=== PATIENT | female | born 1955 | race Caucasian/White ===

== ENCOUNTER → 2017-01-17 | Outpatient (CLI) | payer OTHER ==
--- NOTE | 2017-01-19 08:00 | MM ---
Reason for exam: screening (asymptomatic). Last mammogram was performed 3 years ago. History: Patient is postmenopausal. Physical Findings: A clinical breast exam by your physician is recommended on an annual basis and results should be correlated with mammographic findings. MG Screening Mammo w CAD Bilateral CC and MLO view(s) were taken. Prior study comparison: January 30, 2014, bilateral MG screening mammo w CAD. September 23, 1998, bilateral screening mammogram. The breast tissue is heterogeneously dense. This may lower the sensitivity of mammography. New oil cyst anterior right breast. No significant changes when compared with prior studies. ASSESSMENT: Negative, BI-RAD 1 RECOMMENDATION: Routine screening mammogram of both breasts in 1 year.
== END | disposition home or self-care (01) ==
LOC: RADMAMWWP 13:44
PROVIDERS: ATTEND Internal Medicine
DX: Z12.31 Encounter for screening mammogram for malignant neoplasm of breast (principal)

== ENCOUNTER 2017-01-22 03:56 | Inpatient (IN) | payer OTHER ==
[2017-01-22] MEDS ORDERED: SODIUM CHLORIDE 0.9% 500 ML IV STA (04:09)
[2017-01-22] MEDS ORDERED: ACETYLCYSTEINE IV 10,000 MG in DEXTROSE 5% IN WATER 200 ML IV ONE ×2 (04:09)
[2017-01-22] MEDS ORDERED: ONDANSETRON 4 MG/2 ML VIAL IVP PRN (04:09)
[2017-01-22] MEDS ORDERED: SODIUM CHLORIDE 0.9% 1,000 ML IV STA (04:09)
--- NOTE | 2017-01-22 04:17 | ED ---
General Adult HPI - General Chief complaint: Overdose Stated complaint: Suicidal Time Seen by Provider: 01/22/17 04:08 Source: EMS, RN notes reviewed, old records reviewed Mode of arrival: EMS Limitations: no limitations - History of Present Illness Initial comments: This is a 7-year-old female to the ER for evaluation for overdose. Patient took unknown quantity of Tylenol, patient states she took anywhere from 20-48 pills of Tylenol PM which contained 500 mg of Tylenol. Patient took overdose and suicide attempt - Related Data Home Medications Medication Instructions Recorded Confirmed Albuterol Inhaler [Ventolin 1 - 2 puff INHALATION Q6HR PRN 03/12/14 07/11/15 Inhaler] Fluticasone/Salmeterol [Advair 1 puff INHALATION BID PRN 03/12/14 07/11/15 500-50 Diskus] Acetaminophen/Diphenhydramine 1 tab PO HS PRN 07/11/15 07/11/15 [Tylenol PM 500-25mg] Albuterol Updraft (Unknown Dose) 1 dose INHALATION DIRECTED PRN 07/11/1508/20 Cholecalciferol (Vitamin D3) 50,000 unit PO QMONTH 07/11/15 07/11/15 [Vitamin D] Folic Acid 1 mg PO DAILY 07/11/15 07/11/15 HYDROcodone/APAP 5-325MG [Sodus 1 tab PO Q6HR PRN 07/11/15 07/11/15 5-325] LORazepam [Ativan] 1 mg PO DAILY 07/11/15 07/11/15 Methylphenidate HCl [Ritalin] 20 mg PO TID 07/11/15 07/11/15 Pantoprazole Sodium [Protonix] 40 mg PO DAILY 07/11/15 07/11/15 Potassium Chloride [K-Tab ER] 10 meq PO DAILY 07/11/15 07/11/15 Thiamine [Vitamin B-1] 100 mg PO DAILY 07/11/15 07/11/15 Previous Rx's Medication Instructions Recorded HYDROcodone/APAP 7.5-325MG [Sodus 1 each PO Q4H PRN #60 tab 07/16/15 7.5] Allergies Allergy/AdvReac Type Severity Reaction Status Date / Time No Known Allergies Allergy Verified 07/11/15 09:20 Review of Systems ROS Statement: Those systems with pertinent positive or pertinent negative responses have been documented in the HPI. ROS Other: All systems not noted in ROS Statement are negative. Past Medical History Past Medical History: Asthma, GERD/Reflux, Osteoarthritis (OA) Additional Past Medical History / Comment(s): ARTHRITIS IN NECK, SEE'S DR TORIBIO FOR ELEVATED LIVER ENZYMES., HX OF PERFORATED STOMACH ULCER., INCISIONAL HERNIA., PT STATES LASER SURGERY SCHEDULED FOR VARICOSE VEINS 07/25/15. History of Any Multi-Drug Resistant Organisms: None Reported Past Surgical History: Tubal Ligation Additional Past Surgical History / Comment(s): PLASTIC SURGERY TO FOREHEAD, PERFORATED STOMACH ULCER. Past Anesthesia/Blood Transfusion Reactions: No Reported Reaction Past Psychological History: ADD/ADHD, Anxiety Smoking Status: Current every day smoker Past Alcohol Use History: None Reported Past Drug Use History: None Reported - Past Family History Mother Family Medical History: Cancer Additional Family Medical History / Comment(s): OVARIAN CA General Exam Limitations: no limitations General appearance: alert, in no apparent distress Head exam: Present: atraumatic, normocephalic, normal inspection Eye exam: Present: normal appearance, PERRL, EOMI. Absent: scleral icterus, conjunctival injection, periorbital swelling ENT exam: Present: normal exam, mucous membranes moist Neck exam: Present: normal inspection. Absent: tenderness, meningismus, lymphadenopathy Respiratory exam: Present: normal lung sounds bilaterally. Absent: respiratory distress, wheezes, rales, rhonchi, stridor Cardiovascular Exam: Present: regular rate, normal rhythm, normal heart sounds. Absent: systolic murmur, diastolic murmur, rubs, gallop, clicks GI/Abdominal exam: Present: soft, normal bowel sounds. Absent: distended, tenderness, guarding, rebound, rigid Extremities exam: Present: normal inspection, full ROM, normal capillary refill. Absent: tenderness, pedal edema, joint swelling, calf tenderness Back exam: Present: normal inspection Neurological exam: Present: alert, oriented X3, CN II-XII intact Psychiatric exam: Present: normal affect, normal mood Skin exam: Present: warm, dry, intact, normal color. Absent: rash Course Vital Signs 01/22/17 04:01 Temperature 97.1 F L Pulse Rate 98 Respiratory 18 Rate Blood Pressure 151/74 O2 Sat by Pulse 98 Oximetry - Reevaluation(s) Reevaluation #1: 01/22/17 04:16 Time of overdose 0310 Patient is started on Mucomyst due to severity and of overdose Medical Decision Making - Medical Decision Making 61 female to ER for evaluation of overdose, overdose with Tylenol PM. Patient is awake and alert able to be aroused, mildly drowsy but breathing appropriately. Patient is severely elevated Tylenol level, patient will be admitted for Tylenol overdose - Lab Data Result diagrams: 01/22/17 04:10 01/22/17 04:10 Lab Results 01/22/17 01/22/17 01/22/17 Range/Units 04:10 04:10 04:10 WBC 6.4 (3.8-10.6) k/uL RBC 4.49 (3.80-5.40) m/uL Hgb 13.3 (11.4-16.0) gm/dL Hct 40.9 (34.0-46.0) % MCV 91.1 (80.0-100.0) fL MCH 29.6 (25.0-35.0) pg MCHC 32.5 (31.0-37.0) g/dL RDW 13.8 (11.5-15.5) % Plt Count 132 L (150-450) k/uL Neutrophils % (Manual) 35 % Lymphocytes % (Manual) 61 % Monocytes % (Manual) 4 % Neutrophils # (Manual) 2.24 (1.3-7.7) k/uL Lymphocytes # (Manual) 3.90 (1.0-4.8) k/uL Monocytes # (Manual) 0.26 (0-1.0) k/uL Nucleated RBCs 0 (0-0) /100 WBC Manual Slide Review Performed PT 11.3 (9.0-12.0) sec INR 1.1 (<1.2) Sodium 134 L (137-145) mmol/L Potassium 3.8 (3.5-5.1) mmol/L Chloride 103 (98-107) mmol/L Carbon Dioxide 17 L (22-30) mmol/L Anion Gap 14 mmol/L BUN 4 L (7-17) mg/dL Creatinine 0.50 L (0.52-1.04) mg/dL Est GFR (MDRD) Af Amer >60 (>60 ml/min/1.73 sqM) Est GFR (MDRD) Non-Af >60 (>60 ml/min/1.73 sqM) Glucose 73 L (74-99) mg/dL Calcium 9.1 (8.4-10.2) mg/dL Total Bilirubin 0.5 (0.2-1.3) mg/dL AST 152 H (14-36) U/L ALT 95 H (9-52) U/L Alkaline Phosphatase 79 (38-126) U/L Total Protein 8.3 H (6.3-8.2) g/dL Albumin 4.1 (3.5-5.0) g/dL Lipase 127 (23-300) U/L Salicylates 1.1 mg/dL Acetaminophen 143.0 H* ug/mL Serum Alcohol 209 mg/dL Disposition Clinical Impression: Acetaminophen overdose, Suicide attempt Disposition: ADMITTED IP TO THIS HOSP Condition: Critical Referrals: Car Beltran MD [Primary Care Provider] - 1-2 days
[2017-01-22 04:29] LABS: CH 30.1; CHCM 33.2; HCT 40.9 % (34.0-46.0); HGB 13.3 gm/dL (11.4-16.0); MCH 29.6 pg (25.0-35.0); MCHC 32.5 g/dL (31.0-37.0); MCV 91.1 fL (80.0-100.0); Mean Platelet Volume 6.8; RBC 4.49 m/uL (3.80-5.40); RDW 13.8 % (11.5-15.5); WBC 6.4 k/uL (3.8-10.6); WBC (Perox) 6.25
[2017-01-22 04:38] LABS: INR 1.1 (<1.2); Prothrombin Time 11.3 sec (9.0-12.0)
[2017-01-22 04:39] LABS: ALT 95 U/L (9-52); AST 152 U/L (14-36); Alkaline Phosphatase 79 U/L (38-126); Anion Gap 14 mmol/L; Blood Urea Nitrogen 4 mg/dL (7-17); Calcium 9.1 mg/dL (8.4-10.2); Carbon Dioxide 17 mmol/L (22-30); Chloride 103 mmol/L (98-107); Glucose 73 mg/dL (74-99); Non-African American GFR(MDRD) >60 (>60 ml/min/1.73 sqM); Potassium 3.8 mmol/L (3.5-5.1); Salicylate 1.1 mg/dL; Sodium 134 mmol/L (137-145); Total Bilirubin 0.5 mg/dL (0.2-1.3); Total Protein 8.3 g/dL (6.3-8.2)
[2017-01-22 04:56] LABS: Add Differential Manual Differential
[2017-01-22 04:58] LABS: Alcohol 209 mg/dL; Manual Review Performed; Nucleated Red Blood Cells 0 /100 WBC (0-0); Total Cells Counted 100
[2017-01-22] MEDS ORDERED: SODIUM CHLORIDE 0.9% 1,000 ML IV ONE (05:02)
[2017-01-22 05:30] LABS: Creatine Kinase MB 1.4 ng/mL (0.0-2.4)
[2017-01-22 05:37] LABS: Appearance,Urine Clear (Clear); Bilirubin,Urine Negative (Negative); Glucose,Urine (UA) Negative (Negative); Ketones,Urine Negative (Negative); Leukocyte Esterase,Urine Negative (Negative); Nitrite,Urine Negative (Negative); Protein,Urine Negative (Negative); Specific Gravity,Urine 1.003 (1.001-1.035); UA Billing (MACRO vs. MICRO) CHEM; Urobilinogen,Urine <2.0 mg/dL (<2.0)
[2017-01-22] MEDS ORDERED: DEXTROSE 5% IV ONE ×4 (05:40→10:15)
[2017-01-22] MEDS ORDERED: ACETYLCYSTEINE IV ONE ×4 (05:40→10:15)
[2017-01-22] MEDS ORDERED: WATER IV ONE ×4 (05:40→10:15)
[2017-01-22 08:45] VITALS: RESP 18
[2017-01-22] MEDS ORDERED: LORazepam 2 MG/ML INJ IV PRN ×2 (11:59)
[2017-01-22 12:01] LABS: Basophils % (A) 1 %; CHCM 31.9; Eosinophils # (A) 0.1 k/uL (0-0.7); Eosinophils % (A) 1 %; HCT 40.7 % (34.0-46.0); HDW 2.34; Luc # (Auto) 0.06; Luc % (Auto) 2; Lymphocytes % (A) 54 %; MCH 30.1 pg (25.0-35.0); MCHC 31.9 g/dL (31.0-37.0); MCV 94.5 fL (80.0-100.0); Mean Platelet Volume 7.7; Monocytes # (A) 0.3 k/uL (0-1.0); Monocytes % (A) 8 %; Neutrophils # (A) 1.3 k/uL (1.3-7.7); Neutrophils % (A) 34 %; RBC 4.31 m/uL (3.80-5.40); RDW 14.8 % (11.5-15.5); WBC 3.7 k/uL (3.8-10.6); WBC (Perox) 3.47
[2017-01-22] MEDS ORDERED: THIAMINE 100 MG/ML 2 ML VIAL IM STA (12:01)
--- NOTE | 2017-01-22 12:03 | P.HPIM ---
History of Present Illness H&P Date: 01/22/17 Chief Complaint: Tylenol overdose/suicidal attempt Clara Marshall is a 61-year-old female patient of Dr. Morales who presented to the [facility] emergency room after taking about 30-50 pills of Tylenol PM in an apparent suicidal attempt, patient was evaluated in the emergency room she had elevated acetaminophen level at 143, she was started on Acetylcysteine IV and was admitted to telemetry floor for further evaluation. Liver enzymes were elevated on presentation at 152 and 95, patient also admits to drinking alcohol, family at bedside also states that she has used drugs in the past, urine toxicology testing was positive only for acetaminophen. Patient was also started on the CIWA protocol she is being monitored on telemetry. Psychiatry consultation has been requested, patient is threatening to leave the hospital, family are requesting that she would be petitioned so she wouldn't have to stay and finished treatment. Patient has a known history of hepatitis C also history of peptic ulcer disease requiring surgery 2 years ago also there is a history of laser treatment to the right lower extremity for varicose vein patient states that she has chronic pain in her right lower extremity. Patient also has known history of asthma, GERD, and osteoarthritis. Past Medical History Past Medical History: Asthma, GERD/Reflux, Osteoarthritis (OA) Additional Past Medical History / Comment(s): ARTHRITIS IN NECK, SEE'S DR TORIBIO FOR ELEVATED LIVER ENZYMES., HX OF PERFORATED STOMACH ULCER., INCISIONAL HERNIA., LASER SURGERY FOR VARICOSE VEINS 07/25/15. Maggi states patient has HEPATITIS C History of Any Multi-Drug Resistant Organisms: None Reported Past Surgical History: Tubal Ligation Additional Past Surgical History / Comment(s): PLASTIC SURGERY TO FOREHEAD, PERFORATED STOMACH ULCER. laser surgery to right leg for varicose veins Past Anesthesia/Blood Transfusion Reactions: No Reported Reaction Past Psychological History: ADD/ADHD, Anxiety, Depression Additional Psychological History / Comment(s): Patient has not been taking ritalin per sister and has been very depressed for years, but has never taken medication for depression. Smoking Status: Current every day smoker Past Alcohol Use History: None Reported Additional Past Alcohol Use History / Comment(s): STARTED SMOKING AT AGE 13 per sister, SMOKING NOW 1/2 PPD at least, is a heavy smoker and chain smokes when able. SMOKING FOR 48 YEARS. 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 Also known to smoke crack in October/November 2016. Sister believes that she is not using anything at this time. - Past Family History Mother Family Medical History: Cancer Additional Family Medical History / Comment(s): OVARIAN CA Father History Unknown: Yes Additional Family Medical History / Comment(s): father when patient was very young (2 year old), he of a gunshot wound outside of a bar at the age of 23 Medications and Allergies Home Medications Medication Instructions Recorded Confirmed Type Albuterol Inhaler [Ventolin 1 - 2 puff INHALATION RT-Q6H PRN 03/12/14 01/22/17 History Inhaler] Fluticasone/Salmeterol [Advair 1 puff INHALATION RT-BID PRN 03/12/14 01/22/17 History 500-50 Diskus] Acetaminophen/Diphenhydramine 1 tab PO HS PRN 07/11/15 01/22/17 History [Tylenol PM 500-25mg] Cholecalciferol (Vitamin D3) 50,000 unit PO FR 07/11/15 01/22/17 History [Vitamin D] Pantoprazole Sodium [Protonix] 40 mg PO DAILY 07/11/15 01/22/17 History Potassium Chloride [K-Tab ER] 10 meq PO DAILY 07/11/15 01/22/17 History Allergies Allergy/AdvReac Type Severity Reaction Status Date / Time methylphenidate Allergy Anaphylaxis Verified 01/22/17 11:36 [From Ritalin] Physical Exam Vitals: Vital Signs Temp Pulse Pulse Resp BP BP Pulse Ox 01/22/17 11:16 96.8 F L 85 18 145/97 98 01/22/17 08:00 96.8 F L 85 18 145/97 98 01/22/17 06:30 97.2 F L 88 19 152/100 100 01/22/17 05:55 80 20 116/74 98 01/22/17 04:50 90 20 119/71 99 01/22/17 04:01 97.1 F L 98 18 151/74 98 Intake and Output 01/21/17 01/22/17 01/22/17 22:59 06:59 14:59 Intake Total 360 Balance 360 Intake: Oral 360 Other: Weight 66.678 kg 63 kg Patient Weight 01/23/17 06:59 Weight 63 kg In general patient is alert and oriented 3 in no apparent distress with easy irritability HEENT head normocephalic and atraumatic Neck is supple no JVD no goiter no lymphadenopathy no carotid bruit Cardiac exam reveals regular heart sounds S1 and S2 no gallops no murmurs Abdomen is soft nontender no organomegaly with normal bowel sounds Extremity exam reveals no edema no cyanosis or clubbing Neurological examination reveals no gross focal deficit Results CBC & Chem 7: 01/22/17 04:10 01/22/17 04:10 Labs: Abnormal Lab Results - Last 24 Hours (Table) 01/22/17 01/22/17 01/22/17 Range/Units 04:10 04:10 06:50 Plt Count 132 L (150-450) k/uL Sodium 134 L (137-145) mmol/L Carbon Dioxide 17 L (22-30) mmol/L BUN 4 L (7-17) mg/dL Creatinine 0.50 L (0.52-1.04) mg/dL Glucose 73 L (74-99) mg/dL AST 152 H (14-36) U/L ALT 95 H (9-52) U/L Total Protein 8.3 H (6.3-8.2) g/dL Acetaminophen 143.0 H* 148.0 H* ug/mL Thrombosis Risk Factor Assmnt - Choose All That Apply Each Factor Represents 1 point: Obesity (BMI >25) Other Risk Factors: Yes Each Risk Factor Represents 2 Points: Age 61-74 years Thrombosis Risk Factor Assessment Total Risk Factor Score: 3 Thrombosis Risk Factor Assessment Level: Moderate Risk Assessment and Plan Plan: #1 suicidal attempt by ingesting 30-50 Tylenol PM tablets #2 elevated liver enzymes #3 history of alcohol abuse #4 history of tobacco abuse #5 underlying history of hepatitis C #6 underlying history of peptic ulcer disease At this time continue with Acetylcystein infusion, recheck Tylenol level at 4 PM Start with CIWA protocol in anticipation of any alcohol withdrawal Start with nicotine patches Prognosis is very guarded critical care consultation was requested
[2017-01-22 12:26] LABS: Manual Review Performed
[2017-01-22 12:45] LABS: ALT 86 U/L (9-52); AST 113 U/L (14-36); Alkaline Phosphatase 60 U/L (38-126); Amylase 53 U/L (30-110); Anion Gap 14 mmol/L; Blood Urea Nitrogen 3 mg/dL (7-17); Calcium 9.1 mg/dL (8.4-10.2); Carbon Dioxide 16 mmol/L (22-30); Chloride 110 mmol/L (98-107); Glucose 86 mg/dL (74-99); Non-African American GFR(MDRD) >60 (>60 ml/min/1.73 sqM); Potassium 4.1 mmol/L (3.5-5.1); Sodium 140 mmol/L (137-145); Total Bilirubin 0.4 mg/dL (0.2-1.3); Total Protein 8.4 g/dL (6.3-8.2)
[2017-01-22 12:50] LABS: Acetaminophen 74.9 ug/mL
--- NOTE | 2017-01-22 13:00 | P.CNPUL ---
History of Present Illness Consult date: 01/22/17 Reason for consult: other Chief complaint: Tylenol overdose History of present illness: Consult dated 01/22/2017 61-year-old female with a history of ingesting somewhere between 20-48 pills of Tylenol PM. The Tylenol containing 500 mg of acetaminophen. This would clearly be a toxic relief of dose of Tylenol if in fact she took this much. Her top her Tylenol levels are very high. Currently she is doing reasonably well on the floor in room 680. She was started on IV N-acetylcysteine. I did ask for a repeat of her labs including a CBC compress a metabolic profile amylase lipase and also a ammonia level. The patient does have a history of COPD. She is a smoker. Does drink quite a bit of a day. May be 2 or 3 large beers a day she tells us. She states this was not a suicide attempt but some of her family members believe that it was because her and her boyfriend/ argue all the time. In addition, she takes some vitamin D and Protonix for her stomach. She does have a history of acid reflux disease and COPD/asthma. She has a history of arthritis and apparently sees Dr. Zaldivar for elevated liver enzymes. I suspect it might relate to nonalcoholic steatohepatitis or alcoholic liver disease. I was asked to see her by Dr. Ordonez. Review of Systems Other than being a bit restless, the patient really has no major complaints at this time. No pain. No shortness of breath or difficulty breathing. The rest of the 12 point review of system is unremarkable. Past Medical History Past Medical History: Asthma, GERD/Reflux, Osteoarthritis (OA) Additional Past Medical History / Comment(s): ARTHRITIS IN NECK, SEE'S DR TORIBIO FOR ELEVATED LIVER ENZYMES., HX OF PERFORATED STOMACH ULCER., INCISIONAL HERNIA., LASER SURGERY FOR VARICOSE VEINS 07/25/15. Maggi states patient has HEPATITIS C History of Any Multi-Drug Resistant Organisms: None Reported Past Surgical History: Tubal Ligation Additional Past Surgical History / Comment(s): PLASTIC SURGERY TO FOREHEAD, PERFORATED STOMACH ULCER. laser surgery to right leg for varicose veins Past Anesthesia/Blood Transfusion Reactions: No Reported Reaction Past Psychological History: ADD/ADHD, Anxiety, Depression Additional Psychological History / Comment(s): Patient has not been taking ritalin per sister and has been very depressed for years, but has never taken medication for depression. Smoking Status: Current every day smoker Past Alcohol Use History: None Reported Additional Past Alcohol Use History / Comment(s): STARTED SMOKING AT AGE 13 per sister, SMOKING NOW 1/2 PPD at least, is a heavy smoker and chain smokes when able. SMOKING FOR 48 YEARS. 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 Also known to smoke crack in October/November 2016. Sister believes that she is not using anything at this time. - Past Family History Mother Family Medical History: Cancer Additional Family Medical History / Comment(s): OVARIAN CA Father History Unknown: Yes Additional Family Medical History / Comment(s): father when patient was very young (2 year old), he of a gunshot wound outside of a bar at the age of 23 Medications and Allergies Home Medications Medication Instructions Recorded Confirmed Type Albuterol Inhaler [Ventolin 1 - 2 puff INHALATION RT-Q6H PRN 03/12/14 01/22/17 History Inhaler] Fluticasone/Salmeterol [Advair 1 puff INHALATION RT-BID PRN 03/12/14 01/22/17 History 500-50 Diskus] Acetaminophen/Diphenhydramine 1 tab PO HS PRN 07/11/15 01/22/17 History [Tylenol PM 500-25mg] Cholecalciferol (Vitamin D3) 50,000 unit PO FR 07/11/15 01/22/17 History [Vitamin D] Pantoprazole Sodium [Protonix] 40 mg PO DAILY 07/11/15 01/22/17 History Potassium Chloride [K-Tab ER] 10 meq PO DAILY 07/11/15 01/22/17 History Allergies Allergy/AdvReac Type Severity Reaction Status Date / Time methylphenidate Allergy Anaphylaxis Verified 01/22/17 11:36 [From Ritalin] Physical Exam Osteopathic Statement: *. No significant issues noted on an osteopathic structural exam other than those noted in the History and Physical/Consult. Vitals: Vital Signs Temp Pulse Pulse Resp BP BP Pulse Ox 01/22/17 12:00 97.9 F 91 18 162/94 98 01/22/17 11:16 96.8 F L 85 18 145/97 98 11/18/17 08:00 96.8 F L 85 18 145/97 98 01/22/17 06:30 97.2 F L 88 19 152/100 100 01/22/17 05:55 80 20 116/74 98 01/22/17 04:50 90 20 119/71 99 01/22/17 04:01 97.1 F L 98 18 151/74 98 Intake and Output 01/21/17 01/22/17 01/22/17 22:59 06:59 14:59 Intake Total 360 Balance 360 Intake: Oral 360 Other: Weight 66.678 kg 63 kg Patient Weight 01/23/17 06:59 Weight 63 kg No acute distress, oriented 3. HEENT examination is grossly unremarkable. Mucous membranes are moist. No oral lesions. Neck supple. Full range of motion. No adenopathy thyromegaly or neck vein distention. Cardiovascular examination reveals regular rhythm rate. S1-S2 normal. No S3 or S4. No discernible murmur noted. Lungs reveal a few scattered rhonchi. No wheezes or crackles. Rest sounds are equal. Abdomen soft bowel sounds are heard. No masses or tenderness. Extremities are intact. No cyanosis clubbing or edema. Skin is without rash or lesion. Neurologic examination is brief but nonfocal. Results - Laboratory Findings CBC and BMP: 01/22/17 11:50 01/22/17 12:15 PT/INR, D-dimer PT 11.3 sec (9.0-12.0) 01/22/17 04:10 INR 1.1 (<1.2) 01/22/17 04:10 Abnormal lab findings: Abnormal Labs 01/22/17 01/22/17 01/22/17 04:10 04:10 06:50 WBC Plt Count 132 L Sodium 134 L Chloride Carbon Dioxide 17 L BUN 4 L Creatinine 0.50 L Glucose 73 L AST 152 H ALT 95 H Total Protein 8.3 H Acetaminophen 143.0 H* 148.0 H* 01/22/17 01/22/17 11:50 12:15 WBC 3.7 L Plt Count 126 L Sodium Chloride 110 H Carbon Dioxide 16 L BUN 3 L Creatinine 0.48 L Glucose AST 113 H ALT 86 H Total Protein 8.4 H Acetaminophen 74.9 H* - Diagnostic Findings Chest x-ray: image reviewed (Labs x-rays a medications are all reviewed.) Assessment and Plan (1) COPD (chronic obstructive pulmonary disease) Current Visit: Yes Status: Acute Code(s): J44.9 - CHRONIC OBSTRUCTIVE PULMONARY DISEASE, UNSPECIFIED SNOMED Code(s): 81128640 (2) Nicotine abuse Current Visit: Yes Status: Acute Code(s): Z72.0 - TOBACCO USE SNOMED Code( s): 45342074 (3) Chronic alcohol abuse Current Visit: Yes Status: Acute Code(s): F10.10 - ALCOHOL ABUSE, UNCOMPLICATED SNOMED Code(s): 417146041 (4) GERD (gastroesophageal reflux disease) Current Visit: Yes Status: Acute Code(s): K21.9 - GASTRO-ESOPHAGEAL REFLUX DISEASE WITHOUT ESOPHAGITIS SNOMED Code(s): 746880081 (5) Arthritis Current Visit: Yes Status: Acute Code(s): M19.90 - UNSPECIFIED OSTEOARTHRITIS, UNSPECIFIED SITE SNOMED Code(s): 1416387 (6) Steatohepatitis Current Visit: Yes Status: Acute Code(s): K75.81 - NONALCOHOLIC STEATOHEPATITIS (ALVARADO) SNOMED Code(s): 463787323 (7) Steatohepatitis, alcoholic Current Visit: Yes Status: Acute Code(s): K70.10 - ALCOHOLIC HEPATITIS WITHOUT ASCITES SNOMED Code(s): 038711369 (8) Acetaminophen overdose Current Visit: Yes Status: Acute Code(s): T39.1X1A - POISONING BY 4- AMINOPHENOL DERIVATIVES, ACCIDENTAL, INIT SNOMED Code(s): 189958297 (9) Suicide attempt Current Visit: Yes Status: Acute Code(s): T14.91XA - SUICIDE ATTEMPT, INITIAL ENCOUNTER SNOMED Code(s): 25614944 Plan: Plan dated 01/22/2017 The patient is on IV N-acetylcysteine. The Tylenol levels apparently are coming down. The patient had a repeat set of enzymes and liver tests drawn. I also asked for an amylase level of lipase level and an ammonia level. Pending those results and clinical status of the patient, we'll make a decision about whether or not the patient should stay here will be transferred. For now the patient seemed relatively stable. We'll review the medications. We'll review the labs and x-rays. Additional recommendations and suggestions are forthcoming. Prognosis is guarded as she took a very high dose Tylenol if in fact she took as many as was stated. Time with Patient: Greater than 30
[2017-01-22] MEDS: NICOTINE 14MG/24HR PATCH TRANSDERM SCH (14:41)
[2017-01-22] MEDS: MULTIVITAMINS, THERA 1 EACH TAB PO SCH (14:42)
[2017-01-22] MEDS: SODIUM CHLORIDE 0.9% 1,000 ML IV SCH (14:43)
[2017-01-22] MEDS: LORazepam 2 MG/ML INJ IV PRN (14:51)
[2017-01-22 16:13] LABS: ALT 85 U/L (9-52); AST 104 U/L (14-36); Acetaminophen 20.9 ug/mL; Alkaline Phosphatase 64 U/L (38-126); Anion Gap 11 mmol/L; Blood Urea Nitrogen 5 mg/dL (7-17); Calcium 9.3 mg/dL (8.4-10.2); Carbon Dioxide 19 mmol/L (22-30); Chloride 110 mmol/L (98-107); Glucose 102 mg/dL (74-99); Non-African American GFR(MDRD) >60 (>60 ml/min/1.73 sqM); Potassium 3.7 mmol/L (3.5-5.1); Sodium 140 mmol/L (137-145); Total Bilirubin 0.4 mg/dL (0.2-1.3); Total Protein 7.9 g/dL (6.3-8.2)
[2017-01-22] MEDS: THIAMINE 100 MG TAB PO SCH (16:53)
[2017-01-23] MEDS: SODIUM CHLORIDE 0.9% 1,000 ML IV SCH ×2 (05:54→15:26)
[2017-01-23 06:23] LABS: Basophils % (A) 1 %; CH 29.9; Eosinophils # (A) 0.1 k/uL (0-0.7); Eosinophils % (A) 1 %; HDW 2.49; HGB 12.1 gm/dL (11.4-16.0); Luc # (Auto) 0.07; Luc % (Auto) 2; Lymphocytes # (A) 1.7 k/uL (1.0-4.8); Lymphocytes % (A) 41 %; MCH 29.7 pg (25.0-35.0); MCHC 31.7 g/dL (31.0-37.0); MCV 93.8 fL (80.0-100.0); Mean Platelet Volume 7.5; Monocytes # (A) 0.5 k/uL (0-1.0); Monocytes % (A) 11 %; Neutrophils # (A) 1.9 k/uL (1.3-7.7); Neutrophils % (A) 45 %; RBC 4.06 m/uL (3.80-5.40); RDW 13.7 % (11.5-15.5); WBC 4.1 k/uL (3.8-10.6); WBC (Perox) 4.14
[2017-01-23 06:28] LABS: ALT 79 U/L (9-52); AST 105 U/L (14-36); Acetaminophen <10.0 ug/mL; Alkaline Phosphatase 95 U/L (38-126); Anion Gap 8 mmol/L; Blood Urea Nitrogen 9 mg/dL (7-17); Calcium 9.3 mg/dL (8.4-10.2); Carbon Dioxide 21 mmol/L (22-30); Chloride 112 mmol/L (98-107); Glucose 105 mg/dL (74-99); Non-African American GFR(MDRD) >60 (>60 ml/min/1.73 sqM); Potassium 3.8 mmol/L (3.5-5.1); Sodium 141 mmol/L (137-145); Total Bilirubin 0.4 mg/dL (0.2-1.3); Total Protein 7.1 g/dL (6.3-8.2)
[2017-01-23] MEDS ORDERED: NITROGLYCERIN SL TABS 0.4 MG TAB SUBLINGUAL ONE (07:56)
[2017-01-23] MEDS: LORazepam 2 MG/ML INJ IV PRN (08:06)
[2017-01-23] MEDS: NICOTINE 14MG/24HR PATCH TRANSDERM SCH (08:06)
[2017-01-23] MEDS ORDERED: ALBUTEROL NEBULIZED 2.5 MG/3 ML INHALATION PRN (08:15)
[2017-01-23] MEDS ORDERED: SYMBICORT 160-4.5 MCG INHALER INHALATION PRN (08:16)
--- NOTE | 2017-01-23 08:25 | P.PN ---
Subjective Progress Note Date: 01/23/17 Principal diagnosis: Clara Marshall is a 61-year-old female patient of Dr. Morales who presented to the [facility] emergency room after taking about 30-50 pills of Tylenol PM in an apparent suicidal attempt, patient was evaluated in the emergency room she had elevated acetaminophen level at 143, she was started on Acetylcysteine IV and was admitted to telemetry floor for further evaluation. Liver enzymes were elevated on presentation at 152 and 95, patient also admits to drinking alcohol, family at bedside also states that she has used drugs in the past, urine toxicology testing was positive only for acetaminophen. Patient was also started on the CIWA protocol she is being monitored on telemetry. Psychiatry consultation has been requested, patient is threatening to leave the hospital, family are requesting that she would be petitioned so she wouldn't have to stay and finished treatment. Patient has a known history of hepatitis C also history of peptic ulcer disease requiring surgery 2 years ago also there is a history of laser treatment to the right lower extremity for varicose vein patient states that she has chronic pain in her right lower extremity. Patient also has known history of asthma, GERD, and osteoarthritis. on 01/23/2017 patient is feeling better she is alert and oriented in no apparent distress, she had an episode of sharp pain in the left side of her chest earlier that lasted for a few seconds EKG was done and was within normal limits pain resolved spontaneously before patient could get any sublingual nitro , she is also complaining of headache otherwise she denies any complaints there is no nausea or vomiting no abdominal pain and no urinary symptoms. Acetaminophen level is less than 10, liver enzymes slightly elevated. Objective - Vital Signs Vital signs: Vital Signs Temp 98.2 F 01/23/17 04:00 Pulse 89 01/23/17 04:00 Resp 18 01/23/17 04:00 BP 153/87 01/23/17 04:00 Pulse Ox 99 01/23/17 04:00 Intake & Output 01/22/17 01/23/17 01/23/17 18:59 06:59 18:59 Intake Total 1640 1600 Output Total 1500 900 Balance 140 700 Weight 63 kg 69.7 kg Intake: Intake, IV Titration 1160 1600 Amount Acetylcysteine IV 3,625 741 3183 mg In Dextrose 5% in Water 500 ml @ 125 mls/hr IV ONCE ONE Rx#: [id number] Sodium Chloride 0.9% 1, 300 000 ml @ 100 mls/hr IV . Q10H ONE Rx#:[id number] Sodium Chloride 0.9% 1, 375 600 000 ml @ 75 mls/hr IV . [id number] [facility] Rx#:[id number] Oral 480 Output: Urine 1500 900 Other: Voiding Method Bedside Commode Bedside Commode # Voids 3 - Exam In general patient is alert and oriented 3 in no apparent distress HEENT head normocephalic and atraumatic Neck is supple no JVD no goiter no lymphadenopathy Chest exam reveals a few scattered crackles no wheezing Cardiac exam reveals regular heart sounds no gallops no murmurs Abdomen is soft nontender no organomegaly with normal bowel sounds Extremity exam reveals no edema no cyanosis or clubbing - Labs CBC & Chem 7: 01/23/17 05:15 01/23/17 05:15 Labs: Abnormal Lab Results - Last 24 Hours (Table) 01/22/17 01/22/17 01/22/17 Range/Units 06:50 11:50 12:15 WBC 3.7 L (3.8-10.6) k/uL Plt Count 126 L (150-450) k/uL Chloride 110 H (98-107) mmol/L Carbon Dioxide 16 L (22-30) mmol/L BUN 3 L (7-17) mg/dL Creatinine 0.48 L (0.52-1.04) mg/dL Glucose (74-99) mg/dL AST 113 H (14-36) U/L ALT 86 H (9-52) U/L Total Protein 8.4 H (6.3-8.2) g/dL Albumin (3.5-5.0) g/dL Acetaminophen 148.0 H* 74.9 H* ug/mL 01/22/17 01/23/17 01/23/17 Range/Units 15:42 05:15 05:15 WBC (3.8-10.6) k/uL Plt Count 124 L (150-450) k/uL Chloride 110 H 112 H (98-107) mmol/L Carbon Dioxide 19 L 21 L (22-30) mmol/L BUN 5 L (7-17) mg/dL Creatinine (0.52-1.04) mg/dL Glucose 102 H 105 H (74-99) mg/dL AST 104 H 105 H (14-36) U/L ALT 85 H 79 H (9-52) U/L Total Protein (6.3-8.2) g/dL Albumin 3.4 L (3.5-5.0) g/dL Acetaminophen ug/mL Assessment and Plan Plan: #1 suicidal attempt by ingesting 30-50 Tylenol PM tablets 500 mg each, Acetaminophen level less than 10 this morning #2 elevated liver enzymes, stable since yesterday #3 history of alcohol abuse #4 history of tobacco abuse #5 underlying history of hepatitis C #6 underlying history of peptic ulcer disease At this time continue with Acetylcystein infusion, recheck Tylenol level at 4 PM Start with CIWA protocol in anticipation of any alcohol withdrawal Start with nicotine patches Patient stable, will continue to monitor labs for 1 more day psychiatry consult was requested if stable patient can be discharged home tomorrow or transfer to the psych unit if psychiatrist advice that.
[2017-01-23] MEDS: THIAMINE 100 MG TAB PO SCH ×2 (08:55→17:24)
[2017-01-23] MEDS: PANTOPRAZOLE 40 MG TABLET PO SCH (08:55)
[2017-01-23] MEDS: MULTIVITAMINS, THERA 1 EACH TAB PO SCH (08:55)
[2017-01-23] MEDS: POTASSIUM CHLORIDE ER 10 MEQ TAB.ER.PRT PO SCH (08:55)
--- NOTE | 2017-01-23 11:11 | P.PN ---
Subjective Progress Note Date: 01/23/17 Principal diagnosis: Tylenol overdose Progress note dated 01/23/2017 61-year-old female that we saw yesterday in consultation for a Tylenol overdose. She also was drinking heavily. The patient had very elevated Tylenol levels. On subsequent draws so, her Tylenol level was becoming down. In addition, we did not see a rise in her liver enzymes as of yesterday. Currently doing okay today. The patient had IV N-acetylcysteine. She continue that to its normal completion. She does have a history of underlying COPD and gastroesophageal reflux disease. Heavy smoker and drinker. Has seen Dr. Ramey the [employer] superintendent in the past for elevated liver enzymes. Objective - Vital Signs Vital signs: Vital Signs Temp 98.1 F 01/23/17 08:06 Pulse 88 01/23/17 08:06 Resp 18 01/23/17 08:06 BP 149/89 01/23/17 08:06 Pulse Ox 98 01/23/17 08:06 Intake & Output 01/22/17 01/23/17 01/23/17 18:59 06:59 18:59 Intake Total 1640 1600 400 Output Total 1500 900 Balance 140 700 400 Weight 63 kg 69.7 kg Intake: Intake, IV Titration 1160 1600 400 Amount Acetylcysteine IV 3,687 926 2749 mg In Dextrose 5% in Water 500 ml @ 125 mls/hr IV ONCE ONE Rx#: [id number] Sodium Chloride 0.9% 1, 300 000 ml @ 100 mls/hr IV . Q10H ONE Rx#:[id number] Sodium Chloride 0.9% 1, 375 600 400 000 ml @ 75 mls/hr IV . [id number] [facility] Rx#:[id number] Oral 480 Output: Urine 1500 900 Other: Voiding Method Bedside Commode Bedside Commode Bedside Commode # Voids 3 - Exam No acute distress, oriented 3. HEENT examination is grossly unremarkable. Mucous membranes are moist. No oral lesions. Neck supple. Full range of motion. No adenopathy thyromegaly or neck vein distention. Cardiovascular examination reveals regular rhythm rate. S1-S2 normal. No S3 or S4. No discernible murmur noted. Lungs reveal mild bilateral rhonchi. No wheezes or crackles. Breath sounds are equal. Abdomen soft bowel sounds are heard. No masses or tenderness. Extremities are intact. No cyanosis clubbing or edema. Skin is without rash or lesion. Neurologic examination is brief but nonfocal. - Labs CBC & Chem 7: 01/23/17 05:15 01/23/17 05:15 Labs: Abnormal Lab Results - Last 24 Hours (Table) 01/22/17 01/22/17 01/22/17 Range/Units 11:50 12:15 15:42 WBC 3.7 L (3.8-10.6) k/uL Plt Count 126 L (150-450) k/uL Chloride 110 H 110 H (98-107) mmol/L Carbon Dioxide 16 L 19 L (22-30) mmol/L BUN 3 L 5 L (7-17) mg/dL Creatinine 0.48 L (0.52-1.04) mg/dL Glucose 102 H (74-99) mg/dL AST 113 H 104 H (14-36) U/L ALT 86 H 85 H (9-52) U/L Total Protein 8.4 H (6.3-8.2) g/dL Albumin (3.5-5.0) g/dL Acetaminophen 74.9 H* ug/mL 01/23/17 01/23/17 Range/Units 05:15 05:15 WBC (3.8-10.6) k/uL Plt Count 124 L (150-450) k/uL Chloride 112 H (98-107) mmol/L Carbon Dioxide 21 L (22-30) mmol/L BUN (7-17) mg/dL Creatinine (0.52-1.04) mg/dL Glucose 105 H (74-99) mg/dL AST 105 H (14-36) U/L ALT 79 H (9-52) U/L Total Protein (6.3-8.2) g/dL Albumin 3.4 L (3.5-5.0) g/dL Acetaminophen ug/mL Assessment and Plan (1) COPD (chronic obstructive pulmonary disease) Current Visit: Yes Status: Acute Code(s): J44.9 - CHRONIC OBSTRUCTIVE PULMONARY DISEASE, UNSPECIFIED SNOMED Code(s): 91668664 (2) Nicotine abuse Current Visit: Yes Status: Acute Code(s): Z72.0 - TOBACCO USE SNOMED Code( s): 75658724 (3) Chronic alcohol abuse Current Visit: Yes Status: Acute Code(s): F10.10 - ALCOHOL ABUSE, UNCOMPLICATED SNOMED Code(s): 456998539 (4) GERD (gastroesophageal reflux disease) Current Visit: Yes Status: Acute Code(s): K21.9 - GASTRO-ESOPHAGEAL REFLUX DISEASE WITHOUT ESOPHAGITIS SNOMED Code(s): 286897474 (5) Arthritis Current Visit: Yes Status: Acute Code(s): M19.90 - UNSPECIFIED OSTEOARTHRITIS, UNSPECIFIED SITE SNOMED Code(s): 9209068 (6) Steatohepatitis Current Visit: Yes Status: Acute Code(s): K75.81 - NONALCOHOLIC STEATOHEPATITIS (ALVARADO) SNOMED Code(s): 484914821 (7) Steatohepatitis, alcoholic Current Visit: Yes Status: Acute Code(s): K70.10 - ALCOHOLIC HEPATITIS WITHOUT ASCITES SNOMED Code(s): 653201335 (8) Acetaminophen overdose Current Visit: Yes Status: Acute Code(s): T39.1X1A - POISONING BY 4- AMINOPHENOL DERIVATIVES, ACCIDENTAL, INIT SNOMED Code(s): 268971339 (9) Suicide attempt Current Visit: Yes Status: Acute Code(s): T14.91XA - SUICIDE ATTEMPT, INITIAL ENCOUNTER SNOMED Code(s): 76820145 Plan: Plan dated 01/22/2017 The patient is on IV N-acetylcysteine. The Tylenol levels apparently are coming down. The patient had a repeat set of enzymes and liver tests drawn. I also asked for an amylase level of lipase level and an ammonia level. Pending those results and clinical status of the patient, we'll make a decision about whether or not the patient should stay here will be transferred. For now the patient seemed relatively stable. We'll review the medications. We'll review the labs and x-rays. Additional recommendations and suggestions are forthcoming. Prognosis is guarded as she took a very high dose Tylenol if in fact she took as many as was stated. Plan dated 01/23/2017 The patient did complete her IV N-acetylcysteine. Tylenol levels are coming down and actually this morning were less than 10. We did not see a significant rise in her liver enzymes. Hydrate this patient certainly out of the bower although will still need to continue to monitor her. She also was placed on the scene with scale for possible alcohol withdrawal. Prognosis is guarded. Psychiatry should see this patient. Additional recommendations and suggestions are forthcoming. Time with Patient: Less than 30
--- NOTE | 2017-01-23 11:50 | P.CN ---
Psychiatric Consult - . Consult date: 01/23/17 Consult:: 01/23/17 11:43 IDENTIFYING DATA: 61-year-old female patient HPI: patient admitted to the medical floor after Tylenol PM overdose. Per chart history patient took between 30 and 50 pills of Tylenol PM. Patient states she was in an argument with her boyfriend and took 30-40 Tylenol PMs because she wanted to go to sleep. She denies any significant depression recently. She feels like she is glad to be alive. Her boyfriend called the ambulance. She does not take any medications for psychiatry. She admits to worrying a lot, denies any panic attacks. She does state she had a difficult time with sleep lately. Per chart history and initial Tylenol level was 143 and now down to less than 10. Liver enzymes currently are 105/79. PAST PSYCHIATRIC HISTORY: sees a therapist at [facility] once a week. She denies any history of suicide attempts. She denies any history of inpatient psychiatric admissions. PMH:asthma, gastric esophageal reflux disease, osteoarthritis, elevated liver enzymes, stomach ulcer, hepatitis C ALLERGIES: methylphenidate MEDICATIONS: Ventolin when necessary, Symbicort, Motrin when necessary, Ativan when necessary, Theragran, Habitrol patch, Protonix, K-Dur, vitamin B1 CHEMICAL DEPENDENCY HISTORY: drinks alcohol a couple times per week, says years ago was a problem for her. FAMILY PSYCHIATRIC HISTORY: denies FAMILY CHEMICAL DEPENDENCY HISTORY: none known at this time SOCIAL HISTORY: lives with her boyfriend. She is on SSI disability. She has 3 daughters. She has been once and . MENTAL STATUS EXAM: she is alert, cooperative with the interview. Her speech is fluent, not rapid or pressured. Her thought processes are organized. Her mood is described as "I want to go home." She denies any recent or current thoughts of suicide, she denies any thoughts of harm to others.is no active evidence of psychosis. IMPRESSIONS: unspecified depressive disorder; generalized anxiety disorder; history of alcohol use disorder PLAN: I recommend inpatient psychiatric hospitalization after medical clearance. If the patient is not agreeable to sign in with a voluntary form, petition will need to be done for involuntary hospitalization. Patient requires inpatient psychiatric stabilization after overdose of Tylenol PM.she is not at this time committing to sign in as a voluntary patient. Maintain one- to-one sitter at this time for patient safety.
[2017-01-23] MEDS: IBUPROFEN 400 MG TAB PO PRN (13:28)
[2017-01-24] MEDS: IBUPROFEN 400 MG TAB PO PRN ×2 (01:36→06:27)
[2017-01-24] MEDS: SODIUM CHLORIDE 0.9% 1,000 ML IV SCH (05:26)
[2017-01-24] MEDS: PANTOPRAZOLE 40 MG TABLET PO SCH (06:23)
[2017-01-24 06:25] LABS: Basophils % (A) 1 %; CH 29.3; CHCM 31.2; Eosinophils # (A) 0.1 k/uL (0-0.7); Eosinophils % (A) 1 %; HCT 35.6 % (34.0-46.0); HDW 2.34; HGB 11.4 gm/dL (11.4-16.0); Luc # (Auto) 0.05; Luc % (Auto) 1; Lymphocytes # (A) 1.7 k/uL (1.0-4.8); Lymphocytes % (A) 48 %; MCH 30.2 pg (25.0-35.0); MCHC 32.1 g/dL (31.0-37.0); MCV 94.2 fL (80.0-100.0); Mean Platelet Volume 8.6; Monocytes # (A) 0.4 k/uL (0-1.0); Monocytes % (A) 11 %; Neutrophils # (A) 1.3 k/uL (1.3-7.7); Neutrophils % (A) 38 %; RBC 3.78 m/uL (3.80-5.40); RDW 14.6 % (11.5-15.5); WBC 3.4 k/uL (3.8-10.6); WBC (Perox) 3.42
[2017-01-24 06:41] LABS: ALT 68 U/L (9-52); AST 93 U/L (14-36); Alkaline Phosphatase 75 U/L (38-126); Anion Gap 8 mmol/L; Blood Urea Nitrogen 8 mg/dL (7-17); Calcium 9.4 mg/dL (8.4-10.2); Carbon Dioxide 21 mmol/L (22-30); Chloride 112 mmol/L (98-107); Glucose 104 mg/dL (74-99); Non-African American GFR(MDRD) >60 (>60 ml/min/1.73 sqM); Potassium 3.7 mmol/L (3.5-5.1); Sodium 141 mmol/L (137-145); Total Bilirubin 0.5 mg/dL (0.2-1.3)
[2017-01-24] MEDS: NICOTINE 14MG/24HR PATCH TRANSDERM SCH (08:21)
[2017-01-24] MEDS: POTASSIUM CHLORIDE ER 10 MEQ TAB.ER.PRT PO SCH (08:21)
[2017-01-24 11:31] VITALS: BMI 28.8
[2017-01-24] MEDS: MULTIVITAMINS, THERA 1 EACH TAB PO SCH (11:58)
[2017-01-24] MEDS: THIAMINE 100 MG TAB PO SCH (11:58)
[2017-01-24 13:04] VITALS: TEMP 97
--- NOTE | 2017-01-24 14:20 | P.DS ---
Providers Date of admission: 01/22/17 04:09 Expected date of discharge: 01/24/17 Attending physician: Car Morales Consults: 01/22/17 05:02 Consult Physician Routine Consulting Provider: Erin Hagen Consult Reason/Comments: OD Do you want consulting provider notified?: Yes 01/22/17 11:38 Consult Physician Routine Consulting Provider: Jamal Michele Consult Reason/Comments: critical care management Do you want consulting provider notified?: Yes Primary care physician: Car Morales Hospital Course: Discharge diagnosis #1 suicidal attempt by ingesting 30-50 Tylenol PM tablets 500 mg each, Acetaminophen level less than 10 this morning #2 elevated liver enzymes, stable since yesterday. Secondary to the Tylenol overdose as well as history of hepatitis C and alcohol abuse #3 history of alcohol abuse #4 history of tobacco abuse #5 underlying history of hepatitis C #6 underlying history of peptic ulcer disease Hospital course Clara Marshall is a 61-year-old female patient of Dr. Morales who presented to the [facility] emergency room after taking about 30-50 pills of Tylenol PM in an apparent suicidal attempt, patient was evaluated in the emergency room she had elevated acetaminophen level at 143, she was started on Acetylcysteine IV and was admitted to telemetry floor for further evaluation. Liver enzymes were elevated on presentation at 152 and 95, patient also admits to drinking alcohol, family at bedside also states that she has used drugs in the past, urine toxicology testing was positive only for acetaminophen. Patient was also started on the CIWA protocol she is being monitored on telemetry. Psychiatry consultation has been requested, patient is threatening to leave the hospital, family are requesting that she would be petitioned so she wouldn't have to stay and finished treatment. Patient has a known history of hepatitis C also history of peptic ulcer disease requiring surgery 2 years ago also there is a history of laser treatment to the right lower extremity for varicose vein patient states that she has chronic pain in her right lower extremity. Patient also has known history of asthma, GERD, and osteoarthritis. Patient was given Acetylcysteine IV her Tylenol level has come down to 10. She was seen by Dr. Michele for critical care. She is also seen by psychiatry. Patient is a candidate for inpatient psychiatric care. Patient is cleared medically for discharge. Her LFTs are trending downwards. Please refer to chart for any further details. I performed an examination of the patient and discussed their management with the physician Electric Accounting Machine Operator. I have reviewed the Physician Electric Accounting Machine Operator's notes and agree with the documented findings and plan of care Patient Condition at Discharge: Stable Plan - Discharge Summary Discharge Rx Participant: No New Discharge Prescriptions: New Multivitamins, Thera [Multivitamin (formulary)] 1 each PO DAILY@1200 tab Nicotine 14Mg/24Hr Patch [Habitrol] 1 patch TRANSDERM DAILY patch Thiamine [Vitamin B-1] 100 mg PO DAILY tab Continue Albuterol Inhaler [Ventolin Hfa Inhaler] 1 - 2 puff INHALATION RT-Q6H PRN PRN Reason: sob Potassium Chloride [K-Tab ER] 10 meq PO DAILY Pantoprazole Sodium [Protonix] 40 mg PO DAILY Cholecalciferol (Vitamin D3) [Vitamin D3] 50,000 unit PO FR Ibuprofen [Motrin] 800 mg PO QID PRN PRN Reason: Pain Folic Acid 1 mg PO DAILY Fluticasone/Salmeterol [Advair 250-50 Diskus] 1 puff INHALATION RT-BID Discontinued Acetaminophen/Diphenhydramine [Tylenol PM 500-25mg] 1 tab PO HS PRN PRN Reason: Insomnia Hydrocodone/Acetaminophen [Greer 7.5-325] 1 tab PO DAILY PRN PRN Reason: Pain Discharge Medication List Albuterol Inhaler [Ventolin Hfa Inhaler] 1 - 2 puff INHALATION RT-Q6H PRN [History] Cholecalciferol (Vitamin D3) [Vitamin D3] 50,000 unit PO FR 07/11/15 [History] Pantoprazole Sodium [Protonix] 40 mg PO DAILY 07/11/15 [History] Potassium Chloride [K-Tab ER] 10 meq PO DAILY 07/11/15 [History] Fluticasone/Salmeterol [Advair 250-50 Diskus] 1 puff INHALATION RT-BID 01/24/17 [History] Folic Acid 1 mg PO DAILY 01/24/17 [History] Ibuprofen [Motrin] 800 mg PO QID PRN 01/24/17 [History] Multivitamins, Thera [Multivitamin (formulary)] 1 each PO DAILY@1200 tab [Rx] Nicotine 14Mg/24Hr Patch [Habitrol] 1 patch TRANSDERM DAILY patch 01/24/17 [Rx] Thiamine [Vitamin B-1] 100 mg PO DAILY tab 01/24/17 [Rx] Follow up Appointment(s)/Referral(s): Car Morales MD [Primary Care Provider] - 1 Week Activity/Diet/Wound Care/Special Instructions: patient is medically stable to discharge to inpatient psych unit Discharge Disposition: TRANSFER TO PSYCH HOSP/UNIT
[2017-01-24] MEDS: LORazepam 2 MG/ML INJ IV PRN (14:56)
[2017-01-24 16:09] VITALS: BP 159/87; PULSE 88
--- NOTE | 2017-01-24 16:54 | P.PN ---
Subjective Progress Note Date: 01/24/17 Principal diagnosis: Tylenol overdose 61-year-old female with a history of ingesting somewhere between 20-48 pills of Tylenol PM. The Tylenol containing 500 mg of acetaminophen. This would clearly be a toxic relief of dose of Tylenol if in fact she took this much. Her top her Tylenol levels are very high. Currently she is doing reasonably well on the floor in room 680. She was started on IV N-acetylcysteine. I did ask for a repeat of her labs including a CBC compress a metabolic profile amylase lipase and also a ammonia level. The patient does have a history of COPD. She is a smoker. Does drink quite a bit of a day. May be 2 or 3 large beers a day she tells us. She states this was not a suicide attempt but some of her family members believe that it was because her and her boyfriend/ argue all the time. In addition, she takes some vitamin D and Protonix for her stomach. She does have a history of acid reflux disease and COPD/asthma. She has a history of arthritis and apparently sees Dr. Zaldivar for elevated liver enzymes. I suspect it might relate to nonalcoholic steatohepatitis or alcoholic liver disease. I was asked to see her by Dr. Ordonez. On 01/24/2017 patient seen in follow-up on selective care for her. She is awake , alert, oriented 3. In no acute distress. She is sitting up in bed, with her boyfriend, watching TV. She does admit that she took the Tylenol intentionally, appears to be in a good mood, cooperative, in no acute distress, no neurologic deficits. Lung sounds are clear to auscultation, no rhonchi, no wheezes noted. Her Tylenol level on 01/23/2017 was less than 10, days labwork shows creatinine of 0.51, B1 of 8, sodium of 141, potassium 3.7, chloride is 112 , carbon dioxide is 21. AST is 93 down from 105 on 01/23/2017, alkaline phosphatase is down to 68 from yesterday. From pulmonary standpoint patient is clear for discharge to the psychiatric unit for further treatment. Objective - Vital Signs Vital signs: Vital Signs Temp 97 F L 01/24/17 12:00 Pulse 88 01/24/17 16:00 Resp 18 01/24/17 16:00 BP 159/87 01/24/17 16:00 Pulse Ox 98 01/24/17 16:00 Intake & Output 01/23/17 01/24/17 01/24/17 18:59 06:59 18:59 Intake Total 850 600 780 Balance 850 600 780 Weight 69.2 kg 69.2 kg Intake: Intake, IV Titration 850 600 600 Amount Sodium Chloride 0.9% 1, 850 600 600 000 ml @ 75 mls/hr IV . [id number] [facility] Rx#:[id number] Oral 180 Other: Voiding Method Bedside Commode Bedside Commode - Exam No acute distress, oriented 3. HEENT examination is grossly unremarkable. Mucous membranes are moist. No oral lesions. Neck supple. Full range of motion. No adenopathy thyromegaly or neck vein distention. Cardiovascular examination reveals regular rhythm rate. S1-S2 normal. No S3 or S4. No discernible murmur noted. Lungs reveal a few scattered rhonchi. No wheezes or crackles. Abdomen soft bowel sounds are heard. No masses or tenderness. Extremities are intact. No cyanosis clubbing or edema. Skin is without rash or lesion. Neurologic examination is brief but nonfocal. - Labs CBC & Chem 7: 01/24/17 05:19 01/24/17 05:19 Labs: Abnormal Lab Results - Last 24 Hours (Table) 01/24/17 01/24/17 Range/Units 05:19 05:19 WBC 3.4 L (3.8-10.6) k/uL RBC 3.78 L (3.80-5.40) m/uL Plt Count 101 L (150-450) k/uL Chloride 112 H (98-107) mmol/L Carbon Dioxide 21 L (22-30) mmol/L Creatinine 0.51 L (0.52-1.04) mg/dL Glucose 104 H (74-99) mg/dL AST 93 H (14-36) U/L ALT 68 H (9-52) U/L Albumin 3.1 L (3.5-5.0) g/dL Assessment and Plan Plan: Assessment: #1. Suicide attempt with acetaminophen overdose #2. Steatohepatitis, alcoholic #3. Chronic alcohol abuse #4. Chronic nicotine abuse #5. Chronic COPD, without evidence of acute exacerbation #6. Arthritis Plan: The Tylenol levels are down to normal on 01/23/2017 less than 10. Liver enzymes are trending down. AST is at 93, with ALT at 68, ammonia is at 75, total bilirubin is at 0.5. Patient is awake, alert, with no neurological deficits. Hemodynamically stable. Patient is cleared from pulmonary standpoint for discharge to psychiatric [facility] for further treatment. I performed a history & physical examination of the patient and discussed their management with my nurse practitioner, Georgette Gaming. I reviewed the nurse practitioner's note and agree with the documented findings and plan of care. Lung sounds are clear. Findings and the impression was discussed with the patient. I attest to the documentation by the nurse practitioner. Time with Patient: Less than 30
[2017-01-24] MEDS ORDERED: SYMBICORT 160-4.5 MCG INHALER INHALATION SCH (20:00)
== END 2017-01-24 16:53 | disposition still patient (30) | DRG 812 ==
LOC: EC 03:56 → 6SEL 04:09
PROVIDERS: ADMIT Internal Medicine; ATTEND Internal Medicine
DX: T39.1X2A Poisoning by 4-Aminophenol derivatives, intentional self-harm, initial encounter (principal); K70.10 Alcoholic hepatitis without ascites; F32.9 Major depressive disorder, single episode, unspecified; F41.9 Anxiety disorder, unspecified; F17.200 Nicotine dependence, unspecified, uncomplicated; K21.9 Gastro-esophageal reflux disease without esophagitis; M19.90 Unspecified osteoarthritis, unspecified site; F90.9 Attention-deficit hyperactivity disorder, unspecified type; J44.9 Chronic obstructive pulmonary disease, unspecified; G89.29 Other chronic pain; F10.10 Alcohol abuse, uncomplicated; Z88.8 Allergy status to other drugs, medicaments and biological substances; Z80.41 Family history of malignant neoplasm of ovary; Z86.19 Personal history of other infectious and parasitic diseases; Z79.899 Other long term (current) drug therapy; Z87.11 Personal history of peptic ulcer disease; Z79.891 Long term (current) use of opiate analgesic; Z98.51 Tubal ligation status
CPT/HCPCS: 36415; 80053; 80306; 80320; 81003; 81025; 82075; 82140; 82150; 82550; 82553; 83520; 83690; 85025; 85610; 96365; 96366; 99285

== ENCOUNTER → 2017-03-11 | Day surgery (SDC) | payer OTHER ==
[2017-03-09 23:23] VITALS: BMI 25.8
[~2017-03-11] MED LIST: GLYCOPYRROLATE 0.2 MG/ML 2 ML VIAL ONE; LACTATED RINGERS 1,000 ML IV SCH; LIDOCAINE 1% 20 ML VIAL (10MG/ML) FOR IV START INTRADERMA PRN; LIDOCAINE 1% INJ 10MG/ML (20 ML MDV) ONE; PROPOFOL 10 MG/ML 20 ML VIAL IV ONE; fentaNYL (PF) 50 MCG/ML 2 ML AMP ONE
[2017-03-11 10:53] VITALS: TEMP 98.9
--- NOTE | 2017-03-11 12:47 | P.GSHP ---
History of Present Illness H&P Date: 03/11/17 Chief Complaint: Gastritis, peptic ulcer disease Is a 61-year-old female with history of gastritis and peptic ulcer disease with perforated gastric ulcer. Patient's had complaints of epigastric pain. She presents today for EGD. Past Medical History Past Medical History: Asthma, GERD/Reflux, Liver Disease, Osteoarthritis (OA) Additional Past Medical History / Comment(s): ELEVATED LIVER ENZYMES., HX OF PERFORATED STOMACH ULCER., sister states patient has HEPATITIS C, epigastric pain, recent admission for taking too much tylenol pm per pt. History of Any Multi-Drug Resistant Organisms: None Reported Past Surgical History: Hernia Repair, Tubal Ligation Additional Past Surgical History / Comment(s): PLASTIC SURGERY TO FOREHEAD, PERFORATED STOMACH ULCER. laser surgery to right leg for varicose veins Past Anesthesia/Blood Transfusion Reactions: No Reported Reaction Past Psychological History: ADD/ADHD, Anxiety, Depression Additional Psychological History / Comment(s): per sister has been very depressed for years, but has never taken medication for depression. Smoking Status: Current every day smoker Past Alcohol Use History: Rare Additional Past Alcohol Use History / Comment(s): STARTED SMOKING AT AGE 13 per sister, SMOKING NOW 1/2 PPD at least, is a heavy smoker and chain smokes when able. SMOKING FOR 48 YEARS. 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 Also known to smoke crack in October/November 2016. Sister believes that she is not using anything at this time. - Past Family History Mother Family Medical History: Cancer Additional Family Medical History / Comment(s): OVARIAN CA Father History Unknown: Yes Additional Family Medical History / Comment(s): father when patient was very young (2 year old), he of a gunshot wound outside of a bar at the age of 23 Medications and Allergies Home Medications Medication Instructions Recorded Confirmed Type Albuterol Inhaler [Ventolin Hfa 1 - 2 puff INHALATION RT-Q6H PRN 03/12/14 History Inhaler] Cholecalciferol (Vitamin D3) 50,000 unit PO FR 07/11/15 03/09/17 History [Vitamin D3] Pantoprazole Sodium [Protonix] 40 mg PO DAILY 07/11/15 03/09/17 History Potassium Chloride [K-Tab ER] 10 meq PO DAILY 07/11/15 03/09/17 History Fluticasone/Salmeterol [Advair 1 puff INHALATION RT-BID 01/24/17 03/09/17 History 250-50 Diskus] Folic Acid 1 mg PO DAILY 01/24/17 03/09/17 History Ibuprofen [Motrin] 800 mg PO QID PRN 01/24/17 03/09/17 History traZODone HCL [Desyrel] 50 mg PO HS #30 tab 01/27/17 03/09/17 Rx Nicotine 14Mg/24Hr Patch [Habitrol] 1 patch TRANSDERM DAILY PRN 02/17/17 History traMADol HCL [Ultram] 50 mg PO Q6HR PRN 02/17/17 03/09/17 History Escitalopram [Lexapro] 5 mg PO QAM 03/09/17 03/09/17 History Allergies Allergy/AdvReac Type Severity Reaction Status Date / Time methylphenidate Allergy Anaphylaxis-see Verified 03/09/17 09:55 [From Ritalin] comment Surgical - Exam Vital Signs Temp Pulse Resp BP Pulse Ox 98.9 F 70 18 110/77 97 03/11/17 10:50 03/11/17 10:50 03/11/17 10:50 03/11/17 10:50 03/11/17 10:50 - General well developed, no distress - Eyes PERRL - ENT normal pinna - Neck no masses - Respiratory normal expansion - Cardiovascular Rhythm: regular - Abdomen Abdomen: soft, non tender Assessment and Plan Assessment: Epigastric pain with history of peptic ulcer disease. We'll perform EGD.
--- NOTE | 2017-03-11 12:56 | P.OP ---
Date of Procedure: 03/11/17 Preoperative Diagnosis: Gastritis History of peptic ulcer disease Postoperative Diagnosis: Antral gastritis Procedure(s) Performed: EGD Anesthesia: MAC Surgeon: Renato Bhatt Pathology: other (Antrum, esophagus) Condition: stable Disposition: PACU Description of Procedure: Patient's placed on the endoscopy table in the lateral position. She received IV sedation. The gastroscope placed oropharynx passed in the esophagus and into the stomach. Scope was then placed through the pylorus. The first and second portion of the duodenum appeared normal. Scope was then brought back and the antrum and this was mildly inflamed. There is no significant gastric ulceration seen. A biopsies was performed. The scope was unretroflexed and remainder stomach appeared normal. The GE junction was at 40 cm. There is no significant hiatal hernia. The distal esophagusAppeared Normal the proximal esophagus. Normal. Scope was withdrawn for patient.
[2017-03-11 13:08] VITALS: RESP 16
[2017-03-11 13:22] VITALS: BP 121/72; PULSE 94
== END | disposition home or self-care (01) ==
LOC: ORWHC2ENDO 09:51
PROVIDERS: ATTEND Surgery
DX: K29.50 Unspecified chronic gastritis without bleeding (principal); K21.9 Gastro-esophageal reflux disease without esophagitis; J45.909 Unspecified asthma, uncomplicated; M19.90 Unspecified osteoarthritis, unspecified site; F90.9 Attention-deficit hyperactivity disorder, unspecified type; F41.9 Anxiety disorder, unspecified; F32.9 Major depressive disorder, single episode, unspecified; F17.200 Nicotine dependence, unspecified, uncomplicated; Z88.8 Allergy status to other drugs, medicaments and biological substances; Z79.51 Long term (current) use of inhaled steroids; Z79.899 Other long term (current) drug therapy; Z87.11 Personal history of peptic ulcer disease; Z87.19 Personal history of other diseases of the digestive system; Z80.41 Family history of malignant neoplasm of ovary
CPT/HCPCS: 43239; 88305; 88342; J2001; J3010; J2704

== ENCOUNTER → 2017-06-13 | Outpatient (CLI) | payer OTHER ==
[2017-06-13 11:48] LABS: Basophils % (A) 1 %; Eosinophils # (A) 0.1 k/uL (0-0.7); Eosinophils % (A) 2 %; HCT 41.1 % (34.0-46.0); HGB 13.3 gm/dL (11.4-16.0); Lymphocytes # (A) 2.8 k/uL (1.0-4.8); Lymphocytes % (A) 47 %; MCH 29.1 pg (25.0-35.0); MCHC 32.3 g/dL (31.0-37.0); Mean Platelet Volume 7.8; Monocytes # (A) 0.3 k/uL (0-1.0); Monocytes % (A) 4 %; Neutrophils # (A) 2.7 k/uL (1.3-7.7); Neutrophils % (A) 45 %; Platelet Count 129 k/uL (150-450); RBC 4.56 m/uL (3.80-5.40); RDW 13.5 % (11.5-15.5)
[2017-06-13 11:58] LABS: ALT 68 U/L (9-52); AST 89 U/L (14-36); Albumin 4.1 g/dL (3.5-5.0); Alkaline Phosphatase 80 U/L (38-126); Anion Gap 10 mmol/L; Bilirubin, Delta 0.4 mg/dL (0.0-0.2); Bilirubin,Unconjugated 0.2 mg/dL (0.0-1.1); Blood Urea Nitrogen 12 mg/dL (7-17); Calcium 9.3 mg/dL (8.4-10.2); Carbon Dioxide 27 mmol/L (22-30); Chloride 103 mmol/L (98-107); Glucose 85 mg/dL (74-99); Potassium 4.4 mmol/L (3.5-5.1); Sodium 140 mmol/L (137-145); Total Bilirubin 0.6 mg/dL (0.2-1.3); Total Protein 7.9 g/dL (6.3-8.2)
[2017-06-13 12:16] LABS: T4, Free (Free Thyroxine) 0.85 ng/dL (0.78-2.19)
== END | disposition home or self-care (01) ==
LOC: LABWHC1 11:23
DX: Z51.81 Encounter for therapeutic drug level monitoring (principal)
CPT/HCPCS: 36415; 80053; 82248; 82306; 84439; 84443; 85025

== ENCOUNTER 2017-12-04 12:50 | Emergency (ER) | payer OTHER ==
[2017-12-04 12:59] VITALS: BP 143/86; PULSE 105; RESP 16; TEMP 98.5
--- NOTE | 2017-12-04 13:29 | ED ---
General Adult HPI - General Chief complaint: ENT Stated complaint: Throat pain Time Seen by Provider: 12/04/17 13:15 Source: patient, RN notes reviewed, old records reviewed Mode of arrival: ambulatory Limitations: no limitations - History of Present Illness Initial comments: 62-year-old female presents for evaluation of nasal congestion, sore throat, and left ear pain. Patient's symptoms 7 present for the past 3 days. Initially began as a sore throat, she develop a mild cough which is nonproductive. No chest pain or dyspnea. No nausea vomiting or diarrhea. No fever or chills. Patient has past medical history of asthma currently on Advair and albuterol. Patient states she has had injury to her left ear in the past and has had a ruptured left uterine trauma. She reports a fullness in the severe which is new with her symptoms of sore throat and nasal congestion. - Related Data Home Medications Medication Instructions Recorded Confirmed Albuterol Inhaler [Ventolin Hfa 1 - 2 puff INHALATION RT-Q6H PRN 03/12/14 Inhaler] Cholecalciferol (Vitamin D3) 50,000 unit PO FR 07/11/15 03/09/17 [Vitamin D3] Pantoprazole Sodium [Protonix] 40 mg PO DAILY 07/11/15 03/09/17 Potassium Chloride [K-Tab ER] 10 meq PO DAILY 07/11/15 03/09/17 Fluticasone/Salmeterol [Advair 1 puff INHALATION RT-BID 01/24/17 03/09/17 250-50 Diskus] Folic Acid 1 mg PO DAILY 01/24/17 03/09/17 Ibuprofen [Motrin] 800 mg PO QID PRN 01/24/17 03/09/17 Nicotine 14Mg/24Hr Patch [Habitrol] 1 patch TRANSDERM DAILY PRN 02/17/17 traMADol HCL [Ultram] 50 mg PO Q6HR PRN 02/17/17 03/09/17 Escitalopram [Lexapro] 5 mg PO QAM 03/09/17 03/09/17 Previous Rx's Medication Instructions Recorded traZODone HCL [Desyrel] 50 mg PO HS #30 tab 01/27/17 Amoxicillin/Potassium Clav 1 tab PO Q12HR #20 tab 12/04/17 [Augmentin 875-125 Tablet] Loratadine [Claritin] 10 mg PO DAILY #30 tab 12/04/17 Review of Systems ROS Statement: Those systems with pertinent positive or pertinent negative responses have been documented in the HPI. ROS Other: All systems not noted in ROS Statement are negative. Past Medical History Past Medical History: Asthma, GERD/Reflux, Liver Disease, Osteoarthritis (OA) Additional Past Medical History / Comment(s): ELEVATED LIVER ENZYMES., HX OF PERFORATED STOMACH ULCER., sister states patient has HEPATITIS C, epigastric pain, recent admission for taking too much tylenol pm per pt. History of Any Multi-Drug Resistant Organisms: None Reported Past Surgical History: Hernia Repair, Tubal Ligation Additional Past Surgical History / Comment(s): PLASTIC SURGERY TO FOREHEAD, PERFORATED STOMACH ULCER. laser surgery to right leg for varicose veins Past Anesthesia/Blood Transfusion Reactions: No Reported Reaction Past Psychological History: ADD/ADHD, Anxiety, Depression Smoking Status: Current every day smoker Past Alcohol Use History: Rare Past Drug Use History: Unable to Obtain - Past Family History Mother Family Medical History: Cancer Additional Family Medical History / Comment(s): OVARIAN CA Father History Unknown: Yes Additional Family Medical History / Comment(s): father when patient was very young (2 year old), he of a gunshot wound outside of a bar at the age of 23 General Exam Limitations: no limitations General appearance: alert, in no apparent distress Head exam: Present: atraumatic, normocephalic Eye exam: Present: normal appearance. Absent: conjunctival injection, periorbital swelling, periorbital tenderness ENT exam: Present: normal external ear exam, other (There is pharyngeal erythema , no exudate. Left TM is bulging, there is scar tissue on the superior aspect of the tympanic membrane.) Neck exam: Present: normal inspection, full ROM. Absent: tenderness, meningismus Respiratory exam: Present: normal lung sounds bilaterally. Absent: respiratory distress, wheezes Cardiovascular Exam: Present: regular rate, normal rhythm GI/Abdominal exam: Present: soft. Absent: distended, tenderness, guarding Extremities exam: Present: normal inspection, normal capillary refill Neurological exam: Present: alert, oriented X3 Psychiatric exam: Present: normal affect, normal mood Course Vital Signs 12/04/17 12:56 Temperature 98.5 F Pulse Rate 105 H Respiratory 16 Rate Blood Pressure 143/86 O2 Sat by Pulse 98 Oximetry Medical Decision Making - Medical Decision Making 62-year-old female with signs and symptoms consistent with URI. On exam she does have a bulging and erythematous left tympanic membrane. There appears to be some scar tissue on this tympanic membrane as well. She has some pharyngeal erythema and nasal congestion. She will be started on Augmentin, Claritin, she will follow-up with her primary care physician for reevaluation. She may require ENT follow-up given the abnormal tympanic membrane. She will return with worsening or changing symptoms. She will return with development of fever. Disposition Clinical Impression: Otitis media Disposition: HOME SELF-CARE Condition: Good Instructions: Earache (ED), Ear Infection (ED) Prescriptions: Amoxicillin/Potassium Clav [Augmentin 875-125 Tablet] 1 tab PO Q12HR #20 tab Loratadine [Claritin] 10 mg PO DAILY #30 tab Is patient prescribed a controlled substance at d/c from ED?: No Referrals: Azul Ordonez MD [Primary Care Provider] - 1-2 days Time of Disposition: 13:29
== END 2017-12-04 13:36 | disposition home or self-care (01) ==
LOC: EC 12:50
DX: H66.92 Otitis media, unspecified, left ear (principal); R05 Cough; R09.81 Nasal congestion; J45.909 Unspecified asthma, uncomplicated; K21.9 Gastro-esophageal reflux disease without esophagitis; F32.9 Major depressive disorder, single episode, unspecified; F41.9 Anxiety disorder, unspecified; F90.9 Attention-deficit hyperactivity disorder, unspecified type; F17.200 Nicotine dependence, unspecified, uncomplicated; Z86.19 Personal history of other infectious and parasitic diseases; Z79.51 Long term (current) use of inhaled steroids; Z79.899 Other long term (current) drug therapy; Z88.0 Allergy status to penicillin; Z88.5 Allergy status to narcotic agent
CPT/HCPCS: 99283

== ENCOUNTER 2018-07-20 19:05 | Emergency (ER) | payer OTHER ==
--- NOTE | 2018-07-20 20:38 | ED ---
General Adult HPI - General Chief complaint: Fever Stated complaint: fever, chills, cough Time Seen by Provider: 07/20/18 20:01 Source: patient Mode of arrival: ambulatory Limitations: no limitations - History of Present Illness Initial comments: Dictation was produced using [employer] dictation software. please excuse any grammatical, word or spelling errors. Chief Complaint: 62-year-old female past medical history of asthma, GERD, liver disease presents with fever and constitutional symptoms. History of Present Illness: 62-year-old female with multiple comorbidities presents with constitutional symptoms 2 days. Patient states her symptoms started yesterday. She reports that she has a mild cough with some slight pl euritic chest discomfort. No nausea vomiting diarrhea. No neck pain. No headache. Patient also reports body aches. The ROS documented in this emergency department record has been reviewed and co nfirmed by me. Those systems with pertinent positive or negative responses have been documented in the HPI. All other systems are other negative and/or noncontributory. PHYSICAL EXAM: General Impression: Alert and oriented x3, not in acute distress HEENT: Normocephalic atraumatic, extra-ocular movements intact, pupils equal and reactive to light bilaterally, mucous membranes moist. Cardiovascular: Heart regular rate and rhythm, S1&S2 audible, no murmurs, rubs or gallops Chest: Lungs clear to auscultation bilaterally, no rhonchi, no wheeze, no rales Abdomen: Bowel sounds present, abdomen soft, non-tender, non-distended, no organomegaly Musculoskeletal: Pulses present and equal in all extremities, no peripheral edema Motor: no focal deficits noted Neurological: CN II-XII grossly intact, no focal motor or sensory deficits noted Skin: Intact with no visualized rashes Psych: Normal affect and mood ED course: 62-year-old female presents chief complaint constitutional symptoms. Vital signs upon arrival are within acceptable limits. She has mild tachycardia over 107.Laboratory evaluation obtained. Leukocytosis of 19.1, platelets 113, sodium 132, urinalysis negative for UTI. Influenza and rapid strep test negative. Chest x-ray is positive for bilateral pneumonia. patient is a current smoker she is told to quit smoking. Discussed with patient that recommend that she be admitted due to multilobar pneumonia however she is adamant about outpatient management. Patient given prescription for azithromycin and 1 dose prior to discharge. Return parameters discussed. Patient lives at home with a roommate. She does have good transportation to the emergency department if need be. She does have a trustworthy primary care physician. Splint believe this is reasonable disposition given that patient is well-appearing and stable vital signs. She is understandable agreeable to plan. She understands the risk of being discharged that she could possibly get more sick and will return if she gets worse. EKG interpretation: Ventricular rate 93, normal sinus rhythm,. Interval 150, QS 90, QTC 452. No NC prolongation, no QTC prolongation, no ST or T-wave changes noted. Overall, this EKG is unremarkable - Related Data Home Medications Medication Instructions Recorded Confirmed Albuterol Inhaler [Ventolin Hfa 1 - 2 puff INHALATION RT-Q6H PRN 03/12/14 07/20/18 Inhaler] Cholecalciferol (Vitamin D3) 50,000 unit PO FR 07/11/15 07/20/18 [Vitamin D3] Fluticasone/Salmeterol [Advair 1 puff INHALATION RT-BID 01/24/17 07/20/18 250-50 Diskus] Escitalopram [Lexapro] 10 mg PO DAILY 07/20/18 07/20/18 Naproxen Sodium [Aleve] 220 mg PO Q8H 07/20/18 07/20/18 buPROPion HCL [Wellbutrin XL] 300 mg PO DAILY 07/20/18 07/20/18 Previous Rx's Medication Instructions Recorded Azithromycin [Zithromax Z-pack] 0 mg PO DIRECTED #6 tab 07/20/18 Allergies Allergy/AdvReac Type Severity Reaction Status Date / Time No Known Allergies Allergy Verified 07/20/18 20:02 Review of Systems ROS Statement: Those systems with pertinent positive or pertinent negative responses have been documented in the HPI. ROS Other: All systems not noted in ROS Statement are negative. Past Medical History Past Medical History: Asthma, GERD/Reflux, Liver Disease, Osteoarthritis (OA) Additional Past Medical History / Comment(s): ELEVATED LIVER ENZYMES., HX OF PERFORATED STOMACH ULCER., sister states patient has HEPATITIS C, epigastric pain, recent admission for taking too much tylenol pm per pt. History of Any Multi-Drug Resistant Organisms: None Reported Past Surgical History: Hernia Repair, Tubal Ligation Additional Past Surgical History / Comment(s): PLASTIC SURGERY TO FOREHEAD, PERFORATED STOMACH ULCER. laser surgery to right leg for varicose veins Past Anesthesia/Blood Transfusion Reactions: No Reported Reaction Past Psychological History: ADD/ADHD, Anxiety, Depression Smoking Status: Current every day smoker Past Alcohol Use History: Daily Past Drug Use History: None Reported - Past Family History Mother Family Medical History: Cancer Additional Family Medical History / Comment(s): OVARIAN CA Father History Unknown: Yes Additional Family Medical History / Comment(s): father when patient was very young (2 year old), he of a gunshot wound outside of a bar at the age of 23 General Exam Limitations: no limitations Course Vital Signs 07/20/18 19:07 Temperature 99.6 F Pulse Rate 107 H Respiratory 18 Rate Blood Pressure 112/58 O2 Sat by Pulse 97 Oximetry Medical Decision Making - Lab Data Result diagrams: 07/20/18 20:42 07/20/18 20:42 Lab Results 07/20/18 07/20/18 07/20/18 Range/Units 20:42 20:42 20:42 WBC 19.1 H (3.8-10.6) k/uL RBC 4.20 (3.80-5.40) m/uL Hgb 13.0 (11.4-16.0) gm/dL Hct 39.0 (34.0-46.0) % MCV 92.8 (80.0-100.0) fL MCH 31.1 (25.0-35.0) pg MCHC 33.4 (31.0-37.0) g/dL RDW 13.5 (11.5-15.5) % Plt Count 113 L (150-450) k/uL Neutrophils % 82 % Lymphocytes % 9 % Monocytes % 6 % Eosinophils % 1 % Basophils % 0 % Neutrophils # 15.6 H (1.3-7.7) k/uL Lymphocytes # 1.8 (1.0-4.8) k/uL Monocytes # 1.2 H (0-1.0) k/uL Eosinophils # 0.1 (0-0.7) k/uL Basophils # 0.0 (0-0.2) k/uL Sodium 132 L (137-145) mmol/L Potassium 3.7 (3.5-5.1) mmol/L Chloride 101 (98-107) mmol/L Carbon Dioxide 22 (22-30) mmol/L Anion Gap 9 mmol/L BUN 14 (7-17) mg/dL Creatinine 0.55 (0.52-1.04) mg/dL Est GFR (CKD-EPI)AfAm >90 (>60 ml/min/1.73 sqM) Est GFR (CKD-EPI)NonAf >90 (>60 ml/min/1.73 sqM) Glucose 119 H (74-99) mg/dL Calcium 9.4 (8.4-10.2) mg/dL Urine Color Yellow Urine Appearance Cloudy H (Clear) Urine pH 5.5 (5.0-8.0) Ur Specific [place] 1.027 (1.001-1.035) Urine Protein 1+ H (Negative) Urine Glucose (UA) Negative (Negative) Urine Ketones Trace H (Negative) Urine Blood Small H (Negative) Urine Nitrite Negative (Negative) Urine Bilirubin 1+ H (Negative) Urine Urobilinogen 3.0 (<2.0) mg/dL Ur Leukocyte Esterase Negative (Negative) Urine RBC 1 (0-5) /hpf Urine WBC 2 (0-5) /hpf Ur Squamous Epith Cells 2 (0-4) /hpf Hyaline Casts 9 H (0-2) /lpf Urine Mucus Rare H (None) /hpf Influenza Type A RNA (Not Detectd) Influenza Type B (PCR) (Not Detectd) Group A Strep Rapid (Negative) 07/20/18 07/20/18 Range/Units 20:42 20:42 WBC (3.8-10.6) k/uL RBC (3.80-5.40) m/uL Hgb (11.4-16.0) gm/dL Hct (34.0-46.0) % MCV (80.0-100.0) fL MCH (25.0-35.0) pg MCHC (31.0-37.0) g/dL RDW (11.5-15.5) % Plt Count (150-450) k/uL Neutrophils % % Lymphocytes % % Monocytes % % Eosinophils % % Basophils % % Neutrophils # (1.3-7.7) k/uL Lymphocytes # (1.0-4.8) k/uL Monocytes # (0-1.0) k/uL Eosinophils # (0-0.7) k/uL Basophils # (0-0.2) k/uL Sodium (137-145) mmol/L Potassium (3.5-5.1) mmol/L Chloride (98-107) mmol/L Carbon Dioxide (22-30) mmol/L Anion Gap mmol/L BUN (7-17) mg/dL Creatinine (0.52-1.04) mg/dL Est GFR (CKD-EPI)AfAm (>60 ml/min/1.73 sqM) Est GFR (CKD-EPI)NonAf (>60 ml/min/1.73 sqM) Glucose (74-99) mg/dL Calcium (8.4-10.2) mg/dL Urine Color Urine Appearance (Clear) Urine pH (5.0-8.0) Ur Specific [place] (1.001-1.035) Urine Protein (Negative) Urine Glucose (UA) (Negative) Urine Ketones (Negative) Urine Blood (Negative) Urine Nitrite (Negative) Urine Bilirubin (Negative) Urine Urobilinogen (<2.0) mg/dL Ur Leukocyte Esterase (Negative) Urine RBC (0-5) /hpf Urine WBC (0-5) /hpf Ur Squamous Epith Cells (0-4) /hpf Hyaline Casts (0-2) /lpf Urine Mucus (None) /hpf Influenza Type A RNA Not Detected (Not Detectd) Influenza Type B (PCR) Not Detected (Not Detectd) Group A Strep Rapid Negative (Negative) Disposition Clinical Impression: Pneumonia Disposition: HOME SELF-CARE Condition: Good Instructions (If sedation given, give patient instructions): Fever in Adults (ED), Bacterial Pneumonia (ED) Prescriptions: Azithromycin [Zithromax Z-pack] 0 mg PO DIRECTED #6 tab Is patient prescribed a controlled substance at d/c from ED?: No Referrals: Azul Ordonez MD [Primary Care Provider] - 1-2 days Time of Disposition: 21:59
[2018-07-20 20:56] LABS: Basophils % (A) 0 %; Eosinophils # (A) 0.1 k/uL (0-0.7); Eosinophils % (A) 1 %; Lymphocytes # (A) 1.8 k/uL (1.0-4.8); Lymphocytes % (A) 9 %; MCH 31.1 pg (25.0-35.0); MCHC 33.4 g/dL (31.0-37.0); MCV 92.8 fL (80.0-100.0); Mean Platelet Volume 7.6; Monocytes # (A) 1.2 k/uL (0-1.0); Monocytes % (A) 6 %; Neutrophils # (A) 15.6 k/uL (1.3-7.7); Neutrophils % (A) 82 %; Platelet Count 113 k/uL (150-450); RDW 13.5 % (11.5-15.5); WBC 19.1 k/uL (3.8-10.6)
[2018-07-20 21:02] LABS: Appearance,Urine Cloudy (Clear); Bilirubin,Urine 1+ (Negative); Blood,Urine Small (Negative); Color,Urine Yellow; Glucose,Urine (UA) Negative (Negative); Hyaline Casts,Urine 9 /lpf (0-2); Ketones,Urine Trace (Negative); Leukocyte Esterase,Urine Negative (Negative); Mucus,Urine Rare /hpf; Nitrite,Urine Negative (Negative); PH, Urine 5.5 (5.0-8.0); Protein,Urine 1+ (Negative); RBC,Urine 1 /hpf (0-5); Specific Gravity,Urine 1.027 (1.001-1.035); Squamous Epithelial Cell,Urine 2 /hpf (0-4); WBC,Urine 2 /hpf (0-5)
[2018-07-20 21:11] LABS: Anion Gap 9 mmol/L; Blood Urea Nitrogen 14 mg/dL (7-17); Calcium 9.4 mg/dL (8.4-10.2); Carbon Dioxide 22 mmol/L (22-30); Chloride 101 mmol/L (98-107); Glucose 119 mg/dL (74-99); Potassium 3.7 mmol/L (3.5-5.1); Sodium 132 mmol/L (137-145)
--- NOTE | 2018-07-20 21:23 | XR ---
EXAMINATION TYPE: XR chest 2V DATE OF EXAM: 07/20/2018 COMPARISON: July 01, 2014 HISTORY: Fever and cough TECHNIQUE: Frontal and lateral views of the chest are obtained. FINDINGS: Heart and mediastinum are normal. There is some infiltrate left lower lobe and also in the lateral aspect right upper lobe adjacent to the major fissure. There is pleural thickening on the ri ght lateral chest wall. There is no pleural effusion. Bony thorax is intact. IMPRESSION: There is bilateral pneumonia that is new compared to old exam. Follow-up recommended to show clearing. Normal heart.
[2018-07-20] MEDS ORDERED: AZITHROMYCIN 500 MG TAB PO STA (21:56)
[2018-07-20 22:41] VITALS: BP 96/71; PULSE 90; RESP 20; TEMP 98.8
== END 2018-07-20 22:40 | disposition home or self-care (01) ==
LOC: EC 19:05
DX: J18.9 Pneumonia, unspecified organism (principal); R00.0 Tachycardia, unspecified; J45.909 Unspecified asthma, uncomplicated; F41.9 Anxiety disorder, unspecified; F32.9 Major depressive disorder, single episode, unspecified; F17.200 Nicotine dependence, unspecified, uncomplicated; Z79.51 Long term (current) use of inhaled steroids; Z79.1 Long term (current) use of non-steroidal anti-inflammatories (NSAID); Z79.899 Other long term (current) drug therapy
CPT/HCPCS: 36415; 71046; 80048; 81001; 85025; 87081; 87086; 87430; 87502; 99283

== ENCOUNTER 2019-04-02 20:10 | Emergency (ER) | payer OTHER ==
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
== END 2019-04-02 22:35 | disposition home or self-care (01) ==
LOC: EC 20:10
DX: S60.562A Insect bite (nonvenomous) of left hand, initial encounter (principal); S60.561A Insect bite (nonvenomous) of right hand, initial encounter; S50.862A Insect bite (nonvenomous) of left forearm, initial encounter; S50.861A Insect bite (nonvenomous) of right forearm, initial encounter; S10.96XA Insect bite of unspecified part of neck, initial encounter; S90.561A Insect bite (nonvenomous), right ankle, initial encounter; J45.909 Unspecified asthma, uncomplicated; M19.90 Unspecified osteoarthritis, unspecified site; F41.9 Anxiety disorder, unspecified; F32.9 Major depressive disorder, single episode, unspecified; F17.200 Nicotine dependence, unspecified, uncomplicated; Z79.51 Long term (current) use of inhaled steroids; Z79.1 Long term (current) use of non-steroidal anti-inflammatories (NSAID); Z79.899 Other long term (current) drug therapy; W57.XXXA Bitten or stung by nonvenomous insect and other nonvenomous arthropods, initial encounter
CPT/HCPCS: 99282

== ENCOUNTER 2021-08-23 21:34 | Inpatient (IN) | payer OTHER ==
[2021-08-23] MEDS ORDERED: SODIUM CHLORIDE 0.9% 1,000 ML IV STA (22:17)
[2021-08-23] MEDS ORDERED: VANCOMYCIN 1,000 MG in SODIUM CHLORIDE 0.9% 250 ML IVPB STA (22:19)
[2021-08-23] MEDS ORDERED: MORPHINE SULFATE 4 MG/ML SYRINGE IVP STA (22:30)
--- NOTE | 2021-08-23 23:12 | ED ---
Extremity Problem HPI - General Chief complaint: Extremity Problem,Nontraumatic Stated complaint: Right Hand Infection Time Seen by Provider: 08/23/21 21:59 Source: patient Mode of arrival: ambulatory Limitations: no limitations - History of Present Illness Initial comments: She is a 65-year-old female who presents to the emergency department for evaluat ion of right hand swelling and pain. Patient states symptoms started 4 days ago which she thought was due to banging her hand on a dresser however the swelling and pain continued to get worse. Patient states most of the pain is in her palm. States her fingers are stuck in a flexed position since yesterday with development of tingling today. Denies fever and chills. Denies history of MRSA. States she went to urgent care who sent her here. - Related Data Home Medications Medication Instructions Recorded Confirmed Albuterol Inhaler [Ventolin Hfa 1 - 2 puff INHALATION RT-Q6H PRN 03/12/14 07/20/18 Inhaler] Cholecalciferol (Vitamin D3) 50,000 unit PO FR 07/11/15 07/20/18 [Vitamin D3] Fluticasone Propion/Salmeterol 1 puff INHALATION RT-BID 01/24/17 07/20/18 [Advair 250-50 Diskus] Escitalopram [Lexapro] 10 mg PO DAILY 07/20/18 07/20/18 Naproxen Sodium [Aleve] 220 mg PO Q8H 07/20/18 07/20/18 buPROPion HCL [Wellbutrin XL] 300 mg PO DAILY 07/20/18 07/20/18 Previous Rx's Medication Instructions Recorded Azithromycin [Zithromax Z-pack] 0 mg PO DIRECTED #6 tab 07/20/18 Allergies Allergy/AdvReac Type Severity Reaction Status Date / Time No Known Allergies Allergy Verified 08/23/21 21:45 Review of Systems ROS Statement: Those systems with pertinent positive or pertinent negative responses have been documented in the HPI. ROS Other: All systems not noted in ROS Statement are negative. Past Medical History Past Medical History: Asthma, GERD/Reflux, Liver Disease, Osteoarthritis (OA) Additional Past Medical History / Comment(s): ELEVATED LIVER ENZYMES., HX OF PERFORATED STOMACH ULCER., sister states patient has HEPATITIS C, epigastric pain, recent admission for taking too much tylenol pm per pt. History of Any Multi-Drug Resistant Organisms: None Reported Past Surgical History: Hernia Repair, Tubal Ligation Additional Past Surgical History / Comment(s): PLASTIC SURGERY TO FOREHEAD, PERFORATED STOMACH ULCER. laser surgery to right leg for varicose veins Past Anesthesia/Blood Transfusion Reactions: No Reported Reaction Past Psychological History: ADD/ADHD, Anxiety, Depression Smoking Status: Current every day smoker Past Alcohol Use History: Daily Past Drug Use History: Marijuana - Past Family History Mother Family Medical History: Cancer Additional Family Medical History / Comment(s): OVARIAN CA Father History Unknown: Yes Additional Family Medical History / Comment(s): father when patient was very young (2 year old), he of a gunshot wound outside of a bar at the age of 23 General Exam Limitations: no limitations General appearance: alert Head exam: Present: atraumatic, normocephalic, normal inspection ENT exam: Present: normal exam, mucous membranes moist Respiratory exam: Present: normal lung sounds bilaterally. Absent: respiratory distress, wheezes, rales, rhonchi, stridor Cardiovascular Exam: Present: regular rate, normal rhythm, normal heart sounds. Absent: systolic murmur, diastolic murmur, rubs, gallop, clicks Extremities exam: Present: other (significant edema and erythema of right hand. edema most signifiant in dorsal hand. all digits resting in flexion. several abrasions over wrist/arm and 1 on dorsal hand. severe pain with passive extens ion of digits 2-4) Neurological exam: Present: alert, oriented X3, CN II-XII intact Psychiatric exam: Present: normal affect, normal mood Skin exam: Present: warm, dry, intact Course Vital Signs 08/23/21 21:43 Temperature 98 F Pulse Rate 90 Respiratory 18 Rate Blood Pressure 98/62 O2 Sat by Pulse 98 Oximetry Medical Decision Making - Medical Decision Making This is a 65-year-old female presenting for evaluation of right hand swelling and pain. Thorough history and examination were performed. Patient is afebrile. There is significant edema and erythema of the right hand. Edema most significant in dorsal hand. Erythema does travel into the wrist. Several abrasions over wrist/arm as well 1 on the dorsal hand that patient states is due to picking. All digits rest in flexion. There is notable pain with passive extension of digits 2-4. These digits do have tenderness along the course of the flexor tendons. Patient also has paresthesia of the right hand. Neurovascularly intact. Patient's symptoms raise some suspicion for flexor tenosynovitis. Blood cultures pending. Vancomycin initiated. I did speak with NORMAN Engel over the phone personally. At the very least patient will stay in the hospital for IV antibiotics. He recommended orthopedic and ID consult. Laboratory studies are relatively unremarkable. White blood cell count is normal at 5.9. Right hand xray is negative for fracture. Case discussed with Aria Ndiaye NP. Patient will be admitted to her service with ortho and ID consult. Results discussed with patient who verbalizes understand and is agreeable to this plan. Dr. Griffiths is my attending. - Lab Data Result diagrams: 08/23/21 22:38 08/23/21 22:38 Lab Results 08/23/21 08/23/21 08/23/21 Range/Units 22:38 22:38 22:38 WBC 5.9 (3.8-10.6) k/uL RBC 3.55 L (3.80-5.40) m/uL Hgb 11.3 L (11.4-16.0) gm/dL Hct 34.0 (34.0-46.0) % MCV 95.6 (80.0-100.0) fL MCH 31.7 (25.0-35.0) pg MCHC 33.2 (31.0-37.0) g/dL RDW 13.6 (11.5-15.5) % Plt Count 143 L (150-450) k/uL MPV 8.0 Neutrophils % 55 % Lymphocytes % 33 % Monocytes % 6 % Eosinophils % 1 % Basophils % 1 % Neutrophils # 3.3 (1.3-7.7) k/uL Lymphocytes # 1.9 (1.0-4.8) k/uL Monocytes # 0.4 (0-1.0) k/uL Eosinophils # 0.1 (0-0.7) k/uL Basophils # 0.1 (0-0.2) k/uL Sodium 142 (137-145) mmol/L Potassium 3.8 (3.5-5.1) mmol/L Chloride 109 H (98-107) mmol/L Carbon Dioxide 25 (22-30) mmol/L Anion Gap 8 mmol/L BUN 8 (7-17) mg/dL Creatinine 0.53 (0.52-1.04) mg/dL Est GFR (CKD-EPI)AfAm >90 (>60 ml/min/1.73 sqM) Est GFR (CKD-EPI)NonAf >90 (>60 ml/min/1.73 sqM) Glucose 95 (74-99) mg/dL Plasma Lactic Acid Al 1.2 (0.7-2.0) mmol/L Calcium 8.9 (8.4-10.2) mg/dL Total Bilirubin 0.3 (0.2-1.3) mg/dL AST 74 H (14-36) U/L ALT 41 H (4-34) U/L Alkaline Phosphatase 91 (38-126) U/L C-Reactive Protein 0.8 (<1.0) mg/dL Total Protein 7.6 (6.3-8.2) g/dL Albumin 4.0 (3.5-5.0) g/dL Disposition Clinical Impression: Cellulitis of hand, right, Injury of right hand Disposition: ADMITTED IP TO THIS [facility] Condition: Good Referrals: Danny Pedersen MD [Primary Care Provider] - 1-2 days Decision Time: 23:44
[2021-08-23 23:16] LABS: Basophils # (A) 0.1 k/uL (0-0.2); Basophils % (A) 1 %; Eosinophils # (A) 0.1 k/uL (0-0.7); Eosinophils % (A) 1 %; HGB 11.3 gm/dL (11.4-16.0); Lymphocytes # (A) 1.9 k/uL (1.0-4.8); Lymphocytes % (A) 33 %; MCH 31.7 pg (25.0-35.0); MCHC 33.2 g/dL (31.0-37.0); MCV 95.6 fL (80.0-100.0); Monocytes # (A) 0.4 k/uL (0-1.0); Monocytes % (A) 6 %; Neutrophils # (A) 3.3 k/uL (1.3-7.7); Neutrophils % (A) 55 %; Platelet Count 143 k/uL (150-450); RBC 3.55 m/uL (3.80-5.40); RDW 13.6 % (11.5-15.5); WBC 5.9 k/uL (3.8-10.6)
[2021-08-23] MEDS ORDERED: cefTRIAXone IN SWFI 1,000 MG/10 ML SYRINGE IVP STA (23:20)
[2021-08-23 23:25] LABS: ALT 41 U/L (4-34); AST 74 U/L (14-36); African American GFR (CKD) >90 (>60 ml/min/1.73 sqM); Alkaline Phosphatase 91 U/L (38-126); Anion Gap 8 mmol/L; Blood Urea Nitrogen 8 mg/dL (7-17); C Reactive Protein 0.8 mg/dL (<1.0); Calcium 8.9 mg/dL (8.4-10.2); Carbon Dioxide 25 mmol/L (22-30); Chloride 109 mmol/L (98-107); Glucose 95 mg/dL (74-99); Non-African American GFR(CKD) >90 (>60 ml/min/1.73 sqM); Potassium 3.8 mmol/L (3.5-5.1); Sodium 142 mmol/L (137-145); Total Bilirubin 0.3 mg/dL (0.2-1.3); Total Protein 7.6 g/dL (6.3-8.2)
--- NOTE | 2021-08-23 23:26 | XR ---
EXAMINATION TYPE: XR hand complete RT DATE OF EXAM: 08/23/2021 COMPARISON: NONE HISTORY: Pain TECHNIQUE: 3 views FINDINGS: There is soft tissue swelling on the dorsum of the hand. Metacarpals are intact. I see no f racture nor dislocation. Joint spaces are fairly normal. Carpal bones are intact. IMPRESSION: Soft tissue swelling. No fracture seen.
[2021-08-23] MEDS ORDERED: NALOXONE 0.4 MG/ML 1 ML VIAL IV PRN (23:44)
[2021-08-24 00:34] LABS: Erythrocyte Sedimentation Rate 42 mm/hr (0-20)
[2021-08-24] MEDS: MORPHINE SULFATE 4 MG/ML SYRINGE IV PRN ×5 (01:13→15:59)
[2021-08-24] MEDS: SODIUM CHLORIDE 0.9% 1,000 ML IV SCH ×4 (01:14→22:02)
[2021-08-24] MEDS ORDERED: VANCOMYCIN IV PER PHARMACY 1 EACH MISC MISCELLANE PRN (02:28)
[2021-08-24] MEDS ORDERED: QUEtiapine 25 MG TAB PO PRN (10:50)
[2021-08-24] MEDS: VANCOMYCIN 1,000 MG in SODIUM CHLORIDE 0.9% 250 ML IVPB SCH ×2 (11:37→22:01)
[2021-08-24] MEDS: PANTOPRAZOLE 40 MG/10 ML VIAL IVP SCH (11:37)
[2021-08-24] MEDS: ESCITALOPRAM 20 MG TAB PO SCH (11:46)
[2021-08-24 11:59] LABS: Amphetamine Screen,Urine Detected (NotDetected); Barbiturate Screen,Urine Not Detected (NotDetected); Benzodiazepines Screen,Urine Not Detected (NotDetected); Cocaine Screen,Urine Not Detected (NotDetected); Methadone Screen, Urine Not Detected (NotDetected); Opiate Screen,Urine Detected (NotDetected); Oxycodone Screen, Urine Not Detected (NotDetected); Phencyclidine Screen,Urine Not Detected (NotDetected); Tricyclic Antidepressant,Urine Not Detected (NotDetected); Urn Cannabinoid Scrn Detected (NotDetected)
--- NOTE | 2021-08-24 12:10 | P.HPIM ---
History of Present Illness H&P Date: 08/24/21 Chief Complaint: Right hand swelling and redness This is a pleasant 65-year-old female with past medical history of COPD, ongoing nicotine dependence alcohol abuse,gastroesophageal reflux disease, liver disease, hepatitis C, polysubstance abuse- methamphetamines,crack, cocaine osteoarthritis, generalized anxiety disorder, depression and multiple other medical issues presented to the ER with right hand swelling, redness and pain 4 days. Reports she hit her hand on her dresser, and proceeded to the urgent care who referred her to the emergency room. Blood cultures obtained, IV fluids and IV antibiotics of vancomycin, Rocephin initiated. Vancomycin has since been di scontinued . CT of the right hand ordered, pending. Afebrile, normal WBC, hemoglobin 11.3, platelets 143, renal function stable, electrolyte within normal limits, AST 74, ALT 41, CRP 0.8. Review of Systems ROS Statement: Those systems with pertinent positive or pertinent negative responses have been documented in the HPI. ROS Other: All systems not noted in ROS Statement are negative. Past Medical History Past Medical History: Asthma, GERD/Reflux, Liver Disease, Osteoarthritis (OA) Additional Past Medical History / Comment(s): ELEVATED LIVER ENZYMES., HX OF PERFORATED STOMACH ULCER., sister states patient has HEPATITIS C, epigastric pain, recent admission for taking too much tylenol pm per pt. History of Any Multi-Drug Resistant Organisms: None Reported Past Surgical History: Hernia Repair, Tubal Ligation Additional Past Surgical History / Comment(s): PLASTIC SURGERY TO FOREHEAD, PERFORATED STOMACH ULCER. laser surgery to right leg for varicose veins Past Anesthesia/Blood Transfusion Reactions: No Reported Reaction Past Psychological History: ADD/ADHD, Anxiety, Depression Additional Psychological History / Comment(s): per sister has been very depressed for years, but has never taken medication for depression. Smoking Status: Current every day smoker Past Alcohol Use History: Daily Additional Past Alcohol Use History / Comment(s): STARTED SMOKING AT AGE 13 per sister, SMOKING NOW 1/2 PPD at least, is a heavy smoker and chain smokes when able. SMOKING FOR 48 YEARS. Past Drug Use History: Marijuana Additional Drug Use History / Comment(s): patient used to use cocaine and meth in her 20's. Also known to smoke crack in October/November 2016. Sister believes that she is not using anything at this time. - Past Family History Mother Family Medical History: Cancer Additional Family Medical History / Comment(s): OVARIAN CA Father History Unknown: Yes Additional Family Medical History / Comment(s): father when patient was very young (2 year old), he of a gunshot wound outside of a bar at the age of 23 Medications and Allergies Home Medications Medication Instructions Recorded Confirmed Type Atorvastatin [Lipitor] 40 mg PO HS 08/24/21 08/24/21 History Clopidogrel [Plavix] 75 mg PO DAILY 08/24/21 08/24/21 History Cyanocobalamin (Vitamin B-12) 1,000 mcg PO DAILY 08/24/21 08/24/21 History [Vitamin B-12] Ergocalciferol [Vitamin D2 (1250 1,250 mcg PO TH 08/24/21 08/24/21 History Mcg = 97006 Iu)] Escitalopram [Lexapro] 20 mg PO DAILY 08/24/21 08/24/21 History QUEtiapine [SEROquel] 25 mg PO HS PRN 08/24/21 08/24/21 History rOPINIRole HCL [Requip] 1 mg PO HS 08/24/21 08/24/21 History Allergies Allergy/AdvReac Type Severity Reaction Status Date / Time No Known Allergies Allergy Verified 08/24/21 06:17 Physical Exam Vitals: Vital Signs Temp Pulse Pulse Resp BP BP Pulse Ox 08/24/21 07:42 97.9 F 76 18 140/79 98 08/24/21 05:09 86 16 123/78 98 08/24/21 00:02 82 16 127/79 98 08/23/21 21:43 98 F 90 18 98/62 98 Intake and Output 08/23/21 08/24/21 08/24/21 22:59 06:59 14:59 Other: Weight 58.967 kg 58.967 kg PHYSICAL EXAM: VITAL SIGNS: [As above] GENERAL: Sitting up in bed, no acute distress HEENT: Conjunctivae normal. eyes normal. MMM. NECK: Supple, No JVD. No LNs CARDIOVASCULAR: S1, S2 regular. No murmur RESPIRATION: Breath sounds diminished in the bases. No rhonchi or crackles. No bronchial breathing. ABDOMEN: Soft, nontender . No guarding. no masses palpable. No ascites, No hepatosplenomegaly.Bowel sounds heard. EXTREMITIES: Right hand redness, edema not extending beyond outlined area above the wrist, with an extremely tiny possible micro-puncture near knuckle between pinkie and 4th digit, able to flex and bend digits, positive radial pulse. Legs: No edema. no swelling PSYCHIATRY: Alert and oriented X3, mood and affect normal. NERVOUS SYSTEM: Cranial N 2-12 grossly normal. No focal deficits. Strength and sensation grossly intact. Skin: Warm and dry, no rash Results CBC & Chem 7: 08/23/21 22:38 08/23/21 22:38 Labs: Abnormal Lab Results - Last 24 Hours (Table) 08/23/21 08/23/21 Range/Units 22:38 22:38 RBC 3.55 L (3.80-5.40) m/uL Hgb 11.3 L (11.4-16.0) gm/dL Plt Count 143 L (150-450) k/uL ESR 42 H (0-20) mm/hr Chloride 109 H (98-107) mmol/L AST 74 H (14-36) U/L ALT 41 H (4-34) U/L Thrombosis Risk Factor Assmnt - Choose All That Apply Any of the Below Risk Factors Present?: No Other Risk Factors: Yes Each Risk Factor Represents 2 Points: Age 61-74 years Other congenital or acquired thrombophilia - If yes, enter type in comment: No Thrombosis Risk Factor Assessment Total Risk Factor Score: 2 Thrombosis Risk Factor Assessment Level: Low Risk Assessment and Plan Assessment: Right hand infection with cellulitis, possible spider bite, possible puncture wound Chronic COPD without acute exacerbation Chronic nicotine dependence Chronic alcohol abuse Chronic thrombocytopenia Steatosis, alcoholic Hepatitis C, history of Gastroesophageal reflux disease Marijuana use History of polysubstance abuse, cocaine, meth., crack Arthritis Generalized anxiety disorder Unspecified Depressive disorder, history of suicide attempt Plan: Continue on current medication regime ,monitoring and symptomatic treatment. CT of right hand pending. Drug screen pending. Maintain IV antibiotics, IV fluids. Blood cultures collected, pending. infectious disease consult in place. PPI added for GI prophylaxis. The impression and plan of care has been dictated as directed. : I performed a history and examination of this patient, discussed the same with the dictator. I agree with the dictator's note ,documented as a scribe. Any additional findings or plans will be noted.
--- NOTE | 2021-08-24 13:39 | CT ---
EXAMINATION TYPE: CT hand RT wo con DATE OF EXAM: 08/24/2021 COMPARISON: X-ray dated 08/23/2021 HISTORY: right hand pain, redness, swelling CT DLP: 178.1 mGycm Automated exposure control for dose reduction was used. TECHNIQUE: Multiplanar CT scan of the right hand and wrist without IV contrast administration. 3-D re construction images were generated on an independent workstation and reviewed. FINDINGS: Osteoarthritic changes of the fifth distal interphalangeal joint. No definite acute fracture line precious ntified. No other significant bony or articular abnormality is seen. Significant soft tissue swelling, fat stranding and reactive fluid seen along the dorsal aspect of th e hand and wrist. No definite soft tissue gas or abscess formation by this nonenhanced CT scan. IMPRESSION: Nonspecific soft tissue thickening along the dorsal aspect of the hand and wrist as detailed above. N o definite abscess formation or soft tissue gas by this nonenhanced CT scan. Underlying soft tissue i nfection cannot be excluded. No definite fracture line identified. Other findings as described above.
--- NOTE | 2021-08-24 16:12 | P.PN ---
Progress Note - Text Progress Note Date: 08/24/21 [facility] History and Physical Patient seen and examined, I reviewed the note, discussed the case with the NORMAN first hand and agree with the assessment and plan of NORMAN Engel. Please see my notes below for any additional recommendations. CC: Right hand swelling HPI: 65-year-old female with complaints of right hand swelling and redness over the past 3-4 days beginning worse so much so the emergency department with increased pain and swelling. States no numbness or tingling but that the pain shoots into her fingertips she has pain in her palm as well as the dorsum of her hand. She denies any numbness or tingling she denies any fevers chills shortness breath or chest pain she denies any injury she denies any open wounds at this time. The patient's past medical history; past surgical history; family history; medicines; allergies and social history have been reviewed and are as stated elsewhere in the chart. 14 points review of systems completed and as stated in HPI, all other systems reviewed are negative. PHYSICAL EXAM: Alert and oriented 3 appears well-nourished well-hydrated and is in no acute distress. She does not appear septic. Right upper extremity exam: On exam the patient has swelling about the right hand on the dorsum with erythema of the dorsum of the hand past the wrist. She also swelling of the palm of the hand. She is pain with passive motion of the fingers in extension however she has no tenderness to palpation of the flexor sheath in the fingers she has no fusiform swelling in the fingers however she does have tenderness of the palm of the hand as well as over the dorsum of the hand which are very swollen as well. Sensation is intact to pinprick and light touch in the C5 to T1 nerve distribution. She has palpable radial as well as ulnar pulses. Cap refill is brisk less than 2 seconds. There is no erythema in the palm of hand she has minor skin nicks of the forearm. No open wounds of the hand. Difficulty with motion of the PIP and DIP joints secondary to sweling but no pain in these joints. RADIOGRAPHS: CT and Xray reviewed. No fractures. Swelling in the ST about the dorsum of the hand as well as volar surface. No fluid collections seen in these films to suggest abscess. MRI would be better to visualize. ASSESSMENT: 1. Right hand cellulitis with possible developing horseshoe abscess 2. Complex medical history PLAN: - Stat MRI Right hand w/w/o contrast - Cont abx, recommend ID consult -Pain control as needed -NWB rue -NPO at [place] possible surgical intervention if not better tomorrow pending MRI findings. In our visit today * Clara and I have had a chance to go over my understanding of the patient's current condition, the natural course history without intervention and various interventional options. Questions were invited and answered, and the patient wishes to proceed as outlined above. Thank you again for your referral. Please do not hesitate to contact me if you have any further questions. Signed and authenticated by: Chriss [facility] [address] [place] [id number] This message is confidential, intended only for the named recipient(s) and may contain information that is privileged or exempt from disclosure under applicable law. If you are not the intended recipient(s), you are notified that the dissemination, distribution or copying of this information is strictly prohibited. If you received this message in error, please notify the sender then delete this message.
--- NOTE | 2021-08-24 16:18 | P.CNOR ---
History of Present Illness - [facility] Consult date: 08/24/21 Requesting physician: Keya Miranda Consult reason: other (severe right hand cellulitis with concern for flexor te nsoynovitis) History of present illness: patient is a 65-year-old female with a past medical history of COPD, alcohol abuse, GERD, liver disease, depression, polysubstance abuse, who presented to the emergency department yesterday and [facility] chief complaint of right hand swelling/pain. patient was seen at bedside this morning resting comfortably lying in semirecumbent position with her digits in her right hand in a flexed position. patient says about 4 days ago at home she hit her hand on the corner of a dresser. Patient denies having any open wounds/abrasions/brusing. Patient noticed increased redness on the dorsum of her hand and right wrist. She said over the past couple days she noticed increased swelling and warmth/redness extending into her palmar area and digits. Patient mentions she is not able to extend her digits in right hand without being in a lot of pain. Patient says she had carpal tunnel surgery on her right hand/wrist over 20 years ago. Patient denies any other previous orthopedic surgical history. Patient is currently on Vanco and received Rocephin in ER. ESR elevated at 42 and CRP WNL. Patient does not have fever. Patient also mentions that she picks at her skin a lot. There are multiple excoriations present on her upper extremities. patient denies chest pain, fever, shortness breath, nausea, vomiting, change in vision, loss of bowel/bladder control. Past Medical History Past Medical History: Asthma, GERD/Reflux, Liver Disease, Osteoarthritis (OA) Additional Past Medical History / Comment(s): ELEVATED LIVER ENZYMES., HX OF PERFORATED STOMACH ULCER., sister states patient has HEPATITIS C, epigastric pain, recent admission for taking too much tylenol pm per pt. History of Any Multi-Drug Resistant Organisms: None Reported Past Surgical History: Hernia Repair, Tubal Ligation Additional Past Surgical History / Comment(s): PLASTIC SURGERY TO FOREHEAD, PERFORATED STOMACH ULCER. laser surgery to right leg for varicose veins Past Anesthesia/Blood Transfusion Reactions: No Reported Reaction Past Psychological History: ADD/ADHD, Anxiety, Depression Additional Psychological History / Comment(s): per sister has been very depressed for years, but has never taken medication for depression. Smoking Status: Current every day smoker Past Alcohol Use History: Daily Additional Past Alcohol Use History / Comment(s): STARTED SMOKING AT AGE 13 per sister, SMOKING NOW 1/2 PPD at least, is a heavy smoker and chain smokes when able. SMOKING FOR 48 YEARS. Past Drug Use History: Marijuana Additional Drug Use History / Comment(s): patient used to use cocaine and meth in her 20's. Also known to smoke crack in October/November 2016. Sister believes that she is not using anything at this time. - Past Family History Mother Family Medical History: Cancer Additional Family Medical History / Comment(s): OVARIAN CA Father History Unknown: Yes Additional Family Medical History / Comment(s): father when patient was very young (2 year old), he of a gunshot wound outside of a bar at the age of 23 Medications and Allergies Home Medications Medication Instructions Recorded Confirmed Type Atorvastatin [Lipitor] 40 mg PO HS 08/24/21 08/24/21 History Clopidogrel [Plavix] 75 mg PO DAILY 08/24/21 08/24/21 History Cyanocobalamin (Vitamin B-12) 1,000 mcg PO DAILY 08/24/21 08/24/21 History [Vitamin B-12] Ergocalciferol [Vitamin D2 (1250 1,250 mcg PO TH 08/24/21 08/24/21 History Mcg = 65561 Iu)] Escitalopram [Lexapro] 20 mg PO DAILY 08/24/21 08/24/21 History QUEtiapine [SEROquel] 25 mg PO HS PRN 08/24/21 08/24/21 History rOPINIRole HCL [Requip] 1 mg PO HS 08/24/21 08/24/21 History Allergies Allergy/AdvReac Type Severity Reaction Status Date / Time No Known Allergies Allergy Verified 08/24/21 06:17 Physical Examination inspection: negative for any open fractures, ecchymosis, significant nodules. Positive for moderate swelling in the dorsum and palmar aspects of the right hand as well as digits in the right hand. positive for erythema along the dorsal right wrist and dorsum of the hand. Sensation: Is equal, symmetric, bilaterally intact throughout the upper and lower extremities Palpation: significant TTP along dorsum of right hand and palmar aspect near digits 2,3 4. NTTP throughout rest of exam ROM: Significantly limited/decreased ROM in right wrist and digits 2, 3, 4 in right hand due to pain and swelling. Patient holds all digits in rihgt hand in flexed position. FROM in bilateral LE and rest of RUE and all of LUE. 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 flexion/extension of right wrist 3/5 due to pain. 4+/5 in all other major motor groups Neurovascular: intact bilaterally. radial pulses 2+ bilaterally. cap refill <3 seconds in digits of upper extremities special tests: negative Homans bilaterally Results - Labs Labs: Abnormal Lab Results - Last 24 Hours (Table) 08/23/21 08/23/21 Range/Units 22:38 22:38 RBC 3.55 L (3.80-5.40) m/uL Hgb 11.3 L (11.4-16.0) gm/dL Plt Count 143 L (150-450) k/uL ESR 42 H (0-20) mm/hr Chloride 109 H (98-107) mmol/L AST 74 H (14-36) U/L ALT 41 H (4-34) U/L H & H 08/23/21 Range/Units 22:38 Hgb 11.3 L (11.4-16.0) gm/dL Hct 34.0 (34.0-46.0) % Result Diagrams: 08/23/21 22:38 08/23/21 22:38 Assessment and Plan Assessment: 1. right hand cellulitis 2. Multiple medical comorbidities Plan: 1. Right hand cellulitis - Patient stable at bedside this morning. XR right hand negative for any fractures/dislocations. CT right hand ordered for further evaluation. Patient to continue on antibiotics at this time. Pain meds as needed. NPO after midnight tonight. We will continue to follow while patient is in hospital 2. Appreciate medical and ID management 3. Pain management - [place]; Tylenol 4. DVT ppx - mechanical 5. GI ppx - Protonix 6. PT/OT recs Time with Patient: Less than 30
[2021-08-24] MEDS: ATORVASTATIN 40 MG TAB PO SCH (19:23)
[2021-08-24] MEDS: HYDROmorphone 0.5 MG/0.5 ML SYRINGE IVP PRN ×2 (19:29→23:29)
--- NOTE | 2021-08-24 23:07 | P.CONS ---
History of Present Illness - Reason for Consult Consult date: 08/24/21 Right hand cellulitis Requesting physician: Keya Miranda - Chief Complaint Right hand swelling and redness x 4 days - History of Present Illness Patient is a 65-year-old female with a past medical history difficult for COPD conservative leg disease depression who presented to the ER for evaluation of right hand swelling and pain patient apparently mention she did hit her head on the corner of her dresser about 4 days ago and since then the patient noticed to having increasing swelling and redness to the right hand area mostly at the wrist patient be complaining of pain which is sharp almost 10 out of 10 in severity with no radiation with associated swelling or redness currently do not have any open wound or any drainage patient on presentation to the hospital was afebrile and no fever have been recorded subsequently did have normal white count kidney function has been normal urine toxin was positive for opiates amphetamines methamphetamines and marijuana patient did have an x-ray of the hand soft tissue swelling no fracture seen patient was started on vancomycin and received a dose of Rocephin infectious disease was consulted for further management of antibiotic therapy Review of Systems Positive point has been mentioned in the HPI rest of the systems are negative Past Medical History Past Medical History: Asthma, GERD/Reflux, Liver Disease, Osteoarthritis (OA) Additional Past Medical History / Comment(s): ELEVATED LIVER ENZYMES., HX OF PERFORATED STOMACH ULCER., sister states patient has HEPATITIS C, epigastric pain, recent admission for taking too much tylenol pm per pt. History of Any Multi-Drug Resistant Organisms: None Reported Past Surgical History: Hernia Repair, Tubal Ligation Additional Past Surgical History / Comment(s): PLASTIC SURGERY TO FOREHEAD, P ERFORATED STOMACH ULCER. laser surgery to right leg for varicose veins Past Anesthesia/Blood Transfusion Reactions: No Reported Reaction Past Psychological History: ADD/ADHD, Anxiety, Depression Additional Psychological History / Comment(s): per sister has been very depressed for years, but has never taken medication for depression. Smoking Status: Current every day smoker Past Alcohol Use History: Daily Additional Past Alcohol Use History / Comment(s): STARTED SMOKING AT AGE 13 per sister, SMOKING NOW 1/2 PPD at least, is a heavy smoker and chain smokes when able. SMOKING FOR 48 YEARS. Past Drug Use History: Marijuana Additional Drug Use History / Comment(s): patient used to use cocaine and meth in her 20's. Also known to smoke crack in November 2016. Sister believes that she is not using anything at this time. - Past Family History Mother Family Medical History: Cancer Additional Family Medical History / Comment(s): OVARIAN CA Father History Unknown: Yes Additional Family Medical History / Comment(s): father when patient was very young (2 year old), he of a gunshot wound outside of a bar at the age of 23 Medications and Allergies Home Medications Medication Instructions Recorded Confirmed Type Atorvastatin [Lipitor] 40 mg PO HS 08/24/21 08/24/21 History Clopidogrel [Plavix] 75 mg PO DAILY 08/24/21 08/24/21 History Cyanocobalamin (Vitamin B-12) 1,000 mcg PO DAILY 08/24/21 08/24/21 History [Vitamin B-12] Ergocalciferol [Vitamin D2 (1250 1,250 mcg PO TH 08/24/21 08/24/21 History Mcg = 92831 Iu)] Escitalopram [Lexapro] 20 mg PO DAILY 08/24/21 08/24/21 History QUEtiapine [SEROquel] 25 mg PO HS PRN 08/24/21 08/24/21 History rOPINIRole HCL [Requip] 1 mg PO HS 08/24/21 08/24/21 History Allergies Allergy/AdvReac Type Severity Reaction Status Date / Time No Known Allergies Allergy Verified 08/24/21 06:17 Physical Exam Vitals: Vital Signs Temp Pulse Pulse Resp BP BP Pulse Ox 08/24/21 07:42 97.9 F 76 18 140/79 98 08/24/21 05:09 86 16 123/78 98 08/24/21 00:02 82 16 127/79 98 08/23/21 21:43 98 F 90 18 98/62 98 Intake and Output 08/23/21 08/24/21 08/24/21 22:59 06:59 14:59 Other: Weight 58.967 kg 58.967 kg GENERAL DESCRIPTION: Middle-aged female lying in bed, no distress. No tachypnea or accessory muscle of respiration use. HEENT: Shows Pallor , no scleral icterus. Oral mucous membrane is dry. No pharyngeal erythema or thrush NECK: Trachea central, no thyromegaly. LUNGS: Unlabored breathing. Clear to auscultation anteriorly. No wheeze or crackle. HEART: S1, S2, regular rate and rhythm. No loud murmur ABDOMEN: Soft, no tenderness , guarding or rigidity, no organomegaly EXTREMITIES: Right hand and wrist area with swelling and redness. And tender to touch no blister no open wound or any drainage SKIN: No rash, no masses palpable. NEUROLOGICAL: The patient is awake, alert, oriented x3, mood and affect normal. Results CBC & Chem 7: 08/23/21 22:38 08/23/21 22:38 Labs: Abnormal Lab Results - Last 24 Hours (Table) 08/23/21 08/23/21 Range/Units 22:38 22:38 RBC 3.55 L (3.80-5.40) m/uL Hgb 11.3 L (11.4-16.0) gm/dL Plt Count 143 L (150-450) k/uL ESR 42 H (0-20) mm/hr Chloride 109 H (98-107) mmol/L AST 74 H (14-36) U/L ALT 41 H (4-34) U/L Assessment and Plan (1) Cellulitis of hand, right Current Visit: Yes Status: Acute Code(s): L03.113 - CELLULITIS OF RIGHT UPPER LIMB SNOMED Code(s): 24158573 Plan: 1patient presented hospital with right hand swelling did have redness started with a trauma about 4 days ago and now concerning for possible underlying hematoma versus cellulitis/abscess in this patient currently with no fever or elevated white count will be more concern of traumatic injury rather than infection such as an abscess but not entirely excluded. 2we will wait for the CT of the wrist which has been ordered by orthopedics. 3vancomycin pharmacy to dose target trough of 15 while watching kidney function and vancomycin trough closely. We will follow on clinical condition and cultures to further adjust medication if needed Thank you for this consultation will follow this patient along with you. Time with Patient: Greater than 30
[2021-08-25] MEDS: HYDROmorphone 0.5 MG/0.5 ML SYRINGE IVP PRN ×3 (04:59→20:07)
[2021-08-25] MEDS: SODIUM CHLORIDE 0.9% 1,000 ML IV SCH ×3 (05:06→23:59)
[2021-08-25] MEDS ORDERED: LORazepam 2 MG/ML INJ IV STA (08:01)
[2021-08-25] MEDS: CYANOCOBALAMIN 500 MCG TAB PO SCH (09:43)
[2021-08-25] MEDS: ESCITALOPRAM 20 MG TAB PO SCH (09:43)
[2021-08-25] MEDS: PANTOPRAZOLE 40 MG/10 ML VIAL IVP SCH (09:44)
--- NOTE | 2021-08-25 09:47 | P.PN ---
Subjective Progress Note Date: 08/25/21 Principal diagnosis: Right hand cellulitis Patient was seen at bedside this morning resting comfortably lying in semirecumbent position. Patient says she is still having pain in the right upper extremity more specifically in the right hand and wrist both on the dorsum and palmar aspects. Patient says she is still unable to extend her digits in the right hand without having increased pain. Patient also mentions she feels there is some increased swelling extending proximally toward the right elbow. Patient also mentions she thinks there is some increased redness over the dorsum of the hand. Patient denies chest pain, fever, shortness of breath, nausea, vomiting, change in vision, loss/bladder control. Objective - Vital Signs Vital signs: Vital Signs Temp 97.9 F 08/25/21 07:23 Pulse 80 08/25/21 07:23 Resp 17 08/25/21 07:23 BP 138/78 08/25/21 07:23 Pulse Ox 98 08/25/21 07:23 FiO2 Intake & Output 08/24/21 08/25/21 08/25/21 18:59 06:59 18:59 Intake Total 118 Balance 118 Weight 58.967 kg Intake: Oral 118 Other: Voiding Method Toilet # Voids 1 1 - Exam inspection: negative for any open fractures, ecchymosis, significant nodules. Positive for moderate swelling in the dorsum and palmar aspects of the right hand as well as digits in the right hand. positive for erythema along the dorsal right wrist and dorsum of the hand and palm of right hand. excoriations present over right forearm. Sensation: Is equal, symmetric, bilaterally intact throughout the upper and lower extremities Palpation: significant TTP along dorsum of right hand and palmar aspecs at MCPJ near digits 2,3 4. NTTP throughout rest of exam ROM: Significantly limited/decreased ROM in right wrist and digits 2, 3, 4 in right hand due to pain and swelling. Patient holds all digits in rihgt hand in flexed position. FROM in BLE and rest of RUE and all of LUE. 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 flexion/extension of right wrist 3/5 due to pain. 4+/5 in all other major motor groups Neurovascular: intact bilaterally. radial pulses 2+ bilaterally. cap refill <3 seconds in digits of upper extremities special tests: negative Homans bilaterally - Labs CBC & Chem 7: 08/23/21 22:38 08/23/21 22:38 Labs: Abnormal Lab Results - Last 24 Hours (Table) 08/24/21 Range/Units 11:38 Urine Opiates Screen Detected H (NotDetected) Ur Amphetamines Screen Detected H (NotDetected) U Methamphetamines Scrn Detected H (NotDetected) U Marijuana (THC) Screen Detected H (NotDetected) Microbiology - Last 24 Hours (Table) 08/23/21 22:55 Blood Culture - Preliminary Blood No Growth after 24 hours 08/23/21 22:40 Blood Culture - Preliminary Blood No Growth after 24 hours Assessment and Plan Assessment: 1. right hand cellulitis possible horseshoe abscess 2. Multiple medical comorbidities Plan: 1. Right hand cellulitis; possible horseshoe abscess - Patient stable at bedside this morning. XR right hand negative for any fractures/dislocations. MRI w/wo contrast of right hand ordered for further evaluation. Patient to continue on antibiotics at this time. Pain meds as needed. Patient to remain NPO for now. Potential surgical intervention pending MRI findings. We will continue to follow while patient is in hospital 2. Appreciate medical and ID management 3. Pain management - [place]; Tylenol; dilaudid only if necessary 4. DVT ppx - mechanical 5. GI ppx - Protonix 6. PT/OT - NWB RUE Time with Patient: Less than 30
[2021-08-25] MEDS ORDERED: VANCOMYCIN TROUGH DUE 1 EACH MISC MISCELLANE ONE (10:00)
[2021-08-25 10:17] LABS: Basophils # (A) 0.1 k/uL (0-0.2); Basophils % (A) 1 %; Eosinophils # (A) 0.1 k/uL (0-0.7); Eosinophils % (A) 3 %; HCT 32.4 % (34.0-46.0); HGB 10.9 gm/dL (11.4-16.0); Lymphocytes # (A) 1.2 k/uL (1.0-4.8); Lymphocytes % (A) 28 %; MCH 32.8 pg (25.0-35.0); MCHC 33.7 g/dL (31.0-37.0); MCV 97.4 fL (80.0-100.0); Mean Platelet Volume 7.7; Monocytes # (A) 0.3 k/uL (0-1.0); Monocytes % (A) 7 %; Neutrophils # (A) 2.6 k/uL (1.3-7.7); Neutrophils % (A) 59 %; Platelet Count 126 k/uL (150-450); RBC 3.32 m/uL (3.80-5.40); RDW 13.5 % (11.5-15.5); WBC 4.4 k/uL (3.8-10.6)
[2021-08-25 10:51] LABS: African American GFR (CKD) >90 (>60 ml/min/1.73 sqM); Anion Gap 3 mmol/L; Blood Urea Nitrogen 8 mg/dL (7-17); C Reactive Protein 1.6 mg/dL (<1.0); Calcium 8.2 mg/dL (8.4-10.2); Carbon Dioxide 26 mmol/L (22-30); Chloride 103 mmol/L (98-107); Glucose 100 mg/dL (74-99); Non-African American GFR(CKD) >90 (>60 ml/min/1.73 sqM); Potassium 3.7 mmol/L (3.5-5.1); Sodium 132 mmol/L (137-145)
[2021-08-25] MEDS: VANCOMYCIN 1,000 MG in SODIUM CHLORIDE 0.9% 250 ML IVPB SCH ×2 (11:11→19:00)
[2021-08-25 12:01] LABS: Erythrocyte Sedimentation Rate 40 mm/hr (0-20)
--- NOTE | 2021-08-25 12:17 | P.PN ---
Subjective Progress Note Date: 08/25/21 H&P Date: 08/24/21 Chief Complaint: Right hand swelling and redness This is a pleasant 65-year-old female with past medical history of COPD, ongoing nicotine dependence alcohol abuse,gastroesophageal reflux disease, liver disease, hepatitis C, polysubstance abuse- methamphetamines,crack, cocaine osteoarthritis, generalized anxiety disorder, depression and multiple other medical issues presented to the ER with right hand swelling, redness and pain 4 days. Reports she hit her hand on her dresser, and proceeded to the urgent care who referred her to the emergency room. Blood cultures obtained, IV fluids and IV antibiotics of vancomycin, Rocephin initiated. Vancomycin has since been discontinued . CT of the right hand ordered, pending. Afebrile, normal WBC, hemoglobin 11.3, platelets 143, renal function stable, electrolyte within normal limits, AST 74, ALT 41, CRP 0.8. Head CT reported nonspecific soft tissue thickening over the dorsal aspect of the hand and wrist with no definite abscess formation or soft tissue gas, underlying soft tissue infection cannot be excluded, no definite fracture identified .Evaluated by infectious disease and orthopedic surgery with recommendations noted. Maintained on vancomycin as per pharmacy dosing. Renal function stable. Continues on IV fluids, sodium 132. Complains of pain, right upper extremity, greatest on the dorsum aspect , proximal to middle finger. MRI of affected extremity pending.Toxicology screen positive for opiates, amphetamines ,methamphetamines and marijuana. Afebrile, normal WBC. CRP initially normal, increased to 1.6 today. Denies chest pain, palpitations or shortness of breath. Objective - Vital Signs Vital signs: Vital Signs Temp 97.9 F 08/25/21 07:23 Pulse 80 08/25/21 07:23 Resp 17 08/25/21 07:23 BP 138/78 08/25/21 07:23 Pulse Ox 98 08/25/21 07:23 FiO2 Intake & Output 08/24/21 08/25/21 08/25/21 18:59 06:59 18:59 Intake Total 118 Balance 118 Weight 58.967 kg Intake: Oral 118 Other: Voiding Method Toilet Toilet # Voids 1 1 - Exam PHYSICAL EXAM: VITAL SIGNS: [As above] GENERAL: Alert and oriented 3, Sitting up in bed, no acute distress HEENT: Conjunctivae normal. eyes normal. MMM. NECK: Supple, No JVD. No LNs CARDIOVASCULAR: S1, S2 regular. No murmur RESPIRATION: Breath sounds diminished in the bases. No rhonchi or crackles. No bronchial breathing. ABDOMEN: Soft, nontender . No guarding. no masses palpable. No ascites, No hepatosplenomegaly.Bowel sounds heard. EXTREMITIES: Right hand tender, decreased redness. Edema extending above the wrist, up to the elbow, able to slowly flex and bend swollen digits, positive radial pulse. Legs: No edema. no swelling NERVOUS SYSTEM: Cranial N 2-12 grossly normal. No focal deficits. Strength and sensation grossly intact. Skin: Warm and dry, no rash - Labs CBC & Chem 7: 08/25/21 10:01 08/25/21 10:01 Labs: Abnormal Lab Results - Last 24 Hours (Table) 08/24/21 08/25/21 Range/Units 11:38 10:01 RBC 3.32 L (3.80-5.40) m/uL Hgb 10.9 L (11.4-16.0) gm/dL Hct 32.4 L (34.0-46.0) % Plt Count 126 L (150-450) k/uL Urine Opiates Screen Detected H (NotDetected) Ur Amphetamines Screen Detected H (NotDetected) U Methamphetamines Scrn Detected H (NotDetected) U Marijuana (THC) Screen Detected H (NotDetected) Microbiology - Last 24 Hours (Table) 08/23/21 22:55 Blood Culture - Preliminary Blood No Growth after 24 hours 08/23/21 22:40 Blood Culture - Preliminary Blood No Growth after 24 hours Assessment and Plan Assessment: Right hand infection with cellulitis, possible spider bite, possible puncture wound, status post trauma, possible abscess Chronic COPD without acute exacerbation Chronic nicotine dependence Chronic alcohol abuse Chronic thrombocytopenia Steatosis, alcoholic Hepatitis C, history of Gastroesophageal reflux disease Marijuana use History of polysubstance abuse, cocaine, meth., crack Toxicology screen reporting opiates ,amphetamines, methamphetamines and THC. Arthritis Generalized anxiety disorder Unspecified Depressive disorder, history of suicide attempt Plan: Continue on current medication regime ,monitoring and symptomatic treatment. Maintain IV antibiotics, IV fluids. Preliminary Blood cultures reporting no growth after 24 hours, continue following closely. Nothing by mouth, pending MRI results for potential surgical intervention. The impression and plan of care has been dictated as directed. : I performed a history and examination of this patient, discussed the same with the dictator. I agree with the dictator's note ,documented as a scribe. Any additional findings or plans will be noted.
--- NOTE | 2021-08-25 16:57 | MR ---
MR right hand without and with contrast HISTORY: Abscess, tenosynovitis, pain and swelling Multiplanar multisequence imaging obtained through the head and pre and post administration of 60 cc Gadavist IV. Correlation to CT 08/24/2021 There is motion, artifact on the exam. Extensive subcutaneous edema is present. Along the extensor tendon sheath there is abnormal intermedi ate T1 signal and increased T2 signal over the dorsum of the wrist area, the area measures 4 cm x 3.3 cm x 12 mm but extends more centrally beyond the edge of the exam, especially she abnormal fluid als o extends posterior to the second digit the level of the distal metacarpal. Some heterogeneous signal within the tendon sheath may reflect some early or a considerable vein. There is enhancement along the dorsum of the hand along the tendon sheath level again not completely included on the exam and likely extending over the dorsum of the forearm but not included on the imag es. Flexor and extensor tendons are intact. Some arthropathy changes are noted especially at the first di git. IMPRESSION: Findings consistent with tenosynovitis, correlate to exclude cellulitis, infection
[2021-08-25] MEDS: HYDROcodone/APAP 5-325MG 1 EACH TAB PO PRN ×2 (18:58→23:58)
[2021-08-25] MEDS: ATORVASTATIN 40 MG TAB PO SCH (20:43)
[2021-08-26] MEDS: VANCOMYCIN 1,000 MG in SODIUM CHLORIDE 0.9% 250 ML IVPB SCH ×3 (03:53→21:16)
[2021-08-26] MEDS: HYDROmorphone 0.5 MG/0.5 ML SYRINGE IVP PRN ×4 (04:01→22:50)
--- NOTE | 2021-08-26 07:02 | P.PN ---
Subjective Progress Note Date: 08/25/21 Principal diagnosis: Right hand cellulitis Patient is a 65-year-old female presenting to the hospital for right hand swelling and pain apparently started after the patient hit her hand on the corner of the [place], CT did show cellulitis but no drainable abscess MRI is pending on today's evaluation that is 08/25/2021, the patient denies having any fever or any chills pain and swelling to the area right hand is slightly decreased in intensity, denies any chest pain or shortness of breath or cough no abdominal pain no diarrhea Objective - Vital Signs Vital signs: Vital Signs Temp 97.9 F 08/25/21 07:23 Pulse 80 08/25/21 07:23 Resp 17 08/25/21 07:23 BP 138/78 08/25/21 07:23 Pulse Ox 98 08/25/21 07:23 FiO2 Intake & Output 08/24/21 08/25/21 08/25/21 18:59 06:59 18:59 Intake Total 118 Balance 118 Weight 58.967 kg Intake: Oral 118 Other: Voiding Method Toilet Toilet # Voids 1 1 - Exam GENERAL DESCRIPTION: An elderly male lying in bed in no distress RESPIRATORY SYSTEM: Unlabored breathing , decreased breath sounds at bases HEART: S1 S2 regular rate and rhythm , ABDOMEN: Soft , no tenderness EXTREMITIES: Right hand swelling and redness has slightly decreased - Labs CBC & Chem 7: 08/25/21 10:01 08/25/21 10:01 Labs: Abnormal Lab Results - Last 24 Hours (Table) 08/24/21 08/25/21 Range/Units 11:38 10:01 RBC 3.32 L (3.80-5.40) m/uL Hgb 10.9 L (11.4-16.0) gm/dL Hct 32.4 L (34.0-46.0) % Plt Count 126 L (150-450) k/uL Urine Opiates Screen Detected H (NotDetected) Ur Amphetamines Screen Detected H (NotDetected) U Methamphetamines Scrn Detected H (NotDetected) U Marijuana (THC) Screen Detected H (NotDetected) Microbiology - Last 24 Hours (Table) 08/23/21 22:55 Blood Culture - Preliminary Blood No Growth after 24 hours 08/23/21 22:40 Blood Culture - Preliminary Blood No Growth after 24 hours Assessment and Plan (1) Cellulitis of hand, right Current Visit: Yes Status: Acute Code(s): L03.113 - CELLULITIS OF RIGHT UPPER LIMB SNOMED Code(s): 65006949 Plan: 1patient presented hospital with right hand swelling did have redness started with a trauma about 4 days ago and now concerning for possible underlying hematoma versus cellulitis/abscess in this patient currently with no fever or elevated white count will be more concern of traumatic injury rather than infection such as an abscess but not entirely excluded. 2we will wait for the MRI of the wrist which has been ordered by orthopedics. 3patient will continue vancomycin pharmacy to dose target trough of 15 while watching kidney function and vancomycin trough closely. Time with Patient: Less than 30
[2021-08-26] MEDS: ESCITALOPRAM 20 MG TAB PO SCH (07:09)
[2021-08-26] MEDS: CYANOCOBALAMIN 500 MCG TAB PO SCH (07:09)
[2021-08-26] MEDS: PANTOPRAZOLE 40 MG/10 ML VIAL IVP SCH (08:01)
--- NOTE | 2021-08-26 08:09 | P.PN ---
Subjective Progress Note Date: 08/26/21 Principal diagnosis: Dorsal right hand abscess Patient evaluated this morning she continues to have swelling over the dorsum of her right hand and erythema and it is not getting better MRIs reviewed there is or appears to be likely pyogenic extensor tenosynovitis of the fourth c ompartment. I discussed with her different options surgical and nonsurgical at this point is not getting better so I would recommend incision and drainage of her dorsal compartments with irrigation and debridement and tenolysis for evacuation of any infective material. She really has no pain on the volar surface of her hand or over the flexor she has her palm is painful but it is likely due to swelling there is no visible abscess on the palmar side or the carpal tunnel Objective - Vital Signs Vital signs: Vital Signs Temp 98.6 F 08/26/21 07:57 Pulse 75 08/26/21 07:57 Resp 20 08/26/21 07:57 BP 148/89 08/26/21 07:57 Pulse Ox 96 08/26/21 07:57 FiO2 Intake & Output 08/25/21 08/26/21 08/26/21 18:59 06:59 18:59 Other: Voiding Method Toilet Toilet # Voids 1 - Exam Alert and oriented 3 appears well-nourished well-hydrated is in no acute distress does not appear septic Vital signs stable Right upper extremity Right hand is evaluated there continues to be erythema and swelling about the dorsum of the right hand which is somewhat consolidated over the fourth dorsal compartment of the hand and wrist there is fluctuance in this area. There is no open wounds at this time. There is tenderness to palpation in this area as well. There is no tenderness along the flexor sheaths of any fingers there is mild tenderness over the palmar surface with swelling Sensation intact to median radial ulnar nerve Motor intact to median radial ulnar nerve Palpable radial and ulnar pulses Brisk capillary reflex all fingers less than 2 seconds - Labs CBC & Chem 7: 08/25/21 10:01 08/25/21 10:01 Labs: Abnormal Lab Results - Last 24 Hours (Table) 08/25/21 08/25/21 Range/Units 10:01 10:01 RBC 3.32 L (3.80-5.40) m/uL Hgb 10.9 L (11.4-16.0) gm/dL Hct 32.4 L (34.0-46.0) % Plt Count 126 L (150-450) k/uL ESR 40 H (0-20) mm/hr Sodium 132 L (137-145) mmol/L Creatinine 0.36 L (0.52-1.04) mg/dL Glucose 100 H (74-99) mg/dL Calcium 8.2 L (8.4-10.2) mg/dL C-Reactive Protein 1.6 H (<1.0) mg/dL Microbiology - Last 24 Hours (Table) 08/23/21 22:55 Blood Culture - Preliminary Blood No Growth after 48 hours 08/23/21 22:40 Blood Culture - Preliminary Blood No Growth after 48 hours Assessment and Plan Assessment: 65-year-old female right hand dorsal abscess with potential pyogenic extensor tenosynovitis Plan: -Nothing by mouth -Plan for OR today for incision and drainage right hand dorsum with extensor tenolysis Orthopedic Surgery Risk Review Clara Marshall is a 65-year-old female presenting for evaluation of sudden onset right-hand pain, inability to use hand due to swelling and erythema. It was my pleasure to have seen and examined Clara Marshall. In our visit today we have had a chance to go over subjective complaints, physical examination findings and treatments including the natural course history without intervention and various interventional options. Her imaging demonstrates possible fluid collection of the fourth dorsal compartment of the wrist the right hand potential abscess or pyogenic extensor tenosynovitis. On physical exam, Rolando Elizabeth demonstrates pain with motion of right wrist and fingers with no flexor sheath pain or fusiform swelling in the fingers and no palmar surface pain at this time, which is NV intact at this time. I have explained to the patient that this fracture needs stabilization. Based on the patients imaging, physical exam, and the rapid progression and disabling nature of her symptoms, at this time I recommend surgery in the form or a: Incision and drainage with irrigation and debridement right dorsal hand and extensor tendons I discussed the risk and benefits of this procedure at length with Clara Marshall. Questions were invited and answered, and the patient wishes to proceed as outlined below. Currently, I am recommendin. Incision and drainage with irrigation and debridement right dorsal hand extensor tendons and abscess 2. Review of surgical risks and benefits as well as an educational packet on the proposed surgical procedure. Risks: All surgical procedures come with inherent risks, including those related to positioning, anesthesia, intraoperative findings, and postoperative complications. It is important to understand that surgery does not come with any guarantee of a successful outcome as complications and adverse events are always possible. The patient was given a handout discussing the surgical procedure and risks associated with the intervention, both of which were discussed with the patient. These risks include but are not limited to the following: - Experiencing same, different or even worse symptoms compared to before surgery. - Requiring further surgery or other forms of treatment presently or at some time in the future . - On an extreme but fortunately relatively rare basis severe complication such as blindness, stroke, heart attack, temporary and/or permanent nerve injury, paralysis, coma, or may occur, sometimes without known explanation. - Surgical complications may include but are not limited to risk of infection, fluid accumulation in the surgical dissection site, including a seroma or hematoma, that requires additional surgery, wound drainage, bleeding, new numbness or weakness, vision changes/loss, spinal fluid leakage, non-healing and/or infected incision, headaches, difficulty or inability to swallow, hoarseness, hemopneumothorax, pneumothorax, injury to nerves, spinal cord, blood vessels, lymphatics or other vital organs (i.e., bowel injury, injury to the great vessels); heterotopic bone formation; complications related to the hardware such as screws, rods, including misplaced hardware, device failure, hardware fracture/breakage, or hardware loosening; retained surgical instrumentations or devices and the need for further surgery. - Medical risks of the planned surgery include but are not limited to generalized Infections to the whole body or local areas outside of the surgical site (sepsis), heart attack, bleeding, anaphylaxis, meningitis, seizure, epilepsy, hearing loss, burn caceres, laceration of the head or other areas of the body, bruising, hypersensitivity of the skin, bladder over distension; allergic reaction; shoulder injury related to positioning; fat, blood and air clots to other areas of the body like heart, lungs, brain; failure of internal organs such as lungs, kidneys, liver and excessive bleeding. If blood transfusions are necessary, note that transfusions may cause intolerance reactions such as anaphylaxis or other complex reactions. Despite best efforts, the results of surgery might not heal in terms of bone, soft tissues such as skin, fascia, ligaments, and joints. [facility] has multiple operating rooms with single and overlapping rooms running daily. They currently function under the required guidelines as produced by the Senate Finance Committee with regards to the overlapping rooms and will continue to comply with changes to this policy as they occur. The requirements include and are complied with as follows: (1) the critical portions of the overlapping rooms will not occur at the same time, (2) the attending physician will be physically present during the critical portions of the procedure and immediately available during the entire case, and (3) a back-up attending is designated should the primary attending not be immediately available. The patient has had a chance to review all the listed information, has been given print outs detailing this information, and has had all his/her questions answered to their satisfaction. It was my pleasure to have seen and examined Clara Marshall. In our visit today we have had a chance to go over my understanding of our patient's current condition, the natural course history without intervention and various interventional options. Questions were invited and answered, and the patient wishes to proceed as outlined above. I have seen and examined the patient for 25 minutes and we have spent more than 50% of the time in repeat and detailed counseling about the patient's condition, its natural course history with out and as much as can be predicted with surgery and re-review of various surgical treatment options. In conclusion, Clara Marshall requested we proceed with the above suggested surgery and are willing to accept risks and limitations of the suggested surgery as nature of the disease process and our best attempts at treatment for the condition. Thank you again for allowing us to be part of your patient's care. Please don't hesitate to contact me if you have any further questions. Signed and authenticated by: Chriss Fuentes [facility] [address] [place] [address] [address]
[2021-08-26 09:55] LABS: African American GFR (CKD) 127.6 (60.0-200.0); Non-African American GFR(CKD) 110.1 (60.0-200.0)
--- NOTE | 2021-08-26 13:14 | P.PN ---
Subjective Progress Note Date: 08/26/21 H&P Date: 08/24/21 Chief Complaint: Right hand swelling and redness This is a pleasant 65-year-old female with past medical history of COPD, ongoing nicotine dependence alcohol abuse,gastroesophageal reflux disease, liver disease, hepatitis C, polysubstance abuse- methamphetamines,crack, cocaine osteoarthritis, generalized anxiety disorder, depression and multiple other medical issues presented to the ER with right hand swelling, redness and pain 4 days. Reports she hit her hand on her dresser, and proceeded to the urgent care who referred her to the emergency room. Blood cultures obtained, IV fluids and IV antibiotics of vancomycin, Rocephin initiated. Vancomycin has since been discontinued . CT of the right hand ordered, pending. Afebrile, normal WBC, hemoglobin 11.3, platelets 143, renal function stable, electrolyte within normal limits, AST 74, ALT 41, CRP 0.8. 08/25/[address] reported nonspecific soft tissue thickening over the dorsal aspect of the hand and wrist with no definite abscess formation or soft tissue gas, underlying soft tissue infection cannot be excluded, no definite fracture identified .Evaluated by infectious disease and orthopedic surgery with recommendations noted. Maintained on vancomycin as per pharmacy dosing. Renal function stable. Continues on IV fluids, sodium 132. Complains of pain, right upper extremity, greatest on the dorsum aspect , proximal to middle finger. MRI of affected extremity pending.Toxicology screen positive for opiates, amphetamines ,methamphetamines and marijuana. Afebrile, normal WBC. CRP initially normal, increased to 1.6 today. Denies chest pain, palpitations or otto rtness of breath. 08/26/21 continues to have significant pain of the right hand, in addition to ext ensive swelling of right upper extremity .Hand MRI reported findings consistent with tenosynovitis. Evaluated by orthopedic surgery and patient is scheduled for I&D with extensor tenolysis today. Denies chest pain, palpitations or shortness of breath. Maintained on vancomycin, renal function stable. T-max 99.1, normal WBC. Preliminary blood cultures apart no growth after 48 hours. Objective - Vital Signs Vital signs: Vital Signs Temp 98.6 F 08/26/21 07:57 Pulse 75 08/26/21 07:57 Resp 20 08/26/21 07:57 BP 148/89 08/26/21 07:57 Pulse Ox 96 08/26/21 07:57 FiO2 Intake & Output 08/25/21 08/26/21 08/26/21 18:59 06:59 18:59 Other: Voiding Method Toilet Toilet # Voids 1 - Exam PHYSICAL EXAM: VITAL SIGNS: [As above] GENERAL: Alert and oriented 3, Sitting up in bed, no acute distress HEENT: Conjunctivae normal. eyes normal. MMM. NECK: Supple, No JVD. No LNs CARDIOVASCULAR: S1, S2 regular. No murmur RESPIRATION: Bilateral air entry with diminished bases. ABDOMEN: Soft, nontender . No guarding. no masses palpable. No ascites, No hepatosplenomegaly.Bowel sounds heard. EXTREMITIES: Right hand tender, decreased redness,edema extending up to the elbow, positive radial pulse, elevated on pillow. Legs: No edema. no swelling NERVOUS SYSTEM: Cranial N 2-12 grossly normal. No focal deficits. Strength and sensation grossly intact. Skin: Warm and dry, no rash - Labs CBC & Chem 7: 08/25/21 10:01 08/26/21 04:19 Labs: Abnormal Lab Results - Last 24 Hours (Table) 08/26/21 Range/Units 04:19 Creatinine 0.4 L (0.6-1.5) mg/dL Microbiology - Last 24 Hours (Table) 08/23/21 22:55 Blood Culture - Preliminary Blood No Growth after 48 hours 08/23/21 22:40 Blood Culture - Preliminary Blood No Growth after 48 hours Assessment and Plan Assessment: Right hand infection with cellulitis, possible spider bite, possible puncture wound, status post trauma, possible abscess. Hand MRI reporting tenosynovitis. Chronic COPD without acute exacerbation Chronic nicotine dependence Chronic alcohol abuse Chronic thrombocytopenia Steatosis, alcoholic Hepatitis C, history of Gastroesophageal reflux disease Marijuana use History of polysubstance abuse, cocaine, meth., crack Toxicology screen reporting opiates ,amphetamines, methamphetamines and THC. Arthritis Generalized anxiety disorder Unspecified Depressive disorder, history of suicide attempt Plan: Continue on current medication regime ,monitoring and symptomatic treatment. NPO, OR pending. Continue IV antibiotics, IV fluids. Pain management The impression and plan of care has been dictated as directed. : I performed a history and examination of this patient, discussed the same with the dictator. I agree with the dictator's note ,documented as a scribe. Any additional findings or plans will be noted.
[2021-08-26] MEDS ORDERED: IV FLUID CONTINUATION 700 ML IV ONE (14:18)
[2021-08-26] MEDS ORDERED: fentaNYL (PF) 50 MCG/ML 2 ML AMP ONE (15:28)
[2021-08-26] MEDS ORDERED: MIDAZOLAM 2 MG/2 ML VIAL ONE (15:28)
[2021-08-26] MEDS ORDERED: PROPOFOL 10 MG/ML 20 ML VIAL IV ONE (15:28)
[2021-08-26] MEDS ORDERED: LIDOCAINE 2% INJ 20 MG/ML (2 ML VIAL) ONE (15:28)
[2021-08-26] MEDS ORDERED: ceFAZolin 1,000 MG in SODIUM CHLORIDE 0.9% 1,000 ML IRRIGATION ONE (15:55)
[2021-08-26] MEDS ORDERED: HYDROmorphone 0.5 MG/0.5 ML SYRINGE IVP ONE (16:36)
--- NOTE | 2021-08-26 17:01 | P.OP ---
Date of Procedure: 08/26/21 Preoperative Diagnosis: 1. Pyogenic extensor tenosynovitis right hand/wrist 2. Cellulitis Right hand secondary to #1 3. Failed IVABX treatment Postoperative Diagnosis: 1. Pyogenic extensor tenosynovitis right hand/wrist 2. Right radiocarpal joint septic arthritis 3. Cellulitis Right hand secondary to #1 4. Failed IVABX treatment Procedure(s) Performed: 1. Incision and drainage dorsal abscess wrist with excisional debridment right dorsal hand skin, soft tissue tendon and bone using the following: (57136) -Skin knife used to incise skin and remove necrotic subq tissue -Iris scissors used for removal of pyogenic synovitis/lesion extensor tendons 4th dorsal compartment -1 L abx saline irrigation, 2 L NSS irrigation 2. Right wrist 4th dorsal compartment release with tenolysis extensor tendons (06886) 3. Arthrotomy radiocarpal joint with exploration irrigation and drainage (32560) 4. Radical Excision of lesion, tynosynovitis of extensor tendon sheath 4th dorsal compartment tendons right wrist (56522, 36482) 5. Biopsy of deep tissue wrist (78746) Implants: NOne Anesthesia: MAC Surgeon: Chriss Sandra Estimated Blood Loss (ml): 35 IV fluids (ml): 300 Urine output (ml): 0 Pathology: other (x2 cultures dorsal wrist, x2 biopsies 4th dorsal compartment lesions) Condition: stable Disposition: PACU Indications for Procedure: 65 yo female presented with 5 days of increasing right dorsal wrist cellulitis, pain, redness, swelling and difficulty with motion. She was treated outpt originally with oral abx which failed and she presented to the ED with increasing pain and redness. She was admitted to the hospital started on IVABX and ID was consulted along with orthopedics. We evaluated the patient. She was found to have fairly severe dorsal swelling as well as erythema and some fluctuence but also had palmar pain and swelling. No flexor sheath swelling or pain however. MRI of the hand w/wo contrast revealed flucctuent intense fluid in the dorsal compartments of the wrsit especially the 4th dorsal compartment. This was suspicious for abscess or infective process. She was maintained on abx for a day and she did not get any better so we discussed with the patient dif ferent options including surgical debridment. She agreed and since she was no better this morning she was taken to the OR for I&D with exploration, abscess drainage and debridement of her dorsal hand. Description of Procedure: The patient was seen and examined in the preoperative area. All preoperative protocols were followed. Informed consent was obtained risks and benefits of the procedure were discussed at length. Risks including bleeding infection damage to the surrounding tissue and risk of reoperation were discussed with the patient. Risk of anesthesia up to and including was a discussed with the patient. These are outlined in the risk reviewed. They were willing to accept these risks and all of the risks of surgery. The patient was given a weight- based dose of antibiotics in the form of she has been on vancomycin from the floor. The patient was seen and evaluated by the anesthesia team who deemed them fit for surgery. The site was marked, the patient was willing to proceed with the procedure. The patient was transferred to the operative suite by the Department of anesthesia. There were then drifted off to sleep by the department of anesthesia and LMA anesthesia was used. Once adequate anesthesia had been obtained the patient was carefully transferred to the operative bed. All bony prominences were padded accordingly. SCDs were placed on the nonoperative lower extremities. Arms were well padded. Right arm was exposed placed on a arm board tourniquet was placed on the patient's right upper arm 10:15 placed her on this and well-padded. Preoperative briefing was done with the operative team and everyone was ready for the procedure to start. The patients right arm and hand was then prepped and draped in the normal sterile fashion. Timeout was then performed and all parties in agreement with the procedure to be performed. Skin marker was used to singh out the wrist joint as well as the dorsal compartments. Tourniquet was inflated to 250 mmHg. Skin incision was made over the fourth dorsal compartment over the wrist tenotomies used for blunt dissection down to the extensor sheath and extensor retinaculum which were identified and cleaned. Electrocautery used for hemostasis. Once the dorsal part was identified inside skin knife was used to incise this in line with the tendons. Once the fourth compartment was incised and the retinaculum was released a large amount of purulence as well as phlegmon was removed from the dorsal compartment. This was cultured 2 along with tissue sent to the lab and to pathology. Upon further investigation there was extensive tenosynovium right wrist throughout the dorsal compartment of the extensor tendons and this was radically released from the tendons using iris scissors pharmacy picking technician and inside knife. We removed as much of the tenosynovitis as we could perform into the lysis of these tendons and the dorsal compartment. There is no damage to these tendons however they are extremely inflamed due to the infection presumed in this area. Once the tendons were mobilized we did identify the floor of the fourth compartment and this was the dorsal capsule to the radial carpal joint there was erosion through this into the joint and so this was released revealing small amount of purulence within the radiocarpal joint. We released this further allowing access to the radiocarpal joint performing arthrotomy here so that we could irrigate and debride the joint. Once this was performed a liter of antibiotic saline solution was irrigated through the wound and through the joint followed by 2 L of normal sterile saline through the wound to the joint we again removed any debris and sent pathologic specimens and biopsy to the lab of the tenosynovium as well as the lesions in this area as they were a mix between pyogenic and tenosynovitis. Once this was accomplished and we had debrided the subcutaneous tissue using a knife and iris scissors. The capsule was closed with 3-0 Vicryl in a simple fashion the extensor retinaculum was loosely closed with 3-0 Vicryl in a [id number] fashion. The extensor compartment was left mostly open for drainage purposes and due to the fact that it was essentially eroded away from the infective process. We then dropped the tourniquet and performed meticulous hemostasis was once again irrigated the area with normal sterile saline we then closed the skin loosely with 2-0 nylon in a horizontal mattress fashion. The wound edges approximated very well. The wound was then cleaned and dressed sterilely with Adaptic 4 x 4 ABDs Kerlix and an Cayetano wrap. The patient was then transferred back to their hospital bed. There were awakened by department of anesthesia having tolerated the procedure very well with no complications. The patient was then transported to the postoperative care unit in stable condition.
[2021-08-26] MEDS: HYDROcodone/APAP 5-325MG 1 EACH TAB PO SCH ×2 (17:15→17:34)
[2021-08-26] MEDS ORDERED: ONDANSETRON 4 MG/2 ML VIAL IVP ONE (17:29)
[2021-08-26] MEDS: LACTATED RINGERS 1,000 ML IV SCH (17:35)
[2021-08-26] MEDS: ATORVASTATIN 40 MG TAB PO SCH (21:14)
[2021-08-27] MEDS: HYDROcodone/APAP 5-325MG 1 EACH TAB PO SCH ×5 (00:22→23:54)
[2021-08-27] MEDS: SODIUM CHLORIDE 0.9% 1,000 ML IV SCH ×6 (00:24→23:29)
[2021-08-27] MEDS: VANCOMYCIN 1,000 MG in SODIUM CHLORIDE 0.9% 250 ML IVPB SCH ×3 (03:52→19:53)
[2021-08-27] MEDS: HYDROmorphone 0.5 MG/0.5 ML SYRINGE IVP PRN ×4 (04:38→20:13)
[2021-08-27] MEDS: PANTOPRAZOLE 40 MG/10 ML VIAL IVP SCH (08:52)
[2021-08-27] MEDS ORDERED: ERGOCALCIFEROL 1,250 MCG (50,000 IU) CAPSULE PO SCH (09:00)
[2021-08-27] MEDS: CYANOCOBALAMIN 500 MCG TAB PO SCH (09:48)
[2021-08-27] MEDS: ESCITALOPRAM 20 MG TAB PO SCH (09:48)
[2021-08-27] MEDS ORDERED: VANCOMYCIN TROUGH DUE 1 EACH MISC MISCELLANE ONE (10:00)
[2021-08-27] MEDS: LACTATED RINGERS 1,000 ML IV SCH (12:49)
[2021-08-27 13:14] LABS: Basophils # (A) 0.1 k/uL (0-0.2); Basophils % (A) 1 %; Eosinophils # (A) 0.1 k/uL (0-0.7); Eosinophils % (A) 2 %; HGB 10.6 gm/dL (11.4-16.0); Lymphocytes # (A) 1.4 k/uL (1.0-4.8); Lymphocytes % (A) 23 %; MCH 32.2 pg (25.0-35.0); MCHC 33.2 g/dL (31.0-37.0); MCV 97.1 fL (80.0-100.0); Mean Platelet Volume 7.9; Monocytes # (A) 0.7 k/uL (0-1.0); Monocytes % (A) 11 %; Neutrophils # (A) 3.7 k/uL (1.3-7.7); Neutrophils % (A) 61 %; Platelet Count 202 k/uL (150-450); RBC 3.29 m/uL (3.80-5.40); RDW 13.4 % (11.5-15.5)
[2021-08-27 13:28] LABS: African American GFR (CKD) >90 (>60 ml/min/1.73 sqM); Anion Gap 8 mmol/L; Blood Urea Nitrogen 10 mg/dL (7-17); Calcium 8.3 mg/dL (8.4-10.2); Carbon Dioxide 21 mmol/L (22-30); Chloride 106 mmol/L (98-107); Glucose 105 mg/dL (74-99); Non-African American GFR(CKD) >90 (>60 ml/min/1.73 sqM); Potassium 3.6 mmol/L (3.5-5.1); Sodium 135 mmol/L (137-145)
--- NOTE | 2021-08-27 13:49 | P.PN ---
Subjective Progress Note Date: 08/27/21 Principal diagnosis: 1. Pyogenic extensor tenosynovitis right hand/wrist 2. Cellulitis Right hand Patient was seen at bedside this afternoon resting comfortably with cayetano bandage/dressing on RUE lying in semirecumbent position. Patient says she is still having pain in the right upper extremity. Patient says she is still unable to move the digits in her right hand and notes there is some swelling up to her elbow. Patient denies chest pain, fever, shortness of breath, nausea, vomiting, change in vision, loss/bladder control. Objective - Vital Signs Vital signs: Vital Signs Temp 98 F 08/27/21 07:20 Pulse 76 08/27/21 07:20 Resp 16 08/27/21 07:20 BP 100/64 08/27/21 07:20 Pulse Ox 94 L 08/27/21 07:20 FiO2 Intake & Output 08/26/21 08/27/21 08/27/21 18:59 06:59 18:59 Intake Total 1051 Output Total 20 Balance 1031 Intake: IV 1051 Output: Estimated Blood Loss 20 Other: Voiding Method Toilet # Voids 4 2 - Exam inspection: Moderate swelling in the digits of RUE. Cayetano bandage/dressing present on RUE from surgery. Dressing to remain on for rest of today. Dressing will be changed tmrw Sensation: equal, symmetric, bilaterally intact throughout the upper and lower extremities Palpation: moderate TTP along digits of RUE Rest of exam on RUE limited due to dressing. NTTP throughout rest of exam. ROM: Significantly limited/decreased ROM in right wrist and digits 2, 3, 4 in right hand due to pain and swelling. FROM in BLE and rest of RUE and all of LUE. Motor: [place] Line Attendant strength 2+/5 in right hand. flexion/extension of right wrist 3/5 due to pain. 4+/5 in all other major motor groups Neurovascular: intact bilaterally. radial pulses 2+ bilaterally. cap refill <3 seconds in digits of upper extremities special tests: negative Homans bilaterally - Labs CBC & Chem 7: 08/27/21 12:32 08/27/21 12:32 Labs: Abnormal Lab Results - Last 24 Hours (Table) 08/27/21 08/27/21 Range/Units 12:32 12:32 RBC 3.29 L (3.80-5.40) m/uL Hgb 10.6 L (11.4-16.0) gm/dL Hct 32.0 L (34.0-46.0) % Sodium 135 L (137-145) mmol/L Carbon Dioxide 21 L (22-30) mmol/L Creatinine 0.49 L (0.52-1.04) mg/dL Glucose 105 H (74-99) mg/dL Calcium 8.3 L (8.4-10.2) mg/dL Microbiology - Last 24 Hours (Table) 08/26/21 14:25 Gram Stain - Preliminary Hand - Right Wound Culture - Preliminary 08/26/21 14:24 Gram Stain - Preliminary Hand - Right Wound Culture - Preliminary 08/26/21 14:24 Anaerobic Culture - Preliminary Hand - Right 08/26/21 14:24 Fungal Culture - Preliminary Hand - Right 08/26/21 14:25 Anaerobic Culture - Preliminary Hand - Right 08/26/21 14:25 Fungal Culture - Preliminary Hand - Right 08/23/21 22:55 Blood Culture - Preliminary Blood No Growth after 72 hours 08/23/21 22:40 Blood Culture - Preliminary Blood No Growth after 72 hours Assessment and Plan Assessment: 1. Pyogenic extensor tenosynovitis right hand/wrist 2. Cellulitis Right hand Postoperative day 1 status post I&D dorsal abscess wrist with excisional debridement right hand skin, soft tissue tendon bone; right wrist fourth dorsal compartment release with tenolysis extensor tendons; arthrotomy radiocarpal joint with exploration irrigation and drainage Plan: 1. 1. Pyogenic extensor tenosynovitis right hand/wrist; Cellulitis Right hand - 08/26/2021 - I&D dorsal abscess wrist with excisional debridement right hand skin, soft tissue tendon bone; right wrist fourth dorsal compartment release with tenolysis extensor tendons; arthrotomy radiocarpal joint with exploration irrigation and drainage. Patient does have Cayetano bandage and dressing present in right upper extremity distal to elbow. To keep Cayetano bandage/dressing on for the rest of today. Plan to take down dressing tomorrow morning and change dressing. Begin Hibiclens soaks tmrw, 3x/day for 15 mins at a time. Cultures pending. Continue Vanco for now. NWB RUE. We will continue to follow patient while in hospital. 2. Appreciate medical and ID management 3. Pain management - Bruno; Tylenol; dilaudid only if necessary 4. DVT ppx - mechanical 5. GI ppx - Protonix 6. PT/OT - NWB RUE Time with Patient: Less than 30
--- NOTE | 2021-08-27 14:32 | P.PN ---
Subjective Progress Note Date: 08/27/21 H&P Date: 08/24/21 Chief Complaint: Right hand swelling and redness This is a pleasant 65-year-old female with past medical history of COPD, ongoing nicotine dependence alcohol abuse,gastroesophageal reflux disease, liver disease, hepatitis C, polysubstance abuse- methamphetamines,crack, cocaine osteoarthritis, generalized anxiety disorder, depression and multiple other medical issues presented to the ER with right hand swelling, redness and pain 4 days. Reports she hit her hand on her dresser, and proceeded to the urgent care who referred her to the emergency room. Blood cultures obtained, IV fluids and IV antibiotics of vancomycin, Rocephin initiated. Vancomycin has since been discontinued . CT of the right hand ordered, pending. Afebrile, normal WBC, hemoglobin 11.3, platelets 143, renal function stable, electrolyte within normal limits, AST 74, ALT 41, CRP 0.8. 08/25/[address] reported nonspecific soft tissue thickening over the dorsal aspect of the hand and wrist with no definite abscess formation or soft tissue gas, underlying soft tissue infection cannot be excluded, no definite fracture identified .Evaluated by infectious disease and orthopedic surgery with recommendations noted. Maintained on vancomycin as per pharmacy dosing. Renal function stable. Continues on IV fluids, sodium 132. Complains of pain, right upper extremity, greatest on the dorsum aspect , proximal to middle finger. MRI of affected extremity pending.Toxicology screen positive for opiates, amphetamines ,methamphetamines and marijuana. Afebrile, normal WBC. CRP initially normal, increased to 1.6 today. Denies chest pain, palpitations or otto rtness of breath. 08/26/21 continues to have significant pain of the right hand, in addition to ext ensive swelling of right upper extremity .Hand MRI reported findings consistent with tenosynovitis. Evaluated by orthopedic surgery and patient is scheduled for I&D with extensor tenolysis today. Denies chest pain, palpitations or shortness of breath. Maintained on vancomycin, renal function stable. T-max 99.1, normal WBC. Preliminary blood cultures apart no growth after 48 hours. 08/27/21 yesterday underwent I&D of dorsal abscess and wrist with excisional debridement of right dorsal hand skin, soft tissue tendon and bone, right wrist fourth dorsal compartment release with tenolysis extensor tendons, arthrotomy radiocarpal joint with exploration and irrigation and drainage, radical excision of lesion, tynosynovitis of intense or tendon sheath fourth dorsal compartment tendons right wrist and biopsy of deep tissue wrist, tolerated procedure well. Positive pain, proximal edema improving. Maintained on vancomycin, IV fluids. Renal function stable. T-max 99.5, WBC within normal limits. Denies chest pain, palpitations or shortness of breath. Maintaining O2 sats in the 90s on room air. Objective - Vital Signs Vital signs: Vital Signs Temp 98 F 08/27/21 07:20 Pulse 76 08/27/21 07:20 Resp 16 08/27/21 07:20 BP 100/64 08/27/21 07:20 Pulse Ox 94 L 08/27/21 07:20 FiO2 Intake & Output 08/26/21 08/27/21 08/27/21 18:59 06:59 18:59 Intake Total 1051 Output Total 20 Balance 1031 Intake: IV 1051 Output: Estimated Blood Loss 20 Other: Voiding Method Toilet # Voids 4 2 1 - Exam PHYSICAL EXAM: VITAL SIGNS: [As above] GENERAL: Alert and oriented 3, Sitting up in bed, no acute distress HEENT: Conjunctivae normal. eyes normal. MMM. NECK: Supple, No JVD. No LNs CARDIOVASCULAR: S1, S2 regular. No murmur RESPIRATION: Bilateral air entry with diminished bases. ABDOMEN: Soft, nontender . No guarding. no masses palpable. No ascites, No hepatosplenomegaly.Bowel sounds heard. EXTREMITIES: Status post surgery, Cayetano wrapped, fingers swollen, warm, able to wiggle each digit, proximal edema decreased NERVOUS SYSTEM: Cranial N 2-12 grossly normal. No focal deficits. Strength and sensation grossly intact. Skin: Warm and dry, no rash - Labs CBC & Chem 7: 08/27/21 12:32 08/27/21 12:32 Labs: Abnormal Lab Results - Last 24 Hours (Table) 08/27/21 08/27/21 Range/Units 12:32 12:32 RBC 3.29 L (3.80-5.40) m/uL Hgb 10.6 L (11.4-16.0) gm/dL Hct 32.0 L (34.0-46.0) % Sodium 135 L (137-145) mmol/L Carbon Dioxide 21 L (22-30) mmol/L Creatinine 0.49 L (0.52-1.04) mg/dL Glucose 105 H (74-99) mg/dL Calcium 8.3 L (8.4-10.2) mg/dL Microbiology - Last 24 Hours (Table) 08/26/21 14:25 Gram Stain - Preliminary Hand - Right Wound Culture - Preliminary 08/26/21 14:24 Gram Stain - Preliminary Hand - Right Wound Culture - Preliminary 08/26/21 14:24 Anaerobic Culture - Preliminary Hand - Right 08/26/21 14:24 Fungal Culture - Preliminary Hand - Right 08/26/21 14:25 Anaerobic Culture - Preliminary Hand - Right 08/26/21 14:25 Fungal Culture - Preliminary Hand - Right 08/23/21 22:55 Blood Culture - Preliminary Blood No Growth after 72 hours 08/23/21 22:40 Blood Culture - Preliminary Blood No Growth after 72 hours Assessment and Plan Assessment: Right hand infection with cellulitis, possible spider bite, possible puncture wound, status post trauma, possible abscess. Hand MRI reporting tenosynovitis. Pyogenic extensor tendon cellulitis right hand, wrist status post I&D dorsal abscess wrist with excisional debridement right hand skin, soft tiss ue tendon bone; right wrist fourth dorsal compartment release with tenolysis extensor tendons; arthrotomy radiocarpal joint with exploration irrigation and drainage. Chronic COPD without acute exacerbation Chronic nicotine dependence Chronic alcohol abuse Chronic thrombocytopenia Steatosis, alcoholic Hepatitis C, history of Gastroesophageal reflux disease Marijuana use History of polysubstance abuse, cocaine, meth., crack Toxicology screen reporting opiates ,amphetamines, methamphetamines and THC. Arthritis Generalized anxiety disorder Unspecified Depressive disorder, history of suicide attempt Plan: Continue on current medication regime ,monitoring and symptomatic treatment. Maintain IV antibiotics, IV fluids. Pain management as per orthopedic surgery. The impression and plan of care has been dictated as directed. : I performed a history and examination of this patient, discussed the same with the dictator. I agree with the dictator's note ,documented as a scribe. Any additional findings or plans will be noted.
--- NOTE | 2021-08-27 19:31 | P.PN ---
Progress Note - Text Progress Note Date: 08/27/21 Pt s/e. Pacing room. C/o some pain. Denies any f/c/sob/cp. States no issues overnight otherwise. Dressing CDI. VSS, afeb AOX3 NAD RUE: Right hand dressing CDI <2 sec cap refill all fingers swelling decreased No flexor ttp, some palmar ttp, dorsal ttp still SILT M/R/U nerves +motor M/R/U nerves 65 yo female POD1 Right dorsal wirst I&D for pyogenic extensor tenosynovitis 4th compartment -NWB RUE -ROM OK right hand -Maintain dressing today, start hibiclens soaks tomorrow TID -Pain control PRN -Gi/DVT ppx -Medical managment, ID recs appreciated -Await cultures and path -Will follow
[2021-08-27] MEDS: ATORVASTATIN 40 MG TAB PO SCH (20:13)
[2021-08-28] MEDS: QUEtiapine 50 MG TAB PO PRN ×2 (00:31→22:30)
[2021-08-28] MEDS: VANCOMYCIN 1,000 MG in SODIUM CHLORIDE 0.9% 250 ML IVPB SCH ×2 (03:20→12:56)
[2021-08-28] MEDS: SODIUM CHLORIDE 0.9% 1,000 ML IV SCH ×3 (06:14→19:26)
[2021-08-28] MEDS: HYDROcodone/APAP 5-325MG 1 EACH TAB PO SCH ×4 (06:16→23:18)
[2021-08-28 07:18] LABS: Glucose,Whole Blood 107 mg/dL (70-110)
[2021-08-28 08:07] LABS: African American GFR (CKD) >90 (>60 ml/min/1.73 sqM); Non-African American GFR(CKD) >90 (>60 ml/min/1.73 sqM)
[2021-08-28] MEDS: HYDROmorphone 0.5 MG/0.5 ML SYRINGE IVP PRN ×3 (08:52→20:24)
[2021-08-28] MEDS: PANTOPRAZOLE 40 MG/10 ML VIAL IVP SCH (08:54)
[2021-08-28] MEDS: CYANOCOBALAMIN 500 MCG TAB PO SCH (08:54)
[2021-08-28] MEDS: ESCITALOPRAM 20 MG TAB PO SCH (08:54)
--- NOTE | 2021-08-28 09:01 | P.PN ---
Subjective Progress Note Date: 08/28/21 Principal diagnosis: 1. Pyogenic extensor tenosynovitis right hand/wrist 2. Cellulitis Right hand Patient was seen at bedside this morning resting comfortably with yamilet bandage/dressing on RUE lying in semirecumbent position. Patient says she is still having pain in the right upper extremity. Patient says she is still unable to move the digits in her right hand. Patient says she does notice some decreased swelling in her digits. Patient denies chest pain, fever, shortness of breath, nausea, vomiting, change in vision, loss/bladder control. Objective - Vital Signs Vital signs: Vital Signs Temp 98.3 F 08/28/21 08:00 Pulse 71 08/28/21 08:00 Resp 16 08/28/21 08:00 BP 134/78 08/28/21 08:00 Pulse Ox 96 08/28/21 08:00 FiO2 Intake & Output 08/27/21 08/28/21 08/28/21 18:59 06:59 18:59 Other: Voiding Method Toilet Toilet # Voids 1 2 - Exam inspection: Moderate swelling in the digits of RUE. yamilet bandage/surgical dressin g removed. Incision has some minimal serous drainage. Moderate swelling to dorsum of right hand/wrist. positive for erythema to dorsum of right hand. sutures well aligned and intact. Patient to begin hibiclens soaks TID for 15 mins at a time. Incision to be covered with adaptic, 4x4', ABD and kerlix. Sensation: equal, symmetric, bilaterally intact throughout the upper and lower extremities Palpation: moderate TTP along dorsum of right hand. Minimal TTP along palmar surface and digits in right hand. NTTP throughout rest of exam. ROM: Significantly limited/decreased ROM in right wrist and digits 2, 3, 4 in right hand due to pain and swelling. FROM in BLE and rest of RUE and all of LUE. Motor: Cannoneer strength 2+/5 in right hand. flexion/extension of right wrist 3/5 due to pain. 4+/5 in all other major motor groups Neurovascular: intact bilaterally. radial pulses 2+ bilaterally. cap refill <3 seconds in digits of upper extremities special tests: negative Homans bilaterally - Labs CBC & Chem 7: 08/27/21 12:32 08/28/21 07:37 Labs: Abnormal Lab Results - Last 24 Hours (Table) 08/27/21 08/27/21 Range/Units 12:32 12:32 RBC 3.29 L (3.80-5.40) m/uL Hgb 10.6 L (11.4-16.0) gm/dL Hct 32.0 L (34.0-46.0) % Sodium 135 L (137-145) mmol/L Carbon Dioxide 21 L (22-30) mmol/L Creatinine 0.49 L (0.52-1.04) mg/dL Glucose 105 H (74-99) mg/dL Calcium 8.3 L (8.4-10.2) mg/dL Microbiology - Last 24 Hours (Table) 08/23/21 22:40 Blood Culture - Preliminary Blood No Growth after 96 hours 08/23/21 22:55 Blood Culture - Preliminary Blood No Growth after 96 hours 08/26/21 14:24 Gram Stain - Preliminary Hand - Right Wound Culture - Preliminary 08/26/21 14:25 Gram Stain - Preliminary Hand - Right Wound Culture - Preliminary Assessment and Plan Assessment: 1. Pyogenic extensor tenosynovitis right hand/wrist 2. Cellulitis Right hand Postoperative day 2 status post I&D dorsal abscess wrist with excisional debridement right hand skin, soft tissue tendon bone; right wrist fourth dorsal compartment release with tenolysis extensor tendons; arthrotomy radiocarpal joint with exploration irrigation and drainage Plan: 1. Pyogenic extensor tenosynovitis right hand/wrist; Cellulitis Right hand - surgery performed 08/26/2021 - I&D dorsal abscess wrist with excisional debridement right hand skin, soft tissue tendon bone; right wrist fourth dorsal compartment release with tenolysis extensor tendons; arthrotomy radiocarpal joint with exploration irrigation and drainage. Moderate swelling in the digits of RUE. yamilet bandage/surgical dressing removed. Incision has some minimal serous drainage. Moderate swelling to dorsum of right hand/wrist. positive for erythema to dorsum of right hand. sutures well aligned and intact. Patient to begin hibiclens soaks TID for 15 mins at a time. Incision to be covered with adaptic, 4x4', ABD and kerlix. Cultures pending. Continue Vanco for now. NWB RUE. We will continue to follow patient while in hospital. 2. Appreciate medical and ID management 3. Pain management - Raymond; Tylenol; dilaudid only if necessary 4. DVT ppx - mechanical 5. GI ppx - Protonix 6. PT/OT - NWB RUE Time with Patient: Less than 30
[2021-08-28 11:35] LABS: Glucose,Whole Blood 97 mg/dL (70-110)
--- NOTE | 2021-08-28 11:40 | P.PN ---
Subjective Progress Note Date: 08/28/21 Principal diagnosis: Dorsal right hand abscess Pt s/e. She is agitated this AM getting her labs drawn. Still with swelling about the right hand but getting better. She states pain in the right hand as well but also getting better. She moves her fingers fairly well and has no pain in her flexor tendon region. denies any f/c/sob/cp overnight. Objective - Vital Signs Vital signs: Vital Signs Temp 99.0 F 08/28/21 00:23 Pulse 85 08/28/21 00:23 Resp 24 08/28/21 00:23 BP 147/78 08/28/21 00:23 Pulse Ox 94 L 08/28/21 00:23 FiO2 Intake & Output 08/27/21 08/28/21 08/28/21 18:59 06:59 18:59 Other: Voiding Method Toilet Toilet # Voids 1 2 - Exam Exam repeated, changes noted below. We will start hibiclens soaks today. Inc ision is CDI, mild drianage serous. + edema and swelling. Erythema slightly better. Alert and oriented 3 appears well-nourished well-hydrated is in no acute distress does not appear septic Vital signs stable Right upper extremity Right hand is evaluated there continues to be erythema and swelling about the dorsum of the right hand which is somewhat consolidated over the fourth dorsal compartment of the hand and wrist there is fluctuance in this area. There is no open wounds at this time. There is tenderness to palpation in this area as well. There is no tenderness along the flexor sheaths of any fingers there is mild tenderness over the palmar surface with swelling Sensation intact to median radial ulnar nerve Motor intact to median radial ulnar nerve Palpable radial and ulnar pulses Brisk capillary reflex all fingers less than 2 seconds - Labs CBC & Chem 7: 08/27/21 12:32 08/28/21 07:37 Labs: Abnormal Lab Results - Last 24 Hours (Table) 08/27/21 08/27/21 Range/Units 12:32 12:32 RBC 3.29 L (3.80-5.40) m/uL Hgb 10.6 L (11.4-16.0) gm/dL Hct 32.0 L (34.0-46.0) % Sodium 135 L (137-145) mmol/L Carbon Dioxide 21 L (22-30) mmol/L Creatinine 0.49 L (0.52-1.04) mg/dL Glucose 105 H (74-99) mg/dL Calcium 8.3 L (8.4-10.2) mg/dL Microbiology - Last 24 Hours (Table) 08/23/21 22:40 Blood Culture - Preliminary Blood No Growth after 96 hours 08/23/21 22:55 Blood Culture - Preliminary Blood No Growth after 96 hours 08/26/21 14:24 Gram Stain - Preliminary Hand - Right Wound Culture - Preliminary 08/26/21 14:25 Gram Stain - Preliminary Hand - Right Wound Culture - Preliminary Assessment and Plan Assessment: 65-year-old female right hand dorsal abscess with potential pyogenic extensor tenosynovitis POD2 I&D Plan: -NWB RUE -Maintain dressing CDI -Hibiclens soaks TID to start today -Cont IVABX, ID recs await cultures and path -GI/DVT ppx -Pain control as needed -Will follow
--- NOTE | 2021-08-28 14:42 | P.PN ---
Subjective Progress Note Date: 08/28/21 H&P Date: 08/24/21 Chief Complaint: Right hand swelling and redness This is a pleasant 65-year-old female with past medical history of COPD, ongoing nicotine dependence alcohol abuse,gastroesophageal reflux disease, liver disease, hepatitis C, polysubstance abuse- methamphetamines,crack, cocaine osteoarthritis, generalized anxiety disorder, depression and multiple other medical issues presented to the ER with right hand swelling, redness and pain 4 days. Reports she hit her hand on her dresser, and proceeded to the urgent care who referred her to the emergency room. Blood cultures obtained, IV fluids and IV antibiotics of vancomycin, Rocephin initiated. Vancomycin has since been discontinued . CT of the right hand ordered, pending. Afebrile, normal WBC, hemoglobin 11.3, platelets 143, renal function stable, electrolyte within normal limits, AST 74, ALT 41, CRP 0.8. 08/25/[address] reported nonspecific soft tissue thickening over the dorsal aspect of the hand and wrist with no definite abscess formation or soft tissue gas, underlying soft tissue infection cannot be excluded, no definite fracture identified .Evaluated by infectious disease and orthopedic surgery with recommendations noted. Maintained on vancomycin as per pharmacy dosing. Renal function stable. Continues on IV fluids, sodium 132. Complains of pain, right upper extremity, greatest on the dorsum aspect , proximal to middle finger. MRI of affected extremity pending.Toxicology screen positive for opiates, amphetamines ,methamphetamines and marijuana. Afebrile, normal WBC. CRP initially normal, increased to 1.6 today. Denies chest pain, palpitations or otto rtness of breath. 08/26/21 continues to have significant pain of the right hand, in addition to ext ensive swelling of right upper extremity .Hand MRI reported findings consistent with tenosynovitis. Evaluated by orthopedic surgery and patient is scheduled for I&D with extensor tenolysis today. Denies chest pain, palpitations or shortness of breath. Maintained on vancomycin, renal function stable. T-max 99.1, normal WBC. Preliminary blood cultures apart no growth after 48 hours. 08/27/21 yesterday underwent I&D of dorsal abscess and wrist with excisional debridement of right dorsal hand skin, soft tissue tendon and bone, right wrist fourth dorsal compartment release with tenolysis extensor tendons, arthrotomy radiocarpal joint with exploration and irrigation and drainage, radical excision of lesion, tynosynovitis of intense or tendon sheath fourth dorsal compartment tendons right wrist and biopsy of deep tissue wrist, tolerated procedure well. Positive pain, proximal edema improving. Maintained on vancomycin, IV fluids. Renal function stable. T-max 99.5, WBC within normal limits. Denies chest pain, palpitations or shortness of breath. Maintaining O2 sats in the 90s on room air. 08/28/2021 POD #2,dressing currently off, significant improvement in right hand redness and edema, able to wiggle her fingers easier today. Pain present but improved. T-max 99.3. Maintained on IV antibiotics of cefazolin. Denies chest pain, palpitations or shortness of breath. Objective - Vital Signs Vital signs: Vital Signs Temp 98.3 F 08/28/21 08:00 Pulse 71 08/28/21 08:00 Resp 16 08/28/21 08:00 BP 134/78 08/28/21 08:00 Pulse Ox 96 08/28/21 08:00 FiO2 Intake & Output 08/27/21 08/28/21 08/28/21 18:59 06:59 18:59 Other: Voiding Method Toilet Toilet Toilet # Voids 1 2 - Exam PHYSICAL EXAM: VITAL SIGNS: [As above] GENERAL: Alert and oriented 3, Sitting up in bed, no acute distress HEENT: Conjunctivae normal. eyes normal. MMM. NECK: Supple, No JVD. No LNs CARDIOVASCULAR: S1, S2 regular. No murmur RESPIRATION: Bilateral air entry with diminished bases. ABDOMEN: Soft, nontender . No guarding. no masses palpable. No ascites, No hepatosplenomegaly.Bowel sounds heard. EXTREMITIES: Status post surgery, decreased edema and erythema, fingers swollen, warm, able to wiggle each digit, sutures intact, well approximated, minimal serosanguineous drainage ,positive radial pulse. NERVOUS SYSTEM: Cranial N 2-12 grossly normal. No focal deficits. Strength and sensation grossly intact. Skin: Warm and dry, no rash Microbiology 08/23/21 22:40 Blood Blood Culture - Preliminary No Growth after 96 hours 08/23/21 22:55 Blood Blood Culture - Preliminary No Growth after 96 hours 08/26/21 14:24 Hand - Right Gram Stain - Preliminary 08/26/21 14:24 Hand - Right Wound Culture - Preliminary 08/26/21 14:25 Hand - Right Gram Stain - Preliminary 08/26/21 14:25 Hand - Right Wound Culture - Preliminary 08/26/21 14:24 Hand - Right Anaerobic Culture - Preliminary 08/26/21 14:24 Hand - Right Fungal Culture - Preliminary 08/26/21 14:25 Hand - Right Anaerobic Culture - Preliminary 08/26/21 14:25 Hand - Right Fungal Culture - Preliminary - Labs CBC & Chem 7: 08/27/21 12:32 08/28/21 07:37 Labs: Microbiology - Last 24 Hours (Table) 08/23/21 22:40 Blood Culture - Preliminary Blood No Growth after 96 hours 08/23/21 22:55 Blood Culture - Preliminary Blood No Growth after 96 hours 08/26/21 14:24 Gram Stain - Preliminary Hand - Right Wound Culture - Preliminary 08/26/21 14:25 Gram Stain - Preliminary Hand - Right Wound Culture - Preliminary Assessment and Plan Assessment: Right hand infection with cellulitis, possible spider bite, possible puncture wound, status post trauma, possible abscess. Hand MRI reporting tenosynovitis. Pyogenic extensor tendon cellulitis right hand, wrist status post I&D dorsal abscess wrist with excisional debridement right hand skin, soft tissue tendon bone; right wrist fourth dorsal compartment release with tenolysis extensor tendons; arthrotomy radiocarpal joint with exploration irrigation and drainage. Chronic COPD without acute exacerbation Chronic nicotine dependence Chronic alcohol abuse Chronic thrombocytopenia Steatosis, alcoholic Hepatitis C, history of Gastroesophageal reflux disease Marijuana use History of polysubstance abuse, cocaine, meth., crack Toxicology screen reporting opiates ,amphetamines, methamphetamines and THC. Arthritis Generalized anxiety disorder Unspecified Depressive disorder, history of suicide attempt Plan: Continue on current medication regime ,monitoring and symptomatic treatment. Maintain IV antibiotics, IV fluids. Cultures/pathology pending. Wound care/Pain management as per orthopedic surgery. The impression and plan of care has been dictated as directed. : I performed a history and examination of this patient, discussed the same with the dictator. I agree with the dictator's note ,documented as a scribe. Any additional findings or plans will be noted.
[2021-08-28 16:32] LABS: Glucose,Whole Blood 172 mg/dL (70-110)
[2021-08-28] MEDS: LACTATED RINGERS 1,000 ML IV SCH (18:48)
[2021-08-28] MEDS: ATORVASTATIN 40 MG TAB PO SCH (20:24)
[2021-08-29] MEDS: SODIUM CHLORIDE 0.9% 1,000 ML IV SCH ×3 (04:37→17:28)
[2021-08-29] MEDS: HYDROcodone/APAP 5-325MG 1 EACH TAB PO SCH ×4 (06:00→23:27)
[2021-08-29 07:06] LABS: Glucose,Whole Blood 113 mg/dL (70-110)
[2021-08-29] MEDS: PANTOPRAZOLE 40 MG/10 ML VIAL IVP SCH (07:57)
[2021-08-29] MEDS: CYANOCOBALAMIN 500 MCG TAB PO SCH (07:58)
[2021-08-29] MEDS: HYDROmorphone 0.5 MG/0.5 ML SYRINGE IVP PRN ×3 (08:02→20:34)
[2021-08-29] MEDS: ESCITALOPRAM 20 MG TAB PO SCH (08:02)
[2021-08-29 08:27] LABS: Basophils % (A) 1 %; Eosinophils # (A) 0.2 k/uL (0-0.7); Eosinophils % (A) 5 %; HCT 29.7 % (34.0-46.0); HGB 9.8 gm/dL (11.4-16.0); Lymphocytes % (A) 30 %; MCH 31.8 pg (25.0-35.0); MCHC 33.1 g/dL (31.0-37.0); MCV 96.1 fL (80.0-100.0); Mean Platelet Volume 7.9; Monocytes # (A) 0.3 k/uL (0-1.0); Monocytes % (A) 9 %; Neutrophils # (A) 1.9 k/uL (1.3-7.7); Neutrophils % (A) 54 %; Platelet Count 169 k/uL (150-450); RBC 3.09 m/uL (3.80-5.40); RDW 13.3 % (11.5-15.5); WBC 3.5 k/uL (3.8-10.6)
[2021-08-29 08:38] LABS: African American GFR (CKD) >90 (>60 ml/min/1.73 sqM); Non-African American GFR(CKD) >90 (>60 ml/min/1.73 sqM)
--- NOTE | 2021-08-29 09:22 | P.PN ---
Subjective Progress Note Date: 08/29/21 Principal diagnosis: 1. Pyogenic extensor tenosynovitis right hand/wrist 2. Cellulitis Right hand Patient was seen at bedside this morning resting comfortably with dressing on RUE lying in semirecumbent position. Patient says she is still having pain in the right upper extremity. Patient says she is able to move her fingers a little bit better, but she says she is not able to extend them fully. Patient says she does notice some decreased swelling in her digits. Patient denies chest pain, fever, shortness of breath, nausea, vomiting, change in vision, loss/bladder control. Objective - Vital Signs Vital signs: Vital Signs Temp 97.8 F 08/29/21 07:36 Pulse 69 08/29/21 07:36 Resp 16 08/29/21 07:36 BP 132/79 08/29/21 07:36 Pulse Ox 96 08/29/21 07:36 FiO2 Intake & Output 08/28/21 08/29/21 08/29/21 18:59 06:59 18:59 Other: Voiding Method Toilet Toilet # Voids 3 - Exam inspection: Moderate swelling in the digits of RUE. kerlix and dressing removed. Incision has some minimal serous drainage with an area distally with some scant purulent drainage. Moderate swelling to dorsum of right hand/wrist. positive for erythema to dorsum of right hand. sutures well aligned and intact. Patient to continue hibiclens soaks TID for 15 mins at a time. Incision to be covered with adaptic, 4x4', ABD and kerlix. Sensation: equal, symmetric, bilaterally intact throughout the upper and lower extremities Palpation: moderate TTP along dorsum of right hand. Minimal TTP along palmar surface and digits in right hand. NTTP throughout rest of exam. ROM: Significantly limited/decreased ROM in right wrist and digits 2, 3, 4 in right hand due to pain and swelling. FROM in BLE and rest of RUE and all of LUE. Motor: [employer] strength 2+/5 in right hand. flexion/extension of right wrist 3/5 due to pain. 4+/5 in all other major motor groups Neurovascular: intact bilaterally. radial pulses 2+ bilaterally. cap refill <3 seconds in digits of upper extremities special tests: negative Homans bilaterally - Labs CBC & Chem 7: 08/29/21 08:11 08/29/21 08:11 Labs: Abnormal Lab Results - Last 24 Hours (Table) 08/28/21 08/29/21 08/29/21 Range/Units 16:30 07:03 08:11 WBC 3.5 L (3.8-10.6) k/uL RBC 3.09 L (3.80-5.40) m/uL Hgb 9.8 L (11.4-16.0) gm/dL Hct 29.7 L (34.0-46.0) % Creatinine (0.52-1.04) mg/dL POC Glucose (mg/dL) 172 H 113 H (70-110) mg/dL 08/29/21 Range/Units 08:11 WBC (3.8-10.6) k/uL RBC (3.80-5.40) m/uL Hgb (11.4-16.0) gm/dL Hct (34.0-46.0) % Creatinine 0.38 L (0.52-1.04) mg/dL POC Glucose (mg/dL) (70-110) mg/dL Microbiology - Last 24 Hours (Table) 08/26/21 14:24 Anaerobic Culture - Preliminary Hand - Right 08/26/21 14:25 Anaerobic Culture - Preliminary Hand - Right 08/23/21 22:40 Blood Culture - Preliminary Blood No Growth after 120 hours 08/23/21 22:55 Blood Culture - Preliminary Blood No Growth after 120 hours 08/26/21 14:24 Gram Stain - Final Hand - Right Wound Culture - Final 08/26/21 14:25 Gram Stain - Final Hand - Right Wound Culture - Final Assessment and Plan Assessment: 1. Pyogenic extensor tenosynovitis right hand/wrist 2. Cellulitis Right hand Postoperative day 3 status post I&D dorsal abscess wrist with excisional debri henry right hand skin, soft tissue tendon bone; right wrist fourth dorsal compartment release with tenolysis extensor tendons; arthrotomy radiocarpal joint with exploration irrigation and drainage Plan: 1. Pyogenic extensor tenosynovitis right hand/wrist; Cellulitis Right hand - surgery performed 08/26/2021 - I&D dorsal abscess wrist with excisional debridement right hand skin, soft tissue tendon bone; right wrist fourth dorsal compartment release with tenolysis extensor tendons; arthrotomy radiocarpal joint with exploration irrigation and drainage. Moderate swelling in the digits of RUE. kerlix bandge and dressing removed. Incision has some minimal serous drainage and scant purluent drainage at distal end of incision. Moderate swelling to dorsum of right hand/wrist. positive for erythema to dorsum of right hand. sutures well aligned and intact. Patient to continue hibiclens soaks TID for 15 mins at a time. Incision to be covered with adaptic, 4x4', ABD and kerlix. Cultures pending. Continue Vanco for now. NWB RUE. We will continue to follow patient while in hospital. 2. Appreciate medical and ID management - awaiting finalized cultures and abx recs upon discharge 3. Pain management - [place]; Tylenol; dilaudid only if necessary 4. DVT ppx - mechanical 5. GI ppx - Protonix 6. PT/OT - NWB RUE Time with Patient: Less than 30
--- NOTE | 2021-08-29 09:45 | P.PN ---
Progress Note - Text Progress Note Date: 08/29/21 Patient seen and examined, I reviewed the note, discussed the case with the PA first hand and agree with the assessment and plan of NORMAN Engel. Please see my notes below for any additional recommendations. Hand is still painful but getting better for pt. She states she is trying to move fingers and wrist at this time. Denies any other sx. No f/c/sob/cp at this time. AOX3 NAD VSS RUE: Hand is still erythematous and swollen but palmar swelling much better. Still with dorsal swelling and erythema but not traveling up arm any longer Can passively and actively range PIP, DIP and MCP joints with pain and limited due to swelling 2/4 R/U pulses +motor M/R/U compartments soft and compressive SILT M/R/U nerves 65 yo female POD 3 I&D right dorsal hand -Cont with abx per ID, awiat cultures and path -Cont with hibiclens soaks TID -Cont with PT/OT ROM fingers and wrist -Wraps for swelling -Ice elevation for swelling -pain control as needed -GI/DVT ppx -will follow
[2021-08-29] MEDS ORDERED: VANCOMYCIN TROUGH DUE 1 EACH MISC MISCELLANE ONE (11:00)
[2021-08-29 11:24] LABS: Glucose,Whole Blood 73 mg/dL (70-110)
[2021-08-29] MEDS: LACTATED RINGERS 1,000 ML IV SCH (16:04)
[2021-08-29 16:40] LABS: Glucose,Whole Blood 97 mg/dL (70-110)
[2021-08-29] MEDS: ATORVASTATIN 40 MG TAB PO SCH (20:34)
[2021-08-29 20:36] LABS: Glucose,Whole Blood 118 mg/dL (70-110)
--- NOTE | 2021-08-29 20:52 | P.PN ---
Subjective From the records This is a pleasant 65-year-old female with past medical history of COPD, ongoing nicotine dependence alcohol abuse,gastroesophageal reflux disease, liver disease, hepatitis C, polysubstance abuse- methamphetamines,crack, cocaine ost eoarthritis, generalized anxiety disorder, depression and multiple other medical issues presented to the ER with right hand swelling, redness and pain 4 days. Reports she hit her hand on her dresser, and proceeded to the urgent care who referred her to the emergency room. Blood cultures obtained, IV fluids and IV antibiotics of vancomycin, Rocephin initiated. Vancomycin has since been discontinued . CT of the right hand ordered, pending. Afebrile, normal WBC, hemoglobin 11.3, platelets 143, renal function stable, electrolyte within normal limits, AST 74, ALT 41, CRP 0.8. 08/25/[address] reported nonspecific soft tissue thickening over the dorsal aspect of the hand and wrist with no definite abscess formation or soft tissue gas, underlying soft tissue infection cannot be excluded, no definite fracture identified .Evaluated by infectious disease and orthopedic surgery with recomme ndations noted. Maintained on vancomycin as per pharmacy dosing. Renal function stable. Continues on IV fluids, sodium 132. Complains of pain, right upper extremity, greatest on the dorsum aspect , proximal to middle finger. MRI of affected extremity pending.Toxicology screen positive for opiates, amphetamines ,methamphetamines and marijuana. Afebrile, normal WBC. CRP initially normal, increased to 1.6 today. Denies chest pain, palpitations or shortness of breath. 08/26/21 continues to have significant pain of the right hand, in addition to extensive swelling of right upper extremity .Hand MRI reported findings consistent with tenosynovitis. Evaluated by orthopedic surgery and patient is scheduled for I&D with extensor tenolysis today. Denies chest pain, palpitations or shortness of breath. Maintained on vancomycin, renal function stable. T-max 99.1, normal WBC. Preliminary blood cultures apart no growth after 48 hours. 08/27/21 yesterday underwent I&D of dorsal abscess and wrist with excisional debridement of right dorsal hand skin, soft tissue tendon and bone, right wrist fourth dorsal compartment release with tenolysis extensor tendons, arthrotomy radiocarpal joint with exploration and irrigation and drainage, radical excision of lesion, tynosynovitis of intense or tendon sheath fourth dorsal compartment tendons right wrist and biopsy of deep tissue wrist, tolerated procedure well. Positive pain, proximal edema improving. Maintained on vancomycin, IV fluids. Renal function stable. T-max 99.5, WBC within normal limits. Denies chest pain, palpitations or shortness of breath. Maintaining O2 sats in the 90s on room air. 08/28/2021 POD #2,dressing currently off, significant improvement in right hand redness and edema, able to wiggle her fingers easier today. Pain present but improved. T-max 99.3. Maintained on IV antibiotics of cefazolin. Denies chest pain, palpitations or shortness of breath. Subjective: Doing the care of the patient today 08/29/2021 this is a pleasant 65 years old female with multiple medical problems as above, presents because of right hand infection with severe swelling and erythema secondary to right hand cellulitis status post I and D on by orthopedic team. MRI also showing pyogenic extensor tenosynovitis per or 13 diagnoses. Also patient with evidence of polysubstance abuse. Being monitored and followed closely by orthopedic and infectious disease team. Patient currently on cefazolin per infectious disease team. Patient also on normal saline at 75 mL/h although she does not look she's getting it. 4custodian 0.03. Patient this morning was sleepy but readily arousable and answers questions roselia ropriately. Right hand still significantly swollen Dodie erythematous and tender with vertical wound about 5 inches in length. She has some limited movement and antegrade because of her infection and swollen which looks weaker than the other normal site. Patient also was getting Climax for pain management. Also she is on Seroquel 50 mg at bedtime which she got those last night. Actually at home she was on 25 mg so lower the dose to her home level of 25 mg from [facility]. Wound culture is still pending Objective - Vital Signs Vital signs: Vital Signs Temp 97.8 F 08/29/21 07:36 Pulse 69 08/29/21 07:36 Resp 16 08/29/21 07:36 BP 132/79 08/29/21 07:36 Pulse Ox 96 08/29/21 07:36 FiO2 Intake & Output 08/28/21 08/29/21 08/29/21 18:59 06:59 18:59 Other: Voiding Method Toilet Toilet Toilet # Voids 3 - Exam -GENERAL: The patient is alert and oriented x3, not in any acute distress. Well developed, well nourished. HEENT: Pupils are round and equally reacting to light. EOMI. No scleral icterus. No conjunctival pallor. Normocephalic, atraumatic. No pharyngeal erythema. No thyromegaly. CARDIOVASCULAR: S1 and S2 present. No murmurs, rubs, or gallops. PULMONARY: Chest is clear to auscultation, no wheezing or crackles. ABDOMEN: Soft, nontender, nondistended, normoactive bowel sounds. No palpable organomegaly. MUSCULOSKELETAL: No joint swelling or deformity. -EXTREMITIES: No cyanosis, clubbing, or pedal edema. Right hand is swollen, tender and erythematous with limitation of movement of the hand and fingers because of infection. Vertical surgical wound closed with sutures in place NEUROLOGICAL: Gross neurological examination did not reveal any focal deficits. SKIN: No rashes. no petechiae. - Labs CBC & Chem 7: 08/29/21 08:11 08/29/21 08:11 Labs: Abnormal Lab Results - Last 24 Hours (Table) 08/28/21 08/29/21 08/29/21 Range/Units 16:30 07:03 08:11 WBC 3.5 L (3.8-10.6) k/uL RBC 3.09 L (3.80-5.40) m/uL Hgb 9.8 L (11.4-16.0) gm/dL Hct 29.7 L (34.0-46.0) % Creatinine (0.52-1.04) mg/dL POC Glucose (mg/dL) 172 H 113 H (70-110) mg/dL 08/29/21 Range/Units 08:11 WBC (3.8-10.6) k/uL RBC (3.80-5.40) m/uL Hgb (11.4-16.0) gm/dL Hct (34.0-46.0) % Creatinine 0.38 L (0.52-1.04) mg/dL POC Glucose (mg/dL) (70-110) mg/dL Microbiology - Last 24 Hours (Table) 08/26/21 14:24 Anaerobic Culture - Preliminary Hand - Right 08/26/21 14:25 Anaerobic Culture - Preliminary Hand - Right 08/23/21 22:40 Blood Culture - Preliminary Blood No Growth after 120 hours 08/23/21 22:55 Blood Culture - Preliminary Blood No Growth after 120 hours 08/26/21 14:24 Gram Stain - Final Hand - Right Wound Culture - Final 08/26/21 14:25 Gram Stain - Final Hand - Right Wound Culture - Final Assessment and Plan Assessment: Right hand infection with cellulitis. Hand MRI reporting tenosynovitis. Pyogenic extensor tendon cellulitis right hand, wrist status post I&D dorsal abscess wrist with excisional debridement right hand skin, soft tissue tendon bone; right wrist fourth dorsal compartment release with tenolysis extensor tendons; arthrotomy radiocarpal joint with exploration irrigation and drainage. Mild metabolic and toxic encephalopathy secondary to infection and medication Chronic COPD without acute exacerbation Chronic nicotine dependence Chronic alcohol abuse Chronic thrombocytopenia Steatosis, alcoholic Hepatitis C, history of Gastroesophageal reflux disease Marijuana use History of polysubstance abuse, cocaine, meth., crack Toxicology screen reporting opiates ,amphetamines, methamphetamines and THC. Arthritis Generalized anxiety disorder Unspecified Depressive disorder, history of suicide attempt Plan: This is a pleasant 65 years old female who presents with right hand cellulitis Continue with antibiotic per ID team or following the case, currently she is on cefazolin Orthopedic team were following the case as well. Continue with gentle hydration Lower Seroquel to 25 mg at bedtime when necessary Continue with pain management Labs and medication were reviewed.. Continue same treatment. Continue with symptomatic treatment. Resume home medication. Monitor lytes and vitals. DVT and GI prophylaxis. Further recommendations as per clinical course of the patient DVT prophylaxis: Subcutaneous heparin GI Prophylaxis: Ppi PT/OT: Pending Prognosis is guarded Dr. Pedersen will resume the care of the patient on Tuesday
[2021-08-29] MEDS: HEPARIN SODIUM,PORCINE/PF 5,000 UNIT/0.5 ML SYRINGE SQ SCH (21:42)
[2021-08-29] MEDS: QUEtiapine 25 MG TAB PO PRN (21:43)
--- NOTE | 2021-08-29 23:00 | P.PN ---
Subjective Progress Note Date: 08/26/21 Principal diagnosis: Right hand cellulitis Patient is a 65-year-old female presenting to the hospital for right hand swelling and pain apparently started after the patient hit her hand on the corner of the [place], CT did show cellulitis but no drainable abscess MRI sug gestive of tenosynovitis, patient scheduled for surgery this afternoon on today's evaluation that is 08/26/2021, the patient remains to be afebrile, pain and swelling to the area right hand is slightly decreased in intensity, the patient denies any chest pain or shortness of breath or cough no abdominal pain no diarrhea Objective - Vital Signs Vital signs: Vital Signs Temp 98.6 F 08/26/21 07:57 Pulse 75 08/26/21 07:57 Resp 20 08/26/21 07:57 BP 148/89 08/26/21 07:57 Pulse Ox 96 08/26/21 07:57 FiO2 Intake & Output 08/25/21 08/26/21 08/26/21 18:59 06:59 18:59 Other: Voiding Method Toilet Toilet # Voids 1 - Exam GENERAL DESCRIPTION: An elderly male lying in bed in no distress RESPIRATORY SYSTEM: Unlabored breathing , decreased breath sounds at bases HEART: S1 S2 regular rate and rhythm , ABDOMEN: Soft , no tenderness EXTREMITIES: Right hand swelling and redness has slightly decreased - Labs CBC & Chem 7: 08/29/21 08:11 08/29/21 08:11 Labs: Abnormal Lab Results - Last 24 Hours (Table) 08/26/21 Range/Units 04:19 Creatinine 0.4 L (0.6-1.5) mg/dL Microbiology - Last 24 Hours (Table) 08/23/21 22:55 Blood Culture - Preliminary Blood No Growth after 48 hours 08/23/21 22:40 Blood Culture - Preliminary Blood No Growth after 48 hours Assessment and Plan (1) Cellulitis of hand, right Current Visit: Yes Status: Acute Code(s): L03.113 - CELLULITIS OF RIGHT UPPER LIMB SNOMED Code(s): 20138733 Plan: 1patient presented hospital with right hand swelling did have redness started with a trauma about 4 days ago and now concerning for possible underlying hematoma versus cellulitis/abscess in this patient currently with no fever or elevated white count will be more concern of traumatic injury rather than infection such as an abscess but not entirely excluded. 2 the MRI of the wrist did show tenosynovitis and patient scheduled for chaney rgery this afternoon 3patient will continue vancomycin pharmacy to dose target trough of 15 and jennifer iting surgical drainage and deep culture Time with Patient: Less than 30
--- NOTE | 2021-08-29 23:02 | P.PN ---
Subjective Progress Note Date: 08/27/21 Principal diagnosis: Right hand cellulitis Patient is a 65-year-old female presenting to the hospital for right hand swelling and pain apparently started after the patient hit her hand on the corner of the [place], CT did show cellulitis but no drainable abscess MRI sug gestive of tenosynovitis, patient is status post surgical I&D of the right wrist with the diagnoses of purulent Tenosynovitis on today's evaluation that is 08/27/2021, the patient continues to be afebrile, the patient is still complaining of pain and swelling, the patient denies any chest pain or shortness of breath or cough no abdominal pain no diarrhea Objective - Vital Signs Vital signs: Vital Signs Temp 98 F 08/27/21 07:20 Pulse 76 08/27/21 07:20 Resp 16 08/27/21 07:20 BP 100/64 08/27/21 07:20 Pulse Ox 94 L 08/27/21 07:20 FiO2 Intake & Output 08/26/21 08/27/21 08/27/21 18:59 06:59 18:59 Intake Total 1051 Output Total 20 Balance 1031 Intake: IV 1051 Output: Estimated Blood Loss 20 Other: Voiding Method Toilet # Voids 4 2 1 - Exam GENERAL DESCRIPTION: An elderly male lying in bed in no distress RESPIRATORY SYSTEM: Unlabored breathing , decreased breath sounds at bases HEART: S1 S2 regular rate and rhythm , ABDOMEN: Soft , no tenderness EXTREMITIES: Right hand and wrist is currently dressed in OR dressing - Labs CBC & Chem 7: 08/29/21 08:11 08/29/21 08:11 Labs: Abnormal Lab Results - Last 24 Hours (Table) 08/27/21 08/27/21 Range/Units 12:32 12:32 RBC 3.29 L (3.80-5.40) m/uL Hgb 10.6 L (11.4-16.0) gm/dL Hct 32.0 L (34.0-46.0) % Sodium 135 L (137-145) mmol/L Carbon Dioxide 21 L (22-30) mmol/L Creatinine 0.49 L (0.52-1.04) mg/dL Glucose 105 H (74-99) mg/dL Calcium 8.3 L (8.4-10.2) mg/dL Microbiology - Last 24 Hours (Table) 08/26/21 14:25 Gram Stain - Preliminary Hand - Right Wound Culture - Preliminary 08/26/21 14:24 Gram Stain - Preliminary Hand - Right Wound Culture - Preliminary 08/26/21 14:24 Anaerobic Culture - Preliminary Hand - Right 08/26/21 14:24 Fungal Culture - Preliminary Hand - Right 08/26/21 14:25 Anaerobic Culture - Preliminary Hand - Right 08/26/21 14:25 Fungal Culture - Preliminary Hand - Right 08/23/21 22:55 Blood Culture - Preliminary Blood No Growth after 72 hours 08/23/21 22:40 Blood Culture - Preliminary Blood No Growth after 72 hours Assessment and Plan (1) Cellulitis of hand, right Current Visit: Yes Status: Acute Code(s): L03.113 - CELLULITIS OF RIGHT UPPER LIMB SNOMED Code(s): 17085931 Plan: 1patient presented hospital with right hand swelling did have redness started w ith a trauma about 4 days ago and now concerning for possible underlying hematoma versus cellulitis/abscess in this patient currently with no fever or elevated white count will be more concern of traumatic injury rather than infection such as an abscess but not entirely excluded. 2 the MRI of the wrist did show tenosynovitis and patient is status post surgical I&D on 08/26/2021 with a culture is currently pending 3patient will continue vancomycin pharmacy to dose target trough of 15 while waiting for the cultures to finalize Time with Patient: Less than 30
--- NOTE | 2021-08-29 23:04 | P.PN ---
Subjective Progress Note Date: 08/28/21 Principal diagnosis: Right hand cellulitis Patient is a 65-year-old female presenting to the hospital for right hand swelling and pain apparently started after the patient hit her hand on the corner of the [place], CT did show cellulitis but no drainable abscess MRI sug gestive of tenosynovitis, patient is status post surgical I&D of the right wrist with the diagnoses of purulent Tenosynovitis on today's evaluation that is 08/28/2021, the patient remains to be afebrile, the patient pain to the right wrist and hand has slightly decreased in intensity, the patient denies any chest pain or shortness of breath or cough no abdominal pain no diarrhea Objective - Vital Signs Vital signs: Vital Signs Temp 98.3 F 08/28/21 08:00 Pulse 71 08/28/21 08:00 Resp 16 08/28/21 08:00 BP 134/78 08/28/21 08:00 Pulse Ox 96 08/28/21 08:00 FiO2 Intake & Output 08/27/21 08/28/21 08/28/21 18:59 06:59 18:59 Other: Voiding Method Toilet Toilet Toilet # Voids 1 2 - Exam GENERAL DESCRIPTION: An elderly male lying in bed in no distress RESPIRATORY SYSTEM: Unlabored breathing , decreased breath sounds at bases HEART: S1 S2 regular rate and rhythm , ABDOMEN: Soft , no tenderness EXTREMITIES: Right hand and wrist still has significant swelling and redness no drainage - Labs CBC & Chem 7: 08/29/21 08:11 08/29/21 08:11 Labs: Abnormal Lab Results - Last 24 Hours (Table) 08/27/21 08/27/21 Range/Units 12:32 12:32 RBC 3.29 L (3.80-5.40) m/uL Hgb 10.6 L (11.4-16.0) gm/dL Hct 32.0 L (34.0-46.0) % Sodium 135 L (137-145) mmol/L Carbon Dioxide 21 L (22-30) mmol/L Creatinine 0.49 L (0.52-1.04) mg/dL Glucose 105 H (74-99) mg/dL Calcium 8.3 L (8.4-10.2) mg/dL Microbiology - Last 24 Hours (Table) 08/23/21 22:40 Blood Culture - Preliminary Blood No Growth after 96 hours 08/23/21 22:55 Blood Culture - Preliminary Blood No Growth after 96 hours 08/26/21 14:24 Gram Stain - Preliminary Hand - Right Wound Culture - Preliminary 08/26/21 14:25 Gram Stain - Preliminary Hand - Right Wound Culture - Preliminary Assessment and Plan (1) Cellulitis of hand, right Current Visit: Yes Status: Acute Code(s): L03.113 - CELLULITIS OF RIGHT UPPER LIMB SNOMED Code(s): 10411216 Plan: 1patient presented hospital with right hand swelling did have redness started with a trauma about 4 days ago and now concerning for possible underlying hematoma versus cellulitis/abscess in this patient currently with no fever or elevated white count will be more concern of traumatic injury rather than infect ion such as an abscess but not entirely excluded. 2 the MRI of the wrist did show tenosynovitis and patient is status post surgical I&D on 08/26/2021 with a culture so far negative for resistant pathogen 3we will discontinue vancomycin and start the patient on cefazolin 2 g every 8 hours Time with Patient: Less than 30
--- NOTE | 2021-08-29 23:05 | P.PN ---
Subjective Progress Note Date: 08/29/21 Principal diagnosis: Right hand cellulitis Patient is a 65-year-old female presenting to the hospital for right hand swelling and pain apparently started after the patient hit her hand on the corner of the [place], CT did show cellulitis but no drainable abscess MRI sug gestive of tenosynovitis, patient is status post surgical I&D of the right wrist with the diagnoses of purulent Tenosynovitis on today's evaluation that is 08/29/2021, the patient denies any fever or chills, the patient denies any worsening pain to the right wrist and hand, the patient denies any chest pain , shortness of breath or cough no abdominal pain no diarrhea Objective - Vital Signs Vital signs: Vital Signs Temp 97.8 F 08/29/21 07:36 Pulse 69 08/29/21 07:36 Resp 16 08/29/21 07:36 BP 132/79 08/29/21 07:36 Pulse Ox 96 08/29/21 07:36 FiO2 Intake & Output 08/28/21 08/29/21 08/29/21 18:59 06:59 18:59 Other: Voiding Method Toilet Toilet Toilet # Voids 3 - Exam GENERAL DESCRIPTION: An elderly male lying in bed in no distress RESPIRATORY SYSTEM: Unlabored breathing , decreased breath sounds at bases HEART: S1 S2 regular rate and rhythm , ABDOMEN: Soft , no tenderness EXTREMITIES: Right hand and wrist is currently dressed no drainage on the dressing - Labs CBC & Chem 7: 08/29/21 08:11 08/29/21 08:11 Labs: Abnormal Lab Results - Last 24 Hours (Table) 08/28/21 08/29/21 08/29/21 Range/Units 16:30 07:03 08:11 WBC 3.5 L (3.8-10.6) k/uL RBC 3.09 L (3.80-5.40) m/uL Hgb 9.8 L (11.4-16.0) gm/dL Hct 29.7 L (34.0-46.0) % Creatinine (0.52-1.04) mg/dL POC Glucose (mg/dL) 172 H 113 H (70-110) mg/dL 08/29/21 Range/Units 08:11 WBC (3.8-10.6) k/uL RBC (3.80-5.40) m/uL Hgb (11.4-16.0) gm/dL Hct (34.0-46.0) % Creatinine 0.38 L (0.52-1.04) mg/dL POC Glucose (mg/dL) (70-110) mg/dL Microbiology - Last 24 Hours (Table) 08/26/21 14:24 Anaerobic Culture - Preliminary Hand - Right 08/26/21 14:25 Anaerobic Culture - Preliminary Hand - Right 08/23/21 22:40 Blood Culture - Preliminary Blood No Growth after 120 hours 08/23/21 22:55 Blood Culture - Preliminary Blood No Growth after 120 hours 08/26/21 14:24 Gram Stain - Final Hand - Right Wound Culture - Final 08/26/21 14:25 Gram Stain - Final Hand - Right Wound Culture - Final Assessment and Plan (1) Cellulitis of hand, right Current Visit: Yes Status: Acute Code(s): L03.113 - CELLULITIS OF RIGHT UPPER LIMB SNOMED Code(s): 78211598 Plan: 1patient presented hospital with right hand swelling did have redness started with a trauma about 4 days ago and now concerning for possible underlying hematoma versus cellulitis/abscess in this patient currently with no fever or elevated white count will be more concern of traumatic injury rather than infection such as an abscess but not entirely excluded. 2 the MRI of the wrist did show tenosynovitis and patient is status post surgical I&D on 08/26/2021 with a culture so far negative for resistant pathogen 3patient to continue cefazolin 2 g every 8 hours and monitor clinical course closely Time with Patient: Less than 30
[2021-08-30] MEDS: HYDROmorphone 0.5 MG/0.5 ML SYRINGE IVP PRN ×4 (04:05→19:58)
[2021-08-30] MEDS: HYDROcodone/APAP 5-325MG 1 EACH TAB PO SCH ×4 (05:51→23:40)
[2021-08-30 07:14] LABS: Glucose,Whole Blood 97 mg/dL (70-110)
[2021-08-30] MEDS: SODIUM CHLORIDE 0.9% 1,000 ML IV SCH ×2 (08:00→20:03)
[2021-08-30] MEDS: HEPARIN SODIUM,PORCINE/PF 5,000 UNIT/0.5 ML SYRINGE SQ SCH ×2 (08:00→20:02)
[2021-08-30] MEDS: CYANOCOBALAMIN 500 MCG TAB PO SCH (08:01)
[2021-08-30] MEDS: PANTOPRAZOLE 40 MG/10 ML VIAL IVP SCH (08:01)
[2021-08-30] MEDS: ESCITALOPRAM 20 MG TAB PO SCH (08:02)
[2021-08-30 09:27] LABS: Basophils # (A) 0.02 X 10*3/uL (0.00-0.10); Basophils % (A) 0.6 %; Eosinophils % (A) 5.6 %; HCT 28.4 % (37.2-46.3); HGB 9.1 g/dL (12.0-15.0); Immature Grans, Automated 0 %; Lymphocytes # (A) 1.22 X 10*3/uL (0.90-5.00); Lymphocytes % (A) 33.9 %; MCV 93.7 fL (80.0-97.0); Mean Platelet Volume 10.1 fL (9.5-12.2); Monocytes # (A) 0.38 X 10*3/uL (0.20-1.00); Monocytes % (A) 10.6 %; NRBC Per 100 WBC 0 /100 WBCS (0.0-0.0); Neutrophils # (A) 1.78 X 10*3/uL (1.80-7.70); Neutrophils % (A) 49.3 %; Platelet Count 167 X 10*3/uL (140-440); RBC 3.03 X 10*6/uL (4.10-5.20); RDW 13.3 % (11.5-14.5)
[2021-08-30 09:36] LABS: African American GFR (CKD) 127.6 (60.0-200.0); Anion Gap 10.4 mmol/L (10.00-18.00); BUN/Creat Ratio 17.5 Ratio (12.00-20.00); Calcium 8.3 mg/dL (8.7-10.3); Carbon Dioxide 24.6 mmol/L (20.0-27.5); Magnesium 1.4 mg/dL (1.5-2.4); Non-African American GFR(CKD) 110.1 (60.0-200.0); Potassium 3.1 mmol/L (3.5-5.5)
[2021-08-30] MEDS ORDERED: Potassium Replacement Protocol 1 EACH MISC MISCELLANE PRN (09:39)
--- NOTE | 2021-08-30 09:51 | P.PN ---
Subjective Progress Note Date: 08/30/21 Principal diagnosis: 1. Pyogenic extensor tenosynovitis right hand/wrist 2. Cellulitis Right hand Patient was seen at bedside this morning resting comfortably with dressing on RUE lying in semirecumbent position. Patient says she is still having pain in the right upper extremity. Patient says she is able to move her fingers a little bit better, but she says she is not able to extend them fully. Patient says she does notice some decreased swelling in her digits. Patient says she has been doing Hibiclens soaks 3 times a day. Patient denies chest pain, fever, shortness of breath, nausea, vomiting, change in vision, loss/bladder control. Objective - Vital Signs Vital signs: Vital Signs Temp 98.0 F 08/30/21 08:00 Pulse 73 08/30/21 08:00 Resp 16 08/30/21 08:00 BP 109/72 08/30/21 08:00 Pulse Ox 98 08/30/21 08:00 FiO2 Intake & Output 08/29/21 08/30/21 08/30/21 18:59 06:59 18:59 Intake Total 1080 Balance 1080 Intake: Oral 1080 Other: Voiding Method Toilet Toilet Toilet # Voids 3 4 - Exam inspection: Moderate swelling in the digits of RUE. kerlix and dressing removed. Incision appears to be healing well with some scab formation. Negative for any drainage/purulence. Moderate swelling to dorsum of right hand/wrist. area of erythema over dorsum of right hand appears to decreasing. sutures well aligned and intact. Patient to continue hibiclens soaks TID for 15 mins at a time. Incision to be covered with adaptic, 4x4', ABD and kerlix. Sensation: equal, symmetric, bilaterally intact throughout the upper and lower extremities Palpation: moderate TTP along dorsum of right hand. Minimal TTP along palmar surface and digits in right hand. NTTP throughout rest of exam. ROM: Significantly limited/decreased ROM in right wrist due to pain and swelling. Patient does note and sees improvement in extension in digits 2-4 in RUE, but still lacking full extension. FROM in BLE and rest of RUE and all of LUE. Motor: Child Care Nurse strength 2+/5 in right hand. flexion/extension of right wrist 3/5 due to pain. 4+/5 in all other major motor groups Neurovascular: intact bilaterally. radial pulses 2+ bilaterally. cap refill <3 seconds in digits of upper extremities special tests: negative Homans bilaterally - Labs CBC & Chem 7: 08/30/21 05:25 08/30/21 05:25 Labs: Abnormal Lab Results - Last 24 Hours (Table) 08/29/21 08/30/21 08/30/21 Range/Units 20:35 05:25 05:25 WBC 3.60 L (4.50-10.00) X 10*3/uL RBC 3.03 L (4.10-5.20) X 10*6/uL Hgb 9.1 L (12.0-15.0) g/dL Hct 28.4 L (37.2-46.3) % Neutrophils # 1.78 L (1.80-7.70) X 10*3/uL Potassium 3.1 L (3.5-5.5) mmol/L BUN 7.0 L (9.0-27.0) mg/dL Creatinine 0.4 L (0.6-1.5) mg/dL POC Glucose (mg/dL) 118 H (70-110) mg/dL Calcium 8.3 L (8.7-10.3) mg/dL Magnesium 1.4 L (1.5-2.4) mg/dL Microbiology - Last 24 Hours (Table) 08/23/21 22:55 Blood Culture - Final Blood No Growth after 144 hours 08/23/21 22:40 Blood Culture - Final Blood No Growth after 144 hours Assessment and Plan Assessment: 1. Pyogenic extensor tenosynovitis right hand/wrist 2. Cellulitis Right hand Postoperative day 4 status post I&D dorsal abscess wrist with excisional debridement right hand skin, soft tissue tendon bone; right wrist fourth dorsal compartment release with tenolysis extensor tendons; arthrotomy radiocarpal joint with exploration irrigation and drainage Plan: 1. Pyogenic extensor tenosynovitis right hand/wrist; Cellulitis Right hand - surgery performed 08/26/2021 - I&D dorsal abscess wrist with excisional debridement right hand skin, soft tissue tendon bone; right wrist fourth dorsal compartment release with tenolysis extensor tendons; arthrotomy radiocarpal joint with exploration irrigation and drainage. Moderate swelling in the digits of RUE. kerlix bandge and dressing removed. Incision appears to be healing well at this time. Negative for any drainage. Moderate swelling to dorsum of right hand/wrist. positive for erythema to dorsum of right hand. sutures well aligned and intact. Patient to continue hibiclens soaks TID for 15 mins at a time. Incision to be covered with adaptic, 4x4', ABD and kerlix. Cultures pending. Continue Cefazolin for now. NWB RUE. We'll continue to follow patient while in hospital 2. Appreciate medical and ID management - awaiting finalized cultures and abx recs upon discharge 3. Pain management - [place]; Tylenol; dilaudid only if necessary 4. DVT ppx - mechanical 5. GI ppx - Protonix 6. PT/OT - NWB RUE Time with Patient: Less than 30
[2021-08-30] MEDS: POTASSIUM CHLORIDE ER 20 MEQ TAB.ER PO SCH ×2 (10:16→11:12)
[2021-08-30 11:19] LABS: Glucose,Whole Blood 103 mg/dL (70-110)
[2021-08-30] MEDS: LACTATED RINGERS 1,000 ML IV SCH (15:54)
[2021-08-30 16:25] LABS: Glucose,Whole Blood 96 mg/dL (70-110)
[2021-08-30 20:00] LABS: Glucose,Whole Blood 108 mg/dL (70-110)
[2021-08-30] MEDS: ATORVASTATIN 40 MG TAB PO SCH (20:02)
[2021-08-30] MEDS ORDERED: POTASSIUM CHLORIDE ER 20 MEQ TAB.ER PO STA (21:01)
[2021-08-30] MEDS ORDERED: MAGNESIUM SULFATE-D5W PMX 1 GM in DEXTROSE/WATER 1 100ML.BAG IVPB ONE (21:01)
--- NOTE | 2021-08-30 21:04 | P.PN ---
Subjective From the records This is a pleasant 65-year-old female with past medical history of COPD, ongoing nicotine dependence alcohol abuse,gastroesophageal reflux disease, liver disease, hepatitis C, polysubstance abuse- methamphetamines,crack, cocaine ost eoarthritis, generalized anxiety disorder, depression and multiple other medical issues presented to the ER with right hand swelling, redness and pain 4 days. Reports she hit her hand on her dresser, and proceeded to the urgent care who referred her to the emergency room. Blood cultures obtained, IV fluids and IV antibiotics of vancomycin, Rocephin initiated. Vancomycin has since been discontinued . CT of the right hand ordered, pending. Afebrile, normal WBC, hemoglobin 11.3, platelets 143, renal function stable, electrolyte within normal limits, AST 74, ALT 41, CRP 0.8. 08/25/[address] reported nonspecific soft tissue thickening over the dorsal aspect of the hand and wrist with no definite abscess formation or soft tissue gas, underlying soft tissue infection cannot be excluded, no definite fracture identified .Evaluated by infectious disease and orthopedic surgery with recomme ndations noted. Maintained on vancomycin as per pharmacy dosing. Renal function stable. Continues on IV fluids, sodium 132. Complains of pain, right upper extremity, greatest on the dorsum aspect , proximal to middle finger. MRI of affected extremity pending.Toxicology screen positive for opiates, amphetamines ,methamphetamines and marijuana. Afebrile, normal WBC. CRP initially normal, increased to 1.6 today. Denies chest pain, palpitations or shortness of breath. 08/26/21 continues to have significant pain of the right hand, in addition to extensive swelling of right upper extremity .Hand MRI reported findings consistent with tenosynovitis. Evaluated by orthopedic surgery and patient is scheduled for I&D with extensor tenolysis today. Denies chest pain, palpitations or shortness of breath. Maintained on vancomycin, renal function stable. T-max 99.1, normal WBC. Preliminary blood cultures apart no growth after 48 hours. 08/27/21 yesterday underwent I&D of dorsal abscess and wrist with excisional debridement of right dorsal hand skin, soft tissue tendon and bone, right wrist fourth dorsal compartment release with tenolysis extensor tendons, arthrotomy radiocarpal joint with exploration and irrigation and drainage, radical excision of lesion, tynosynovitis of intense or tendon sheath fourth dorsal compartment tendons right wrist and biopsy of deep tissue wrist, tolerated procedure well. Positive pain, proximal edema improving. Maintained on vancomycin, IV fluids. Renal function stable. T-max 99.5, WBC within normal limits. Denies chest pain, palpitations or shortness of breath. Maintaining O2 sats in the 90s on room air. 08/28/2021 POD #2,dressing currently off, significant improvement in right hand redness and edema, able to wiggle her fingers easier today. Pain present but improved. T-max 99.3. Maintained on IV antibiotics of cefazolin. Denies chest pain, palpitations or shortness of breath. Subjective: Doing the care of the patient today 08/29/2021 this is a pleasant 65 years old female with multiple medical problems as above, presents because of right hand infection with severe swelling and erythema secondary to right hand cellulitis status post I and D on by orthopedic team. MRI also showing pyogenic extensor tenosynovitis per or 13 diagnoses. Also patient with evidence of polysubstance abuse. Being monitored and followed closely by orthopedic and infectious disease team. Patient currently on cefazolin per infectious disease team. Patient also on normal saline at 75 mL/h although she does not look she's getting it. 4custodian 0.03. Patient this morning was sleepy but readily arousable and answers questions roselia ropriately. Right hand still significantly swollen Dodie erythematous and tender with vertical wound about 5 inches in length. She has some limited movement and antegrade because of her infection and swollen which looks weaker than the other normal site. Patient also was getting [place] for pain management. Also she is on Seroquel 50 mg at bedtime which she got those last night. Actually at home she was on 25 mg so lower the dose to her home level of [address] [facility]. Wound culture is still pending 08/30/2021 patient right hand swelling and erythema persistent and surgical wound closed with sutures are in place. Dressing is in place as well. Orthopedic team following the patient closely Infectious edema also following the patient and help with antibiotic management Patient today is more awake after lowering her dose of Seroquel down to 25 mg edges, she is at her mental baseline today. Objective - Vital Signs Vital signs: Vital Signs Temp 98.7 F 08/30/21 14:00 Pulse 74 08/30/21 14:00 Resp 16 08/30/21 14:00 BP 128/62 08/30/21 14:00 Pulse Ox 97 08/30/21 14:00 FiO2 Intake & Output 08/30/21 08/30/21 08/31/21 06:59 18:59 06:59 Intake Total 1080 Balance 1080 Intake: Oral 1080 Other: Voiding Method Toilet Toilet # Voids 4 - Exam -GENERAL: The patient is alert and oriented x3, not in any acute distress. Well developed, well nourished. HEENT: Pupils are round and equally reacting to light. EOMI. No scleral icterus. No conjunctival pallor. Normocephalic, atraumatic. No pharyngeal erythema. No thyromegaly. CARDIOVASCULAR: S1 and S2 present. No murmurs, rubs, or gallops. PULMONARY: Chest is clear to auscultation, no wheezing or crackles. ABDOMEN: Soft, nontender, nondistended, normoactive bowel sounds. No palpable organomegaly. MUSCULOSKELETAL: No joint swelling or deformity. -EXTREMITIES: No cyanosis, clubbing, or pedal edema. Right hand is swollen, tender and erythematous with limitation of movement of the hand and fingers because of infection. Vertical surgical wound closed with sutures in place NEUROLOGICAL: Gross neurological examination did not reveal any focal deficits. SKIN: No rashes. no petechiae. - Labs CBC & Chem 7: 08/30/21 05:25 08/30/21 05:25 Labs: Abnormal Lab Results - Last 24 Hours (Table) 08/29/21 08/30/21 08/30/21 Range/Units 20:35 05:25 05:25 WBC 3.60 L (4.50-10.00) X 10*3/uL RBC 3.03 L (4.10-5.20) X 10*6/uL Hgb 9.1 L (12.0-15.0) g/dL Hct 28.4 L (37.2-46.3) % Neutrophils # 1.78 L (1.80-7.70) X 10*3/uL Potassium 3.1 L (3.5-5.5) mmol/L BUN 7.0 L (9.0-27.0) mg/dL Creatinine 0.4 L (0.6-1.5) mg/dL POC Glucose (mg/dL) 118 H (70-110) mg/dL Calcium 8.3 L (8.7-10.3) mg/dL Magnesium 1.4 L (1.5-2.4) mg/dL Microbiology - Last 24 Hours (Table) 08/26/21 14:25 Anaerobic Culture - Preliminary Hand - Right Presumptive Staph aureus 08/26/21 14:24 Anaerobic Culture - Preliminary Hand - Right Presumptive Staph aureus 08/23/21 22:55 Blood Culture - Final Blood No Growth after 144 hours 08/23/21 22:40 Blood Culture - Final Blood No Growth after 144 hours Assessment and Plan Assessment: Right hand infection with cellulitis. Hand MRI reporting tenosynovitis. Pyogenic extensor tendon cellulitis right hand, wrist status post I&D dorsal abscess wrist with excisional debridement right hand skin, soft tissue tendon bone; right wrist fourth dorsal compartment release with tenolysis extensor tendons; arthrotomy radiocarpal joint with exploration irrigation and drainage. Mild metabolic and toxic encephalopathy secondary to infection and medication Chronic COPD without acute exacerbation Chronic nicotine dependence Chronic alcohol abuse Chronic thrombocytopenia Steatosis, alcoholic Hepatitis C, history of Gastroesophageal reflux disease Marijuana use History of polysubstance abuse, cocaine, meth., crack Toxicology screen reporting opiates ,amphetamines, methamphetamines and THC. Arthritis Generalized anxiety disorder Unspecified Depressive disorder, history of suicide attempt Plan: This is a pleasant 65 years old female who presents with right hand cellulitis Continue with antibiotic per ID team or following the case, currently she is on cefazolin Orthopedic team were following the case as well. Continue with gentle hydration Continue with pain management Labs and medication were reviewed.. Continue same treatment. Continue with symptomatic treatment. Resume home medication. Monitor lytes and vitals. DVT and GI prophylaxis. Further recommendations as per clinical course of the patient DVT prophylaxis: Subcutaneous heparin GI Prophylaxis: Ppi PT/OT: Pending Prognosis is guarded Dr. Pedersen will resume the care of the patient on Tuesday
[2021-08-30] MEDS: QUEtiapine 25 MG TAB PO PRN (21:30)
[2021-08-31] MEDS: HYDROmorphone 0.5 MG/0.5 ML SYRINGE IVP PRN ×4 (04:31→20:20)
[2021-08-31] MEDS: HYDROcodone/APAP 5-325MG 1 EACH TAB PO SCH ×4 (05:17→23:52)
[2021-08-31 06:17] LABS: African American GFR (CKD) >90 (>60 ml/min/1.73 sqM); Magnesium 1.3 mg/dL (1.6-2.3); Non-African American GFR(CKD) >90 (>60 ml/min/1.73 sqM); Potassium 3.5 mmol/L (3.5-5.1)
[2021-08-31 07:26] LABS: Glucose,Whole Blood 108 mg/dL (70-110)
--- NOTE | 2021-08-31 07:59 | P.PN ---
Subjective Progress Note Date: 08/31/21 Principal diagnosis: Dorsal right hand abscess Pt s/e this AM. She is doing OK this AM. Still with pain and swelling about the right hand and wrist but it is feeling somewhat better and she states she can move her fingers better today. Still with pain in the wrist however. She denies any f/c/sob/cp overnight. Still on ABX. Still with hibiclens soaks TID. Objective - Vital Signs Vital signs: Vital Signs Temp 98.3 F 08/31/21 01:03 Pulse 64 08/31/21 01:03 Resp 18 08/31/21 01:03 BP 159/76 08/31/21 01:03 Pulse Ox 96 08/31/21 01:03 FiO2 Intake & Output 08/30/21 08/31/21 08/31/21 18:59 06:59 18:59 Intake Total 1080 1150 Balance 1080 1150 Intake: Intake, IV Titration 1000 Amount Magnesium Sulfate-D5w Pmx 100 1 gm In Dextrose/Water 1 100ml.bag @ 100 mls/hr IVPB ONCE ONE Rx#: [id number] Sodium Chloride 0.9% 1, 900 000 ml @ 75 mls/hr IV . [id number] [facility] Rx#:[id number] Oral 1080 150 Other: Voiding Method Toilet Toilet # Voids 4 - Exam Exam today shows erythema somewhat better today than it has been but swelling still present as well as stiffness in wrist and hand. Incision is CDI w/o purulence at this time or drainage. There is limited motion at the wrist due to pain and swelling. NO pain in flexor sheaths. Pain in palm is better and palmar surface is softer and less swollen although still shows swelling. Cap refill is brisk and less than 2 sec all finger tips. +motor M/R/U nerves + LT M/r/u/N. Remainder of exam stable as below. Alert and oriented 3 appears well-nourished well-hydrated is in no acute distress does not appear septic Vital signs stable Right upper extremity this time. There is tenderness to palpation in this area as well. There is no tenderness along the flexor sheaths of any fingers there is mild tenderness over the palmar surface with swelling Sensation intact to median radial ulnar nerve Motor intact to median radial ulnar nerve Palpable radial and ulnar pulses Brisk capillary reflex all fingers less than 2 seconds - Labs CBC & Chem 7: 08/30/21 05:25 08/31/21 05:33 Labs: Abnormal Lab Results - Last 24 Hours (Table) 08/30/21 08/30/21 08/31/21 Range/Units 05:25 05:25 05:33 WBC 3.60 L (4.50-10.00) X 10*3/uL RBC 3.03 L (4.10-5.20) X 10*6/uL Hgb 9.1 L (12.0-15.0) g/dL Hct 28.4 L (37.2-46.3) % Neutrophils # 1.78 L (1.80-7.70) X 10*3/uL Potassium 3.1 L (3.5-5.5) mmol/L BUN 7.0 L (9.0-27.0) mg/dL Creatinine 0.4 L 0.42 L (0.6-1.5) mg/dL Calcium 8.3 L (8.7-10.3) mg/dL Magnesium 1.4 L 1.3 L (1.5-2.4) mg/dL Microbiology - Last 24 Hours (Table) 08/26/21 14:25 Anaerobic Culture - Preliminary Hand - Right Presumptive Staph aureus 08/26/21 14:24 Anaerobic Culture - Preliminary Hand - Right Presumptive Staph aureus Assessment and Plan Assessment: 65-year-old female right hand dorsal abscess with potential pyogenic extensor t enosynovitis POD5 I&D Plan: -NWB RUE -OT with ROM of right wrist and fingers -Dress as needed, OK to be open to air. -Hibiclens soaks TID to start today -Await final cx. Presumtive Staff Aureus phlegmon. -GI/DVT ppx -Pain control as needed -Will follow, we will continue to evaluate with serial exams. She may need second debridment and washout depending on how this continues to consolidate.
[2021-08-31] MEDS: CYANOCOBALAMIN 500 MCG TAB PO SCH (08:38)
[2021-08-31] MEDS: ESCITALOPRAM 20 MG TAB PO SCH (08:38)
[2021-08-31] MEDS: HEPARIN SODIUM,PORCINE/PF 5,000 UNIT/0.5 ML SYRINGE SQ SCH ×2 (08:38→20:34)
[2021-08-31 08:40] VITALS: BMI 22.3
[2021-08-31] MEDS: SODIUM CHLORIDE 0.9% 1,000 ML IV SCH ×2 (08:42→23:33)
[2021-08-31] MEDS: PANTOPRAZOLE 40 MG/10 ML VIAL IVP SCH (08:44)
[2021-08-31 09:11] LABS: Basophils # (A) 0.02 X 10*3/uL (0.00-0.10); Basophils % (A) 0.6 %; Eosinophils # (A) 0.15 X 10*3/uL (0.04-0.35); Eosinophils % (A) 4.6 %; HCT 29.1 % (37.2-46.3); HGB 9.3 g/dL (12.0-15.0); Immature Grans, Automated 0.3 %; Lymphocytes # (A) 1.24 X 10*3/uL (0.90-5.00); MCH 30.2 pg (27.0-32.0); MCV 94.5 fL (80.0-97.0); Mean Platelet Volume 9.9 fL (9.5-12.2); Monocytes # (A) 0.37 X 10*3/uL (0.20-1.00); Monocytes % (A) 11.3 %; NRBC Per 100 WBC 0 /100 WBCS (0.0-0.0); Neutrophils # (A) 1.47 X 10*3/uL (1.80-7.70); Neutrophils % (A) 45.2 %; Platelet Count 169 X 10*3/uL (140-440); RBC 3.08 X 10*6/uL (4.10-5.20); RDW 13.3 % (11.5-14.5); WBC 3.26 X 10*3/uL (4.50-10.00)
[2021-08-31] MEDS: LACTATED RINGERS 1,000 ML IV SCH (09:11)
[2021-08-31 11:27] LABS: Glucose,Whole Blood 89 mg/dL (70-110)
[2021-08-31] MEDS ORDERED: Magnesium Replacement Protocol 1 EACH MISC MISCELLANE PRN (13:41)
[2021-08-31] MEDS: MAGNESIUM SULFATE-D5W PMX 1 GM in DEXTROSE/WATER 1 100ML.BAG IVPB SCH ×3 (14:04→17:05)
--- NOTE | 2021-08-31 14:12 | P.PN ---
Subjective Progress Note Date: 08/31/21 H&P Date: 08/24/21 Chief Complaint: Right hand swelling and redness This is a pleasant 65-year-old female with past medical history of COPD, ongoing nicotine dependence alcohol abuse,gastroesophageal reflux disease, liver disease, hepatitis C, polysubstance abuse- methamphetamines,crack, cocaine osteoarthritis, generalized anxiety disorder, depression and multiple other medical issues presented to the ER with right hand swelling, redness and pain 4 days. Reports she hit her hand on her dresser, and proceeded to the urgent care who referred her to the emergency room. Blood cultures obtained, IV fluids and IV antibiotics of vancomycin, Rocephin initiated. Vancomycin has since been discontinued . CT of the right hand ordered, pending. Afebrile, normal WBC, hemoglobin 11.3, platelets 143, renal function stable, electrolyte within normal limits, AST 74, ALT 41, CRP 0.8. 08/25/[address] reported nonspecific soft tissue thickening over the dorsal aspect of the hand and wrist with no definite abscess formation or soft tissue gas, underlying soft tissue infection cannot be excluded, no definite fracture identified .Evaluated by infectious disease and orthopedic surgery with recommendations noted. Maintained on vancomycin as per pharmacy dosing. Renal function stable. Continues on IV fluids, sodium 132. Complains of pain, right upper extremity, greatest on the dorsum aspect , proximal to middle finger. MRI of affected extremity pending.Toxicology screen positive for opiates, amphetamines ,methamphetamines and marijuana. Afebrile, normal WBC. CRP initially normal, increased to 1.6 today. Denies chest pain, palpitations or otto rtness of breath. 08/26/21 continues to have significant pain of the right hand, in addition to ext ensive swelling of right upper extremity .Hand MRI reported findings consistent with tenosynovitis. Evaluated by orthopedic surgery and patient is scheduled for I&D with extensor tenolysis today. Denies chest pain, palpitations or shortness of breath. Maintained on vancomycin, renal function stable. T-max 99.1, normal WBC. Preliminary blood cultures apart no growth after 48 hours. 08/27/21 yesterday underwent I&D of dorsal abscess and wrist with excisional debridement of right dorsal hand skin, soft tissue tendon and bone, right wrist fourth dorsal compartment release with tenolysis extensor tendons, arthrotomy radiocarpal joint with exploration and irrigation and drainage, radical excision of lesion, tynosynovitis of intense or tendon sheath fourth dorsal compartment tendons right wrist and biopsy of deep tissue wrist, tolerated procedure well. Positive pain, proximal edema improving. Maintained on vancomycin, IV fluids. Renal function stable. T-max 99.5, WBC within normal limits. Denies chest pain, palpitations or shortness of breath. Maintaining O2 sats in the 90s on room air. 08/28/2021 POD #2,dressing currently off, significant improvement in right hand redness and edema, able to wiggle her fingers easier today. Pain present but improved. T-max 99.3. Maintained on IV antibiotics of cefazolin. Denies chest pain, palpitations or shortness of breath. 08/31/2021 maintained on antibiotics with wound care of Hibiclens soaks, with edema and redness decreasing, increased mobility of right hand digits. Pain present, improving. Wound culture reporting presumptive staph aureus, sensitivities pending .pathology reported negative for malignancy, GMS stain for fungal organisms pending and AFB stain for acid-fast bacilli pending .Afebrile, WBC 3.26. Diffuse chest pain, palpitations or shortness of breath. Blood sugars controlled. Magnesium 1.3, replacement protocol ordered. Objective - Vital Signs Vital signs: Vital Signs Temp 98.1 F 08/31/21 08:00 Pulse 75 08/31/21 08:00 Resp 18 08/31/21 08:00 BP 123/77 08/31/21 08:00 Pulse Ox 99 08/31/21 08:00 FiO2 Intake & Output 08/30/21 08/31/21 08/31/21 18:59 06:59 18:59 Intake Total 1080 1150 Balance 1080 1150 Weight 58.967 kg Intake: Intake, IV Titration 1000 Amount Magnesium Sulfate-D5w Pmx 100 1 gm In Dextrose/Water 1 100ml.bag @ 100 mls/hr IVPB ONCE ONE Rx#: [id number] Sodium Chloride 0.9% 1, 900 000 ml @ 75 mls/hr IV . [id number] [facility] Rx#:[id number] Oral 1080 150 Other: Voiding Method Toilet Toilet # Voids 4 1 - Exam PHYSICAL EXAM: VITAL SIGNS: [As above] GENERAL: Alert and oriented 3, Sitting up in bed, no acute distress HEENT: Conjunctivae normal. eyes normal. MMM. NECK: Supple, No JVD. No LNs CARDIOVASCULAR: S1, S2 regular. No murmur RESPIRATION: Bilateral air entry with diminished bases. ABDOMEN: Soft, nontender . No guarding. no masses palpable. Bowel sounds heard. EXTREMITIES: Status post surgery, tender,continued improvement in edema and erythema, fingers less swollen, warm, able to wiggle each digit, sutures intact, well approximated, no drainage, positive radial pulse, capillary refill brisk. NERVOUS SYSTEM: Cranial N 2-12 grossly normal. No focal deficits. Strength and sensation grossly intact. Skin: Warm and dry, no rash. Microbiology 08/26/21 14:25 Hand - Right Anaerobic Culture - Preliminary Presumptive Staph aureus 08/26/21 14:24 Hand - Right Anaerobic Culture - Preliminary Presumptive Staph aureus 08/23/21 22:55 Blood Blood Culture - Final No Growth after 144 hours 08/23/21 22:40 Blood Blood Culture - Final No Growth after 144 hours 08/26/21 14:24 Hand - Right Gram Stain - Final 08/26/21 14:24 Hand - Right Wound Culture - Final 08/26/21 14:25 Hand - Right Gram Stain - Final 08/26/21 14:25 Hand - Right Wound Culture - Final 08/26/21 14:24 Hand - Right Fungal Culture - Preliminary 08/26/21 14:25 Hand - Right Fungal Culture - Preliminary - Labs CBC & Chem 7: 08/31/21 05:33 08/31/21 05:33 Labs: Abnormal Lab Results - Last 24 Hours (Table) 08/31/21 08/31/21 Range/Units 05:33 05:33 WBC 3.26 L (4.50-10.00) X 10*3/uL RBC 3.08 L (4.10-5.20) X 10*6/uL Hgb 9.3 L (12.0-15.0) g/dL Hct 29.1 L (37.2-46.3) % Neutrophils # 1.47 L (1.80-7.70) X 10*3/uL Creatinine 0.42 L (0.52-1.04) mg/dL Magnesium 1.3 L (1.6-2.3) mg/dL Microbiology - Last 24 Hours (Table) 08/26/21 14:25 Anaerobic Culture - Preliminary Hand - Right Presumptive Staph aureus 08/26/21 14:24 Anaerobic Culture - Preliminary Hand - Right Presumptive Staph aureus Assessment and Plan Assessment: Right hand infection with cellulitis, possible spider bite, possible puncture wound, status post trauma, possible abscess. Hand MRI reporting tenosynovitis. Pyogenic extensor tendon cellulitis right hand, wrist status post I&D dorsal abscess wrist with excisional debridement right hand skin, soft tissue tendon bone; right wrist fourth dorsal compartment release with tenolysis extensor tendons; arthrotomy radiocarpal joint with exploration irrigation and drainage. Preliminary Cultures reporting presumptive staph aureus, final culture pending. Chronic COPD without acute exacerbation Chronic nicotine dependence Chronic alcohol abuse Chronic thrombocytopenia Steatosis, alcoholic Hepatitis C, history of Gastroesophageal reflux disease Marijuana use History of polysubstance abuse, cocaine, meth., crack Toxicology screen reporting opiates ,amphetamines, methamphetamines and THC. Arthritis Generalized anxiety disorder Unspecified Depressive disorder, history of suicide attempt Hypomagnesemia Plan: Continue on current medication regime ,monitoring and symptomatic treatment. Magnesium supplementation ordered. Maintain IV antibiotics, IV fluids. Final cultures pending. Wound care/Pain management as per orthopedic surgery-discussing potential second I&D. The impression and plan of care has been dictated as directed. : I performed a history and examination of this patient, discussed the same with the dictator. I agree with the dictator's note ,documented as a scribe. Any additional findings or plans will be noted.
[2021-08-31 16:18] LABS: Glucose,Whole Blood 121 mg/dL (70-110)
[2021-08-31] MEDS: ATORVASTATIN 40 MG TAB PO SCH (20:34)
[2021-08-31] MEDS: QUEtiapine 25 MG TAB PO PRN (22:34)
--- NOTE | 2021-09-01 00:01 | P.PN ---
Subjective Progress Note Date: 08/30/21 Principal diagnosis: Right hand cellulitis Patient is a 65-year-old female presenting to the hospital for right hand swelling and pain apparently started after the patient hit her hand on the corner of the [place], CT did show cellulitis but no drainable abscess MRI sug gestive of tenosynovitis, patient is status post surgical I&D of the right wrist with the diagnoses of purulent Tenosynovitis on today's evaluation that is 08/30/2021, the patient remains to be afebrile, the patient is still complaining of pain to the right wrist and hand however no worsening, the patient denies any chest pain , shortness of breath or cough no abdominal pain no diarrhea Objective - Vital Signs Vital signs: Vital Signs Temp 98.7 F 08/30/21 14:00 Pulse 74 08/30/21 14:00 Resp 16 08/30/21 14:00 BP 128/62 08/30/21 14:00 Pulse Ox 97 08/30/21 14:00 FiO2 Intake & Output 08/29/21 08/30/21 08/30/21 18:59 06:59 18:59 Intake Total 1080 Balance 1080 Intake: Oral 1080 Other: Voiding Method Toilet Toilet Toilet # Voids 3 4 - Exam GENERAL DESCRIPTION: An elderly male lying in bed in no distress RESPIRATORY SYSTEM: Unlabored breathing , decreased breath sounds at bases HEART: S1 S2 regular rate and rhythm , ABDOMEN: Soft , no tenderness EXTREMITIES: Right hand and wrist is currently dressed no drainage on the dressing - Labs CBC & Chem 7: 08/31/21 05:33 08/31/21 05:33 Labs: Abnormal Lab Results - Last 24 Hours (Table) 08/29/21 08/30/21 08/30/21 Range/Units 20:35 05:25 05:25 WBC 3.60 L (4.50-10.00) X 10*3/uL RBC 3.03 L (4.10-5.20) X 10*6/uL Hgb 9.1 L (12.0-15.0) g/dL Hct 28.4 L (37.2-46.3) % Neutrophils # 1.78 L (1.80-7.70) X 10*3/uL Potassium 3.1 L (3.5-5.5) mmol/L BUN 7.0 L (9.0-27.0) mg/dL Creatinine 0.4 L (0.6-1.5) mg/dL POC Glucose (mg/dL) 118 H (70-110) mg/dL Calcium 8.3 L (8.7-10.3) mg/dL Magnesium 1.4 L (1.5-2.4) mg/dL Microbiology - Last 24 Hours (Table) 08/26/21 14:25 Anaerobic Culture - Preliminary Hand - Right Presumptive Staph aureus 08/26/21 14:24 Anaerobic Culture - Preliminary Hand - Right Presumptive Staph aureus 08/23/21 22:55 Blood Culture - Final Blood No Growth after 144 hours 08/23/21 22:40 Blood Culture - Final Blood No Growth after 144 hours Assessment and Plan (1) Cellulitis of hand, right Current Visit: Yes Status: Acute Code(s): L03.113 - CELLULITIS OF RIGHT UPPER LIMB SNOMED Code(s): 77158053 Plan: 1patient presented hospital with right hand swelling did have redness started with a trauma about 4 days ago and now concerning for possible underlying hematoma versus cellulitis/abscess in this patient currently with no fever or elevated white count will be more concern of traumatic injury rather than infection such as an abscess but not entirely excluded. 2 the MRI of the wrist did show tenosynovitis and patient is status post surgical I&D on 08/26/2021 with a culture so far negative for resistant pathogen 3patient is currently being treated with cefazolin 2 g every 8 hours and continue supportive care Time with Patient: Less than 30
--- NOTE | 2021-09-01 00:02 | P.PN ---
Subjective Progress Note Date: 08/31/21 Principal diagnosis: Right hand cellulitis Patient is a 65-year-old female presenting to the hospital for right hand swelling and pain apparently started after the patient hit her hand on the corner of the [place], CT did show cellulitis but no drainable abscess MRI sug gestive of tenosynovitis, patient is status post surgical I&D of the right wrist with the diagnoses of purulent Tenosynovitis on today's evaluation that is 08/31/2021, the patient denies any fever or chills, the patient denies any worsening pain to the right wrist and hand, the patient denies any chest pain , shortness of breath or cough no abdominal pain no diarrhea Objective - Vital Signs Vital signs: Vital Signs Temp 98.2 F 08/31/21 13:49 Pulse 68 08/31/21 13:49 Resp 18 08/31/21 13:49 BP 133/69 08/31/21 13:49 Pulse Ox 96 08/31/21 13:49 FiO2 Intake & Output 08/30/21 08/31/21 08/31/21 18:59 06:59 18:59 Intake Total 1080 1150 Balance 1080 1150 Weight 58.967 kg Intake: Intake, IV Titration 1000 Amount Magnesium Sulfate-D5w Pmx 100 1 gm In Dextrose/Water 1 100ml.bag @ 100 mls/hr IVPB ONCE ONE Rx#: [id number] Sodium Chloride 0.9% 1, 900 000 ml @ 75 mls/hr IV . [id number] [facility] Rx#:[id number] Oral 1080 150 Other: Voiding Method Toilet Toilet # Voids 4 1 - Exam GENERAL DESCRIPTION: An elderly male lying in bed in no distress RESPIRATORY SYSTEM: Unlabored breathing , decreased breath sounds at bases HEART: S1 S2 regular rate and rhythm , ABDOMEN: Soft , no tenderness EXTREMITIES: Right hand and wrist is currently dressed no drainage on the dressing - Labs CBC & Chem 7: 08/31/21 05:33 08/31/21 05:33 Labs: Abnormal Lab Results - Last 24 Hours (Table) 08/31/21 08/31/21 Range/Units 05:33 05:33 WBC 3.26 L (4.50-10.00) X 10*3/uL RBC 3.08 L (4.10-5.20) X 10*6/uL Hgb 9.3 L (12.0-15.0) g/dL Hct 29.1 L (37.2-46.3) % Neutrophils # 1.47 L (1.80-7.70) X 10*3/uL Creatinine 0.42 L (0.52-1.04) mg/dL Magnesium 1.3 L (1.6-2.3) mg/dL Microbiology - Last 24 Hours (Table) 08/26/21 14:25 Anaerobic Culture - Preliminary Hand - Right Presumptive Staph aureus 08/26/21 14:24 Anaerobic Culture - Preliminary Hand - Right Presumptive Staph aureus Assessment and Plan (1) Cellulitis of hand, right Current Visit: Yes Status: Acute Code(s): L03.113 - CELLULITIS OF RIGHT UPPER LIMB SNOMED Code(s): 27521897 Plan: 1patient presented hospital with right hand swelling did have redness started with a trauma about 4 days ago and now concerning for possible underlying hematoma versus cellulitis/abscess in this patient currently with no fever or elevated white count will be more concern of traumatic injury rather than infe ction such as an abscess but not entirely excluded. 2 the MRI of the wrist did show tenosynovitis and patient is status post surgical I&D on 08/26/2021 with a culture has been finalized as MSSA after 5 days 3patient seem to have shown clinical improvement with cefazolin 2 g every 8 hours for another 2 weeks on discharge to finish her course of therapy Time with Patient: Less than 30
[2021-09-01] MEDS: HYDROmorphone 0.5 MG/0.5 ML SYRINGE IVP PRN ×2 (02:36→08:22)
[2021-09-01] MEDS: HYDROcodone/APAP 5-325MG 1 EACH TAB PO SCH ×4 (05:11→23:00)
[2021-09-01] MEDS: HEPARIN SODIUM,PORCINE/PF 5,000 UNIT/0.5 ML SYRINGE SQ SCH ×2 (08:21→20:01)
[2021-09-01] MEDS: CYANOCOBALAMIN 500 MCG TAB PO SCH (08:22)
[2021-09-01] MEDS: PANTOPRAZOLE 40 MG/10 ML VIAL IVP SCH (08:22)
[2021-09-01] MEDS: ESCITALOPRAM 20 MG TAB PO SCH (08:22)
[2021-09-01] MEDS: SODIUM CHLORIDE 0.9% 1,000 ML IV SCH ×2 (08:23→23:52)
[2021-09-01 11:49] LABS: Glucose,Whole Blood 101 mg/dL (70-110)
--- NOTE | 2021-09-01 12:57 | P.PN ---
Subjective Progress Note Date: 09/01/21 Principal diagnosis: 1. Pyogenic extensor tenosynovitis right hand/wrist 2. Cellulitis Right hand Patient was seen at bedside this morning resting comfortably in semirecumbent position with incision on RUE open to air. Patient says she is seeing improvement as there is decreased swelling in her hand/wrist. Patient says she is able to move her fingers a little bit better today and can flex/extend her right wrist a bit. Patient says she does notice some decreased swelling in her digits as well. Patient says she has been doing Hibiclens soaks 3 times a day. Patient denies chest pain, fever, shortness of breath, nausea, vomiting, change in vision, loss/bladder control. Objective - Vital Signs Vital signs: Vital Signs Temp 98.4 F 09/01/21 08:00 Pulse 71 09/01/21 08:00 Resp 16 09/01/21 08:00 BP 162/87 09/01/21 08:00 Pulse Ox 97 09/01/21 08:00 FiO2 Intake & Output 08/31/21 09/01/21 09/01/21 18:59 06:59 18:59 Intake Total 700 Balance 700 Weight 58.967 kg Intake: Oral 700 Other: Voiding Method Toilet # Voids 1 1 - Exam inspection: Minimal swelling in the digits of RUE. Incision appears to be healing well. Negative for any drainage/purulence. Fair amount of swelling to dorsum of right hand/wrist. Area of erythema over dorsum of right hand appears to decreasing. sutures well aligned and intact. Patient to continue hibiclens soaks TID for 15 mins at a time. Incision to be covered with adaptic, 4x4's, ABD's and kerlix. Sensation: equal, symmetric, bilaterally intact throughout the upper and lower extremities Palpation: moderate TTP along dorsum of right hand. NTTP throughout rest of exam. ROM: limited/decreased ROM in right wrist due to pain and swelling. Patient does note and sees improvement in extension in digits 2-4 in RUE, but still lacking full extension. FROM in BLE and rest of RUE and all of LUE. Motor: Sanitation Technician strength 2+/5 in right hand. flexion/extension of right wrist 3/5 due to pain. 4+/5 in all other major motor groups Neurovascular: intact bilaterally. radial pulses 2+ bilaterally. cap refill <3 seconds in digits of upper extremities special tests: negative Homans bilaterally - Labs CBC & Chem 7: 08/31/21 05:33 08/31/21 05:33 Labs: Abnormal Lab Results - Last 24 Hours (Table) 08/31/21 Range/Units 16:17 POC Glucose (mg/dL) 121 H (70-110) mg/dL Microbiology - Last 24 Hours (Table) 08/26/21 14:24 Anaerobic Culture - Final Hand - Right Staphylococcus aureus Assessment and Plan Assessment: 1. Pyogenic extensor tenosynovitis right hand/wrist 2. Cellulitis Right hand Postoperative day 6 status post I&D dorsal abscess wrist with excisional debridement right hand skin, soft tissue tendon bone; right wrist fourth dorsal compartment release with tenolysis extensor tendons; arthrotomy radiocarpal joint with exploration irrigation and drainage Plan: 1. Pyogenic extensor tenosynovitis right hand/wrist; Cellulitis Right hand - surgery performed 08/26/2021 - I&D dorsal abscess wrist with excisional debridement right hand skin, soft tissue tendon bone; right wrist fourth dorsal compartment release with tenolysis extensor tendons; arthrotomy radiocarpal joint with exploration irrigation and drainage. Fair amount of swelling which is decreasing daily in the dorsum of hand of RUE. Incision appears to be healing well at this time. Negative for any drainage. Positive for erythema to dorsum of right hand. sutures well aligned and intact. Patient to continue hibiclens soaks TID for 15 mins at a time. Incision may be left open to air or covered with adaptic, 4x4', ABD and kerlix. Continue Cefazolin for now. NWB RUE. Final cultures showing MSSA. Sensitivity in. Patient stable for discharge from orthopedic standpoint. We recommend patient to follow up in office with Dr. Sandra in 10 days. 2. Appreciate medical and ID management - discharge ABX recs 3. Pain management - [place]; Tylenol; dilaudid only if necessary 4. DVT ppx - mechanical 5. GI ppx - Protonix 6. PT/OT - NWB RUE Time with Patient: Less than 30
--- NOTE | 2021-09-01 15:56 | P.PN ---
Subjective Progress Note Date: 09/01/21 H&P Date: 08/24/21 Chief Complaint: Right hand swelling and redness This is a pleasant 65-year-old female with past medical history of COPD, ongoing nicotine dependence alcohol abuse,gastroesophageal reflux disease, liver disease, hepatitis C, polysubstance abuse- methamphetamines,crack, cocaine osteoarthritis, generalized anxiety disorder, depression and multiple other medical issues presented to the ER with right hand swelling, redness and pain 4 days. Reports she hit her hand on her dresser, and proceeded to the urgent care who referred her to the emergency room. Blood cultures obtained, IV fluids and IV antibiotics of vancomycin, Rocephin initiated. Vancomycin has since been discontinued . CT of the right hand ordered, pending. Afebrile, normal WBC, hemoglobin 11.3, platelets 143, renal function stable, electrolyte within normal limits, AST 74, ALT 41, CRP 0.8. 08/25/[address] reported nonspecific soft tissue thickening over the dorsal aspect of the hand and wrist with no definite abscess formation or soft tissue gas, underlying soft tissue infection cannot be excluded, no definite fracture identified .Evaluated by infectious disease and orthopedic surgery with recommendations noted. Maintained on vancomycin as per pharmacy dosing. Renal function stable. Continues on IV fluids, sodium 132. Complains of pain, right upper extremity, greatest on the dorsum aspect , proximal to middle finger. MRI of affected extremity pending.Toxicology screen positive for opiates, amphetamines ,methamphetamines and marijuana. Afebrile, normal WBC. CRP initially normal, increased to 1.6 today. Denies chest pain, palpitations or otto rtness of breath. 08/26/21 continues to have significant pain of the right hand, in addition to ext ensive swelling of right upper extremity .Hand MRI reported findings consistent with tenosynovitis. Evaluated by orthopedic surgery and patient is scheduled for I&D with extensor tenolysis today. Denies chest pain, palpitations or shortness of breath. Maintained on vancomycin, renal function stable. T-max 99.1, normal WBC. Preliminary blood cultures apart no growth after 48 hours. 08/27/21 yesterday underwent I&D of dorsal abscess and wrist with excisional debridement of right dorsal hand skin, soft tissue tendon and bone, right wrist fourth dorsal compartment release with tenolysis extensor tendons, arthrotomy radiocarpal joint with exploration and irrigation and drainage, radical excision of lesion, tynosynovitis of intense or tendon sheath fourth dorsal compartment tendons right wrist and biopsy of deep tissue wrist, tolerated procedure well. Positive pain, proximal edema improving. Maintained on vancomycin, IV fluids. Renal function stable. T-max 99.5, WBC within normal limits. Denies chest pain, palpitations or shortness of breath. Maintaining O2 sats in the 90s on room air. 08/28/2021 POD #2,dressing currently off, significant improvement in right hand redness and edema, able to wiggle her fingers easier today. Pain present but improved. T-max 99.3. Maintained on IV antibiotics of cefazolin. Denies chest pain, palpitations or shortness of breath. 08/31/2021 maintained on antibiotics with wound care of Hibiclens soaks, with edema and redness decreasing, increased mobility of right hand digits. Pain present, improving. Wound culture reporting presumptive staph aureus, sensitivities pending .pathology reported negative for malignancy, GMS stain for fungal organisms pending and AFB stain for acid-fast bacilli pending .Afebrile, WBC 3.26. Diffuse chest pain, palpitations or shortness of breath. Blood sugars controlled. Magnesium 1.3, replacement protocol ordered. 09/01/2021 maintained on antibiotics, Hibiclens soaks with significant clinical improvement. Decreased edema and redness, wiggling her fingers a little bit easier today. Complains of limited wrist movement. Denies chest pain, palpitations or shortness of breath. Denies lightheadedness, dizziness or focal deficits. Afebrile. Blood sugars controlled. Magnesium 1.7 with replacement protocol in place. Objective - Vital Signs Vital signs: Vital Signs Temp 98.4 F 09/01/21 08:00 Pulse 71 09/01/21 08:00 Resp 16 09/01/21 08:00 BP 162/87 09/01/21 08:00 Pulse Ox 97 09/01/21 08:00 FiO2 Intake & Output 08/31/21 09/01/21 09/01/21 18:59 06:59 18:59 Intake Total 700 Balance 700 Weight 58.967 kg Intake: Oral 700 Other: Voiding Method Toilet # Voids 1 1 - Exam PHYSICAL EXAM: VITAL SIGNS: [As above] GENERAL: Alert and oriented 3, Sitting up in bed, no acute distress HEENT: Conjunctivae normal. eyes normal. MMM. NECK: Supple, No JVD. No LNs CARDIOVASCULAR: S1, S2 regular. No murmur RESPIRATION: Bilateral air entry with diminished bases. ABDOMEN: Soft, nontender . No guarding. no masses palpable. Bowel sounds heard. EXTREMITIES: Status post surgery, tender,continued improvement in edema and erythema, finger mobility improved, sutures intact, well approximated, no drainage, positive radial pulse, capillary refill brisk. NERVOUS SYSTEM: Cranial N 2-12 grossly normal. No focal deficits. Strength and sensation grossly intact. Skin: Warm and dry, no rash. Microbiology 08/26/21 14:24 Hand - Right Anaerobic Culture - Final Staphylococcus aureus 08/26/21 14:25 Hand - Right Anaerobic Culture - Preliminary Presumptive Staph aureus 08/23/21 22:55 Blood Blood Culture - Final No Growth after 144 hours 08/23/21 22:40 Blood Blood Culture - Final No Growth after 144 hours 08/26/21 14:24 Hand - Right Gram Stain - Final 08/26/21 14:24 Hand - Right Wound Culture - Final 08/26/21 14:25 Hand - Right Gram Stain - Final 08/26/21 14:25 Hand - Right Wound Culture - Final 08/26/21 14:24 Hand - Right Fungal Culture - Preliminary 08/26/21 14:25 Hand - Right Fungal Culture - Preliminary - Labs CBC & Chem 7: 08/31/21 05:33 08/31/21 05:33 Labs: Abnormal Lab Results - Last 24 Hours (Table) 08/31/21 Range/Units 16:17 POC Glucose (mg/dL) 121 H (70-110) mg/dL Microbiology - Last 24 Hours (Table) 08/26/21 14:24 Anaerobic Culture - Final Hand - Right Staphylococcus aureus Assessment and Plan Assessment: Right hand infection with cellulitis, possible spider bite, possible puncture wound, status post trauma, possible abscess. Hand MRI reporting tenosynovitis. Pyogenic extensor tendon cellulitis right hand, wrist status post I&D dorsal abscess wrist with excisional debridement right hand skin, soft tissue tendon bone; right wrist fourth dorsal compartment release with tenolysis extensor tendons; arthrotomy radiocarpal joint with exploration irrigation and drainage. Preliminary Cultures reporting presumptive staph aureus, final anaero bic culture reporting MSSA. Chronic COPD without acute exacerbation Chronic nicotine dependence Chronic alcohol abuse Chronic thrombocytopenia Steatosis, alcoholic Hepatitis C, history of Gastroesophageal reflux disease Marijuana use History of polysubstance abuse, cocaine, meth., crack Toxicology screen reporting opiates ,amphetamines, methamphetamines and THC. Arthritis Generalized anxiety disorder Unspecified Depressive disorder, history of suicide attempt Hypomagnesemia Plan: Continue on current medication regime ,monitoring and symptomatic treatment. Fungal cultures pending.Maintain IV antibiotics, IV fluids. Wound care/Pain management as per orthopedic surgery. Discharge planning in progress pending final DC recommendations and clearance per orthopedic surgery and infectious disease. The impression and plan of care has been dictated as directed. : I performed a history and examination of this patient, discussed the same with the dictator. I agree with the dictator's note ,documented as a scribe. Any additional findings or plans will be noted.
[2021-09-01] MEDS ORDERED: HYDROcodone/APAP 5-325MG 1 EACH TAB PO STA (16:01)
[2021-09-01] MEDS: LACTATED RINGERS 1,000 ML IV SCH (16:37)
[2021-09-01 17:11] LABS: Glucose,Whole Blood 107 mg/dL (70-110)
[2021-09-01] MEDS: ATORVASTATIN 40 MG TAB PO SCH (20:01)
[2021-09-01] MEDS: QUEtiapine 25 MG TAB PO PRN (21:34)
[2021-09-02] MEDS: HYDROcodone/APAP 5-325MG 1 EACH TAB PO SCH ×2 (05:13→11:53)
[2021-09-02 07:01] LABS: Glucose,Whole Blood 86 mg/dL (70-110)
[2021-09-02] MEDS: HEPARIN SODIUM,PORCINE/PF 5,000 UNIT/0.5 ML SYRINGE SQ SCH (08:29)
[2021-09-02] MEDS: PANTOPRAZOLE 40 MG/10 ML VIAL IVP SCH (08:29)
[2021-09-02] MEDS: CYANOCOBALAMIN 500 MCG TAB PO SCH (08:30)
[2021-09-02] MEDS: ESCITALOPRAM 20 MG TAB PO SCH (08:30)
[2021-09-02 09:10] LABS: Basophils # (A) 0.03 X 10*3/uL (0.00-0.10); Eosinophils # (A) 0.16 X 10*3/uL (0.04-0.35); Eosinophils % (A) 5.3 %; HCT 25.3 % (37.2-46.3); HGB 9.1 g/dL (12.0-15.0); Immature Grans, Automated 0.3 %; Lymphocytes # (A) 1.19 X 10*3/uL (0.90-5.00); Lymphocytes % (A) 39.1 %; MCH 34.2 pg (27.0-32.0); MCV 95.1 fL (80.0-97.0); Mean Platelet Volume 10.2 fL (9.5-12.2); Monocytes # (A) 0.33 X 10*3/uL (0.20-1.00); Monocytes % (A) 10.9 %; NRBC Per 100 WBC 0 /100 WBCS (0.0-0.0); Neutrophils # (A) 1.32 X 10*3/uL (1.80-7.70); Neutrophils % (A) 43.4 %; Platelet Count 152 X 10*3/uL (140-440); RBC 2.66 X 10*6/uL (4.10-5.20); RDW 13.3 % (11.5-14.5); WBC 3.04 X 10*3/uL (4.50-10.00)
[2021-09-02 09:15] LABS: African American GFR (CKD) 122.6 (60.0-200.0); BUN/Creat Ratio 16.83 Ratio (12.00-20.00); Blood Urea Nitrogen 7.6 mg/dL (9.0-27.0); Calcium 8.8 mg/dL (8.7-10.3); Carbon Dioxide 23.7 mmol/L (20.0-27.5); Magnesium 1.5 mg/dL (1.5-2.4); Non-African American GFR(CKD) 105.8 (60.0-200.0); Potassium 3.6 mmol/L (3.5-5.5)
[2021-09-02 10:35] LABS: Glucose,Whole Blood 68 mg/dL (70-110)
--- NOTE | 2021-09-02 11:28 | P.PN ---
Subjective Progress Note Date: 09/02/21 Principal diagnosis: 1. Pyogenic extensor tenosynovitis right hand/wrist 2. Cellulitis Right hand Patient was seen at bedside this morning resting comfortably in semirecumbent position with incision on RUE open to air. Patient says she is seeing improvement as there is decreased swelling in her hand/wrist. Patient says she is able to move her fingers a little bit better today and can flex/extend her right wrist a bit. Patient does have Midline in place on LUE. Patient says she is looking forward to going home. Patient says she does notice some decreased swelling in her digits as well. Patient says she has been doing Hibiclens soaks 3 times a day. Patient denies chest pain, fever, shortness of breath, nausea, vomiting, change in vision, loss/bladder control. Objective - Vital Signs Vital signs: Vital Signs Temp 98.7 F 09/02/21 08:10 Pulse 63 09/02/21 08:10 Resp 18 09/02/21 08:10 BP 141/78 09/02/21 08:10 Pulse Ox 97 09/02/21 08:10 FiO2 Intake & Output 09/01/21 09/02/21 09/02/21 18:59 06:59 18:59 Intake Total 250 Balance 250 Intake: Intake, IV Titration 50 Amount ceFAZolin 2 gm In Sodium 50 Chloride 0.9% 50 ml @ 100 mls/hr IVPB Q8HR [facility] Rx# :[id number] Oral 200 Other: Voiding Method Toilet # Voids 1 3 - Exam inspection: Minimal swelling in the digits of RUE. Incision appears to be healing well. Negative for any drainage/purulence. Fair amount of swelling to dorsum of right hand/wrist. Area of erythema over dorsum of right hand appears t o decreasing. sutures well aligned and intact. Patient to continue hibiclens soaks TID for 15 mins at a time. Incision to be covered with adaptic, 4x4's, ABD's and kerlix. Sensation: equal, symmetric, bilaterally intact throughout the upper and lower extremities Palpation: moderate TTP along dorsum of right hand. NTTP throughout rest of exam. ROM: limited/decreased ROM in right wrist due to pain and swelling. Patient does note and sees improvement in extension in digits 2-4 in RUE, but still lacking full extension. FROM in BLE and rest of RUE and all of LUE. Motor: Maintenance Repairer strength 2+/5 in right hand. flexion/extension of right wrist 3/5 due to pain. 4+/5 in all other major motor groups Neurovascular: intact bilaterally. radial pulses 2+ bilaterally. cap refill <3 seconds in digits of upper extremities special tests: negative Homans bilaterally - Labs CBC & Chem 7: 09/02/21 06:23 09/02/21 06:23 Labs: Abnormal Lab Results - Last 24 Hours (Table) 09/02/21 09/02/21 Range/Units 06:23 06:23 WBC 3.04 L (4.50-10.00) X 10*3/uL RBC 2.66 L (4.10-5.20) X 10*6/uL Hgb 9.1 L (12.0-15.0) g/dL Hct 25.3 L (37.2-46.3) % MCH 34.2 H (27.0-32.0) pg Neutrophils # 1.32 L (1.80-7.70) X 10*3/uL BUN 7.6 L (9.0-27.0) mg/dL Creatinine 0.5 L (0.6-1.5) mg/dL Assessment and Plan Assessment: 1. Pyogenic extensor tenosynovitis right hand/wrist 2. Cellulitis Right hand Postoperative day 7 status post I&D dorsal abscess wrist with excisional debridement right hand skin, soft tissue tendon bone; right wrist fourth dorsal compartment release with tenolysis extensor tendons; arthrotomy radiocarpal joint with exploration irrigation and drainage Plan: 1. Pyogenic extensor tenosynovitis right hand/wrist; Cellulitis Right hand - surgery performed 08/26/2021 - I&D dorsal abscess wrist with excisional debridement right hand skin, soft tissue tendon bone; right wrist f ourth dorsal compartment release with tenolysis extensor tendons; arthrotomy radiocarpal joint with exploration irrigation and drainage. Fair amount of swelling which is decreasing daily in the dorsum of hand of RUE. Incision appears to be healing well at this time. Negative for any drainage. Positive for erythema to dorsum of right hand. sutures well aligned and intact. Patient to continue hibiclens soaks TID for 15 mins at a time. Incision may be left open to air or covered with adaptic, 4x4', ABD and kerlix. Continue Cefazolin for now. NWB RUE. Final cultures showing MSSA. Sensitivity in. Midline in place. Patient stable for discharge from orthopedic standpoint. Orthopedics is signing off at this time. Please do not hesitate to contact us for any further questions. We recommend patient to follow up in office with Dr. Sandra in 10 days. 2. Appreciate medical and ID management - discharge ABX recs 3. Pain management - [place]; Tylenol; dilaudid only if necessary 4. DVT ppx - mechanical 5. GI ppx - Protonix 6. PT/OT - NWB RUE Time with Patient: Less than 30
[2021-09-02 11:45] LABS: Glucose,Whole Blood 94 mg/dL (70-110)
[2021-09-02 14:05] VITALS: BP 118/76; PULSE 70; RESP 16; TEMP 98
--- NOTE | 2021-09-02 14:29 | P.PN ---
Progress Note - Text Progress Note Date: 09/02/21 [facility] Progress Note SUBJECTIVE: Patient seen and examined she is doing much better today her swelling continues to decrease erythema continues decrease and she is sitting up at bedside with her clothes on and states she is ready to go home. She denies any fevers chills shortness of breath or chest pain overnight. She denies any other symptoms. There is no numbness or tingling in her hand and that she can move it better. OBJECTIVE: No signs stable at this time General: AOX3, NAD Incision CDI Erythema decreasing swelling decreasing right upper extremity No tenderness to palpation along the flexor sheath or palmar surface at this time Motor Exam: + Motor to median radial and ulnar nerves of bilateral upper extremities she has decreased range of motion. He DIP joints as well as the wrist secondary to her swelling over is improving. Reflexes: 2/4 in UE and LE b/l SILT C5-T1 and L2-S1 +distal pulses palpable Compartments soft and compressible ASSESSMENT: 65-year-old female with pyogenic extensor tenosynovitis status post incision and drainage with irrigation and debridement PLAN: 1. Orthopedically stable for discharge 2. To knee with ID follow-up for antibiotics and IV antibiotics long-term 3. PT OT and hand therapy daily 4. TEDs, SCDs, Early ambulation 5. Pain medication as needed 6. Follow-up in 10 days in the office
[2021-09-02] MEDS: SODIUM CHLORIDE 0.9% 1,000 ML IV SCH (15:14)
[2021-09-02 16:06] LABS: Glucose,Whole Blood 94 mg/dL (70-110)
--- NOTE | 2021-09-02 17:21 | P.DS ---
Providers Date of admission: 08/24/21 00:07 Expected date of discharge: 09/02/21 Attending physician: Danny Pedersen MD Consults: 08/23/21 23:44 Consult Physician Routine Consulting Provider: Chriss Sandra Consult Reason/Comments: severe right hand cellulitis with concern for flexor tensoynovitis Do you want consulting provider notified?: Yes Consult Physician Routine Consulting Provider: Michi Liz Consult Reason/Comments: severe right hand cellulitis, consult requested by ortho Do you want consulting provider notified?: Yes Primary care physician: Danny Pedersen MD Hospital Course: Final Diagnoses: Right hand infection with cellulitis, possible spider bite, possible puncture wound, status post trauma, possible abscess. Hand MRI reporting tenosynovitis. Pyogenic extensor tendon cellulitis right hand, wrist status post I&D dorsal abscess wrist with excisional debridement right hand skin, soft tissue tendon bone; right wrist fourth dorsal compartment release with tenolysis extensor tendons; arthrotomy radiocarpal joint with exploration irrigation and drainage. Preliminary Cultures reporting presumptive staph aureus, final anaerobic culture reporting MSSA. Chronic COPD without acute exacerbation Chronic nicotine dependence Chronic alcohol abuse Chronic thrombocytopenia Steatosis, alcoholic Hepatitis C, history of Gastroesophageal reflux disease Marijuana use History of polysubstance abuse, cocaine, meth., crack Toxicology screen reporting opiates ,amphetamines, methamphetamines and THC. Arthritis Generalized anxiety disorder Unspecified Depressive disorder, history of suicide attempt Hypomagnesemia, resolved Hospital course:This is a pleasant 65-year-old female with past medical history of COPD, ongoing nicotine dependence alcohol abuse,gastroesophageal reflux disease, liver disease, hepatitis C, polysubstance abuse- methamphetamines,crack, cocaine osteoarthritis, generalized anxiety disorder, depression and multiple other medical issues presented to the ER with right hand swelling, redness and pain 4 days. Reports she hit her hand on her dresser, and proceeded to the urgent care who referred her to the emergency room. Blood cultures obtained, IV fluids and IV antibiotics of vancomycin, Rocephin initiated. Vancomycin has since been discontinued . CT of the right hand ordered, pending. Afebrile, normal WBC, hemoglobin 11.3, platelets 143, renal function stable, electrolyte within normal limits, AST 74, ALT 41, CRP 0.8. 08/25/[address] reported nonspecific soft tissue thickening over the dorsal aspect of the hand and wrist with no definite abscess formation or soft tissue gas, underlying soft tissue infection cannot be excluded, no definite fracture identified .Evaluated by infectious disease and orthopedic surgery with recommendations noted. Maintained on vancomycin as per pharmacy dosing. Renal function stable. Continues on IV fluids, sodium 132. Complains of pain, right u pper extremity, greatest on the dorsum aspect , proximal to middle finger. MRI of affected extremity pending.Toxicology screen positive for opiates, amphetamines ,methamphetamines and marijuana. Afebrile, normal WBC. CRP initially normal, increased to 1.6 today. Denies chest pain, palpitations or shortness of breath. 08/26/21 continues to have significant pain of the right hand, in addition to extensive swelling of right upper extremity .Hand MRI reported findings consistent with tenosynovitis. Evaluated by orthopedic surgery and patient is scheduled for I&D with extensor tenolysis today. Denies chest pain, palpitations or shortness of breath. Maintained on vancomycin, renal function stable. T-max 99.1, normal WBC. Preliminary blood cultures apart no growth after 48 hours. 08/27/21 yesterday underwent I&D of dorsal abscess and wrist with excisional debridement of right dorsal hand skin, soft tissue tendon and bone, right wrist fourth dorsal compartment release with tenolysis extensor tendons, arthrotomy radiocarpal joint with exploration and irrigation and drainage, radical excision of lesion, tynosynovitis of intense or tendon sheath fourth dorsal compartment tendons right wrist and biopsy of deep tissue wrist, tolerated procedure well. Positive pain, proximal edema improving. Maintained on vancomycin, IV fluids. Renal function stable. T-max 99.5, WBC within normal limits. Denies chest pain, palpitations or shortness of breath. Maintaining O2 sats in the 90s on room air. 08/28/2021 POD #2,dressing currently off, significant improvement in right hand redness and edema, able to wiggle her fingers easier today. Pain present but improved. T-max 99.3. Maintained on IV antibiotics of cefazolin. Denies chest pain, palpitations or shortness of breath. 08/31/2021 maintained on antibiotics with wound care of Hibiclens soaks, with edema and redness decreasing, increased mobility of right hand digits. Pain present, improving. Wound culture reporting presumptive staph aureus, sensitivities pending .pathology reported negative for malignancy, GMS stain for fungal organisms pending and AFB stain for acid-fast bacilli pending .Afebrile, WBC 3.26. Diffuse chest pain, palpitations or shortness of breath. Blood sugars controlled. Magnesium 1.3, replacement protocol ordered. 09/01/2021 maintained on antibiotics, Hibiclens soaks with significant clinical improvement. Decreased edema and redness, wiggling her fingers a little bit easier today. Complains of limited wrist movement. Denies chest pain, palpitations or shortness of breath. Denies lightheadedness, dizziness or focal deficits. Afebrile. Blood sugars controlled. Magnesium 1.7 with replacement protocol in place. Significant clinical improvement. Cleared by orthopedic surgery for discharge. Patient will be discharged home today in stable condition with guarded prognosis pending DC recommendations/antibiotics as per infectious disease. Midline placed yesterday. Pain better controlled. Continued increased flexibility of right wrist, hand and digits. Denies chest pain, palpitations or shortness of breath. Denies lightheadedness, dizziness or focal deficits. Patient advised to purchase probiotics [id number]/consume yogurt. The impression and plan of care has been dictated as directed. : I performed a history and examination of this patient, discussed the same with the dictator. I agree with the dictator's note ,documented as a scribe. Any additional findings or plans will be noted. Patient Condition at Discharge: Stable Plan - Discharge Summary Discharge Rx Participant: No New Discharge Prescriptions: New Sennosides-Docusate Sodium [Senokot-S] 2 tab PO HS #1 tablet HYDROcodone/APAP 5-325MG [[place] 5-325] 1 each PO Q6HR PRN #12 tab PRN Reason: Pain Continue QUEtiapine [SEROquel] 25 mg PO HS PRN PRN Reason: Insomnia Clopidogrel [Plavix] 75 mg PO DAILY Atorvastatin [Lipitor] 40 mg PO HS rOPINIRole HCL [Requip] 1 mg PO HS Escitalopram [Lexapro] 20 mg PO DAILY Ergocalciferol [Vitamin D2 (1250 Mcg = 97834 Iu)] 1,250 mcg PO TH Cyanocobalamin (Vitamin B-12) [Vitamin B-12] 1,000 mcg PO DAILY Discharge Medication List Atorvastatin [Lipitor] 40 mg PO HS 08/24/21 [History] Clopidogrel [Plavix] 75 mg PO DAILY 08/24/21 [History] Cyanocobalamin (Vitamin B-12) [Vitamin B-12] 1,000 mcg PO DAILY 08/24/21 [History] Ergocalciferol [Vitamin D2 (1250 Mcg = 54838 Iu)] 1,250 mcg PO TH 08/24/21 [History] Escitalopram [Lexapro] 20 mg PO DAILY 08/24/21 [History] QUEtiapine [SEROquel] 25 mg PO HS PRN 08/24/21 [History] rOPINIRole HCL [Requip] 1 mg PO HS 08/24/21 [History] HYDROcodone/APAP 5-325MG [[place] 5-325] 1 each PO Q6HR PRN #12 tab 09/02/21 [Rx] Sennosides-Docusate Sodium [Senokot-S] 2 tab PO HS #1 tablet 09/02/21 [Rx] Follow up Appointment(s)/Referral(s): Danny Pedersen MD [Primary Care Provider] - 09/04/21 10:30 am [facility], [NON-STAFF] - ([facility] will call you to confirm your visit for tomorrow between 8-9 am. ) [facility], [REFERRING] - As Needed ([facility] will deliver supplies to your house this evening. ) Chriss Sandra DO [Doctor of Osteopathic Medicine] - 09/16/21 1:30 pm (Please arrive at 1:15 p.m. to fill out paperwork. Thank you.) Michi Liz MD [STAFF PHYSICIAN] - 1 Week Patient Instructions/Handouts: Cellulitis (GEN), Removal of a Central Line, PICC, or Midline Catheter (DC), Incision and Drainage (DC), How to Flush Your Midline Catheter (DC) Activity/Diet/Wound Care/Special Instructions: Orthopedic Discharge Instructions: 1. Wound care and infection precautions -may keep incision open to air. May shower over incision. Do not submerge incision in hot tub/pool. May cover incision with non-stick dressing and tape. 2. Partial weightbearing RUE. Encouraged to flex/extend right wrist/digits in hand. Do not lift >5 lbs. 3. Ice and elevate when necessary. Do not exceed 20 minutes per hour with ice pack. 4. Pain meds per prescription. 5. Pain medication has potential to cause constipation. Increase oral fluid and fiber intake. Contact primary care provider if you have not had a bowel movement within 48 hours after discharge. 6. Follow up in office at [address] Chriss Sandra 7. Follow up with your primary care doctor within 7 days after discharge. 8. Contact [facility] with any questions, . Discharge Disposition: HOME SELF-CARE
== END 2021-09-02 16:48 | disposition home or self-care (01) | DRG 500 ==
LOC: EC 21:34 → OBSVTOIN 08-24 00:07 → 6NMEDSUR 08-24 00:07 → 4SSUR 08-25 16:38
PROVIDERS: ADMIT Family Medicine; ATTEND Family Medicine
PROC: 0PBM0ZZ Excision of Right Carpal, Open Approach (ICD-10-PCS; principal; 2021-08-26 08:35)
PROC: 0LB50ZZ Excision of Right Lower Arm and Wrist Tendon, Open Approach (ICD-10-PCS; principal; 2021-08-26 08:35)
DX: M65.9 Synovitis and tenosynovitis, unspecified (principal); G92.8 Other toxic encephalopathy; L03.113 Cellulitis of right upper limb; L02.511 Cutaneous abscess of right hand; M00.9 Pyogenic arthritis, unspecified; D69.6 Thrombocytopenia, unspecified; J44.9 Chronic obstructive pulmonary disease, unspecified; B19.20 Unspecified viral hepatitis C without hepatic coma; F41.1 Generalized anxiety disorder; E83.42 Hypomagnesemia; F32.A Depression, unspecified; F10.10 Alcohol abuse, uncomplicated; M19.90 Unspecified osteoarthritis, unspecified site; F17.210 Nicotine dependence, cigarettes, uncomplicated; F90.9 Attention-deficit hyperactivity disorder, unspecified type; K21.9 Gastro-esophageal reflux disease without esophagitis; B95.61 Methicillin susceptible Staphylococcus aureus infection as the cause of diseases classified elsewhere; W22.8XXA Striking against or struck by other objects, initial encounter; Z79.02 Long term (current) use of antithrombotics/antiplatelets; Z79.899 Other long term (current) drug therapy; Z91.51 Personal history of suicidal behavior
CPT/HCPCS: 36410; 36415; 76937; 80048; 80053; 80202; 80306; 82565; 83605; 83735; 84132; 84145; 85025; 85652; 86140; 87040; 87070; 87075; 87077; 87102; 87116; 87186; 87205; 87206; 88304; 88312; 93005; 96365; 96366; 96375; 96376; 99285

== ENCOUNTER 2021-09-15 11:02 | Emergency (ER) | payer OTHER, MEDICARE ==
[2021-09-15 11:14] VITALS: BP 119/75; PULSE 83; RESP 18; TEMP 98.5
--- NOTE | 2021-09-15 12:12 | XR ---
Right wrist HISTORY: Swelling, pain, spider bite 4 views of the right wrist, correlation right hand 08/23/2021, MRI 08/25/2021 There is remodeling at the radial carpal joint. Bone mineralization is thought to be slightly reduced . There is no fracture or dislocation. No periostitis is present to suggest osteomyelitis. Soft tissu e swelling is noted. Small ossific density at the volar aspect of the wrist is chronic. IMPRESSION: Correlate for cellulitis and abscess, infected tendon sheath as noted on MRI, follow-up a s indicated.
--- NOTE | 2021-09-15 12:25 | ED ---
Fall HPI - General Chief Complaint: Fall Stated Complaint: Hand injury Time Seen by Provider: 09/15/21 11:07 Source: patient, EMS, RN notes reviewed Mode of arrival: EMS Limitations: no limitations - History of Present Illness Initial Comments: This a 65-year-old female presents emergency Department chief complaint of a fall. Patient states she was startled up quickly lost her balance falling onto her right wrist. She had surgery then the August for infection of her wrist. Patient states that she is scheduled for follow-up appointment tomorrow for Dr. Goodman escalante. Patient reports no fevers or chills no drainage she is on IV antibiotics. Patient states that she is concerned she broke her wrist. Patient offers no complaints. - Related Data Home Medications Medication Instructions Recorded Confirmed Atorvastatin [Lipitor] 40 mg PO HS 08/24/21 08/24/21 Clopidogrel [Plavix] 75 mg PO DAILY 08/24/21 08/24/21 Cyanocobalamin (Vitamin B-12) 1,000 mcg PO DAILY 08/24/21 08/24/21 [Vitamin B-12] Ergocalciferol [Vitamin D2 (1250 1,250 mcg PO TH 08/24/21 08/24/21 Mcg = 00190 Iu)] Escitalopram [Lexapro] 20 mg PO DAILY 08/24/21 08/24/21 QUEtiapine [SEROquel] 25 mg PO HS PRN 08/24/21 08/24/21 rOPINIRole HCL [Requip] 1 mg PO HS 08/24/21 08/24/21 Previous Rx's Medication Instructions Recorded HYDROcodone/APAP 5-325MG [[place] 1 each PO Q6HR PRN #12 tab 09/02/21 5-325] Magnesium Oxide 400 mg PO BID #30 tab 09/02/21 Sennosides-Docusate Sodium 2 tab PO HS #1 tablet 09/02/21 [Senokot-S] Allergies Allergy/AdvReac Type Severity Reaction Status Date / Time No Known Allergies Allergy Verified 09/15/21 11:15 Review of Systems ROS Statement: Those systems with pertinent positive or pertinent negative responses have been documented in the HPI. ROS Other: All systems not noted in ROS Statement are negative. Past Medical History Past Medical History: Asthma, GERD/Reflux, Liver Disease, Osteoarthritis (OA) Additional Past Medical History / Comment(s): ELEVATED LIVER ENZYMES., HX OF PERFORATED STOMACH ULCER., sister states patient has HEPATITIS C, epigastric pain, recent admission for taking too much tylenol pm per pt. History of Any Multi-Drug Resistant Organisms: None Reported Past Surgical History: Hernia Repair, Tubal Ligation Additional Past Surgical History / Comment(s): PLASTIC SURGERY TO FOREHEAD, PERFORATED STOMACH ULCER. laser surgery to right leg for varicose veins Past Anesthesia/Blood Transfusion Reactions: No Reported Reaction Past Psychological History: ADD/ADHD, Anxiety, Depression Smoking Status: Current every day smoker Past Alcohol Use History: Daily Past Drug Use History: Marijuana - Past Family History Mother Family Medical History: Cancer Additional Family Medical History / Comment(s): OVARIAN CA Father History Unknown: Yes Additional Family Medical History / Comment(s): father when patient was very young (2 year old), he of a gunshot wound outside of a bar at the age of 23 General Exam Limitations: no limitations General appearance: alert, in no apparent distress Head exam: Present: atraumatic, normocephalic, normal inspection Eye exam: Present: normal appearance, PERRL, EOMI. Absent: scleral icterus, conjunctival injection, periorbital swelling Respiratory exam: Present: normal lung sounds bilaterally. Absent: respiratory distress, wheezes, rales, rhonchi, stridor Cardiovascular Exam: Present: regular rate, normal rhythm, normal heart sounds. Absent: systolic murmur, diastolic murmur, rubs, gallop, clicks Extremities exam: Present: other (Right wrist there is surgical site well healed with sutures in place there is mild swelling noted no increase in warmth there is no purulent drainage pain with range of motion. Patient has palpable pulses) Course Vital Signs 09/15/21 11:04 Temperature 98.5 F Pulse Rate 83 Respiratory 18 Rate Blood Pressure 119/75 O2 Sat by Pulse 99 Oximetry Medical Decision Making - Medical Decision Making X-rays negative for acute fracture. There is some soft tissue swelling and read by radiologist concerning for possible infection. Patient has a follow-up appointment tomorrow. She is currently on IV antibiotics Disposition Clinical Impression: Fall, Right wrist pain Disposition: HOME SELF-CARE Condition: Stable Instructions (If sedation given, give patient instructions): Wrist Injury (ED) Additional Instructions: Please return to the Emergency Department if symptoms worsen or any other concerns. Is patient prescribed a controlled substance at d/c from ED?: No Referrals: Danny Pedersen MD [Primary Care Provider] - 1-2 days Time of Disposition: 12:24
== END 2021-09-15 12:59 | disposition home or self-care (01) ==
LOC: EC 11:02
DX: M25.531 Pain in right wrist (principal); J45.909 Unspecified asthma, uncomplicated; K21.9 Gastro-esophageal reflux disease without esophagitis; M19.90 Unspecified osteoarthritis, unspecified site; F32.A Depression, unspecified; F41.9 Anxiety disorder, unspecified; F17.200 Nicotine dependence, unspecified, uncomplicated; F12.90 Cannabis use, unspecified, uncomplicated; Z79.01 Long term (current) use of anticoagulants; Z79.899 Other long term (current) drug therapy; W01.0XXA Fall on same level from slipping, tripping and stumbling without subsequent striking against object, initial encounter
CPT/HCPCS: 99284

== ENCOUNTER → 2022-10-28 | Outpatient (CLI) | payer MEDICARE, OTHER ==
[2022-10-28 15:31] LABS: African American GFR (CKD) >90 (>60 ml/min/1.73 sqM); Blood Urea Nitrogen 7 mg/dL (7-17); Non-African American GFR(CKD) >90 (>60 ml/min/1.73 sqM)
--- NOTE | 2022-11-01 08:11 | CT ---
EXAMINATION TYPE: CT brain w con DATE OF EXAM: 10/28/2022 COMPARISON: None HISTORY: headaches and dizziness following fall CT DLP: 1144 mGycm Automated exposure control for dose reduction was used. CONTRAST: CT scan of the head is performed with IV Contrast, patient injected with 100 mL of Isovue 300. FINDINGS: There is no abnormal enhancing mass or midline shift identified. The ventricles and sulci are age-ap propriate. The globes are intact and the visualized sinuses are clear. IMPRESSION: Negative contrast enhanced head CT exam.
== END | disposition home or self-care (01) ==
LOC: RADCTMAIN 14:51
PROVIDERS: ATTEND Family Medicine
DX: S09.90XA Unspecified injury of head, initial encounter (principal); R40.20 Unspecified coma
CPT/HCPCS: 82565; 84520; 70460; 36415; Q9967

== ENCOUNTER 2023-03-12 21:32 | Inpatient (IN) | payer MEDICARE, OTHER ==
[2023-03-13] MEDS ORDERED: MORPHINE SULFATE 4 MG/ML SYRINGE IV STA (00:06)
[2023-03-13] MEDS ORDERED: LORazepam 2 MG/ML INJ IV STA (00:06)
[2023-03-13] MEDS ORDERED: SODIUM CHLORIDE 0.9% 1,000 ML IV STA ×3 (00:06→02:13)
[2023-03-13] MEDS ORDERED: SODIUM CHLORIDE 0.9% 500 ML 500 ML IV STA (00:06)
--- NOTE | 2023-03-13 00:08 | ED ---
Altered Mental Status HPI - General Chief Complaint: Back Pain/Injury Stated Complaint: Back pain Time Seen by Provider: 03/12/23 23:24 Source: patient, RN notes reviewed, old records reviewed Mode of arrival: wheelchair Limitations: no limitations - History of Present Illness Initial Comments: This is a 67-year-old female who presents to the emergency department for severe confusion generalized pain bodyaches and pain. Patient is generally not been feeling well for a few days and started to make the family member, sister is at bedside concerned over patient's to status and deteriorating mental status and condition. Patient herself is unable to provide history secondary to significant symptoms here in the ER and altered mental state MD Complaint: altered mental status, decreased responsiveness, weakness -: unknown Severity: severe Consistency of Symptoms: getting worse Context: alcohol abuse Associated Symptoms: weakness Treatments Prior to Arrival: other pre-hospital medication (0) - Related Data Home Medications Medication Instructions Recorded Confirmed Atorvastatin [Lipitor] 40 mg PO HS 08/24/21 03/13/23 Clopidogrel [Plavix] 75 mg PO DAILY 08/24/21 03/13/23 Escitalopram [Lexapro] 20 mg PO DAILY 08/24/21 03/13/23 QUEtiapine [SEROquel] 25 mg PO HS 08/24/21 03/13/23 rOPINIRole HCL [Requip] 1 mg PO BID 08/24/21 03/13/23 Previous Rx's Medication Instructions Recorded Folic Acid 1 mg PO DAILY tab 03/15/23 Multivitamins, Thera [Multivitamin 1 each PO DAILY tab 03/15/23 (formulary)] Thiamine [Vitamin B-1] 100 mg PO DAILY tab 03/15/23 Allergies Allergy/AdvReac Type Severity Reaction Status Date / Time No Known Allergies Allergy Verified 03/13/23 13:51 Review of Systems ROS Statement: Those systems with pertinent positive or pertinent negative responses have been documented in the HPI. ROS Other: All systems not noted in ROS Statement are negative. Past Medical History Past Medical History: Asthma, GERD/Reflux, Liver Disease, Osteoarthritis (OA) Additional Past Medical History / Comment(s): ELEVATED LIVER ENZYMES., HX OF PERFORATED STOMACH ULCER., sister states patient has HEPATITIS C, epigastric pain, recent admission for taking too much tylenol pm per pt. History of Any Multi-Drug Resistant Organisms: None Reported Past Surgical History: Hernia Repair, Tubal Ligation Additional Past Surgical History / Comment(s): PLASTIC SURGERY TO FOREHEAD, PERFORATED STOMACH ULCER. laser surgery to right leg for varicose veins Past Anesthesia/Blood Transfusion Reactions: No Reported Reaction Past Psychological History: ADD/ADHD, Anxiety, Depression Smoking Status: Current every day smoker Past Alcohol Use History: Daily Past Drug Use History: Marijuana - Past Family History Mother Family Medical History: Cancer Additional Family Medical History / Comment(s): OVARIAN CA Father History Unknown: Yes Additional Family Medical History / Comment(s): father when patient was very young (2 year old), he of a gunshot wound outside of a bar at the age of 23 General Exam Limitations: altered mental status, physical limitation General appearance: appears intoxicated Head exam: Present: atraumatic, normocephalic, normal inspection Eye exam: Present: normal appearance, PERRL, EOMI. Absent: scleral icterus, conjunctival injection, periorbital swelling ENT exam: Present: normal exam, mucous membranes moist Neck exam: Present: normal inspection. Absent: tenderness, meningismus, lymphadenopathy Respiratory exam: Present: normal lung sounds bilaterally. Absent: respiratory distress, wheezes, rales, rhonchi, stridor Cardiovascular Exam: Present: regular rate, normal rhythm, normal heart sounds. Absent: systolic murmur, diastolic murmur, rubs, gallop, clicks GI/Abdominal exam: Present: soft, normal bowel sounds. Absent: distended, tenderness, guarding, rebound, rigid Extremities exam: Present: normal inspection, full ROM, normal capillary refill. Absent: tenderness, pedal edema, joint swelling, calf tenderness Back exam: Present: normal inspection Neurological exam: Present: alert, oriented X3, CN II-XII intact Psychiatric exam: Present: normal affect, normal mood Skin exam: Present: warm, dry, intact, normal color. Absent: rash Course Vital Signs 03/12/23 03/13/23 03/13/23 22:05 00:32 00:45 Temperature 98.5 F Pulse Rate 114 H 112 H 112 H Respiratory 24 24 30 H Rate Blood Pressure 148/76 159/90 149/85 O2 Sat by Pulse 98 97 95 Oximetry 03/13/23 03/13/23 03/13/23 01:00 01:50 01:59 Temperature Pulse Rate 113 H 106 H 105 H Respiratory 58 H Rate Blood Pressure 149/85 O2 Sat by Pulse 95 Oximetry 03/13/23 03/13/23 03/13/23 02:00 02:30 07:49 Temperature Pulse Rate 105 H 105 H 92 Respiratory 21 13 24 Rate Blood Pressure 141/82 128/81 131/76 O2 Sat by Pulse 95 95 96 Oximetry 03/13/23 03/13/23 11:35 13:29 Temperature Pulse Rate 98 100 Respiratory 24 18 Rate Blood Pressure 125/66 136/77 O2 Sat by Pulse 97 95 Oximetry - Reevaluation(s) Reevaluation #1: 03/13/23 02:18 Medical record is reviewed Reevaluation #2: 03/13/23 02:18 Patient symptoms are relatively unchanged Reevaluation #3: 03/13/23 02:29 Patient has no real change in symptoms here in the ER, still with no complaints Reevaluation #4: 03/13/23 02:29 Was pt. sent in by a medical professional or institution (, PA, FRONT CLERK, urgent care, hospital, or [place] [facility] facility...) When possible be specific @ -no Did you speak to anyone other than the patient for history (EMS, parent, family, police, friend...)? What history was obtained from this source @ -no Did you review nursing and triage notes (agree or disagree)? Why? @ -agree Are old charts reviewed (outside hosp., previous admission, EMS record, old EKG, old radiological studies, urgent care reports/EKG's, [place] [facility] facility records)? Report findings @ -yes Differential Diagnosis (chest pain, altered mental status, abdominal pain women, abdominal pain men, vaginal bleeding, weakness, fever, dyspnea, syncope, headache, dizziness, GI bleed, back pain, seizure, CVA, palpatations, mental health, musculoskeletal)? @ -prior EKG interpreted by me (3pts min.). @ -yes X-rays interpreted by me (1pt min.). @ -yes DF for acute disease CT interpreted by me (1pt min.). @ -no U/S interpreted by me (1pt. min.). @ -no What testing was considered but not performed or refused? (CT, X-rays, U/S, labs)? Why? @ -none What meds were considered but not given or refused? Why? @ -none Did you discuss the management of the patient with other professionals ([facility] i.e. , PA, FRONT CLERK, lab, RT, psych nurse, psychosocial rehabilitation counselor, director of parks and recreation, teacher, correction officer reformatory, showcase maker)? Give summary @ -no Was smoking cessation discussed for >3mins.? @ -no Was critical care preformed (if so, how long)? @ -yes31 Were there social determinants of health that impacted care today? How? (Homelessness, low income, unemployed, alcoholism, drug addiction, transportation, low edu. Level, literacy, decrease access to med. care, fci, rehab)? @ -none Was there de-escalation of care discussed even if they declined (Discuss DNR or withdrawal of care, Hospice)? DNR status @ -no What co-morbidities impacted this encounter? (DM, HTN, Smoking, COPD, CAD, Cancer, CVA, ARF, Chemo, Hep., AIDS, mental health diagnosis, sleep apnea, morbid obesity)? @ -none Was patient admitted / discharged? Hospital course, mention meds given and route, prescriptions, significant lab abnormalities, going to OR and other pertinent info. @ - 67 female to the ER for evaluation patient presents today to the emergency department for evaluation of mental status with severe low magnesium levels, and will admit for known history of alcohol abuse pending are in DTs Admitted Undiagnosed new problem with uncertain prognosis? @ -no Drug Therapy requiring intensive monitoring for toxicity (Heparin, Nitro, Insulin, Cardizem)? @ -no Were any procedures done? @ -no Diagnosis/symptom? @ -Hypomagnesemia, alcohol intoxication pending DTs Acute, or Chronic, or Acute on Chronic? @ -Acute Uncomplicated (without systemic symptoms) or Complicated (systemic symptoms)? @ -Complicated Side effects of treatment? @ -no Exacerbation, Progression, or Severe Exacerbation? @ -exacerbation Poses a threat to life or bodily function? How? (Chest pain, [place], [place], pneumonia, PE, COPD, DKA, ARF, appy, cholecystitis, CVA, Diverticulitis, Homicidal, Suicidal, threat to staff... and all critical care pts) @ -yes significantly low electrolytes Reevaluation #5: 03/13/23 02:29 Differential Altered Mental Status: Hypoglycemia, DKA, hypercapnia, ETOH, overdose, CO poisoning, trauma, myxedema coma, HTN encephalopathy, infection, encephalitis, psychosis, intercranial hemorrhage, hepatic encephalopathy, meningitis, CVA, this is not meant to be an all-inclusive list - Consultations Consultation #1: Spoke with [facility] reviewed admit this patient Medical Decision Making - Medical Decision Making 67 female to the ER for evaluation patient presents today to the emergency department for evaluation of mental status and will admit for known history of alcohol abuse pending are in DTs - Lab Data Result diagrams: 03/14/23 06:27 03/14/23 15:31 Lab Results 03/13/23 03/13/23 03/13/23 Range/Units 00:19 00:19 00:19 WBC 7.7 (3.8-10.6) k/uL RBC 3.68 L (3.80-5.40) m/uL Hgb 12.0 (11.4-16.0) gm/dL Hct 35.1 (34.0-46.0) % MCV 95.4 (80.0-100.0) fL MCH 32.6 (25.0-35.0) pg MCHC 34.2 (31.0-37.0) g/dL RDW 13.9 (11.5-15.5) % Plt Count 134 L (150-450) k/uL MPV 8.3 Neutrophils % 73 % Lymphocytes % 20 % Monocytes % 5 % Eosinophils % 0 % Basophils % 0 % Neutrophils # 5.6 (1.3-7.7) k/uL Lymphocytes # 1.6 (1.0-4.8) k/uL Monocytes # 0.4 (0-1.0) k/uL Eosinophils # 0.0 (0-0.7) k/uL Basophils # 0.0 (0-0.2) k/uL PT 12.4 (10.0-12.5) sec INR 1.2 H (<1.2) APTT 23.6 (22.0-30.0) sec VBG pH (7.31-7.41) VBG pCO2 (37-51) mmHg VBG HCO3 (24-28) mmol/L Sodium 136 L (137-145) mmol/L Potassium 3.2 L (3.5-5.1) mmol/L Chloride 100 (98-107) mmol/L Carbon Dioxide 19 L (22-30) mmol/L Anion Gap 17 mmol/L BUN 13 (7-17) mg/dL Creatinine 0.43 L (0.52-1.04) mg/dL Est GFR (CKD-EPI)AfAm >90 (>60 ml/min/1.73 sqM) Est GFR (CKD-EPI)NonAf >90 (>60 ml/min/1.73 sqM) Glucose 95 (74-99) mg/dL POC Glucose (mg/dL) (70-110) mg/dL POC Glu [employer] Barrier Attendant ID Lactic Ac Sepsis Rflx Plasma Lactic Acid Al (0.7-2.0) mmol/L Calcium 9.0 (8.4-10.2) mg/dL Phosphorus 4.2 (2.5-4.5) mg/dL Magnesium 0.7 L* (1.6-2.3) mg/dL Total Bilirubin 2.0 H (0.2-1.3) mg/dL AST 192 H (14-36) U/L ALT 67 H (4-34) U/L Alkaline Phosphatase 93 (38-126) U/L Ammonia (<30) umol/L Troponin I (0.000-0.034) ng/mL Total Protein 8.5 H (6.3-8.2) g/dL Albumin 4.5 (3.5-5.0) g/dL Lipase 71 (23-300) U/L TSH 0.500 (0.465-4.680) mIU/L Serum Alcohol <10 mg/dL 03/13/23 03/13/23 03/13/23 Range/Units 00:19 00:19 00:24 WBC (3.8-10.6) k/uL RBC (3.80-5.40) m/uL Hgb (11.4-16.0) gm/dL Hct (34.0-46.0) % MCV (80.0-100.0) fL MCH (25.0-35.0) pg MCHC (31.0-37.0) g/dL RDW (11.5-15.5) % Plt Count (150-450) k/uL MPV Neutrophils % % Lymphocytes % % Monocytes % % Eosinophils % % Basophils % % Neutrophils # (1.3-7.7) k/uL Lymphocytes # (1.0-4.8) k/uL Monocytes # (0-1.0) k/uL Eosinophils # (0-0.7) k/uL Basophils # (0-0.2) k/uL PT (10.0-12.5) sec INR (<1.2) APTT (22.0-30.0) sec VBG pH (7.31-7.41) VBG pCO2 (37-51) mmHg VBG HCO3 (24-28) mmol/L Sodium (137-145) mmol/L Potassium (3.5-5.1) mmol/L Chloride (98-107) mmol/L Carbon Dioxide (22-30) mmol/L Anion Gap mmol/L BUN (7-17) mg/dL Creatinine (0.52-1.04) mg/dL Est GFR (CKD-EPI)AfAm (>60 ml/min/1.73 sqM) Est GFR (CKD-EPI)NonAf (>60 ml/min/1.73 sqM) Glucose (74-99) mg/dL POC Glucose (mg/dL) 101 (70-110) mg/dL POC Glu [employer] Barrier Attendant ID Pepe Schofield Lactic Ac Sepsis Rflx Plasma Lactic Acid Al 3.5 H* (0.7-2.0) mmol/L Calcium (8.4-10.2) mg/dL Phosphorus (2.5-4.5) mg/dL Magnesium (1.6-2.3) mg/dL Total Bilirubin (0.2-1.3) mg/dL AST (14-36) U/L ALT (4-34) U/L Alkaline Phosphatase (38-126) U/L Ammonia 22 (<30) umol/L Troponin I <0.012 (0.000-0.034) ng/mL Total Protein (6.3-8.2) g/dL Albumin (3.5-5.0) g/dL Lipase (23-300) U/L TSH (0.465-4.680) mIU/L Serum Alcohol mg/dL 03/13/23 03/13/23 Range/Units 01:24 01:36 WBC (3.8-10.6) k/uL RBC (3.80-5.40) m/uL Hgb (11.4-16.0) gm/dL Hct (34.0-46.0) % MCV (80.0-100.0) fL MCH (25.0-35.0) pg MCHC (31.0-37.0) g/dL RDW (11.5-15.5) % Plt Count (150-450) k/uL MPV Neutrophils % % Lymphocytes % % Monocytes % % Eosinophils % % Basophils % % Neutrophils # (1.3-7.7) k/uL Lymphocytes # (1.0-4.8) k/uL Monocytes # (0-1.0) k/uL Eosinophils # (0-0.7) k/uL Basophils # (0-0.2) k/uL PT (10.0-12.5) sec INR (<1.2) APTT (22.0-30.0) sec VBG pH 7.38 (7.31-7.41) VBG pCO2 37 (37-51) mmHg VBG HCO3 22 L (24-28) mmol/L Sodium (137-145) mmol/L Potassium (3.5-5.1) mmol/L Chloride (98-107) mmol/L Carbon Dioxide (22-30) mmol/L Anion Gap mmol/L BUN (7-17) mg/dL Creatinine (0.52-1.04) mg/dL Est GFR (CKD-EPI)AfAm (>60 ml/min/1.73 sqM) Est GFR (CKD-EPI)NonAf (>60 ml/min/1.73 sqM) Glucose (74-99) mg/dL POC Glucose (mg/dL) (70-110) mg/dL POC Glu [employer] Barrier Attendant ID Lactic Ac Sepsis Rflx Y Plasma Lactic Acid Al (0.7-2.0) mmol/L Calcium (8.4-10.2) mg/dL Phosphorus (2.5-4.5) mg/dL Magnesium (1.6-2.3) mg/dL Total Bilirubin (0.2-1.3) mg/dL AST (14-36) U/L ALT (4-34) U/L Alkaline Phosphatase (38-126) U/L Ammonia (<30) umol/L Troponin I (0.000-0.034) ng/mL Total Protein (6.3-8.2) g/dL Albumin (3.5-5.0) g/dL Lipase (23-300) U/L TSH (0.465-4.680) mIU/L Serum Alcohol mg/dL - EKG Data -: EKG Interpreted by Me (EKG is sinus tachycardia 101 MN 180 QRS 90 QTC 367) - Radiology Data Radiology results: report reviewed (CT of the brain), image reviewed Critical Care Time Critical Care Time: Yes Total Critical Care Time: 31 Disposition Clinical Impression: Chronic alcohol abuse, Altered mental state, Delirium tremens, GERD (gastroesophageal reflux disease), Hypomagnesemia, COPD (chronic obstructive pulmonary disease) Disposition: ADMITTED IP TO THIS [facility] Condition: Stable Is patient prescribed a controlled substance at d/c from ED?: No Time of Disposition: 02:30
[2023-03-13 00:26] LABS: Glucose,Whole Blood 101 mg/dL (70-110)
[2023-03-13 00:44] LABS: Basophils % (A) 0 %; Eosinophils % (A) 0 %; HCT 35.1 % (34.0-46.0); Lymphocytes # (A) 1.6 k/uL (1.0-4.8); Lymphocytes % (A) 20 %; MCH 32.6 pg (25.0-35.0); MCHC 34.2 g/dL (31.0-37.0); MCV 95.4 fL (80.0-100.0); Mean Platelet Volume 8.3; Monocytes # (A) 0.4 k/uL (0-1.0); Monocytes % (A) 5 %; Neutrophils # (A) 5.6 k/uL (1.3-7.7); Neutrophils % (A) 73 %; Platelet Count 134 k/uL (150-450); RBC 3.68 m/uL (3.80-5.40); RDW 13.9 % (11.5-15.5); WBC 7.7 k/uL (3.8-10.6)
[2023-03-13] MEDS ORDERED: IPRATROPIUM-ALBUTEROL 3 ML NEB INHALATION STA (00:49)
[2023-03-13 00:52] LABS: INR 1.2 (<1.2); Partial Thromboplastin Time 23.6 sec (22.0-30.0); Prothrombin Time 12.4 sec (10.0-12.5)
[2023-03-13 00:58] LABS: ALT 67 U/L (4-34); AST 192 U/L (14-36); African American GFR (CKD) >90 (>60 ml/min/1.73 sqM); Albumin 4.5 g/dL (3.5-5.0); Alcohol <10 mg/dL; Alkaline Phosphatase 93 U/L (38-126); Anion Gap 17 mmol/L; Blood Urea Nitrogen 13 mg/dL (7-17); Carbon Dioxide 19 mmol/L (22-30); Chloride 100 mmol/L (98-107); Glucose 95 mg/dL (74-99); Lipase 71 U/L (23-300); Non-African American GFR(CKD) >90 (>60 ml/min/1.73 sqM); Phosphorus 4.2 mg/dL (2.5-4.5); Potassium 3.2 mmol/L (3.5-5.1); Sodium 136 mmol/L (137-145); Total Protein 8.5 g/dL (6.3-8.2)
[2023-03-13 01:16] LABS: Magnesium 0.7 mg/dL (1.6-2.3)
[2023-03-13 01:24] LABS: Lactic Acid, Venous 3.5 mmol/L (0.7-2.0)
[2023-03-13 02:01] LABS: VBG PH 7.38 (7.31-7.41)
[2023-03-13] MEDS ORDERED: NALOXONE 0.4 MG/ML 1 ML VIAL IV PRN (02:11)
[2023-03-13] MEDS ORDERED: LORazepam 2 MG/ML INJ IV PRN ×2 (02:11)
[2023-03-13] MEDS ORDERED: ONDANSETRON 4 MG/2 ML VIAL IVP PRN (02:11)
[2023-03-13] MEDS: LORazepam 2 MG/ML INJ IV PRN (03:45)
[2023-03-13] MEDS: DEXTROSE 5%-0.45% NACL 1,000 ML IV SCH (03:50)
--- NOTE | 2023-03-13 06:38 | CT ---
EXAM: CT Head Without Intravenous Contrast CLINICAL HISTORY: ITS.REASON CT Reason: ams TECHNIQUE: Axial computed tomography images of the head/brain without intravenous contrast. CTDI is 47.2 mGy and DLP is 1275.4 mGy-cm. This CT exam was performed using one or more of the following dose reduction techniques: automated exposure control, adjustment of the mA and/or kV according to patient size, and/or use of iterative reconstruction technique. COMPARISON: No relevant prior studies available. FINDINGS: Brain: Unremarkable. No hemorrhage. No significant white matter disease. No edema. Ventricles: Unremarkable. No ventriculomegaly. Bones/joints: Hyperostosis frontalis interna. No acute fracture. Soft tissues: Unremarkable. Sinuses: Unremarkable as visualized. No acute sinusitis. Mastoid air cells: Unremarkable as visualized. No mastoid effusion. IMPRESSION: No evidence of acute intracranial pathology.
[2023-03-13] MEDS: MULTIVITAMINS, THERA 1 EACH TAB PO SCH (09:25)
[2023-03-13] MEDS: FOLIC ACID 1 MG TAB PO SCH (09:25)
[2023-03-13] MEDS: MAGNESIUM SULFATE-D5W PMX 1 GM in DEXTROSE/WATER 1 100ML.BAG IVPB SCH ×4 (13:29→18:54)
[2023-03-13] MEDS ORDERED: POTASSIUM CHLORIDE ER 20 MEQ TAB.ER PO STA (15:42)
--- NOTE | 2023-03-13 15:42 | P.HPIM ---
History of Present Illness H&P Date: 03/13/23 History of present illness; she is a 67-year-old lady with past medical history significant for alcohol abuse, restless leg syndrome who presented to the ER for altered mental status. Patient history is very limited as patient is a poor historian. Family was concerned at home the patient was more confused. Patient is a daily drinker. There was no complain of any recent fall. No complaint of loss of consciousness. No complain of jerky movement of any extremity. Patient has been complaining of generalized body aches. No complain of fever or chills at home. No complain of Nausea or vomiting. Denies any chest pain or shortness of breath. Because of confusion, patient was brought to the ER Initial lab work done in the ER showed WBC 7.7, hemoglobin 12, platelet count 134, sodium 136, potassium 3.2, BUN 13, creatinine 0.43, magnesium 0.7, bilirubin 2.0, AST 192, ALT 167 EKG done in the ER showed heart rate of 101, no ST segment elevation or depression seen, no T-wave inversions seen. CT head done showed no acute intracranial process Patient admitted to internal medicine service REVIEW OF SYSTEMS: CONSTITUTIONAL: No fever, no malaise, no fatigue. HEENT: No recent visual problems or hearing problems. Denied any sore throat. CARDIOVASCULAR: No chest pain, orthopnea, PND, no palpitations, no syncope. PULMONARY: No shortness of breath, no cough, no hemoptysis. GASTROINTESTINAL: No diarrhea, no nausea, no vomiting, no abdominal pain. NEUROLOGICAL: No headaches, no weakness, no numbness. HEMATOLOGICAL: Denies any bleeding or petechiae. GENITOURINARY: Denies any burning micturition, frequency, or urgency. MUSCULOSKELETAL/RHEUMATOLOGICAL: Denies any joint pain, swelling, or any muscle pain. ENDOCRINE: Denies any polyuria or polydipsia. The rest of the 14-point review of systems is negative. PHYSICAL EXAMINATION: GENERAL: The patient is alert to self and place, not in any acute distress. Well developed, well nourished. HEENT: Pupils are round and equally reacting to light. EOMI. No scleral icterus. No conjunctival pallor. Normocephalic, atraumatic. No pharyngeal erythema. No thyromegaly. CARDIOVASCULAR: S1 and S2 present. No murmurs, rubs, or gallops. PULMONARY: Chest is clear to auscultation, no wheezing or crackles. ABDOMEN: Soft, nontender, nondistended, normoactive bowel sounds. No palpable organomegaly. MUSCULOSKELETAL: No joint swelling or deformity. EXTREMITIES: No cyanosis, clubbing, or pedal edema. NEUROLOGICAL: Gross neurological examination did not reveal any focal deficits. SKIN: No rashes. Assessment and plan Acute metabolic encephalopathy Alcohol detox Hyponatremia Hypokalemia Hypomagnesemia Acute transaminitis Lactic acidosis Monitor vital signs Monitor CBC Monitor CMP Continue telemetry monitoring Trend lactic acid levels Ordered Drug screen Ordered Tylenol levels Replace magnesium levels Continue IV fluids Continue antiemetics Continue CIWA protocol Continue thiamine and folic acid Ordered ultrasound abdominal Resume home meds Labs and medication were reviewed.. Continue same treatment. Continue with symptomatic treatment. Resume home medication. Monitor labs and vitals. DVT and GI prophylaxis. Further recommendations as per clinical course of the patient Dictation was produced using [employer] dictation software. please excuse any grammatical, word or spelling errors. Past Medical History Past Medical History: Asthma, GERD/Reflux, Liver Disease, Osteoarthritis (OA) Additional Past Medical History / Comment(s): ELEVATED LIVER ENZYMES., HX OF PERFORATED STOMACH ULCER., sister states patient has HEPATITIS C, epigastric pain, recent admission for taking too much tylenol pm per pt. History of Any Multi-Drug Resistant Organisms: None Reported Past Surgical History: Hernia Repair, Tubal Ligation Additional Past Surgical History / Comment(s): PLASTIC SURGERY TO FOREHEAD, PERFORATED STOMACH ULCER. laser surgery to right leg for varicose veins Past Anesthesia/Blood Transfusion Reactions: No Reported Reaction Past Psychological History: ADD/ADHD, Anxiety, Depression Smoking Status: Current every day smoker Past Alcohol Use History: Daily Past Drug Use History: Marijuana - Past Family History Mother Family Medical History: Cancer Additional Family Medical History / Comment(s): OVARIAN CA Father History Unknown: Yes Additional Family Medical History / Comment(s): father when patient was very young (2 year old), he of a gunshot wound outside of a bar at the age of 23 Medications and Allergies Home Medications Medication Instructions Recorded Confirmed Type Atorvastatin [Lipitor] 40 mg PO HS 08/24/21 03/13/23 History Clopidogrel [Plavix] 75 mg PO DAILY 08/24/21 03/13/23 History Escitalopram [Lexapro] 20 mg PO DAILY 08/24/21 03/13/23 History QUEtiapine [SEROquel] 25 mg PO HS 08/24/21 03/13/23 History rOPINIRole HCL [Requip] 1 mg PO BID 08/24/21 03/13/23 History Allergies Allergy/AdvReac Type Severity Reaction Status Date / Time No Known Allergies Allergy Verified 03/13/23 13:51 Physical Exam Vitals: Vital Signs Temp Pulse Resp BP Pulse Ox 03/13/23 14:39 98.1 F 96 22 156/82 97 03/13/23 13:29 100 18 136/77 95 03/13/23 11:35 98 24 125/66 97 03/13/23 07:49 92 24 131/76 96 03/13/23 02:30 105 H 13 128/81 95 03/13/23 02:00 105 H 21 141/82 95 03/13/23 01:59 105 H 03/13/23 01:50 106 H 03/13/23 01:00 113 H 58 H 149/85 95 03/13/23 00:45 112 H 30 H 149/85 95 03/13/23 00:32 112 H 24 159/90 97 03/12/23 22:05 98.5 F 114 H 24 148/76 98 Intake and Output 03/13/23 03/13/23 03/13/23 06:59 14:59 22:59 Intake Total 4300 Output Total 1 Balance 4299 Intake: Intake, IV Titration 4300 Amount Dextrose 5%-0.45% NaCl 1, 240 000 ml @ 20 mls/hr IV . Q24H KARTHIK Rx#:[id number] Sodium Chloride 0.9% 1, 1560 000 ml @ 130 mls/hr IV . Q7H42M STA Rx#:[id number] Sodium Chloride 0.9% 1, 2500 000 ml @ 999 mls/hr IV . Q1H1M STA Rx#:[id number] Output: Urine 1 Results CBC & Chem 7: 03/13/23 00:19 03/13/23 00:19 Labs: Abnormal Lab Results - Last 24 Hours (Table) 03/13/23 03/13/23 03/13/23 Range/Units 00:19 00:19 00:19 RBC 3.68 L (3.80-5.40) m/uL Plt Count 134 L (150-450) k/uL INR 1.2 H (<1.2) VBG HCO3 (24-28) mmol/L Sodium 136 L (137-145) mmol/L Potassium 3.2 L (3.5-5.1) mmol/L Carbon Dioxide 19 L (22-30) mmol/L Creatinine 0.43 L (0.52-1.04) mg/dL Plasma Lactic Acid Al (0.7-2.0) mmol/L Magnesium 0.7 L* (1.6-2.3) mg/dL Total Bilirubin 2.0 H (0.2-1.3) mg/dL AST 192 H (14-36) U/L ALT 67 H (4-34) U/L Total Protein 8.5 H (6.3-8.2) g/dL 03/13/23 03/13/23 Range/Units 00:19 01:36 RBC (3.80-5.40) m/uL Plt Count (150-450) k/uL INR (<1.2) VBG HCO3 22 L (24-28) mmol/L Sodium (137-145) mmol/L Potassium (3.5-5.1) mmol/L Carbon Dioxide (22-30) mmol/L Creatinine (0.52-1.04) mg/dL Plasma Lactic Acid Al 3.5 H* (0.7-2.0) mmol/L Magnesium (1.6-2.3) mg/dL Total Bilirubin (0.2-1.3) mg/dL AST (14-36) U/L ALT (4-34) U/L Total Protein (6.3-8.2) g/dL
--- NOTE | 2023-03-13 16:26 | US ---
EXAMINATION TYPE: US abdomen complete DATE OF EXAM: 03/13/2023 COMPARISON: NONE CLINICAL INDICATION: Female, 67 years old with history of Abdominal pain, elevated LFTs; TECHNIQUE: Multiple sonographic images of the abdomen are obtained. FINDINGS: EXAM MEASUREMENTS: Liver Length: 19.6 cm Gallbladder Wall: 0.20 cm CBD: 0.40 cm Spleen: 11.6 x 10.0 x 4.1 cm Right Kidney: 9.7 x 5.3 x 4.9 cm Left Kidney: 11.0 x 5.6 x 4.4 cm Pancreas: Visualized portions of the pancreas and body show no gross anomaly. The head and tail are largely obscured by bowel gas shadowing. Liver: Mildly enlarged. Far field attenuation. No focal lesion seen. Gallbladder: No stones seen. No wall thickening or surrounding fluid. Evidence for sonographic Thompson's sign: No CBD: wnl Spleen: wnl Right Kidney: wnl Left Kidney: wnl Upper IVC: wnl Abd Aorta: Distal aorta not visualized IMPRESSION: 1. Hepatomegaly 19.6 cm. Suspect underlying mild to moderate hepatic steatosis. 2. No gallstones or biliary ductal dilatation.
[2023-03-13] MEDS: MORPHINE SULFATE 4 MG/ML SYRINGE IV PRN ×2 (16:59→20:46)
[2023-03-13 17:11] LABS: Acetaminophen <10.0 ug/mL; Salicylate <1.0 mg/dL
[2023-03-13] MEDS: QUEtiapine 25 MG TAB PO SCH (20:46)
[2023-03-13 23:30] LABS: Urine Alcohol Negative (Negative); Urine Barbiturate Negative (Negative); Urine Cocaine Negative (Negative); Urine Methadone Negative (Negative); Urine Opiates Positive (Negative); Urine Phencyclidine Negative (Negative)
[2023-03-14] MEDS: MORPHINE SULFATE 4 MG/ML SYRINGE IV PRN ×2 (02:48→06:37)
[2023-03-14] MEDS: DEXTROSE 5%-0.45% NACL 1,000 ML IV SCH (03:35)
[2023-03-14 06:49] LABS: Basophils % (A) 0 %; Eosinophils # (A) 0.1 k/uL (0-0.7); Eosinophils % (A) 2 %; HCT 32.3 % (34.0-46.0); HGB 10.6 gm/dL (11.4-16.0); Lymphocytes # (A) 0.9 k/uL (1.0-4.8); Lymphocytes % (A) 31 %; MCHC 32.8 g/dL (31.0-37.0); MCV 97.6 fL (80.0-100.0); Monocytes # (A) 0.1 k/uL (0-1.0); Monocytes % (A) 4 %; Neutrophils # (A) 1.7 k/uL (1.3-7.7); Neutrophils % (A) 61 %; RBC 3.32 m/uL (3.80-5.40); WBC 2.9 k/uL (3.8-10.6)
[2023-03-14 07:04] LABS: ALT 63 U/L (4-34); AST 177 U/L (14-36); African American GFR (CKD) >90 (>60 ml/min/1.73 sqM); Albumin 3.3 g/dL (3.5-5.0); Alkaline Phosphatase 73 U/L (38-126); Anion Gap 7 mmol/L; Blood Urea Nitrogen 8 mg/dL (7-17); Calcium 7.6 mg/dL (8.4-10.2); Carbon Dioxide 23 mmol/L (22-30); Chloride 104 mmol/L (98-107); Glucose 94 mg/dL (74-99); Magnesium 1.5 mg/dL (1.6-2.3); Non-African American GFR(CKD) >90 (>60 ml/min/1.73 sqM); Phosphorus 1.8 mg/dL (2.5-4.5); Potassium 3.1 mmol/L (3.5-5.1); Sodium 134 mmol/L (137-145); Total Bilirubin 1.1 mg/dL (0.2-1.3); Total Protein 6.7 g/dL (6.3-8.2)
[2023-03-14 07:32] LABS: Platelet Count 85 k/uL (150-450); RBC Morphology Normal
[2023-03-14] MEDS: FOLIC ACID 1 MG TAB PO SCH (09:03)
[2023-03-14] MEDS: CLOPIDOGREL 75 MG TAB PO SCH (09:03)
[2023-03-14] MEDS: MULTIVITAMINS, THERA 1 EACH TAB PO SCH (09:03)
[2023-03-14] MEDS: THIAMINE 100 MG TAB PO SCH (09:04)
[2023-03-14] MEDS: ESCITALOPRAM 20 MG TAB PO SCH (09:04)
[2023-03-14] MEDS: HYDROcodone/APAP 5-325MG 1 EACH TAB PO PRN (09:13)
[2023-03-14] MEDS: LORazepam 2 MG/ML INJ IV PRN (09:18)
--- NOTE | 2023-03-14 11:20 | P.CNNES ---
History of Present Illness Consult date: 03/14/23 Requesting physician: Al Higgins Reason for Consult: Altered mental status History of Present Illness: Patient is a 67-year-old female came to the hospital by ambulance two days ago, 03/12/2023 at 9:32 PM for altered mental status. As per EMS flow sheet, when they arrived, patient was sitting on the couch, alert and oriented 4, complaining of lower back pain. The back pain started the day prior, when she woke up. She had several falls since then as well. Patient mentioned that she has restless legs syndrome. Patient's vitals at the scene was blood pressure 155/85, pulse rate 114, respiration 20, saturation 95%. EKG shows sinus rhythm. CT head revealed no evidence of acute intracranial pathology. I personally reviewed CT head, agree with the findings. Abdominal ultrasound revealed hepatomegaly 19.6 centimeter. Suspect underlying [id number] steatosis. No gallstone or biliary ductal dilation. Patient's blood tests shows normal WBC, hemoglobin 12.0, platelets 134. PT/PTT normal. Sodium 136 potassium 3.2, normal renal functions. Lactate was elevated 3.5. AST is 192, ALT 67. Troponin negative. Ammonia is 22 but the repeat ammonia is 34. Vitamin B12 424, TSH normal 0.50. Urine drug screen positive for opiates, amphetamines and cannabinoids. Blood alcohol level negative. Patient at home takes Seroquel 25 mg at bedtime, Plavix 75 mg, Lipitor 40 mg, Requip 1 mg twice a day and Lexapro 20 mg. Patient at present states that she came to the hospital because she can't walk on her legs. She can hardly walk and her legs hurt a lot, pointing from bilateral ankles the lower back. She denies any problems with her hands or upper arms although her neck "always hurt" 11/14. Patient states that she has fell about 4 or 5 times in her sister's house in the last few days and she thinks her legs give out. Patient admits to having headache 6-09/13 but she "always have headaches". Patient's urine was positive for marijuana, amphetamines and opiates. Patient states that she smokes marijuana once every couple weeks. She denies any use of amphetamines or speed or mushrooms. She admits to smoking half pack per day since age 18 years. Also admits to drinking few beers per day since age 18. Patient says that she is currently living by herself although she is planning to move in her sister. She has 3 daughters and one of the daughters lives close by. Patient has some scabs on her forehead, and she claims that she banged her head into the cupboard door. Patient has significantly chapped lips. At present the nurse reported that she was very anxious, and her CIWA scale was 12, therefore she has just received Ativan 1 mg IV 1 dose therefore she is very groggy. Patient has a very husky and hoarse voice, which she is not sure of the cause. Review of Systems All systems: negative (As mentioned in the HPI. Patient is very groggy.) Past Medical History Past Medical History: Asthma, GERD/Reflux, Liver Disease, Osteoarthritis (OA) Additional Past Medical History / Comment(s): ELEVATED LIVER ENZYMES., HX OF PERFORATED STOMACH ULCER., sister states patient has HEPATITIS C, epigastric pain, recent admission for taking too much tylenol pm per pt. History of Any Multi-Drug Resistant Organisms: None Reported Past Surgical History: Hernia Repair, Tubal Ligation Additional Past Surgical History / Comment(s): PLASTIC SURGERY TO FOREHEAD, PERFORATED STOMACH ULCER. laser surgery to right leg for varicose veins Past Anesthesia/Blood Transfusion Reactions: No Reported Reaction Past Psychological History: ADD/ADHD, Anxiety, Depression Smoking Status: Current every day smoker Past Alcohol Use History: Daily Past Drug Use History: Marijuana - Past Family History Mother Family Medical History: Cancer Additional Family Medical History / Comment(s): OVARIAN CA Father History Unknown: Yes Additional Family Medical History / Comment(s): father when patient was very young (2 year old), he of a gunshot wound outside of a bar at the age of 23 Medications and Allergies Home Medications Medication Instructions Recorded Confirmed Type Atorvastatin [Lipitor] 40 mg PO HS 08/24/21 03/13/23 History Clopidogrel [Plavix] 75 mg PO DAILY 08/24/21 03/13/23 History Escitalopram [Lexapro] 20 mg PO DAILY 08/24/21 03/13/23 History QUEtiapine [SEROquel] 25 mg PO HS 08/24/21 03/13/23 History rOPINIRole HCL [Requip] 1 mg PO BID 08/24/21 03/13/23 History Allergies Allergy/AdvReac Type Severity Reaction Status Date / Time No Known Allergies Allergy Verified 03/13/23 13:51 Physical Examination - Vital Signs Vital Signs: Vital Signs Temp Pulse Pulse Resp BP BP Pulse Ox 03/14/23 08:00 98.9 F 85 16 127/77 97 03/14/23 07:58 98 03/14/23 02:00 98.6 F 91 20 118/61 97 03/13/23 20:00 98.5 F 95 18 116/72 98 03/13/23 17:02 95 25 H 144/74 97 03/13/23 14:39 98.1 F 96 22 156/82 97 03/13/23 13:29 100 18 136/77 95 03/13/23 11:35 98 24 125/66 97 Intake and Output 03/13/23 03/14/23 03/14/23 22:59 06:59 14:59 Intake Total 650 1280 118 Output Total 250 Balance 400 1280 118 Intake: IV 160 320 Dextrose 5%-0.45% NaCl 1, 60 220 000 ml @ 20 mls/hr IV . Q24H KARTHIK Rx#:[id number] Magnesium Sulfate-D5w Pmx 100 100 1 gm In Dextrose/Water 1 100ml.bag @ 100 mls/hr IVPB Q1H KARTHIK Rx#: [id number] Oral 490 960 118 Output: Urine 250 Other: Voiding Method Toilet # Voids 1 3 Patient is an elderly female, in no acute distress. Patient is very groggy, somnolent, easily drifts to sleep, as she has received Ativan 1 mg IV 1 dose recently. Patient is fully oriented to time place and person. She knows it is March and the year is and that she is in [facility] in [facility] and name of the current president. Speech and language functions are normal, although her speech is very husky, and slightly hoarse. Patient can name and repeat very well. No aphasia or dysarthria. Attention, concentration is impaired due to somnolence and fund of knowledge is adequate. On cranial nerve examination, pupils are equal, round and reacting to light, visual biswas are full on confrontation, with no neglect on double simultaneous stimulation. Extraocular muscles are intact with no nystagmus. Face is symm etric, tongue protrudes to the midline. Palatal elevation and sensation normal, hearing and shoulder shrug normal, facial sensation normal. Patient is very chapped lips. On muscle strength testing, there is no pronator drift and the strength is normal in arms and legs distally and proximally. Deep tendon reflexes are symmetric 1+ in the upper limbs at biceps and brachioradialis, 2+ at the knees, 1 ankles and plantars are downgoing bilaterally. Sensory to touch is equal with no neglect on double simultaneous stimulation. Cerebellar function showed no ataxia for [id number]-vima testing. No dysdiadochokinesia. No ataxia for [id number] testing on either side. Tone and bulk of muscles normal. Gait deferred.. On general examination, there is no carotid bruit or murmur, S1-S2 audible. Chest is clear on consultation. Abdomen is soft nontender. No organomegaly, bowel sounds present. Peripheral pulses are present. No peripheral edema. Patient has some bruises on her extremities, chapped lips. Some scabs on the forehead, from banging her head on the cupboard door. Results - Laboratory Findings CBC and BMP: 03/14/23 06:27 03/14/23 06:27 Abnormal Lab Findings: Abnormal Labs 03/13/23 03/13/23 03/13/23 00:19 00:19 00:19 WBC RBC 3.68 L Hgb Hct Plt Count 134 L Lymphocytes # ESR INR 1.2 H VBG HCO3 Sodium 136 L Potassium 3.2 L Carbon Dioxide 19 L Creatinine 0.43 L Plasma Lactic Acid Al Calcium Phosphorus Magnesium 0.7 L* Total Bilirubin 2.0 H AST 192 H ALT 67 H Ammonia C-Reactive Protein Total Protein 8.5 H Albumin Urine Opiates Screen Ur Amphetamine Screen U Cannabinoids Screen 03/13/23 03/13/23 03/13/23 00:19 01:36 16:30 WBC RBC Hgb Hct Plt Count Lymphocytes # ESR INR VBG HCO3 22 L Sodium Potassium Carbon Dioxide Creatinine Plasma Lactic Acid Al 3.5 H* Calcium Phosphorus Magnesium Total Bilirubin AST ALT Ammonia C-Reactive Protein Total Protein Albumin Urine Opiates Screen Positive A Ur Amphetamine Screen Positive A U Cannabinoids Screen Positive A 03/13/23 03/13/23 03/13/23 16:37 16:37 16:37 WBC RBC Hgb Hct Plt Count Lymphocytes # ESR 35 H INR VBG HCO3 Sodium Potassium Carbon Dioxide Creatinine Plasma Lactic Acid Al Calcium Phosphorus Magnesium Total Bilirubin AST ALT Ammonia 34 H C-Reactive Protein 2.0 H Total Protein Albumin Urine Opiates Screen Ur Amphetamine Screen U Cannabinoids Screen 03/14/23 03/14/23 06:27 06:27 WBC 2.9 L RBC 3.32 L Hgb 10.6 L Hct 32.3 L Plt Count 85 L Lymphocytes # 0.9 L ESR INR VBG HCO3 Sodium 134 L Potassium 3.1 L Carbon Dioxide Creatinine 0.33 L Plasma Lactic Acid Al Calcium 7.6 L Phosphorus 1.8 L Magnesium 1.5 L Total Bilirubin AST 177 H ALT 63 H Ammonia C-Reactive Protein Total Protein Albumin 3.3 L Urine Opiates Screen Ur Amphetamine Screen U Cannabinoids Screen Assessment and Plan Assessment: * Altered mental status, unclear cause, perhaps mild encephalopathy, perhaps due to substance abuse. Patient's urine positive for marijuana, opiates and amphetamines. She admits to smoking marijuana, but denies any use of a mphetamines. Likewise, patient currently not prescribed opiates although her urine was positive for opiates. * Excessive somnolence, likely related to recently receiving Ativan. Rule out hepatic encephalopathy, with mildly elevated ammonia 34 * History of alcoholism * History of tobacco use * Recurrent falls, with severe back pain, unclear cause. Her examination is nonfocal. Muscle strength is normal and reflexes are symmetric. * Mild hyponatremia, hypokalemia * Elevated LFTs Plan: * Patient's ammonia is mildly elevated. Hepatic ultrasound also revealed enlarged liver and her LFTs are elevated. Continue lactulose. * Patient on CIWA protocol. * Treatment of hypokalemia, hyponatremia as per IM. * Recommend abstinence from substance abuse. * B12 is normal 424, TSH 0.717. Continue thiamine, folate, multivitamins. * Patient complaining of significant back pain. Her examination is nonfocal. Orthopedic consulted. We will follow. * Check EEG to rule out any epileptiform activity. * We will obtain collateral history from patient's family. * Neurology will follow. Thank you for the consult.
[2023-03-14] MEDS: MAGNESIUM SULFATE-D5W PMX 1 GM in DEXTROSE/WATER 1 100ML.BAG IVPB SCH ×2 (12:07→12:44)
[2023-03-14] MEDS: POTASSIUM CHLORIDE ER 20 MEQ TAB.ER PO SCH ×3 (12:07→15:56)
[2023-03-14] MEDS: LACTULOSE 20 GM/30 ML CUP PO SCH ×3 (15:57→20:01)
--- NOTE | 2023-03-14 19:25 | P.DS ---
Providers Date of admission: 03/13/23 02:13 Expected date of discharge: 03/14/23 Attending physician: Danny Pedersen MD Consults: 03/13/23 15:42 Consult Physician Routine Consulting Provider: Aston Dubois Consult Reason/Comments: Altered mental status Do you want consulting provider notified?: Yes 03/14/23 09:23 Consult Physician Routine Consulting Provider: Oliverio Means Consult Reason/Comments: back and pain Do you want consulting provider notified?: Yes 03/14/23 15:40 Consult Physician Routine Consulting Provider: Chriss Sandra Consult Reason/Comments: back and leg pain Do you want consulting provider notified?: Yes Primary care physician: Danny Pedersen MD Hospital Course: Final Diagnoses: Altered mental status, possible acute toxic encephalopathy secondary to substance abuse. Toxicology positive for marijuana, opiates and amphetamines. Possible acute hepatic encephalopathy, ammonia 34. Chronic Alcohol abuse, possible DTs Hepatomegaly, reported per CT Steatosis, alcoholic History of hepatitis C Chronic thrombocytopenia Chronic COPD, stable Nicotine dependence Chronic back pain Recurrent falls Hyponatremia, mild Hypokalemia Hypomagnesemia Gastroesophageal reflux disease History of polysubstance abuse, cocaine, meth., crack Arthritis Generalized anxiety disorder Unspecified Depressive disorder, history of suicide attempt Hospital course: History of present illness; she is a 67-year-old lady with past medical history significant for alcohol abuse, restless leg syndrome who presented to the ER for altered mental status. Patient history is very limited as patient is a poor historian. Family was concerned at home the patient was more confused. Patient is a daily drinker. There was no complain of any recent fall. No complaint of loss of consciousness. No complain of jerky movement of any extremity. Patient has been complaining of generalized body aches. No complain of fever or chills at home. No complain of Nausea or vomiting. Denies any chest pain or shortness of breath. Because of confusion, patient was brought to the ER Initial lab work done in the ER showed WBC 7.7, hemoglobin 12, platelet count 134, sodium 136, potassium 3.2, BUN 13, creatinine 0.43, magnesium 0.7, bilirubin 2.0, AST 192, ALT 167 EKG done in the ER showed heart rate of 101, no ST segment elevation or depression seen, no T-wave inversions seen. CT head done showed no acute intracranial process Patient admitted to internal medicine service Maintained on thiamine, multivitamins, folate ,lactulose and CIWA protocol.CIWA score currently 14. Ammonia level XXXIV. Potassium 3.1, magnesium 1.5. Patient will be discharged home today pending potassium, magnesium supplemented with repeat levels within normal limits, repeat ammonia level normalizes, CIWA score less than 5 , evaluation/ final DC recommendations and clearance per neurology and orthopedic surgery. Alcohol abstinence reinforced. The impression and plan of care has been dictated as directed. : I performed a history and examination of this patient, discussed the same with the dictator. I agree with the dictator's note ,documented as a scribe. Any additional findings or plans will be noted. Patient Condition at Discharge: Stable Plan - Discharge Summary Discharge Rx Participant: No New Discharge Prescriptions: No Action QUEtiapine [SEROquel] 25 mg PO HS Clopidogrel [Plavix] 75 mg PO DAILY Atorvastatin [Lipitor] 40 mg PO HS rOPINIRole HCL [Requip] 1 mg PO BID Escitalopram [Lexapro] 20 mg PO DAILY Discharge Medication List Atorvastatin [Lipitor] 40 mg PO HS 08/24/21 [History] Clopidogrel [Plavix] 75 mg PO DAILY 08/24/21 [History] Escitalopram [Lexapro] 20 mg PO DAILY 08/24/21 [History] QUEtiapine [SEROquel] 25 mg PO HS 08/24/21 [History] rOPINIRole HCL [Requip] 1 mg PO BID 08/24/21 [History] Follow up Appointment(s)/Referral(s): Danny Pedersen MD [Primary Care Provider] - 3 Days Discharge/Stand Alone Forms: AA Meetings [facility], Outpatient Counseling, Inp Substance Abuse Facilities
[2023-03-14] MEDS: QUEtiapine 25 MG TAB PO SCH (20:01)
[2023-03-14 22:32] VITALS: RESP 19
[2023-03-15] MEDS: HYDROcodone/APAP 5-325MG 1 EACH TAB PO PRN ×2 (04:07→09:13)
[2023-03-15] MEDS: DEXTROSE 5%-0.45% NACL 1,000 ML IV SCH (04:09)
[2023-03-15 04:53] VITALS: TEMP 97.8
[2023-03-15] MEDS: THIAMINE 100 MG TAB PO SCH (08:55)
[2023-03-15] MEDS: LACTULOSE 20 GM/30 ML CUP PO SCH (08:56)
[2023-03-15] MEDS: CLOPIDOGREL 75 MG TAB PO SCH (08:56)
[2023-03-15] MEDS: ESCITALOPRAM 20 MG TAB PO SCH (08:56)
[2023-03-15] MEDS: FOLIC ACID 1 MG TAB PO SCH (08:56)
[2023-03-15] MEDS: MULTIVITAMINS, THERA 1 EACH TAB PO SCH (08:56)
[2023-03-15] MEDS ORDERED: ALPRAZolam 0.25 MG TAB PO STA (09:00)
--- NOTE | 2023-03-15 11:18 | P.PN ---
Subjective Progress Note Date: 03/15/23 Patient was seen for a follow-up. Patient is doing much better. Patient is fully alert and awake. Patient states her legs are better, but not the lower back. Patient admits to having significant low back pain, which she rates pain 7-8/10, which goes around her lower back. Her legs cramp up and the legs are not hurting as much. Her knees and ankles aches. Patient admits to drinking high energy drink "lozano". This may have resulted in positive amphetamines. Patient states that she only takes Requip, Lexapro and Seroquel. Does not take any opiates. Uncertain as to the cause of positive opiates in her system. Patient states that she has smoked 1 to 1-1/2 pack per day since age 18. She quit smoking for a year and then restarted smoking about half a pack per day in the last 4-5 years. She only drinks 2-3 beers per day, does not consider herself alcoholic. Does not drink heavily. Objective - Vital Signs Vital signs: Vital Signs Temp 97.8 F 03/15/23 04:34 Pulse 85 03/15/23 08:18 Resp 19 03/15/23 04:34 BP 162/92 03/15/23 08:18 Pulse Ox 97 03/15/23 08:18 FiO2 Intake & Output 03/14/23 03/15/23 03/15/23 18:59 06:59 18:59 Intake Total 596 Balance 596 Intake: IV 160 Dextrose 5%-0.45% NaCl 1, 160 000 ml @ 20 mls/hr IV . Q24H KARTHIK Rx#:[id number] Intake, IV Titration 200 Amount Magnesium Sulfate-D5w Pmx 200 1 gm In Dextrose/Water 1 100ml.bag @ 100 mls/hr IVPB Q1H KARTHIK Rx#: [id number] Oral 236 Other: Voiding Method Toilet Toilet Toilet # Voids 3 # Bowel Movements 3 - Exam Mental status, speech and language functions are normal. Cranial nerves are normal muscle strength is normal. No ataxia, sensations equal. - Labs CBC & Chem 7: 03/14/23 06:27 03/14/23 15:31 Labs: Abnormal Lab Results - Last 24 Hours (Table) 03/14/23 Range/Units 15:31 Ammonia 51 H (<30) umol/L Assessment and Plan Assessment: * Altered mental status, unclear cause, perhaps mild encephalopathy, perhaps due to substance abuse. Patient's urine positive for marijuana, opiates and amphetamines. She admits to smoking marijuana, but denies any use of amphetamines. Likewise, patient currently not prescribed opiates although her urine was positive for opiates. * Excessive somnolence, likely related to recently receiving Ativan. Rule out hepatic encephalopathy, with mildly elevated ammonia 34. Her ammonia level worse today 51. * History of alcoholism (mild) * Chronic tobacco use * Recurrent falls, with severe back pain, unclear cause. Her examination is nonfocal. Muscle strength is normal and reflexes are symmetric. * Mild hyponatremia, hypokalemia * Elevated LFTs Plan: * Patient's ammonia level is slightly worse today 51. Patient denies significant alcoholism. Her abdominal ultrasound also revealed enlarged liver and her LFTs are elevated. May consider GI evaluation * Hypokalemia resolved. * Recommend abstinence from substance abuse, including marijuana, high energy drinks. * B12 is normal 424, TSH 0.717. Continue thiamine, folate, multivitamins. * Patient complaining of significant back pain. Her examination is nonfocal. Orthopedic consulted. CT of the lumbar spine initiated, results pending. * Await EEG to rule out any epileptiform activity. * Recommend complete tobacco cessation. * Neurologically clear, if the EEG comes back normal. Addendum: EEG was normal awake and drowsy. No focal, lateralized or epileptiform activity was seen. Neurologically clear for discharge. Recommend follow-up with neurologist outpatient for further management of her leg pain. May need EMG and nerve conductions.
--- NOTE | 2023-03-15 12:50 | P.CNOR ---
History of Present Illness - [facility] Consult date: 03/15/23 Consult reason: low back pain History of present illness: Patient is a 67-year-old female who was admitted to [facility] due to altered mental status and possible DTs. During hospital stay, she is being followed by a few different medical specialties. Patient has been complaining of worsening low back pain and discomfort up to the bilateral lower extremities. Our orthopedic team was consulted for this. Patient was evaluated at bedside, she is resting in the observation room. Patient seems very comfortable initially on exam, she was sleeping and easily awoken. Patient moves around in bed with very minimal difficulty. She was able to lay on her stomach and back and demonstrated no significant discomfort. He states that she's had back pain for many years, she states over the last few weeks the back pain has become progressively worse. She notices radiating pain to the bilateral lower extremities, the right being worse than the left. She states that when she's been walking for any significant amount of time she does notice worsening back pain. She states that she utilizes no assist devices for ambulation. Patient denies any previous back surgery. She denies any loss of bowel or bladder function at this time. She denies any numbness or tingling to the peroneal or genital region. Review of Systems Constitutional: Reports as per HPI Past Medical History Past Medical History: Asthma, GERD/Reflux, Liver Disease, Osteoarthritis (OA) Additional Past Medical History / Comment(s): ELEVATED LIVER ENZYMES., HX OF PERFORATED STOMACH ULCER., sister states patient has HEPATITIS C, epigastric pain, recent admission for taking too much tylenol pm per pt. History of Any Multi-Drug Resistant Organisms: None Reported Past Surgical History: Hernia Repair, Tubal Ligation Additional Past Surgical History / Comment(s): PLASTIC SURGERY TO FOREHEAD, PERFORATED STOMACH ULCER. laser surgery to right leg for varicose veins Past Anesthesia/Blood Transfusion Reactions: No Reported Reaction Past Psychological History: ADD/ADHD, Anxiety, Depression Smoking Status: Current every day smoker Past Alcohol Use History: Daily Past Drug Use History: Marijuana - Past Family History Mother Family Medical History: Cancer Additional Family Medical History / Comment(s): OVARIAN CA Father History Unknown: Yes Additional Family Medical History / Comment(s): father when patient was very young (2 year old), he of a gunshot wound outside of a bar at the age of 23 Medications and Allergies Home Medications Medication Instructions Recorded Confirmed Type Atorvastatin [Lipitor] 40 mg PO HS 08/24/21 03/13/23 History Clopidogrel [Plavix] 75 mg PO DAILY 08/24/21 03/13/23 History Escitalopram [Lexapro] 20 mg PO DAILY 08/24/21 03/13/23 History QUEtiapine [SEROquel] 25 mg PO HS 08/24/21 03/13/23 History rOPINIRole HCL [Requip] 1 mg PO BID 08/24/21 03/13/23 History Allergies Allergy/AdvReac Type Severity Reaction Status Date / Time No Known Allergies Allergy Verified 03/13/23 13:51 Physical Examination Gen: AOx3, NAD VSS stable at this time Integument: No erythema, open lesions, sores present to the lower thoracic and lumbar spine Palpation: No significant tenderness reproduced with palpation to the midline or paraspinal region of the lower thoracic and lumbar spine, no obvious step-off ROM: Full range of motion in all major muscle groups of the bilateral upper and lower extremities, no focal deficits appreciated Sensory Exam: Senory exam to light touch is intact C5-T1 Senosry exam to light touch is intact L2-S1 Motor: 5/5 strength appreciated in the bilateral upper extremities with shoulder urszula vation, shoulder abduction, wrist extension, wrist flexion, elbow extension, elbow flexion, manager statistical 5/5 strength appreciated in the left lower extremity with hip flexion, knee extension, knee flexion, plantar flexion, dorsiflexion, EHL, FHL 5/5 strength appreciated in the right lower extremity with hip flexion, knee extension, knee flexion 4/5 strength appreciated in the right lower extremity with plantar flexion, dorsiflexion, EHL, FHL Reflexes: 2/4 in all UE and LE Negative Cade's bilaterally Negative Babinski bilaterally Negative Clonus bilaterally Special Test: Negative straight leg raise bilaterally Results - Labs Labs: Abnormal Lab Results - Last 24 Hours (Table) 03/14/23 Range/Units 15:31 Ammonia 51 H (<30) umol/L H & H 03/13/23 03/14/23 Range/Units 00:19 06:27 Hgb 12.0 10.6 L (11.4-16.0) gm/dL Hct 35.1 32.3 L (34.0-46.0) % Coagulation 03/13/23 Range/Units 00:19 INR 1.2 H (<1.2) Result Diagrams: 03/14/23 06:27 03/14/23 15:31 - Diagnostic results CT Scan - lumbar: report reviewed, image reviewed Assessment and Plan Assessment: Low back pain Lower extremity radiculopathy, right worse than left Lumbar spondylosis L4-L5, L5-S1 Facet arthropathy L4-L5, L5-S1 Multiple medical comorbidities Plan: Imaging: I was able to review the images and reports of the CT scan of the lumbar spine with my attending Dr. Sandra. No acute fractures or dislocations are present. There is notable lumbar spondylosis involving L4-L5, L5-S1. Also facet arthropathy appreciated in those regions. Overall alignment of the lumbar spine remains adequate Plan: After discussion of both physical exam findings and imaging studies with my attending Dr. Sandra, no emergent orthopedic surgical intervention is recommended. Patient is demonstrating no acute neuropathic signs Recommend conservative measures, this including use of Tylenol, NSAIDs. Could consider the use of a low-dose muscle relaxer. Patient has known alcohol abuse, would recommend avoiding narcotics at this time Patient can be seen in the outpatient setting for further evaluation and discussion. At that time we can consider other treatments, this including physical therapy Please contact our orthopedic service with any further questions regarding the patient
[2023-03-15 14:41] VITALS: BP 154/80; PULSE 91
--- NOTE | 2023-03-15 22:25 | CT ---
EXAMINATION TYPE: CT lumbar spine wo con CT DLP: 1096.9 mGycm, Automated exposure control for dose reduction was used. DATE OF EXAM: 03/15/2023 9:13 AM COMPARISON: None. CLINICAL INDICATION:Female, 67 years old with history of back pain, leg weakness; PHH, BACK PAIN, LEG WEAKNESS TECHNIQUE: Multiple axial images were obtained from the midportion of T11 through the sacroiliac pooja nts. Soft tissue and bone windows in coronal and sagittal planes were obtained and reviewed. 3-D ref ormats of the bones were created on a separate workstation and submitted for review. Contrast used: mL of , none. Oral contrast used: none. FINDINGS: Bones: 5 lumbar-type vertebral bodies. Vertebral body heights are preserved and AP alignment is normal. Ther e is mild levocurvature centered at L2-L3. Mineralization appears appropriate. No evidence for lytic/ blastic lesion. No evidence of compression fracture. Remote incompletely healed fracture of the left L3 transverse process. Visualized sacrum is intact. Mild degenerative change of the SI joints. Disc levels: L1-2 there is mild posterior broad-based disc bulge and mild facet arthrosis and ligamentum flavum th ickening causing mild canal and mild bilateral neural foraminal stenosis. L2-3 there is mild posterior broad-based disc bulge and mild facet arthrosis and ligamentum flavum th ickening causing mild canal and mild bilateral neural foraminal stenosis. L3-4 there is mild posterior broad-based disc bulge and mild facet arthrosis and ligamentum flavum th ickening causing mild canal and mild bilateral neural foraminal stenosis. L4-5 there is moderate broad-based posterior disc bulge and moderate bilateral facet arthropathy and ligamentum flavum thickening causing moderate to severe spinal canal stenosis and moderate bilateral neural foraminal stenosis. L5-S1 there is moderate broad-based posterior disc osteophyte complex, moderate bilateral facet arthr opathy and ligamentum flavum thickening, causing moderate spinal canal stenosis and moderate to sever e bilateral neural foraminal stenosis. This could impinge on either or both exiting nerve roots. There is no clear CT evidence to suggest a focal disc protrusion or other acute intracanalicular abno rmality, in the limits of the exam. Other findings: Moderate to heavy atherosclerotic calcification of the abdominal aorta and branches, with at least mo derate stenosis of the proximal SMA and left renal artery. Calcifications are also present throughout the visualized common iliac arteries, especially heavy in the proximal left iliac region where a sig nificant stenosis could exist. Please correlate with any symptoms. Small calcifications in the renal gabi are likely to be vascular. No hydronephrosis. Appendix appears within normal limits. Unremarkable bowel. No mass of the visualized adrenals. No ret roperitoneal adenopathy. Visualized portion of the bladder is grossly unremarkable. Uterus is present . No free pelvic fluid is seen. Note: CT provides good assessment of osseous structures, but is limited in evaluation of the soft tissues, including the spinal canal, contents, and neural foramina. If clinically warranted, MRI could provide further evaluation of these limitations, and can also help to assess for marrow edema in the case of compression fractures of unknown age. IMPRESSION: 1. No acute osseous abnormality of the lumbar spine. 2. Multilevel lumbar spondylosis, with various degrees of canal and neural foraminal stenosis, detail ed level by level above.
--- NOTE | 2023-03-16 01:50 | EEG ---
ELECTROENCEPHALOGRAM REPORT PREAMBLE: This is a 67-year-old female with altered mental status, came with recurrent falls. This study is performed to evaluate for any epileptiform activity. EEG FINDINGS: This is a 21-channel digital EEG recorded with video component, utilizing 10/20 international system with referential and bipolar montages. Background consists of moderately well-developed and regulated, mixed frequencies of 8 to 9 hertz alpha, with some fast frequency beta activity seen in bihemispheric region. Background seems to be slightly reactive to eye opening or closing. Photic driving response was not clearly seen. Different stages of sleep were not seen. No focal or generalized epileptiform activity was seen. EKG channel showed no obvious arrhythmia. IMPRESSION: This is a normal awake and drowsy EEG. No focal, lateralized or epileptiform activity was seen. MMODL / IJN: [id number] /
== END 2023-03-15 16:00 | disposition home or self-care (01) | DRG 441 ==
LOC: EC 21:32 → 4SSUR 03-13 02:13 → 1SOBS 03-13 14:25
PROVIDERS: ADMIT Family Medicine; ATTEND Family Medicine
DX: K76.82 Hepatic encephalopathy (principal); G92.8 Other toxic encephalopathy; E87.1 Hypo-osmolality and hyponatremia; E87.20 Acidosis, unspecified; F10.131 Alcohol abuse with withdrawal delirium; M54.10 Radiculopathy, site unspecified; M47.816 Spondylosis without myelopathy or radiculopathy, lumbar region; K21.9 Gastro-esophageal reflux disease without esophagitis; K76.9 Liver disease, unspecified; M19.90 Unspecified osteoarthritis, unspecified site; J44.89 Other specified chronic obstructive pulmonary disease; G89.29 Other chronic pain; T40.605A Adverse effect of unspecified narcotics, initial encounter; T43.625A Adverse effect of amphetamines, initial encounter; R16.0 Hepatomegaly, not elsewhere classified; G25.81 Restless legs syndrome; F90.9 Attention-deficit hyperactivity disorder, unspecified type; F41.1 Generalized anxiety disorder; F32.A Depression, unspecified; R29.6 Repeated falls; F17.210 Nicotine dependence, cigarettes, uncomplicated; D69.6 Thrombocytopenia, unspecified; E83.42 Hypomagnesemia; E87.6 Hypokalemia; R74.01 Elevation of levels of liver transaminase levels; K76.0 Fatty (change of) liver, not elsewhere classified; Z91.51 Personal history of suicidal behavior; Z79.899 Other long term (current) drug therapy; Z79.02 Long term (current) use of antithrombotics/antiplatelets; Z86.19 Personal history of other infectious and parasitic diseases; Z71.41 Alcohol abuse counseling and surveillance of alcoholic; Z71.51 Drug abuse counseling and surveillance of drug abuser
CPT/HCPCS: 36415; 70450; 72131; 76700; 80053; 80143; 80179; 80306; 80320; 82140; 82607; 82747; 82803; 83605; 83690; 83735; 84100; 84132; 84145; 84443; 84484; 85025; 85610; 85652; 85730; 86140; 93005; 94640; 94760; 95816; 96361; 96365; 96375; 96376; 99291

== ENCOUNTER 2023-08-24 19:38 | Emergency (ER) | payer MEDICARE, OTHER ==
--- NOTE | 2023-08-24 20:40 | ED ---
Alcohol HPI - General Source: patient, police, EMS, RN notes reviewed Mode of arrival: EMS Limitations: no limitations <Gabi Mcwilliams - Last Filed: 08/24/23 20:38> <Chirag White - Last Filed: 08/25/23 08:54> - General Source: patient, EMS, RN notes reviewed, old records reviewed Mode of arrival: EMS Limitations: no limitations, language barrier - History of Present Illness MD Complaint: alcohol intoxication Last Drink: just [employer] Previous Visits for Alcohol Intoxication?: Yes Recent Trauma: Yes Treatments Prior to Arrival: none Chronic Alcohol Use: Yes <Jose Isidro - Last Filed: 09/03/23 21:37> - General Chief Complaint: Alcohol Stated Complaint: Petition Time Seen by Provider: 08/24/23 20:38 - History of Present Illness Initial Comments: Quick note: 67-year-old female presented to the ER with a chief complaint of alcohol intoxication. Patient is brought in by PD after an argument with her sister. Patient reports that she drinks rum and Vernors daily last drink a couple of hour ago. Patient denies any current complaints. (Gabi Mcwilliams) This is a 67-year-old female under psychiatric evaluation under petition for psychiatric evaluation with significant alcohol intoxication (Jose Isidro) - Related Data Home Medications Medication Instructions Recorded Confirmed Atorvastatin [Lipitor] 40 mg PO HS 08/24/21 03/13/23 Clopidogrel [Plavix] 75 mg PO DAILY 08/24/21 03/13/23 Escitalopram [Lexapro] 20 mg PO DAILY 08/24/21 03/13/23 QUEtiapine [SEROquel] 25 mg PO HS 08/24/21 03/13/23 rOPINIRole HCL [Requip] 1 mg PO BID 08/24/21 03/13/23 Previous Rx's Medication Instructions Recorded Folic Acid 1 mg PO DAILY tab 03/15/23 Multivitamins, Thera [Multivitamin 1 each PO DAILY tab 03/15/23 (formulary)] Thiamine [Vitamin B-1] 100 mg PO DAILY tab 03/15/23 Allergies Allergy/AdvReac Type Severity Reaction Status Date / Time No Known Allergies Allergy Verified 08/24/23 19:41 Review of Systems ROS Other: All systems not noted in ROS Statement are negative. <Gabi Mcwilliams - Last Filed: 08/24/23 20:38> ROS Other: All systems not noted in ROS Statement are negative. <Chirag White - Last Filed: 08/25/23 08:54> ROS Other: All systems not noted in ROS Statement are negative. <Sarah BethJose rojo - Last Filed: 09/03/23 21:37> ROS Statement: Those systems with pertinent positive or pertinent negative responses have been documented in the HPI. Past Medical History Past Medical History: Asthma, GERD/Reflux, Liver Disease, Osteoarthritis (OA) Additional Past Medical History / Comment(s): ELEVATED LIVER ENZYMES., HX OF PERFORATED STOMACH ULCER., sister states patient has HEPATITIS C, epigastric pain, recent admission for taking too much tylenol pm per pt. History of Any Multi-Drug Resistant Organisms: None Reported Past Surgical History: Hernia Repair, Tubal Ligation Additional Past Surgical History / Comment(s): PLASTIC SURGERY TO FOREHEAD, PERFORATED STOMACH ULCER. laser surgery to right leg for varicose veins Past Anesthesia/Blood Transfusion Reactions: No Reported Reaction Past Psychological History: ADD/ADHD, Anxiety, Depression Smoking Status: Current every day smoker Past Alcohol Use History: Daily, Heavy Past Drug Use History: Marijuana, Methamphetamine, Prescription Drug Abuse - Past Family History Mother Family Medical History: Cancer Additional Family Medical History / Comment(s): OVARIAN CA Father History Unknown: Yes Additional Family Medical History / Comment(s): father when patient was very young (2 year old), he of a gunshot wound outside of a bar at the age of 23 <Gabi Mcwilliams - Last Filed: 08/24/23 20:38> General Exam Limitations: no limitations <Gabi Mcwilliams - Last Filed: 08/24/23 20:38> General appearance: appears intoxicated, anxious Head exam: Present: atraumatic, normocephalic, normal inspection Eye exam: Present: normal appearance, PERRL, EOMI. Absent: scleral icterus, conjunctival injection, periorbital swelling ENT exam: Present: normal exam, mucous membranes moist Neck exam: Present: normal inspection. Absent: tenderness, meningismus, lymphadenopathy Respiratory exam: Present: normal lung sounds bilaterally. Absent: respiratory distress, wheezes, rales, rhonchi, stridor Cardiovascular Exam: Present: regular rate, normal rhythm, normal heart sounds. Absent: systolic murmur, diastolic murmur, rubs, gallop, clicks GI/Abdominal exam: Present: soft, normal bowel sounds. Absent: distended, tenderness, guarding, rebound, rigid Extremities exam: Present: normal inspection, full ROM, normal capillary refill. Absent: tenderness, pedal edema, joint swelling, calf tenderness Back exam: Present: normal inspection Neurological exam: Present: alert, oriented X3, CN II-XII intact Psychiatric exam: Present: normal affect, normal mood Skin exam: Present: warm, dry, intact, normal color. Absent: rash <Jose Isidro - Last Filed: 09/03/23 21:37> - General Exam Comments Initial Comments: Visual Physical Exam Vital signs reviewed General: Well-appearing, nontoxic, no acute distress. Intoxicated Head: Normocephalic, atraumatic Eyes: PERRLA, EOMI ENT: Airway patent Chest: Nonlabored breathing Skin: No visual rash, normal skin tone Neuro: Alert and oriented 3 Musculoskeletal: No gross abnormalities (Gabi Mcwilliams) Course <Jose Isidro - Last Filed: 09/03/23 21:37> Vital Signs 08/24/23 08/24/23 08/25/23 19:42 23:00 01:00 Temperature 98.1 F Pulse Rate 102 H 74 86 Respiratory 18 18 18 Rate Blood Pressure 149/84 131/79 152/68 O2 Sat by Pulse 96 95 100 Oximetry 08/25/23 08/25/23 08/25/23 04:00 06:00 07:33 Temperature 98.1 F 97.7 F Pulse Rate 84 83 90 Respiratory 22 20 20 Rate Blood Pressure 166/96 148/96 149/94 O2 Sat by Pulse 98 97 98 Oximetry 08/25/23 09:15 Temperature 97.7 F Pulse Rate 89 Respiratory 20 Rate Blood Pressure 125/91 O2 Sat by Pulse 99 Oximetry - Reevaluation(s) Reevaluation #1: 08/24/23 22:49 Medical records reviewed (Jose Isidro) Reevaluation #2: Patient symptoms are improved here in the ER (Jose Isidro) Reevaluation #3: Was pt. sent in by a medical professional or institution (Dr., PA, QUANTITATIVE RESEARCHER, urgent care, hospital, or group home...) When possible be specific @ -no Did you speak to anyone other than the patient for history (EMS, parent, family, police, friend...)? What history was obtained from this source @ -no Did you review nursing and triage notes (agree or disagree)? Why? @ -agree Are old charts reviewed (outside hosp., previous admission, EMS record, old EKG, old radiological studies, urgent care reports/EKG's, group home records)? Report findings @ -yes Differential Diagnosis (chest pain, altered mental status, abdominal pain women, abdominal pain men, vaginal bleeding, weakness, fever, dyspnea, syncope, headache, dizziness, GI bleed, back pain, seizure, CVA, palpatations, mental health, musculoskeletal)? @ -prior EKG interpreted by me (3pts min.). @ -no X-rays interpreted by me (1pt min.). @ -no CT interpreted by me (1pt min.). @ -no U/S interpreted by me (1pt. min.). @ -no What testing was considered but not performed or refused? (CT, X-rays, U/S, labs)? Why? @ -none What meds were considered but not given or refused? Why? @ -none Did you discuss the management of the patient with other professionals (professionals i.e. NORMAN Merino, QUANTITATIVE RESEARCHER, lab, RT, psych nurse, social science analyst, auto wrecker, teacher, traffic division commanding officer, dependency case manager)? Give summary @ -no Was smoking cessation discussed for >3mins.? @ -no Was critical care preformed (if so, how long)? @ -no Were there social determinants of health that impacted care today? How? (Homele ssness, low income, unemployed, alcoholism, drug addiction, transportation, low edu. Level, literacy, decrease access to med. care, [place] [facility], rehab)? @ -none Was there de-escalation of care discussed even if they declined (Discuss DNR or withdrawal of care, Hospice)? DNR status @ -no What co-morbidities impacted this encounter? (DM, HTN, Smoking, COPD, CAD, Cancer, CVA, ARF, Chemo, Hep., AIDS, mental health diagnosis, sleep apnea, morbid obesity)? @ -none Was patient admitted / discharged? Hospital course, mention meds given and route, prescriptions, significant lab abnormalities, going to OR and other pertinent info. @ -67 female for alcohol intoxication and depression Undiagnosed new problem with uncertain prognosis? @ -no Drug Therapy requiring intensive monitoring for toxicity (Heparin, Nitro, Insulin, Cardizem)? @ -no Were any procedures done? @ -no Diagnosis/symptom? @ -Alcohol intoxication and depression Acute, or Chronic, or Acute on Chronic? @ -Acute Uncomplicated (without systemic symptoms) or Complicated (systemic symptoms)? @ -Complicated Side effects of treatment? @ -no Exacerbation, Progression, or Severe Exacerbation? @ -exacerbation Poses a threat to life or bodily function? How? (Chest pain, [place], AL, pneumonia, PE, COPD, DKA, ARF, appy, cholecystitis, CVA, Diverticulitis, Homicidal, Suicidal, threat to staff... and all critical care pts) @ -yes severe intoxication (Jose Isidro) Reevaluation #4: Differential Mental Health Depression, anxiety, bipolar, psychosis, schizophrenia, borderline personality, situational depression, adjustment disorder, behavioral disorder, brain tumor, malingering, substance abuse, encephalopathy, medication reaction, dementia, hypothyroidism, degenerative neurologic disorder, lupus.... This is not meant to be all-inclusive list (Jose Isidro) Medical Decision Making <Gabi Mcwilliams - Last Filed: 08/24/23 20:38> - Lab Data Result diagrams: 08/24/23 21:15 08/24/23 21:15 <Chirag White - Last Filed: 08/25/23 08:54> - Lab Data Result diagrams: 08/24/23 21:15 08/24/23 21:15 <Jose Isidro - Last Filed: 09/03/23 21:37> - Medical Decision Making I performed the quick note portion of this chart. Electronically signed by Cr Mcwilliams PA-C (Gabi Mcwilliams) Patient is a 67-year-old female presents emergency department for alcohol intoxication was petition. Medically cleared by previous provider. Was awaiting EPS evaluation. When sober, EPS time evaluated the patient and after discussion with psychiatry and myself determined patient does not meet inpatient psychiatric criteria. Patient be discharged home with a safety plan. I am in agreement with this plan. Patient is in agreement this plan. Diagnosis/symptom? @ -Encounter for psychiatric evaluation, alcohol intoxication Acute, or Chronic, or Acute on Chronic? @ -Acute Uncomplicated (without systemic symptoms) or Complicated (systemic symptoms)? @ -Uncomplicated Side effects of treatment? @ -None Exacerbation, Progression, or Severe Exacerbation] @ -No Poses a threat to life or bodily function? @ -Unlikely (Chirag White) - Lab Data Lab Results 08/24/23 08/24/23 08/25/23 Range/Units 21:15 21:15 07:32 WBC 8.1 (3.8-10.6) k/uL RBC 4.35 (3.80-5.40) m/uL Hgb 13.7 (11.4-16.0) gm/dL Hct 41.9 (34.0-46.0) % MCV 96.2 (80.0-100.0) fL MCH 31.4 (25.0-35.0) pg MCHC 32.6 (31.0-37.0) g/dL RDW 14.2 (11.5-15.5) % Plt Count 185 (150-450) k/uL MPV 8.1 Neutrophils % 57 % Lymphocytes % 35 % Monocytes % 5 % Eosinophils % 1 % Basophils % 0 % Neutrophils # 4.6 (1.3-7.7) k/uL Lymphocytes # 2.9 (1.0-4.8) k/uL Monocytes # 0.4 (0-1.0) k/uL Eosinophils # 0.1 (0-0.7) k/uL Basophils # 0.0 (0-0.2) k/uL Sodium 148 H (137-145) mmol/L Potassium 3.4 L (3.5-5.1) mmol/L Chloride 113 H (98-107) mmol/L Carbon Dioxide 26 (22-30) mmol/L Anion Gap 9 mmol/L BUN 14 (7-17) mg/dL Creatinine 0.53 (0.52-1.04) mg/dL Est GFR (CKD-EPI)AfAm >90 (>60 ml/min/1.73 sqM) Est GFR (CKD-EPI)NonAf >90 (>60 ml/min/1.73 sqM) Glucose 148 H (74-99) mg/dL Calcium 8.7 (8.4-10.2) mg/dL Phosphorus 4.2 (2.5-4.5) mg/dL Magnesium 1.5 L (1.6-2.3) mg/dL Total Bilirubin 1.0 (0.2-1.3) mg/dL AST 188 H (14-36) U/L ALT 89 H (4-34) U/L Alkaline Phosphatase 101 (38-126) U/L Total Protein 8.7 H (6.3-8.2) g/dL Albumin 4.6 (3.5-5.0) g/dL Lipase 105 (23-300) U/L Urine Color Light Yellow Urine Appearance Clear (Clear) Urine pH 6.5 (5.0-8.0) Ur Specific Palmer 1.014 (1.001-1.035) Urine Protein Negative (Negative) Urine Glucose (UA) Negative (Negative) Urine Ketones Negative (Negative) Urine Blood Trace H (Negative) Urine Nitrite Negative (Negative) Urine Bilirubin Negative (Negative) Urine Urobilinogen <2.0 (<2.0) mg/dL Ur Leukocyte Esterase Negative (Negative) Urine RBC 2 (0-5) /hpf Urine WBC 1 (0-5) /hpf Ur Squamous Epith Cells <1 (0-4) /hpf Urine Mucus Rare H (None) /hpf Serum Alcohol 231 H* mg/dL Disposition <Gabi Mcwilliams - Last Filed: 08/24/23 20:38> Is patient prescribed a controlled substance at d/c from ED?: No Time of Disposition: 08:43 <Chirag White - Last Filed: 08/25/23 08:54> <Jose Isidro - Last Filed: 09/03/23 21:37> Clinical Impression: Encounter for psychiatric assessment, Alcoholic intoxication Disposition: HOME SELF-CARE Condition: Good Instructions (If sedation given, give patient instructions): Alcohol Intoxication (ED) Additional Instructions: follow safety plan Referrals: Dnany Pedersen MD [Primary Care Provider] - 1-2 days
[2023-08-24] MEDS ORDERED: LORazepam 0.5 MG TAB PO PRN (21:41)
[2023-08-24] MEDS ORDERED: LORazepam 1 MG TAB PO PRN ×3 (21:41)
[2023-08-24] MEDS ORDERED: LORazepam 2 MG/ML INJ IV PRN ×2 (21:41)
[2023-08-24] MEDS: HALOPERIDOL LACTATE 5 MG/ML 1 ML VIAL IM STA (22:03)
[2023-08-24 22:05] LABS: Basophils % (A) 0 %; Eosinophils # (A) 0.1 k/uL (0-0.7); Eosinophils % (A) 1 %; HCT 41.9 % (34.0-46.0); HGB 13.7 gm/dL (11.4-16.0); Lymphocytes # (A) 2.9 k/uL (1.0-4.8); Lymphocytes % (A) 35 %; MCH 31.4 pg (25.0-35.0); MCHC 32.6 g/dL (31.0-37.0); MCV 96.2 fL (80.0-100.0); Mean Platelet Volume 8.1; Monocytes # (A) 0.4 k/uL (0-1.0); Monocytes % (A) 5 %; Neutrophils # (A) 4.6 k/uL (1.3-7.7); Neutrophils % (A) 57 %; Platelet Count 185 k/uL (150-450); RBC 4.35 m/uL (3.80-5.40); RDW 14.2 % (11.5-15.5); WBC 8.1 k/uL (3.8-10.6)
[2023-08-24] MEDS: SODIUM CHLORIDE 0.9% 1,000 ML IV STA (22:05)
[2023-08-24] MEDS: SODIUM CHLORIDE 0.9% 500 ML 500 ML IV STA (22:06)
[2023-08-24] MEDS: LORazepam 2 MG/ML INJ IV PRN (22:09)
[2023-08-24 22:20] LABS: ALT 89 U/L (4-34); AST 188 U/L (14-36); African American GFR (CKD) >90 (>60 ml/min/1.73 sqM); Albumin 4.6 g/dL (3.5-5.0); Alkaline Phosphatase 101 U/L (38-126); Anion Gap 9 mmol/L; Blood Urea Nitrogen 14 mg/dL (7-17); Calcium 8.7 mg/dL (8.4-10.2); Carbon Dioxide 26 mmol/L (22-30); Chloride 113 mmol/L (98-107); Glucose 148 mg/dL (74-99); Lipase 105 U/L (23-300); Magnesium 1.5 mg/dL (1.6-2.3); Non-African American GFR(CKD) >90 (>60 ml/min/1.73 sqM); Phosphorus 4.2 mg/dL (2.5-4.5); Potassium 3.4 mmol/L (3.5-5.1); Sodium 148 mmol/L (137-145); Total Protein 8.7 g/dL (6.3-8.2)
[2023-08-24 22:58] LABS: Alcohol 231 mg/dL
--- NOTE | 2023-08-25 02:53 | CT ---
EXAM: CT Head Without Intravenous Contrast CLINICAL HISTORY: ITS.REASON CT Reason: fall TECHNIQUE: Axial computed tomography images of the head/brain without intravenous contrast. CTDI is 45.2 mGy and DLP is 1005 mGy-cm. This CT exam was performed using one or more of the following dose reduction techniques: automated exposure control, adjustment of the mA and/or kV according to patient size, and/or use of iterative reconstruction technique. COMPARISON: No relevant prior studies available. FINDINGS: No acute intracranial hemorrhage. No midline shift or mass effect. The territorial cmcartney-white matter differentiation is maintained throughout. Age-related cerebral volume loss. Periventricular and subcortical white matter hypoattenuation, consistent with chronic microangiopathy. The visualized orbits appear grossly unremarkable. The calvarium is intact. The visualized paranasal sinuses and mastoid air cells are grossly clear. IMPRESSION: No acute intracranial hemorrhage, midline shift, or mass effect. EXAM: CT Cervical Spine Without Intravenous Contrast CLINICAL HISTORY: ITS.REASON CT Reason: fall TECHNIQUE: Axial computed tomography images of the cervical spine without intravenous contrast. CTDI is 11.9 mGy and DLP is 353.6 mGy-cm. This CT exam was performed using one or more of the following dose reduction techniques: automated exposure control, adjustment of the mA and/or kV according to patient size, and/or use of iterative reconstruction technique. COMPARISON: No relevant prior studies available. FINDINGS: The vertebral body heights are maintained. The craniocervical junction is intact. The atlanto-dens interval is maintained. The dens is intact. There is no spondylolisthesis. Multilevel cervical spondylosis and degenerative disc disease. Straightening of the cervical lordosis. The unenhanced neck soft tissues are grossly unremarkable. The visualized lung apices are grossly clear. IMPRESSION: No acute fracture or subluxation of the cervical spine.
[2023-08-25 06:38] VITALS: RESP 20
[2023-08-25 07:35] VITALS: TEMP 97.7
[2023-08-25 07:38] LABS: Appearance,Urine Clear (Clear); Bilirubin,Urine Negative (Negative); Blood,Urine Trace (Negative); Color,Urine Light Yellow; Glucose,Urine (UA) Negative (Negative); Ketones,Urine Negative (Negative); Leukocyte Esterase,Urine Negative (Negative); Mucus,Urine Rare /hpf; Nitrite,Urine Negative (Negative); PH, Urine 6.5 (5.0-8.0); Protein,Urine Negative (Negative); RBC,Urine 2 /hpf (0-5); Specific Gravity,Urine 1.014 (1.001-1.035); Squamous Epithelial Cell,Urine <1 /hpf (0-4); Urobilinogen,Urine <2.0 mg/dL (<2.0); WBC,Urine 1 /hpf (0-5)
[2023-08-25 09:18] VITALS: BP 125/91; PULSE 89
== END 2023-08-25 09:18 | disposition home or self-care (01) ==
LOC: EC 19:38
DX: Z00.8 Encounter for other general examination (principal); F10.129 Alcohol abuse with intoxication, unspecified; F17.200 Nicotine dependence, unspecified, uncomplicated; F12.90 Cannabis use, unspecified, uncomplicated; F15.90 Other stimulant use, unspecified, uncomplicated; Y90.7 Blood alcohol level of 200-239 mg/100 ml
CPT/HCPCS: 36415; 80053; 83690; 83735; 84100; 85025; 81001; 72125; 70450; 99284; 96374; 96372; 96361; G0480; J2060; J1630; 80320

== ENCOUNTER 2024-02-13 17:45 | Inpatient (IN) | payer MEDICARE, OTHER ==
[2024-02-13] MEDS: THIAMINE 100 MG/ML 2 ML VIAL IVP STA (18:45)
[2024-02-13] MEDS: SODIUM CHLORIDE 0.9% 1,000 ML IV ONE (18:45)
[2024-02-13 18:53] LABS: Basophils % (A) 0 %; Eosinophils # (A) 0.1 k/uL (0-0.7); Eosinophils % (A) 1 %; HGB 11.4 gm/dL (11.4-16.0); Lymphocytes # (A) 1.4 k/uL (1.0-4.8); Lymphocytes % (A) 35 %; MCH 32.1 pg (25.0-35.0); MCHC 33.7 g/dL (31.0-37.0); MCV 95.1 fL (80.0-100.0); Mean Platelet Volume 8.7; Monocytes # (A) 0.4 k/uL (0-1.0); Monocytes % (A) 10 %; Neutrophils # (A) 2.1 k/uL (1.3-7.7); Neutrophils % (A) 52 %; Platelet Count 108 k/uL (150-450); RBC 3.57 m/uL (3.80-5.40); RDW 13.2 % (11.5-15.5); WBC 4.1 k/uL (3.8-10.6)
[2024-02-13 19:03] LABS: Partial Thromboplastin Time 25.6 sec (22.0-30.0); Prothrombin Time 11.3 sec (10.0-12.5)
[2024-02-13 19:07] LABS: ALT 63 U/L (4-34); AST 100 U/L (14-36); Acetaminophen <10.0 ug/mL; African American GFR (CKD) >90 (>60 ml/min/1.73 sqM); Albumin 3.8 g/dL (3.5-5.0); Alcohol <10 mg/dL; Alkaline Phosphatase 86 U/L (38-126); Anion Gap 7 mmol/L; Blood Urea Nitrogen 8 mg/dL (7-17); Calcium 8.6 mg/dL (8.4-10.2); Carbon Dioxide 28 mmol/L (22-30); Chloride 104 mmol/L (98-107); Glucose 91 mg/dL (74-99); Non-African American GFR(CKD) >90 (>60 ml/min/1.73 sqM); Potassium 3.5 mmol/L (3.5-5.1); Salicylate <1.0 mg/dL; Sodium 139 mmol/L (137-145); Total Bilirubin 0.6 mg/dL (0.2-1.3); Total Protein 7.6 g/dL (6.3-8.2)
--- NOTE | 2024-02-13 20:06 | CT ---
EXAMINATION TYPE: CT brain wo con CT DLP: 1591.5 mGycm, Automated exposure control for dose reduction was used. DATE OF EXAM: 02/13/2024 7:33 PM COMPARISON: CT head 08/25/2023. CLINICAL INDICATION:Female, 68 years old with history of AMS, seizure like activity recent admission, Recently hospitalized for stroke symptoms, right arm twitching and weakness x 2 days. TECHNIQUE: Brain: Axial CT images of the brain were obtained with coronal and sagittal reformats created and rev iewed. Contrast used: None. Oral contrast used: None. FINDINGS: Brain: Extra-axial spaces: No abnormal extra-axial fluid collections. Ventricular system: Dilatation in proportion to cerebral atrophy. Cerebral parenchyma: Cerebral atrophy. No acute intraparenchymal hemorrhage or mass effect. The mccartney -white junction is well differentiated. Scattered hypoattenuating areas are seen within the white mat ter. Left basal ganglia mineralization. Cerebellum: Unremarkable. Mass effect: No evidence of midline shift. Intracranial vasculature: Atherosclerotic calcifications of the intracranial vessels. Soft tissues: Normal. Calvarium/osseous structures: No depressed skull fracture. Paranasal sinuses and mastoid air cells: Mild scattered paranasal sinus disease. Visualized orbits: Orbital contents are intact. IMPRESSION: 1. No acute intracranial process. 2. Nonspecific white matter changes, likely secondary to chronic small vessel ischemic disease. [facility], , 02/13/2024 8:03 PM
--- NOTE | 2024-02-13 20:25 | ED ---
General Adult HPI - General Chief complaint: Neuro Symptoms/Deficit Stated complaint: poss stroke Time Seen by Provider: 02/13/24 17:58 Source: patient, family Mode of arrival: wheelchair Limitations: no limitations - History of Present Illness Initial comments: Patient is a 68-year-old female with a past medical history of alcohol abuse, meth abuse, possible seizure disorder presenting today for altered mental status. History is provided by patient's daughter, is limited by patient's altered mental status. Patient's daughter reports that the patient had presented here 2 weeks ago and states that she either diagnosed with a "seizure or stroke" and a "mass near her neck", so was transferred down to [facility] and spent two weeks there. Patient's daughter states she was unable to visit the patient for the last 2 weeks and they had considered sending her to an assisted living facility stating that she should not be left at home alone but ultimately patient's daughter was able to set up patient to live with the patient's sister where she is not alone, though her sister is chronically ill as well. Patient's daughter states the patient has not been herself since admission to the hospital. Today they were out shopping around 330 when the patient began to have twitching of her right upper extremity and turning her head to the right side. The patient's daughter grabbed her hand and asked her to squeeze her hand and patient was unable to. The symptoms have since resolved and patient's daughter states that her symptoms have been improving since arrival to the ER. Last known normal is uncertain as patient's daughter states that she has not been normal since admission to the hospital recently and has been especially confused since discharge 2 days ago. The patient is oriented x 1-2 and is confused so is unable to provide history though denies any recent alcohol or methamphetamine use. Patient has recently been placed on Keppra and patient daughter states that she is taking her medications as prescribed though she is unsure if patient is taken any extra medications. Patient's daughter states the patient may have fell on yesterday in the kitchen though is unsure if she hit her head or not. The patient denies any chest pain or pain otherwise. Pt is not on blood thinners. Daughter states is also seems the patient has been hallucinating, such as when they were driving the other day and she stated that a man was driving the car that was not. - Related Data Home Medications Medication Instructions Recorded Confirmed Atorvastatin [Lipitor] 40 mg PO HS 08/24/21 02/13/24 Clopidogrel [Plavix] 75 mg PO DAILY 08/24/21 02/13/24 Escitalopram [Lexapro] 20 mg PO DAILY 08/24/21 02/13/24 QUEtiapine [SEROquel] 25 mg PO HS 08/24/21 02/13/24 rOPINIRole HCL [Requip] 1 mg PO BID 08/24/21 02/13/24 Divalproex [Depakote] 500 mg PO Q8H 02/13/24 02/13/24 Magnesium Oxide [Magox 400] 400 mg PO BID 02/13/24 02/13/24 levETIRAcetam [Keppra] 1,500 mg PO BID 02/13/24 02/13/24 Allergies Allergy/AdvReac Type Severity Reaction Status Date / Time No Known Allergies Allergy Verified 02/13/24 17:46 Review of Systems ROS Statement: Those systems with pertinent positive or pertinent negative responses have been documented in the HPI. Limitations: ROS unobtainable due to patients medical condition Past Medical History Past Medical History: Asthma, CVA/TIA, GERD/Reflux, Liver Disease, Osteoarthritis (OA) Additional Past Medical History / Comment(s): ELEVATED LIVER ENZYMES., HX OF PERFORATED STOMACH ULCER., sister states patient has HEPATITIS C, epigastric pain, recent admission for taking too much tylenol pm per pt. Etoh withdrawal seizures History of Any Multi-Drug Resistant Organisms: None Reported Past Surgical History: Hernia Repair, Tubal Ligation Additional Past Surgical History / Comment(s): PLASTIC SURGERY TO FOREHEAD, PERFORATED STOMACH ULCER. laser surgery to right leg for varicose veins Past Anesthesia/Blood Transfusion Reactions: No Reported Reaction Past Psychological History: ADD/ADHD, Anxiety, Depression Smoking Status: Current every day smoker Past Alcohol Use History: Daily, Heavy Past Drug Use History: Marijuana, Methamphetamine, Prescription Drug Abuse - Past Family History Mother Family Medical History: Cancer Additional Family Medical History / Comment(s): OVARIAN CA Father History Unknown: Yes Additional Family Medical History / Comment(s): father when patient was very young (2 year old), he of a gunshot wound outside of a bar at the age of 24 General Exam - General Exam Comments Initial Comments: PE: CONSTITUTIONAL: No apparent distress, well appearing though disheveled SKIN: Warm, dry, no jaundice, hives or petechiae, no bruising or abrasions EYES: Pupils are equally round, extraocular movements intact without nystagmus, clear conjunctiva, non-icteric sclera HENT: Normocephalic, atraumatic, moist mucus membranes, oropharynx clear without exudates NECK: , Full range of motion, normal appearance PULMONARY: Clear to auscultation without wheezes, rhonchi, or rales, normal excursion, no accessory muscle use and no stridor CARDIOVASCULAR: Regular rate, rhythm, normal S1 and S2. No appreciated murmurs, rubs or gallops. Strong radial pulses with intact distal perfusion. No lower extremity edema GASTROINTESTINAL: Soft, active bowel sounds throughout, non-tender, non- distended, no palpable masses, no rebound or guarding. No hepatosplenomegaly GENITOURINARY: MUSCULOSKELETAL: Extremities have no gross deformity, no edema, redness, or sw elling. No calf swelling NEUROLOGIC:_a/o x 1-2, initially states she is at "[employer]" in [place], then with prompting states that she is in the hospital, able to recognize her daughter, however because her stepson her boyfriend, intermittently able to follow commands, able to track finger through all 4 quadrants of her visual biswas and they do appear intact however visual field exam is limited by patient's confusion i.e. when 4 fingers are held up, she states "44" and then "[id number]". Unable to assess coordination due to patient's inability to cooperate wth that portion of exam, some slight drift in RUE when held up, patient state's possible decreased sensation in RLE, no neglect, GCS 14, speech is clear though does seem to have some expressive aphasia PSYCHIATRIC:_normal mood and affect, thought process is pleasantly confused Limitations: no limitations Course Vital Signs 02/13/24 02/13/24 17:47 23:07 Temperature 98.2 F Pulse Rate 77 71 Respiratory 18 18 Rate Blood Pressure 148/79 159/92 O2 Sat by Pulse 95 98 Oximetry EKG Findings - EKG Comments: EKG Findings:: Sinus rhythm, left axis deviation, rate 76 bpm, DC interval 162 ms, QRS duration 88 ms, QT/QTc 405/436 ms, T wave inversion, V3, V4, V5, no ST elevations or depressions, no arrhythmia Medical Decision Making - Medical Decision Making Was pt. sent in by a medical professional or institution (, PA, MEDICAL FRONT DESK COORDINATOR, urgent care, hospital, or senior care...) When possible be specific @ -No Did you speak to anyone other than the patient for history (EMS, parent, family, police, friend...)? What history was obtained from this source @Patient's daughter provided vast majority of history Did you review nursing and triage notes (agree or disagree)? Why? @ -I reviewed and agree with nursing and triage notes Were old charts reviewed (outside hosp., previous admission, EMS record, old EKG, old radiological studies, urgent care reports/EKG's, senior care records)? Report findings @Medical records reviewed, of note the patient's daughter states the patient was here about 2 weeks ago and needed transfer to [facility] there are no records from a visit 2 weeks ago, most recent visit was in August 2023 when patient had presented for alcohol intoxication. Differential Diagnosis (chest pain, altered mental status, abdominal pain women, abdominal pain men, vaginal bleeding, weakness, fever, dyspnea, syncope, headache, dizziness, GI bleed, back pain, seizure, CVA, palpatations, mental health, musculoskeletal)? @Differential Altered Mental Status: Hypoglycemia, Warnicke's encephalopathy DKA, hypercapnia, ETOH, overdose, CO poisoning, trauma, myxedema coma, HTN encephalopathy, infection, encephalitis, p sychosis, intercranial hemorrhage, hepatic encephalopathy, meningitis, CVA, this is not meant to be an all-inclusive list EKG interpreted by me (3pts min.). @ -As above X-rays interpreted by me (1pt min.). Chest x-ray does not show any cardiomegaly, consolidations or pleural effusions CT interpreted by me (1pt min.). CT brain shows no evidence of hemorrhage, CTA shows no evidence of dissection or large vessel occlusion, no masses noted on CT brain or C-spine U/S interpreted by me (1pt. min.). @ -None done What testing was considered but not performed or refused? (CT, X-rays, U/S, labs)? Why? @ -None What meds were considered but not given or refused? Why? @ -None Did you discuss the management of the patient with other professionals (professionals i.e. , PA, MEDICAL FRONT DESK COORDINATOR, lab, RT, psych nurse, nursing home social worker, manager investment, teacher, safety patrol officer, upper caser)? Give summary @ -No Was smoking cessation discussed for >3mins.? @ -No Was critical care preformed (if so, how long)? @ -No Were there social determinants of health that impacted care today? How? (Homelessness, low income, unemployed, alcoholism, drug addiction, transportation, low edu. Level, literacy, decrease access to med. care, correction, rehab)? @ -No Was there de-escalation of care discussed even if they declined (Discuss DNR or withdrawal of care, Hospice)? @ -No What co-morbidities impacted this encounter? (DM, HTN, Smoking, COPD, CAD, Cancer, CVA, ARF, Chemo, Hep., AIDS, mental health diagnosis, sleep apnea, morbid obesity)? @History of meth abuse, alcohol abuse, questionable seizure disorder, CVA/TIA Was patient admitted / discharged? Hospital course, mention meds given and route, prescriptions, significant lab abnormalities, going to OR and other pertinent info. @ -Admission- Patient is a 68 y/o female presenting with her daughter for AMS. Unknown last known normal, as daughter states patient was not her normal self since being admitted to the hospital 2 weeks ago and since discharge 2 days ago. On my assessment patient is resting calmly and comfortably in bed. She is calm and cooperative. She has no facial droop and speech is clear though patient does appear confused. She is oriented to self, able to identify her daughter but unable to identify her step son, stating "that's my boyfriend". She initially st ates she is a the [employer] building in [place] but then corrects herself to the hospital, with prompting. She as some difficulty following commands- when asked to follow my finger through 4 quadrants with her eyes only she turns her head along with eye movements, despite my attempting to redirect her multiple times. Patient tracks myself across her field of view, and when she is asked to count fingers in 4 quadrants on visual field exam, she continuously gives me the wrong number, but is also unable to count fingers at all, stating that 4 fingers held in her central field of vision is "44,000". Tongue is midline. Unable to follow commands when asked to turn her head or shrug her shoulders. Does have slight drift in RUE compared to left, and seems to endorse decreased sensation in the RUE and RLE- When asked if sensation is equal on both her bilateral upper and lower extremities, patient simply states "more" and indicates her left side. She does not seem to have neglect, as when asked where extremities are being touched she is able to correctly identify her right and left sides and does move her right upper and right lower extremity through full range of motion without difficulty. She is unable to perform [id number] and [id number] testing due to difficulty understanding and following commands. Pt's daughter states that patient actually appears improved from when she saw her earlier this afternoon, and a clear last known normal is unable to be established, therefor, a code stroke was not activated. Differential dx is noted above, at the top of that differential is seizure vs CVA or wernicke's encephalopathy. CT brain/CTA, comprehensive labs, acetaminophen, salicylate levels ordered, UDS, blood alcohol, keppra level, CXR. Keppra bolus/load ordered in possibility that twitching her her RUE and neck were a partial seizure. Pt's daughter agreeable with POC. Anticipate admission. Labs and imaging reviewed. Grossly within normal limits. Abnormal values not concerning for acute pathology related to presenting complaint. Updated the patient to plan for admission. Patient is able to state "when will I go home?" and states "I didn't think I've been feeling myself for the last few days", but then when asked the date states "" and "Tuesday". Her exam remains consistent with exam on arrival. Patient agreeable with plan for admission. Discussed case with AGUSTIN Atkinson, kindly accepts patient for admission. Undiagnosed new problem with uncertain prognosis? @ -No Drug Therapy requiring intensive monitoring for toxicity (Heparin, Nitro, Insu jr, Cardizem)? @ -No Were any procedures done? @ -No Diagnosis/symptom? @ Altered mental status Acute, or Chronic, or Acute on Chronic? Acute complicated Side effects of treatment? @ -No Exacerbation, Progression, or Severe Exacerbation? @ -No Poses a threat to life or bodily function? How? (Chest pain, [place], [place], pneumonia, PE, COPD, DKA, ARF, appy, cholecystitis, CVA, Diverticulitis, Homicidal, S uicidal, threat to staff... and all critical care pts) @Yes, if 2/2 recent CVA or seizure, and left unaddressed or untreated, could result in permanent disability - Lab Data Result diagrams: 02/13/24 18:40 02/13/24 18:40 Lab Results 02/13/24 02/13/24 02/13/24 Range/Units 18:40 18:40 18:40 WBC 4.1 (3.8-10.6) k/uL RBC 3.57 L (3.80-5.40) m/uL Hgb 11.4 (11.4-16.0) gm/dL Hct 34.0 (34.0-46.0) % MCV 95.1 (80.0-100.0) fL MCH 32.1 (25.0-35.0) pg MCHC 33.7 (31.0-37.0) g/dL RDW 13.2 (11.5-15.5) % Plt Count 108 L (150-450) k/uL MPV 8.7 Neutrophils % 52 % Lymphocytes % 35 % Monocytes % 10 % Eosinophils % 1 % Basophils % 0 % Neutrophils # 2.1 (1.3-7.7) k/uL Lymphocytes # 1.4 (1.0-4.8) k/uL Monocytes # 0.4 (0-1.0) k/uL Eosinophils # 0.1 (0-0.7) k/uL Basophils # 0.0 (0-0.2) k/uL PT 11.3 (10.0-12.5) sec INR 1.0 (<1.2) APTT 25.6 (22.0-30.0) sec Sodium 139 (137-145) mmol/L Potassium 3.5 (3.5-5.1) mmol/L Chloride 104 (98-107) mmol/L Carbon Dioxide 28 (22-30) mmol/L Anion Gap 7 mmol/L BUN 8 (7-17) mg/dL Creatinine 0.52 (0.52-1.04) mg/dL Est GFR (CKD-EPI)AfAm >90 (>60 ml/min/1.73 sqM) Est GFR (CKD-EPI)NonAf >90 (>60 ml/min/1.73 sqM) Glucose 91 (74-99) mg/dL Calcium 8.6 (8.4-10.2) mg/dL Total Bilirubin 0.6 (0.2-1.3) mg/dL AST 100 H (14-36) U/L ALT 63 H (4-34) U/L Alkaline Phosphatase 86 (38-126) U/L Ammonia (<30) umol/L Troponin I (0.000-0.034) ng/mL Total Protein 7.6 (6.3-8.2) g/dL Albumin 3.8 (3.5-5.0) g/dL TSH 1.090 (0.465-4.680) mIU/L Salicylates <1.0 mg/dL Acetaminophen <10.0 ug/mL Serum Alcohol <10 mg/dL 02/13/24 02/13/24 Range/Units 18:40 18:40 WBC (3.8-10.6) k/uL RBC (3.80-5.40) m/uL Hgb (11.4-16.0) gm/dL Hct (34.0-46.0) % MCV (80.0-100.0) fL MCH (25.0-35.0) pg MCHC (31.0-37.0) g/dL RDW (11.5-15.5) % Plt Count (150-450) k/uL MPV Neutrophils % % Lymphocytes % % Monocytes % % Eosinophils % % Basophils % % Neutrophils # (1.3-7.7) k/uL Lymphocytes # (1.0-4.8) k/uL Monocytes # (0-1.0) k/uL Eosinophils # (0-0.7) k/uL Basophils # (0-0.2) k/uL PT (10.0-12.5) sec INR (<1.2) APTT (22.0-30.0) sec Sodium (137-145) mmol/L Potassium (3.5-5.1) mmol/L Chloride (98-107) mmol/L Carbon Dioxide (22-30) mmol/L Anion Gap mmol/L BUN (7-17) mg/dL Creatinine (0.52-1.04) mg/dL Est GFR (CKD-EPI)AfAm (>60 ml/min/1.73 sqM) Est GFR (CKD-EPI)NonAf (>60 ml/min/1.73 sqM) Glucose (74-99) mg/dL Calcium (8.4-10.2) mg/dL Total Bilirubin (0.2-1.3) mg/dL AST (14-36) U/L ALT (4-34) U/L Alkaline Phosphatase (38-126) U/L Ammonia 24 (<30) umol/L Troponin I <0.012 (0.000-0.034) ng/mL Total Protein (6.3-8.2) g/dL Albumin (3.5-5.0) g/dL TSH (0.465-4.680) mIU/L Salicylates mg/dL Acetaminophen ug/mL Serum Alcohol mg/dL Disposition Clinical Impression: Altered mental status Disposition: ADMITTED IP TO THIS HOSP Condition: Stable
--- NOTE | 2024-02-13 20:26 | CT ---
EXAMINATION TYPE: CT angio head neck CT DLP: 1591.5 mGycm, Automated exposure control for dose reduction was used. DATE OF EXAM: 02/13/2024 7:42 PM COMPARISON: CT head from the same day. CLINICAL INDICATION:Female, 68 years old with history of AMS, recent admit for mass? near C spine?; P HH, Recently hospitalized for stroke symptoms, right arm twitching and weakness x 2 days. TECHNIQUE: Axially acquired helical CT angiogram of the head and neck was obtained with contrast. Axi al images are supplemented with 3D reconstructions and MIP images which were post-processed at an in dependent workstation. NASCET criteria used. Contrast used:65 mL of Isovue 370 without and with IV Contrast, Oral contrast used: None. FINDINGS: CTA HEAD: Please see CT head noncontrasted study from the same day for further intracranial details. The visualized portions of the internal carotid arteries, middle cerebral arteries, anterior cerebral arteries, and posterior cerebral arteries are patent. The basilar and vertebral arteries are patent. There is left vertebral artery dominance. CTA NECK: Right Carotid System: The common carotid artery and external carotid artery are patent. The carotid bifurcation with less t ulloa 50% stenosis secondary to calcifications. The remaining portions of the internal carotid artery d emonstrate are patent with calcifications seen at their cavernous segment without hemodynamically sig nificant stenosis. Left Carotid System: The common carotid artery and external carotid artery are patent. The carotid bifurcation with less t ulloa 50% stenosis secondary to calcifications. The remaining portions of the internal carotid artery d emonstrate are patent with calcifications seen at their cavernous segment without hemodynamically sig nificant stenosis. Vertebral arteries are patent without evidence hemodynamically significant stenosi s. There is a three-vessel aortic arch. The origins of the great vessels are patent. There is ectasia of the ascending aorta measuring up to 4.0 cm. No evidence of hemodynamically significant stenosis. Upper thorax: Patchy consolidative changes are seen within the right upper lobe. Mildly enlarged precarinal lymph node measuring 1.0 cm in short axis. There are calcified nodules seen in the thyroid gland bilaterally IMPRESSION: 1. No evidence of dissection of the cervical internal carotid arteries or vertebral arteries or any e vidence of significant stenosis at the carotid bifurcations. 2. No evidence of intracranial high-grade stenosis or intracranial aneurysm. 3. Patchy consolidative changes in the right upper lobe may relate to an infectious/inflammatory proc ess. 4. Ectasia of the ascending aorta measuring up to 4.0 cm. 5. Mediastinal lymphadenopathy likely reactive. [facility], , 02/13/2024 8:23 PM
--- NOTE | 2024-02-13 21:27 | XR ---
EXAMINATION TYPE: XR chest 2V DATE OF EXAM: 02/13/2024 7:33 PM CLINICAL INDICATION:Female, 68 years old with history of altered mental status; H COMPARISON: Chest radiographs from TECHNIQUE: XR chest 2V Frontal view of the chest. FINDINGS: Lungs/Pleura: Hazy airspace opacities are seen in the bilateral lungs more conspicuous in the right s precious. There is linear atelectasis involving the right upper lung zone.. Pulmonary vascularity: Unremarkable. Heart/mediastinum: Cardiac size is normal. Musculoskeletal: No acute osseous pathology. Other findings: None IMPRESSION: Hazy airspace disease in the bilateral lungs concerning for acute infectious/inflammatory process. [facility], , 02/13/2024 9:25 PM
[2024-02-13] MEDS ORDERED: NALOXONE 0.4 MG/ML 1 ML VIAL IV PRN (22:48)
[2024-02-13] MEDS ORDERED: ALPRAZolam 0.25 MG TAB PO PRN (22:48)
[2024-02-13] MEDS ORDERED: MAG HYDROX/AL HYDROX/SIMETH 30 ML CUP PO PRN (22:48)
[2024-02-13] MEDS ORDERED: CALCIUM CARBONATE 500 MG CHEWABLE PO PRN (22:48)
[2024-02-13] MEDS ORDERED: ACETAMINOPHEN TAB 325 MG TAB PO PRN (22:48)
[2024-02-13] MEDS: levETIRAcetam IV 3,000 MG in SODIUM CHLORIDE 0.9% 250 ML IVPB ONE (22:49)
[2024-02-13 23:15] LABS: Glucose,Whole Blood 87 mg/dL (70-110)
[2024-02-13] MEDS: DIVALPROEX 500 MG TABLET.DR PO SCH (23:36)
[2024-02-13] MEDS: QUEtiapine 25 MG TAB PO SCH (23:36)
[2024-02-14 01:56] LABS: Appearance,Urine Clear (Clear); Bilirubin,Urine Negative (Negative); Blood,Urine Negative (Negative); Color,Urine Colorless; Glucose,Urine (UA) Negative (Negative); Ketones,Urine Negative (Negative); Leukocyte Esterase,Urine Negative (Negative); Nitrite,Urine Negative (Negative); PH, Urine 7.5 (5.0-8.0); Protein,Urine Negative (Negative); Urobilinogen,Urine <2.0 mg/dL (<2.0)
[2024-02-14 02:13] LABS: Cocaine Screen,Urine Not Detected (NotDetected); Opiate Screen,Urine Detected (NotDetected); Phencyclidine Screen,Urine Not Detected (NotDetected); Urn Cannabinoid Scrn Detected (NotDetected)
[2024-02-14 02:14] LABS: Amphetamine Screen,Urine Not Detected (NotDetected); Barbiturate Screen,Urine Detected (NotDetected); Benzodiazepines Screen,Urine Detected (NotDetected); Methadone Screen, Urine Not Detected (NotDetected); Oxycodone Screen, Urine Detected (NotDetected); Tricyclic Antidepressant,Urine Not Detected (NotDetected)
[2024-02-14 03:07] LABS: Specific Gravity,Urine 1.046 (1.001-1.035)
[2024-02-14] MEDS: CLOPIDOGREL 75 MG TAB PO SCH (08:56)
[2024-02-14] MEDS: ESCITALOPRAM 20 MG TAB PO SCH (08:56)
[2024-02-14] MEDS: MAGNESIUM OXIDE 400 MG TAB PO SCH (08:56)
[2024-02-14] MEDS: FAMOTIDINE 20 MG TAB PO SCH (08:56)
--- NOTE | 2024-02-14 13:24 | P.CNNES ---
History of Present Illness Consult date: 02/14/24 Requesting physician: Suzanne Kang Reason for Consult: ams History of Present Illness: This is a 68-year-old woman history of possible seizure disorder, alcohol abuse, polysubstance use who presented emergency department because of altered mental status. History is obtained from medical record. Per the ED note it seems the patient's daughter that the patient about 2 weeks ago was diagnosed seizure or stroke and a mass near her neck so she was transferred to [facility] and spent 2 weeks there. It seems that yesterday patient was went shopping with her daughter and around 330 the patient began to have twitching of her right upper extremity and turning her head to the right side. Patient had difficulty squeezing with the right hand. Seems that symptoms resolved since the patient's arrival to the ER per the ED ED physician note. Seems the patient does not have any recent alcohol or methamphetamine use. She is on Keppra and seems that she is compliant taking her medication and the daughter is not unsure if she is taking extra medication of Keppra. If she fell yesterday in the kitchen. Upon Seeing the patient, she is a poor historian and she was talking nonsensical but stated that she had a seizure yesterday. She stated that she does have significant history of polysubstance abuse but cannot tell us if she is drinking anymore or using any illicit drug use. Of note patient was seen by my colleague, Dr. Dubois in March 2023 and he stated the patient was altered unclear cause and he felt perhaps due to substance abuse. The EEG at that time was normal. Please refer to his note for further details. Some of the workup during this hospital visit consisted of: AST is 100, ALT 63. Ammonia level is 24 I reviewed the rest of the lab workup. The sodium, calcium, TSH are within nor mal limits Serum glucose is 91 Urine drug screen is positive for opiates, oxycodone, barbiturates, b enzodiazepine and marijuana. Serum alcohol is less than 10. Alcohol level in August 2023 in our facility was 231 CT of the head is reported as no acute intracranial process. Nonspecific white matter changes, likely secondary due to chronic small vessel ischemic disease. I personally reviewed the CT and agree there is no acute or subacute process. Angiography of the head and neck is reported as no evidence of dissection of cervical internal carotid artery or vertebral artery or any evidence of s ignificant stenosis at the carotid bifurcation. No evidence of intracranial high-grade stenosis or intracranial aneurysm. Patchy consolidative changes in the right upper lobe may relate to an infection/inflammatory process. Ectasia of the ascending aorta measuring up to 4 cm. Mediastinal lymphadenopathy likely reactive. Review of Systems Limited but as per HPI. Past Medical History Past Medical History: Asthma, CVA/TIA, GERD/Reflux, Liver Disease, Osteoarthritis (OA) Additional Past Medical History / Comment(s): ELEVATED LIVER ENZYMES., HX OF PERFORATED STOMACH ULCER., sister states patient has HEPATITIS C, epigastric pain, recent admission for taking too much tylenol pm per pt. Etoh withdrawal seizures History of Any Multi-Drug Resistant Organisms: None Reported Past Surgical History: Hernia Repair, Tubal Ligation Additional Past Surgical History / Comment(s): PLASTIC SURGERY TO FOREHEAD, PERFORATED STOMACH ULCER. laser surgery to right leg for varicose veins Past Anesthesia/Blood Transfusion Reactions: No Reported Reaction Past Psychological History: ADD/ADHD, Anxiety, Depression Smoking Status: Current every day smoker Past Alcohol Use History: Daily, Heavy Past Drug Use History: Marijuana, Methamphetamine, Prescription Drug Abuse - Past Family History Mother Family Medical History: Cancer Additional Family Medical History / Comment(s): OVARIAN CA Father History Unknown: Yes Additional Family Medical History / Comment(s): father when patient was very young (2 year old), he of a gunshot wound outside of a bar at the age of 23 Medications and Allergies Home Medications Medication Instructions Recorded Confirmed Type Atorvastatin [Lipitor] 40 mg PO HS 08/24/21 02/13/24 History Clopidogrel [Plavix] 75 mg PO DAILY 08/24/21 02/13/24 History Escitalopram [Lexapro] 20 mg PO DAILY 08/24/21 02/13/24 History QUEtiapine [SEROquel] 25 mg PO HS 08/24/21 02/13/24 History rOPINIRole HCL [Requip] 1 mg PO BID 08/24/21 02/13/24 History Divalproex [Depakote] 500 mg PO Q8H 02/13/24 02/13/24 History Magnesium Oxide [Magox 400] 400 mg PO BID 02/13/24 02/13/24 History levETIRAcetam [Keppra] 1,500 mg PO BID 02/13/24 02/13/24 History Allergies Allergy/AdvReac Type Severity Reaction Status Date / Time No Known Allergies Allergy Verified 02/13/24 17:46 Physical Examination - Vital Signs Vital Signs: Vital Signs Temp Pulse Resp BP Pulse Ox 02/14/24 10:06 74 16 155/85 92 L 02/14/24 08:06 98.9 F 70 18 162/92 94 L 02/14/24 06:55 67 18 139/81 96 02/14/24 05:07 66 16 132/81 94 L 02/14/24 03:54 59 L 16 156/82 94 L 02/14/24 01:30 65 18 132/75 94 L 02/13/24 23:07 71 18 159/92 98 02/13/24 17:47 98.2 F 77 18 148/79 95 Intake and Output 02/13/24 02/14/24 02/14/24 22:59 06:59 14:59 Other: Weight 74.843 kg General: Lying in bed and is not in acute distress. Neuro: Limited. Patient is awake alert oriented to self. During examination she is very tangential and nonsensical. At times she will repeat the same phrase over again. She will follow simple commands. Pupils are round equal reactive to light. Pupils are round 4 mm bilaterally and reactive to light. Extraocular movement somewhat limited but there is no nystagmus looking to the right or left. No facial weakness. Has mild dysarthria. Motor: Strength is limited in assessment of individual muscles but is lifting upper and lower extremities above gravity equally Cerebellar is limited in assessment. Plantars are mute Results - Laboratory Findings CBC and BMP: 02/13/24 18:40 02/13/24 18:40 Abnormal Lab Findings: Abnormal Labs 02/13/24 02/13/24 02/14/24 18:40 18:40 01:35 RBC 3.57 L Plt Count 108 L AST 100 H ALT 63 H Ur Specific [place] Urine Opiates Screen Detected H Ur Oxycodone Screen Detected H Ur Barbiturates Screen Detected H U Benzodiazepines Scrn Detected H U Marijuana (THC) Screen Detected H 02/14/24 01:35 RBC Plt Count AST ALT Ur Specific [place] 1.046 H Urine Opiates Screen Ur Oxycodone Screen Ur Barbiturates Screen U Benzodiazepines Scrn U Marijuana (THC) Screen Assessment and Plan Assessment: Patient is a 68-year-old woman with history of possible seizure disorder, alcohol abuse, history of polysubstance abuse who presented emergency department because of altered mental status. This seems to the patient's daughter notified the ED physician that the patient yesterday in the afternoon began to have twitching of the right upper extremity turning head to the right and was severely confused. Her twitching has resolved. Patient continues to state that she had seizure but continues to be severely confused, tangential repeating words. In August 2023 she had an alcohol level that was in the 200s and currently the alcohol level is less than 10. Breakthrough seizure and possible due to alcohol withdrawal. Rule out any a ctive seizure Continued encephalopathy and possibly due to above versus Wernicke encephalopathy polysubstance use and the urine drug screen was positive., Oxycodone, marijuana, benzo, barbiturates History of possible seizure is on Keppra 1500 mg twice daily, Depakote 500 mg every 8 hour History of significant alcohol abuse and in August 2023 alcohol level was in the 200s and currently alcohol level is less than 10 History of methamphetamine History of polysubstance use Plan: I ordered a routine EEG Patient was given a thiamine 100 mg IV once. Spoke with the primary team recommend high-dose of IV thiamine 500 mg 3 times daily for 3 days and after that taper down. Will obtain MRI of the brain Seizure precautions seizure pads Ordered Vitamin B12, folate level. Patient is resumed on home dose of Keppra 1500 mg 3 times daily, Depakote 500 mg every 8 hours Patient was given a loading dose of Keppra 300 mg once in the ED. Keppra levels ordered and is pending. Will defer the rest of the medical management to primary and other specialist Plan discussed with primary team Thank you for the consultation. Time with Patient: Greater than 30
[2024-02-14] MEDS: THIAMINE 500 MG in SODIUM CHLORIDE 0.9% 50 ML IVPB SCH (14:20)
[2024-02-14] MEDS: LORazepam 2 MG/ML INJ IV STA (19:49)
[2024-02-14] MEDS: Lacosamide IV (ages 17+ yrs) 200 MG/20 ML ML IVP STA (19:49)
[2024-02-14] MEDS: ATORVASTATIN 40 MG TAB PO SCH (22:03)
[2024-02-14] MEDS: Lacosamide IV (ages 17+ yrs) 200 MG/20 ML ML IVP SCH (22:13)
[2024-02-14] MEDS: levETIRAcetam IV 500 MG/5 ML VIAL IVP SCH (22:32)
--- NOTE | 2024-02-15 04:10 | EEG ---
ELECTROENCEPHALOGRAM REPORT CLINICAL HISTORY: This is a 68-year-old woman with history of seizure, who presented to the emergency department because of twitching of the right upper extremity with confusion. The video EEG is obtained to evaluate for seizure epileptiform activity. RELEVANT MEDICATIONS: 1. Keppra. 2. Depakote. EEG TYPE: This is a routine 21-channel EEG with video using the 10/20 electrode placement system. DESCRIPTION: Wakefulness and drowsiness are obtained. During awake state, the background is asymmetrical with background over the right has [id number] voltage of 5 to 6 hertz activity and sometimes intermixed with delta activity. While on the left, the background consists of 3 to 4 hertz activity. There is no physiological stage 2 sleep architecture. There is focal slowing over the left hemisphere. Interictal and ictal is, there is frequent sharp and slow waves predominantly over left temporal and is very frequent. There is no evolution during this study and over the left hemisphere, diffuse nonrhythmic with frequent epileptiform discharges. ACTIVATION PROCEDURE: Photic stimulation and hyperventilation are not performed. CLINICAL INTERPRETATION: This is an abnormal routine EEG. The background is asymmetrical with the right is moderate while the left has severe encephalopathy. There is frequent epileptiform discharges over the left temporal, which can increase risk for focal seizure as well as status epilepticus. The focal slowing over the left hemisphere is suggestive of cerebral dysfunction in the involved region. RECOMMENDATIONS: As a result, I ordered 2 mg stat as well as I gave the patient 200 mg of IV Vimpat once stat and started on Vimpat 100 mg b.i.d. She is resumed on her Keppra and Depakote. We will get a repeat EEG tomorrow. MMODL / IJN: [id number] /
--- NOTE | 2024-02-15 05:35 | P.HPIM ---
History of Present Illness H&P Date: 02/14/24 This is a 68-year-old female who presented to the emergency department for altered mental status. Patient unable to provide a history although was provided with some by daughter with no one at the bedside during physical exam. Patient apparently was here 2 weeks prior and diagnosed with a seizure or stroke and was transferred to [facility] and spent 2 weeks there. Patient has poor social support and lives alone normally and daughter had been arranging for someone to stay with her. Patient was noted to have twitching over her right extremity that had since stopped. Patient was started on Keppra and per daughter patient had been taking medications as prescribed although unsure if she is taking any extra. Patient does have history of alcohol and drug abuse. Per daughter patient was also noted to be possibly hallucinating and just not acting right. On exam patient was having difficulty in speaking slurring of the speech somewhat and word salad, but Reporting back to her having a seizure. Urine drug screen detected opiates oxycodone methamphetamine and marijuana use a nd serum alcohol was less than 10 with concerns of possible alcohol withdrawal although patient could not reports that she had been drinking recently. Other labs reviewed and within normal limits other than AST and ALT which were elevated. Patient follows with Dr. Pedersen the outpatient setting with a past medical history of asthma, CVA, GERD, liver disease, osteoarthritis, hepatitis C, EtOH withdrawal seizures, ADD/ADHD, anxiety/depression, continued ongoing nicotine abuse, daily drinking along with previous history of drug abuse and prescription drug abuse. CT head was negative and patient was admitted with neurology on consult REVIEW OF SYSTEMS: Unable to completely assess as patient is confused and altered and repeating herself The rest of the 14-point review of systems is negative. PHYSICAL EXAMINATION: GENERAL: The patient is alert and oriented x1 to name, lethargic although arousable, confused, difficulty speaking at times. Well developed, elderly appearing HEENT: Pupils are round and equally reacting to light. EOMI. No scleral icterus. No conjunctival pallor. Normocephalic, atraumatic. No pharyngeal erythema. No thyromegaly. CARDIOVASCULAR: S1 and S2 muffled PULMONARY: Chest is clear to auscultation, no wheezing or crackles. ABDOMEN: Soft, nontender, nondistended, normoactive bowel sounds. No palpable organomegaly. MUSCULOSKELETAL: No joint swelling or deformity. EXTREMITIES: No cyanosis, clubbing, or pedal edema. NEUROLOGICAL: Gross neurological examination did not reveal any focal deficits. Strength in upper extremities bilaterally 5/5 as well as lower extremities, restless at times and fidgeting SKIN: No rashes. Assessment: Altered mental status, possibly toxic/metabolic encephalopathy due to medication effects as well as possible alcohol withdrawal History of seizures, with breakthrough seizure with concerns of possible Wernicke encephalopathy from polysubstance abuse Polysubstance noted on urine drug screen including THC, methamphetamine, opiates History of asthma, not in exacerbation History of CVA History of GERD History of liver disease with elevated liver enzymes and hepatitis C History of EtOH withdrawal seizures, maintained on Keppra History of ADD/ADHD History of anxiety and depression Continued ongoing nicotine abuse Heavy Daily alcohol abuse Elevated LFTs, likely secondary to continued alcohol abuse GI prophylaxis DVT prophylaxis Full code Plan: Patient was admitted with altered mental status with neurology on consult. EEG was performed which is showing abnormal with severe encephalopathy frequent epileptiform discharges noted over the left temporal lobe. Patient started on Vimpat and also given Ativan. Repeat EEG ordered for tomorrow and if continuing to have seizure-like activity, recommend possibly transferring for continued EEG monitoring. Will discuss further with neurology on repeat EEG Patient on exam is confused, performing word salad and continues reverting back to that she had a seizure. Patient is alert and oriented x 1 sometimes 2 as she knows her name and is able to state that she is at a hospital. Patient was given a loading dose of Keppra and home medications resumed. Appreciate neurology input and recommendations The impression and plan of care has been dictated by Aria Ndiaye, Nurse Practitioner as directed. Dr. Izabella MD I have performed a history and examination and MDM of this patient, discussed the same with the dictator, and agree with the dictator's assessment and plan as written ,documented as a scribe. Based on total visit time, I have performed more than 50% of the visit. Past Medical History Past Medical History: Asthma, CVA/TIA, GERD/Reflux, Liver Disease, Osteoarthritis (OA) Additional Past Medical History / Comment(s): ELEVATED LIVER ENZYMES., HX OF PERFORATED STOMACH ULCER., sister states patient has HEPATITIS C, epigastric pain, recent admission for taking too much tylenol pm per pt. Etoh withdrawal seizures History of Any Multi-Drug Resistant Organisms: None Reported Past Surgical History: Hernia Repair, Tubal Ligation Additional Past Surgical History / Comment(s): PLASTIC SURGERY TO FOREHEAD, PERFORATED STOMACH ULCER. laser surgery to right leg for varicose veins Past Anesthesia/Blood Transfusion Reactions: No Reported Reaction Past Psychological History: ADD/ADHD, Anxiety, Depression Smoking Status: Current every day smoker Past Alcohol Use History: Daily, Heavy Past Drug Use History: Marijuana, Methamphetamine, Prescription Drug Abuse - Past Family History Mother Family Medical History: Cancer Additional Family Medical History / Comment(s): OVARIAN CA Father History Unknown: Yes Additional Family Medical History / Comment(s): father when patient was very young (2 year old), he of a gunshot wound outside of a bar at the age of 23 Medications and Allergies Home Medications Medication Instructions Recorded Confirmed Type Atorvastatin [Lipitor] 40 mg PO HS 08/24/21 02/13/24 History Clopidogrel [Plavix] 75 mg PO DAILY 08/24/21 02/13/24 History Escitalopram [Lexapro] 20 mg PO DAILY 08/24/21 02/13/24 History QUEtiapine [SEROquel] 25 mg PO HS 08/24/21 02/13/24 History rOPINIRole HCL [Requip] 1 mg PO BID 08/24/21 02/13/24 History Divalproex [Depakote] 500 mg PO Q8H 02/13/24 02/13/24 History Magnesium Oxide [Magox 400] 400 mg PO BID 02/13/24 02/13/24 History levETIRAcetam [Keppra] 1,500 mg PO BID 02/13/24 02/13/24 History Allergies Allergy/AdvReac Type Severity Reaction Status Date / Time No Known Allergies Allergy Verified 02/13/24 17:46 Physical Exam Vitals: Vital Signs Temp Pulse Resp BP Pulse Ox 02/14/24 08:06 98.9 F 70 18 162/92 94 L 02/14/24 06:55 67 18 139/81 96 02/14/24 05:07 66 16 132/81 94 L 02/14/24 03:54 59 L 16 156/82 94 L 02/14/24 01:30 65 18 132/75 94 L 02/13/24 23:07 71 18 159/92 98 02/13/24 17:47 98.2 F 77 18 148/79 95 Intake and Output 02/13/24 02/14/24 02/14/24 22:59 06:59 14:59 Other: Weight 74.843 kg Results CBC & Chem 7: 02/13/24 18:40 02/13/24 18:40 Labs: Abnormal Lab Results - Last 24 Hours (Table) 02/13/24 02/13/24 02/14/24 Range/Units 18:40 18:40 01:35 RBC 3.57 L (3.80-5.40) m/uL Plt Count 108 L (150-450) k/uL AST 100 H (14-36) U/L ALT 63 H (4-34) U/L Ur Specific [place] (1.001-1.035) Urine Opiates Screen Detected H (NotDetected) Ur Oxycodone Screen Detected H (NotDetected) Ur Barbiturates Screen Detected H (NotDetected) U Benzodiazepines Scrn Detected H (NotDetected) U Marijuana (THC) Screen Detected H (NotDetected) 02/14/24 Range/Units 01:35 RBC (3.80-5.40) m/uL Plt Count (150-450) k/uL AST (14-36) U/L ALT (4-34) U/L Ur Specific [place] 1.046 H (1.001-1.035) Urine Opiates Screen (NotDetected) Ur Oxycodone Screen (NotDetected) Ur Barbiturates Screen (NotDetected) U Benzodiazepines Scrn (NotDetected) U Marijuana (THC) Screen (NotDetected)
[2024-02-15] MEDS ORDERED: levETIRAcetam IV 500 MG/5 ML VIAL IVP STA (08:52)
[2024-02-15] MEDS: LORazepam 2 MG/ML INJ IV STA ×2 (09:08→15:52)
[2024-02-15] MEDS: LORazepam 2 MG/ML INJ IV PRN (09:14)
--- NOTE | 2024-02-15 09:39 | P.PN ---
Subjective Progress Note Date: 02/15/24 I am following-up with patient and she continues to be confused and has nonsensical speech. On EEG yesterday patient had frequent discharges over the left temporal as a result the patient was given Ativan 2 mg once and loaded the patient with Vimpat and started on Vimpat dose in addition to her home Keppra and Depakote. Objective - Vital Signs Vital signs: Vital Signs Temp 98.3 F 02/15/24 07:24 Pulse 66 02/15/24 07:24 Resp 16 02/15/24 07:24 BP 139/81 02/15/24 07:24 Pulse Ox 95 02/15/24 07:24 FiO2 - Exam General: Lying in bed and does not appear in acute distress. Neuro: Very limited. Patient is severely drowsy and not cooperating for exam. Her speech is very jibberish. No facial weakness. Motor: Limited. Some of the workup during this hospital visit consisted of: AST is 100, ALT 63. Ammonia level is 24 I reviewed the rest of the lab workup. The sodium, calcium, TSH are within normal limits Serum glucose is 91 Urine drug screen is positive for opiates, oxycodone, barbiturates, benzodiazepine and marijuana. Serum alcohol is less than 10. Alcohol level in August 2023 in our facility was 231 CT of the head is reported as no acute intracranial process. Nonspecific white matter changes, likely secondary due to chronic small vessel ischemic disease. I personally reviewed the CT and agree there is no acute or subacute process. Angiography of the head and neck is reported as no evidence of dissection of cervical internal carotid artery or vertebral artery or any evidence of significant stenosis at the carotid bifurcation. No evidence of intracranial hi gh-grade stenosis or intracranial aneurysm. Patchy consolidative changes in the right upper lobe may relate to an infection/inflammatory process. Ectasia of the ascending aorta measuring up to 4 cm. Mediastinal lymphadenopathy likely reactive. Vitamin B12 is 836 Folate level is 6.10 Depakote level is 82.6. Keppra level is 14.5 Routine EEG is abnormal. The background is asymmetrical with the right moderate while the left is severe encephalopathy. There is frequent continuous epileptiform discharges over the left temporal which can increase risk for focal seizure as well as status of Tu. The focal slowing over the left hemisphere suggestive of cerebral dysfunction in the involved region. Clinical correlation is recommended. - Labs CBC & Chem 7: 02/13/24 18:40 02/13/24 18:40 Assessment and Plan Assessment: Patient is a 68-year-old woman with history of possible seizure disorder, alcohol abuse, history of polysubstance abuse who presented emergency department because of altered mental status. This seems to the patient's daughter notified the ED physician that the patient yesterday in the afternoon began to have twitching of the right upper extremity turning head to the right and was severel y confused. Her twitching has resolved. Patient continues to state that she had seizure but continues to be severely confused, tangential repeating words. In August 2023 she had an alcohol level that was in the 200s and currently the alcohol level is less than 10. Breakthrough seizure. Due to her underlying seizure is not controlled and polysubstance use. Has frequent discharges over the left temporal region. Continued encephalopathy due to above and polysubstance use. Urine drug screen was positive for opiates, Oxycodone, marijuana, benzo, barbiturates Low normal folic acid History of possible seizure is on Keppra 1500 mg twice daily, Depakote 500 mg every 8 hour History of significant alcohol abuse and in August 2023 alcohol level was in the 200s and currently alcohol level is less than 10 History of alcohol use History of polysubstance use Plan: Currently is getting repeat EEG: Preliminary continues to show frequent discharges over the left temporal and as result received 2mg Ativan and Loaded her with Keppra 2mg. Recommend patient to a tertiary center for continuos EEG. Patient is resumed on home dose of Keppra 1500 mg 3 times daily, Depakote 500 mg every 8 hours. Yesterday I started the patient on Vimpat 100 mg twice daily and I have increased it today to 150 mg twice daily. Seizure precautions seizure pads Patient is on high-dose of IV thiamine 500 mg 3 times a day and today is day 2 out of the 3 Pending MRI of the brain For low-normal folate level I started the patient on folic acid 1 mg daily. Will defer the rest of the medical management to primary and other specialist As stated earlier recommend the patient to be transferred to a tertiary center for prolonged EEG because of her continued confusion and has frequent discharges over the left temporal region. ADDENDUM: I was notified by the nurse that [facility] wanted a lumbar puncture prior to transfer. Unable to obtain lumbar puncture immediately since the patient is on Plavix. Needs to be held for 5 days prior to the lumbar puncture. Patient is afebrile no leukocytosis but will place the patient empirically on acyclovir. The plan is discussed multiple times with her nurse and primary attending. I spent a total of 45 minutes on case. Time with Patient: Greater than 30
[2024-02-15] MEDS: levETIRAcetam IV 2,000 MG in SODIUM CHLORIDE 0.9% 250 ML IVPB STA (10:36)
[2024-02-15] MEDS: Lacosamide IV (ages 17+ yrs) 200 MG/20 ML ML IVP SCH (11:20)
--- NOTE | 2024-02-15 11:44 | P.PN ---
Subjective Progress Note Date: 02/15/24 H&P Date: 02/14/24 This is a 68-year-old female who presented to the emergency department for altered mental status. Patient unable to provide a history although was provided with some by daughter with no one at the bedside during physical exam. Patient apparently was here 2 weeks prior and diagnosed with a seizure or stroke and was transferred to [facility] and spent 2 weeks there. Patient has poor social support and lives alone normally and daughter had been arranging for someone to stay with her. Patient was noted to have twitching over her right extremity that had since stopped. Patient was started on Keppra and per daughter patient had been taking medications as prescribed although unsure if she is taking any extra. Patient does have history of alcohol and drug abuse. Per daughter patient was also noted to be possibly hallucinating and just not acting right. On exam patient was having difficulty in speaking slurring of the speech somewhat and word salad, but Reporting back to her having a seizure. Urine drug screen detected opiates oxycodone methamphetamine and marijuana use and serum alcohol was less than 10 with concerns of possible alcohol withdrawal although patient could not reports that she had been drinking recently. Other labs reviewed and within normal limits other than AST and ALT which were elevated. Patient follows with Dr. Pedersen the outpatient setting with a past medical history of asthma, CVA, GERD, liver disease, osteoarthritis, hepatitis C, EtOH withdrawal seizures, ADD/ADHD, anxiety/depression, continued ongoing nicotine abuse, daily drinking along with previous history of drug abuse and prescription drug abuse. CT head was negative and patient was admitted with neurology on consult 02/15/2024 routine EEG was abnormal, background asymmetrical with the right moderate while the left has severe encephalopathy. Frequent epileptiform discharges over the left temporal which can increase the risk for focal seizure as well as status elliptica's. Focal slowing over the left hemisphere suggestive of cerebral dysfunction in the involved region .r Vimpat started, resumed on Keppra and Depakote .currently Returning from repeat EEG, reporting frequent discharges over the left temporal, patient received a total of 2 mg of Ativan and loaded with Keppra. Seizure precautions maintained. green energy marketing analyst at bedside.Brain MRI pending. Neurology recommending transfer to a tertiary care center that can facilitate continuous monitoring, patient is not available at this site. Objective - Vital Signs Vital signs: Vital Signs Temp 98.3 F 02/15/24 07:24 Pulse 67 02/15/24 10:16 Resp 16 02/15/24 10:16 BP 147/63 02/15/24 10:16 Pulse Ox 94 L 02/15/24 10:16 FiO2 - Exam PHYSICAL EXAM: VITAL SIGNS: [Reviewed] GENERAL: Sedated HEENT: Conjunctivae normal. eyes normal. NECK: Supple, no JVD. CARDIOVASCULAR: S1, S2 regular..No murmur RESPIRATION: Unlabored equal air entry, breath sounds diminished in the bases. ABDOMEN: Soft, nondistended, nontender, no masses appreciated. +BS. LEGS: No edema. no swelling NERVOUS SYSTEM: Unable to evaluate, sedated-recently received 2 mg of Ativan during repeat EEG Skin: no lesions, no rash - Labs CBC & Chem 7: 02/13/24 18:40 02/13/24 18:40 Assessment and Plan Assessment: Breakthrough seizure, underlying seizures not controlled, continued encep halopathy with ongoing confusion. Polysubstance abuse; toxicology reporting opiates, oxycodone, barbiturates, benzodiazepines, marijuana. Serum alcohol less than 10. History of serum alcohol level 200 in August 2023 Folate level, low normal, 6.10, maintained on folic acid History of asthma, no exacerbation History of CVA History of GERD History of liver disease with elevated liver enzymes and hepatitis C History of EtOH withdrawal seizures, maintained on Keppra History of ADD/ADHD History of anxiety and depression Continued ongoing nicotine abuse Heavy Daily alcohol abuse Elevated LFTs, likely secondary to continued alcohol abuse Plan: Continue on current medications and ,monitoring and symptomatic treatment. Maintain safety and health manager. neurology recommending patient transfer to a tertiary center for prolonged EEG which is not offered at this site. Anticonvulsants as per neurology. Maintain seizure precautions brain MRI pending. Continues on high-dose of IV thiamine. The impression and plan of care has been dictated as directed. : I performed a history and examination of this patient, discussed the same with the dictator. I agree with the dictator's note ,documented as a scribe. Any additional findings or plans will be noted.
[2024-02-15] MEDS: FOLIC ACID 1 MG TAB PO SCH (12:50)
[2024-02-15 14:18] VITALS: RESP 17
[2024-02-15] MEDS: PHENYTOIN SODIUM INJ 1,000 MG in SODIUM CHLORIDE 0.9% 100 ML IVPB STA (16:00)
[2024-02-15] MEDS: VALPROATE SODIUM 500 MG in SODIUM CHLORIDE 0.9% 100 ML IVPB SCH (16:58)
[2024-02-15] MEDS: ACYCLOVIR SODIUM 750 MG in SODIUM CHLORIDE 0.9% 100 ML IV SCH (17:55)
--- NOTE | 2024-02-15 21:20 | P.CONS ---
History of Present Illness - Reason for Consult Consult date: 02/15/24 Meningitis/acyclovir rule out per [facility] Requesting physician: Danny Pedersen - Chief Complaint Mental status changes x few days - History of Present Illness Patient is a 68-year-old female past medical history significant for reflux CVA TIA osteoarthritis chronic hepatitis C, who is a recent diagnosis of stroke and seizure disorder treated with [facility] patient has been brought to the hospital at this time concerning for twitching over her right extremity also the patient was noted to be hallucinating and not acting right with the send the patient has been evaluated on presentation to the hospital patient was afebrile and no fever have been ordered subsequently patient was not tachycardic hypotensive or hypoxic and on for supplemental oxygen patient did have a total of 4.1 creatinine 0.52 electrolyte has been normal liver isms are elevated patient UA was negative urine drug screen was positive for opiates oxycodone barbiturates benzo and marijuana patient did have CT of the brain no acute intracranial process nonspecific white matter changes chest x-ray hazy airspace disease in bilateral lungs concerning for acute infectious inflammatory process patient did have an EEG concerning for more temporal outburst family have been counseled the patient has been seizing and neurology wanted the patient to be transferred out [facility] has refused after the admitting team has talked to the neurologist at [facility] he wanted to get an LP and the patient started on acyclovir for which I was asked to see the patient today most information has been obtained from review the chart and talking nursing staff as patient cannot provide any history no vomiting or diarrhea has been reported Review of Systems Positive points has been mentioned in HPI complete review could not be obtained because of his underlying mental status Past Medical History Past Medical History: Asthma, CVA/TIA, GERD/Reflux, Liver Disease, Osteoarthritis (OA) Additional Past Medical History / Comment(s): ELEVATED LIVER ENZYMES., HX OF PERFORATED STOMACH ULCER., sister states patient has HEPATITIS C, epigastric pain, recent admission for taking too much tylenol pm per pt. Etoh withdrawal seizures History of Any Multi-Drug Resistant Organisms: None Reported Past Surgical History: Hernia Repair, Tubal Ligation Additional Past Surgical History / Comment(s): PLASTIC SURGERY TO FOREHEAD, PERFORATED STOMACH ULCER. laser surgery to right leg for varicose veins Past Anesthesia/Blood Transfusion Reactions: No Reported Reaction Past Psychological History: ADD/ADHD, Anxiety, Depression Smoking Status: Current every day smoker Past Alcohol Use History: Daily, Heavy Past Drug Use History: Marijuana, Methamphetamine, Prescription Drug Abuse - Past Family History Mother Family Medical History: Cancer Additional Family Medical History / Comment(s): OVARIAN CA Father History Unknown: Yes Additional Family Medical History / Comment(s): father when patient was very young (2 year old), he of a gunshot wound outside of a bar at the age of 23 Medications and Allergies Home Medications Medication Instructions Recorded Confirmed Type Atorvastatin [Lipitor] 40 mg PO HS 08/24/21 02/13/24 History Clopidogrel [Plavix] 75 mg PO DAILY 08/24/21 02/13/24 History Escitalopram [Lexapro] 20 mg PO DAILY 08/24/21 02/13/24 History QUEtiapine [SEROquel] 25 mg PO HS 08/24/21 02/13/24 History rOPINIRole HCL [Requip] 1 mg PO BID 08/24/21 02/13/24 History Divalproex [Depakote] 500 mg PO Q8H 02/13/24 02/13/24 History Magnesium Oxide [Magox 400] 400 mg PO BID 02/13/24 02/13/24 History levETIRAcetam [Keppra] 1,500 mg PO BID 02/13/24 02/13/24 History Allergies Allergy/AdvReac Type Severity Reaction Status Date / Time No Known Allergies Allergy Verified 02/13/24 17:46 Physical Exam Vitals: Vital Signs Temp Pulse Pulse Resp BP BP Pulse Ox 02/15/24 14:17 98.1 F 74 17 138/80 97 02/15/24 10:16 67 16 147/63 94 L 02/15/24 07:24 98.3 F 66 16 139/81 95 02/15/24 06:00 65 16 112/72 96 02/15/24 04:00 64 16 138/76 96 02/15/24 03:00 67 16 136/74 96 02/15/24 01:34 70 18 145/84 97 02/14/24 23:25 78 18 148/89 97 GENERAL DESCRIPTION: Elderly female lying in bed, no distress. No tachypnea or accessory muscle of respiration use. HEENT: Shows Pallor , no scleral icterus. Oral mucous membrane is dry. NECK: Trachea central, no thyromegaly. LUNGS: Unlabored breathing. Decreased breath sound at the base HEART: S1, S2, regular rate and rhythm. No loud murmur ABDOMEN: Soft, no tenderness EXTREMITIES: No edema of feet. SKIN: No rash, no masses palpable. NEUROLOGICAL: The patient did not respond to her name orientation multivitamin no neck rigidity Results CBC & Chem 7: 02/13/24 18:40 02/13/24 18:40 Assessment and Plan (1) Encephalitis Status: Acute Code(s): G04.90 - ENCEPHALITIS AND ENCEPHALOMYELITIS, UNSPECIFIED SNOMED Code(s): 84675361 (2) Altered mental state Status: Acute Code(s): R41.82 - ALTERED MENTAL STATUS, UNSPECIFIED SNOMED Code(s): 447812706 Plan: 1patient presented to hospital mental status changes and seizure which is likely multifactorial patient did have abnormal EEG concerning for temporal outburst and there has been concern for possible encephalitis clinical suspicion low with no fever white count normal however not entirely excluded 2-pain management has been consulted to obtain CSF fluid which will be sent for glucose protein cell count differential and and viral PCR 3-we will empirically add acyclovir 10 mg/kg every 8 hours while waiting for the workup to be completed We will follow on clinical condition and cultures to further adjust medication if needed Thank you for this consultation we will follow the patient along with you Dictation was produced using [employer] dictation software. please excuse any grammatical, word or spelling errors. Time with Patient: Greater than 30
--- NOTE | 2024-02-16 01:35 | EEG ---
ELECTROENCEPHALOGRAM REPORT CLINICAL HISTORY: This is a 68-year-old woman, history of seizure, who continues to have speech difficulty and had frequent discharges over the left temporal on her EEG that was performed yesterday. The video EEG is obtained to evaluate for seizure epileptiform activity. RELEVANT MEDICATIONS: 1. Keppra. 2. Vimpat. 3. Depakote. Start of recording is 8:46 a.m. and end of recording is 9:28 a.m. both on 02/15/2024. EEG TYPE: This is a routine 21-channel EEG with video using the 10/20 electrode placement system. DESCRIPTION: Wakefulness and drowsiness are obtained. During awake state, the background is asymmetrical with the right 6 hertz intermixed with delta activity while the left is 2.5 to 3.5 hertz intermixed with theta activity. There was no physiological stage 2 sleep architecture. There is focal slowing over the left hemisphere, predominantly left temporal region. INTERICTAL AND ICTAL: There is spike and slow waves over the left temporal that is frequent during the first 2/3 of the study and it seems stemming over the T5/T3 region and drastically improves after 2 mg of Ativan. There is no seizure during the study. There is diffuse excessive beta activity likely due to medication effect (Ativan). ACTIVATION: Photic stimulation and hyperventilation are not performed. CLINICAL INTERPRETATION: This is an abnormal 42-minute EEG. The background is asymmetrical with right is moderate encephalopathy where the left is severe encephalopathy. There is frequent epileptiform discharges over the left temporal and it seems stemming over the T5/T3 lead, which can increase risk for focal seizures status epilepticus. The focal slowing over the left temporal region is suggestive of cerebral dysfunction in the involved region. No seizure is noted during the study. The excessive beta activity is likely due to medication effect (benzo). Clinical correlation is recommended. RECOMMENDATION: Recommend continuous EEG. MMODL / IJN: [id number] / [facility]
[2024-02-16 03:37] VITALS: BP 169/71; PULSE 79; TEMP 98.1
[2024-02-16 05:33] LABS: HSV I IgG Interp Positive (Negative); HSV II IgG Interp Positive (Negative)
== END 2024-02-16 06:30 | disposition short-term general hospital (02) | DRG 100 ==
LOC: EC 17:45 → 6NMEDSUR 22:50 → OBSVTOIN 22:51 → 6NMEDSUR 23:18 → 1SOBS 02-15 07:35
PROVIDERS: ADMIT Family Medicine; ATTEND Family Medicine
DX: G40.909 Epilepsy, unspecified, not intractable, without status epilepticus (principal); G04.90 Encephalitis and encephalomyelitis, unspecified; G92.8 Other toxic encephalopathy; F10.139 Alcohol abuse with withdrawal, unspecified; J45.909 Unspecified asthma, uncomplicated; K21.9 Gastro-esophageal reflux disease without esophagitis; M19.90 Unspecified osteoarthritis, unspecified site; F90.9 Attention-deficit hyperactivity disorder, unspecified type; F17.200 Nicotine dependence, unspecified, uncomplicated; B18.2 Chronic viral hepatitis C; Z60.8 Other problems related to social environment; Z87.11 Personal history of peptic ulcer disease; Z86.73 Personal history of transient ischemic attack (TIA), and cerebral infarction without residual deficits
CPT/HCPCS: 36415; 70450; 70496; 70498; 71046; 80053; 80143; 80164; 80177; 80179; 80306; 80320; 81003; 82140; 82607; 82746; 84443; 84484; 85025; 85610; 85730; 86140; 86695; 86696; 95812; 95816; 96361; 96365; 96366; 96367; 96375; 96376; 99285

== ENCOUNTER → 2024-05-14 | Outpatient (CLI) | payer MEDICARE, OTHER ==
--- NOTE | 2024-05-14 16:17 | CTL ---
EXAMINATION TYPE: CT Low Dose Lung DATE OF EXAM ORDERED: 05/14/2024 COMPARISON: Chest radiograph 02/13/2024 CLINICAL INDICATION: Female, 68 years old with history of Z12.2 ENCNTR SCREEN FOR MALIGNANT NEOPLASM OF RESP; PHH, Current smoker 2 ppd x 50 years, Lung cancer screening, History of Smoking/tobacco use. TECHNIQUE: Low dose computed tomography scan was performed through the chest at 1 mm thick sections a nd reconstructed images in multiple planes at 1 mm and [address] DLP: 90.[address] CTDI: 2.6 mGy Automated exposure control for dose reduction was used. CT DIAGNOSTIC QUALITY: Satisfactory FINDINGS: Nodules: Branching tubular pulmonary opacities within the posterior peripheral right upper lobe (series 6, treasure ge 22) with some surrounding atelectasis. Measures up to 5 mm in thickness. No other suspicious pulmo nary nodules or masses. LUNGS: COPD: Severity: None Fibrosis: Severity: None Lymph nodes: None Other findings: None RIGHT PLEURAL SPACE: Effusion: None Calcification: None Thickening: None Pneumothorax: None LEFT PLEURAL SPACE: Effusion: None Calcification: None Thickening: None Pneumothorax: None HEART: Heart Size: Normal Coronary Calcification: Moderate Pericardial Effusion: None OTHER FINDINGS: Upper abdomen: None Bony thorax: Mild multilevel degenerative disc disease. Supraclavicular region: Macrocalcifications within the thyroid gland with a dominant left thyroid jamie cified nodule measuring up to 1.5 cm. Other: Mild atherosclerotic calcification of the aorta and its branches. IMPRESSION: Branching tubular pulmonary opacities within the peripheral right upper lobe suggesting m ucoid impaction from a variety of etiologies. CT LUNG RAD AND CT CHEST RECOMMENDATION: Lung-Rad 4A Suspicious: Follow-up 3 month LDCT or PET/CT may be used when there is a > 8 mm solid component. S Modifier (other clinically significant findings): None [facility], , 05/14/2024 4:15 PM
== END | disposition home or self-care (01) ==
LOC: RADCTMAIN 14:59
PROVIDERS: ATTEND Family Medicine
DX: Z12.2 Encounter for screening for malignant neoplasm of respiratory organs (principal); F17.210 Nicotine dependence, cigarettes, uncomplicated; R91.8 Other nonspecific abnormal finding of lung field
CPT/HCPCS: 71271

== ENCOUNTER 2024-06-03 18:11 | Emergency (ER) | payer MEDICARE, OTHER ==
[2024-06-03 18:18] VITALS: TEMP 97.8
--- NOTE | 2024-06-03 18:21 | ED ---
Chest Pain HPI - General Chief Complaint: Chest Pain Stated Complaint: Chest Pain Time Seen by Provider: 06/03/24 18:13 Source: patient, EMS, RN notes reviewed, old records reviewed Mode of arrival: EMS Limitations: no limitations - History of Present Illness Initial Comments: This is a 68 female to ER for dyspnea and chest pain. Patient has significant chest pain with right-sided chest pain here in the ER started while she was having a cigarette on the porch today. Chest pain is persistent here in the ER right-sided chest pain, she states is much improvement than when it started no recent fever cough or congestion MD Complaint: chest pain -: hour(s) Onset: during rest, during exertion Pain Location: right chest Pain Radiation: none Severity: moderate Severity scale (1-10): 4 Quality: tightness Consistency: constant Improves With: nothing Anginal Symptoms: dyspnea Other Symptoms: palpitations Treatments Prior to Arrival: none - Related Data Home Medications Medication Instructions Recorded Confirmed Atorvastatin [Lipitor] 40 mg PO HS 08/24/21 02/13/24 Clopidogrel [Plavix] 75 mg PO DAILY 08/24/21 02/13/24 Escitalopram [Lexapro] 20 mg PO DAILY 08/24/21 02/13/24 QUEtiapine [SEROquel] 25 mg PO HS 08/24/21 02/13/24 rOPINIRole HCL [Requip] 1 mg PO BID 08/24/21 02/13/24 Divalproex [Depakote] 500 mg PO Q8H 02/13/24 02/13/24 Magnesium Oxide [Magox 400] 400 mg PO BID 02/13/24 02/13/24 levETIRAcetam [Keppra] 1,500 mg PO BID 02/13/24 02/13/24 Allergies Allergy/AdvReac Type Severity Reaction Status Date / Time No Known Allergies Allergy Verified 06/03/24 18:17 Review of Systems ROS Statement: Those systems with pertinent positive or pertinent negative responses have been documented in the HPI. ROS Other: All systems not noted in ROS Statement are negative. EKG Findings - EKG Comments: EKG Findings:: EKG is sinus 74 NE 152 QRS 91 QTc 424 - EKG Results: EKG: interpreted by YON Past Medical History Past Medical History: Asthma, CVA/TIA, GERD/Reflux, Liver Disease, Osteoarthritis (OA) Additional Past Medical History / Comment(s): ELEVATED LIVER ENZYMES., HX OF PERFORATED STOMACH ULCER., sister states patient has HEPATITIS C, epigastric pain, recent admission for taking too much tylenol pm per pt. Etoh withdrawal seizures History of Any Multi-Drug Resistant Organisms: None Reported Past Surgical History: Hernia Repair, Tubal Ligation Additional Past Surgical History / Comment(s): PLASTIC SURGERY TO FOREHEAD, PERFORATED STOMACH ULCER. laser surgery to right leg for varicose veins Past Anesthesia/Blood Transfusion Reactions: No Reported Reaction Past Psychological History: ADD/ADHD, Anxiety, Depression Smoking Status: Current every day smoker Past Alcohol Use History: Daily, Heavy Past Drug Use History: Marijuana, Methamphetamine, Prescription Drug Abuse - Past Family History Mother Family Medical History: Cancer Additional Family Medical History / Comment(s): OVARIAN CA Father History Unknown: Yes Additional Family Medical History / Comment(s): father when patient was very young (2 year old), he of a gunshot wound outside of a bar at the age of 23 General Exam Limitations: no limitations General appearance: alert, in no apparent distress Head exam: Present: atraumatic, normocephalic, normal inspection Eye exam: Present: normal appearance, PERRL, EOMI. Absent: scleral icterus, conjunctival injection, periorbital swelling ENT exam: Present: normal exam, mucous membranes moist Neck exam: Present: normal inspection. Absent: tenderness, meningismus, lymphadenopathy Respiratory exam: Present: normal lung sounds bilaterally. Absent: respiratory distress, wheezes, rales, rhonchi, stridor Cardiovascular Exam: Present: regular rate, normal rhythm, normal heart sounds. Absent: systolic murmur, diastolic murmur, rubs, gallop, clicks GI/Abdominal exam: Present: soft, normal bowel sounds. Absent: distended, tenderness, guarding, rebound, rigid Extremities exam: Present: normal inspection, full ROM, normal capillary refill. Absent: tenderness, pedal edema, joint swelling, calf tenderness Back exam: Present: normal inspection Neurological exam: Present: alert, oriented X3, CN II-XII intact Psychiatric exam: Present: normal affect, normal mood Skin exam: Present: warm, dry, intact, normal color. Absent: rash Course Vital Signs 06/03/24 18:12 Temperature 97.8 F Pulse Rate 70 Respiratory 22 Rate Blood Pressure 153/87 O2 Sat by Pulse 98 Oximetry - Reevaluation(s) Reevaluation #1: 06/03/24 18:46 Medical records reviewed Reevaluation #4: 06/03/24 18:46 Was pt. sent in by a medical professional or institution (NORMAN Merino, CERTIFIED PHARMACIST ASSISTANT, urgent care, hospital, or alf...) When possible be specific @ -no Did you speak to anyone other than the patient for history (EMS, parent, family, police, friend...)? What history was obtained from this source @ -no Did you review nursing and triage notes (agree or disagree)? Why? @ -agree Are old charts reviewed (outside hosp., previous admission, EMS record, old EKG, old radiological studies, urgent care reports/EKG's, alf records)? Report findings @ -yes Differential Diagnosis (chest pain, altered mental status, abdominal pain women, abdominal pain men, vaginal bleeding, weakness, fever, dyspnea, syncope, headache, dizziness, GI bleed, back pain, seizure, CVA, palpatations, mental health, musculoskeletal)? @ -prior EKG interpreted by me (3pts min.). @ -yes X-rays interpreted by me (1pt min.). @ -yes negative for acute disease CT interpreted by me (1pt min.). @ -no U/S interpreted by me (1pt. min.). @ -no What testing was considered but not performed or refused? (CT, X-rays, U/S, labs)? Why? @ -none What meds were considered but not given or refused? Why? @ -none Did you discuss the management of the patient with other professionals (professionals i.e. NORMAN Merino, CERTIFIED PHARMACIST ASSISTANT, lab, RT, psych nurse, social staff worker, loom operator apprentice, teacher, correction officer city or county jail, case monitor)? Give summary @ -no Was smoking cessation discussed for >3mins.? @ -no Was critical care preformed (if so, how long)? @ -no Were there social determinants of health that impacted care today? How? (Homelessness, low income, unemployed, alcoholism, drug addiction, transportation, low edu. Level, literacy, decrease access to med. care, [facility], rehab)? @ -none Was there de-escalation of care discussed even if they declined (Discuss DNR or withdrawal of care, Hospice)? DNR status @ -no What co-morbidities impacted this encounter? (DM, HTN, Smoking, COPD, CAD, Cancer, CVA, ARF, Chemo, Hep., AIDS, mental health diagnosis, sleep apnea, morbid obesity)? @ -none Was patient admitted / discharged? Hospital course, mention meds given and route, prescriptions, significant lab abnormalities, going to OR and other pertinent info. @ - Undiagnosed new problem with uncertain prognosis? @ -no Drug Therapy requiring intensive monitoring for toxicity (Heparin, Nitro, Insulin, Cardizem)? @ -no Were any procedures done? @ -no Diagnosis/symptom? @ - Acute, or Chronic, or Acute on Chronic? @ -Acute Uncomplicated (without systemic symptoms) or Complicated (systemic symptoms)? @ -Complicated Side effects of treatment? @ -no Exacerbation, Progression, or Severe Exacerbation? @ -exacerbation Poses a threat to life or bodily function? How? (Chest pain, USA, MA, pneumonia, PE, COPD, DKA, ARF, appy, cholecystitis, CVA, Diverticulitis, Homicidal, Suicidal, threat to staff... and all critical care pts) @ -yes Reevaluation #5: 06/03/24 18:46 Differential Chest Pain: Stable Angina, Unstable Angina, STEMI, NSTEMI Aortic Dissection, Pneumothorax, Musculoskeletal, Esophageal Spasm GERD, Cholecystitis, Pancreatitis, Zoster, this is not meant to be an all-inclusive list. Disposition Clinical Impression: Chest pain, Atypical chest pain Disposition: HOME SELF-CARE Condition: Good Instructions (If sedation given, give patient instructions): Chest Pain (ED) Is patient prescribed a controlled substance at d/c from ED?: No Referrals: Danny Pedersen MD [Primary Care Provider] - 1-2 days Time of Disposition: 20:00
[2024-06-03] MEDS: ONDANSETRON 4 MG/2 ML VIAL IVP STA (18:28)
[2024-06-03] MEDS: SODIUM CHLORIDE 0.9% 1,000 ML IV STA (18:29)
[2024-06-03 18:37] LABS: Basophils % (A) 0 %; Eosinophils % (A) 1 %; HCT 35.5 % (34.0-46.0); HGB 11.8 gm/dL (11.4-16.0); Lymphocytes # (A) 1.2 k/uL (1.0-4.8); Lymphocytes % (A) 22 %; MCH 29.4 pg (25.0-35.0); MCHC 33.3 g/dL (31.0-37.0); MCV 88.3 fL (80.0-100.0); Mean Platelet Volume 7.7; Monocytes # (A) 0.3 k/uL (0-1.0); Monocytes % (A) 5 %; Neutrophils # (A) 4.1 k/uL (1.3-7.7); Neutrophils % (A) 72 %; Platelet Count 125 k/uL (150-450); RBC 4.02 m/uL (3.80-5.40); RDW 15.3 % (11.5-15.5); WBC 5.7 k/uL (3.8-10.6)
--- NOTE | 2024-06-03 18:46 | XR ---
EXAMINATION TYPE: XR chest 2V DATE OF EXAM: 06/03/2024 6:42 PM COMPARISON: 02/23/[address] chest dated 05/14/2024 CLINICAL INDICATION: Female, 68 years old with history of Chest Pain: Shortness of breath TECHNIQUE: XR chest 2V views of the chest are obtained. FINDINGS: Scattered senescent parenchymal changes noted. Hyperinflation compatible with COPD. No evidence for infiltrate. No evidence for atelectasis. Stable strandy nodular density described on prior CT as mucoid impaction. Heart size is stable. Mediastinal structures are stable and grossly unremarkable. No evidence for hilar prominence. Degenerative changes dorsal spine. IMPRESSION: 1. No evidence for acute pulmonary disease. [facility], , 06/03/2024 6:43 PM
[2024-06-03 18:51] LABS: ALT 49 U/L (4-34); AST 52 U/L (14-36); African American GFR (CKD) >90 (>60 ml/min/1.73 sqM); Alcohol <10 mg/dL; Alkaline Phosphatase 71 U/L (38-126); Anion Gap 6 mmol/L; Blood Urea Nitrogen 12 mg/dL (7-17); Carbon Dioxide 25 mmol/L (22-30); Chloride 105 mmol/L (98-107); Glucose 140 mg/dL (74-99); Lipase 131 U/L (23-300); Magnesium 1.6 mg/dL (1.6-2.3); Non-African American GFR(CKD) >90 (>60 ml/min/1.73 sqM); Partial Thromboplastin Time 22.9 sec (22.0-30.0); Potassium 4.2 mmol/L (3.5-5.1); Prothrombin Time 11.1 sec (10.0-12.5); Sodium 136 mmol/L (137-145); Total Bilirubin 0.5 mg/dL (0.2-1.3); Total Protein 7.3 g/dL (6.3-8.2)
[2024-06-03 18:58] LABS: NT-Pro-B-Type Natriuretic Pept 79 pg/mL
[2024-06-03 19:11] LABS: Influenza A Not Detected (Not Detectd); Influenza B Not Detected (Not Detectd); RSV Not Detected (Not Detectd)
[2024-06-03] MEDS: DEXAMETHASONE SOD PHOSPHATE 10 MG/ML 1 ML VIAL IVP STA (20:05)
[2024-06-03] MEDS: IPRATROPIUM-ALBUTEROL 3 ML NEB INHALATION STA (20:07)
[2024-06-03] MEDS: KETOROLAC 15 MG/ML 1 ML VIAL IVP STA (20:07)
[2024-06-03 20:09] VITALS: BP 158/81; RESP 20
[2024-06-03 20:20] VITALS: PULSE 80
== END 2024-06-03 21:23 | disposition home or self-care (01) ==
LOC: EC 18:11
DX: R07.89 Other chest pain (principal); F17.210 Nicotine dependence, cigarettes, uncomplicated; Z86.73 Personal history of transient ischemic attack (TIA), and cerebral infarction without residual deficits
CPT/HCPCS: 36415; 94640; 93005; 83880; 80053; 83690; 83735; 84484; 85025; 85610; 85730; 80320; 87636; 71046; 99285; 96374; 96375 ×2; 96361; J1100; J2405; J1885

== ENCOUNTER 2024-06-14 07:38 | Observation (INO) | payer MEDICARE, OTHER ==
[2024-06-14 07:47] VITALS: RESP 18; TEMP 98.2
[2024-06-14 08:20] LABS: Basophils # (A) 0.04 10*3/uL (0.00-0.10); Basophils % (A) 0.6 %; Eosinophils # (A) 0.06 10*3/uL (0.04-0.35); Eosinophils % (A) 0.8 %; HCT 34.2 % (37.2-46.3); HGB 11.6 g/dL (12.0-15.0); Lymphocytes # (A) 3.38 10*3/uL (0.90-5.00); Lymphocytes % (A) 47.7 %; MCH 29.5 pg (27.0-32.0); MCHC 33.9 g/dL (32.0-37.0); Mean Platelet Volume 9.7 fL (9.5-12.2); Monocytes # (A) 0.33 10*3/uL (0.20-1.00); Monocytes % (A) 4.7 %; Neutrophils # (A) 3.26 10*3/uL (1.80-7.70); Neutrophils % (A) 45.9 %; Platelet Count 146 10*3/uL (140-440); RBC 3.93 10*6/uL (4.10-5.20); RDW 14.8 % (11.5-14.5); WBC 7.09 10*3/uL (4.50-10.00)
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
[2024-06-14 08:37] LABS: ALT 29 U/L (4-34); AST 52 U/L (14-36); African American GFR (CKD) >90 (>60 ml/min/1.73 sqM); Albumin 4.1 g/dL (3.5-5.0); Alkaline Phosphatase 75 U/L (38-126); Anion Gap 15 mmol/L; Blood Urea Nitrogen 14 mg/dL (7-17); Calcium 8.7 mg/dL (8.4-10.2); Carbon Dioxide 20 mmol/L (22-30); Chloride 107 mmol/L (98-107); Glucose 62 mg/dL (74-99); Non-African American GFR(CKD) >90 (>60 ml/min/1.73 sqM); Potassium 3.7 mmol/L (3.5-5.1); Sodium 142 mmol/L (137-145); Total Bilirubin 0.9 mg/dL (0.2-1.3); Total Protein 7.4 g/dL (6.3-8.2)
[2024-06-14 08:38] LABS: INR 1.1 (<1.2); Partial Thromboplastin Time 24.7 sec (22.0-30.0); Prothrombin Time 12.2 sec (10.0-12.5)
[2024-06-14 08:49] LABS: Alcohol 286 mg/dL
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
[2024-06-14] MEDS ORDERED: ACETAMINOPHEN TAB 325 MG TAB PO PRN (10:15)
[2024-06-14] MEDS ORDERED: NALOXONE 0.4 MG/ML 1 ML VIAL IV PRN (10:15)
[2024-06-14 10:41] LABS: Glucose,Whole Blood 60 mg/dL (70-110)
[2024-06-14 12:06] VITALS: BP 135/70; PULSE 98
== END 2024-06-14 12:11 | disposition home or self-care (01) ==
LOC: EC 07:38 → 5NMEDONC 10:15
PROVIDERS: ADMIT Internal Medicine; ATTEND Internal Medicine
DX: F10.229 Alcohol dependence with intoxication, unspecified (principal); S30.1XXA Contusion of abdominal wall, initial encounter; S30.0XXA Contusion of lower back and pelvis, initial encounter; Y01.XXXA Assault by pushing from high place, initial encounter; Y90.8 Blood alcohol level of 240 mg/100 ml or more; F17.200 Nicotine dependence, unspecified, uncomplicated; Z79.02 Long term (current) use of antithrombotics/antiplatelets; Z79.899 Other long term (current) drug therapy; Y07.010 Husband, current, perpetrator of maltreatment and neglect
CPT/HCPCS: 99285; 36415; 80053; 85025; 85610; 85730; 80320; 72100; 72170; 71046; 72125; 70450; G0378

== ENCOUNTER 2024-06-18 17:15 | Inpatient (IN) | payer MEDICARE, OTHER ==
--- NOTE | 2024-06-18 17:58 | ED ---
General Adult HPI - General Chief complaint: Altered Mental Status Stated complaint: AMS Time Seen by Provider: 06/18/24 17:42 Source: patient, family Mode of arrival: wheelchair Limitations: no limitations - History of Present Illness Initial comments: Dictation was produced using vushaper dictation software. please excuse any grammatical, word or spelling errors. Chief Complaint: 68-year-old female presents with altered mental status History of Present Illness: Patient 68-year-old alcoholic female presents emergency department for altered mental status. Patient history present illness obtained by daughter and niece at the bedside. Apparently she was last normal 4 days ago. She has history of alcohol and drug use. States that she uses illic it substances at home that she gets from her friends. They went to visit her today and noticed that she was covered in bruises cuts and she was making nonsensical speech. She did have bruises in cuts all over her body. Patient unable to provide HPI at this time due to mental status. Unable to obtain ROS secondary mental status - Related Data Home Medications Medication Instructions Recorded Confirmed Atorvastatin [Lipitor] 40 mg PO HS 08/24/21 06/18/24 Clopidogrel [Plavix] 75 mg PO DAILY 08/24/21 06/18/24 Escitalopram [Lexapro] 20 mg PO DAILY 08/24/21 06/18/24 QUEtiapine [SEROquel] 25 mg PO HS 08/24/21 06/18/24 rOPINIRole HCL [Requip] 1 mg PO BID 08/24/21 06/18/24 Ergocalciferol [Vitamin D2 (1250 1,250 mcg PO WEEKLY 06/14/24 06/18/24 Mcg = 86050 Iu)] levETIRAcetam [Keppra] 2,000 mg PO Q12HR 06/14/24 06/18/24 lisinopriL [Zestril] 10 mg PO DAILY 06/14/24 06/18/24 Allergies Allergy/AdvReac Type Severity Reaction Status Date / Time No Known Allergies Allergy Verified 06/18/24 19:53 Review of Systems ROS Statement: Those systems with pertinent positive or pertinent negative responses have been documented in the HPI. ROS Other: All systems not noted in ROS Statement are negative. Past Medical History Past Medical History: Asthma, CVA/TIA, GERD/Reflux, Liver Disease, Osteoarthritis (OA) Additional Past Medical History / Comment(s): ELEVATED LIVER ENZYMES., HX OF PERFORATED STOMACH ULCER., sister states patient has HEPATITIS C, epigastric pain, recent admission for taking too much tylenol pm per pt. Etoh withdrawal seizures History of Any Multi-Drug Resistant Organisms: None Reported Past Surgical History: Hernia Repair, Tubal Ligation Additional Past Surgical History / Comment(s): PLASTIC SURGERY TO FOREHEAD, PERFORATED STOMACH ULCER. laser surgery to right leg for varicose veins Past Anesthesia/Blood Transfusion Reactions: No Reported Reaction Past Psychological History: ADD/ADHD, Anxiety, Depression Smoking Status: Current every day smoker Past Alcohol Use History: Daily, Heavy Past Drug Use History: Marijuana, Methamphetamine, Prescription Drug Abuse - Past Family History Mother Family Medical History: Cancer Additional Family Medical History / Comment(s): OVARIAN CA Father History Unknown: Yes Additional Family Medical History / Comment(s): father when patient was very young (2 year old), he of a gunshot wound outside of a bar at the age of 24 General Exam - General Exam Comments Initial Comments: PHYSICAL EXAM: General Impression: Confused, not in acute distress HEENT: Anterior forehead,, extra-ocular movements intact, pupils equal and reactive to light bilaterally, mucous membranes moist. Cardiovascular: Heart regular rate and rhythm Chest: Able to complete full sentences, no retractions, no tachypnea Abdomen: abdomen soft, non-tender, non-distended, no organomegaly Musculoskeletal: Pulses present and equal in all extremities, no peripheral edema Motor: no focal deficits noted Neurological: CN II-XII grossly intact, confused, nonsensical speech Skin: multiple bruises and cuts at various stages of healing Limitations: no limitations Course Vital Signs 06/18/24 06/18/24 06/18/24 17:32 18:33 19:00 Temperature 100.3 F H Pulse Rate 105 H 104 H 105 H Respiratory 20 18 16 Rate Blood Pressure 100/69 101/85 126/87 O2 Sat by Pulse 98 98 97 Oximetry 06/18/24 19:45 Temperature Pulse Rate 142 H Respiratory 24 Rate Blood Pressure 125/90 O2 Sat by Pulse 99 Oximetry - Reevaluation(s) Reevaluation #1: 06/18/24 20:17 Patient in A-fib with RVR. Given IV fluids. Heart rate improved still elevated. Patient started on Cardizem. Patient not good candidate for anticoagulation medication secondary to elevated HAS-BLED score EKG Findings - EKG Comments: EKG Findings:: My EKG interpretation: Ventricular rate 185, A-fib with RVR, QRS 91, QTc 334. No QTC prolongation, no ST or T-wave changes noted. Medical Decision Making - Medical Decision Making Was pt. sent in by a medical professional or institution (, PA, TELEHEALTH NURSE, urgent care, hospital, or skilled nursing...) When possible be specific @ -No Did you speak to anyone other than the patient for history (EMS, parent, family, police, friend...)? What history was obtained from this source @ -No Did you review nursing and triage notes (agree or disagree)? Why? @ -I reviewed and agree with nursing and triage notes Were old charts reviewed (outside hosp., previous admission, EMS record, old EKG, old radiological studies, urgent care reports/EKG's, skilled nursing records)? Report findings @ -No old charts were reviewed Differential Diagnosis (chest pain, altered mental status, abdominal pain women, abdominal pain men, vaginal bleeding, musculoskeletal, weakness, fever, dyspnea, syncope, headache, dizziness, GI bleed, back pain, seizure, CVA, palpatations, mental health)? @ -Differential Altered Mental Status: Hypoglycemia, DKA, hypercapnia, ETOH, overdose, CO poisoning, trauma, myxedema coma, HTN encephalopathy, infection, encephalitis, psychosis, intercranial hemorrhage, hepatic encephalopathy, meningitis, CVA, this is not meant to be an all-inclusive list EKG interpreted by me (3pts min.). @ -See above X-rays interpreted by me (1pt min.). @ -None done CT interpreted by me (1pt min.). @ -CT brain C-spine shows no acute process. CT chest abdomen pelvis shows multiple rib fractures along with L1 vertebral compression fracture U/S interpreted by me (1pt. min.). @ -None done What testing was considered but not performed or refused? (CT, X-rays, U/S, labs)? Why? @ -None What meds were considered but not given or refused? Why? @ -None Was smoking cessation discussed for >3mins.? @ -No Were there social determinants of health that impacted care today? How? (Homelessness, low income, unemployed, alcoholism, drug addiction, transportation, low edu. Level, literacy, decrease access to med. care, usp, rehab)? @ -Alcoholism Was there de-escalation of care discussed even if they declined (Discuss DNR or withdrawal of care, Hospice)? DNR status @ -No What co-morbidities impacted this encounter? (DM, HTN, Smoking, COPD, CAD, Cancer, CVA, ARF, Chemo, Hep., AIDS, mental health diagnosis, sleep apnea, morbid obesity)? @ -None Was patient admitted / discharged? Hospital course, mention meds given and route, prescriptions, significant lab abnormalities, going to OR and other pertinent info. @ -68-year-old female presents to the emergency department for altered mental status. There was concern that patient had fallen. Last seen normal 4 days ago. Patient has a superficial laceration on her chin. No negation for suture repair at this time. Patient has low-grade temperature of unclear etiology. No concern for meningitis given that patient has negative Lhermitte's, negative Brezinski and negative Kernig sign. Laboratory evaluation obtained. Hypokalemia 2.4, lactic acidosis 3.0. Troponin elevation 0.261 likely secondary to A-fib RVR. Urinalysis negative. Imaging study shows multilevel rib fract ure and L1 compression fracture. Case discussed with trauma surgery who will admit the patient. Multiple consultations made. Patient on Cardizem with good rate control. Did you discuss the management of the patient with other professionals (professionals i.e. , PA, TELEHEALTH NURSE, lab, RT, psych nurse, vp digital marketing social media and crm, unemployment claims adjudicator, teacher, security police officer, correctional counselor/case manager)? Give summary @ -Case discussed with Dr. Rico for admission. Case also discussed with [facility] for medicine consultation Was critical care preformed (if so, how long)? @ -yes, 77 minutes Undiagnosed new problem with uncertain prognosis? @ -No Drug Therapy requiring intensive monitoring for toxicity (Heparin, Nitro, Insulin, Cardizem)? @ -No Were any procedures done? @ -No Diagnosis/symptom? Acute, or Chronic, or Acute on Chronic? Uncomplicated (without systemic symptoms) or Complicated (systemic symptoms)? @ -A-fib RVR, rib fracture, vertebral fracture Side effects of treatment? @ -No Exacerbation, Progression, or Severe Exacerbation? @ -No Poses a threat to life or bodily function? How? (Chest pain, [place], [place], pneumonia, PE, COPD, DKA, ARF, appy, cholecystitis, CVA, Diverticulitis, Homicidal, Suicidal, threat to staff... and all critical care pts) @ -yes - Lab Data Result diagrams: 06/18/24 18:31 06/18/24 18:31 Lab Results 06/18/24 06/18/24 06/18/24 Range/Units 18:31 18:31 18:31 WBC 8.30 (4.50-10.00) 10*3/uL RBC 3.23 L (4.10-5.20) 10*6/uL Hgb 10.1 L (12.0-15.0) g/dL Hct 27.7 L (37.2-46.3) % MCV 85.8 (80.0-97.0) fL MCH 31.3 (27.0-32.0) pg MCHC 36.5 (32.0-37.0) g/dL Plt Count 91 L (140-440) 10*3/uL MPV 10.9 (9.5-12.2) fL Immature Gran % (Auto) 0.5 % Neutrophils % 72.6 % Lymphocytes % 19.9 % Monocytes % 6.7 % Eosinophils % 0.1 % Basophils % 0.2 % Immature Gran # 0.04 (0.00-0.04) 10*3/uL Neutrophils # 6.02 (1.80-7.70) 10*3/uL Lymphocytes # 1.65 (0.90-5.00) 10*3/uL Monocytes # 0.56 (0.20-1.00) 10*3/uL Eosinophils # 0.01 L (0.04-0.35) 10*3/uL Basophils # 0.02 (0.00-0.10) 10*3/uL Manual Slide Review Performed PT (10.0-12.5) sec INR (<1.2) APTT (22.0-30.0) sec Sodium (137-145) mmol/L Potassium (3.5-5.1) mmol/L Chloride (98-107) mmol/L Carbon Dioxide (22-30) mmol/L Anion Gap mmol/L BUN (7-17) mg/dL Creatinine (0.52-1.04) mg/dL Est GFR (CKD-EPI)AfAm (>60 ml/min/1.73 sqM) Est GFR (CKD-EPI)NonAf (>60 ml/min/1.73 sqM) Glucose (74-99) mg/dL Lactic Ac Sepsis Rflx Plasma Lactic Acid Al (0.7-2.0) mmol/L Calcium (8.4-10.2) mg/dL Total Bilirubin (0.2-1.3) mg/dL AST (14-36) U/L ALT (4-34) U/L Alkaline Phosphatase (38-126) U/L Creatine Kinase (30-135) U/L Troponin I (0.000-0.034) ng/mL Total Protein (6.3-8.2) g/dL Albumin (3.5-5.0) g/dL Urine Color Urine Appearance (Clear) Urine pH (5.0-8.0) Ur Specific [place] (1.001-1.035) Urine Protein (Negative) Urine Glucose (UA) (Negative) Urine Ketones (Negative) Urine Blood (Negative) Urine Nitrite (Negative) Urine Bilirubin (Negative) Urine Urobilinogen (<2.0) mg/dL Ur Leukocyte Esterase (Negative) Urine RBC (0-5) /hpf Urine WBC (0-5) /hpf Ur Squamous Epith Cells (0-4) /hpf Urine Bacteria (None) /hpf Hyaline Casts (0-2) /lpf Urine Mucus (None) /hpf Urine HCG, Qual Not Detected (Not Detectd) Salicylates mg/dL Urine Opiates Screen Detected H (NotDetected) Ur Oxycodone Screen Not Detected (NotDetected) Urine Methadone Screen Not Detected (NotDetected) Acetaminophen ug/mL Ur Barbiturates Screen Not Detected (NotDetected) U Tricyclic Antidepress Detected H (NotDetected) Ur Phencyclidine Scrn Not Detected (NotDetected) Ur Amphetamines Screen Not Detected (NotDetected) U Methamphetamines Scrn Not Detected (NotDetected) U Benzodiazepines Scrn Not Detected (NotDetected) Urine Cocaine Screen Not Detected (NotDetected) U Marijuana (THC) Screen Detected H (NotDetected) Serum Alcohol mg/dL 06/18/24 06/18/24 06/18/24 Range/Units 18:31 18:31 18:31 WBC (4.50-10.00) 10*3/uL RBC (4.10-5.20) 10*6/uL Hgb (12.0-15.0) g/dL Hct (37.2-46.3) % MCV (80.0-97.0) fL MCH (27.0-32.0) pg MCHC (32.0-37.0) g/dL Plt Count (140-440) 10*3/uL MPV (9.5-12.2) fL Immature Gran % (Auto) % Neutrophils % % Lymphocytes % % Monocytes % % Eosinophils % % Basophils % % Immature Gran # (0.00-0.04) 10*3/uL Neutrophils # (1.80-7.70) 10*3/uL Lymphocytes # (0.90-5.00) 10*3/uL Monocytes # (0.20-1.00) 10*3/uL Eosinophils # (0.04-0.35) 10*3/uL Basophils # (0.00-0.10) 10*3/uL Manual Slide Review PT 12.7 H (10.0-12.5) sec INR 1.2 H (<1.2) APTT 22.4 (22.0-30.0) sec Sodium 132 L (137-145) mmol/L Potassium 2.5 L* (3.5-5.1) mmol/L Chloride 98 (98-107) mmol/L Carbon Dioxide 24 (22-30) mmol/L Anion Gap 10 mmol/L BUN 17 (7-17) mg/dL Creatinine 0.62 (0.52-1.04) mg/dL Est GFR (CKD-EPI)AfAm >90 (>60 ml/min/1.73 sqM) Est GFR (CKD-EPI)NonAf >90 (>60 ml/min/1.73 sqM) Glucose 103 H (74-99) mg/dL Lactic Ac Sepsis Rflx Plasma Lactic Acid Al 3.0 H* (0.7-2.0) mmol/L Calcium 8.5 (8.4-10.2) mg/dL Total Bilirubin 2.6 H (0.2-1.3) mg/dL AST 60 H (14-36) U/L ALT 28 (4-34) U/L Alkaline Phosphatase 57 (38-126) U/L Creatine Kinase (30-135) U/L Troponin I (0.000-0.034) ng/mL Total Protein 6.9 (6.3-8.2) g/dL Albumin 3.8 (3.5-5.0) g/dL Urine Color Urine Appearance (Clear) Urine pH (5.0-8.0) Ur Specific [place] (1.001-1.035) Urine Protein (Negative) Urine Glucose (UA) (Negative) Urine Ketones (Negative) Urine Blood (Negative) Urine Nitrite (Negative) Urine Bilirubin (Negative) Urine Urobilinogen (<2.0) mg/dL Ur Leukocyte Esterase (Negative) Urine RBC (0-5) /hpf Urine WBC (0-5) /hpf Ur Squamous Epith Cells (0-4) /hpf Urine Bacteria (None) /hpf Hyaline Casts (0-2) /lpf Urine Mucus (None) /hpf Urine HCG, Qual (Not Detectd) Salicylates <1.0 mg/dL Urine Opiates Screen (NotDetected) Ur Oxycodone Screen (NotDetected) Urine Methadone Screen (NotDetected) Acetaminophen <10.0 ug/mL Ur Barbiturates Screen (NotDetected) U Tricyclic Antidepress (NotDetected) Ur Phencyclidine Scrn (NotDetected) Ur Amphetamines Screen (NotDetected) U Methamphetamines Scrn (NotDetected) U Benzodiazepines Scrn (NotDetected) Urine Cocaine Screen (NotDetected) U Marijuana (THC) Screen (NotDetected) Serum Alcohol 15 mg/dL 06/18/24 06/18/24 06/18/24 Range/Units 18:31 18:31 18:51 WBC (4.50-10.00) 10*3/uL RBC (4.10-5.20) 10*6/uL Hgb (12.0-15.0) g/dL Hct (37.2-46.3) % MCV (80.0-97.0) fL MCH (27.0-32.0) pg MCHC (32.0-37.0) g/dL Plt Count (140-440) 10*3/uL MPV (9.5-12.2) fL Immature Gran % (Auto) % Neutrophils % % Lymphocytes % % Monocytes % % Eosinophils % % Basophils % % Immature Gran # (0.00-0.04) 10*3/uL Neutrophils # (1.80-7.70) 10*3/uL Lymphocytes # (0.90-5.00) 10*3/uL Monocytes # (0.20-1.00) 10*3/uL Eosinophils # (0.04-0.35) 10*3/uL Basophils # (0.00-0.10) 10*3/uL Manual Slide Review PT (10.0-12.5) sec INR (<1.2) APTT (22.0-30.0) sec Sodium (137-145) mmol/L Potassium (3.5-5.1) mmol/L Chloride (98-107) mmol/L Carbon Dioxide (22-30) mmol/L Anion Gap mmol/L BUN (7-17) mg/dL Creatinine (0.52-1.04) mg/dL Est GFR (CKD-EPI)AfAm (>60 ml/min/1.73 sqM) Est GFR (CKD-EPI)NonAf (>60 ml/min/1.73 sqM) Glucose (74-99) mg/dL Lactic Ac Sepsis Rflx Y Plasma Lactic Acid Al (0.7-2.0) mmol/L Calcium (8.4-10.2) mg/dL Total Bilirubin (0.2-1.3) mg/dL AST (14-36) U/L ALT (4-34) U/L Alkaline Phosphatase (38-126) U/L Creatine Kinase (30-135) U/L Troponin I 0.261 H* (0.000-0.034) ng/mL Total Protein (6.3-8.2) g/dL Albumin (3.5-5.0) g/dL Urine Color Yellow Urine Appearance Cloudy H (Clear) Urine pH 6.5 (5.0-8.0) Ur Specific [place] 1.020 (1.001-1.035) Urine Protein Trace H (Negative) Urine Glucose (UA) Negative (Negative) Urine Ketones Negative (Negative) Urine Blood Small H (Negative) Urine Nitrite Negative (Negative) Urine Bilirubin 1+ H (Negative) Urine Urobilinogen >12.0 (<2.0) mg/dL Ur Leukocyte Esterase Negative (Negative) Urine RBC 3 (0-5) /hpf Urine WBC 4 (0-5) /hpf Ur Squamous Epith Cells 3 (0-4) /hpf Urine Bacteria Rare H (None) /hpf Hyaline Casts 18 H (0-2) /lpf Urine Mucus Rare H (None) /hpf Urine HCG, Qual (Not Detectd) Salicylates mg/dL Urine Opiates Screen (NotDetected) Ur Oxycodone Screen (NotDetected) Urine Methadone Screen (NotDetected) Acetaminophen ug/mL Ur Barbiturates Screen (NotDetected) U Tricyclic Antidepress (NotDetected) Ur Phencyclidine Scrn (NotDetected) Ur Amphetamines Screen (NotDetected) U Methamphetamines Scrn (NotDetected) U Benzodiazepines Scrn (NotDetected) Urine Cocaine Screen (NotDetected) U Marijuana (THC) Screen (NotDetected) Serum Alcohol mg/dL 06/18/24 Range/Units 19:06 WBC (4.50-10.00) 10*3/uL RBC (4.10-5.20) 10*6/uL Hgb (12.0-15.0) g/dL Hct (37.2-46.3) % MCV (80.0-97.0) fL MCH (27.0-32.0) pg MCHC (32.0-37.0) g/dL Plt Count (140-440) 10*3/uL MPV (9.5-12.2) fL Immature Gran % (Auto) % Neutrophils % % Lymphocytes % % Monocytes % % Eosinophils % % Basophils % % Immature Gran # (0.00-0.04) 10*3/uL Neutrophils # (1.80-7.70) 10*3/uL Lymphocytes # (0.90-5.00) 10*3/uL Monocytes # (0.20-1.00) 10*3/uL Eosinophils # (0.04-0.35) 10*3/uL Basophils # (0.00-0.10) 10*3/uL Manual Slide Review PT (10.0-12.5) sec INR (<1.2) APTT (22.0-30.0) sec Sodium (137-145) mmol/L Potassium (3.5-5.1) mmol/L Chloride (98-107) mmol/L Carbon Dioxide (22-30) mmol/L Anion Gap mmol/L BUN (7-17) mg/dL Creatinine (0.52-1.04) mg/dL Est GFR (CKD-EPI)AfAm (>60 ml/min/1.73 sqM) Est GFR (CKD-EPI)NonAf (>60 ml/min/1.73 sqM) Glucose (74-99) mg/dL Lactic Ac Sepsis Rflx Plasma Lactic Acid Al (0.7-2.0) mmol/L Calcium (8.4-10.2) mg/dL Total Bilirubin (0.2-1.3) mg/dL AST (14-36) U/L ALT (4-34) U/L Alkaline Phosphatase (38-126) U/L Creatine Kinase 485 H (30-135) U/L Troponin I (0.000-0.034) ng/mL Total Protein (6.3-8.2) g/dL Albumin (3.5-5.0) g/dL Urine Color Urine Appearance (Clear) Urine pH (5.0-8.0) Ur Specific [place] (1.001-1.035) Urine Protein (Negative) Urine Glucose (UA) (Negative) Urine Ketones (Negative) Urine Blood (Negative) Urine Nitrite (Negative) Urine Bilirubin (Negative) Urine Urobilinogen (<2.0) mg/dL Ur Leukocyte Esterase (Negative) Urine RBC (0-5) /hpf Urine WBC (0-5) /hpf Ur Squamous Epith Cells (0-4) /hpf Urine Bacteria (None) /hpf Hyaline Casts (0-2) /lpf Urine Mucus (None) /hpf Urine HCG, Qual (Not Detectd) Salicylates mg/dL Urine Opiates Screen (NotDetected) Ur Oxycodone Screen (NotDetected) Urine Methadone Screen (NotDetected) Acetaminophen ug/mL Ur Barbiturates Screen (NotDetected) U Tricyclic Antidepress (NotDetected) Ur Phencyclidine Scrn (NotDetected) Ur Amphetamines Screen (NotDetected) U Methamphetamines Scrn (NotDetected) U Benzodiazepines Scrn (NotDetected) Urine Cocaine Screen (NotDetected) U Marijuana (THC) Screen (NotDetected) Serum Alcohol mg/dL Disposition Clinical Impression: Atrial fibrillation with RVR, Rib fracture, Vertebral fracture Disposition: ADMITTED IP TO THIS HOSP Condition: Serious Referrals: Danny Pedersen MD [Primary Care Provider] - 1-2 days Decision Time: 21:39
[2024-06-18] MEDS: SODIUM CHLORIDE 0.9% 1,000 ML IV STA ×2 (18:35→19:43)
[2024-06-18 18:53] LABS: INR 1.2 (<1.2); Partial Thromboplastin Time 22.4 sec (22.0-30.0); Prothrombin Time 12.7 sec (10.0-12.5)
[2024-06-18 18:54] LABS: ALT 28 U/L (4-34); AST 60 U/L (14-36); Acetaminophen <10.0 ug/mL; African American GFR (CKD) >90 (>60 ml/min/1.73 sqM); Albumin 3.8 g/dL (3.5-5.0); Alcohol 15 mg/dL; Alkaline Phosphatase 57 U/L (38-126); Anion Gap 10 mmol/L; Blood Urea Nitrogen 17 mg/dL (7-17); Calcium 8.5 mg/dL (8.4-10.2); Carbon Dioxide 24 mmol/L (22-30); Chloride 98 mmol/L (98-107); Glucose 103 mg/dL (74-99); Non-African American GFR(CKD) >90 (>60 ml/min/1.73 sqM); Salicylate <1.0 mg/dL; Sodium 132 mmol/L (137-145); Total Bilirubin 2.6 mg/dL (0.2-1.3); Total Protein 6.9 g/dL (6.3-8.2)
[2024-06-18 18:58] LABS: Potassium 2.5 mmol/L (3.5-5.1)
[2024-06-18 19:06] LABS: Appearance,Urine Cloudy (Clear); Bacteria,Urine Rare /hpf; Bilirubin,Urine 1+ (Negative); Blood,Urine Small (Negative); Color,Urine Yellow; Glucose,Urine (UA) Negative (Negative); Hyaline Casts,Urine 18 /lpf (0-2); Ketones,Urine Negative (Negative); Leukocyte Esterase,Urine Negative (Negative); Mucus,Urine Rare /hpf; Nitrite,Urine Negative (Negative); PH, Urine 6.5 (5.0-8.0); Protein,Urine Trace (Negative); RBC,Urine 3 /hpf (0-5); Squamous Epithelial Cell,Urine 3 /hpf (0-4); Urobilinogen,Urine >12.0 mg/dL (<2.0); WBC,Urine 4 /hpf (0-5)
[2024-06-18 19:11] LABS: Basophils # (A) 0.02 10*3/uL (0.00-0.10); Basophils % (A) 0.2 %; Eosinophils # (A) 0.01 10*3/uL (0.04-0.35); Eosinophils % (A) 0.1 %; HCT 27.7 % (37.2-46.3); HGB 10.1 g/dL (12.0-15.0); Lymphocytes # (A) 1.65 10*3/uL (0.90-5.00); Lymphocytes % (A) 19.9 %; MCH 31.3 pg (27.0-32.0); MCHC 36.5 g/dL (32.0-37.0); MCV 85.8 fL (80.0-97.0); Mean Platelet Volume 10.9 fL (9.5-12.2); Monocytes # (A) 0.56 10*3/uL (0.20-1.00); Monocytes % (A) 6.7 %; Neutrophils # (A) 6.02 10*3/uL (1.80-7.70); Neutrophils % (A) 72.6 %; RBC 3.23 10*6/uL (4.10-5.20); RDW 14.7 % (11.5-14.5)
[2024-06-18] MEDS: POTASSIUM CHLORIDE 40 MEQ in WATER FOR INJECTION 1 100ML.BAG IVPB STA (19:40)
[2024-06-18 19:45] LABS: Amphetamine Screen,Urine Not Detected (NotDetected); Barbiturate Screen,Urine Not Detected (NotDetected); Benzodiazepines Screen,Urine Not Detected (NotDetected); Cocaine Screen,Urine Not Detected (NotDetected); Methadone Screen, Urine Not Detected (NotDetected); Opiate Screen,Urine Detected (NotDetected); Oxycodone Screen, Urine Not Detected (NotDetected); Phencyclidine Screen,Urine Not Detected (NotDetected); Tricyclic Antidepressant,Urine Detected (NotDetected); Urn Cannabinoid Scrn Detected (NotDetected)
[2024-06-18] MEDS: DILTIAZEM 125 MG in SODIUM CHLORIDE 0.9% 100 ML IV SCH (19:52)
[2024-06-18] MEDS: DILTIAZEM DRIP BOLUS FROM BAG 1 MG SOLN IV ONE (19:53)
[2024-06-18 20:01] LABS: Platelet Count 91 10*3/uL (140-440)
--- NOTE | 2024-06-18 20:34 | CT ---
EXAMINATION TYPE: CT ChestAbdPelvis w con DATE OF EXAM: 06/18/2024 7:48 PM COMPARISON: 05/14/2024 CLINICAL INDICATION: Female, 68 years old with history of fall; PHH, AMS, patient found on floor with multiple bruises. hx of drug and ETOH abuse. Technique: CT ChestAbdPelvis w con; Multiple axial images were obtained. Two-dimensional coronal and sagittal reconstructions were obtained. Contrast used:100 ml mL of Isovue 300 with IV Contrast, (None if empty) Oral contrast used: without Oral Contrast CT DLP: combined 2031.2 mGycm, Automated exposure control for dose reduction was used. Findings: CHEST: LUNGS/ PLEURA: There remains airspace opacities in the right upper lobe posteriorly not significantly changed from 05/14/2024. Underlying nodules possibly present. No pneumothorax or pleural effusion. AIRWAY: Patent and unremarkable. HEART: Size within normal limits. No significant coronary artery calcifications. MEDIASTINUM: No gross evidence of adenopathy. VASCULATURE: No aortic aneurysm. MUSCULOSKELETAL: Cortical buckling of right anterior rib 2, 3 with step-off present. Cortical step-of f of left posterior lateral rib 11. SOFT TISSUES/LYMPH NODES: Predominantly calcified left thyroid gland nodule. LOWER NECK: No significant findings. ABDOMEN: ABDOMEN LIVER: Caudate lobe hypertrophy with nodular contour to liver. GALLBLADDER AND BILE DUCTS: Unremarkable. PANCREAS: Unremarkable. SPLEEN: Unremarkable. ADRENAL GLANDS: Unremarkable. KIDNEYS AND URETERS: No evidence of hydronephrosis or obstructing renal calculus. The ureters are unr emarkable. Renal sinus calcifications possibly representing vascular calcifications or nonobstruct ing calculi up to 3 mm bilaterally. PELVIS BLADDER: Unremarkable REPRODUCTIVE: Unremarkable. ABDOMEN & PELVIS STOMACH AND BOWEL: No evidence of bowel obstruction. Scattered colonic diverticulosis. PERITONEUM/RETROPERITONEUM: No evidence of pneumoperitoneum or free fluid. VASCULATURE: Moderate atherosclerotic calcifications are present throughout the abdominal aorta and i ts branches. No evidence of aortic aneurysm. MUSCULOSKELETAL: Grade 1 anterolisthesis of L4 on L5 without spondylolysis.e acute L1 compression fra cture with less than 25% height loss. No significant spinal canal or neural foraminal stenosis. LYMPH NODES: No gross evidence for lymphadenopathy. SOFT TISSUE/ABDOMINAL WALL: Unremarkable IMPRESSION: 1. Acute/subacute fractures of right anterior ribs 2 and 3 and posterior lateral left rib 11. Correl ate with tenderness. 2. Acute L1 vertebral body compression fracture 25% height loss no significant retropulsion or spina l canal or neural foraminal stenosis. 3. Similar right upper lobe airspace opacities with superimposed not excluded. Short-term follow-up in 3-6 months recommended. Nodular contour to liver correlate for cirrhosis. [facility], , 06/18/2024 8:32 PM
--- NOTE | 2024-06-18 20:38 | CT ---
EXAMINATION TYPE: CT brain cspine wo con DATE OF EXAM: 06/18/2024 7:48 PM COMPARISON: 06/14/2024 CLINICAL INDICATION: Female, 68 years old with history of fall; AMS, patient found on floor with mult iple bruises. hx of drug and ETOH abuse., pain TECHNIQUE: Brain: Multiple axial CT images of the brain were obtained without IV contrast. Cspine: Axial CT images from the skull base to the inferior aspect of T2 we obtained without intraven ous contrast. Coronal and sagittal reformatted images were also reviewed. . CT DLP: combined 2031.2 mGycm, Automated exposure control for dose reduction was used. FINDINGS: Brain: Extra-axial spaces: No abnormal extra-axial fluid collections. Ventricular system: Dilatation in proportion to cerebral atrophy. Cerebral parenchyma: Cerebral atrophy. No acute intraparenchymal hemorrhage or mass effect. The mccartney -white junction is well differentiated. Scattered hypoattenuating areas are seen within the white mat ter. Cerebellum: Unremarkable. Mass effect: No evidence of midline shift. Intracranial vasculature: Atherosclerotic calcifications of the intracranial vessels. Soft tissues: Normal. Calvarium/osseous structures: No depressed skull fracture. Paranasal sinuses and mastoid air cells: Clear. Visualized orbits: Orbital contents are intact. Cervical spine: Fracture: None. Osseous structures: Multilevel degenerative disc disease changes with endplate spurring and disc oste ophyte complex's. Vertebral alignment: Within normal limits. Spinal canal/Neural Foramina: Disc osteophyte complexes at C4-C5, C5-6 and C6-C7. With at least moder ate spinal canal stenosis at C4-C5. No evidence for significant neural foraminal stenosis. Neck soft tissues: Predominant calcified left thyroid nodule measuring up to 15 mm. Other: The airway is patent. The lung apices are clear. IMPRESSION: 1. No acute intracranial process. 2. Nonspecific white matter changes, likely secondary to chronic small vessel ischemic disease. 3. No evidence of cervical spine fracture. 4. Moderate multilevel degenerative disc disease. [facility], , 06/18/2024 8:36 PM
[2024-06-18] MEDS ORDERED: NALOXONE 0.4 MG/ML 1 ML VIAL IV PRN (21:26)
[2024-06-18] MEDS: LORazepam 2 MG/ML INJ IV ONE (23:54)
[2024-06-19] MEDS ORDERED: LORazepam 2 MG/ML INJ IV PRN ×3 (01:25)
[2024-06-19] MEDS: levETIRAcetam IV 2,000 MG in SODIUM CHLORIDE 0.9% 250 ML IVPB ONE (01:51)
--- NOTE | 2024-06-19 02:08 | P.CNPUL ---
History of Present Illness Consult date: 06/19/24 Requesting physician: Ruddy Quispe Reason for consult: other Chief complaint: Rib fractures History of present illness: Patient is a 68-year-old female with past medical history significant for COPD, tobacco smoker, alcoholism, liver disease, hepatitis C, polysubstance abuse, seizure disorder. Currently, patient is altered and unable to provide useful information. No family present. Note that back in February, patient worked up for altered mental status, seizures, and possible encephalitis. She ended up being transferred to [facility] for continuous EEG monitoring. More recen tly, patient evaluated the emergency department on 06/14/24 after fall down the stairs. Patient presented back to the emergency department yesterday evening. Per the ER report noticed to be confused by family. Also, noted to have low- grade temps in the emergency department. Pulmonary consult was placed as the patient was found to have multiple rib fractures. CT of the chest, abdomen, pelvis with contrast showing acute/subacute fractures of the right anterior ribs 2 and 3 and posterior lateral left rib 11. Acute L1 vertebral compression fracture with 25% height loss, no significant retropulsion or spinal canal or neural for minimal stenosis. Similar right upper lobe airspace opacity. CT of the head and C-spine without contrast did not show any acute intracranial process. No evidence of cervical spine fracture. Nonspecific white matter changes, likely secondary to chronic small vessel ischemic disease. CBC: WBC count 8.3, hemoglobin 10.1, platelets 91,000. INR 1.2, APTT 22.4. CMP: Sodium 132, potassium 2.5, chloride 98, serum bicarb 24, BUN 17, creatinine 0.62, glucose 103. Normal saline infusing at 130 mL/h. Lactic 3 and down to 1. LFTs unremarkable. Total bilirubin 2.6. Troponin 0.26. Creatinine kidney is 485. Urinalysis fairly unremarkable. Negative leukocytes and nitrates. Urine toxicology screen positive for opiates, TCAs, and marijuana. Serum alcohol level 15. Patient currently being evaluated emergency department. According to nursing staff, experiencing some urinary retention with a total of 700 cc of urine found in the bladder with bladder ultrasound. Patient has been straight cathed x 1. She is currently awake with nonsensical speech pattern. Facial spasms or seizure activity and eye blinking. Terminated with one 1 mg Ativan IV push. History of seizures, maintained on Keppra on outpatient basis. Patient also previously noted to be in atrial fibrillation with rapid ventricular response, rate as high as 185 bpm. Previously loaded with 10 mg of IV Cardizem, and started on Cardizem which is infusing at 10 mg/h. Blood pressure is normotensive. No documented history of atrial fibrillation in EMR. As far as her pulmonary status, nonlabored breathing pattern. On room air. No crepitus or subcutaneous emphysema. No focal tenderness with palpation. Multiple bruising at various stages of healing. Chin laceration. Current vital signs: Temperature 100.1 F, heart rate 87 bpm, blood pressure 112/65 mmHg, nontachypneic, SpO2 reading 97% on room air. Review of Systems ROS unobtainable: due to mental status Past Medical History Past Medical History: Asthma, CVA/TIA, GERD/Reflux, Liver Disease, Osteoarthritis (OA) Additional Past Medical History / Comment(s): ELEVATED LIVER ENZYMES., HX OF PERFORATED STOMACH ULCER., sister states patient has HEPATITIS C, epigastric pain, recent admission for taking too much tylenol pm per pt. Etoh withdrawal seizures History of Any Multi-Drug Resistant Organisms: None Reported Past Surgical History: Hernia Repair, Tubal Ligation Additional Past Surgical History / Comment(s): PLASTIC SURGERY TO FOREHEAD, PERFORATED STOMACH ULCER. laser surgery to right leg for varicose veins Past Anesthesia/Blood Transfusion Reactions: No Reported Reaction Past Psychological History: ADD/ADHD, Anxiety, Depression Smoking Status: Current every day smoker Past Alcohol Use History: Daily, Heavy Past Drug Use History: Marijuana, Methamphetamine, Prescription Drug Abuse - Past Family History Mother Family Medical History: Cancer Additional Family Medical History / Comment(s): OVARIAN CA Father History Unknown: Yes Additional Family Medical History / Comment(s): father when patient was very young (2 year old), he of a gunshot wound outside of a bar at the age of 23 Medications and Allergies Home Medications Medication Instructions Recorded Confirmed Type Atorvastatin [Lipitor] 40 mg PO HS 08/24/21 06/18/24 History Clopidogrel [Plavix] 75 mg PO DAILY 08/24/21 06/18/24 History Escitalopram [Lexapro] 20 mg PO DAILY 08/24/21 06/18/24 History QUEtiapine [SEROquel] 25 mg PO HS 08/24/21 06/18/24 History rOPINIRole HCL [Requip] 1 mg PO BID 08/24/21 06/18/24 History Ergocalciferol [Vitamin D2 (1250 1,250 mcg PO WEEKLY 06/14/24 06/18/24 History Mcg = 15216 Iu)] levETIRAcetam [Keppra] 2,000 mg PO Q12HR 06/14/24 06/18/24 History lisinopriL [Zestril] 10 mg PO DAILY 06/14/24 06/18/24 History Allergies Allergy/AdvReac Type Severity Reaction Status Date / Time No Known Allergies Allergy Verified 06/18/24 19:53 Physical Exam Vitals: Vital Signs Temp Pulse Resp BP Pulse Ox 06/19/24 00:11 100.1 F H 87 21 112/65 96 06/18/24 21:32 110 H 18 121/71 97 06/18/24 19:45 142 H 24 125/90 99 06/18/24 19:00 105 H 16 126/87 97 06/18/24 18:33 104 H 18 101/85 98 06/18/24 17:32 100.3 F H 105 H 20 100/69 98 Intake and Output 06/18/24 06/18/24 06/19/24 14:59 22:59 06:59 Other: Weight 68.039 kg GENERAL EXAM: Alert, 68-year-old female, nonsensical speech, fairly comfortable in no apparent distress. HEAD: Normocephalic and atraumatic. EYES: Normal reaction of pupils, equal size. NOSE: Clear with pink turbinates. THROAT: No erythema or exudates. NECK: No masses, no JVD. CHEST: No chest wall deformity. No crepitus or subcutaneous emphysema. LUNGS: Equal air entry with no crackles, wheeze, rhonchi or dullness. On room air. No conversational dyspnea or accessory muscle use.. CVS: S1 and S2 normal with no audible murmur, regular rhythm. No extra heart sounds ABDOMEN: No hepatosplenomegaly, active bowel sounds, no guarding or rigidity. SPINE: No scoliosis or deformity. No notable nuchal rigidity. Negative Brudzinski and Kernig sign SKIN: No rashes CENTRAL NERVOUS SYSTEM: Alert, nonsensical speech pattern, does not follow commands appropriately, facial spasms or twitching bilaterally, blinking, right upward gaze, moves all 4 extremities. EXTREMITIES: There is no peripheral edema, clubbing, or cyanosis. Peripheral pulses are intact. Results - Laboratory Findings CBC and BMP: 06/18/24 18:31 06/18/24 18:31 PT/INR, D-dimer PT 12.7 sec (10.0-12.5) H 06/18/24 18:31 INR 1.2 (<1.2) H 06/18/24 18:31 Abnormal lab findings: Abnormal Labs 06/18/24 06/18/24 06/18/24 18:31 18:31 18:31 RBC 3.23 L Hgb 10.1 L Hct 27.7 L Plt Count 91 L Eosinophils # 0.01 L PT INR Sodium 132 L Potassium 2.5 L* Glucose 103 H Plasma Lactic Acid Al Total Bilirubin 2.6 H AST 60 H Creatine Kinase Troponin I Urine Appearance Urine Protein Urine Blood Urine Bilirubin Urine Bacteria Hyaline Casts Urine Mucus Urine Opiates Screen Detected H U Tricyclic Antidepress Detected H U Marijuana (THC) Screen Detected H 06/18/24 06/18/24 06/18/24 18:31 18:31 18:31 RBC Hgb Hct Plt Count Eosinophils # PT 12.7 H INR 1.2 H Sodium Potassium Glucose Plasma Lactic Acid Al 3.0 H* Total Bilirubin AST Creatine Kinase Troponin I Urine Appearance Cloudy H Urine Protein Trace H Urine Blood Small H Urine Bilirubin 1+ H Urine Bacteria Rare H Hyaline Casts 18 H Urine Mucus Rare H Urine Opiates Screen U Tricyclic Antidepress U Marijuana (THC) Screen 06/18/24 06/18/24 18:31 19:06 RBC Hgb Hct Plt Count Eosinophils # PT INR Sodium Potassium Glucose Plasma Lactic Acid Al Total Bilirubin AST Creatine Kinase 485 H Troponin I 0.261 H* Urine Appearance Urine Protein Urine Blood Urine Bilirubin Urine Bacteria Hyaline Casts Urine Mucus Urine Opiates Screen U Tricyclic Antidepress U Marijuana (THC) Screen - Diagnostic Findings Chest x-ray: image reviewed CT scan - chest: image reviewed Assessment and Plan Assessment: Acute/subacute fractures involving right anterior ribs 2 and 3 and posterior lateral left rib 11. No pneumothoraces or pleural effusions. No pulmonary contusions. Persistent right upper lobe infiltrate, seen on previous chest x- rays dating back to 2019, underlying malignancy is not entirely excluded but felt to be less likely. Acute L1 vertebral compression fracture, with 25% height loss, no significant retropulsion or spinal canal or neural foraminal stenosis Atrial fibrillation with rapid ventricular response, possibly new onset, currently on Cardizem infusion at 10 mg/h Elevated troponins, likely secondary to above and supply/demand mismatch Acute febrile illness, without obvious infectious source identified, previous consideration for encephalitis Altered mental status, under investigation Seizure disorder, maintained on Keppra Alcohol abuse, serum alcohol level 15 on arrival Polysubstance abuse, urine toxicology screen positive for opiates, TCAs, and mar ijuana History of liver cirrhosis History of hepatitis C Chronic thrombocytopenia, likely secondary to above Normocytic, normochromic anemia Severe hypokalemia, replaced Hypertension History of hyperlipidemia COPD, not currently in exacerbation Current ongoing tobacco dependence History of frequent falls Urinary retention, straight cath x 1 Plan: A pulmonary consult was placed chiefly for patient's rib fractures Patient's medications, labs, imaging reviewed Currently on room air Encourage incentive spirometer and pulmonary toileting Give dose of Keppra, obtain EEG, update neurology Seizure precautions Add CIWA protocol Add thiamine supplementation Monitor and replace electrolytes per protocol Continue Cardizem at 10 mg/h, currently with better controlled ventricular response Decision for systemic anticoagulation deferred to cardiology We will also continue to follow I have personally seen and examined the patient, performed the documentation and the assessment and plan as written. Number of minutes spent on the visit:20 Time with Patient: Greater than 30
[2024-06-19 02:58] LABS: African American GFR (CKD) >90 (>60 ml/min/1.73 sqM); Anion Gap 6 mmol/L; Blood Urea Nitrogen 13 mg/dL (7-17); Carbon Dioxide 24 mmol/L (22-30); Chloride 103 mmol/L (98-107); Glucose 120 mg/dL (74-99); Non-African American GFR(CKD) >90 (>60 ml/min/1.73 sqM); Sodium 133 mmol/L (137-145)
[2024-06-19 03:01] LABS: Potassium 2.6 mmol/L (3.5-5.1)
[2024-06-19] MEDS ORDERED: Potassium Replacement Protocol 1 EACH MISC MISCELLANE PRN (03:05)
[2024-06-19] MEDS: POTASSIUM CHLORIDE ER 20 MEQ TAB.ER PO SCH (03:36)
[2024-06-19] MEDS: ACETAMINOPHEN TAB 325 MG TAB PO PRN (03:37)
[2024-06-19] MEDS: levETIRAcetam 500 MG TAB PO SCH (08:23)
[2024-06-19] MEDS: POTASSIUM CHLORIDE ER 20 MEQ TAB.ER PO STA ×2 (08:35→16:28)
[2024-06-19] MEDS: SODIUM CHLORIDE 0.9% 1,000 ML IV ONE (08:36)
[2024-06-19] MEDS: METOPROLOL SUCCINATE (ER) 25 MG TAB.ER.24H PO SCH (10:05)
--- NOTE | 2024-06-19 10:07 | P.CRDCN ---
History of Present Illness History of present illness: HISTORY OF PRESENT ILLNESS: This is a 68-year-old female with a past medical history significant for hypertension, hyperlipidemia, COPD, nicotine dependence, and alcohol abuse. 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 We have been asked to see the patient in consultation for atrial fibrillation. Patient examined at the bedside in the ER. Patient was brought to the hospital due to altered mental status. Per nursing, patient was apparently found at home using unknown substances. Patient is awake and alert but she is confused and unable to answer any questions appropriately. Patient was found to be in afib with RVR. She was started on IV Cardizem. She has since converted to sinus mechanism and is maintaining sinus mechanism this morning. DIAGNOSTICS: - EKG reveals afib with rvr. Telemetry reveals sinus mechanism. - Laboratory data: WBC 8.30. Hemoglobin 10.1. Platelet count 91. Sodium 132. Potassium 2.5. BUN 17. Creatinine 0.62. Lactic acid 3.0. AST 60. ALT 24. Troponin 0.261. Creatinine kinase 485. - Current home cardiac medications include Lipitor 40 mg at night, Plavix 75 mg daily, lisinopril 10 mg daily. REVIEW OF SYSTEMS: At the time of my exam: Unable to obtain ROS secondary to altered mental status PHYSICAL EXAM: VITAL SIGNS: Reviewed. GENERAL: Well-developed in no acute distress. HEENT: Head is normocephalic. Pupils are equal, round. Sclerae anicteric. Mucous membranes of the mouth are moist. Neck supple. No JVD or thyromegaly LUNGS: Respirations even and unlabored. Lungs essentially clear to auscultation bilaterally. HEART: Regular rate and rhythm. S1 and S2 heard. ABDOMEN: Soft. Nondistended. Nontender. EXTREMITIES: Normal range of motion. No clubbing or cyanosis. Peripheral pulses intact. No lower extremity edema NEUROLOGIC: Awake and alert. Confused. ASSESSMENT: New onset atrial fibrillation with RVR, currently maintaining SR Altered mental status Acute febrile illness Acute/subacute rib fractures Acute L1 vertebral compression fracture Hypokalemia Elevated troponins, likely type II SC secondary to oxygen supply/demand mismatch History of alcohol abuse History of polysubstance abuse History of liver cirrhosis History of hepatitis C Hypertension Hyperlipidemia History of COPD Nicotine dependence Marijuana use PLAN: Obtain 2D echo to assess cardiac structure and function Check TSH Obtain additional troponin level Continue telemetry monitoring Begin metoprolol succinate 12.5mg daily Hold off on anticoagulation at this time. Patient may not be a good candidate for anticoagulation. Await recommendations from neurology. Recommend abstinence from alcohol Recommend cessation from polysubstance abuse Further recommendations pending patient course Nurse practitioner note has been reviewed by physician. Signing provider agrees with the documented findings, assessment, and plan of care documented by QUALITY ASSURANCE AUDITOR as a scribe. Past Medical History Past Medical History: Asthma, CVA/TIA, GERD/Reflux, Liver Disease, Osteoarthritis (OA) Additional Past Medical History / Comment(s): ELEVATED LIVER ENZYMES., HX OF PERFORATED STOMACH ULCER., sister states patient has HEPATITIS C, epigastric pain, recent admission for taking too much tylenol pm per pt. Etoh withdrawal seizures History of Any Multi-Drug Resistant Organisms: None Reported Past Surgical History: Hernia Repair, Tubal Ligation Additional Past Surgical History / Comment(s): PLASTIC SURGERY TO FOREHEAD, PERFORATED STOMACH ULCER. laser surgery to right leg for varicose veins Past Anesthesia/Blood Transfusion Reactions: No Reported Reaction Past Psychological History: ADD/ADHD, Anxiety, Depression Smoking Status: Current every day smoker Past Alcohol Use History: Daily, Heavy Past Drug Use History: Marijuana, Methamphetamine, Prescription Drug Abuse - Past Family History Mother Family Medical History: Cancer Additional Family Medical History / Comment(s): OVARIAN CA Father History Unknown: Yes Additional Family Medical History / Comment(s): father when patient was very young (2 year old), he of a gunshot wound outside of a bar at the age of 23 Medications and Allergies Home Medications Medication Instructions Recorded Confirmed Type Atorvastatin [Lipitor] 40 mg PO HS 08/24/21 06/18/24 History Clopidogrel [Plavix] 75 mg PO DAILY 08/24/21 06/18/24 History Escitalopram [Lexapro] 20 mg PO DAILY 08/24/21 06/18/24 History QUEtiapine [SEROquel] 25 mg PO HS 08/24/21 06/18/24 History rOPINIRole HCL [Requip] 1 mg PO BID 08/24/21 06/18/24 History Ergocalciferol [Vitamin D2 (1250 1,250 mcg PO WEEKLY 06/14/24 06/18/24 History Mcg = 01060 Iu)] levETIRAcetam [Keppra] 2,000 mg PO Q12HR 06/14/24 06/18/24 History lisinopriL [Zestril] 10 mg PO DAILY 06/14/24 06/18/24 History Allergies Allergy/AdvReac Type Severity Reaction Status Date / Time No Known Allergies Allergy Verified 06/18/24 19:53 Physical Exam Vitals: Vital Signs Temp Pulse Resp BP Pulse Ox 06/19/24 07:54 98 F 64 24 98/60 96 06/19/24 07:00 60 16 98/62 99 06/19/24 04:59 99.6 F 69 28 H 108/56 93 L 06/19/24 03:36 100.1 F H 06/19/24 02:37 75 17 107/61 97 06/19/24 00:11 100.1 F H 87 21 112/65 96 06/18/24 21:32 110 H 18 121/71 97 06/18/24 19:45 142 H 24 125/90 99 06/18/24 19:00 105 H 16 126/87 97 06/18/24 18:33 104 H 18 101/85 98 06/18/24 17:32 100.3 F H 105 H 20 100/69 98 Intake and Output 06/18/24 06/19/24 06/19/24 22:59 06:59 14:59 Intake Total 107.833 Output Total 800 Balance -692.167 Intake: Intake, IV Titration 107.833 Amount Diltiazem 125 mg In 107.833 Sodium Chloride 0.9% 100 ml @ 10 MG/HR 10 mls/hr IV .[id number] [facility] Rx#: [id number] Output: Urine 800 Other: Weight 68.039 kg Results 06/18/24 18:31 06/19/24 01:52 Cardiac Enzymes 06/18/24 06/18/24 Range/Units 18:31 18:31 AST 60 H (14-36) U/L Troponin I 0.261 H* (0.000-0.034) ng/mL Coagulation 06/18/24 Range/Units 18:31 PT 12.7 H (10.0-12.5) sec APTT 22.4 (22.0-30.0) sec CBC 06/18/24 Range/Units 18:31 WBC 8.30 (4.50-10.00) 10*3/uL RBC 3.23 L (4.10-5.20) 10*6/uL Hgb 10.1 L (12.0-15.0) g/dL Hct 27.7 L (37.2-46.3) % Plt Count 91 L (140-440) 10*3/uL Comprehensive Metabolic Panel 06/18/24 06/19/24 Range/Units 18:31 01:52 Sodium 132 L 133 L (137-145) mmol/L Potassium 2.5 L* 2.6 L* (3.5-5.1) mmol/L Chloride 98 103 (98-107) mmol/L Carbon Dioxide 24 24 (22-30) mmol/L BUN 17 13 (7-17) mg/dL Creatinine 0.62 0.50 L (0.52-1.04) mg/dL Glucose 103 H 120 H (74-99) mg/dL Calcium 8.5 8.0 L (8.4-10.2) mg/dL AST 60 H (14-36) U/L ALT 28 (4-34) U/L Alkaline Phosphatase 57 (38-126) U/L Total Protein 6.9 (6.3-8.2) g/dL Albumin 3.8 (3.5-5.0) g/dL Current Medications Generic Name Dose Route Start Last Admin Trade Name Freq PRN Reason Stop Dose Admin Acetaminophen 650 mg 06/19/24 03:24 06/19/24 03:37 Acetaminophen Tab 325 Mg Tab PO 650 mg Q6HR PRN Administration Fever and/ or Pain Diltiazem HCl 125 mg/ Sodium 125 mls @ 10 mls/hr 06/18/24 19:45 06/19/24 06:39 Chloride IV 5 mg/hr .[id number] KARTHIK 5 mls/hr Administration 10 MG/HR Levetiracetam 1,000 mg 06/19/24 09:00 Levetiracetam 500 Mg Tab PO BID KARTHIK Lorazepam 1 mg 06/19/24 01:25 Lorazepam 2 Mg/Ml Inj IV Q1HR PRN CIWA 10 to 15 Lorazepam 1 mg 06/19/24 01:25 Lorazepam 2 Mg/Ml Inj IV Q2HR PRN CIWA 8 or 9 Lorazepam 2 mg 06/19/24 01:25 Lorazepam 2 Mg/Ml Inj IV 06/21/24 01:25 Q10M PRN CIWA 16 or higher Miscellaneous Information 1 each 06/19/24 03:05 Potassium Replacement Protocol 1 Each Misc MISCELLANE DAILY PRN Per Protocol Protocol Naloxone HCl 0.2 mg 06/18/24 21:26 Naloxone 0.4 Mg/Ml 1 Ml Vial IV Q2M PRN Opioid Reversal Thiamine HCl 100 mg 06/20/24 09:00 Thiamine 100 Mg Tab PO DAILY KARTHIK Intake and Output 06/18/24 06/19/24 06/19/24 22:59 06:59 14:59 Intake Total 107.833 Output Total 800 Balance -692.167 Intake: Intake, IV Titration 107.833 Amount Diltiazem 125 mg In 107.833 Sodium Chloride 0.9% 100 ml @ 10 MG/HR 10 mls/hr IV .[id number] KARTHIK Rx#: [id number] Output: Urine 800 Other: Weight 68.039 kg 06/18/24 18:31 06/19/24 01:52
--- NOTE | 2024-06-19 10:33 | CA ---
Transthoracic Echo Report Name: Clara Marshall Age: 68 Gender: F : 1955 Exam Date: 06/19/2024 08:40 Exam Location: [facility] Ht (in): 65 Wt (lb): 150 Ordering Physician: Catalina Alegre Attending/Referring Phys: Body Work Auto Trimmer Martha Tijerina RDCS Procedure CPT: Indications: LV function, elevated troponins, tachycardia Cardiac Hx: Technical Quality: Good Contrast 1: Total Dose (mL): Contrast 2: Total Dose (mL): MEASUREMENTS (Male / Female) Normal Values 2D ECHO LV Diastolic Diameter PLAX 4.4 cm 4.2 - 5.9 / 3.9 - 5.3 cm LV Systolic Diameter PLAX 2.9 cm IVS Diastolic Thickness 1.1 cm 0.6 - 1.0 / 0.6 - 0.9 cm LVPW Diastolic Thickness 1.2 cm 0.6 - 1.0 / 0.6 - 0.9 cm LV Relative Wall Thickness 0.5 RV Internal Dim ED PLAX 2.6 cm LA Systolic Diameter LX 3.9 cm 3.0 - 4.0 / 2.7 - 3.8 cm LV Diastolic Volume MOD BP 58.2 cm??? 67 - 155 / 56 - 104 cm??? LV Systolic Volume MOD BP 20.5 cm??? 22 - 58 / 19 - 49 cm??? LV Ejection Fraction MOD BP 64.7 % >= 55 % LV Cardiac Index MOD BP 1526.2 cm???/min???m??? LV Diastolic Volume MOD 4C 59.4 cm??? LV Systolic Volume MOD 4C 19.4 cm??? LV Ejection Fraction MOD 4C 67.4 % LV Cardiac Index MOD 4C 1621.0 cm???/min???m??? LV Diastolic Length 4C 7.3 cm LV Systolic Length 4C 5.8 cm LV Diastolic Volume MOD 2C 55.0 cm??? LV Systolic Volume MOD 2C 20.0 cm??? LV Ejection Fraction MOD 2C 63.6 % LV Cardiac Index MOD 2C 1416.1 cm???/min???m??? LV Diastolic Length 2C 7.7 cm LV Systolic Length 2C 6.3 cm LA Volume 92.2 cm??? 18 - 58 / 22 - 52 cm??? LA Volume Index 51.9 cm???/m??? 16 - 28 cm???/m??? M-MODE Aortic Root Diameter MM 3.2 cm LA Systolic Diameter MM 4.9 cm LA Ao Ratio MM 1.5 AV Cusp Separation MM 1.9 cm DOPPLER MV Area PHT 2.4 cm??? Mitral E Point Velocity 91.9 cm/s Mitral A Point Velocity 99.9 cm/s Mitral E to A Ratio 0.9 MV Deceleration Time 313.9 ms TR Peak Velocity 264.7 cm/s TR Peak Gradient 28.0 mmHg Right Atrial Pressure 10.0 mmHg Pulmonary Artery Systolic Pressu 38.0 mmHg Right Ventricular Systolic Press 38.0 mmHg FINDINGS Left Ventricle Left ventricular ejection fraction is estimated at 60-65 %. Mildly increased septal wall thickness. Mildly increased posterior wall thickness. Left ventricular cavity size normal. Normal left ventricular systolic function with no obvious regional wall motion abnormalities. Right Ventricle Normal right ventricular size and function. Mild pulmonary hypertension. Right Atrium Mild right atrial dilatation. Left Atrium Moderate LA dilatation Mitral Valve Structurally normal mitral valve. Mild mitral regurgitation. No mitral stenosis. Aortic Valve Trileaflet aortic valve. Diffuse thickening (sclerosis) of the aortic valve cusps without reduced excursion. No aortic regurgitation. Tricuspid Valve Structurally normal tricuspid valve. No tricuspid stenosis. Mild tricuspid regurgitation. Pulmonic Valve Structurally normal pulmonic valve. No pulmonic stenosis. Mild pulmonic regurgitation. Pericardium No pericardial or pleural effusion. Aorta Normal size aortic root and proximal ascending aorta. CONCLUSIONS L EF 60 to 65% Mild concentric LVH No obvious regional wall motion abnormality Moderate LA dilatation Normal RV size and systolic function, RVSP estimated at 38 mmHg Mild mitral regurgitation, mild tricuspid regurgitation No prior echo to compare with in database Previewed by: Dr Fredis Jean-Baptiste (Electronically Signed) Final Date: 19 June 2024 10:32
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
[2024-06-19] MEDS: MAGNESIUM SULFATE-D5W PMX 1 GM in DEXTROSE/WATER 1 100ML.BAG IVPB SCH (16:38)
--- NOTE | 2024-06-19 18:18 | P.CONS ---
History of Present Illness - Reason for Consult Consult date: 06/19/24 - History of Present Illness History of present illness; Patient is a 68-year-old female with hypertension, seizures, depression, hyperlipidemia, history of CVA, alcohol use disorder, recreational drug use, hepatitis C, COPD, who presents with altered mental status and rib and vertebrae fracture. Patient is poor historian and cannot provide history. No family present. Multiple recent admissions. February, patient worked up for altered mental status, seizures, and possible encephalitis and was transferred to [facility] for continuous EEG monitoring. Also, she evaluated the emergency department on 06/14/24 after fall down the stairs. REVIEW OF SYSTEMS: Unable to fully assess due to encephalopathy. PHYSICAL EXAMINATION: Vitals reviewed GENERAL: Resting comfortably in bed. EYES: PERRL, no scleral injection or icterus. HENT: Normocephalic, multiple bruises on forehead, hearing grossly intact, dry m ucous membranes, dentures NECK: No tracheal deviation, full range of motion. CARDIOVASCULAR: S1 and S2 present. No murmurs, rubs, or gallops. PULMONARY: Chest is clear to auscultation, no wheezing, rhonchi, or crackles. ABDOMEN: Soft, nontender, nondistended. No palpable organomegaly. EXTREMITIES: No apparent cyanosis, clubbing. No pedal edema. NEUROLOGICAL: Alert and oriented x1 to person. Gross neurological examination with no apparent focal deficits. SKIN: Multiple excoriations on legs, multiple bruises Initial lab workup revealed hemoglobin 10.1, platelets 91, PT 12.7, INR 1.2, sodium 132, potassium 2.5, Mg 1.2, glucose 103, lactic acid 3.0 => 1.0, total bilirubin 2.6, AST 60, troponin 0.261, creatinine kinase 485, UA significant for cloudy appearance, trace protein, small blood, bilirubin 1+, hyaline casts urine drug screening findings of opioids and TCA and marijuana, serum alcohol 15 -EKG done in the ER independently interpreted showed A-fib RVR heart rate of 185, QTc 334, left axis deviation, no ST segment elevation or depression seen, no T-wave inversions seen. -CT abdomen pelvis with contrast interpreted with findings of acute/subacute fractures of the right anterior ribs 2 and 3, and posterior lateral left rib 11. Acute L1 vertebral body compression fracture 25% height loss no significant retropulsion or spinal canal or neural foraminal stenosis. Similar right upper lobe airspace opacities with superimposed not excluded. Nodular contour to the liver correlate for cirrhosis. CT head and neck with no acute intracranial process, nonspecific white matter changes, no evidence of cervical spinal fracture -Echocardiogram with EF 60 to 65% Assessment and plan Patient is a 68-year-old female with hypertension, seizures, depression, hyperlipidemia, history of CVA, alcohol use disorder, polysubstance abuse, hepatitis C, COPD, who presents with altered mental status and rib and vertebrae fracture. #Toxic encephalopathy, likely due to drug use, less likely fall vs Wernicke's encephalopathy vs subclinical seizure #Polysubstance abuse #History of seizures - Urine drug screening findings of opioids, TCA and marijuana, serum alcohol 15 - TSH WNL EEG ordered Neurology consulted #Alcohol dependence with withdrawal #Alcohol withdrawal seizures - CIWA protocol with Ativan IVP in place Daily thiamine and folic acid - Fall and seizure precautions monitor daily electrolytes -cardiac monitoring -social work program coordinator consult #A-fib RVR likely due to alcohol, new onset #Elevated troponin, likely type II ID secondary to oxygen supply/demand mismatch -continuous cardiac monitoring - echocardiogram reviewed - Begin metoprolol succinate 12.5mg daily - Poor candidate for anticoagulation, will hold off at this time. Cardiology consulted #Hypokalemia #Hyponatremia - Initial potassium 2.5, Mg 1.2 Given 100 mill mEq of potassium chloride - Given magnesium sulfate 3 g Monitor CMP #Bicytopenia, likely due to alcohol use #History of liver cirrhosis Hemoglobin 10.1, platelets 91 - Monitor CBC #Urinary retention Patient straight cathed - monitor ins and outs #Vertebral body compression fracture of L1 #Multiple rib fractures #Fall - Pain management Orthopedic surgery consulted Pulmonology consulted Chronic Medical Conditions #Seizures #Depression #Hyperlipidemia #Hypertension - Resume home medications F: P.o. E: Replete as needed N: Heart healthy diet Code status: Full code Follow up CBC and CMP in AM Dictation was produced using [employer] dictation software. Please excuse any grammatical, word or spelling errors. Past Medical History Past Medical History: Asthma, CVA/TIA, GERD/Reflux, Liver Disease, O steoarthritis (OA) Additional Past Medical History / Comment(s): ELEVATED LIVER ENZYMES., HX OF PERFORATED STOMACH ULCER., sister states patient has HEPATITIS C, epigastric pa in, recent admission for taking too much tylenol pm per pt. Etoh withdrawal seizures History of Any Multi-Drug Resistant Organisms: None Reported Past Surgical History: Hernia Repair, Tubal Ligation Additional Past Surgical History / Comment(s): PLASTIC SURGERY TO FOREHEAD, PERFORATED STOMACH ULCER. laser surgery to right leg for varicose veins Past Anesthesia/Blood Transfusion Reactions: No Reported Reaction Past Psychological History: ADD/ADHD, Anxiety, Depression Smoking Status: Current every day smoker Past Alcohol Use History: Daily, Heavy Past Drug Use History: Marijuana, Methamphetamine, Prescription Drug Abuse - Past Family History Mother Family Medical History: Cancer Additional Family Medical History / Comment(s): OVARIAN CA Father History Unknown: Yes Additional Family Medical History / Comment(s): father when patient was very young (2 year old), he of a gunshot wound outside of a bar at the age of 23 Medications and Allergies Home Medications Medication Instructions Recorded Confirmed Type Atorvastatin [Lipitor] 40 mg PO HS 08/24/21 06/18/24 History Clopidogrel [Plavix] 75 mg PO DAILY 08/24/21 06/18/24 History Escitalopram [Lexapro] 20 mg PO DAILY 08/24/21 06/18/24 History QUEtiapine [SEROquel] 25 mg PO HS 08/24/21 06/18/24 History rOPINIRole HCL [Requip] 1 mg PO BID 08/24/21 06/18/24 History Ergocalciferol [Vitamin D2 (1250 1,250 mcg PO WEEKLY 06/14/24 06/18/24 History Mcg = 30108 Iu)] levETIRAcetam [Keppra] 2,000 mg PO Q12HR 06/14/24 06/18/24 History lisinopriL [Zestril] 10 mg PO DAILY 06/14/24 06/18/24 History Allergies Allergy/AdvReac Type Severity Reaction Status Date / Time No Known Allergies Allergy Verified 06/18/24 19:53 Physical Exam Vitals: Vital Signs Temp Pulse Resp BP Pulse Ox 06/19/24 07:54 98 F 64 24 98/60 96 06/19/24 07:00 60 16 98/62 99 06/19/24 04:59 99.6 F 69 28 H 108/56 93 L 06/19/24 03:36 100.1 F H 06/19/24 02:37 75 17 107/61 97 06/19/24 00:11 100.1 F H 87 21 112/65 96 06/18/24 21:32 110 H 18 121/71 97 06/18/24 19:45 142 H 24 125/90 99 06/18/24 19:00 105 H 16 126/87 97 06/18/24 18:33 104 H 18 101/85 98 06/18/24 17:32 100.3 F H 105 H 20 100/69 98 Intake and Output 06/18/24 06/19/24 06/19/24 22:59 06:59 14:59 Intake Total 107.833 Output Total 800 Balance -692.167 Intake: Intake, IV Titration 107.833 Amount Diltiazem 125 mg In 107.833 Sodium Chloride 0.9% 100 ml @ 10 MG/HR 10 mls/hr IV .[id number] [facility] Rx#: [id number] Output: Urine 800 Other: Weight 68.039 kg Results CBC & Chem 7: 06/18/24 18:31 06/19/24 14:57 Labs: Abnormal Lab Results - Last 24 Hours (Table) 06/18/24 06/18/24 06/18/24 Range/Units 18:31 18:31 18:31 RBC 3.23 L (4.10-5.20) 10*6/uL Hgb 10.1 L (12.0-15.0) g/dL Hct 27.7 L (37.2-46.3) % Plt Count 91 L (140-440) 10*3/uL Eosinophils # 0.01 L (0.04-0.35) 10*3/uL PT (10.0-12.5) sec INR (<1.2) Sodium 132 L (137-145) mmol/L Potassium 2.5 L* (3.5-5.1) mmol/L Creatinine (0.52-1.04) mg/dL Glucose 103 H (74-99) mg/dL Plasma Lactic Acid Al (0.7-2.0) mmol/L Calcium (8.4-10.2) mg/dL Total Bilirubin 2.6 H (0.2-1.3) mg/dL AST 60 H (14-36) U/L Creatine Kinase (30-135) U/L Troponin I (0.000-0.034) ng/mL Urine Appearance (Clear) Urine Protein (Negative) Urine Blood (Negative) Urine Bilirubin (Negative) Urine Bacteria (None) /hpf Hyaline Casts (0-2) /lpf Urine Mucus (None) /hpf Urine Opiates Screen Detected H (NotDetected) U Tricyclic Antidepress Detected H (NotDetected) U Marijuana (THC) Screen Detected H (NotDetected) 06/18/24 06/18/24 06/18/24 Range/Units 18:31 18:31 18:31 RBC (4.10-5.20) 10*6/uL Hgb (12.0-15.0) g/dL Hct (37.2-46.3) % Plt Count (140-440) 10*3/uL Eosinophils # (0.04-0.35) 10*3/uL PT 12.7 H (10.0-12.5) sec INR 1.2 H (<1.2) Sodium (137-145) mmol/L Potassium (3.5-5.1) mmol/L Creatinine (0.52-1.04) mg/dL Glucose (74-99) mg/dL Plasma Lactic Acid Al 3.0 H* (0.7-2.0) mmol/L Calcium (8.4-10.2) mg/dL Total Bilirubin (0.2-1.3) mg/dL AST (14-36) U/L Creatine Kinase (30-135) U/L Troponin I (0.000-0.034) ng/mL Urine Appearance Cloudy H (Clear) Urine Protein Trace H (Negative) Urine Blood Small H (Negative) Urine Bilirubin 1+ H (Negative) Urine Bacteria Rare H (None) /hpf Hyaline Casts 18 H (0-2) /lpf Urine Mucus Rare H (None) /hpf Urine Opiates Screen (NotDetected) U Tricyclic Antidepress (NotDetected) U Marijuana (THC) Screen (NotDetected) 06/18/24 06/18/24 06/19/24 Range/Units 18:31 19:06 01:52 RBC (4.10-5.20) 10*6/uL Hgb (12.0-15.0) g/dL Hct (37.2-46.3) % Plt Count (140-440) 10*3/uL Eosinophils # (0.04-0.35) 10*3/uL PT (10.0-12.5) sec INR (<1.2) Sodium 133 L (137-145) mmol/L Potassium 2.6 L* (3.5-5.1) mmol/L Creatinine 0.50 L (0.52-1.04) mg/dL Glucose 120 H (74-99) mg/dL Plasma Lactic Acid Al (0.7-2.0) mmol/L Calcium 8.0 L (8.4-10.2) mg/dL Total Bilirubin (0.2-1.3) mg/dL AST (14-36) U/L Creatine Kinase 485 H (30-135) U/L Troponin I 0.261 H* (0.000-0.034) ng/mL Urine Appearance (Clear) Urine Protein (Negative) Urine Blood (Negative) Urine Bilirubin (Negative) Urine Bacteria (None) /hpf Hyaline Casts (0-2) /lpf Urine Mucus (None) /hpf Urine Opiates Screen (NotDetected) U Tricyclic Antidepress (NotDetected) U Marijuana (THC) Screen (NotDetected)
[2024-06-19] MEDS: THIAMINE 100 MG TAB PO SCH (18:46)
[2024-06-19] MEDS: Lacosamide IV (ages 17+ yrs) 200 MG/20 ML ML IVP SCH (18:53)
[2024-06-19] MEDS: FAMOTIDINE 20 MG TAB PO SCH (19:44)
[2024-06-19] MEDS: AMPICILLIN-SULBACTAM 1.5 GM in SODIUM CHLORIDE 0.9% 50 ML IVPB SCH (20:09)
[2024-06-19] MEDS: LORazepam 1 MG/0.5 ML VIAL IV PRN (21:21)
--- NOTE | 2024-06-19 22:12 | EEG ---
ELECTROENCEPHALOGRAM REPORT PREAMBLE: This is a 68-year-old female with history of seizure disorder, came to the hospital after a fall, and also increased confusion. CURRENT MEDICATIONS: 1. Keppra. 2. Ativan. 3. Potassium. EEG FINDINGS: This is a 21-channel digital EEG recorded with video component, utilizing 10/20 international system with referential and bipolar montages. The recording starts and continues with presence of continuous, periodic lateralized epileptiform discharges over the left hemispheric region at 1 hertz. The epileptiform activity consists of spike/polyspike and a slow wave at 1 hertz. The background in the right hemispheric region consists of diffuse moderate amplitude mixed delta and theta activity seen in the right hemispheric region. No obvious electrographic seizure was otherwise recorded. IMPRESSION: Abnormal EEG due to, 1. Continuous, periodic lateralized epileptiform discharges involving the left hemispheric region, suggestive of focal neuronal dysfunction with underlying cortical irritability and tendency for seizures. 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 2. Background slowing of moderate to severe degree, suggestive of generalized cerebral dysfunction as can be seen with toxic metabolic encephalopathy, or related to diffuse structural brain abnormality. Clinical correlation is strongly recommended. Followup EEG and continuous EEG monitoring recommended. MMODL / IJN: [id number] / MTDD
[2024-06-20] MEDS: LORazepam 1 MG/0.5 ML VIAL IV PRN ×2 (00:28→01:35)
[2024-06-20] MEDS: HALOPERIDOL LACTATE 5 MG/ML 1 ML VIAL IM PRN (00:45)
[2024-06-20 06:53] LABS: Basophils # (A) 0.01 10*3/uL (0.00-0.10); Basophils % (A) 0.2 %; Eosinophils # (A) 0.02 10*3/uL (0.04-0.35); Eosinophils % (A) 0.4 %; HCT 25.7 % (37.2-46.3); Immature Platelet Fraction 7.3 % (1.1-6.1); Lymphocytes # (A) 1.25 10*3/uL (0.90-5.00); MCH 30.1 pg (27.0-32.0); MCHC 33.5 g/dL (32.0-37.0); MCV 89.9 fL (80.0-97.0); Monocytes # (A) 0.37 10*3/uL (0.20-1.00); Monocytes % (A) 8.3 %; Neutrophils % (A) 62.9 %; RBC 2.86 10*6/uL (4.10-5.20); WBC 4.46 10*3/uL (4.50-10.00)
[2024-06-20 07:07] LABS: HGB 8.6 g/dL (12.0-15.0)
[2024-06-20 07:08] LABS: Platelet Count 80 10*3/uL (140-440)
[2024-06-20 07:15] LABS: African American GFR (CKD) >90 (>60 ml/min/1.73 sqM); Anion Gap 4 mmol/L; Blood Urea Nitrogen 8 mg/dL (7-17); Calcium 8.3 mg/dL (8.4-10.2); Carbon Dioxide 23 mmol/L (22-30); Chloride 107 mmol/L (98-107); Glucose 95 mg/dL (74-99); Magnesium 1.6 mg/dL (1.6-2.3); Non-African American GFR(CKD) >90 (>60 ml/min/1.73 sqM); Potassium 3.6 mmol/L (3.5-5.1); Sodium 134 mmol/L (137-145)
--- NOTE | 2024-06-20 07:20 | P.CNNES ---
History of Present Illness Consult date: 06/19/24 Requesting physician: Ruddy Quispe Reason for Consult: Altered mental status History of Present Illness: Patient is a 68-year-old female came to the hospital yesterday at 5:15 PM for altered mental status. Patient is extremely confused, not able to provide any history. Patient states "I have been sick for 1 month for quite a while". Patient states "I have not seen DrRachana for a long time". Patient states "I have not seen you in a long time". Patient then perseverates on the same statements. She then starts mumbling and talking gibberish speech. Patient randomly states states is like "it's a long time November". On asking patient where she is at, patient states "November". I spoke to patient's nurse, who states that patient has history of substance abuse. She does have history of abusing meth and prescription drugs in the past. Vital signs on arrival blood pressure 100/69, pulse rate 105, temperature 100.3. Patient's temperature has been high. Blood test shows normal WBC hemoglobin 10.1, platelets 91. INR 1.2. Sodium 132 potassium 2.5, normal renal functions. Lactate 3.0. AST 60, ALT 28. Troponin was mildly elevated 0.261. UA is negative. Urine drug screen positive for opiates, tricyclic and marijuana. Blood alcohol level is 15 which is borderline. CK is 485. CT of chest abdomen pelvis showed acute/subacute fractures of the right anterior ribs 2 and 3 and posterior lateral left rib 11. Acute L1 vertebral body compression fracture 25% height loss, no significant retropulsion or spinal canal or neural foraminal stenosis. Similar right upper lobe airspace opacities with superimposed not excluded. Nodular contour to the liver correlate for cirrhosis. EKG showed atrial fibrillation with rapid ventricular rate. CT head showed no acute intracranial process. Nonspecific white matter changes, likely secondary to chronic small vessel ischemic disease. I personally reviewed CT head, agree with the findings. CT of the cervical spine showed no evidence of cervical spine fracture. Moderate multilevel degenerative disc disease. Repeat EKG again showed atrial fibrillation. Patient has been seen by myself on 03/14/2023 for for encephalopathy, which was fe lt to be related to either substance abuse versus hepatic encephalopathy. Patient was also seen by Dr. Bigg Michele on 02/14/2024 for confusion, nonsensical speech. Patient's EEG showed frequent discharges over the left temporal. Patient was loaded with Vimpat in addition to her home dose of Keppra and Depakote. Patient was transferred to [facility] for continuous EEG monitoring. Dr. Michele has impression that patient has history of possible seizure disorder, alcohol abuse, history of polysubstance abuse who came to the hospital with altered mental status. Review of Systems ROS unobtainable: due to mental status Past Medical History Past Medical History: Asthma, CVA/TIA, GERD/Reflux, Liver Disease, Osteoarthritis (OA) Additional Past Medical History / Comment(s): ELEVATED LIVER ENZYMES., HX OF PERFORATED STOMACH ULCER., sister states patient has HEPATITIS C, epigastric pain, recent admission for taking too much tylenol pm per pt. Etoh withdrawal seizures History of Any Multi-Drug Resistant Organisms: None Reported Past Surgical History: Hernia Repair, Tubal Ligation Additional Past Surgical History / Comment(s): PLASTIC SURGERY TO FOREHEAD, PERFORATED STOMACH ULCER. laser surgery to right leg for varicose veins Past Anesthesia/Blood Transfusion Reactions: No Reported Reaction Past Psychological History: ADD/ADHD, Anxiety, Depression Smoking Status: Current every day smoker Past Alcohol Use History: Daily, Heavy Past Drug Use History: Marijuana, Methamphetamine, Prescription Drug Abuse - Past Family History Mother Family Medical History: Cancer Additional Family Medical History / Comment(s): OVARIAN CA Father History Unknown: Yes Additional Family Medical History / Comment(s): father when patient was very young (2 year old), he of a gunshot wound outside of a bar at the age of 23 Medications and Allergies Home Medications Medication Instructions Recorded Confirmed Type Atorvastatin [Lipitor] 40 mg PO HS 08/24/21 06/18/24 History Clopidogrel [Plavix] 75 mg PO DAILY 08/24/21 06/18/24 History Escitalopram [Lexapro] 20 mg PO DAILY 08/24/21 06/18/24 History QUEtiapine [SEROquel] 25 mg PO HS 08/24/21 06/18/24 History rOPINIRole HCL [Requip] 1 mg PO BID 08/24/21 06/18/24 History Ergocalciferol [Vitamin D2 (1250 1,250 mcg PO WEEKLY 06/14/24 06/18/24 History Mcg = [id number] Iu)] levETIRAcetam [Keppra] 2,000 mg PO Q12HR 06/14/24 06/18/24 History lisinopriL [Zestril] 10 mg PO DAILY 06/14/24 06/18/24 History Allergies Allergy/AdvReac Type Severity Reaction Status Date / Time No Known Allergies Allergy Verified 06/18/24 19:53 Physical Examination - Vital Signs Vital Signs: Vital Signs Temp Pulse Resp BP Pulse Ox 06/19/24 13:45 65 16 104/65 96 06/19/24 13:00 68 16 105/68 98 06/19/24 11:48 61 24 105/71 99 06/19/24 10:00 98.8 F 70 20 104/65 96 06/19/24 09:00 68 16 98/60 96 06/19/24 07:54 98 F 64 24 98/60 96 06/19/24 07:00 60 16 98/62 99 06/19/24 04:59 99.6 F 69 28 H 108/56 93 L 06/19/24 03:36 100.1 F H 06/19/24 02:37 75 17 107/61 97 06/19/24 00:11 100.1 F H 87 21 112/65 96 06/18/24 21:32 110 H 18 121/71 97 06/18/24 19:45 142 H 24 125/90 99 06/18/24 19:00 105 H 16 126/87 97 06/18/24 18:33 104 H 18 101/85 98 06/18/24 17:32 100.3 F H 105 H 20 100/69 98 Intake and Output 06/19/24 06/19/24 06/19/24 06:59 14:59 22:59 Intake Total 107.833 Output Total 800 Balance -692.167 Intake: Intake, IV Titration 107.833 Amount Diltiazem 125 mg In 107.833 Sodium Chloride 0.9% 100 ml @ 10 MG/HR 10 mls/hr IV .[id number] [facility] Rx#: [id number] Output: Urine 800 Patient is an elderly female, who is laying in the bed, in no acute distress. No obvious seizure-like activity noted. Patient is very pleasant but confused. Patient is alert awake, but very disoriented. Patient is very confused. Patient sometimes speaks clearly but then she starts talking gibberish. S ometimes she is talks garbled speech, sometimes halting speech and then mumbles to herself. Patient able to name "ink pen, glasses", but for knuckles patient said "11". Patient cannot repeat. She starts talking gibberish, saying "December". Patient sometimes states clear sentences like "I have been sick for 1 month, for quite a while". She said "I have not seen you for a long time". On asking the year, patient says "last month". Patient at times have fluent aphasia. Attention, concentration and fund of knowledge are all severely limited. Patient has significant bruises over her right knee, and some in her upper arm. She had slight laceration underneath her left side of the chin. On cranial nerve examination, pupils are equal, round and reacting to light, visual biswas are full on confrontation, but difficult to assess. Patient would move her eyes to the correct side of my hand movement, but would say random numbers like "11, 12, 13" Extraocular muscles are intact with no nystagmus. Face is symmetric, tongue protrudes to the midline. Palatal elevation and sensation normal, hearing appears to be decreased and shoulder shrug normal, facial sensation normal. On muscle strength testing, patient acted very strange. While checking for the ski maker wood, patient squeeze my hand very well, but she extended her right arm straight forwards, extended her hand, and then brought her arm up and would not make a ski maker wood with the right hand. However on multiple attempts, it appears patient is very strong in the arms and legs. No focal weakness. Deep tendon reflexes are symmetric but hypoactive and plantars are flat. Sensory to touch is equal with no neglect on double simultaneous stimulation. Cerebellar function cannot be tested, as she could not follow directions.. Tone and bulk of muscles normal. Gait deferred.. On general examination, there is no carotid bruit or murmur, S1-S2 audible. Chest is clear on consultation. Abdomen is soft nontender. No organomegaly, bowel sounds present. Peripheral pulses are present. No peripheral edema. Results - Laboratory Findings CBC and BMP: 06/18/24 18:31 06/19/24 14:57 Abnormal Lab Findings: Abnormal Labs 06/18/24 06/18/24 06/18/24 18:31 18:31 18:31 RBC 3.23 L Hgb 10.1 L Hct 27.7 L Plt Count 91 L Eosinophils # 0.01 L PT INR Sodium 132 L Potassium 2.5 L* Creatinine Glucose 103 H Plasma Lactic Acid Al Calcium Magnesium Total Bilirubin 2.6 H AST 60 H Creatine Kinase Troponin I Urine Appearance Urine Protein Urine Blood Urine Bilirubin Urine Bacteria Hyaline Casts Urine Mucus Urine Opiates Screen Detected H U Tricyclic Antidepress Detected H U Marijuana (THC) Screen Detected H 06/18/24 06/18/24 06/18/24 18:31 18:31 18:31 RBC Hgb Hct Plt Count Eosinophils # PT 12.7 H INR 1.2 H Sodium Potassium Creatinine Glucose Plasma Lactic Acid Al 3.0 H* Calcium Magnesium Total Bilirubin AST Creatine Kinase Troponin I Urine Appearance Cloudy H Urine Protein Trace H Urine Blood Small H Urine Bilirubin 1+ H Urine Bacteria Rare H Hyaline Casts 18 H Urine Mucus Rare H Urine Opiates Screen U Tricyclic Antidepress U Marijuana (THC) Screen 06/18/24 06/18/24 06/19/24 18:31 19:06 01:52 RBC Hgb Hct Plt Count Eosinophils # PT INR Sodium 133 L Potassium 2.6 L* Creatinine 0.50 L Glucose 120 H Plasma Lactic Acid Al Calcium 8.0 L Magnesium Total Bilirubin AST Creatine Kinase 485 H Troponin I 0.261 H* Urine Appearance Urine Protein Urine Blood Urine Bilirubin Urine Bacteria Hyaline Casts Urine Mucus Urine Opiates Screen U Tricyclic Antidepress U Marijuana (THC) Screen 06/19/24 06/19/24 06/19/24 08:58 10:39 14:57 RBC Hgb Hct Plt Count Eosinophils # PT INR Sodium Potassium 3.2 L Creatinine Glucose Plasma Lactic Acid Al Calcium Magnesium 1.2 L Total Bilirubin AST Creatine Kinase Troponin I 0.105 H* Urine Appearance Urine Protein Urine Blood Urine Bilirubin Urine Bacteria Hyaline Casts Urine Mucus Urine Opiates Screen U Tricyclic Antidepress U Marijuana (THC) Screen Assessment and Plan Assessment: * Altered mental status, likely due to metabolic encephalopathy. Rule out hep atic encephalopathy. * History of alcoholism, blood alcohol level borderline 15. * History of polysubstance abuse * Chronic tobacco use * History of seizure disorder * Severe hypokalemia * Hypomagnesemia * Recurrent falls * Acute L1 vertebral body compression fracture 25% height loss * Acute/subacute fractures of the right anterior ribs 2 and 3 and posterior- lateral left rib 11. * Atrial fibrillation with rapid ventricular rate * Possible hepatic cirrhosis noted on CT abdomen Plan: * EEG was performed today. It was severely abnormal due to presence of continuous, periodic lateralized epileptiform discharges at 1 Hz involving the left hemispheric region, suggestive of focal cortical neuronal dysfunction with underlying cortical irritability and tendency for seizures. Partial status epilepticus cannot be ruled out. Clinical correlation is recommended. Background slowing, suggestive of moderate to severe encephalopathy. Follow- up EEG and continuous EEG monitoring recommended. * Patient given a loading dose of Vimpat 200 mg twice a day. * Increase Keppra to 1500 mg twice a day. * Repeat prolonged EEG in the morning. * 2-D echo revealed normal LV EF 60-65%. Mild concentric LVH. No obvious regional wall motion abnormality. Moderate left atrial dilation. * Cardiology, pulmonary, orthopedic surgery also on board. * Neurology will follow. Thank you for the consult.
[2024-06-20] MEDS ORDERED: THIAMINE 100 MG TAB PO SCH (09:00)
--- NOTE | 2024-06-20 11:57 | P.PN ---
Subjective Progress Note Date: 06/20/24 History of present illness; Patient is a 68-year-old female with hypertension, seizures, depression, hyperl ipidemia, history of CVA, alcohol use disorder, recreational drug use, hepatitis C, COPD, who presents with altered mental status and rib and vertebrae fracture. Patient is poor historian and cannot provide history. No family present. Multiple recent admissions. February, patient worked up for altered mental status, seizures, and possible encephalitis and was transferred to [facility] for continuous EEG monitoring. Also, she evaluated the emergency department on 06/14/24 after fall down the stairs. 06/20/2024 Patient seen and examined at bedside. Remains lethargic, unable to fully assess mental capacity. Patient apparently A+O x 1 to nursing staff today. REVIEW OF SYSTEMS: Unable to fully assess due to encephalopathy. PHYSICAL EXAMINATION: Vitals reviewed GENERAL: Lethargic, no acute distress. HENT: Normocephalic, multiple bruises on forehead, dentures CARDIOVASCULAR: S1 and S2 present. No murmurs, rubs, or gallops. PULMONARY: Chest is clear to auscultation, no wheezing, rhonchi, or crackles. ABDOMEN: Soft, nontender, nondistended. No palpable organomegaly. EXTREMITIES: No apparent cyanosis, clubbing. No pedal edema. NEUROLOGICAL: Alert and oriented x1 to person. Gross neurological examination with no apparent focal deficits. SKIN: Multiple excoriations on legs, multiple bruises Today significant findings: LabsWBC 4.46, hemoglobin 8.6, sodium 134, potassium 3.6, creatinine 0.48, calcium 8.3, magnesium 1.6, procalcitonin 0.12 No new imaging Assessment and plan Patient is a 68-year-old female with hypertension, seizures, depression, hyperlipidemia, history of CVA, alcohol use disorder, polysubstance abuse, hepatitis C, COPD, who presents with altered mental status and rib and vertebrae fracture. #Toxic encephalopathy, likely due to drug use, less likely fall vs Wernicke's encephalopathy vs subclinical seizure #Polysubstance abuse #History of seizures - Initial urine drug screening findings of opioids, TCA and marijuana, serum alcohol 15 - TSH WNL EEG ordered Neurology consulted #Fever, possibly due to aspiration pneumonia #Mild leukopenia Tmax 100.3 F on admission, afebrile today Began Unasyn Monitor CBC #Alcohol dependence with withdrawal #Alcohol withdrawal seizures - CIWA protocol with Ativan IVP in place Daily thiamine and folic acid - Fall and seizure precautions monitor daily electrolytes - cardiac monitoring - hospital social worker consult #A-fib RVR likely due to alcohol, new onset #Elevated troponin, likely type II RI secondary to oxygen supply/demand mismatch - continuous cardiac monitoring - echocardiogram reviewed - Begin metoprolol succinate 12.5mg daily - Poor candidate for anticoagulation, will hold off at this time. Cardiology consulted #Bicytopenia, likely due to alcohol use #History of liver cirrhosis Hemoglobin 10.1, platelets 91 - Monitor CBC #Hypokalemia, resolved #Hyponatremia, improved #Hypomagnesemia, resolved - Initial potassium 2.5, Mg 1.2 Given 100 mill mEq of potassium chloride - Given magnesium sulfate 3 g Monitor CMP #Urinary retention Indwelling catheter - monitor ins and outs #Vertebral body compression fracture of L1 #Multiple rib fractures #Fall - Pain management Orthopedic surgery consulted Pulmonology consulted Chronic Medical Conditions #Seizures #Depression #Hyperlipidemia #Hypertension - Resume home medications F: P.o. E: Replete as needed N: Heart healthy diet Code status: Full code Follow up CBC and CMP in AM Dr. Parekh seen patient with resident, present during exam, and agreed with findings. Dictation was produced using [employer] dictation software. Please excuse any grammatical, word or spelling errors. Objective - Vital Signs Vital signs: Vital Signs Temp 98.9 F 06/19/24 19:39 Pulse 80 06/20/24 04:00 Resp 16 06/20/24 04:00 BP 109/71 06/20/24 04:00 Pulse Ox 99 06/20/24 04:00 FiO2 Intake & Output 06/19/24 06/20/24 06/20/24 18:59 06:59 18:59 Intake Total 540 Balance 540 Weight 68.039 kg 64.5 kg Intake: Oral 540 Other: Voiding Method Indwelling Catheter Indwelling Catheter - Labs CBC & Chem 7: 06/20/24 05:20 06/20/24 05:20 Labs: Abnormal Lab Results - Last 24 Hours (Table) 06/19/24 06/19/24 06/19/24 Range/Units 08:58 10:39 14:57 WBC (4.50-10.00) 10*3/uL RBC (4.10-5.20) 10*6/uL Hgb (12.0-15.0) g/dL Hct (37.2-46.3) % Plt Count (140-440) 10*3/uL Eosinophils # (0.04-0.35) 10*3/uL Immature Plt Fraction (1.1-6.1) % Sodium (137-145) mmol/L Potassium 3.2 L (3.5-5.1) mmol/L Creatinine (0.52-1.04) mg/dL Calcium (8.4-10.2) mg/dL Magnesium 1.2 L (1.6-2.3) mg/dL Troponin I 0.105 H* (0.000-0.034) ng/mL 06/20/24 06/20/24 Range/Units 05:20 05:20 WBC 4.46 L (4.50-10.00) 10*3/uL RBC 2.86 L (4.10-5.20) 10*6/uL Hgb 8.6 L D (12.0-15.0) g/dL Hct 25.7 L (37.2-46.3) % Plt Count 80 L (140-440) 10*3/uL Eosinophils # 0.02 L (0.04-0.35) 10*3/uL Immature Plt Fraction 7.3 H (1.1-6.1) % Sodium 134 L (137-145) mmol/L Potassium (3.5-5.1) mmol/L Creatinine 0.48 L (0.52-1.04) mg/dL Calcium 8.3 L (8.4-10.2) mg/dL Magnesium (1.6-2.3) mg/dL Troponin I (0.000-0.034) ng/mL
--- NOTE | 2024-06-20 12:52 | P.PN ---
Subjective Progress Note Date: 06/20/24 Principal diagnosis: Rib fracture. Patient is a 68-year-old female with past medical history significant for COPD, tobacco smoker, alcoholism, liver disease, hepatitis C, polysubstance abuse, seizure disorder. Currently, patient is altered and unable to provide useful information. No family present. Note that back in February, patient worked up for altered mental status, seizures, and possible encephalitis. She ended up being transferred to [facility] for continuous EEG monitoring. More recently, patient evaluated the emergency department on 06/14/24 after fall down the stairs. Patient presented back to the emergency department yesterday evening. Per the ER report noticed to be confused by family. Also, noted to have low-grade temps in the emergency department. Pulmonary consult was placed as the patient was found to have multiple rib fractures. CT of the chest, abdomen, pelvis with contrast showing acute/subacute fractures of the right anterior ribs 2 and 3 and posterior lateral left rib 11. Acute L1 vertebral compression fracture with 25% height loss, no significant retropulsion or spinal canal or neural for minimal stenosis. Similar right upper lobe airspace opacity. CT of the head and C-spine without contrast did not show any acute intracranial process. No evidence of cervical spine fracture. Nonspecific white matter changes, likely secondary to chronic small vessel ischemic disease. CBC: WBC count 8.3, hemoglobin 10.1, platelets 91,000. INR 1.2, APTT 22.4. CMP: Sodium 132, potassium 2.5, chloride 98, serum bicarb 24, BUN 17, creatinine 0.62, glucose 103. Normal saline infusing at 130 mL/h. Lactic 3 and down to 1. LFTs unremarkable. Total bilirubin 2.6. Troponin 0.26. Creatinine kidney is 485. Urinalysis fairly unremarkable. Negative leukocytes and nitrates. Urine toxicology screen positive for opiates, TCAs, and marijuana. Serum alcohol level 15. Patient currently being evaluated emergency department. According to nursing staff, experiencing some urinary retention with a total of 700 cc of urine found in the bladder with bladder ultrasound. Patient has been straight cathed x 1. She is currently awake with nonsensical speech pattern. Facial spasms or seizure activity and eye blinking. Terminated with one 1 mg Ativan IV push. History of seizures, maintained on Keppra on outpatient basis. Patient also previously noted to be in atrial fibrillation with rapid ventricular response, rate as high as 185 bpm. Previously loaded with 10 mg of IV Cardizem, and started on Cardizem which is infusing at 10 mg/h. Blood pressure is normotensive. No documented history of atrial fibrillation in EMR. As far as her pulmonary status, nonlabored breathing pattern. On room air. No crepitus or subcutaneous emphysema. No focal tenderness with palpation. Multiple bruising at various stages of healing. Chin laceration. Current vital signs: Temperature 100.1 F, heart rate 87 bpm, blood pressure 112/65 mmHg, nontachypneic, SpO2 reading 97% on room air. Progress note dated June 20, 2024. 68-year-old patient seen yesterday in consultation. She is seen today in room 352. She is awake and alert. No distress. She is on room air. She is getting saline at 20 cc an hour. She has a history of multiple medical problems including COPD, tobacco use, alcoholism, alcoholic liver disease, hepatitis C, polysubstance abuse, and seizure disorder. The patient was seen recently for bilateral rib fractures. Current laboratory data includes a white count of 4.5, hemoglobin 8.6, hematocrit 25.7, and a platelet count of 80,000. Sodium 134, potassium 3.6, chlorides 107, CO2 23, BUN 8, creatinine 0.48. Glucose is 95. Objective - Vital Signs Vital signs: Vital Signs Temp 97.1 F L 06/20/24 11:10 Pulse 80 06/20/24 11:10 Resp 16 06/20/24 11:10 BP 101/62 06/20/24 11:10 Pulse Ox 99 06/20/24 11:10 FiO2 Intake & Output 06/19/24 06/20/24 06/20/24 18:59 06:59 18:59 Intake Total 540 Balance 540 Weight 68.039 kg 64.5 kg Intake: Oral 540 Other: Voiding Method Indwelling Catheter Indwelling Catheter - Exam No acute distress, confused. No respiratory distress, currently on room air. HEENT examination is grossly unremarkable. Mucous membranes are moist. No oral lesions. Neck supple. Full range of motion. No adenopathy thyromegaly or neck vein distention. Cardiovascular examination reveals regular rhythm rate. S1-S2 normal. No S3 or S4. No discernible murmur noted. Lungs reveal clear breath sounds. Her sounds are equal bilaterally. No adventitious lung sounds including wheezes rhonchi or crackles. Abdomen soft bowel sounds are heard. No masses or tenderness. Extremities are intact. No cyanosis clubbing or edema. Skin is without rash or lesion. Neurologic examination is brief but nonfocal. - Labs CBC & Chem 7: 06/20/24 05:20 06/20/24 05:20 Labs: Abnormal Lab Results - Last 24 Hours (Table) 06/19/24 06/20/24 06/20/24 Range/Units 14:57 05:20 05:20 WBC 4.46 L (4.50-10.00) 10*3/uL RBC 2.86 L (4.10-5.20) 10*6/uL Hgb 8.6 L D (12.0-15.0) g/dL Hct 25.7 L (37.2-46.3) % Plt Count 80 L (140-440) 10*3/uL Eosinophils # 0.02 L (0.04-0.35) 10*3/uL Immature Plt Fraction 7.3 H (1.1-6.1) % Sodium 134 L (137-145) mmol/L Potassium 3.2 L (3.5-5.1) mmol/L Creatinine 0.48 L (0.52-1.04) mg/dL Calcium 8.3 L (8.4-10.2) mg/dL Assessment and Plan Assessment: Acute/subacute fractures involving right anterior ribs 2 and 3 and posterior lateral left rib 11. No pneumothoraces or pleural effusions. No pulmonary contusions. Persistent right upper lobe infiltrate, seen on previous chest x- rays dating back to 2019, underlying malignancy is not entirely excluded but felt to be less likely. Acute L1 vertebral compression fracture, with 25% height loss. Atrial fibrillation with rapid ventricular response. Elevated troponins, likely secondary to above and supply/demand mismatch. Acute febrile illness, without obvious infectious source identified. Altered mental status. Seizure disorder. Alcohol abuse. Polysubstance abuse, urine toxicology screen positive for opiates, TCAs, and marijuana. History of liver cirrhosis. History of hepatitis C. Chronic thrombocytopenia, likely secondary to above. Normocytic, normochromic anemia. Severe hypokalemia. Hypertension. History of hyperlipidemia. COPD, currently stable. Current ongoing tobacco dependence. History of frequent falls. Urinary retention. Plan: Plan dated June 20, 2024. The patient is doing about the same. Her pulmonary status is stable. She is on room air. She has bilateral rib fractures. All labs, x-rays, and medications are reviewed. We will continue to follow. Prognosis is guarded. Dictation was produced using [employer] software. Please excuse any grammatical, word or spelling errors. Time with Patient: Less than 30
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
--- NOTE | 2024-06-20 13:16 | P.PN ---
Subjective Progress Note Date: 06/20/24 SURGICAL PROGRESS NOTE CHIEF COMPLAINT: Altered mental status HISTORY OF PRESENT ILLNESS: Patient is on the cardiac floor. She is lethargic. Patient has received Haldol and Ativan during the night for her agitation and confusion. She has a bedside sitter. Pain appears to be controlled. Electrolytes are being replaced. Afebrile. WBC 4.46 Hgb 10.1 down to 8.6 platelets 80 magnesium 1.6 potassium 3.6 PHYSICAL EXAM: VITAL SIGNS: Reviewed. GENERAL: no acute distress. HEENT: Abrasion on her chin ABDOMEN: Soft. Nondistended. Nontender. NEUROLOGIC: Lethargic SKIN: Left upper arm bruising noted. Ecchymosis along the left hip and lower back. ASSESSMENT: 1. Fall 2. Acute/subacute fractures of right anterior ribs 2 and 3 and posterior lateral left rib 11 3. Acute L1 vertebral body compression fracture 4. Atrial fibrillation with rapid ventricular response 5. Altered mental status 6. History of alcohol abuse 7. Polysubstance abuse 8. Elevated troponins 9. Seizure disorder 10. History of liver cirrhosis 11. History of hepatitis C 12. Thrombocytopenia 13. Severe hypokalemia 14. Hypomagnesemia 15. Metabolic encephalopathy PLAN: - Patient seen evaluated by multiple consultants. Appreciate their recommendations. - Orthopedic service has ordered an LSO back brace and has cleared patient for discharge - Replace magnesium - DVT prophylaxis SCDs and GI prophylaxis Pepcid Physician Supervisor Files note has been reviewed by physician. Signing provider agrees with the documented findings, assessment, and plan of care. Objective - Vital Signs Vital signs: Vital Signs Temp 97.1 F L 06/20/24 11:10 Pulse 80 06/20/24 11:10 Resp 16 06/20/24 11:10 BP 101/62 06/20/24 11:10 Pulse Ox 99 06/20/24 11:10 FiO2 Intake & Output 06/19/24 06/20/24 06/20/24 18:59 06:59 18:59 Intake Total 540 Balance 540 Weight 68.039 kg 64.5 kg Intake: Oral 540 Other: Voiding Method Indwelling Catheter Indwelling Catheter - Labs CBC & Chem 7: 06/20/24 05:20 06/20/24 05:20 Labs: Abnormal Lab Results - Last 24 Hours (Table) 06/19/24 06/20/24 06/20/24 Range/Units 14:57 05:20 05:20 WBC 4.46 L (4.50-10.00) 10*3/uL RBC 2.86 L (4.10-5.20) 10*6/uL Hgb 8.6 L D (12.0-15.0) g/dL Hct 25.7 L (37.2-46.3) % Plt Count 80 L (140-440) 10*3/uL Eosinophils # 0.02 L (0.04-0.35) 10*3/uL Immature Plt Fraction 7.3 H (1.1-6.1) % Sodium 134 L (137-145) mmol/L Potassium 3.2 L (3.5-5.1) mmol/L Creatinine 0.48 L (0.52-1.04) mg/dL Calcium 8.3 L (8.4-10.2) mg/dL Microbiology - Last 24 Hours (Table) 06/19/24 01:52 Blood Culture - Preliminary Blood
--- NOTE | 2024-06-20 13:18 | P.PN ---
Subjective HISTORY OF PRESENT ILLNESS: This is a 68-year-old female with a past medical history significant for hypertension, hyperlipidemia, COPD, nicotine dependence, and alcohol abuse. Patient does not follow with a svp operations. We have been asked to see the patient in consultation for atrial fibrillation. Patient examined at the bedside in the ER. Patient was brought to the hospital due to altered mental status. Per nursing, patient was apparently found at home using unknown substances. Patient is awake and alert but she is confused and unable to answer any questions appropriately. Patient was found to be in afib with RVR. She was started on IV Cardizem. She has since converted to sinus mechanism and is maintaining sinus mechanism this morning. DIAGNOSTICS: - EKG reveals afib with rvr. Telemetry reveals sinus mechanism. - Laboratory data: WBC 8.30. Hemoglobin 10.1. Platelet count 91. Sodium 132. Potassium 2.5. BUN 17. Creatinine 0.62. Lactic acid 3.0. AST 60. ALT 24. Troponin 0.261. Creatinine kinase 485. - Current home cardiac medications include Lipitor 40 mg at night, Plavix 75 mg daily, lisinopril 10 mg daily. 06/20/2024 Patient examined this morning at the bedside. Patient has a corporate safety director present. Apparently she was combative last night and required restraints. She is currently lethargic at the time of examination. Telemetry reveals sinus mechanism. Echocardiogram completed revealing ejection fraction 60 to 65%, moderate concentric LVH, no obvious regional wall motion abnormalities, mild MR, and mild TR. patient underwent EEG revealing continuous periodic lateralized epileptiform discharges involving left hemispheric region suggestive of focal neuronal dysfunction with underlying cortical irritability and tendency for seizures background slowing of moderate to severe degree suggestive of gener alized cerebral dysfunction PHYSICAL EXAM: VITAL SIGNS: Reviewed. GENERAL: Well-developed in no acute distress. HEENT: Head is normocephalic. Pupils are equal, round. Sclerae anicteric. Mucous membranes of the mouth are moist. Neck supple. No JVD or thyromegaly LUNGS: Respirations even and unlabored. Lungs essentially clear to auscultation bilaterally. HEART: Regular rate and rhythm. S1 and S2 heard. EXTREMITIES: Normal range of motion. No clubbing or cyanosis. Peripheral pulses intact. No lower extremity edema ASSESSMENT: New onset atrial fibrillation with RVR, currently maintaining SR Altered mental status Acute febrile illness Abnormal EEG Acute/subacute rib fractures Acute L1 vertebral compression fracture Hypokalemia Elevated troponins, likely type II [place] secondary to oxygen supply/demand mismatch History of alcohol abuse History of polysubstance abuse History of liver cirrhosis History of hepatitis C Hypertension Hyperlipidemia History of COPD History of seizure disorder Nicotine dependence Marijuana use PLAN: Continue current cardiac medications Continue telemetry monitoring Hold off on anticoagulation at this time. Patient may not be a good candidate for anticoagulation due to frequent falls and altered mental status Recommend abstinence from alcohol Recommend cessation from polysubstance abuse Further recommendations pending patient course Nurse practitioner note has been reviewed by physician. Signing provider agrees with the documented findings, assessment, and plan of care documented by ROTARY FILTER OPERATOR as a scribe. Objective - Vital Signs Vital signs: Vital Signs Temp 98.9 F 06/19/24 19:39 Pulse 80 06/20/24 04:00 Resp 16 06/20/24 04:00 BP 109/71 06/20/24 04:00 Pulse Ox 99 06/20/24 04:00 FiO2 Intake & Output 06/19/24 06/20/24 06/20/24 18:59 06:59 18:59 Intake Total 540 Balance 540 Weight 68.039 kg 64.5 kg Intake: Oral 540 Other: Voiding Method Indwelling Catheter Indwelling Catheter - Labs CBC & Chem 7: 06/20/24 05:20 06/20/24 05:20 Labs: Abnormal Lab Results - Last 24 Hours (Table) 06/19/24 06/19/24 06/19/24 Range/Units 08:58 10:39 14:57 WBC (4.50-10.00) 10*3/uL RBC (4.10-5.20) 10*6/uL Hgb (12.0-15.0) g/dL Hct (37.2-46.3) % Plt Count (140-440) 10*3/uL Eosinophils # (0.04-0.35) 10*3/uL Immature Plt Fraction (1.1-6.1) % Sodium (137-145) mmol/L Potassium 3.2 L (3.5-5.1) mmol/L Creatinine (0.52-1.04) mg/dL Calcium (8.4-10.2) mg/dL Magnesium 1.2 L (1.6-2.3) mg/dL Troponin I 0.105 H* (0.000-0.034) ng/mL 06/20/24 06/20/24 Range/Units 05:20 05:20 WBC 4.46 L (4.50-10.00) 10*3/uL RBC 2.86 L (4.10-5.20) 10*6/uL Hgb 8.6 L D (12.0-15.0) g/dL Hct 25.7 L (37.2-46.3) % Plt Count 80 L (140-440) 10*3/uL Eosinophils # 0.02 L (0.04-0.35) 10*3/uL Immature Plt Fraction 7.3 H (1.1-6.1) % Sodium 134 L (137-145) mmol/L Potassium (3.5-5.1) mmol/L Creatinine 0.48 L (0.52-1.04) mg/dL Calcium 8.3 L (8.4-10.2) mg/dL Magnesium (1.6-2.3) mg/dL Troponin I (0.000-0.034) ng/mL
[2024-06-20] MEDS: MAGNESIUM SULFATE-D5W PMX 1 GM in DEXTROSE/WATER 1 100ML.BAG IVPB ONE (13:54)
[2024-06-20] MEDS: FOLIC ACID 1 MG TAB PO SCH (16:07)
[2024-06-20] MEDS: CLOPIDOGREL 75 MG TAB PO SCH (17:27)
[2024-06-20] MEDS: POTASSIUM CHLORIDE ER 20 MEQ TAB.ER PO STA (17:28)
[2024-06-20] MEDS: ESCITALOPRAM 20 MG TAB PO SCH (17:28)
[2024-06-20] MEDS: QUEtiapine 25 MG TAB PO SCH (20:19)
[2024-06-20] MEDS: ATORVASTATIN 40 MG TAB PO SCH (20:19)
[2024-06-21] MEDS: PHENYTOIN SODIUM INJ 1,200 MG in SODIUM CHLORIDE 0.9% 100 ML IVPB STA (00:16)
--- NOTE | 2024-06-21 01:51 | EEG ---
ELECTROENCEPHALOGRAM REPORT PREAMBLE: This is a 68-year-old female with abnormal EEG. The patient currently on Vimpat and Keppra. EEG FINDINGS: This is a 21-channel digital EEG recorded with video component, utilizing 10/20 international system with referential and bipolar montages. Background consists of poorly developed and regulated, mixed frequencies of low amplitude mixed theta, with some delta activity in bihemispheric region. These continuous, periodic, lateralized epileptiform discharges over the left hemispheric region almost at 1 hertz. No obvious electrographic seizure however was recorded. Some sleep spindles were also seen indicating superimposed sleep. Photic stimulation and hyperventilation were not done. IMPRESSION: This is an abnormal EEG due to: 1. Presence of periodic lateralized epileptiform discharges over the left hemispheric region at 1 hertz. This may suggest partial status. Clinical correlation is recommended. 2. Background slowing of [id number] degree, suggestive of encephalopathy. 3. When compared to the EEG from 06/19/2024, the amplitude of epileptiform activity has decreased (improved). Followup EEG and peripheral continuous EEG monitoring recommended. MMARPITL / RUSSELLN: [id number] / MTDD
[2024-06-21 05:42] LABS: Basophils # (A) 0.02 10*3/uL (0.00-0.10); Basophils % (A) 0.4 %; Eosinophils # (A) 0.09 10*3/uL (0.04-0.35); Eosinophils % (A) 1.7 %; HCT 28.4 % (37.2-46.3); HGB 9.3 g/dL (12.0-15.0); Lymphocytes # (A) 1.51 10*3/uL (0.90-5.00); Lymphocytes % (A) 28.1 %; MCH 29.8 pg (27.0-32.0); MCHC 32.7 g/dL (32.0-37.0); Mean Platelet Volume 11.3 fL (9.5-12.2); Monocytes # (A) 0.58 10*3/uL (0.20-1.00); Monocytes % (A) 10.8 %; Neutrophils # (A) 3.15 10*3/uL (1.80-7.70); Neutrophils % (A) 58.6 %; RBC 3.12 10*6/uL (4.10-5.20); RDW 16.6 % (11.5-14.5); WBC 5.37 10*3/uL (4.50-10.00)
[2024-06-21 05:53] LABS: Platelet Count 138 10*3/uL (140-440)
[2024-06-21 06:05] LABS: African American GFR (CKD) >90 (>60 ml/min/1.73 sqM); Anion Gap 5 mmol/L; Blood Urea Nitrogen 12 mg/dL (7-17); Calcium 8.4 mg/dL (8.4-10.2); Carbon Dioxide 22 mmol/L (22-30); Chloride 109 mmol/L (98-107); Glucose 97 mg/dL (74-99); Magnesium 1.4 mg/dL (1.6-2.3); Non-African American GFR(CKD) >90 (>60 ml/min/1.73 sqM); Potassium 4.2 mmol/L (3.5-5.1); Sodium 136 mmol/L (137-145)
--- NOTE | 2024-06-21 07:53 | P.PN ---
Subjective Progress Note Date: 06/20/24 Patient was seen for a follow-up. Patient just returned from EEG department after prolonged EEG. Per sitter, patient has been sleeping all day. Now just waking up. Patient's daughter also arrived, who notices that patient is doing better than yesterday. Patient denies headache. No new concerns. Objective - Vital Signs Vital signs: Vital Signs Temp 97.1 F L 06/20/24 11:10 Pulse 80 06/20/24 11:10 Resp 16 06/20/24 11:10 BP 101/62 06/20/24 11:10 Pulse Ox 99 06/20/24 11:10 FiO2 Intake & Output 06/19/24 06/20/24 06/20/24 18:59 06:59 18:59 Intake Total 540 Balance 540 Weight 68.039 kg 64.5 kg Intake: Oral 540 Other: Voiding Method Indwelling Catheter Indwelling Catheter - Exam Patient was sleeping, but starting to wake up. She states that the month is March and the year is . She is able to speak sentences more clearly but still mumbles at times. Muscle strength appears normal. - Labs CBC & Chem 7: 06/21/24 05:22 06/21/24 05:22 Labs: Abnormal Lab Results - Last 24 Hours (Table) 06/20/24 06/20/24 Range/Units 05:20 05:20 WBC 4.46 L (4.50-10.00) 10*3/uL RBC 2.86 L (4.10-5.20) 10*6/uL Hgb 8.6 L D (12.0-15.0) g/dL Hct 25.7 L (37.2-46.3) % Plt Count 80 L (140-440) 10*3/uL Eosinophils # 0.02 L (0.04-0.35) 10*3/uL Immature Plt Fraction 7.3 H (1.1-6.1) % Sodium 134 L (137-145) mmol/L Creatinine 0.48 L (0.52-1.04) mg/dL Calcium 8.3 L (8.4-10.2) mg/dL Microbiology - Last 24 Hours (Table) 06/19/24 01:52 Blood Culture - Preliminary Blood Assessment and Plan Assessment: * Altered mental status, likely due to partial status epilepticus versus metabolic encephalopathy. Rule out hepatic encephalopathy. * History of alcoholism, blood alcohol level borderline 15. * History of polysubstance abuse * Chronic tobacco use * History of seizure disorder * Severe hypokalemia * Hypomagnesemia * Recurrent falls * Acute L1 vertebral body compression fracture 25% height loss * Acute/subacute fractures of the right anterior ribs 2 and 3 and posterior- lateral left rib 11. * Atrial fibrillation with rapid ventricular rate * Possible hepatic cirrhosis noted on CT abdomen Plan: * Prolonged EEG today 06/20/2024 was again abnormal due to presence of periodic lateralized epileptiform discharges over the left hemispheric region at 1 Hz. Background slowing of moderate to severe degree, suggestive of encephalopathy. When compared to the EEG from 06/19/2024, the amplitude of the epileptiform activity has decreased (improved). Follow-up EEG and perhaps continuous EEG monitoring recommended. * Patient is doing clinically better. We will give full loading dose of Dilantin. Check Dilantin level in the morning. * Repeat routine EEG in the morning. * I spoke to patient's daughter, who mentioned that patient was transferred to [facility] after last admission in February 2024. They performed lumbar puncture on her. Patient had continuous EEG monitoring. Patient was d ischarged home in a cab. Patient's daughter was not satisfied with the disposition. * We will try to obtain records from [facility] from that admission. * Initial EEG 06/19/2024 was severely abnormal due to presence of continuous, periodic lateralized epileptiform discharges at 1 Hz involving the left hemispheric region, suggestive of focal cortical neuronal dysfunction with underlying cortical irritability and tendency for seizures. Partial status epilepticus cannot be ruled out. Clinical correlation is recommended. Background slowing, suggestive of moderate to severe encephalopathy. Follow- up EEG and continuous EEG monitoring recommended. * Continue Vimpat 200 mg twice a day. * Continue higher dose of Keppra 1500 mg twice a day (at home on Keppra 1000 g twice a day). * 2-D echo revealed normal LV EF 60-65%. Mild concentric LVH. No obvious regional wall motion abnormality. Moderate left atrial dilation. * Cardiology, pulmonary, orthopedic surgery also on board.
[2024-06-21] MEDS: MAGNESIUM SULFATE-D5W PMX 1 GM in DEXTROSE/WATER 1 100ML.BAG IVPB ONE (08:57)
--- NOTE | 2024-06-21 10:07 | P.PN ---
Subjective Progress Note Date: 06/21/24 Principal diagnosis: Rib fracture. Patient is a 68-year-old female with past medical history significant for COPD, tobacco smoker, alcoholism, liver disease, hepatitis C, polysubstance abuse, seizure disorder. Currently, patient is altered and unable to provide useful information. No family present. Note that back in February, patient worked up for altered mental status, seizures, and possible encephalitis. She ended up being transferred to [facility] for continuous EEG monitoring. More recently, patient evaluated the emergency department on 06/14/24 after fall down the stairs. Patient presented back to the emergency department yesterday evening. Per the ER report noticed to be confused by family. Also, noted to have low-grade temps in the emergency department. Pulmonary consult was placed as the patient was found to have multiple rib fractures. CT of the chest, abdomen, pelvis with contrast showing acute/subacute fractures of the right anterior ribs 2 and 3 and posterior lateral left rib 11. Acute L1 vertebral compression fracture with 25% height loss, no significant retropulsion or spinal canal or neural for minimal stenosis. Similar right upper lobe airspace opacity. CT of the head and C-spine without contrast did not show any acute intracranial process. No evidence of cervical spine fracture. Nonspecific white matter changes, likely secondary to chronic small vessel ischemic disease. CBC: WBC count 8.3, hemoglobin 10.1, platelets 91,000. INR 1.2, APTT 22.4. CMP: Sodium 132, potassium 2.5, chloride 98, serum bicarb 24, BUN 17, creatinine 0.62, glucose 103. Normal saline infusing at 130 mL/h. Lactic 3 and down to 1. LFTs unremarkable. Total bilirubin 2.6. Troponin 0.26. Creatinine kidney is 485. Urinalysis fairly unremarkable. Negative leukocytes and nitrates. Urine toxicology screen positive for opiates, TCAs, and marijuana. Serum alcohol level 15. Patient currently being evaluated emergency department. According to nursing staff, experiencing some urinary retention with a total of 700 cc of urine found in the bladder with bladder ultrasound. Patient has been straight cathed x 1. She is currently awake with nonsensical speech pattern. Facial spasms or seizure activity and eye blinking. Terminated with one 1 mg Ativan IV push. History of seizures, maintained on Keppra on outpatient basis. Patient also previously noted to be in atrial fibrillation with rapid ventricular response, rate as high as 185 bpm. Previously loaded with 10 mg of IV Cardizem, and started on Cardizem which is infusing at 10 mg/h. Blood pressure is normotensive. No documented history of atrial fibrillation in EMR. As far as her pulmonary status, nonlabored breathing pattern. On room air. No crepitus or subcutaneous emphysema. No focal tenderness with palpation. Multiple bruising at various stages of healing. Chin laceration. Current vital signs: Temperature 100.1 F, heart rate 87 bpm, blood pressure 112/65 mmHg, nontachypneic, SpO2 reading 97% on room air. Progress note dated June 20, 2024. 68-year-old patient seen yesterday in consultation. She is seen today in room 352. She is awake and alert. No distress. She is on room air. She is getting saline at 20 cc an hour. She has a history of multiple medical problems including COPD, tobacco use, alcoholism, alcoholic liver disease, hepatitis C, polysubstance abuse, and seizure disorder. The patient was seen recently for bilateral rib fractures. Current laboratory data includes a white count of 4.5, hemoglobin 8.6, hematocrit 25.7, and a platelet count of 80,000. Sodium 134, potassium 3.6, chlorides 107, CO2 23, BUN 8, creatinine 0.48. Glucose is 95. Progress note dated June 21, 2024. 68-year-old female seen today in room 352. The patient is alert, but really not speaking anything sensible at this point. She is currently on room air. She is not receiving any IV fluids. She apparently fell at home, and fractured ribs both, on the right side and left side. White count 5.4, hemoglobin 9.3, hematocrit 28.4, and platelet count 138,000. Sodium 136, potassium 4.2, chlorides 109, CO2 22, BUN 12, creatinine 0.58. Glucose is 97. Calcium 8.4, magnesium 1.4. Objective - Vital Signs Vital signs: Vital Signs Temp 98.2 F 06/21/24 08:00 Pulse 71 06/21/24 08:00 Resp 18 06/21/24 08:00 BP 131/71 06/21/24 08:00 Pulse Ox 99 06/21/24 08:00 FiO2 Intake & Output 06/20/24 06/21/2406/21/25 18:59 06:59 18:59 Intake Total 240 100 Output Total 600 875 Balance -360 -875 100 Weight 64.5 kg Intake: Oral 240 100 Output: Urine 600 875 Other: Voiding Method Indwelling Catheter Indwelling Catheter # Voids 1 - Exam No acute distress, confused. No respiratory distress, currently on room air. HEENT examination is grossly unremarkable. Mucous membranes are moist. No oral lesions. Neck supple. Full range of motion. No adenopathy thyromegaly or neck vein distention. Cardiovascular examination reveals regular rhythm rate. S1-S2 normal. No S3 or S4. No discernible murmur noted. Lungs reveal clear breath sounds. Her sounds are equal bilaterally. No adventitious lung sounds including wheezes rhonchi or crackles. Abdomen soft bowel sounds are heard. No masses or tenderness. Extremities are intact. No cyanosis clubbing or edema. Skin is without rash or lesion. Neurologic examination is brief but nonfocal. - Labs CBC & Chem 7: 06/21/24 05:22 06/21/24 05:22 Labs: Abnormal Lab Results - Last 24 Hours (Table) 06/21/24 06/21/24 Range/Units 05:22 05:22 RBC 3.12 L (4.10-5.20) 10*6/uL Hgb 9.3 L (12.0-15.0) g/dL Hct 28.4 L (37.2-46.3) % Plt Count 138 L D (140-440) 10*3/uL Sodium 136 L (137-145) mmol/L Chloride 109 H (98-107) mmol/L Magnesium 1.4 L (1.6-2.3) mg/dL Microbiology - Last 24 Hours (Table) 06/19/24 01:52 Blood Culture - Preliminary Blood Assessment and Plan Assessment: Acute/subacute fractures involving right anterior ribs 2 and 3 and posterior lateral left rib 11. No pneumothoraces or pleural effusions. No pulmonary contusions. Persistent right upper lobe infiltrate, seen on previous chest x- rays dating back to 2019, underlying malignancy is not entirely excluded but fel t to be less likely. Acute L1 vertebral compression fracture, with 25% height loss. Atrial fibrillation with rapid ventricular response. Elevated troponins, likely secondary to above and supply/demand mismatch. Acute febrile illness, without obvious infectious source identified. Altered mental status. Seizure disorder. Alcohol abuse. Polysubstance abuse, urine toxicology screen positive for opiates, TCAs, and marijuana. History of liver cirrhosis. History of hepatitis C. Chronic thrombocytopenia, likely secondary to above. Normocytic, normochromic anemia. Severe hypokalemia. Hypertension. History of hyperlipidemia. COPD, currently stable. Current ongoing tobacco dependence. History of frequent falls. Urinary retention. Plan: Plan dated June 20, 2024. The patient is doing about the same. Her pulmonary status is stable. She is on room air. She has bilateral rib fractures. All labs, x-rays, and medications are reviewed. We will continue to follow. Prognosis is guarded. Dictation was produced using [employer] software. Please excuse any grammatical, word or spelling errors. Plan dated June 21, 2024. The patient is stable from the pulmonary standpoint. She is on room air. She is not complaining of any shortness of breath or difficulty breathing. In addition, there is no evidence of cough, wheezing, chest tightness, or phlegm production. Labs, x-rays, and all medications are reviewed. We will continue to follow the patient, make recommendations. Prognosis is guarded. She remains a full code. Dictation was produced using [employer] software. Please excuse any grammatical, word or spelling errors. Time with Patient: Less than 30
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
--- NOTE | 2024-06-21 12:36 | EEG ---
ELECTROENCEPHALOGRAM REPORT PREAMBLE: This is a 68-year-old female with history of seizures, has abnormal EEG, this is her #3 EEG for followup. MEDICATIONS: The patient currently on, 1. Keppra. 2. Vimpat. 3. Dilantin. EEG FINDINGS: This is a 21-channel digital EEG recorded with video component, utilizing 10/20 international system with referential and bipolar montages. Background consists of moderately well-developed and regulated, mixed frequencies of low-voltage fast frequency beta intermixed with some 3 to 4 hertz mixed delta and theta activity seen in bihemispheric region. Background does not seem to be clearly reactive to eye opening and closing. There is still presence of periodic lateralized epileptiform discharges over the left hemispheric region, although they are not as aggressive, lower amplitude, and not as rhythmic. Some relatively normal appearing background seen intermittently during the study. No obvious electrographic seizure was seen. IMPRESSION: There is still continued presence of periodic lateralized epileptiform discharges over the left hemispheric region, although they have much improved, less aggressive, lower amplitude, and not as regular. Some improvement in the background activity seen. Still overall background slowing of moderate degree. Clinical correlation and repeat EEG recommended, if clinically indicated. MMODL / IJN: [id number] / LAM
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
[2024-06-21] MEDS: PHENYTOIN SODIUM EXTENDED 100 MG CAP PO SCH (13:14)
--- NOTE | 2024-06-21 14:07 | P.PN ---
Subjective Progress Note Date: 06/21/24 SURGICAL PROGRESS NOTE CHIEF COMPLAINT: Altered mental status HISTORY OF PRESENT ILLNESS: Patient is more awake. She remains confused. Has bedside sitter. She did eat some of her breakfast per the sitter. Afebrile. WBC 5.37 Hgb 9.3 platelets 138 PHYSICAL EXAM: VITAL SIGNS: Reviewed. GENERAL: no acute distress. HEENT: Abrasion on her chin ABDOMEN: Soft. Nondistended. Nontender. NEUROLOGIC: Confused. But awake and alert SKIN: Left upper arm bruising noted. Ecchymosis along the left hip and lower back. ASSESSMENT: 1. Fall 2. Acute/subacute fractures of right anterior ribs 2 and 3 and posterior lateral left rib 11 3. Acute L1 vertebral body compression fracture 4. Atrial fibrillation with rapid ventricular response 5. Altered mental status 6. History of alcohol abuse 7. Polysubstance abuse 8. Elevated troponins 9. Seizure disorder 10. History of liver cirrhosis 11. History of hepatitis C 12. Thrombocytopenia 13. Severe hypokalemia 14. Hypomagnesemia 15. Metabolic encephalopathy PLAN: - Patient seen evaluated by multiple consultants. Appreciate their recommen dations. - Orthopedic service has ordered an LSO back brace and has cleared patient for discharge - Service was transferred to medicine team. Surgical service will sign off. Please call with any questions or concerns. - DVT prophylaxis SCDs and GI prophylaxis Pepcid Physician It Quality Analyst note has been reviewed by physician. Signing provider agrees with the documented findings, assessment, and plan of care. Objective - Vital Signs Vital signs: Vital Signs Temp 98.8 F 06/21/24 12:50 Pulse 70 06/21/24 12:50 Resp 18 06/21/24 12:50 BP 143/76 06/21/24 12:50 Pulse Ox 96 06/21/24 12:50 FiO2 Intake & Output 06/20/24 06/21/24 06/21/24 18:59 06:59 18:59 Intake Total 240 100 Output Total 600 875 Balance -360 -875 100 Weight 64.5 kg Intake: Oral 240 100 Output: Urine 600 875 Other: Voiding Method Indwelling Catheter Indwelling Catheter # Voids 1 # Bowel Movements 1 - Labs CBC & Chem 7: 06/21/24 05:22 06/21/24 05:22 Labs: Abnormal Lab Results - Last 24 Hours (Table) 06/21/24 06/21/24 Range/Units 05:22 05:22 RBC 3.12 L (4.10-5.20) 10*6/uL Hgb 9.3 L (12.0-15.0) g/dL Hct 28.4 L (37.2-46.3) % Plt Count 138 L D (140-440) 10*3/uL Sodium 136 L (137-145) mmol/L Chloride 109 H (98-107) mmol/L Magnesium 1.4 L (1.6-2.3) mg/dL Microbiology - Last 24 Hours (Table) 06/19/24 01:52 Blood Culture - Preliminary Blood
--- NOTE | 2024-06-21 14:44 | P.PN ---
Subjective Progress Note Date: 06/21/24 History of present illness; Patient is a 68-year-old female with hypertension, seizures, depression, hyperl ipidemia, history of CVA, alcohol use disorder, recreational drug use, hepatitis C, COPD, who presents with altered mental status and rib and vertebrae fracture. Patient is poor historian and cannot provide history. No family present. Multiple recent admissions. February, patient worked up for altered mental status, seizures, and possible encephalitis and was transferred to [facility] for continuous EEG monitoring. Also, she evaluated the emergency department on 06/14/24 after fall down the stairs. 06/20/2024 Patient seen and examined at bedside. Remains lethargic, unable to fully assess mental capacity. Patient apparently A+O x 1 to nursing staff today. 06/21/2024 Patient seen and examined at bedside. Remains lethargic after Ativan for active withdrawals. She is now having loose watery diarrhea. Patient apparently A+O x 3 to nursing staff today. Social work seeing patient for APS. REVIEW OF SYSTEMS: Unable to fully assess due to encephalopathy. PHYSICAL EXAMINATION: Vitals reviewed GENERAL: Lethargic, no acute distress. HENT: Normocephalic, multiple bruises on forehead, dentures CARDIOVASCULAR: S1 and S2 present. No murmurs, rubs, or gallops. PULMONARY: Chest is clear to auscultation, no wheezing, rhonchi, or crackles. ABDOMEN: Soft, nontender, nondistended. No palpable organomegaly. EXTREMITIES: No apparent cyanosis, clubbing. No pedal edema. NEUROLOGICAL: Alert and oriented x3. Gross neurological examination with no apparent focal deficits. SKIN: Multiple excoriations on legs, multiple bruises Today significant findings: LabsWBC 5.3, hemoglobin 9.3, platelets 138, sodium 136, magnesium 1.4, phenytoin 13.8 EEG findings of overall background slowing of a moderate degree, improvement with background activity. Assessment and plan Patient is a 68-year-old female with hypertension, seizures, depression, hyperlipidemia, history of CVA, alcohol use disorder, polysubstance abuse, hepatitis C, COPD, who presents with altered mental status and rib and vertebrae fracture. #Toxic encephalopathy, likely due to drug use #Polysubstance abuse #History of seizures - Initial urine drug screening findings of opioids, TCA and marijuana, serum alcohol 15 - TSH WNL EEG reviewed Neurology following #Fever, possibly due to aspiration pneumonia #Mild leukopenia Tmax 100.3 F on admission, afebrile today Discontinue Unasyn Monitor CBC #Alcohol dependence with withdrawal #Alcohol withdrawal seizures - CIWA protocol with Ativan IVP in place Daily thiamine and folic acid - Fall and seizure precautions monitor daily electrolytes - cardiac monitoring - social media community manager consult #A-fib RVR likely due to alcohol, new onset #Elevated troponin, likely type II AL secondary to oxygen supply/demand mismatch - continuous cardiac monitoring - echocardiogram reviewed - Continue metoprolol succinate 12.5mg daily - Poor candidate for anticoagulation, will hold off at this time. Cardiology following #Bicytopenia, likely due to alcohol use #History of liver cirrhosis Initial hemoglobin 10.1, platelets 91 - Monitor CBC #Hypokalemia, resolved #Hyponatremia, improved #Hypomagnesemia, improving - Initial potassium 2.5, Mg 1.2 Given potassium chloride - Given magnesium sulfate Monitor CMP #Urinary retention Indwelling catheter - monitor ins and outs #Vertebral body compression fracture of L1 #Multiple rib fractures #Fall - Pain management Brace recommended by orthopedic surgery with conservative management Orthopedic surgery following Pulmonology following Chronic Medical Conditions #Seizures #Depression #Hyperlipidemia #Hypertension - Resume home medications F: P.o. E: Replete as needed N: Heart healthy diet Code status: Full code Dr. Parekh seen patient with resident, present during exam, and agreed with f indings. Dictation was produced using [employer] dictation software. Please excuse any grammatical, word or spelling errors. Objective - Vital Signs Vital signs: Vital Signs Temp 98.8 F 06/21/24 12:50 Pulse 70 06/21/24 12:50 Resp 18 06/21/24 12:50 BP 143/76 06/21/24 12:50 Pulse Ox 96 06/21/24 12:50 FiO2 Intake & Output 06/20/24 06/21/24 06/21/24 18:59 06:59 18:59 Intake Total 240 100 Output Total 600 875 Balance -360 -875 100 Weight 64.5 kg Intake: Oral 240 100 Output: Urine 600 875 Other: Voiding Method Indwelling Catheter Indwelling Catheter # Voids 1 # Bowel Movements 1 - Labs CBC & Chem 7: 06/21/24 05:22 06/21/24 05:22 Labs: Abnormal Lab Results - Last 24 Hours (Table) 06/21/24 06/21/24 Range/Units 05:22 05:22 RBC 3.12 L (4.10-5.20) 10*6/uL Hgb 9.3 L (12.0-15.0) g/dL Hct 28.4 L (37.2-46.3) % Plt Count 138 L D (140-440) 10*3/uL Sodium 136 L (137-145) mmol/L Chloride 109 H (98-107) mmol/L Magnesium 1.4 L (1.6-2.3) mg/dL Microbiology - Last 24 Hours (Table) 06/19/24 01:52 Blood Culture - Preliminary Blood
[2024-06-21] MEDS: DIPHENOX-ATROP 2.5-0.025 MG 1 EACH TAB PO SCH (18:53)
[2024-06-21] MEDS: PHENYTOIN SODIUM INJ 500 MG in SODIUM CHLORIDE 0.9% 50 ML IVPB STA (20:23)
[2024-06-21] MEDS ORDERED: PHENYTOIN SODIUM INJ 200 MG in SODIUM CHLORIDE 0.9% 100 ML IVPB SCH (21:00)
[2024-06-22 06:33] LABS: HCT 28.1 % (37.2-46.3); HGB 9.4 g/dL (12.0-15.0); MCH 30.4 pg (27.0-32.0); MCHC 33.5 g/dL (32.0-37.0); MCV 90.9 fL (80.0-97.0); Mean Platelet Volume 11.1 fL (9.5-12.2); Platelet Count 154 10*3/uL (140-440); RBC 3.09 10*6/uL (4.10-5.20); RDW 16.8 % (11.5-14.5)
[2024-06-22 06:50] LABS: African American GFR (CKD) >90 (>60 ml/min/1.73 sqM); Anion Gap 3 mmol/L; Blood Urea Nitrogen 6 mg/dL (7-17); Calcium 8.5 mg/dL (8.4-10.2); Carbon Dioxide 24 mmol/L (22-30); Chloride 110 mmol/L (98-107); Glucose 90 mg/dL (74-99); Magnesium 1.4 mg/dL (1.6-2.3); Non-African American GFR(CKD) >90 (>60 ml/min/1.73 sqM); Phenytoin (Dilantin) 12.7 ug/mL; Potassium 3.5 mmol/L (3.5-5.1); Sodium 137 mmol/L (137-145)
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
[2024-06-22] MEDS: POTASSIUM CHLORIDE ER 20 MEQ TAB.ER PO STA (09:26)
--- NOTE | 2024-06-22 09:26 | P.PN ---
Subjective Progress Note Date: 06/21/24 06/21/2024: Patient was seen for follow-up. Sitter was also present. Per nursing report patient was doing better earlier, fully oriented, but sometimes would have garbled speech word salad. She was scoring 14 on CIWA, therefore the nurse has just given her Ativan 1 mg IV. Now she is asleep. No obvious seizure-like activity has been noticed. On my review, there is some rhythmic movement of the right leg, which is possibly wall entry, as patient stops it when recommended. 06/20/2024: Patient was seen for a follow-up. Patient just returned from EEG department after prolonged EEG. Per sitter, patient has been sleeping all day. Now just waking up. Patient's daughter also arrived, who notices that patient is doing better than yesterday. Patient denies headache. No new concerns. Objective - Vital Signs Vital signs: Vital Signs Temp 98.8 F 06/21/24 12:50 Pulse 70 06/21/24 12:50 Resp 18 06/21/24 12:50 BP 143/76 06/21/24 12:50 Pulse Ox 96 06/21/24 12:50 FiO2 Intake & Output 06/20/24 06/21/24 06/21/24 18:59 06:59 18:59 Intake Total 240 100 Output Total 600 875 Balance -360 -875 100 Weight 64.5 kg Intake: Oral 240 100 Output: Urine 600 875 Other: Voiding Method Indwelling Catheter Indwelling Catheter # Voids 1 # Bowel Movements 1 - Exam Patient is somnolent, when she wakes up, was mumbling, but she received Ativan. Please refer to information as mentioned above in the subjective section. - Labs CBC & Chem 7: 06/22/24 05:33 06/22/24 05:33 Labs: Abnormal Lab Results - Last 24 Hours (Table) 06/21/24 06/21/24 Range/Units 05:22 05:22 RBC 3.12 L (4.10-5.20) 10*6/uL Hgb 9.3 L (12.0-15.0) g/dL Hct 28.4 L (37.2-46.3) % Plt Count 138 L D (140-440) 10*3/uL Sodium 136 L (137-145) mmol/L Chloride 109 H (98-107) mmol/L Magnesium 1.4 L (1.6-2.3) mg/dL Microbiology - Last 24 Hours (Table) 06/19/24 01:52 Blood Culture - Preliminary Blood Assessment and Plan Assessment: * Altered mental status, likely due to partial status epilepticus versus metabolic encephalopathy. Rule out hepatic encephalopathy. * Abnormal EEG with LPDs involving left hemispheric region * History of alcoholism, blood alcohol level borderline 15. * Probable alcohol withdrawal/DTs. * History of polysubstance abuse * Chronic tobacco use * History of seizure disorder * Severe hypokalemia * Hypomagnesemia * Recurrent falls * Acute L1 vertebral body compression fracture 25% height loss * Acute/subacute fractures of the right anterior ribs 2 and 3 and posterior- lateral left rib 11. * Atrial fibrillation with rapid ventricular rate * Possible hepatic cirrhosis noted on CT abdomen Plan: * Routine EEG 06/21/2084 showing continued presence of periodic lateralized a platform discharges over the left hemispheric region, although they have much improved, less aggressive, lower amplitude and not as regular. Some improvement in the background activity seen. Still overall background slowing of moderate degree. Clinical correlation and repeat EEG recommended, if clinically indicated. * Prolonged EEG 06/20/2024 was again abnormal due to presence of periodic lateralized epileptiform discharges over the left hemispheric region at 1 Hz. Background slowing of moderate to severe degree, suggestive of encephalopathy. When compared to the EEG from 06/19/2024, the amplitude of the epileptiform activity has decreased (improved). Follow-up EEG and perhaps continuous EEG monitoring recommended. * Patient has received full Dilantin loading dose yesterday. Her Dilantin level is 13.8 this morning. * Patient at present showing some rhythmic tremoring of her right leg. We will give an extra loading dose of Dilantin 500 mg 1. * Repeat routine EEG in the morning. * I spoke to patient's daughter, who mentioned that patient was transferred to [facility] after last admission in February 2024. They performed lumbar puncture on her. Patient had continuous EEG monitoring. Patient was discharged home in a cab. Patient's daughter was not satisfied with the disposition. * We still have not obtained records from [facility] from that admission. The community marketing manager tried to call the [facility] medical record depar tment, but was not able to get hold off. * We will try to transfer patient to [facility] for continuous EEG monitoring. * Initial EEG 06/19/2024 was severely abnormal due to presence of continuous, periodic lateralized epileptiform discharges at 1 Hz involving the left hemispheric region, suggestive of focal cortical neuronal dysfunction with underlying cortical irritability and tendency for seizures. Partial status epilepticus cannot be ruled out. Clinical correlation is recommended. Background slowing, suggestive of moderate to severe encephalopathy. Follow- up EEG and continuous EEG monitoring recommended. * Continue Vimpat 200 mg twice a day. * Continue higher dose of Keppra 1500 mg twice a day (at home on Keppra 1000 mg twice a day). * 2-D echo revealed normal LV EF 60-65%. Mild concentric LVH. No obvious regional wall motion abnormality. Moderate left atrial dilation. * Cardiology, pulmonary, orthopedic surgery also on board. Addendum: I talked to [facility] transfer team and informed all the current status of the patient. Spent 11 minutes. I then talked to the Neuro-masticator at [facility] Dr. Connor in detail. She did review patient's records from previous admissions. She mentioned that patient has history of polysubstance abuse and medication noncompliance as she has been transferred to [facility] multiple times for similar episodes, or triggered by some sort of intoxication. Last episode was in February 2024. Her examination seems similar to what I described to her as "nonsensical speech and transient altered mental status". She had an EEG multiple times which consistently showed no correlate to these episodes just encephalopathy and LPDs. They did not treat the LPDs and she eventually improved. During one hospitalization she was on Vimpat, Keppra and Depakote, but February admission she was discharged on Keppra 2 g twice a day and Vimpat 200 mg twice a day. Her LP was normal and same with the MRI and vessel imaging. At this point, she would not escalate therapy, as treating her known LPDs is only going to make her more confused. She has significant cortical atrophy for 68-year-old which is likely due to her substance abuse but her cerebral reserve is just that much lower and will take longer to recover. [facility] declined to accept her. Time with Patient: Greater than 30
[2024-06-22] MEDS: MAGNESIUM SULFATE-D5W PMX 1 GM in DEXTROSE/WATER 1 100ML.BAG IVPB SCH (09:27)
--- NOTE | 2024-06-22 10:43 | P.PN ---
Subjective Progress Note Date: 06/22/24 Principal diagnosis: Rib fracture. Patient is a 68-year-old female with past medical history significant for COPD, tobacco smoker, alcoholism, liver disease, hepatitis C, polysubstance abuse, seizure disorder. Currently, patient is altered and unable to provide useful information. No family present. Note that back in February, patient worked up for altered mental status, seizures, and possible encephalitis. She ended up being transferred to [facility] for continuous EEG monitoring. More recently, patient evaluated the emergency department on 06/14/24 after fall down the stairs. Patient presented back to the emergency department yesterday evening. Per the ER report noticed to be confused by family. Also, noted to have low-grade temps in the emergency department. Pulmonary consult was placed as the patient was found to have multiple rib fractures. CT of the chest, abdomen, pelvis with contrast showing acute/subacute fractures of the right anterior ribs 2 and 3 and posterior lateral left rib 11. Acute L1 vertebral compression fracture with 25% height loss, no significant retropulsion or spinal canal or neural for minimal stenosis. Similar right upper lobe airspace opacity. CT of the head and C-spine without contrast did not show any acute intracranial process. No evidence of cervical spine fracture. Nonspecific white matter changes, likely secondary to chronic small vessel ischemic disease. CBC: WBC count 8.3, hemoglobin 10.1, platelets 91,000. INR 1.2, APTT 22.4. CMP: Sodium 132, potassium 2.5, chloride 98, serum bicarb 24, BUN 17, creatinine 0.62, glucose 103. Normal saline infusing at 130 mL/h. Lactic 3 and down to 1. LFTs unremarkable. Total bilirubin 2.6. Troponin 0.26. Creatinine kidney is 485. Urinalysis fairly unremarkable. Negative leukocytes and nitrates. Urine toxicology screen positive for opiates, TCAs, and marijuana. Serum alcohol level 15. Patient currently being evaluated emergency department. According to nursing staff, experiencing some urinary retention with a total of 700 cc of urine found in the bladder with bladder ultrasound. Patient has been straight cathed x 1. She is currently awake with nonsensical speech pattern. Facial spasms or seizure activity and eye blinking. Terminated with one 1 mg Ativan IV push. History of seizures, maintained on Keppra on outpatient basis. Patient also previously noted to be in atrial fibrillation with rapid ventricular response, rate as high as 185 bpm. Previously loaded with 10 mg of IV Cardizem, and started on Cardizem which is infusing at 10 mg/h. Blood pressure is normotensive. No documented history of atrial fibrillation in EMR. As far as her pulmonary status, nonlabored breathing pattern. On room air. No crepitus or subcutaneous emphysema. No focal tenderness with palpation. Multiple bruising at various stages of healing. Chin laceration. Current vital signs: Temperature 100.1 F, heart rate 87 bpm, blood pressure 112/65 mmHg, nontachypneic, SpO2 reading 97% on room air. Progress note dated June 20, 2024. 68-year-old patient seen yesterday in consultation. She is seen today in room 352. She is awake and alert. No distress. She is on room air. She is getting saline at 20 cc an hour. She has a history of multiple medical problems including COPD, tobacco use, alcoholism, alcoholic liver disease, hepatitis C, polysubstance abuse, and seizure disorder. The patient was seen recently for bilateral rib fractures. Current laboratory data includes a white count of 4.5, hemoglobin 8.6, hematocrit 25.7, and a platelet count of 80,000. Sodium 134, potassium 3.6, chlorides 107, CO2 23, BUN 8, creatinine 0.48. Glucose is 95. Progress note dated June 21, 2024. 68-year-old female seen today in room 352. The patient is alert, but really not speaking anything sensible at this point. She is currently on room air. She is not receiving any IV fluids. She apparently fell at home, and fractured ribs both, on the right side and left side. White count 5.4, hemoglobin 9.3, hematocrit 28.4, and platelet count 138,000. Sodium 136, potassium 4.2, chlorides 109, CO2 22, BUN 12, creatinine 0.58. Glucose is 97. Calcium 8.4, magnesium 1.4. Progress note dated June 22, 2024. 68-year-old female seen in room 354. The patient is currently resting comfortably in bed. She is on room air. She is not receiving any IV fluids. The patient recently had an EEG, and those results are currently pending. [facility] laboratory data includes a white count of 3.8, hemoglobin 9.4, hematocrit 28.1, and platelet count 154,000. Sodium 137, potassium 3.5, chlorides 110, CO2 24, BUN 6, creatinine 0.49. Calcium is 8.5. Magnesium is 1.4. Objective - Vital Signs Vital signs: Vital Signs Temp 98.1 F 06/22/24 09:17 Pulse 73 06/22/24 09:17 Resp 16 06/22/24 09:17 BP 145/60 06/22/24 09:17 Pulse Ox 98 06/22/24 09:17 FiO2 Intake & Output 06/21/24 06/22/24 06/22/24 18:59 06:59 18:59 Intake Total 300 20 10 Balance 300 20 10 Weight 65.5 kg Intake: IV 20 10 Invasive Line 4 20 10 Oral 300 Other: Voiding Method Diaper Diaper Incontinent Incontinent # Voids 1 2 # Bowel Movements 1 1 - Exam No acute distress, confused. No respiratory distress, currently on room air. HEENT examination is grossly unremarkable. Mucous membranes are moist. No oral lesions. Neck supple. Full range of motion. No adenopathy thyromegaly or neck vein distention. Cardiovascular examination reveals regular rhythm rate. S1-S2 normal. No S3 or S4. No discernible murmur noted. Lungs reveal clear breath sounds. Her sounds are equal bilaterally. No adventitious lung sounds including wheezes rhonchi or crackles. Abdomen soft bowel sounds are heard. No masses or tenderness. Extremities are intact. No cyanosis clubbing or edema. Skin is without rash or lesion. Neurologic examination is brief but nonfocal. - Labs CBC & Chem 7: 06/22/24 05:33 06/22/24 05:33 Labs: Abnormal Lab Results - Last 24 Hours (Table) 06/22/24 06/22/24 Range/Units 05:33 05:33 WBC 3.80 L (4.50-10.00) 10*3/uL RBC 3.09 L (4.10-5.20) 10*6/uL Hgb 9.4 L (12.0-15.0) g/dL Hct 28.1 L (37.2-46.3) % Chloride 110 H (98-107) mmol/L BUN 6 L (7-17) mg/dL Creatinine 0.49 L (0.52-1.04) mg/dL Magnesium 1.4 L (1.6-2.3) mg/dL Microbiology - Last 24 Hours (Table) 06/19/24 01:52 Blood Culture - Preliminary Blood Assessment and Plan Assessment: Acute/subacute fractures involving right anterior ribs 2 and 3 and posterior lat eral left rib 11. No pneumothoraces or pleural effusions. No pulmonary contusions. Persistent right upper lobe infiltrate, seen on previous chest x- rays dating back to 2019, underlying malignancy is not entirely excluded but felt to be less likely. Acute L1 vertebral compression fracture, with 25% height loss. Atrial fibrillation with rapid ventricular response. Elevated troponins, likely secondary to above and supply/demand mismatch. Acute febrile illness, without obvious infectious source identified. Altered mental status. Seizure disorder. Alcohol abuse. Polysubstance abuse, urine toxicology screen positive for opiates, TCAs, and marijuana. History of liver cirrhosis. History of hepatitis C. Chronic thrombocytopenia, likely secondary to above. Normocytic, normochromic anemia. Severe hypokalemia. Hypertension. History of hyperlipidemia. COPD, currently stable. Current ongoing tobacco dependence. History of frequent falls. Urinary retention. Plan: Plan dated June 20, 2024. The patient is doing about the same. Her pulmonary status is stable. She is on room air. She has bilateral rib fractures. All labs, x-rays, and medications are reviewed. We will continue to follow. Prognosis is guarded. Dictation was produced using [employer] software. Please excuse any grammatical, word or spelling errors. Plan dated June 21, 2024. The patient is stable from the pulmonary standpoint. She is on room air. She is not complaining of any shortness of breath or difficulty breathing. In addition, there is no evidence of cough, wheezing, chest tightness, or phlegm production. Labs, x-rays, and all medications are reviewed. We will continue to follow the patient, make recommendations. Prognosis is guarded. She remains a full code. Dictation was produced using [employer] software. Please excuse any grammatical, word or spelling errors. Plan dated June 22, 2024. The patient continues to do well from the pulmonary standpoint. She denies any pulmonary complaints including shortness of breath, cough, wheezing, chest tig htness, or phlegm production. We will continue to follow make recommendations. Prognosis is guarded. The patient did have an EEG, those results are currently pending. We will continue to follow. The patient was physically seen and examined. Labs, x-rays, and medications were reviewed. The assessment, plan and medical decision making was determined by me. Time with Patient: Less than 30
[2024-06-22] MEDS: PHENYTOIN SODIUM INJ 200 MG in SODIUM CHLORIDE 0.9% 36 ML IVPB SCH (11:55)
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
--- NOTE | 2024-06-23 02:21 | EEG ---
ELECTROENCEPHALOGRAM REPORT PREAMBLE: This is a 68-year-old female with abnormal EEG and altered mental status. This study is performed to evaluate for epileptiform activity. CURRENT MEDICATIONS: 1. Keppra. 2. Vimpat. 3. Dilantin. EEG FINDINGS: This is a 21-channel digital EEG recorded with video component, utilizing 10/20 international system with referential and bipolar montage. The recording starts and continues with the presence of somewhat low voltage, mixed theta and some delta activity in bihemispheric region. The patient continues to have left-sided lateral periodic discharges (LPDs), but appears to be even further better as compared to yesterday, with not as frequent and not as higher amplitude. Some intermittent transient normal appearing background was also seen posteriorly. No electrographic seizure was recorded. IMPRESSION: An abnormal EEG due to: 1. Background slowing, suggestive of moderate encephalopathy. 2. Presence of lateralized periodic discharges involving the left hemispheric region, which appears to have decreased in frequency and amplitude as compared to the studies from yesterday. No obvious electrographic seizure was recorded. Clinical correlation is strongly recommended. MMODL / IJN: [id number] /
[2024-06-23 06:46] LABS: African American GFR (CKD) >90 (>60 ml/min/1.73 sqM); Anion Gap 6 mmol/L; Blood Urea Nitrogen 9 mg/dL (7-17); Calcium 8.6 mg/dL (8.4-10.2); Carbon Dioxide 23 mmol/L (22-30); Chloride 108 mmol/L (98-107); Glucose 95 mg/dL (74-99); Magnesium 1.6 mg/dL (1.6-2.3); Non-African American GFR(CKD) >90 (>60 ml/min/1.73 sqM); Potassium 3.9 mmol/L (3.5-5.1); Sodium 137 mmol/L (137-145)
--- NOTE | 2024-06-23 07:39 | P.PN ---
Subjective Progress Note Date: 06/22/24 06/22/2024: Patient was seen for follow-up. A sitter is also present by the bedside. Patient admits to having headache. Patient is still very confused, talking nonsensical speech. No obvious seizures have been witnessed by the family or the nursing staff. 06/21/2024: Patient was seen for follow-up. Sitter was also present. Per nursing report patient was doing better earlier, fully oriented, but sometimes would have garbled speech word salad. She was scoring 14 on CIWA, therefore the nurse has just given her Ativan 1 mg IV. Now she is asleep. No obvious seizure-like activity has been noticed. On my review, there is some rhythmic movement of the right leg, which is possibly wall entry, as patient stops it when recommended. 06/20/2024: Patient was seen for a follow-up. Patient just returned from EEG department after prolonged EEG. Per sitter, patient has been sleeping all day. Now just waking up. Patient's daughter also arrived, who notices that patient is doing better than yesterday. Patient denies headache. No new concerns. I talked to [facility] transfer team (06/21/2024) and informed all the current status of the patient. Spent 11 minutes. I then talked to the Neuro-telephone technician at [facility] Dr. Connor in detail. She did review patient's records from previous admissions. She mentioned that patient has history of polysubstance abuse and medication noncompliance as she has been transferred to [facility] multiple times for similar episodes, or triggered by some sort of intoxication. Last episode was in February 2024. Her examination seems similar to what I described to her as "nonsensical speech and transient altered mental status". She had an EEG multiple times which consistently showed no correlate to these episodes just encephalopathy and LPDs. They did not treat the LPDs and she eventually improved. During one hospitalization she was on Vimpat, Keppra and Depakote, but February admission she was discharged on Keppra 2 g twice a day and Vimpat 200 mg twice a day. Her LP was normal and same with the MRI and vessel imaging. At this point, she would not escalate therapy, as treating her known LPDs is only going to make her more confused. She has significant cortical atrophy for 68-year-old which is likely due to her substance abuse but her cerebral reserve is just that much lower and will take longer to recover. [facility] declined to accept her. Objective - Vital Signs Vital signs: Vital Signs Temp 98.5 F 06/22/24 15:28 Pulse 72 06/22/24 15:28 Resp 16 06/22/24 15:28 BP 107/61 06/22/24 15:28 Pulse Ox 97 06/22/24 15:28 FiO2 Intake & Output 06/21/24 06/22/24 06/22/24 18:59 06:59 18:59 Intake Total 300 20 250 Balance 300 20 250 Weight 65.5 kg Intake: IV 20 10 Invasive Line 4 20 10 Oral 300 240 Other: Voiding Method Diaper Diaper Incontinent Incontinent # Voids 1 2 # Bowel Movements 1 1 - Exam Patient is somnolent, when she wakes up, was mumbling. Patient speaks totally out of context, sometimes gibberish speech, sometimes mumbles. On asking the month patient states "sheets". Patient states "I feed her dog food". "Give what she wants". "I give her canned food, she eats when she eats". Patient's strength is equal with good strength of the lpn medical assistant, biceps triceps and legs. - Labs CBC & Chem 7: 06/22/24 05:33 06/23/24 05:39 Labs: Abnormal Lab Results - Last 24 Hours (Table) 06/22/24 06/22/24 Range/Units 05:33 05:33 WBC 3.80 L (4.50-10.00) 10*3/uL RBC 3.09 L (4.10-5.20) 10*6/uL Hgb 9.4 L (12.0-15.0) g/dL Hct 28.1 L (37.2-46.3) % Chloride 110 H (98-107) mmol/L BUN 6 L (7-17) mg/dL Creatinine 0.49 L (0.52-1.04) mg/dL Magnesium 1.4 L (1.6-2.3) mg/dL Microbiology - Last 24 Hours (Table) 06/19/24 01:52 Blood Culture - Preliminary Blood Assessment and Plan Assessment: * Altered mental status, likely due to partial status epilepticus versus metabolic encephalopathy. Rule out hepatic encephalopathy. * Abnormal EEG with LPDs involving left hemispheric region * History of alcoholism, blood alcohol level borderline 15. * Probable alcohol withdrawal/DTs. * History of polysubstance abuse * Chronic tobacco use * History of seizure disorder * Severe hypokalemia * Hypomagnesemia * Recurrent falls * Acute L1 vertebral body compression fracture 25% height loss * Acute/subacute fractures of the right anterior ribs 2 and 3 and posterior- lateral left rib 11. * Atrial fibrillation with rapid ventricular rate * Possible hepatic cirrhosis noted on CT abdomen Plan: * Routine EEG 06/22/2024, was abnormal due to background slowing, suggestive of moderate encephalopathy. Presence of lateralized periodic discharges(LPDs) involving the left hemispheric region, which appears to have decrease in frequency and amplitude as compared to the studies from yesterday. No obvious epileptic seizure was recorded. Clinical correlation is strongly recommended. * Routine EEG 06/21/2024 showing continued presence of periodic lateralized a platform discharges over the left hemispheric region, although they have much improved, less aggressive, lower amplitude and not as regular. Some improvement in the background activity seen. Still overall background slowing of moderate degree. Clinical correlation and repeat EEG recommended, if clinically indicated. * Prolonged EEG 06/20/2024 was again abnormal due to presence of periodic lateralized epileptiform discharges over the left hemispheric region at 1 Hz. Background slowing of moderate to severe degree, suggestive of encephalopathy. When compared to the EEG from 06/19/2024, the amplitude of the epileptiform activity has decreased (improved). Follow-up EEG and perhaps continuous EEG monitoring recommended. * Initial EEG 06/19/2024 was severely abnormal due to presence of continuous, periodic lateralized epileptiform discharges at 1 Hz involving the left hemispheric region, suggestive of focal cortical neuronal dysfunction with underlying cortical irritability and tendency for seizures. Partial status epilepticus cannot be ruled out. Clinical correlation is recommended. Backg round slowing, suggestive of moderate to severe encephalopathy. Follow-up EEG and continuous EEG monitoring recommended. * Patient apparently on Dilantin, Keppra and Vimpat. Her Dilantin level today is 12.7. * Check Dilantin level, Keppra level and ammonia in the morning. * I spoke to patient's daughter, who mentioned that patient was transferred to [facility] after last admission in February 2024. They performed lumbar puncture on her. Patient had continuous EEG monitoring. Patient was discharged home in a cab. Patient's daughter was not satisfied with the disposition. * We still have not obtained records from [facility] from that admission. The community relations police lieutenant tried to call the [facility] medical record department, but was not able to get hold off. * We will try to transfer patient to [facility] for continuous EEG monitoring. * 2-D echo revealed normal LV EF 60-65%. Mild concentric LVH. No obvious regional wall motion abnormality. Moderate left atrial dilation. * Cardiology, pulmonary, orthopedic surgery also on board. * I spoke to patient's daughter, who mentions that when she had entered patient's home, there were about 6 bottles of Rum in her house. Some of them are completely empty, some of them were partly empty. She found one bottle in the laundry basket, and one in the kitchen and in different parts of the house. She believes that patient has been drinking heavily only for about 6 to to 7 days. She was drinking at least 1 pint of rum a day. She had her own apartment but she was kicked out. She is currently renting a room in her [facility]. * I suspect current patient's condition related to withdrawal of either substance use, alcohol. * Primary team considering potential discharge today. I informed them that the patient is not neurologically ready for discharge. She is still very confused. Discussed with primary team. Also discussed with the nursing staff.
[2024-06-23 08:28] LABS: Albumin 2.9 g/dL (3.5-5.0); Bilirubin, Delta 0.4 mg/dL (0.0-0.2); Bilirubin,Unconjugated 0.4 mg/dL (0.0-1.1); Total Bilirubin 0.8 mg/dL (0.2-1.3); Total Protein 5.9 g/dL (6.3-8.2)
[2024-06-23 09:13] LABS: Phenytoin (Dilantin) 9.7 ug/mL
--- NOTE | 2024-06-23 10:50 | P.PN ---
Subjective Progress Note Date: 06/23/24 Principal diagnosis: Rib fracture. Patient is a 68-year-old female with past medical history significant for COPD, tobacco smoker, alcoholism, liver disease, hepatitis C, polysubstance abuse, seizure disorder. Currently, patient is altered and unable to provide useful information. No family present. Note that back in February, patient worked up for altered mental status, seizures, and possible encephalitis. She ended up being transferred to [facility] for continuous EEG monitoring. More recently, patient evaluated the emergency department on 06/14/24 after fall down the stairs. Patient presented back to the emergency department yesterday evening. Per the ER report noticed to be confused by family. Also, noted to have low-grade temps in the emergency department. Pulmonary consult was placed as the patient was found to have multiple rib fractures. CT of the chest, abdomen, pelvis with contrast showing acute/subacute fractures of the right anterior ribs 2 and 3 and posterior lateral left rib 11. Acute L1 vertebral compression fracture with 25% height loss, no significant retropulsion or spinal canal or neural for minimal stenosis. Similar right upper lobe airspace opacity. CT of the head and C-spine without contrast did not show any acute intracranial process. No evidence of cervical spine fracture. Nonspecific white matter changes, likely secondary to chronic small vessel ischemic disease. CBC: WBC count 8.3, hemoglobin 10.1, platelets 91,000. INR 1.2, APTT 22.4. CMP: Sodium 132, potassium 2.5, chloride 98, serum bicarb 24, BUN 17, creatinine 0.62, glucose 103. Normal saline infusing at 130 mL/h. Lactic 3 and down to 1. LFTs unremarkable. Total bilirubin 2.6. Troponin 0.26. Creatinine kidney is 485. Urinalysis fairly unremarkable. Negative leukocytes and nitrates. Urine toxicology screen positive for opiates, TCAs, and marijuana. Serum alcohol level 15. Patient currently being evaluated emergency department. According to nursing staff, experiencing some urinary retention with a total of 700 cc of urine found in the bladder with bladder ultrasound. Patient has been straight cathed x 1. She is currently awake with nonsensical speech pattern. Facial spasms or seizure activity and eye blinking. Terminated with one 1 mg Ativan IV push. History of seizures, maintained on Keppra on outpatient basis. Patient also previously noted to be in atrial fibrillation with rapid ventricular response, rate as high as 185 bpm. Previously loaded with 10 mg of IV Cardizem, and started on Cardizem which is infusing at 10 mg/h. Blood pressure is normotensive. No documented history of atrial fibrillation in EMR. As far as her pulmonary status, nonlabored breathing pattern. On room air. No crepitus or subcutaneous emphysema. No focal tenderness with palpation. Multiple bruising at various stages of healing. Chin laceration. Current vital signs: Temperature 100.1 F, heart rate 87 bpm, blood pressure 112/65 mmHg, nontachypneic, SpO2 reading 97% on room air. Progress note dated June 20, 2024. 68-year-old patient seen yesterday in consultation. She is seen today in room 352. She is awake and alert. No distress. She is on room air. She is getting saline at 20 cc an hour. She has a history of multiple medical problems including COPD, tobacco use, alcoholism, alcoholic liver disease, hepatitis C, polysubstance abuse, and seizure disorder. The patient was seen recently for bilateral rib fractures. Current laboratory data includes a white count of 4.5, hemoglobin 8.6, hematocrit 25.7, and a platelet count of 80,000. Sodium 134, potassium 3.6, chlorides 107, CO2 23, BUN 8, creatinine 0.48. Glucose is 95. Progress note dated June 21, 2024. 68-year-old female seen today in room 352. The patient is alert, but really not speaking anything sensible at this point. She is currently on room air. She is not receiving any IV fluids. She apparently fell at home, and fractured ribs both, on the right side and left side. White count 5.4, hemoglobin 9.3, hematocrit 28.4, and platelet count 138,000. Sodium 136, potassium 4.2, chlorides 109, CO2 22, BUN 12, creatinine 0.58. Glucose is 97. Calcium 8.4, magnesium 1.4. Progress note dated June 22, 2024. 68-year-old female seen in room 354. The patient is currently resting comfortably in bed. She is on room air. She is not receiving any IV fluids. The patient recently had an EEG, and those results are currently pending. [facility] laboratory data includes a white count of 3.8, hemoglobin 9.4, hematocrit 28.1, and platelet count 154,000. Sodium 137, potassium 3.5, chlorides 110, CO2 24, BUN 6, creatinine 0.49. Calcium is 8.5. Magnesium is 1.4. Progress note dated June 23, 2024. 68-year-old female again seen in room 354. There is a sitter in the room with the patient. She is currently sleeping. She appears in no distress. She is on room air. She is not requiring any fluids. According to nursing, the patient had an uneventful night. Laboratory data includes a sodium 137, potassium 3.9, chloride 108, CO2 23, anion gap 6, BUN 9, and creatinine 0.46. Objective - Vital Signs Vital signs: Vital Signs Temp 98.5 F 06/23/24 08:04 Pulse 65 06/23/24 08:04 Resp 18 06/23/24 08:04 BP 126/72 06/23/24 08:04 Pulse Ox 99 06/23/24 08:04 FiO2 Intake & Output 06/22/24 06/23/24 06/23/24 18:59 06:59 18:59 Intake Total 500 20 Balance 500 20 Weight 63.6 kg Intake: IV 20 20 Invasive Line 4 10 Invasive Line 5 10 20 Oral 480 Other: Voiding Method Diaper Diaper Diaper Incontinent Incontinent Incontinent # Voids 2 - Exam No acute distress, confused. No respiratory distress, currently on room air. HEENT examination is grossly unremarkable. Mucous membranes are moist. No oral lesions. Neck supple. Full range of motion. No adenopathy thyromegaly or neck vein distention. Cardiovascular examination reveals regular rhythm rate. S1-S2 normal. No S3 or S4. No discernible murmur noted. Lungs reveal clear breath sounds. Her sounds are equal bilaterally. No adventitious lung sounds including wheezes rhonchi or crackles. Abdomen soft bowel sounds are heard. No masses or tenderness. Extremities are intact. No cyanosis clubbing or edema. Skin is without rash or lesion. Neurologic examination is brief but nonfocal. - Labs CBC & Chem 7: 06/22/24 05:33 06/23/24 05:39 Labs: Abnormal Lab Results - Last 24 Hours (Table) 06/23/24 06/23/24 Range/Units 05:39 07:45 Chloride 108 H (98-107) mmol/L Creatinine 0.46 L (0.52-1.04) mg/dL Delta Bilirubin 0.4 H (0.0-0.2) mg/dL Total Protein 5.9 L (6.3-8.2) g/dL Albumin 2.9 L (3.5-5.0) g/dL Microbiology - Last 24 Hours (Table) 06/19/24 01:52 Blood Culture - Preliminary Blood Assessment and Plan Assessment: Acute/subacute fractures involving right anterior ribs 2 and 3 and posterior lateral left rib 11. Persistent right upper lobe infiltrate, seen on previous chest x-rays dating back to 2019. Acute L1 vertebral compression fracture, with 25% height loss. Atrial fibrillation with rapid ventricular response. Elevated troponins, likely secondary to above and supply/demand mismatch. Acute febrile illness, without obvious infectious source identified. Altered mental status. Seizure disorder. Alcohol abuse. Polysubstance abuse, urine toxicology screen positive for opiates, TCAs, and marijuana. History of liver cirrhosis. History of hepatitis C. Chronic thrombocytopenia, likely secondary to above. Normocytic, normochromic anemia. Severe hypokalemia. Hypertension. History of hyperlipidemia. COPD, currently stable. Current ongoing tobacco dependence. History of frequent falls. Urinary retention. Plan: Plan dated June 20, 2024. The patient is doing about the same. Her pulmonary status is stable. She is on room air. She has bilateral rib fractures. All labs, x-rays, and medications are reviewed. We will continue to follow. Prognosis is guarded. Dictation was produced using [employer] software. Please excuse any grammatical, word or spelling errors. Plan dated June 21, 2024. The patient is stable from the pulmonary standpoint. She is on room air. She is not complaining of any shortness of breath or difficulty breathing. In addition, there is no evidence of cough, wheezing, chest tightness, or phlegm production. Labs, x-rays, and all medications are reviewed. We will continue to follow the patient, make recommendations. Prognosis is guarded. She remains a full code. Dictation was produced using [employer] software. Please excuse any grammatical, word or spelling errors. Plan dated June 22, 2024. The patient continues to do well from the pulmonary standpoint. She denies any pulmonary complaints including shortness of breath, cough, wheezing, chest tightness, or phlegm production. We will continue to follow make recommendations. Prognosis is guarded. The patient did have an EEG, those results are currently pending. We will continue to follow. The patient was physically seen and examined. Labs, x-rays, and medications were reviewed. The assessment, plan and medical decision making was determined by me. Plan dated June 23, 2024. The patient appears to be doing reasonably well. She is resting comfortably in bed. No acute distress. She had an uneventful night. She is currently on room air. She is not requiring any supplemental fluids. All labs, x-rays, and medications are reviewed. We will continue to follow. Prognosis is guarded. Dictation was produced using [employer] dictation software. Please excuse any grammatical, word or spelling errors. Time with Patient: Less than 30
--- NOTE | 2024-06-23 11:08 | P.PN ---
Subjective Progress Note Date: 06/23/24 CHIEF COMPLAINT: Status post fall HISTORY OF PRESENT ILLNESS: The patient is a 68-year-old female with history of status post fall. She had multiple subacute acute injuries including bilateral rib fractures and lumbar compression fracture. Patient has one-to-one sitter. She was just given Ativan. No new complaints of abdominal pain. ROS: No reports of nausea and vomiting. No fevers or chills. No new chest pain. No productive sputum PHYSICAL EXAM: VITAL SIGNS: Reviewed CONSTITUTIONAL: Well developed and in no acute distress. EYES: Conjuctivae without sclera icterus. Extraocular movements grossly intact. HEAD, EARS, NOSE, THROAT: Moist buccal mucosa. Head is atraumatic, normocephal ic. Hears conversational speech. No nasal drainage. RESPIRATORY: Non-labored respirations and equal bilateral excursions. CARDIOVASCULAR: Palpable 2+ radial pulses. ABDOMEN: No peritonitis. MUSCULOSKELETAL: No gross deformity of the lower extremities noted. No clubbing. No cyanosis. SKIN: Good skin turgor. Well perfused. NEUROLOGIC: Cranial nerves II through XII grossly intact. No focal or lateralizing signs. PSYCH: Alert to self. CLINICAL LABS: Reviewed. CBC pending including iron studies. ASSESSMENT: 1. Status post fall 2. Traumatic bilateral rib fractures 3. Vertebral fracture, acute/traumatic 4. Alcohol abuse disorder 5. Anemia PLAN: 1. At this time, iron studies pending for necessity of iron infusions. 2. Patient receiving Ativan for history of alcohol abuse disorder 3. Pulmonary toilet with incentive spirometer for acute and subacute rib fractures Dictation was produced using [employer] dictation software. Please excuse any grammatical, word or spelling errors. Objective - Vital Signs Vital signs: Vital Signs Temp 98.5 F 06/23/24 08:04 Pulse 65 06/23/24 08:04 Resp 18 06/23/24 08:04 BP 126/72 06/23/24 08:04 Pulse Ox 99 06/23/24 08:04 FiO2 Intake & Output 06/22/24 06/23/24 06/23/24 18:59 06:59 18:59 Intake Total 500 260 Balance 500 260 Weight 63.6 kg Intake: IV 20 20 Invasive Line 4 10 Invasive Line 5 10 20 Oral 480 240 Other: Voiding Method Diaper Diaper Diaper Incontinent Incontinent Incontinent # Voids 2 - Labs CBC & Chem 7: 06/22/24 05:33 06/23/24 05:39 Labs: Abnormal Lab Results - Last 24 Hours (Table) 06/23/24 06/23/24 Range/Units 05:39 07:45 Chloride 108 H (98-107) mmol/L Creatinine 0.46 L (0.52-1.04) mg/dL Delta Bilirubin 0.4 H (0.0-0.2) mg/dL Total Protein 5.9 L (6.3-8.2) g/dL Albumin 2.9 L (3.5-5.0) g/dL Microbiology - Last 24 Hours (Table) 06/19/24 01:52 Blood Culture - Preliminary Blood
--- NOTE | 2024-06-23 11:39 | P.PN ---
Subjective Progress Note Date: 06/23/24 History of present illness; Patient is a 68-year-old female with hypertension, seizures, depression, hyperl ipidemia, history of CVA, alcohol use disorder, recreational drug use, hepatitis C, COPD, who presents with altered mental status and rib and vertebrae fracture. Patient is poor historian and cannot provide history. No family present. Multiple recent admissions. February, patient worked up for altered mental status, seizures, and possible encephalitis and was transferred to [facility] for continuous EEG monitoring. Also, she evaluated the emergency department on 06/14/24 after fall down the stairs. 06/20/2024 Patient seen and examined at bedside. Remains lethargic, unable to fully assess mental capacity. Patient apparently A+O x 1 to nursing staff today. 06/21/2024 Patient seen and examined at bedside. Remains lethargic after Ativan for active withdrawals. She is now having loose watery diarrhea. Patient apparently A+O x 3 to nursing staff today. Social work seeing patient for APS. 06/22/2024 Patient seen and examined at while walking with PT. Patient has continued to speak nonsensically. She is A+O x 1 to person. Neurology following closely, patient not eligible for transfer to [facility]. 06/23/2024 Patient seen and examined at bedside. No acute events overnight. Patient has continued to speak nonsensically. She is A+O x 1 to person. Neurology closely following patient's mental status. REVIEW OF SYSTEMS: Unable to fully assess due to encephalopathy. PHYSICAL EXAMINATION: Vitals reviewed GENERAL: Lethargic, no acute distress. HENT: Normocephalic, multiple bruises on forehead, dentures CARDIOVASCULAR: S1 and S2 present. No murmurs, rubs, or gallops. PULMONARY: Chest is clear to auscultation, no wheezing, rhonchi, or crackles. ABDOMEN: Soft, nontender, nondistended. No palpable organomegaly. EXTREMITIES: No apparent cyanosis, clubbing. No pedal edema. NEUROLOGICAL: Alert and oriented x1. Gross neurological examination with no apparent focal deficits. SKIN: Multiple excoriations on legs, multiple bruises Today significant findings: Labssodium 137, chloride 108, creatinine 0.46, magnesium 1.6 No new imaging Assessment and plan Patient is a 68-year-old female with hypertension, seizures, depression, hyperlipidemia, history of CVA, alcohol use disorder, polysubstance abuse, hepatitis C, COPD, who presents with altered mental status and rib and vertebrae fracture. #Toxic encephalopathy, likely due to drug use #Polysubstance abuse #History of seizures - Initial urine drug screening findings of opioids, TCA and marijuana, serum alcohol 15 EEG reviewed Continue with Vimpat 200 mg twice daily Continue Keppra 1500 mg twice daily Continue Dilantin 200 mg every 12 hours Neurology following #Hypokalemia, resolved #Hyponatremia, resolved #Hypomagnesemia, resolved - Initial potassium 2.5, Mg 1.2 Given potassium chloride - Given magnesium sulfate Monitor CMP #Vertebral body compression fracture of L1 #Multiple rib fractures #Fall - Pain management Brace recommended by orthopedic surgery with conservative management Orthopedic surgery following PT OT following Pulmonology following #Alcohol dependence with withdrawal #Alcohol withdrawal seizures - CIWA protocol with Ativan IVP in place Daily thiamine and folic acid - Fall and seizure precautions monitor daily electrolytes - cardiac monitoring - foster care social worker consult #A-fib RVR likely due to alcohol, new onset #Elevated troponin, likely type II IL secondary to oxygen supply/demand mismatch - continuous cardiac monitoring - echocardiogram reviewed - Continue metoprolol succinate 12.5mg daily - Poor candidate for anticoagulation, will hold off at this time. - TSH WNL Cardiology following #Bicytopenia, likely due to alcohol use #History of liver cirrhosis Initial hemoglobin 10.1, platelets 91 - Monitor CBC #Fever, resolved #Mild leukopenia Tmax 100.3 F on admission, afebrile today Not on biotics Monitor CBC #Urinary retention, resolved Chronic Medical Conditions #Seizures #Depression #Hyperlipidemia #Hypertension - Resume home medications F: P.o. E: Replete as needed N: Heart healthy diet Code status: Full code Dr. Higgins seen patient with resident, present during exam, and agreed with findings. Dictation was produced using [employer] dictation software. Please excuse any grammatical, word or spelling errors. Objective - Vital Signs Vital signs: Vital Signs Temp 98.1 F 06/23/24 03:02 Pulse 68 06/23/24 03:02 Resp 16 06/23/24 03:02 BP 119/65 06/23/24 03:02 Pulse Ox 98 06/23/24 03:02 FiO2 Intake & Output 06/22/24 06/23/24 06/23/24 18:59 06:59 18:59 Intake Total 500 Balance 500 Weight 63.6 kg Intake: IV 20 Invasive Line 4 10 Invasive Line 5 10 Oral 480 Other: Voiding Method Diaper Diaper Incontinent Incontinent # Voids 2 - Labs CBC & Chem 7: 06/22/24 05:33 06/23/24 05:39 Labs: Abnormal Lab Results - Last 24 Hours (Table) 06/23/24 Range/Units 05:39 Chloride 108 H (98-107) mmol/L Creatinine 0.46 L (0.52-1.04) mg/dL Microbiology - Last 24 Hours (Table) 06/19/24 01:52 Blood Culture - Preliminary Blood
[2024-06-23] MEDS: MAGNESIUM SULFATE-D5W PMX 1 GM in DEXTROSE/WATER 1 100ML.BAG IVPB ONE (12:21)
[2024-06-23 13:15] LABS: % Iron Saturation 11.56 (12.00-45.00); Iron 34 UG/DL (50-170); Total Iron Binding Capacity 294 UG/DL (228-460)
[2024-06-24] MEDS: ONDANSETRON 4 MG/2 ML VIAL IVP PRN (05:00)
[2024-06-24 07:40] LABS: African American GFR (CKD) >90 (>60 ml/min/1.73 sqM); Anion Gap 5 mmol/L; Blood Urea Nitrogen 11 mg/dL (7-17); Carbon Dioxide 25 mmol/L (22-30); Chloride 106 mmol/L (98-107); Glucose 95 mg/dL (74-99); Potassium 4.1 mmol/L (3.5-5.1); Sodium 136 mmol/L (137-145)
[2024-06-24 07:41] LABS: Calcium 8.3 mg/dL (8.4-10.2); Magnesium 1.6 mg/dL (1.6-2.3); Non-African American GFR(CKD) >90 (>60 ml/min/1.73 sqM)
--- NOTE | 2024-06-24 07:43 | P.PN ---
Subjective Progress Note Date: 06/23/24 06/23/2024: Patient was seen for follow-up. Per nursing report, patient is best when she wakes up in the morning or after sleep. Slowly she started getting more confused, slurring, starts nonsensical and then goes to sleep. She is going through these cycles. Patient at present somnolent. 06/22/2024: Patient was seen for follow-up. A sitter is also present by the bedside. Patient admits to having headache. Patient is still very confused, talking nonsensical speech. No obvious seizures have been witnessed by the family or the nursing staff. 06/21/2024: Patient was seen for follow-up. Sitter was also present. Per nursing report patient was doing better earlier, fully oriented, but sometimes would have garbled speech word salad. She was scoring 14 on CIWA, therefore the nurse has just given her Ativan 1 mg IV. Now she is asleep. No obvious seizure-like activity has been noticed. On my review, there is some rhythmic movement of the right leg, which is possibly wall entry, as patient stops it when recommended. 06/20/2024: Patient was seen for a follow-up. Patient just returned from EEG department after prolonged EEG. Per sitter, patient has been sleeping all day. Now just waking up. Patient's daughter also arrived, who notices that patient is doing better than yesterday. Patient denies headache. No new concerns. I talked to [facility] transfer team (06/21/2024) and informed all the current status of the patient. Spent 11 minutes. I then talked to the Neuro-scientific recruiter at [facility] Dr. Connor in detail. She did review patient's records from previous admissions. She men tioned that patient has history of polysubstance abuse and medication noncompliance as she has been transferred to [facility] multiple times for similar episodes, or triggered by some sort of intoxication. Last episode was in February 2024. Her examination seems similar to what I described to her as "nonsensical speech and transient altered mental status". She had an EEG multiple times which consistently showed no correlate to these episodes just encephalopathy and LPDs. They did not treat the LPDs and she eventually improved. During one hospitalization she was on Vimpat, Keppra and Depakote, but February admission she was discharged on Keppra 2 g twice a day and Vimpat 200 mg twice a day. Her LP was normal and same with the MRI and vessel imaging. At this point, she would not escalate therapy, as treating her known LPDs is only going to make her more confused. She has significant cortical atrophy for 68-year-old which is likely due to her substance abuse but her cerebral reserve is just that much lower and will take longer to recover. [facility] declined to accept her. Objective - Vital Signs Vital signs: Vital Signs Temp 98.5 F 06/23/24 12:25 Pulse 61 06/23/24 12:25 Resp 18 06/23/24 12:25 BP 105/65 06/23/24 12:25 Pulse Ox 98 06/23/24 12:25 FiO2 Intake & Output 06/22/24 06/23/24 06/23/24 18:59 06:59 18:59 Intake Total 500 510 Balance 500 510 Weight 63.6 kg Intake: IV 20 30 Invasive Line 4 10 Invasive Line 5 10 30 Oral 480 480 Other: Voiding Method Diaper Diaper Diaper Incontinent Incontinent Incontinent # Voids 2 1 - Exam Patient is somnolent, and this time. She continues to be confused per nursing staff. No obvious seizure-like activity noted at this time. - Labs CBC & Chem 7: 06/22/24 05:33 06/23/24 05:39 Labs: Abnormal Lab Results - Last 24 Hours (Table) 06/23/24 06/23/24 Range/Units 05:39 07:45 Chloride 108 H (98-107) mmol/L Creatinine 0.46 L (0.52-1.04) mg/dL Iron 34 L (50-170) UG/DL % Saturation 11.56 L (12.00-45.00) Delta Bilirubin 0.4 H (0.0-0.2) mg/dL Total Protein 5.9 L (6.3-8.2) g/dL Albumin 2.9 L (3.5-5.0) g/dL Microbiology - Last 24 Hours (Table) 06/19/24 01:52 Blood Culture - Preliminary Blood Assessment and Plan Assessment: * Altered mental status, likely due to partial status epilepticus versus metabolic encephalopathy. Rule out hepatic encephalopathy. * Abnormal EEG with LPDs involving left hemispheric region * History of alcoholism, blood alcohol level borderline 15. * Probable alcohol withdrawal/DTs. * History of polysubstance abuse * Chronic tobacco use * History of seizure disorder * Severe hypokalemia * Hypomagnesemia * Recurrent falls * Acute L1 vertebral body compression fracture 25% height loss * Acute/subacute fractures of the right anterior ribs 2 and 3 and posterior- lateral left rib 11. * Atrial fibrillation with rapid ventricular rate * Possible hepatic cirrhosis noted on CT abdomen Plan: * Patient continues to be delirious, confused, with fluctuating mental status. * Patient's blood test shows normal hepatic panel, ammonia 10, Dilantin level 9.7. Await Keppra level * Although ammonia is normal, but she may have some component of hepatic encephalopathy. Suggest starting lactulose. * Routine EEG 06/22/2024, was abnormal due to background slowing, suggestive of moderate encephalopathy. Presence of lateralized periodic discharges(LPDs) involving the left hemispheric region, which appears to have decrease in frequency and amplitude as compared to the studies from yesterday. No obvious epileptic seizure was recorded. Clinical correlation is strongly recommended. * Routine EEG 06/21/2024 showing continued presence of periodic lateralized a platform discharges over the left hemispheric region, although they have much improved, less aggressive, lower amplitude and not as regular. Some improvement in the background activity seen. Still overall background slowing of moderate degree. Clinical correlation and repeat EEG recommended, if clinically indicated. * Prolonged EEG 06/20/2024 was again abnormal due to presence of periodic lateralized epileptiform discharges over the left hemispheric region at 1 Hz. Background slowing of moderate to severe degree, suggestive of encephalopathy. When compared to the EEG from 06/19/2024, the amplitude of the epileptiform activity has decreased (improved). Follow-up EEG and perhaps continuous EEG monitoring recommended. * Initial EEG 06/19/2024 was severely abnormal due to presence of continuous, periodic lateralized epileptiform discharges at 1 Hz involving the left hemispheric region, suggestive of focal cortical neuronal dysfunction with underlying cortical irritability and tendency for seizures. Partial status epilepticus cannot be ruled out. Clinical correlation is recommended. Background slowing, suggestive of moderate to severe encephalopathy. Follow- up EEG and continuous EEG monitoring recommended. * Patient apparently on Dilantin, Keppra and Vimpat. Her Dilantin level today is 9.7. * I spoke to patient's daughter, who mentioned that patient was transferred to [facility] after last admission in February 2024. They performed lumbar puncture on her. Patient had continuous EEG monitoring. Patient was discharged home in a cab. Patient's daughter was not satisfied with the disposition. * 2-D echo revealed normal LV EF 60-65%. Mild concentric LVH. No obvious regional wall motion abnormality. Moderate left atrial dilation. * Cardiology, pulmonary, orthopedic surgery also on board. * I spoke to patient's daughter, who mentions that when she had entered patient's home, there were about 6 bottles of Rum in her house. Some of them are completely empty, some of them were partly empty. She found one bottle in the laundry basket, and one in the kitchen and in different parts of the ai se. She believes that patient has been drinking heavily only for about 6 to to 7 days. She was drinking at least 1 pint of rum a day. She had her own apartment but she was kicked out. She is currently renting a room in her sister's house. * I suspect current patient's condition related to withdrawal of either substance use, alcohol.
--- NOTE | 2024-06-24 09:31 | P.PN ---
Subjective Progress Note Date: 06/24/24 Principal diagnosis: Rib fracture. Patient is a 68-year-old female with past medical history significant for COPD, tobacco smoker, alcoholism, liver disease, hepatitis C, polysubstance abuse, seizure disorder. Currently, patient is altered and unable to provide useful information. No family present. Note that back in February, patient worked up for altered mental status, seizures, and possible encephalitis. She ended up being transferred to [facility] for continuous EEG monitoring. More recently, patient evaluated the emergency department on 06/14/24 after fall down the stairs. Patient presented back to the emergency department yesterday evening. Per the ER report noticed to be confused by family. Also, noted to have low-grade temps in the emergency department. Pulmonary consult was placed as the patient was found to have multiple rib fractures. CT of the chest, abdomen, pelvis with contrast showing acute/subacute fractures of the right anterior ribs 2 and 3 and posterior lateral left rib 11. Acute L1 vertebral compression fracture with 25% height loss, no significant retropulsion or spinal canal or neural for minimal stenosis. Similar right upper lobe airspace opacity. CT of the head and C-spine without contrast did not show any acute intracranial process. No evidence of cervical spine fracture. Nonspecific white matter changes, likely secondary to chronic small vessel ischemic disease. CBC: WBC count 8.3, hemoglobin 10.1, platelets 91,000. INR 1.2, APTT 22.4. CMP: Sodium 132, potassium 2.5, chloride 98, serum bicarb 24, BUN 17, creatinine 0.62, glucose 103. Normal saline infusing at 130 mL/h. Lactic 3 and down to 1. LFTs unremarkable. Total bilirubin 2.6. Troponin 0.26. Creatinine kidney is 485. Urinalysis fairly unremarkable. Negative leukocytes and nitrates. Urine toxicology screen positive for opiates, TCAs, and marijuana. Serum alcohol level 15. Patient currently being evaluated emergency department. According to nursing staff, experiencing some urinary retention with a total of 700 cc of urine found in the bladder with bladder ultrasound. Patient has been straight cathed x 1. She is currently awake with nonsensical speech pattern. Facial spasms or seizure activity and eye blinking. Terminated with one 1 mg Ativan IV push. History of seizures, maintained on Keppra on outpatient basis. Patient also previously noted to be in atrial fibrillation with rapid ventricular response, rate as high as 185 bpm. Previously loaded with 10 mg of IV Cardizem, and started on Cardizem which is infusing at 10 mg/h. Blood pressure is normotensive. No documented history of atrial fibrillation in EMR. As far as her pulmonary status, nonlabored breathing pattern. On room air. No crepitus or subcutaneous emphysema. No focal tenderness with palpation. Multiple bruising at various stages of healing. Chin laceration. Current vital signs: Temperature 100.1 F, heart rate 87 bpm, blood pressure 112/65 mmHg, nontachypneic, SpO2 reading 97% on room air. Progress note dated June 20, 2024. 68-year-old patient seen yesterday in consultation. She is seen today in room 352. She is awake and alert. No distress. She is on room air. She is getting saline at 20 cc an hour. She has a history of multiple medical problems including COPD, tobacco use, alcoholism, alcoholic liver disease, hepatitis C, polysubstance abuse, and seizure disorder. The patient was seen recently for bilateral rib fractures. Current laboratory data includes a white count of 4.5, hemoglobin 8.6, hematocrit 25.7, and a platelet count of 80,000. Sodium 134, potassium 3.6, chlorides 107, CO2 23, BUN 8, creatinine 0.48. Glucose is 95. Progress note dated June 21, 2024. 68-year-old female seen today in room 352. The patient is alert, but really not speaking anything sensible at this point. She is currently on room air. She is not receiving any IV fluids. She apparently fell at home, and fractured ribs both, on the right side and left side. White count 5.4, hemoglobin 9.3, hematocrit 28.4, and platelet count 138,000. Sodium 136, potassium 4.2, chlorides 109, CO2 22, BUN 12, creatinine 0.58. Glucose is 97. Calcium 8.4, magnesium 1.4. Progress note dated June 22, 2024. 68-year-old female seen in room 354. The patient is currently resting comfortably in bed. She is on room air. She is not receiving any IV fluids. The patient recently had an EEG, and those results are currently pending. [facility] laboratory data includes a white count of 3.8, hemoglobin 9.4, hematocrit 28.1, and platelet count 154,000. Sodium 137, potassium 3.5, chlorides 110, CO2 24, BUN 6, creatinine 0.49. Calcium is 8.5. Magnesium is 1.4. Progress note dated June 23, 2024. 68-year-old female again seen in room 354. There is a sitter in the room with the patient. She is currently sleeping. She appears in no distress. She is on room air. She is not requiring any fluids. According to nursing, the patient had an uneventful night. Laboratory data includes a sodium 137, potassium 3.9, chloride 108, CO2 23, anion gap 6, BUN 9, and creatinine 0.46. Progress note dated June 24, 2024. 68-year-old female seen today in room 354. She remains about the same. She is on room air. No IV fluids. There have been no major changes in her health. She denies any respiratory issues, or issues with blood pressure, chest pain, etc. Current labs include a sodium 136, potassium 4.1, chlorides 106, CO2 25, anion gap 5, BUN 11, and creatinine 0.57. Glucose is 95. Calcium 8.3, and magnesium 1.6. Objective - Vital Signs Vital signs: Vital Signs Temp 98.1 F 06/24/24 09:14 Pulse 65 06/24/24 09:14 Resp 18 06/24/24 09:14 BP 117/67 06/24/24 09:14 Pulse Ox 98 06/24/24 09:14 FiO2 Intake & Output 06/23/24 06/24/24 06/24/24 18:59 06:59 18:59 Intake Total 750 260 Balance 750 260 Weight 68.5 kg Intake: IV 30 20 Invasive Line 5 30 20 Oral 720 240 Other: Voiding Method Diaper Diaper Incontinent Incontinent # Voids 1 1 - Exam No acute distress, confused. No respiratory distress, currently on room air. HEENT examination is grossly unremarkable. Mucous membranes are moist. No oral lesions. Neck supple. Full range of motion. No adenopathy thyromegaly or neck vein distention. Cardiovascular examination reveals regular rhythm rate. S1-S2 normal. No S3 or S4. No discernible murmur noted. Lungs reveal clear breath sounds. Her sounds are equal bilaterally. No adventitious lung sounds including wheezes rhonchi or crackles. Abdomen soft bowel sounds are heard. No masses or tenderness. Extremities are intact. No cyanosis clubbing or edema. Skin is without rash or lesion. Neurologic examination is brief but nonfocal. - Labs CBC & Chem 7: 06/22/24 05:33 06/24/24 06:11 Labs: Abnormal Lab Results - Last 24 Hours (Table) 06/23/24 06/24/24 Range/Units 05:39 06:11 Sodium 136 L (137-145) mmol/L Calcium 8.3 L (8.4-10.2) mg/dL Iron 34 L (50-170) UG/DL % Saturation 11.56 L (12.00-45.00) Assessment and Plan Assessment: Acute/subacute fractures involving right anterior ribs 2 and 3 and posterior lateral left rib 11. Persistent right upper lobe infiltrate, seen on previous chest x-rays dating back to 2019. Acute L1 vertebral compression fracture, with 25% height loss. Atrial fibrillation with rapid ventricular response. Elevated troponins, likely secondary to above and supply/demand mismatch. Acute febrile illness, without obvious infectious source identified. Altered mental status. Seizure disorder. Alcohol abuse. Polysubstance abuse, urine toxicology screen positive for opiates, TCAs, and marijuana. History of liver cirrhosis. History of hepatitis C. Chronic thrombocytopenia, likely secondary to above. Normocytic, normochromic anemia. Severe hypokalemia. Hypertension. History of hyperlipidemia. COPD, currently stable. Current ongoing tobacco dependence. History of frequent falls. Urinary retention. Plan: Plan dated June 20, 2024. The patient is doing about the same. Her pulmonary status is stable. She is on room air. She has bilateral rib fractures. All labs, x-rays, and medications are reviewed. We will continue to follow. Prognosis is guarded. Dictation was produced using [employer] software. Please excuse any grammatical, word or spelling errors. Plan dated June 21, 2024. The patient is stable from the pulmonary standpoint. She is on room air. She is not complaining of any shortness of breath or difficulty breathing. In addition, there is no evidence of cough, wheezing, chest tightness, or phlegm production. Labs, x-rays, and all medications are reviewed. We will continue to follow the patient, make recommendations. Prognosis is guarded. She remains a full code. Dictation was produced using [employer] software. Please excuse any grammatical, word or spelling errors. Plan dated June 22, 2024. The patient continues to do well from the pulmonary standpoint. She denies any pulmonary complaints including shortness of breath, cough, wheezing, chest tightness, or phlegm production. We will continue to follow make recommendations. Prognosis is guarded. The patient did have an EEG, those results are currently pending. We will continue to follow. The patient was physically seen and examined. Labs, x-rays, and medications were reviewed. The assessment, plan and medical decision making was determined by me. Plan dated June 23, 2024. The patient appears to be doing reasonably well. She is resting comfortably in bed. No acute distress. She had an uneventful night. She is currently on room air. She is not requiring any supplemental fluids. All labs, x-rays, and medications are reviewed. We will continue to follow. Prognosis is guarded. Dictation was produced using [employer] software. Please excuse any grammatical, word or spelling errors. Plan dated June 24, 2024. The patient is seen today in room 354. She remains on room air. No IV fluids are running. Labs x-rays, and all medications are reviewed. Clinically, the patient is stable. She continues to be confused from time to time. Discharge planning underway. We will continue to follow. Dictation was produced using [employer] software. Please excuse any grammatical, word or spelling errors. Time with Patient: Less than 30
--- NOTE | 2024-06-24 15:09 | P.PN ---
Subjective Progress Note Date: 06/24/24 06/24/2024: Patient was seen for follow-up. Patient is today fully alert and awake, in no distress. She is very interactive. Please refer to examination below. Offers no complaints. Very pleasant. 06/23/2024: Patient was seen for follow-up. Per nursing report, patient is best when she wakes up in the morning or after sleep. Slowly she started getting more confused, slurring, starts nonsensical and then goes to sleep. She is going through these cycles. Patient at present somnolent. 06/22/2024: Patient was seen for follow-up. A sitter is also present by the bedside. Patient admits to having headache. Patient is still very confused, talking nonsensical speech. No obvious seizures have been witnessed by the family or the nursing staff. 06/21/2024: Patient was seen for follow-up. Sitter was also present. Per nursing report patient was doing better earlier, fully oriented, but sometimes would have garbled speech word salad. She was scoring 14 on CIWA, therefore the nurse has just given her Ativan 1 mg IV. Now she is asleep. No obvious seizure-like activity has been noticed. On my review, there is some rhythmic movement of the right leg, which is possibly wall entry, as patient stops it when recommended. 06/20/2024: Patient was seen for a follow-up. Patient just returned from EEG department after prolonged EEG. Per sitter, patient has been sleeping all day. Now just waking up. Patient's daughter also arrived, who notices that patient is doing better than yesterday. Patient denies headache. No new concerns. I talked to [facility] transfer team (06/21/2024) and informed all the current status of the patient. Spent 11 minutes. I then talked to the Neuro-pct at [facility] Dr. Connor in detail. She did review patient's records from previous admissions. She mentioned that patient has history of polysubstance abuse and medication non compliance as she has been transferred to [facility] multiple times for similar episodes, or triggered by some sort of intoxication. Last episode was in February 2024. Her examination seems similar to what I described to her as "nonsensical speech and transient altered mental status". She had an EEG multiple times which consistently showed no correlate to these episodes just encephalopathy and LPDs. They did not treat the LPDs and she eventually improved. During one hospitalization she was on Vimpat, Keppra and Depakote, but February admission she was discharged on Keppra 2 g twice a day and Vimpat 200 mg twice a day. Her LP was normal and same with the MRI and vessel imaging. At this point, she would not escalate therapy, as treating her known LPDs is only going to make her more confused. She has significant cortical atrophy for 68-year-old which is likely due to her substance abuse but her cerebral reserve is just that much lower and will take longer to recover. [facility] declined to accept her. Records from [facility]: CTA of head and neck, and CTV head and neck 02/22/2024 showed focal cervical and intracranial atherosclerosis contributing to moderate stenosis of the right vertebral artery origin, mild stenosis of the right carotid bulb and mild to moderate segmental narrowing of the right parasellar ICA. Patent dural and jeannie or cortical veins within the limits of suboptimal bolus timing. MRI of the brain without contrast 02/18/2024 was incomplete nondiagnostic exam. Motion degraded T2 flair weighted images demonstrate no midline shift, herniation or sizable extra-axial fluid collection. No suspicious intracranial mass. MRI of the cervical spine 02/20/2024 was incomplete and near nondiagnostic and needs to be repeated. There is probably too high signal intensity within the cord at C4-5 which may relate to compressive myelopathy. There is severe cord compression present at this level with moderate to severe compression at C3-4 and moderate compression at C6-7. Cord signal abnormality. Orthopedics saw the patient, no urgent or emergent surgical indication at this time. Recommend outpatient follow-up with nonop spine for evaluation of her chronic myelopathy. Continuous EEG monitoring 02/16/2024 and 02/17/2024 revealed LPD's arising from the mid and posterior temporal and parietal temporal region of the left hemisphere. It was felt patient has multiple reasons for seizures including substance abuse, alcohol withdrawal, however the left focal temporal sharps are concerning for underlying epileptic focus of undetermined etiology. Patient was admitted to [facility] in January 2020 for after being found down by her roommate and intubated for airway protection. EEG at that time showed LPD's over the left side suggestive of nonconvulsive status epilepticus. She was started on Keppra and Depakote at that time. CSF was normal. Patient was alert and oriented x 1 prior to DC to subacute rehab. Due to decline in speech 02/21/2025, repeated long-term monitoring showed left temporal sharps seen on previous EEG but no seizures or epileptiform abnormalities. Low likelihood of HSV, stopped acyclovir. They recommended to continue Keppra 2 g twice a day and Vimpat 200 mg twice a day. Epilepsy follow- up requested. Recommended to continue Lipitor 40 mg, aspirin 81 mg. They belie ve there was no clinical indication to resume Plavix. On examination patient was markedly encephalopathic with nonsensical speech, some echolalia, no focal neurologic deficit. Depakote was discontinued and the patient was continued on Keppra 2 g twice a day and Vimpat 200 mg twice a day. Patient was recommended to follow-up with Dr. Hubbard in epilepsy clinic on 03/30/2024. She was discharged on Vimpat 200 mg twice daily and Keppra [address] cervical spine at OSH showed atlantoaxial joint subluxation that may be chronic/degenerative. Objective - Vital Signs Vital signs: Vital Signs Temp 98.3 F 06/24/24 11:03 Pulse 58 L 06/24/24 11:03 Resp 18 06/24/24 11:03 BP 132/80 06/24/24 11:03 Pulse Ox 99 06/24/24 11:03 FiO2 Intake & Output 06/23/24 06/24/24 06/24/24 18:59 06:59 18:59 Intake Total 750 260 10 Balance 750 260 10 Weight 68.5 kg Intake: IV 30 20 10 Invasive Line 5 30 20 Invasive Line 6 10 Oral 720 240 Other: Voiding Method Diaper Diaper Toilet Incontinent Incontinent Diaper Incontinent # Voids 1 1 - Exam Patient is today fully alert and awake. Patient continues to have fluent aphasia. She states is the month of December and the year is 2025. She states that she is at work. Then she said that she is in a building that goes to doctors office. She knows that she is in [facility]. When I asked about the president, patient states "[facility]". She then perseverates on "[id number]", and started speaking gibberish. She cannot repeat. She was able to name ink pen, but had multiple attempts before she could say "sunglasses", although they were normal glasses. When I asked her to point to the door (on her left side), she says "[address] "Baljit Dionte". She was not able to point to the window which is on her right side. Her strength is normal. Face is symmetric. - Labs CBC & Chem 7: 06/22/24 05:33 06/24/24 06:11 Labs: Abnormal Lab Results - Last 24 Hours (Table) 06/24/24 Range/Units 06:11 Sodium 136 L (137-145) mmol/L Calcium 8.3 L (8.4-10.2) mg/dL Microbiology - Last 24 Hours (Table) 06/19/24 01:52 Blood Culture - Final Blood Assessment and Plan Assessment: * Altered mental status, likely due to partial status epilepticus versus metabolic encephalopathy. Rule out hepatic encephalopathy. * Abnormal EEG with LPDs involving left hemispheric region * History of alcoholism, blood alcohol level borderline 15. * Probable alcohol withdrawal/DTs. * History of polysubstance abuse * Chronic tobacco use * History of seizure disorder * Severe hypokalemia * Hypomagnesemia * Recurrent falls * Acute L1 vertebral body compression fracture 25% height loss * Acute/subacute fractures of the right anterior ribs 2 and 3 and posterior- lateral left rib 11. * Atrial fibrillation with rapid ventricular rate * Possible hepatic cirrhosis noted on CT abdomen Plan: * Patient today is fully alert and awake, but continues to be quite confused, with gibberish speech as time, perseveration, and anomia, difficulty with comprehension. * Patient's blood test shows normal hepatic panel, ammonia 10, Dilantin level 9.7. Await Keppra level * Although ammonia is normal, but she may have some component of hepatic encephalopathy. Suggest starting lactulose. * Routine EEG 06/22/2024, was abnormal due to background slowing, suggestive of moderate encephalopathy. Presence of lateralized periodic discharges(LPDs) involving the left hemispheric region, which appears to have decrease in frequency and amplitude as compared to the studies from yesterday. No obvious epileptic seizure was recorded. Clinical correlation is strongly recommended. * Routine EEG 06/21/2024 showing continued presence of periodic lateralized a platform discharges over the left hemispheric region, although they have much improved, less aggressive, lower amplitude and not as regular. Some improvement in the background activity seen. Still overall background slowing of moderate degree. Clinical correlation and repeat EEG recommended, if clin ically indicated. * Prolonged EEG 06/20/2024 was again abnormal due to presence of periodic lateralized epileptiform discharges over the left hemispheric region at 1 Hz. Background slowing of moderate to severe degree, suggestive of encephalopathy. When compared to the EEG from 06/19/2024, the amplitude of the epileptiform activity has decreased (improved). Follow-up EEG and perhaps continuous EEG monitoring recommended. * Initial EEG 06/19/2024 was severely abnormal due to presence of continuous, periodic lateralized epileptiform discharges at 1 Hz involving the left hemispheric region, suggestive of focal cortical neuronal dysfunction with underlying cortical irritability and tendency for seizures. Partial status epilepticus cannot be ruled out. Clinical correlation is recommended. Background slowing, suggestive of moderate to severe encephalopathy. Follow- up EEG and continuous EEG monitoring recommended. * Patient apparently on Dilantin, Keppra and Vimpat. Her Dilantin level is 9.7. * I spoke to patient's daughter, who mentioned that patient was transferred to [facility] after last admission in February 2024. They performed lumbar puncture on her. Patient had continuous EEG monitoring. Patient was discharged home in a cab. Patient's daughter was not satisfied with the disposition. * 2-D echo revealed normal LV EF 60-65%. Mild concentric LVH. No obvious regional wall motion abnormality. Moderate left atrial dilation. * Cardiology, pulmonary, orthopedic surgery also on board. * I spoke to patient's daughter, who mentions that when she had entered patient's home, there were about 6 bottles of Rum in her house. Some of them are completely empty, some of them were partly empty. She found one bottle in the laundry basket, and one in the kitchen and in different parts of the house. She believes that patient has been drinking heavily only for about 6 to to 7 days. She was drinking at least 1 pint of rum a day. She had her own apartment but she was kicked out. She is currently renting a room in her sister's house. * I suspect current patient's condition related to withdrawal of either substanc e use, alcohol. Uncertain if some component of hepatic encephalopathy, although ammonia level is normal. Consider starting lactulose. * Repeat EEG in the morning. * Dr. Bigg Michele to resume neurology service in the morning.
[2024-06-24 15:56] VITALS: RESP 16
[2024-06-24] MEDS ORDERED: Magnesium Replacement Protocol 1 EACH MISC MISCELLANE PRN (16:32)
[2024-06-24] MEDS: MAGNESIUM SULFATE-D5W PMX 1 GM in DEXTROSE/WATER 1 100ML.BAG IVPB SCH (16:48)
--- NOTE | 2024-06-24 17:51 | P.PN ---
Subjective Progress Note Date: 06/24/24 CHIEF COMPLAINT: Status post fall HISTORY OF PRESENT ILLNESS: The patient is a 68-year-old female with history of status post fall. She has multiple subacute acute injuries including bilateral rib fractures and lumbar compression fracture. She is awake and alert sitting up in bed. She just had dinner. Patient reports not recalling when was her last bowel movement. Documented records demonstrated 06/22/2024. She reports new bilateral lower abdominal pain. She still has one-to-one sitter. She is much more awake and alert since her entire admission. ROS: No reports of nausea and vomiting. No fevers or chills. No new chest pain. PHYSICAL EXAM: VITAL SIGNS: Reviewed CONSTITUTIONAL: Well developed and in no acute distress. EYES: Conjuctivae without sclera icterus. Extraocular movements grossly intact. HEAD, EARS, NOSE, THROAT: Moist buccal mucosa. Hears conversational speech. No nasal drainage. RESPIRATORY: Non-labored respirations and equal bilateral excursions. CARDIOVASCULAR: Palpable 2+ radial pulses. ABDOMEN: No peritonitis. Tender bilateral lower abdomen. MUSCULOSKELETAL: No gross deformity of the lower extremities noted. No clubbing. No cyanosis. SKIN: Good skin turgor. Well perfused. Resolved bruising along the bilateral extremities NEUROLOGIC: Cranial nerves II through XII grossly intact. No focal or lateralizing signs. PSYCH: Appropriate affect. Alert to self place time. CLINICAL LABS: Reviewed. Iron stores demonstrates low iron. Hemoglobin less than 10.0. ASSESSMENT: 1. Status post fall 2. Traumatic bilateral rib fractures 3. Vertebral fracture, acute/traumatic 4. Alcohol abuse disorder 5. Anemia 6. Iron deficiency anemia 7. Constipation PLAN: 1. Will start Ferrlecit for iron deficiency anemia. 2. Patient reports constipation. Will give singular dose of lactulose and milk of magnesia with routine bowel regimen with lactulose. Dictation was produced using [employer] dictation software. Please excuse any grammatical, word or spelling errors. Objective - Vital Signs Vital signs: Vital Signs Temp 98.2 F 06/24/24 15:54 Pulse 63 06/24/24 15:54 Resp 16 06/24/24 15:54 BP 149/78 06/24/24 15:54 Pulse Ox 100 06/24/24 15:54 FiO2 Intake & Output 06/23/24 06/24/24 06/24/24 18:59 06:59 18:59 Intake Total 750 260 368 Balance 750 260 368 Weight 68.5 kg Intake: IV 30 20 10 Invasive Line 5 30 20 Invasive Line 6 10 Oral 720 240 358 Other: Voiding Method Diaper Diaper Toilet Incontinent Incontinent Diaper Incontinent # Voids 1 1 3 - Labs CBC & Chem 7: 06/22/24 05:33 06/24/24 06:11 Labs: Abnormal Lab Results - Last 24 Hours (Table) 06/24/24 Range/Units 06:11 Sodium 136 L (137-145) mmol/L Calcium 8.3 L (8.4-10.2) mg/dL Microbiology - Last 24 Hours (Table) 06/19/24 01:52 Blood Culture - Final Blood
[2024-06-24] MEDS: LACTULOSE 20 GM/30 ML CUP PO STA (18:06)
[2024-06-24] MEDS: SODIUM FERRIC GLUCONAT-SUCROSE 125 MG in SODIUM CHLORIDE 0.9% 100 ML IVPB SCH (18:06)
[2024-06-24] MEDS: MAGNESIUM HYDROXIDE 2,400 MG/30 ML CUP PO STA (18:06)
--- NOTE | 2024-06-24 20:36 | P.PN ---
Subjective Progress Note Date: 06/24/24 Patient is a 68-year-old female with hypertension, seizures, depression, hyperlipidemia, history of CVA, alcohol use disorder, recreational drug use, hepatitis C, COPD, who presents with altered mental status and rib and vertebrae fracture. Patient is poor historian and cannot provide history. No family present. Multiple recent admissions. February, patient worked up for altered mental status, seizures, and possible encephalitis and was transferred to [facility] for continuous EEG monitoring. Also, she evaluated the emergency department on 06/14/24 after fall down the stairs. 06/20/2024 Patient seen and examined at bedside. Remains lethargic, unable to fully assess mental capacity. Patient apparently A+O x 1 to nursing staff today. 06/21/2024 Patient seen and examined at bedside. Remains lethargic after Ativan for active withdrawals. She is now having loose watery diarrhea. Patient apparently A+O x 3 to nursing staff today. Social work seeing patient for APS. 06/22/2024 Patient seen and examined at while walking with PT. Patient has continued to speak nonsensically. She is A+O x 1 to person. Neurology following closely, patient not eligible for transfer to [facility]. 06/23/2024 Patient seen and examined at bedside. No acute events overnight. Patient has continued to speak nonsensically. She is A+O x 1 to person. Neurology closely following patient's mental status. 06/24/2024 Patient is motivated and oriented today. No complaints of chest pain or shortness of breath. No cough or sputum production. Patient has been afebrile pain is controlled. Tolerating oral diet. Patient does have constant observer at bedside. Laboratory data showed sodium 136 potassium 4.1 chloride 106 bicarb is 25 BUN 11 and creatinine 0.57 and blood sugar 95 and magnesium 1.66 replace as per protocol. Patient is also iron deficient and is being supplemented with IV infusion. PHYSICAL EXAMINATION: Vitals reviewed GENERAL: Lethargic, no acute distress. HENT: Normocephalic, multiple bruises on forehead, dentures CARDIOVASCULAR: S1 and S2 present. No murmurs, rubs, or gallops. PULMONARY: Chest is clear to auscultation, no wheezing, rhonchi, or crackles. ABDOMEN: Soft, nontender, nondistended. No palpable organomegaly. EXTREMITIES: No apparent cyanosis, clubbing. No pedal edema. NEUROLOGICAL: Alert and oriented x12. Gross neurological examination with no apparent focal deficits. SKIN: Multiple excoriations on legs, multiple bruises Today significant findings: Labssodium 137, chloride 108, creatinine 0.46, magnesium 1.6 No new imaging Assessment and plan Patient is a 68-year-old female with hypertension, seizures, depression, hyperlipidemia, history of CVA, alcohol use disorder, polysubstance abuse, hepatitis C, COPD, who presents with altered mental status and rib and vertebrae fracture. # Acute metabolic and toxic encephalopathy, likely due to drug use #Polysubstance abuse # Possible partial status epilepticus. - Initial urine drug screening findings of opioids, TCA and marijuana, serum alcohol 15 EEG reviewed Continue with Vimpat 200 mg twice daily Continue Keppra 1500 mg twice daily Continue Dilantin 200 mg every 12 hours Neurology following - Mental status is improving. #Hypokalemia, resolved #Hyponatremia, resolved #Hypomagnesemia - Initial potassium 2.5, Mg 1.2 Replace potassium magnesium as per protocol. Monitor CMP #Vertebral body compression fracture of L1 #Multiple rib fractures #Fall - Pain management Brace recommended by orthopedic surgery with conservative management Orthopedic surgery has seen the patient. PT OT following Pulmonology following #Alcohol dependence with withdrawal #Alcohol withdrawal seizures - CIWA protocol with Ativan IVP in place Daily thiamine and folic acid - Fall and seizure precautions monitor daily electrolytes - cardiac monitoring - outreach and education social worker consult #A-fib RVR likely due to alcohol, new onset #Elevated troponin, likely type II VA secondary to oxygen supply/demand mismatch - continuous cardiac monitoring - echocardiogram reviewed - Continue metoprolol succinate 12.5mg daily - Poor candidate for anticoagulation, will hold off at this time. - TSH WNL Cardiology following #Bicytopenia, likely due to alcohol use #History of liver cirrhosis Initial hemoglobin 10.1, platelets 91 - Monitor CBC #Fever, resolved #Mild leukopenia Tmax 100.3 F on admission, afebrile today Not on biotics Monitor CBC #Urinary retention, resolved Chronic Medical Conditions #Seizures #Depression #Hyperlipidemia #Hypertension - Resume home medications F: P.o. E: Replete as needed N: Heart healthy diet Code status: Full code Objective - Vital Signs Vital signs: Vital Signs Temp 98.3 F 06/24/24 11:03 Pulse 58 L 06/24/24 11:03 Resp 18 06/24/24 11:03 BP 132/80 06/24/24 11:03 Pulse Ox 99 06/24/24 11:03 FiO2 Intake & Output 06/23/24 06/24/24 06/24/24 18:59 06:59 18:59 Intake Total 750 260 10 Balance 750 260 10 Weight 68.5 kg Intake: IV 30 20 10 Invasive Line 5 30 20 Invasive Line 6 10 Oral 720 240 Other: Voiding Method Diaper Diaper Toilet Incontinent Incontinent Diaper Incontinent # Voids 1 1 - Labs CBC & Chem 7: 06/22/24 05:33 06/24/24 06:11 Labs: Abnormal Lab Results - Last 24 Hours (Table) 06/23/24 06/24/24 Range/Units 05:39 06:11 Sodium 136 L (137-145) mmol/L Calcium 8.3 L (8.4-10.2) mg/dL Iron 34 L (50-170) UG/DL % Saturation 11.56 L (12.00-45.00) Assessment and Plan Time with Patient: Greater than 30
[2024-06-25] MEDS: HYDROmorphone 0.5 MG/0.5 ML SYRINGE IVP STA (05:00)
[2024-06-25 06:41] LABS: African American GFR (CKD) >90 (>60 ml/min/1.73 sqM); Anion Gap 6 mmol/L; Blood Urea Nitrogen 9 mg/dL (7-17); Calcium 8.7 mg/dL (8.4-10.2); Carbon Dioxide 27 mmol/L (22-30); Chloride 105 mmol/L (98-107); Glucose 88 mg/dL (74-99); Magnesium 1.8 mg/dL (1.6-2.3); Non-African American GFR(CKD) >90 (>60 ml/min/1.73 sqM); Sodium 138 mmol/L (137-145)
[2024-06-25 07:19] LABS: Basophils # (A) 0.01 10*3/uL (0.00-0.10); Basophils % (A) 0.3 %; Eosinophils # (A) 0.04 10*3/uL (0.04-0.35); Eosinophils % (A) 1.3 %; HCT 28.8 % (37.2-46.3); HGB 9.4 g/dL (12.0-15.0); Lymphocytes # (A) 0.98 10*3/uL (0.90-5.00); Lymphocytes % (A) 31.1 %; MCH 30.1 pg (27.0-32.0); MCHC 32.6 g/dL (32.0-37.0); MCV 92.3 fL (80.0-97.0); Mean Platelet Volume 10.4 fL (9.5-12.2); Monocytes # (A) 0.47 10*3/uL (0.20-1.00); Monocytes % (A) 14.9 %; Neutrophils # (A) 1.64 10*3/uL (1.80-7.70); Neutrophils % (A) 52.1 %; Platelet Count 194 10*3/uL (140-440); RBC 3.12 10*6/uL (4.10-5.20); WBC 3.15 10*3/uL (4.50-10.00)
[2024-06-25] MEDS: LACTULOSE 20 GM/30 ML CUP PO SCH (08:44)
--- NOTE | 2024-06-25 09:16 | P.PN ---
Subjective Progress Note Date: 06/25/24 CHIEF COMPLAINT: Status post fall HISTORY OF PRESENT ILLNESS: The patient is a 68-year-old female with history of status post fall. She has multiple subacute acute injuries including bilateral rib fractures and lumbar compression fracture. Patient had Milk of Magnesia and lactulose. She reports having bowel movements. Her abdominal pain is now resolved. She has a sitter at bedside. Patient has been started on iron infusions. ROS: No reports of nausea and vomiting. No fevers or chills. No new chest pain. PHYSICAL EXAM: VITAL SIGNS: Reviewed CONSTITUTIONAL: Well developed and in no acute distress. EYES: Conjuctivae without sclera icterus. Extraocular movements grossly intact. HEAD, EARS, NOSE, THROAT: Moist buccal mucosa. Hears conversational speech. No nasal drainage. RESPIRATORY: Non-labored respirations and equal bilateral excursions. CARDIOVASCULAR: Palpable 2+ radial pulses. ABDOMEN: Resolved abdominal pain. No peritonitis. MUSCULOSKELETAL: No gross deformity of the lower extremities noted. No clubbing. No cyanosis. SKIN: Good skin turgor. Well perfused. Resolved bruising along the bilateral extremities NEUROLOGIC: Cranial nerves II through XII grossly intact. No focal or lateralizing signs. PSYCH: Appropriate affect. Alert to self place time. CLINICAL LABS: Reviewed. Hemoglobin stable 9.4 ASSESSMENT: 1. Status post fall 2. Traumatic bilateral rib fractures 3. Vertebral fracture, acute/traumatic 4. Alcohol abuse disorder 5. Anemia 6. Iron deficiency anemia 7. Constipation PLAN: 1. Continue bowel regimen with lactulose daily 2. Patient stable for discharge from surgical standpoint when cleared by parts consultant Dictation was produced using [employer] dictation software. Please excuse any grammatical, word or spelling errors. Objective - Vital Signs Vital signs: Vital Signs Temp 98 F 06/25/24 08:00 Pulse 73 06/25/24 08:00 Resp 16 06/25/24 08:00 BP 92/62 06/25/24 08:00 Pulse Ox 98 06/25/24 08:00 FiO2 Intake & Output 06/24/24 06/25/24 06/25/24 18:59 06:59 18:59 Intake Total 368 Balance 368 Weight 65.5 kg Intake: IV 10 Invasive Line 6 10 Oral 358 Other: Voiding Method Toilet Toilet Diaper Diaper Incontinent Incontinent # Voids 3 - Labs CBC & Chem 7: 06/25/24 05:49 06/25/24 05:49 Labs: Abnormal Lab Results - Last 24 Hours (Table) 06/25/24 06/25/24 Range/Units 05:49 05:49 WBC 3.15 L (4.50-10.00) 10*3/uL RBC 3.12 L (4.10-5.20) 10*6/uL Hgb 9.4 L (12.0-15.0) g/dL Hct 28.8 L (37.2-46.3) % Neutrophils # 1.64 L (1.80-7.70) 10*3/uL Creatinine 0.50 L (0.52-1.04) mg/dL Microbiology - Last 24 Hours (Table) 06/19/24 01:52 Blood Culture - Final Blood
[2024-06-25] MEDS ORDERED: DIPHENOX-ATROP 2.5-0.025 MG 1 EACH TAB PO PRN (10:47)
[2024-06-25] MEDS: KETOROLAC 15 MG/ML 1 ML VIAL IVP SCH (12:47)
[2024-06-25 14:07] VITALS: BMI 24.0
--- NOTE | 2024-06-25 14:48 | P.PN ---
Subjective Progress Note Date: 06/25/24 Patient is a 68-year-old female with past medical history significant for COPD, tobacco smoker, alcoholism, liver disease, hepatitis C, polysubstance abuse, seizure disorder. Currently, patient is altered and unable to provide useful information. No family present. Note that back in February, patient worked up for altered mental status, seizures, and possible encephalitis. She ended up being transferred to [facility] for continuous EEG monitoring. More recently, patient evaluated the emergency department on 06/14/24 after fall down the stairs. Patient presented back to the emergency department yesterday evening. Per the ER report noticed to be confused by family. Also, noted to have low-grade temps in the emergency department. Pulmonary consult was placed as the patient was found to have multiple rib fractures. CT of the chest, abdomen, pelvis with contrast showing acute/subacute fractures of the right anterior ribs 2 and 3 and posterior lateral left rib 11. Acute L1 vertebral compression fracture with 25% height loss, no significant retropulsion or spinal canal or neural for minimal stenosis. Similar right upper lobe airspace opacity. CT of the head and C-spine without contrast did not show any acute intracranial process. No evidence of cervical spine fracture. Nonspecific white matter changes, likely secondary to chronic small vessel ischemic disease. CBC: WBC count 8.3, hemoglobin 10.1, platelets 91,000. INR 1.2, APTT 22.4. CMP: Sodium 132, potassium 2.5, chloride 98, serum bicarb 24, BUN 17, creatinine 0.62, glucose 103. Normal saline infusing at 130 mL/h. Lactic 3 and down to 1. LFTs unremarkable. Total bilirubin 2.6. Troponin 0.26. Creatinine kidney is 485. Urinalysis fairly unremarkable. Negative leukocytes and nitrates. Urine toxicology screen positive for opiates, TCAs, and marijuana. Serum alcohol level 15. Patient currently being evaluated emergency department. According to nursing staff, experiencing some urinary retention with a total of 700 cc of urine found in the bladder with bladder ultrasound. Patient has been straight cathed x 1. She is currently awake with nonsensical speech pattern. Facial spasms or seizure activity and eye blinking. Terminated with one 1 mg Ativan IV push. History of seizures, maintained on Keppra on outpatient basis. Patient also previously noted to be in atrial fibrillation with rapid ventricular response, rate as high as 185 bpm. Previously loaded with 10 mg of IV Cardizem, and started on Cardizem which is infusing at 10 mg/h. Blood pressure is normotensive. No documented history of atrial fibrillation in EMR. As far as her pulmonary status, nonlabored breathing pattern. On room air. No crepitus or subcutaneous emphysema. No focal tenderness with palpation. Multiple bruising at various stages of healing. Chin laceration. Current vital signs: Temperature 100.1 F, heart rate 87 bpm, blood pressure 112/65 mmHg, nontachypneic, SpO2 reading 97% on room air. Progress note dated June 20, 2024. 68-year-old patient seen yesterday in consultation. She is seen today in room 352. She is awake and alert. No distress. She is on room air. She is getting saline at 20 cc an hour. She has a history of multiple medical problems including COPD, tobacco use, alcoholism, alcoholic liver disease, hepatitis C, polysubstance abuse, and seizure disorder. The patient was seen recently for bilateral rib fractures. Current laboratory data includes a white count of 4.5, hemoglobin 8.6, hematocrit 25.7, and a platelet count of 80,000. Sodium 134, potassium 3.6, chlorides 107, CO2 23, BUN 8, creatinine 0.48. Glucose is 95. Progress note dated June 21, 2024. 68-year-old female seen today in room 352. The patient is alert, but really not speaking anything sensible at this point. She is currently on room air. She is not receiving any IV fluids. She apparently fell at home, and fractured ribs both, on the right side and left side. White count 5.4, hemoglobin 9.3, hematocrit 28.4, and platelet count 138,000. Sodium 136, potassium 4.2, chlorides 109, CO2 22, BUN 12, creatinine 0.58. Glucose is 97. Calcium 8.4, magnesium 1.4. Progress note dated June 22, 2024. 68-year-old female seen in room 354. The patient is currently resting comfortably in bed. She is on room air. She is not receiving any IV fluids. The patient recently had an EEG, and those results are currently pending. Current laboratory data includes a white count of 3.8, hemoglobin 9.4, hematocrit 28.1, and platelet count 154,000. Sodium 137, potassium 3.5, chlorides 110, CO2 24, BUN 6, creatinine 0.49. Calcium is 8.5. Magnesium is 1.4. Progress note dated June 23, 2024. 68-year-old female again seen in room 354. There is a sitter in the room with the patient. She is currently sleeping. She appears in no distress. She is on room air. She is not requiring any fluids. According to nursing, the patient had an uneventful night. Laboratory data includes a sodium 137, potassium 3.9, chloride 108, CO2 23, anion gap 6, BUN 9, and creatinine 0.46. Progress note dated June 24, 2024. 68-year-old female seen today in room 354. She remains about the same. She is on room air. No IV fluids. There have been no major changes in her health. She denies any respiratory issues, or issues with blood pressure, chest pain, etc. Current labs include a sodium 136, potassium 4.1, chlorides 106, CO2 25, anion gap 5, BUN 11, and creatinine 0.57. Glucose is 95. Calcium 8.3, and magnesium 1.6. 06/25/2024 seeing this patient for a follow-up. She is continuing with the experience on pain which is essentially diffuse and at the same time patient has multiple subacute injuries involving the chest wall in addition to rib fractures on the right 2nd and 3rd and posteriorly on the left 11th rib and an L1 vertebral compression fracture. Her pain is estimated to be 5 out of 10 in severity. No other new complaints otherwise for now. She is resting comfortably in bed and she is on room air oxygen. She is afebrile. Hemodynamically stable. Medications are essentially unchanged. She has on off Toradol. And rest of the home medications have been all resumed. She is receiving IV iron for iron deficiency anemia. The white cell count is at 3.1 with hemoglobin 9.4 and platelet count of 194. Electrolytes are all within normal limits. BUN is at 9 with a creatinine of 0.5. Dilantin level is at 9.7, Keppra level is at 30.8. She is known to have COPD, chronic liver disease, hepatitis C, polysubstance abuse and alcoholism. She also has history of seizure disorders. Objective - Vital Signs Vital signs: Vital Signs Temp 98 F 04/21/25 08:00 Pulse 73 06/25/24 08:00 Resp 16 06/25/24 08:00 BP 92/62 06/25/24 08:00 Pulse Ox 98 06/25/24 08:00 FiO2 Intake & Output 06/24/24 06/25/24 06/25/24 18:59 06:59 18:59 Intake Total 368 Balance 368 Weight 65.5 kg Intake: IV 10 Invasive Line 6 10 Oral 358 Other: Voiding Method Toilet Toilet Diaper Diaper Incontinent Incontinent # Voids 3 - Exam No acute distress, confused. No respiratory distress, currently on room air. HEENT examination is grossly unremarkable. Mucous membranes are moist. No oral lesions. Neck supple. Full range of motion. No adenopathy thyromegaly or neck vein d istention. Cardiovascular examination reveals regular rhythm rate. S1-S2 normal. No S3 or S4. No discernible murmur noted. Lungs reveal clear breath sounds. Her sounds are equal bilaterally. No adventitious lung sounds including wheezes rhonchi or crackles. Abdomen soft bowel sounds are heard. No masses or tenderness. Extremities are intact. No cyanosis clubbing or edema. Skin is without rash or lesion. Neurologic examination is brief but nonfocal. - Labs CBC & Chem 7: 06/25/24 05:49 06/25/24 05:49 Labs: Abnormal Lab Results - Last 24 Hours (Table) 06/25/24 06/25/24 Range/Units 05:49 05:49 WBC 3.15 L (4.50-10.00) 10*3/uL RBC 3.12 L (4.10-5.20) 10*6/uL Hgb 9.4 L (12.0-15.0) g/dL Hct 28.8 L (37.2-46.3) % Neutrophils # 1.64 L (1.80-7.70) 10*3/uL Creatinine 0.50 L (0.52-1.04) mg/dL Microbiology - Last 24 Hours (Table) 06/19/24 01:52 Blood Culture - Final Blood Assessment and Plan Plan: Traumatic chest wall pain, currently on Toradol. Patient remains on room air oxygen. Acute/subacute fractures involving right anterior ribs 2 and 3 and posterior lateral left rib 11. Persistent right upper lobe infiltrate, seen on previous chest x-rays dating back to 2019. Acute L1 vertebral compression fracture, with 25% height loss. Atrial fibrillation with rapid ventricular response, current Rate is under adequate control and the patient is on no anticoagulants. Elevated troponins, likely secondary to above and supply/demand mismatch. Acute febrile illness, without obvious infectious source identified, the patient is currently afebrile and on no antibiotics Altered mental status, Stable, improved Seizure disorder. Alcohol abuse. Polysubstance abuse, urine toxicology screen positive for opiates, TCAs, and marijuana. History of liver cirrhosis. History of hepatitis C. Chronic thrombocytopenia, likely secondary to above. Normocytic, normochromic anemia. Severe hypokalemia. Hypertension. History of hyperlipidemia. COPD, currently stable. Current ongoing tobacco dependence. History of frequent falls. Urinary retention Plan: Patient currently on room air oxygen Continue pain control and management Incentive spirometer Continue Toradol for pain control Monitor electrolytes Monitor blood work Continue antiepileptic medications Fall precautions Will continue to follow Time with Patient: Greater than 30
--- NOTE | 2024-06-25 18:17 | P.PN ---
Subjective Progress Note Date: 06/25/24 I am seeing the patient for the first time during this hospital admission. Please refer to Dr. Dubois's notes for further details. It seems the patient has altered mental status and it is felt due to partial status epilepticus versus metabolic encephalopathy. She had an abnormal EEG with lateralized periodic discharges over the left hemisphere region. It seems that patient was attempted to be transferred to [facility] over [facility] was declined per Dr. Dubois. She had multiple EEGs hospital admission. Per the nurse she continues to be confused and talking sporadic nonsensical at times Objective - Vital Signs Vital signs: Vital Signs Temp 98 F 06/25/24 08:00 Pulse 69 06/25/24 12:00 Resp 16 06/25/24 12:00 BP 104/64 06/25/24 12:00 Pulse Ox 97 06/25/24 12:00 FiO2 Intake & Output 06/24/24 06/25/24 06/25/24 18:59 06:59 18:59 Intake Total 368 Balance 368 Weight 65.5 kg 65.5 kg Intake: IV 10 Invasive Line 6 10 Oral 358 Other: Voiding Method Toilet Toilet Toilet Diaper Diaper Diaper Incontinent Incontinent Incontinent # Voids 3 - Exam General: Lying in bed and does not appear in acute distress. Neuro: Limited. Patient is awake oriented to self and place. Upon asking her that time she wou ld continue to repeat her date of . Then she will talk nonsensical and behave off. She would follow commands after getting her attention. She correctly named objects correctly such as pen watch glasses. No facial weakness. No dysarthria. Motor is hard to assess individual muscle strength because of her cooperation upon assessing her strength she would only lift up the left upper extremity and after persuasion she got up by herself stood up and was left in all extremities and there is does not appear any focal deficit from the limitation of the examination - Labs CBC & Chem 7: 06/25/24 05:49 06/25/24 05:49 Labs: Abnormal Lab Results - Last 24 Hours (Table) 06/25/24 06/25/24 Range/Units 05:49 05:49 WBC 3.15 L (4.50-10.00) 10*3/uL RBC 3.12 L (4.10-5.20) 10*6/uL Hgb 9.4 L (12.0-15.0) g/dL Hct 28.8 L (37.2-46.3) % Neutrophils # 1.64 L (1.80-7.70) 10*3/uL Creatinine 0.50 L (0.52-1.04) mg/dL Microbiology - Last 24 Hours (Table) 06/19/24 01:52 Blood Culture - Final Blood Assessment and Plan Assessment: * Altered mental status, likely due to partial status epilepticus versus metabolic encephalopathy. Rule out hepatic encephalopathy. * Abnormal EEG with LPDs involving left hemispheric region * History of alcoholism, blood alcohol level borderline 15. * Probable alcohol withdrawal/DTs. * History of polysubstance abuse * Chronic tobacco use * History of seizure disorder * Severe hypokalemia * Hypomagnesemia * Recurrent falls * Acute L1 vertebral body compression fracture 25% height loss * Acute/subacute fractures of the right anterior ribs 2 and 3 and posterior- lateral left rib 11. * Atrial fibrillation with rapid ventricular rate * Possible hepatic cirrhosis noted on CT abdomen Plan: * Patient's blood test shows normal hepatic panel, ammonia 10, Dilantin level 9 .7. Await Keppra level * Per Dr. Dubois, although ammonia is normal, but she may have some component of hepatic encephalopathy and recommends starting lactulose. * Routine EEG 06/22/2024, was abnormal due to background slowing, suggestive of moderate encephalopathy. Presence of lateralized periodic discharges(LPDs) involving the left hemispheric region, which appears to have decrease in frequency and amplitude as compared to the studies from yesterday. No obvious epileptic seizure was recorded. Clinical correlation is strongly recommended. * Routine EEG 06/21/2024 showing continued presence of periodic lateralized a platform discharges over the left hemispheric region, although they have much improved, less aggressive, lower amplitude and not as regular. Some improvement in the background activity seen. Still overall background slowing of moderate degree. Clinical correlation and repeat EEG recommended, if clinically indicated. * Prolonged EEG 06/20/2024 was again abnormal due to presence of periodic lateralized epileptiform discharges over the left hemispheric region at 1 Hz. Background slowing of moderate to severe degree, suggestive of encephalopathy. When compared to the EEG from 06/19/2024, the amplitude of the epileptiform activity has decreased (improved). Follow-up EEG and perhaps continuous EEG monitoring recommended. * Initial EEG 06/19/2024 was severely abnormal due to presence of continuous, periodic lateralized epileptiform discharges at 1 Hz involving the left hemispheric region, suggestive of focal cortical neuronal dysfunction with underlying cortical irritability and tendency for seizures. Partial status epilepticus cannot be ruled out. Clinical correlation is recommended. Background slowing, suggestive of moderate to severe encephalopathy. Follow- up EEG and continuous EEG monitoring recommended. * Patient apparently on Dilantin, Keppra and Vimpat. Her Dilantin level is 9.7. * 2-D echo revealed normal LV EF 60-65%. Mild concentric LVH. No obvious regional wall motion abnormality. Moderate left atrial dilation. * Cardiology, pulmonary, orthopedic surgery also on board. * Per daughter, there were about 6 bottles of Rum in her house. Some of them are completely empty, some of them were partly empty. She found one bottle in the laundry basket, and one in the kitchen and in different parts of the house. She believes that patient has been drinking heavily only for about 6 to to 7 days. She was drinking at least 1 pint of rum a day. She had her own apartment but she was kicked out. She is currently renting a room in her sister's house. * Pending Repeat EEG in the morning. The plan is discussed with the nurse. Time with Patient: Less than 30
--- NOTE | 2024-06-25 21:58 | EEG ---
ELECTROENCEPHALOGRAM REPORT This is a 68 year-old woman with history of seizure who has altered mental status. The video EEG is obtained to evaluate for seizure and discharges. RELEVANT MEDICATIONS: 1. Keppra. 2. Dilantin. 3. Vimpat. 4. Ativan. EEG TYPE: This is a routine 21-channel EEG with video using the 10/20 electrode placement system. DESCRIPTION: Wakefulness is only obtained. During awake state, the background consists of low-to- moderate voltage of 6 to 6.5 hertz activity intermixed with delta activity. There is no physiological stage 2 sleep architecture. There is left temporal slowing. Interictal and ictal is, there is questionable sharply contoured activity over the left temporal region, but no clear discharges or seizure on the EEG. ACTIVATION PROCEDURE: Photic stimulation did not evoke a posterior driving response. There is no abnormality during the photic stimulation. Hyperventilation is not performed. CLINICAL INTERPRETATION: This is an abnormal routine EEG. The background slowing is suggestive of moderate encephalopathy. There is focal slowing over the left temporal region which is suggestive of cerebral dysfunction in the involved region. The questionable sharply contoured activity over the left temporal can increase cortical irritability. No clear epileptiform discharges. No seizure is noted during the study. Clinical correlation is recommended. MMODL / IJN: [id number] / MTDCr
--- NOTE | 2024-06-25 22:42 | P.PN ---
Subjective Progress Note Date: 06/25/24 Patient is a 68-year-old female with hypertension, seizures, depression, hyperlipidemia, history of CVA, alcohol use disorder, recreational drug use, hepatitis C, COPD, who presents with altered mental status and rib and vertebrae fracture. Patient is poor historian and cannot provide history. No family present. Multiple recent admissions. February, patient worked up for altered mental status, seizures, and possible encephalitis and was transferred to [facility] for continuous EEG monitoring. Also, she evaluated the emergency department on 06/14/24 after fall down the stairs. 06/20/2024 Patient seen and examined at bedside. Remains lethargic, unable to fully assess mental capacity. Patient apparently A+O x 1 to nursing staff today. 06/21/2024 Patient seen and examined at bedside. Remains lethargic after Ativan for active withdrawals. She is now having loose watery diarrhea. Patient apparently A+O x 3 to nursing staff today. Social work seeing patient for APS. 06/22/2024 Patient seen and examined at while walking with PT. Patient has continued to speak nonsensically. She is A+O x 1 to person. Neurology following closely, patient not eligible for transfer to [facility]. 06/23/2024 Patient seen and examined at bedside. No acute events overnight. Patient has continued to speak nonsensically. She is A+O x 1 to person. Neurology closely following patient's mental status. 06/24/2024 Patient is motivated and oriented today. No complaints of chest pain or shortness of breath. No cough or sputum production. Patient has been afebrile pain is controlled. Tolerating oral diet. Patient does have constant observer at bedside. Laboratory data showed sodium 136 potassium 4.1 chloride 106 bicarb is 25 BUN 11 and creatinine 0.57 and blood sugar 95 and magnesium 1.66 replace as per protocol. Patient is also iron deficient and is being supplemented with IV infusion. 06/25/2021 Patient is lying in the bed. Awake alert but disoriented and delirious. No complaints of chest pain or shortness of breath. No cough or sputum production. Patient was afebrile. Laboratory tested WBC 3.1 hemoglobin 9.4 and platelets 194 sodium 138 potassium 4.0 chloride 105 bicarb is 27 BUN 9 and creatinine 0.5. Patient is on Keppra, lacosamide and phenytoin. Continued on bedside sitter. PHYSICAL EXAMINATION: Vitals reviewed GENERAL: Lethargic, no acute distress. HENT: Normocephalic, multiple bruises on forehead, dentures CARDIOVASCULAR: S1 and S2 present. No murmurs, rubs, or gallops. PULMONARY: Chest is clear to auscultation, no wheezing, rhonchi, or crackles. ABDOMEN: Soft, nontender, nondistended. No palpable organomegaly. EXTREMITIES: No apparent cyanosis, clubbing. No pedal edema. NEUROLOGICAL: Alert and oriented x12. Gross neurological examination with no apparent focal deficits. SKIN: Multiple excoriations on legs, multiple bruises Today significant findings: Labssodium 137, chloride 108, creatinine 0.46, magnesium 1.6 No new imaging Assessment and plan Patient is a 68-year-old female with hypertension, seizures, depression, hyperlipidemia, history of CVA, alcohol use disorder, polysubstance abuse, hepatitis C, COPD, who presents with altered mental status and rib and vertebrae fracture. # Acute metabolic and toxic encephalopathy, likely due to drug use #Polysubstance abuse # Possible partial status epilepticus. - Initial urine drug screening findings of opioids, TCA and marijuana, serum alcohol 15 EEG reviewed Continue with Vimpat 200 mg twice daily Continue Keppra 1500 mg twice daily Continue Dilantin 200 mg every 12 hours Neurology following - Mental status is improving. #Hypokalemia, resolved #Hyponatremia, resolved #Hypomagnesemia - Initial potassium 2.5, Mg 1.2 Replace potassium magnesium as per protocol. Monitor CMP #Vertebral body compression fracture of L1 #Multiple rib fractures #Fall - Pain management Brace recommended by orthopedic surgery with conservative management Orthopedic surgery has seen the patient. PT OT following Pulmonology following #Alcohol dependence with withdrawal #Alcohol withdrawal seizures - CIWA protocol with Ativan IVP in place Daily thiamine and folic acid - Fall and seizure precautions monitor daily electrolytes - cardiac monitoring - vp digital marketing social media and crm consult #A-fib RVR likely due to alcohol, new onset #Elevated troponin, likely type II GA secondary to oxygen supply/demand mismatch - continuous cardiac monitoring - echocardiogram reviewed - Continue metoprolol succinate 12.5mg daily - Poor candidate for anticoagulation, will hold off at this time. - TSH WNL Cardiology following #Bicytopenia, likely due to alcohol use #History of liver cirrhosis Initial hemoglobin 10.1, platelets 91 - Monitor CBC #Fever, resolved #Mild leukopenia Tmax 100.3 F on admission, afebrile today Not on biotics Monitor CBC #Urinary retention, resolved Chronic Medical Conditions #Seizures #Depression #Hyperlipidemia #Hypertension - Resume home medications F: P.o. E: Replete as needed N: Heart healthy diet Code status: Full code Objective - Vital Signs Vital signs: Vital Signs Temp 98 F 06/25/24 08:00 Pulse 59 L 06/25/24 16:00 Resp 16 06/25/24 16:00 BP 111/72 06/25/24 16:00 Pulse Ox 99 06/25/24 16:00 FiO2 Intake & Output 06/25/24 06/25/24 06/26/24 06:59 18:59 06:59 Weight 65.5 kg 65.5 kg Other: Voiding Method Toilet Toilet Diaper Diaper Incontinent Incontinent - Labs CBC & Chem 7: 06/25/24 05:49 06/25/24 05:49 Labs: Abnormal Lab Results - Last 24 Hours (Table) 06/25/24 06/25/24 Range/Units 05:49 05:49 WBC 3.15 L (4.50-10.00) 10*3/uL RBC 3.12 L (4.10-5.20) 10*6/uL Hgb 9.4 L (12.0-15.0) g/dL Hct 28.8 L (37.2-46.3) % Neutrophils # 1.64 L (1.80-7.70) 10*3/uL Creatinine 0.50 L (0.52-1.04) mg/dL
[2024-06-25] MEDS: polyethylene glycoL 3350 17 GM POWD.PACK PO SCH (23:45)
[2024-06-26 03:23] VITALS: TEMP 97.8
--- NOTE | 2024-06-26 12:10 | P.PN ---
Subjective Progress Note Date: 06/26/24 I am following up with the patient and according to the nurse patient is doing better today compared to yesterday. She seems more cooperative. Objective - Vital Signs Vital signs: Vital Signs Temp 97.8 F 06/26/24 03:18 Pulse 65 06/26/24 08:00 Resp 16 06/26/24 08:00 BP 118/71 06/26/24 08:00 Pulse Ox 98 06/26/24 03:18 FiO2 Intake & Output 06/25/24 06/26/24 06/26/24 18:59 06:59 18:59 Weight 65.5 kg 64.2 kg Other: Voiding Method Toilet Toilet Toilet Diaper Diaper Diaper Incontinent Incontinent Incontinent # Voids 1 - Exam General: Is walking with physical therapy Neuro: Somewhat limited Patient is awake alert oriented to self and with options she correctly stated she is in the hospital. I had to ask the question about the place multiple times with options and after her focusing she correctly shows the correct answer. She is following simple commands. No weakness. No dysarthria Motor: Strength is limited in assessment but she is able to stand up with some assistance and lifting all extremities above gravity equally. - Labs CBC & Chem 7: 06/25/24 05:49 06/25/24 05:49 Assessment and Plan Assessment: * Altered mental status, likely due to partial status epilepticus versus metabolic encephalopathy. Rule out hepatic encephalopathy--- mentation is slightly better today compared to yesterday * Abnormal EEG with LPDs involving left hemispheric region * History of alcoholism, blood alcohol level borderline 15. * Probable alcohol withdrawal/DTs. * History of polysubstance abuse * Chronic tobacco use * History of seizure disorder * Severe hypokalemia * Hypomagnesemia * Recurrent falls * Acute L1 vertebral body compression fracture 25% height loss * Acute/subacute fractures of the right anterior ribs 2 and 3 and posterior- lateral left rib 11. * Atrial fibrillation with rapid ventricular rate * Possible hepatic cirrhosis noted on CT abdomen Plan: * Patient's blood test shows normal hepatic panel, ammonia 10, Dilantin level 9.7. Await Keppra level * Per Dr. Dubois, although ammonia is normal, but she may have some component of hepatic encephalopathy and recommends starting lactulose. * Repeat routine EEG on 06/25/2024: Is abnormal. The background slowing is suggestive of moderate encephalopathy. There is focal slowing over the left temporal region which is suggestive of cerebral dysfunction in the involved region. The questionable sharply contoured activity over the left temporal can increase cortical irritability. No clear epileptiform discharges. No seizure noted during the study. * Routine EEG 06/22/2024, was abnormal due to background slowing, suggestive of moderate encephalopathy. Presence of lateralized periodic discharges(LPDs) involving the left hemispheric region, which appears to have decrease in frequency and amplitude as compared to the studies from yesterday. No obvious epileptic seizure was recorded. Clinical correlation is strongly recommended. * Routine EEG 06/21/2024 showing continued presence of periodic lateralized a platform discharges over the left hemispheric region, although they have much improved, less aggressive, lower amplitude and not as regular. Some improvement in the background activity seen. Still overall background slowing of moderate degree. Clinical correlation and repeat EEG recommended, if clinically indicated. * Prolonged EEG 06/20/2024 was again abnormal due to presence of periodic lateralized epileptiform discharges over the left hemispheric region at 1 Hz. Background slowing of moderate to severe degree, suggestive of encephalopathy. When compared to the EEG from 06/19/2024, the amplitude of the epileptiform activity has decreased (improved). Follow-up EEG and perhaps continuous EEG monitoring recommended. * Initial EEG 06/19/2024 was severely abnormal due to presence of continuous, periodic lateralized epileptiform discharges at 1 Hz involving the left hemispheric region, suggestive of focal cortical neuronal dysfunction with underlying cortical irritability and tendency for seizures. Partial status epilepticus cannot be ruled out. Clinical correlation is recommended. Background slowing, suggestive of moderate to severe encephalopathy. Follow- up EEG and continuous EEG monitoring recommended. * Patient apparently on Dilantin, Keppra and Vimpat. Her Dilantin level is 9.7. * 2-D echo revealed normal LV EF 60-65%. Mild concentric LVH. No obvious regional wall motion abnormality. Moderate left atrial dilation. * Cardiology, pulmonary, orthopedic surgery also on board. * Per daughter, there were about 6 bottles of Rum in her house. Some of them are completely empty, some of them were partly empty. She found one bottle in the laundry basket, and one in the kitchen and in different parts of the ho use. She believes that patient has been drinking heavily only for about 6 to to 7 days. She was drinking at least 1 pint of rum a day. She had her own apartment but she was kicked out. She is currently renting a room in her sister's house. * Pending Repeat EEG in the morning. The plan is discussed with the nurse. Time with Patient: Less than 30
[2024-06-26 12:22] VITALS: BP 136/74; PULSE 71
--- NOTE | 2024-06-26 15:40 | P.PN ---
Subjective Progress Note Date: 06/26/24 Patient is a 68-year-old female with past medical history significant for COPD, tobacco smoker, alcoholism, liver disease, hepatitis C, polysubstance abuse, seizure disorder. Currently, patient is altered and unable to provide useful information. No family present. Note that back in February, patient worked up for altered mental status, seizures, and possible encephalitis. She ended up being transferred to [facility] for continuous EEG monitoring. More recently, patient evaluated the emergency department on 06/14/24 after fall down the stairs. Patient presented back to the emergency department yesterday evening. Per the ER report noticed to be confused by family. Also, noted to have low-grade temps in the emergency department. Pulmonary consult was placed as the patient was found to have multiple rib fractures. CT of the chest, abdomen, pelvis with contrast showing acute/subacute fractures of the right anterior ribs 2 and 3 and posterior lateral left rib 11. Acute L1 vertebral compression fracture with 25% height loss, no significant retropulsion or spinal canal or neural for minimal stenosis. Similar right upper lobe airspace opacity. CT of the head and C-spine without contrast did not show any acute intracranial process. No evidence of cervical spine fracture. Nonspecific white matter changes, likely secondary to chronic small vessel ischemic disease. CBC: WBC count 8.3, hemoglobin 10.1, platelets 91,000. INR 1.2, APTT 22.4. CMP: Sodium 132, potassium 2.5, chloride 98, serum bicarb 24, BUN 17, creatinine 0.62, glucose 103. Normal saline infusing at 130 mL/h. Lactic 3 and down to 1. LFTs unremarkable. Total bilirubin 2.6. Troponin 0.26. Creatinine kidney is 485. Urinalysis fairly unremarkable. Negative leukocytes and nitrates. Urine toxicology screen positive for opiates, TCAs, and marijuana. Serum alcohol level 15. Patient currently being evaluated emergency department. According to nursing staff, experiencing some urinary retention with a total of 700 cc of urine found in the bladder with bladder ultrasound. Patient has been straight cathed x 1. She is currently awake with nonsensical speech pattern. Facial spasms or seizure activity and eye blinking. Terminated with one 1 mg Ativan IV push. History of seizures, maintained on Keppra on outpatient basis. Patient also previously noted to be in atrial fibrillation with rapid ventricular response, rate as high as 185 bpm. Previously loaded with 10 mg of IV Cardizem, and started on Cardizem which is infusing at 10 mg/h. Blood pressure is normotensive. No documented history of atrial fibrillation in EMR. As far as her pulmonary status, nonlabored breathing pattern. On room air. No crepitus or subcutaneous emphysema. No focal tenderness with palpation. Multiple bruising at various stages of healing. Chin laceration. Current vital signs: Temperature 100.1 F, heart rate 87 bpm, blood pressure 112/65 mmHg, nontachypneic, SpO2 reading 97% on room air. Progress note dated June 20, 2024. 68-year-old patient seen yesterday in consultation. She is seen today in room 352. She is awake and alert. No distress. She is on room air. She is getting saline at 20 cc an hour. She has a history of multiple medical problems including COPD, tobacco use, alcoholism, alcoholic liver disease, hepatitis C, polysubstance abuse, and seizure disorder. The patient was seen recently for bilateral rib fractures. Current laboratory data includes a white count of 4.5, hemoglobin 8.6, hematocrit 25.7, and a platelet count of 80,000. Sodium 134, potassium 3.6, chlorides 107, CO2 23, BUN 8, creatinine 0.48. Glucose is 95. Progress note dated June 21, 2024. 68-year-old female seen today in room 352. The patient is alert, but really not speaking anything sensible at this point. She is currently on room air. She is not receiving any IV fluids. She apparently fell at home, and fractured ribs both, on the right side and left side. White count 5.4, hemoglobin 9.3, hematocrit 28.4, and platelet count 138,000. Sodium 136, potassium 4.2, chlorides 109, CO2 22, BUN 12, creatinine 0.58. Glucose is 97. Calcium 8.4, magnesium 1.4. Progress note dated June 22, 2024. 68-year-old female seen in room 354. The patient is currently resting comfortably in bed. She is on room air. She is not receiving any IV fluids. The patient recently had an EEG, and those results are currently pending. Current laboratory data includes a white count of 3.8, hemoglobin 9.4, hematocrit 28.1, and platelet count 154,000. Sodium 137, potassium 3.5, chlorides 110, CO2 24, BUN 6, creatinine 0.49. Calcium is 8.5. Magnesium is 1.4. Progress note dated June 23, 2024. 68-year-old female again seen in room 354. There is a sitter in the room with the patient. She is currently sleeping. She appears in no distress. She is on room air. She is not requiring any fluids. According to nursing, the patient had an uneventful night. Laboratory data includes a sodium 137, potassium 3.9, chloride 108, CO2 23, anion gap 6, BUN 9, and creatinine 0.46. Progress note dated June 24, 2024. 68-year-old female seen today in room 354. She remains about the same. She is on room air. No IV fluids. There have been no major changes in her health. She denies any respiratory issues, or issues with blood pressure, chest pain, etc. Current labs include a sodium 136, potassium 4.1, chlorides 106, CO2 25, anion gap 5, BUN 11, and creatinine 0.57. Glucose is 95. Calcium 8.3, and magnesium 1.6. 06/25/2024 seeing this patient for a follow-up. She is continuing with the experience on pain which is essentially diffuse and at the same time patient has multiple subacute injuries involving the chest wall in addition to rib fractures on the right 2nd and 3rd and posteriorly on the left 11th rib and an L1 vertebral compression fracture. Her pain is estimated to be 5 out of 10 in severity. No other new complaints otherwise for now. She is resting comfortably in bed and she is on room air oxygen. She is afebrile. Hemodynamically stable. Medications are essentially unchanged. She has on off Toradol. And rest of the home medications have been all resumed. She is receiving IV iron for iron deficiency anemia. The white cell count is at 3.1 with hemoglobin 9.4 and platelet count of 194. Electrolytes are all within normal limits. BUN is at 9 with a creatinine of 0.5. Dilantin level is at 9.7, Keppra level is at 30.8. She is known to have COPD, chronic liver disease, hepatitis C, polysubstance abuse and alcoholism. She also has history of seizure disorders. On 06/26/2024, the patient remains confused and delirious. The patient has a sitter at the bedside. The patient is currently on Seroquel 25 mg at bedtime. Rest of the antiplatelet medications are essentially unchanged. No obvious discomfort or pain. No new labs are available from today. Hemodynamically stable and the patient remains on room air oxygen with a pulse ox of 99%. Neur ology on the case and the patient remains on antiepileptic medication. Most recent EEG from 06/25/2024 was abnormal and there was background encephalopathy. There was focal slowing over the left temporal region which was suggestive of cerebral dysfunction. There was also questionable sharply contoured activity over the left temporal area with increased cortical activity. No clear seizure activity was noted. 2D echocardiogram showed a preserved LV function. The patient is a alcohol drinker. Remains on Dilantin and Keppra and Vimpat. Remains on Seroquel Objective - Vital Signs Vital signs: Vital Signs Temp 97.8 F 06/26/24 03:18 Pulse 65 06/26/24 08:00 Resp 16 06/26/24 08:00 BP 118/71 06/26/24 08:00 Pulse Ox 98 06/26/24 03:18 FiO2 Intake & Output 06/25/24 06/26/24 06/26/24 18:59 06:59 18:59 Weight 65.5 kg 64.2 kg Other: Voiding Method Toilet Toilet Diaper Diaper Incontinent Incontinent # Voids 1 - Exam No acute distress, confused. No respiratory distress, currently on room air. HEENT examination is grossly unremarkable. Mucous membranes are moist. No oral lesions. Neck supple. Full range of motion. No adenopathy thyromegaly or neck vein distention. Cardiovascular examination reveals regular rhythm rate. S1-S2 normal. No S3 or S4. No discernible murmur noted. Lungs reveal clear breath sounds. Her sounds are equal bilaterally. No adventitious lung sounds including wheezes rhonchi or crackles. Abdomen soft bowel sounds are heard. No masses or tenderness. Extremities are intact. No cyanosis clubbing or edema. Skin is without rash or lesion. Neurologic examination is brief but nonfocal. - Labs CBC & Chem 7: 06/25/24 05:49 06/25/24 05:49 Assessment and Plan Plan: Traumatic chest wall pain, currently on Toradol. Patient remains on room air oxygen. Acute/subacute fractures involving right anterior ribs 2 and 3 and posterior lateral left rib 11. Persistent right upper lobe infiltrate, seen on previous chest x-rays dating back to 2019. Acute L1 vertebral compression fracture, with 25% height loss. Atrial fibrillation with rapid ventricular response, current Rate is under adequate control and the patient is on no anticoagulants. Altered mentation, encephalopathy. Rule out delirium related to previous alcohol use. No clear-cut seizure activity. Neurology on the case. Please refer to the EEG as noted Elevated troponins, likely secondary to above and supply/demand mismatch. Acute febrile illness, without obvious infectious source identified, the patient is currently afebrile and on no antibiotics Altered mental status, Stable, improved Seizure disorder. Alcohol abuse. Polysubstance abuse, urine toxicology screen positive for opiates, TCAs, and marijuana. History of liver cirrhosis. History of hepatitis C. Chronic thrombocytopenia, likely secondary to above. Normocytic, normochromic anemia. Severe hypokalemia. Hypertension. History of hyperlipidemia. COPD, currently stable. Current ongoing tobacco dependence. History of frequent falls. Urinary retention Plan: Patient currently on room air oxygen Continue pain control and management Incentive spirometer Sitter at the bedside Continue Toradol for pain control Monitor electrolytes Monitor blood work Continue antiepileptic medications Monitor mental status neurology is on the case Fall precautions Will continue to follow Time with Patient: Greater than 30
--- NOTE | 2024-06-26 15:58 | P.DS ---
Providers Date of admission: 06/18/24 21:30 Expected date of discharge: 06/26/24 Attending physician: Aldair Parekh Consults: 06/18/24 21:26 Consult Physician Routine Consulting Provider: Shaka Phelps Consult Reason/Comments: spine fracture Do you want consulting provider notified?: Yes 06/18/24 21:30 Consult Physician Routine Consulting Provider: Jamal Michele Consult Reason/Comments: rib fractures Do you want consulting provider notified?: Yes Consult Physician Routine Consulting Provider: Aston Dubois Consult Reason/Comments: ams Do you want consulting provider notified?: Yes 06/18/24 21:35 Consult Physician Routine Consulting Provider: Rachael Zuniga Consult Reason/Comments: medicine consult Do you want consulting provider notified?: Yes 06/20/24 13:55 Consult Physician Routine Consulting Provider: Kate Rico Consult Reason/Comments: trauma Do you want consulting provider notified?: Already Contacted Primary care physician: Danny Pedersen MD Hospital Course: Discharge diagnoses; # Acute metabolic and toxic encephalopathy, likely due to drug use #Polysubstance abuse # Possible partial status epilepticus #Delirium #Hypokalemia #Hyponatremia #Hypomagnesemia #Vertebral body compression fracture of L1 #Multiple rib fractures #Fall #Alcohol dependence with withdrawal #Alcohol withdrawal seizures #A-fib RVR likely due to alcohol, new onset #Elevated troponin, likely type II DE secondary to oxygen supply/demand mismatch #Bicytopenia, likely due to alcohol use #History of liver cirrhosis #Fever, resolved #Mild leukopenia #Urinary retention Chronic Medical Conditions #Seizures #Depression #Hyperlipidemia #Hypertension Hospital course; Patient is a 68-year-old female with hypertension, seizures, depression, hyperlipidemia, history of CVA, alcohol use disorder, recreational drug use, hepatitis C, COPD, who presents with altered mental status and rib and vertebrae fracture. Patient is poor historian and cannot provide history. No family present. Multiple recent admissions. February, patient worked up for altered mental status, seizures, and possible encephalitis and was transferred to [facility] for continuous EEG monitoring. Also, she evaluated the emergency department on 06/14/24 after fall down the stairs. During patient's hospital course she was seen for acute toxic encephalopathy and vertebral body compression fracture of L1. She was seen by orthopedic surgery who decided to manage patient conservatively and given lumbar brace. He was also seen by neurology for her encephalopathy. Transferred to [facility] with attempted however [facility] would not accept patient. She was started on Vimpat, Dilantin and continued on Keppra. Multiple EEGs completed by neurology, with most recent being a abnormal EEG with no seizure activity noted however Abnormal EEG with LPDs involving left hemispheric region. Head CT was unremarkable for acute intracranial process, findings of nonspecific white matter changes likely secondary to small vessel ischemic disease. For history of polysubstance abuse and alcohol use disorder social work was consulted. During stay, patient's waxed and waned with delirium and confusion. Lactulose was suggested for element of possible hepatic encephalopathy. And at times was ANO x 1 to ANO x 2. She was typically cooperative. Patient discharge in stable condition to home with home health care. New medications include Keppra 1500 mg twice daily, metoprolol 12.5 mg daily, Dilantin 200 mg twice daily, Vimpat 200 mg twice daily, folic acid and thiamine daily, lactulose 30 g daily. She is to follow-up with PCP, and orthopedic surgery. Will need follow-up of thiamine levels. Patient overall prognosis is guarded. There is significant social barriers, including polysubstance abuse and alcohol use. Patient would benefit from following with AA. Adult protective services may be needed, however patient is unable to give useful history at this time. PHYSICAL EXAMINATION: Vitals reviewed GENERAL: Lethargic, no acute distress. HENT: Normocephalic, multiple bruises on forehead, dentures CARDIOVASCULAR: S1 and S2 present. No murmurs, rubs, or gallops. PULMONARY: Chest is clear to auscultation, no wheezing, rhonchi, or crackles. ABDOMEN: Soft, nontender, nondistended. No palpable organomegaly. EXTREMITIES: No apparent cyanosis, clubbing. No pedal edema. NEUROLOGICAL: Alert and oriented x2. Gross neurological examination with no apparent focal deficits. SKIN: Multiple excoriations on legs, multiple bruises Dr. Parekh seen patient with resident, present during exam, and agreed with findings. Dictation was produced using [employer] dictation software. please excuse any grammatical, word or spelling errors. Patient Condition at Discharge: Stable Plan - Discharge Summary Discharge Rx Participant: No New Discharge Prescriptions: New Thiamine [Vitamin B-1] 100 mg PO DAILY #30 tab Lactulose [Cephulac] 30 gm PO DAILY #7 ml Folic Acid 1 mg PO DAILY #30 tab levETIRAcetam [Keppra] 1,500 mg PO BID #120 tab Metoprolol Succinate (ER) [Toprol XL] 12.5 mg PO DAILY #30 tab Phenytoin Sodium Extended [Dilantin] 200 mg PO BID #60 capsule Lacosamide [Vimpat] 200 mg PO BID #60 tab Continue QUEtiapine [SEROquel] 25 mg PO HS Clopidogrel [Plavix] 75 mg PO DAILY Atorvastatin [Lipitor] 40 mg PO HS rOPINIRole HCL [Requip] 1 mg PO BID Escitalopram [Lexapro] 20 mg PO DAILY lisinopriL [Zestril] 10 mg PO DAILY Ergocalciferol [Vitamin D2 (1250 Mcg = 21817 Iu)] 1,250 mcg PO WEEKLY Discontinued levETIRAcetam [Keppra] 2,000 mg PO Q12HR Discharge Medication List Atorvastatin [Lipitor] 40 mg PO HS 08/24/21 [History] Clopidogrel [Plavix] 75 mg PO DAILY 08/24/21 [History] Escitalopram [Lexapro] 20 mg PO DAILY 08/24/21 [History] QUEtiapine [SEROquel] 25 mg PO HS 08/24/21 [History] rOPINIRole HCL [Requip] 1 mg PO BID 08/24/21 [History] Ergocalciferol [Vitamin D2 (1250 Mcg = 75334 Iu)] 1,250 mcg PO WEEKLY 06/14/24 [History] lisinopriL [Zestril] 10 mg PO DAILY 06/14/24 [History] Folic Acid 1 mg PO DAILY #30 tab 06/22/24 [Rx] Metoprolol Succinate (ER) [Toprol XL] 12.5 mg PO DAILY #30 tab 06/22/24 [Rx] Thiamine [Vitamin B-1] 100 mg PO DAILY #30 tab 06/22/24 [Rx] levETIRAcetam [Keppra] 1,500 mg PO BID #120 tab 06/22/24 [Rx] Lacosamide [Vimpat] 200 mg PO BID #60 tab 06/26/24 [Rx] Lactulose [Cephulac] 30 gm PO DAILY #7 ml 06/26/24 [Rx] Phenytoin Sodium Extended [Dilantin] 200 mg PO BID #60 capsule 06/26/24 [Rx] Follow up Appointment(s)/Referral(s): Danny Pedersen MD [Primary Care Provider] - 06/26/24 8:00 am (TUESDAY) Phoenix Clarke PAC [PHYSICIAN HEARING AID SPECIALIST] - 07/02/24 1:15 pm (Patient may follow-up with Phoenix Clarke PA-C or Dr. Jareth Phelps at [facility] in 2-3 weeks following discharge. ) [facility], [NON-STAFF] - 1 Week Activity/Diet/Wound Care/Special Instructions: 1. Patient may wear LSO brace for comfort and support while sitting upright at greater than 45, while working with therapy, and while ambulating; patient does not have to wear the brace while lying in bed or bathing 2. Patient should avoid excessive bending, twisting, and lifting; no lifting greater than 10 pounds Discharge/Stand Alone Forms: AA Meetings [place], [facility] Resources, Outpatient Counseling, Inp Substance Abuse Facilities Discharge Disposition: HOME WITH HOME HEALTH SERVICES
== END 2024-06-26 15:31 | disposition home health service (06) | DRG 551 ==
LOC: EC 17:15 → 3SCARD 21:30
PROVIDERS: ADMIT Internal Medicine; ATTEND Internal Medicine
PROC: 3E033RZ Introduction of Antiarrhythmic into Peripheral Vein, Percutaneous Approach (ICD-10-PCS; principal; 2024-06-18)
DX: S32.019A Unspecified fracture of first lumbar vertebra, initial encounter for closed fracture (principal); G92.8 Other toxic encephalopathy; I21.A1 Myocardial infarction type 2; G40.901 Epilepsy, unspecified, not intractable, with status epilepticus; E87.1 Hypo-osmolality and hyponatremia; I65.01 Occlusion and stenosis of right vertebral artery; M50.021 Cervical disc disorder at C4-C5 level with myelopathy; I48.91 Unspecified atrial fibrillation; D50.9 Iron deficiency anemia, unspecified; F12.10 Cannabis abuse, uncomplicated; S22.43XA Multiple fractures of ribs, bilateral, initial encounter for closed fracture; F10.239 Alcohol dependence with withdrawal, unspecified; D72.819 Decreased white blood cell count, unspecified; K74.60 Unspecified cirrhosis of liver; J44.89 Other specified chronic obstructive pulmonary disease; D69.59 Other secondary thrombocytopenia; F32.A Depression, unspecified; I10 Essential (primary) hypertension; F19.10 Other psychoactive substance abuse, uncomplicated; I67.2 Cerebral atherosclerosis; S01.81XA Laceration without foreign body of other part of head, initial encounter; M51.370 Other intervertebral disc degeneration, lumbosacral region with discogenic back pain only; K70.9 Alcoholic liver disease, unspecified; B19.20 Unspecified viral hepatitis C without hepatic coma; T50.915A Adverse effect of multiple unspecified drugs, medicaments and biological substances, initial encounter; K21.9 Gastro-esophageal reflux disease without esophagitis; F90.9 Attention-deficit hyperactivity disorder, unspecified type; F41.9 Anxiety disorder, unspecified; E78.5 Hyperlipidemia, unspecified; E83.42 Hypomagnesemia; E87.6 Hypokalemia; F17.200 Nicotine dependence, unspecified, uncomplicated; R33.9 Retention of urine, unspecified; R32 Unspecified urinary incontinence; K59.00 Constipation, unspecified; R29.6 Repeated falls; I65.21 Occlusion and stenosis of right carotid artery; R19.7 Diarrhea, unspecified; R50.9 Fever, unspecified; Y90.0 Blood alcohol level of less than 20 mg/100 ml; Z91.148 Patient's other noncompliance with medication regimen for other reason; Z79.02 Long term (current) use of antithrombotics/antiplatelets; Z79.899 Other long term (current) drug therapy; Z91.81 History of falling; Z86.73 Personal history of transient ischemic attack (TIA), and cerebral infarction without residual deficits; Y92.009 Unspecified place in unspecified non-institutional (private) residence as the place of occurrence of the external cause; Z71.51 Drug abuse counseling and surveillance of drug abuser; Z71.41 Alcohol abuse counseling and surveillance of alcoholic
CPT/HCPCS: 36415; 51798; 70450; 71260; 72125; 74177; 80048; 80053; 80076; 80143; 80177; 80179; 80185; 80306; 80320; 81001; 81025; 82140; 82550; 82728; 83540; 83550; 83605; 83735; 84132; 84145; 84425; 84443; 84484; 85025; 85027; 85610; 85730; 87040; 93005; 93306; 95813; 95816; 96361; 96365; 96366; 96367; 96368; 96375; 99291

== ENCOUNTER 2024-07-05 04:02 | Observation (INO) | payer MEDICARE, OTHER ==
--- NOTE | 2024-07-05 04:26 | ED ---
Neuro HPI - General Chief Complaint: Neuro Symptoms/Deficit Stated Complaint: AMS Time Seen by Provider: 07/05/24 04:06 Source: patient, EMS Mode of arrival: EMS Limitations: altered mental status - History of Present Illness Is the patient presenting with stroke symptoms?: Yes -: unknown Initial Comments: Patient is a 68-year-old woman who arrives here by ambulance to be evaluated for difficulty with her speech. Unfortunately the patient's friend who called EMS did not accompany the patient. It is not evident how long she has been having difficulty with speech. Patient is not able to further elucidate. She is able to answer some simple direct questions requiring just a few words. Otherwise speech is very confused Location: speech Severity: severe Improves With: none Worsens With: none On Anticoagulants: No Treatments Prior to Arrival: none - Related Data Home Medications: Home Medications Medication Instructions Recorded Confirmed Atorvastatin [Lipitor] 40 mg PO HS 08/24/21 07/05/24 Clopidogrel [Plavix] 75 mg PO DAILY 08/24/21 07/05/24 Escitalopram [Lexapro] 20 mg PO DAILY 08/24/21 07/05/24 QUEtiapine [SEROquel] 25 mg PO HS 08/24/21 07/05/24 rOPINIRole HCL [Requip] 1 mg PO BID 08/24/21 07/05/24 Ergocalciferol [Vitamin D2 (1250 1,250 mcg PO WEEKLY 06/14/24 07/05/24 Mcg = [id number] Iu)] lisinopriL [Zestril] 10 mg PO DAILY 06/14/24 07/05/24 Folic Acid 1 mg PO DIRECTED 07/05/24 07/05/24 Thiamine [Vitamin B-1] 100 mg PO DIRECTED 07/05/24 07/05/24 Previous Rx's Medication Instructions Recorded Metoprolol Succinate (ER) [Toprol 12.5 mg PO DAILY #30 tab 06/22/24 XL] levETIRAcetam [Keppra] 1,500 mg PO BID #120 tab 06/22/24 Lactulose [Cephulac] 30 gm PO DAILY #7 ml 06/26/24 Phenytoin Sodium Extended 200 mg PO BID #60 capsule 06/26/24 [Dilantin] Docusate [Colace] 100 mg PO BID #60 cap 05/02/25 Famotidine [Pepcid] 20 mg PO BID #60 tab 07/06/24 Lacosamide [Vimpat] 200 mg PO BID #0 07/06/24 Allergies/Adverse Reactions: Allergies Allergy/AdvReac Type Severity Reaction Status Date / Time No Known Allergies Allergy Verified 07/05/24 09:35 Review of Systems ROS Statement: Those systems with pertinent positive or pertinent negative responses have been documented in the HPI. ROS Other: All systems not noted in ROS Statement are negative. Limitations: ROS unobtainable due to patients medical condition Constitutional: Denies: fever Respiratory: Denies: cough, dyspnea Cardiovascular: Denies: chest pain, syncope Gastrointestinal: Denies: abdominal pain, vomiting Genitourinary: Denies: dysuria Musculoskeletal: Denies: back pain Skin: Denies: rash Neurological: Reports: confusion. Denies: headache General Exam Limitations: altered mental status General appearance: alert, in no apparent distress Head exam: Present: atraumatic, normocephalic Eye exam: Present: normal appearance. Absent: scleral icterus, conjunctival injection ENT exam: Present: mucous membranes dry Neck exam: Present: normal inspection, full ROM Respiratory exam: Present: normal lung sounds bilaterally. Absent: respiratory distress, wheezes, rales, rhonchi, stridor, accessory muscle use Cardiovascular Exam: Present: regular rate, normal rhythm, normal heart sounds. Absent: systolic murmur, diastolic murmur GI/Abdominal exam: Present: soft. Absent: distended, tenderness, guarding, rebound, mass Extremities exam: Present: normal inspection, normal capillary refill. Absent: pedal edema, calf tenderness Back exam: Present: normal inspection Neurological exam: Present: alert, CN II-XII intact. Absent: motor sensory deficit Psychiatric exam: Present: normal affect Skin exam: Present: warm, dry, intact, normal color. Absent: rash Stroke MDM - Lab Data Result diagrams: 07/05/24 04:28 07/05/24 04:28 Lab Results 07/05/24 07/05/24 07/05/24 Range/Units 04:28 04:28 04:28 WBC 6.48 (4.50-10.00) 10*3/uL RBC 3.29 L (4.10-5.20) 10*6/uL Hgb 10.0 L (12.0-15.0) g/dL Hct 29.6 L (37.2-46.3) % MCV 90.0 (80.0-97.0) fL MCH 30.4 (27.0-32.0) pg MCHC 33.8 (32.0-37.0) g/dL Plt Count 188 (140-440) 10*3/uL MPV 10.0 (9.5-12.2) fL Immature Gran % (Auto) 0.3 % Neutrophils % 53.4 % Lymphocytes % 35.6 % Monocytes % 9.9 % Eosinophils % 0.2 % Basophils % 0.6 % Immature Gran # 0.02 (0.00-0.04) 10*3/uL Neutrophils # 3.46 (1.80-7.70) 10*3/uL Lymphocytes # 2.31 (0.90-5.00) 10*3/uL Monocytes # 0.64 (0.20-1.00) 10*3/uL Eosinophils # 0.01 L (0.04-0.35) 10*3/uL Basophils # 0.04 (0.00-0.10) 10*3/uL PT 11.8 (10.0-12.5) sec INR 1.1 (<1.2) APTT 25.2 (22.0-30.0) sec Sodium 137 (137-145) mmol/L Potassium 3.3 L (3.5-5.1) mmol/L Chloride 103 (98-107) mmol/L Carbon Dioxide 19 L (22-30) mmol/L Anion Gap 15 mmol/L BUN 10 (7-17) mg/dL Creatinine 0.53 (0.52-1.04) mg/dL Est GFR (CKD-EPI)AfAm >90 (>60 ml/min/1.73 sqM) Est GFR (CKD-EPI)NonAf >90 (>60 ml/min/1.73 sqM) Glucose 91 (74-99) mg/dL Calcium 9.9 (8.4-10.2) mg/dL Total Bilirubin 0.9 (0.2-1.3) mg/dL AST 61 H (14-36) U/L ALT 33 (4-34) U/L Alkaline Phosphatase 126 (38-126) U/L Creatine Kinase 166 H (30-135) U/L Troponin I (0.000-0.034) ng/mL Total Protein 7.6 (6.3-8.2) g/dL Albumin 4.1 (3.5-5.0) g/dL Urine Color Urine Appearance (Clear) Urine pH (5.0-8.0) Ur Specific Cheney (1.001-1.035) Urine Protein (Negative) Urine Glucose (UA) (Negative) Urine Ketones (Negative) Urine Blood (Negative) Urine Nitrite (Negative) Urine Bilirubin (Negative) Urine Urobilinogen (<2.0) mg/dL Ur Leukocyte Esterase (Negative) Urine RBC (0-5) /hpf Urine WBC (0-5) /hpf Ur Squamous Epith Cells (0-4) /hpf Urine Bacteria (None) /hpf Hyaline Casts (0-2) /lpf Urine Yeast (Budding) (None) /hpf Urine Opiates Screen (NotDetected) Ur Oxycodone Screen (NotDetected) Urine Methadone Screen (NotDetected) Ur Barbiturates Screen (NotDetected) U Tricyclic Antidepress (NotDetected) Ur Phencyclidine Scrn (NotDetected) Ur Amphetamines Screen (NotDetected) U Methamphetamines Scrn (NotDetected) U Benzodiazepines Scrn (NotDetected) Urine Cocaine Screen (NotDetected) U Marijuana (THC) Screen (NotDetected) Serum Alcohol <10 mg/dL 07/05/24 07/05/24 Range/Units 04:28 06:10 WBC (4.50-10.00) 10*3/uL RBC (4.10-5.20) 10*6/uL Hgb (12.0-15.0) g/dL Hct (37.2-46.3) % MCV (80.0-97.0) fL MCH (27.0-32.0) pg MCHC (32.0-37.0) g/dL Plt Count (140-440) 10*3/uL MPV (9.5-12.2) fL Immature Gran % (Auto) % Neutrophils % % Lymphocytes % % Monocytes % % Eosinophils % % Basophils % % Immature Gran # (0.00-0.04) 10*3/uL Neutrophils # (1.80-7.70) 10*3/uL Lymphocytes # (0.90-5.00) 10*3/uL Monocytes # (0.20-1.00) 10*3/uL Eosinophils # (0.04-0.35) 10*3/uL Basophils # (0.00-0.10) 10*3/uL PT (10.0-12.5) sec INR (<1.2) APTT (22.0-30.0) sec Sodium (137-145) mmol/L Potassium (3.5-5.1) mmol/L Chloride (98-107) mmol/L Carbon Dioxide (22-30) mmol/L Anion Gap mmol/L BUN (7-17) mg/dL Creatinine (0.52-1.04) mg/dL Est GFR (CKD-EPI)AfAm (>60 ml/min/1.73 sqM) Est GFR (CKD-EPI)NonAf (>60 ml/min/1.73 sqM) Glucose (74-99) mg/dL Calcium (8.4-10.2) mg/dL Total Bilirubin (0.2-1.3) mg/dL AST (14-36) U/L ALT (4-34) U/L Alkaline Phosphatase (38-126) U/L Creatine Kinase (30-135) U/L Troponin I <0.012 (0.000-0.034) ng/mL Total Protein (6.3-8.2) g/dL Albumin (3.5-5.0) g/dL Urine Color Yellow Urine Appearance Cloudy H (Clear) Urine pH 7.5 (5.0-8.0) Ur Specific [place]ney 1.029 (1.001-1.035) Urine Protein Negative (Negative) Urine Glucose (UA) Negative (Negative) Urine Ketones Negative (Negative) Urine Blood Trace H (Negative) Urine Nitrite Positive H (Negative) Urine Bilirubin Negative (Negative) Urine Urobilinogen <2.0 (<2.0) mg/dL Ur Leukocyte Esterase Moderate H (Negative) Urine RBC 1 (0-5) /hpf Urine WBC 32 H (0-5) /hpf Ur Squamous Epith Cells 1 (0-4) /hpf Urine Bacteria Occasional H (None) /hpf Hyaline Casts 4 H (0-2) /lpf Urine Yeast (Budding) Rare H (None) /hpf Urine Opiates Screen Not Detected (NotDetected) Ur Oxycodone Screen Detected H (NotDetected) Urine Methadone Screen Not Detected (NotDetected) Ur Barbiturates Screen Detected H (NotDetected) U Tricyclic Antidepress Not Detected (NotDetected) Ur Phencyclidine Scrn Not Detected (NotDetected) Ur Amphetamines Screen Not Detected (NotDetected) U Methamphetamines Scrn Not Detected (NotDetected) U Benzodiazepines Scrn Detected H (NotDetected) Urine Cocaine Screen Not Detected (NotDetected) U Marijuana (THC) Screen Detected H (NotDetected) Serum Alcohol mg/dL - NIH Stroke Scale 1a. Level of Consciousness: (0) alert 1b. LOC Questions: (1) answers 1 question correctly 1c. LOC Commands: (0) performs tasks correctly 2. Best Gaze: (0) normal 3. Visual: (0) no visual loss 4. Facial Palsy: (0) normal symmetrical movement 5a. Motor Arm Left: (0) no drift 5b. Motor Arm Right: (0) no drift 6a. Motor Leg Left: (0) no drift 6b. Motor Leg Right: (0) no drift 7. Limb Ataxia: (0) absent 8. Sensory: (0) normal 9. Best Language: (2) severe aphasia 10. Dysarthria: (0) normal 11. Extinction/Inattention: (0) no abnormality - Medical Decision Making Patient had CT scan of the brain that I interpreted as negative for acute bony trauma, negative for acute intracranial hemorrhage, mass effect or midline shift. Patient had chest x-ray that I interpreted as negative for acute infiltrate, pneumothorax, congestive heart failure Was pt. sent in by a medical professional or institution (, PA, ROLL COATING MACHINE OPERATOR, urgent care, hospital, or shelter...) When possible be specific @ -[No] Did you speak to anyone other than the patient for history (EMS, parent, family, police, friend...)? What history was obtained from this source @ -[EMS did give history Did you review nursing and triage notes (agree or disagree)? Why? @ -[I reviewed and agree with nursing and triage notes] Were old charts reviewed (outside hosp., previous admission, EMS record, old EKG, old radiological studies, urgent care reports/EKG's, shelter records)? Report findings @ -[Yes, old charts were reviewed] Differential Diagnosis (chest pain, altered mental status, abdominal pain women, abdominal pain men, vaginal bleeding, weakness, fever, dyspnea, syncope, headache, dizziness, GI bleed, back pain, seizure, CVA, palpatations, mental health, musculoskeletal)? @ -[Differential CVA Ischemic stroke, hemorrhagic stroke, brain tumor, atypical migraine, Wernicke's encephalopathy, seizure, multiple sclerosis, meningitis, encephalitis, hypoglycemia, Guillain-Fleming, electrolytes disturbance, myasthenia gravis.... This is not meant to be an all-inclusive list EKG interpreted by me (3pts min.). @ -[I interpreted as above] X-rays interpreted by me (1pt min.). @ -[I interpreted as above CT interpreted by me (1pt min.). @ -[I interpreted as above U/S interpreted by me (1pt. min.). @ -[None done] What testing was considered but not performed or refused? (CT, X-rays, U/S, labs)? Why? @ -[None] What meds were considered but not given or refused? Why? @ -[None] Did you discuss the management of the patient with other professionals (professionals i.e. , PA, ROLL COATING MACHINE OPERATOR, lab, RT, psych nurse, older adult social work specialist, yoga instructor, teacher, antisubmarine weapons officer, leather case finisher)? Give summary @ -[Case discussed with neurointerventional list and with admitting physician and treatment recommendations incorporated Was smoking cessation discussed for >3mins.? @ -[No] Was critical care preformed (if so, how long)? @ -[Yes, 35 minutes Were there social determinants of health that impacted care today? How? (Homeles sness, low income, unemployed, alcoholism, drug addiction, transportation, low edu. Level, literacy, decrease access to med. care, fpc, rehab)? @ -[No] Was there de-escalation of care discussed even if they declined (Discuss DNR or withdrawal of care, Hospice)? DNR status @ -[No] What co-morbidities impacted this encounter? (DM, HTN, Smoking, COPD, CAD, Cancer, CVA, ARF, Chemo, Hep., AIDS, mental health diagnosis, sleep apnea, morbid obesity)? @ -[Hypertension, history of previous seizure disorder, substance abuse Was patient admitted / discharged? Hospital course, mention meds given and r oute, prescriptions, significant lab abnormalities, going to OR and other pertinent info. @ -[Patient is a 68-year-old woman with history of seizure disorder and also a previous difficulties with speech. The patient found to be having exacerbation of difficulty with speech tonight. The patient's workup included discussion with neurological interventionalists. Per recommendation needed patient admitted with neurology consultation. Undiagnosed new problem with uncertain prognosis? @ -[No] Drug Therapy requiring intensive monitoring for toxicity (Heparin, Nitro, Insulin, Cardizem)? @ -[No] Were any procedures done? @ -[No] Diagnosis/symptom? @ -[Acute on chronic expressive aphasia Acute, or Chronic, or Acute on Chronic? @ -[Acute on chronic Uncomplicated (without systemic symptoms) or Complicated (systemic symptoms)? @ -[Uncomplicated Side effects of treatment? @ -[No] Exacerbation, Progression, or Severe Exacerbation? @ -[No] Poses a threat to life or bodily function? How? (Chest pain, [place], [place], pneumonia, PE, COPD, DKA, ARF, appy, cholecystitis, CVA, Diverticulitis, Homicidal, Suicidal, threat to staff... and all critical care pts) @ -[Yes, requires further neurology evaluation and treatment All treatments are based on ideal body weight as in ED triage - EKG Data -: EKG Interpreted by Me EKG shows normal: sinus rhythm, axis (Borderline left axis), intervals (Normal), QRS complexes ( normal), ST-T waves ( normal) Rate: normal (Rate 89 bpm) Past Medical History Past Medical History: Asthma, CVA/TIA, GERD/Reflux, Liver Disease, Osteoa rthritis (OA) Additional Past Medical History / Comment(s): ELEVATED LIVER ENZYMES., HX OF PERFORATED STOMACH ULCER., sister states patient has HEPATITIS C, epigastric pain, recent admission for taking too much tylenol pm per pt. Etoh withdrawal seizures History of Any Multi-Drug Resistant Organisms: None Reported Past Surgical History: Hernia Repair, Tubal Ligation Additional Past Surgical History / Comment(s): PLASTIC SURGERY TO FOREHEAD, PERFORATED STOMACH ULCER. laser surgery to right leg for varicose veins Past Anesthesia/Blood Transfusion Reactions: No Reported Reaction Past Psychological History: ADD/ADHD, Anxiety, Depression Smoking Status: Current every day smoker Past Alcohol Use History: Daily, Heavy Past Drug Use History: Marijuana, Methamphetamine, Prescription Drug Abuse - Past Family History Mother Family Medical History: Cancer Additional Family Medical History / Comment(s): OVARIAN CA Father History Unknown: Yes Additional Family Medical History / Comment(s): father when patient was very young (2 year old), he of a gunshot wound outside of a bar at the age of 23 Course Vital Signs 07/05/24 07/05/24 07/05/24 04:05 04:47 05:45 Temperature 98.0 F Pulse Rate 85 88 75 Respiratory 18 22 18 Rate Blood Pressure 134/74 145/81 122/82 O2 Sat by Pulse 100 100 98 Oximetry 07/05/24 07/05/24 07/05/24 06:00 07:04 09:00 Temperature Pulse Rate 70 68 65 Respiratory 16 16 16 Rate Blood Pressure 126/65 134/74 135/68 O2 Sat by Pulse 98 96 96 Oximetry 07/05/24 07/05/24 07/05/24 10:00 11:25 12:15 Temperature Pulse Rate 66 56 L 60 Respiratory 16 20 16 Rate Blood Pressure 137/88 122/76 168/66 O2 Sat by Pulse 96 96 96 Oximetry 07/05/24 07/05/24 07/05/24 14:54 15:45 17:00 Temperature Pulse Rate 67 73 60 Respiratory 16 20 16 Rate Blood Pressure 119/61 125/73 136/67 O2 Sat by Pulse 97 98 96 Oximetry 07/05/24 18:04 Temperature 98 F Pulse Rate 70 Respiratory 16 Rate Blood Pressure 129/70 O2 Sat by Pulse 96 Oximetry Disposition Clinical Impression: Altered mental state, Polysubstance abuse, Expressive aphasia Disposition: ADMITTED IP TO THIS [facility] Condition: Fair
[2024-07-05] MEDS: SODIUM CHLORIDE 0.9% 1,000 ML IV STA (04:42)
[2024-07-05] MEDS: LORazepam 2 MG/ML INJ IV STA (04:45)
--- NOTE | 2024-07-05 05:01 | CT ---
EXAM: CT Head Without Intravenous Contrast CLINICAL HISTORY: Neuro deficit, acute, stroke suspected TECHNIQUE: Axial computed tomography images of the head/brain without intravenous contrast. Coronal and sagittal reconstructions are performed. CTDI is 8 mGy and DLP is 332.7 mGy-cm. This CT exam was performed using one or more of the following dose reduction techniques: automated exposure control, adjustment of the mA and/or kV according to patient size, and/or use of iterative reconstruction technique. COMPARISON: 06-14-2024 FINDINGS: Brain: No hemorrhage. No significant white matter disease. Ventricles: Unremarkable. No ventriculomegaly. Bones/joints: No acute findings. Soft tissues: Unremarkable. Sinuses: Unremarkable as visualized. No acute sinusitis. Mastoid air cells: Unremarkable as visualized. No mastoid effusion. IMPRESSION: No acute findings in the head/brain. If acute infarct remains a concern, MRI may help to further evaluate if patient is a candidate.
--- NOTE | 2024-07-05 05:04 | CT ---
EXAM: CT Angiography Head With Intravenous Contrast CLINICAL HISTORY: Neuro deficit, acute, stroke suspected TECHNIQUE: Axial computed tomographic angiography images of the head with intravenous contrast. Coronal and sagittal reconstructions are performed. CTDI is 36 mGy and DLP is 33.6 mGy-cm. This CT exam was performed using one or more of the following dose reduction techniques: automated exposure control, adjustment of the mA and/or kV according to patient size, and/or use of iterative reconstruction technique. MIP reconstructed images were created and reviewed. COMPARISON: No relevant prior studies available. FINDINGS: Right internal carotid artery: Moderate amount of atherosclerotic calcifications in the cavernous portions of bilateral internal carotid arteries without significant flow-limiting stenosis. No aneurysm. Right anterior cerebral artery: Unremarkable. No occlusion or significant stenosis. No aneurysm. Right middle cerebral artery: Unremarkable. No occlusion or significant stenosis. No aneurysm. Right posterior cerebral artery: Unremarkable. No occlusion or significant stenosis. No aneurysm. Right vertebral artery: Unremarkable as visualized. Left internal carotid artery: See above. Left anterior cerebral artery: Unremarkable. No occlusion or significant stenosis. No aneurysm. Left middle cerebral artery: Unremarkable. No occlusion or significant stenosis. No aneurysm. Left posterior cerebral artery: Unremarkable. No occlusion or significant stenosis. No aneurysm. Left vertebral artery: Mild flow-limiting stenosis in V4 segment of left vertebral artery on series 502 image 37. Basilar artery: Unremarkable. No occlusion or significant stenosis. No aneurysm. IMPRESSION: No acute findings in the arteries of the head/brain. EXAM: CT Angiography Neck With Intravenous Contrast CLINICAL HISTORY: Neuro deficit, acute, stroke suspected TECHNIQUE: Routine carotid CT angiography protocol was performed with intravenous contrast. NASCET criteria using the distal ICAs for comparison were used for evaluation of stenoses. Coronal and sagittal reconstructions are performed. CTDI is 8 mGy and DLP is 332.7 mGy-cm. This CT exam was performed using one or more of the following dose reduction techniques: automated exposure control, adjustment of the mA and/or kV according to patient size, and/or use of iterative reconstruction technique. MIP reconstructed images were created and reviewed. COMPARISON: None. FINDINGS: VASCULATURE: Right common carotid artery: Unremarkable. No occlusion or significant stenosis. No dissection. Right internal carotid artery: Moderate amount of atherosclerotic calcifications in bilateral carotid bulbs and proximal internal carotid arteries. Extracranial segment is patent with no occlusion or significant stenosis. No dissection. Right external carotid artery: Unremarkable. No occlusion. Right vertebral artery: Unremarkable. No occlusion or significant stenosis. No dissection. Left common carotid artery: Unremarkable. No occlusion or significant stenosis. No dissection. Left internal carotid artery: See above. Left external carotid artery: Unremarkable. No occlusion. Left vertebral artery: Unremarkable. No occlusion or significant stenosis. No dissection. NECK: Bones/joints: Osteopenia. Moderate degenerative changes. No acute findings. Soft tissues: Unremarkable. Thyroid: 17 mm coarse calcification in left lobe of the thyroid gland. 3 mm coarse calcification in the right lobe. Lung apices: Linear atelectasis or scarring of right upper lobe. CAROTID STENOSIS REFERENCE USING NASCET CRITERIA: % ICA stenosis = (1 - narrowest ICA diameter/diameter of distal cervical ICA) x 100. Mild - <50% stenosis. Moderate - 50-69% stenosis. Severe - 70-94% stenosis. Near occlusion - 95-99% stenosis. Occluded - 100% stenosis. IMPRESSION: No acute findings in the arteries of the neck.
--- NOTE | 2024-07-05 05:07 | XR ---
EXAM: XR Chest, 1 View CLINICAL HISTORY: altered mental status TECHNIQUE: Frontal view of the chest. COMPARISON: 06-14-24, 02/13/24 FINDINGS: Lungs: Small amount of linear opacities over right upper lung zone, decreased since 2023. Pleural space: Unremarkable. Mediastinum: Unremarkable. Normal mediastinal contour. Bones/joints: No acute findings. IMPRESSION: Persistent small amount of linear opacities over right upper lung zone to represent atelectasis vs scarring.
[2024-07-05 05:12] LABS: Basophils # (A) 0.04 10*3/uL (0.00-0.10); Basophils % (A) 0.6 %; Eosinophils # (A) 0.01 10*3/uL (0.04-0.35); Eosinophils % (A) 0.2 %; HCT 29.6 % (37.2-46.3); Lymphocytes # (A) 2.31 10*3/uL (0.90-5.00); Lymphocytes % (A) 35.6 %; MCH 30.4 pg (27.0-32.0); MCHC 33.8 g/dL (32.0-37.0); Monocytes # (A) 0.64 10*3/uL (0.20-1.00); Monocytes % (A) 9.9 %; Neutrophils # (A) 3.46 10*3/uL (1.80-7.70); Neutrophils % (A) 53.4 %; Platelet Count 188 10*3/uL (140-440); RBC 3.29 10*6/uL (4.10-5.20); WBC 6.48 10*3/uL (4.50-10.00)
[2024-07-05 05:22] LABS: INR 1.1 (<1.2); Partial Thromboplastin Time 25.2 sec (22.0-30.0); Prothrombin Time 11.8 sec (10.0-12.5)
[2024-07-05] MEDS: THIAMINE 100 MG/ML 2 ML VIAL IM STA (05:27)
[2024-07-05 05:46] LABS: ALT 33 U/L (4-34); AST 61 U/L (14-36); African American GFR (CKD) >90 (>60 ml/min/1.73 sqM); Albumin 4.1 g/dL (3.5-5.0); Alcohol <10 mg/dL; Alkaline Phosphatase 126 U/L (38-126); Anion Gap 15 mmol/L; Blood Urea Nitrogen 10 mg/dL (7-17); Calcium 9.9 mg/dL (8.4-10.2); Carbon Dioxide 19 mmol/L (22-30); Chloride 103 mmol/L (98-107); Creatine Kinase 166 U/L (30-135); Glucose 91 mg/dL (74-99); Non-African American GFR(CKD) >90 (>60 ml/min/1.73 sqM); Potassium 3.3 mmol/L (3.5-5.1); Sodium 137 mmol/L (137-145); Total Bilirubin 0.9 mg/dL (0.2-1.3); Total Protein 7.6 g/dL (6.3-8.2)
[2024-07-05] MEDS: POTASSIUM CHLORIDE ER 20 MEQ TAB.ER PO STA (06:19)
[2024-07-05 06:51] LABS: Appearance,Urine Cloudy (Clear); Bacteria,Urine Occasional /hpf; Bilirubin,Urine Negative (Negative); Blood,Urine Trace (Negative); Budding Yeast,Urine Rare /hpf; Color,Urine Yellow; Glucose,Urine (UA) Negative (Negative); Hyaline Casts,Urine 4 /lpf (0-2); Ketones,Urine Negative (Negative); Leukocyte Esterase,Urine Moderate (Negative); Nitrite,Urine Positive (Negative); PH, Urine 7.5 (5.0-8.0); Protein,Urine Negative (Negative); RBC,Urine 1 /hpf (0-5); Specific Gravity,Urine 1.029 (1.001-1.035); Squamous Epithelial Cell,Urine 1 /hpf (0-4); Urobilinogen,Urine <2.0 mg/dL (<2.0); WBC,Urine 32 /hpf (0-5)
[2024-07-05 06:53] LABS: Amphetamine Screen,Urine Not Detected (NotDetected); Barbiturate Screen,Urine Detected (NotDetected); Benzodiazepines Screen,Urine Detected (NotDetected); Cocaine Screen,Urine Not Detected (NotDetected); Methadone Screen, Urine Not Detected (NotDetected); Opiate Screen,Urine Not Detected (NotDetected); Oxycodone Screen, Urine Detected (NotDetected); Phencyclidine Screen,Urine Not Detected (NotDetected); Tricyclic Antidepressant,Urine Not Detected (NotDetected); Urn Cannabinoid Scrn Detected (NotDetected)
[2024-07-05] MEDS: FAMOTIDINE 20 MG TAB PO SCH (07:21)
[2024-07-05] MEDS: DOCUSATE 100 MG CAP PO SCH (07:21)
[2024-07-05] MEDS: ASPIRIN 325 MG TAB PO STA (07:21)
[2024-07-05] MEDS: SODIUM CHLORIDE 0.9% 1,000 ML IV SCH (07:22)
[2024-07-05] MEDS: PHENYTOIN SODIUM EXTENDED 100 MG CAP PO SCH (10:44)
[2024-07-05] MEDS: LACOSAMIDE 50 MG TABLET PO SCH (10:44)
--- NOTE | 2024-07-05 14:02 | P.HPIM ---
History of Present Illness Patient is a 68-year-old female came in because of altered mental status and speech difficulty. Patient is well-known to me from her last 2 hospitalization on and at this hospital as well as [facility] for similar symptoms where she was extensively evaluated.. 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 Patient was also on antiseizure medications phenytoin Keppra and is also on Seroquel. Patient's urine drug screen is positive for barbiturates benzodiazepines and marijuana. Patient admits to using marijuana last night. Patient is also on Vimpat as an outpatient levels of phenytoin and Keppra are being obtained at this time. Patient at baseline is confused but this confusion is much worse. Patient has other social issues and was a difficult placement as well during her last 2 hospitalizations. REVIEW OF SYSTEMS: All other systems are negative except those mentioned in the HPI PHYSICAL EXAMINATION: GENERAL: The patient is alert and oriented x3, not in any acute distress. Well developed, well nourished. HEENT: Pupils are round and equally reacting to light. EOMI. No scleral icterus. No conjunctival pallor. Normocephalic, atraumatic. No pharyngeal erythema. No thyromegaly. CARDIOVASCULAR: S1 and S2 present. No murmurs, rubs, or gallops. PULMONARY: Chest is clear to auscultation, no wheezing or crackles. ABDOMEN: Soft, nontender, nondistended, normoactive bowel sounds. No palpable organomegaly. MUSCULOSKELETAL: No joint swelling or deformity. EXTREMITIES: No cyanosis, clubbing, or pedal edema. NEUROLOGICAL: Gross neurological examination did not reveal any focal deficits. SKIN: No rashes. Assessment and plan -Altered mental status secondary to her medications leading to toxic encephalopathy along with drugs. Patient was extensively counseled patient is little bit better than her admission - Chronic encephalopathy from overuse of drugs in the past -Polysubstance use - History of seizures and status epilepticus during her last hospitalization pat ient is on multiple medications levels of these are being obtained at this time - Generalized weakness - History of A-atrial fibrillation paroxysmal presently not on any anticoagulation. - Depression - Hyperlipidemia DVT prophylaxis: Lovenox Past Medical History Past Medical History: Asthma, CVA/TIA, GERD/Reflux, Liver Disease, Osteoarthritis (OA) Additional Past Medical History / Comment(s): ELEVATED LIVER ENZYMES., HX OF PERFORATED STOMACH ULCER., sister states patient has HEPATITIS C, epigastric pain, recent admission for taking too much tylenol pm per pt. Etoh withdrawal seizures History of Any Multi-Drug Resistant Organisms: None Reported Past Surgical History: Hernia Repair, Tubal Ligation Additional Past Surgical History / Comment(s): PLASTIC SURGERY TO FOREHEAD, PERFORATED STOMACH ULCER. laser surgery to right leg for varicose veins Past Anesthesia/Blood Transfusion Reactions: No Reported Reaction Past Psychological History: ADD/ADHD, Anxiety, Depression Smoking Status: Current every day smoker Past Alcohol Use History: Daily, Heavy Past Drug Use History: Marijuana, Methamphetamine, Prescription Drug Abuse - Past Family History Mother Family Medical History: Cancer Additional Family Medical History / Comment(s): OVARIAN CA Father History Unknown: Yes Additional Family Medical History / Comment(s): father when patient was very young (2 year old), he of a gunshot wound outside of a bar at the age of 23 Medications and Allergies Home Medications Medication Instructions Recorded Confirmed Type Atorvastatin [Lipitor] 40 mg PO HS 08/24/21 07/05/24 History Clopidogrel [Plavix] 75 mg PO DAILY 08/24/21 07/05/24 History Escitalopram [Lexapro] 20 mg PO DAILY 08/24/21 07/05/24 History QUEtiapine [SEROquel] 25 mg PO HS 08/24/21 07/05/24 History rOPINIRole HCL [Requip] 1 mg PO BID 08/24/21 07/05/24 History Ergocalciferol [Vitamin D2 (1250 1,250 mcg PO WEEKLY 06/14/24 07/05/24 History Mcg = 03099 Iu)] lisinopriL [Zestril] 10 mg PO DAILY 06/14/24 07/05/24 History Metoprolol Succinate (ER) [Toprol 12.5 mg PO DAILY #30 tab 06/22/24 07/05/24 Rx XL] levETIRAcetam [Keppra] 1,500 mg PO BID #120 tab 06/22/24 07/05/24 Rx Lactulose [Cephulac] 30 gm PO DAILY #7 ml 06/26/24 07/05/24 Rx Phenytoin Sodium Extended 200 mg PO BID #60 capsule 06/26/24 07/05/24 Rx [Dilantin] Folic Acid 1 mg PO DIRECTED 07/05/24 07/05/24 History Lacosamide [Vimpat] 200 mg PO DIRECTED 07/05/24 07/05/24 History Thiamine [Vitamin B-1] 100 mg PO DIRECTED 07/05/24 07/05/24 History Allergies Allergy/AdvReac Type Severity Reaction Status Date / Time No Known Allergies Allergy Verified 07/05/24 09:35 Physical Exam Vitals: Vital Signs Temp Pulse Resp BP Pulse Ox 07/05/24 12:15 60 16 168/66 96 07/05/24 11:25 56 L 20 122/76 96 07/05/24 10:00 66 16 137/88 96 07/05/24 09:00 65 16 135/68 96 07/05/24 07:04 68 16 134/74 96 07/05/24 06:00 70 16 126/65 98 07/05/24 05:45 75 18 122/82 98 07/05/24 04:47 88 22 145/81 100 07/05/24 04:05 98.0 F 85 18 134/74 100 Intake and Output 07/04/24 07/05/24 07/05/24 22:59 06:59 14:59 Other: Weight 68.039 kg Results CBC & Chem 7: 07/05/24 04:28 07/05/24 04:28 Labs: Abnormal Lab Results - Last 24 Hours (Table) 07/05/24 07/05/24 07/05/24 Range/Units 04:28 04:28 06:10 RBC 3.29 L (4.10-5.20) 10*6/uL Hgb 10.0 L (12.0-15.0) g/dL Hct 29.6 L (37.2-46.3) % Eosinophils # 0.01 L (0.04-0.35) 10*3/uL Potassium 3.3 L (3.5-5.1) mmol/L Carbon Dioxide 19 L (22-30) mmol/L AST 61 H (14-36) U/L Creatine Kinase 166 H (30-135) U/L Urine Appearance Cloudy H (Clear) Urine Blood Trace H (Negative) Urine Nitrite Positive H (Negative) Ur Leukocyte Esterase Moderate H (Negative) Urine WBC 32 H (0-5) /hpf Urine Bacteria Occasional H (None) /hpf Hyaline Casts 4 H (0-2) /lpf Urine Yeast (Budding) Rare H (None) /hpf Ur Oxycodone Screen Detected H (NotDetected) Ur Barbiturates Screen Detected H (NotDetected) U Benzodiazepines Scrn Detected H (NotDetected) U Marijuana (THC) Screen Detected H (NotDetected)
[2024-07-05] MEDS: lisinopriL 10 MG TAB PO SCH (14:50)
[2024-07-05] MEDS: ENOXAPARIN 40 MG/0.4 ML SYRINGE SQ SCH (14:51)
[2024-07-05] MEDS ORDERED: ATORVASTATIN 80 MG TAB PO SCH (21:00)
[2024-07-05] MEDS: QUEtiapine 25 MG TAB PO SCH (22:06)
[2024-07-05] MEDS: ATORVASTATIN 40 MG TAB PO SCH (22:06)
[2024-07-05 22:24] VITALS: RESP 16
[2024-07-06] MEDS: ESCITALOPRAM 20 MG TAB PO SCH (08:22)
[2024-07-06] MEDS: ASPIRIN 325 MG TAB PO SCH (08:22)
[2024-07-06] MEDS: CLOPIDOGREL 75 MG TAB PO SCH (08:22)
[2024-07-06] MEDS: THIAMINE 100 MG TAB PO SCH (08:23)
[2024-07-06] MEDS: METOPROLOL SUCCINATE (ER) 25 MG TAB.ER.24H PO SCH (08:23)
[2024-07-06 10:32] LABS: Chol/HDL Ratio 2.56 Ratio; VLDL Calculation 14.48 mg/dL (5.00-40.00)
[2024-07-06 11:45] VITALS: BP 123/62; PULSE 68; TEMP 98.4
--- NOTE | 2024-07-06 12:35 | P.CNNES ---
History of Present Illness Consult date: 07/05/24 Requesting physician: Yahir Chambers Reason for Consult: Expressive aphasia. Altered mental status. Possible stroke versus TIA History of Present Illness: Patient is a 68-year-old female well-known to neurology service from multiple recent admissions, was brought to the hospital by ambulance mill helper today at 4:02 AM. Patient was just recently admitted to the hospital on 06/18/2024, and discharged on 06/26/2024. Patient had altered mental status, nonsensical speech, and left-sided lateralized periodic discharges (LPD's). Patient was treated with Dilantin 200 mg twice daily, along with her previous medications of Keppra 1500 mg twice daily and Vimpat 200 mg twice daily. Patient was subsequently sent home. Patient now came back to the ER. Patient states that she came to the hospital because she was having pain in the stomach, did not feel well. Patient able to speak much more clear sentences. However she states that in the last few days, she "cannot talk right". Patient states that her right side goes numb. When she wakes up, she has hard time talking but it gets better. Apparently patient was asleep at this time and when I woke her up, she was having difficulty speaking but he started clearing up. She states that she lately has been somewhat confused. Patient states she has hard time of attention to do anything. Lately she is mixing up with months. As per EMS flowsheet, when they arrived, patient was ambulatory at the scene.. Patient stated "I have been having blurred vision for about 20 minutes". 2 men on the scene at the house stated that they thought she has dementia and had been acting like this on and off since January. They also contradicted themselves saying that it had been going on for 2 weeks. She has a history of CVA with speech difficulties. Her normal speech was slurred. Patient had equal flexo operator and strength and no facial droop. Her blood glucose was 118. Her blood pressure was 157/88, pulse rate 91 respiration 24 saturation 99%. Her blood test shows normal WBC hemoglobin 10.0, normal platelets. PT PTT normal, CMP significant for low potassium 3.3 and elevated AST 61. Troponins negative. UA shows positive nitrite, moderate leukocyte Estrace. Urine drug screen positive for oxycodone, barbiturate, benzodiazepine and marijuana. Blood alcohol level is less than 10. EKG showed sinus rhythm. CT head revealed no acute findings. I personally reviewed CT head, agree with the findings. Chest x-ray showed persistent small amount of linear opacities over the right upper lung zone to represent atelectasis versus scarring. Patient states that she quit drinking 6 to 7 months ago. On the last admission, my discussion with [facility] transfer team: I talked to [facility] transfer team (06/21/2024) and informed all the current status of the patient. Spent 11 minutes. I then talked to the Neuro-wine steward/stewardess at [facility] Dr. Connor in detail. She did review patient's records from previous admissions. She mentioned that patient has history of polysubstance abuse and medication noncompliance as she has been transferred to [facility] multiple times for similar episodes, or triggered by some sort of intoxication. Last episode was in February 2024. Her examination seems similar to what I described to her as "nonsensical speech and transient altered mental status". She had an EEG multiple times which consistently showed no correlate to these episodes just encephalopathy and LPDs. They did not treat the LPDs and she eventually improved. During one hospitalization she was on Vimpat, Keppra and Depakote, but February admission she was discharged on Keppra 2 g twice a day and Vimpat 200 mg twice a day. Her LP was normal and same with the MRI and vessel imaging. At this point, she would not escalate therapy, as treating her known LPDs is only going to make her more confused. She has significant cortical atrophy for 68-year-old which is likely due to her substance abuse but her cerebral reserve is just that much lower and will take longer to recover. [facility] declined to accept her. Records from [facility]: CTA of head and neck, and CTV head and neck 02/22/2024 showed focal cervical and intracranial atherosclerosis contributing to moderate stenosis of the right vertebral artery origin, mild stenosis of the right carotid bulb and mild to moderate segmental narrowing of the right parasellar ICA. Patent dural and major cortical veins within the limits of suboptimal bolus timing. MRI of the brain without contrast 02/18/2024 was incomplete nondiagnostic exam. Motion degraded T2 flair weighted images demonstrate no midline shift, herniation or sizable extra-axial fluid collection. No suspicious intracranial mass. MRI of the cervical spine 02/20/2024 was incomplete and near nondiagnostic and needs to be repeated. There is probably too high signal intensity within the cord at C4-5 which may relate to compressive myelopathy. There is severe cord compression present at this level with moderate to severe compression at C3-4 and moderate compression at C6-7. Cord signal abnormality. Orthopedics saw the patient, no urgent or emergent surgical indication at this time. Recommend outpatient follow-up with nonop spine for evaluation of her chronic myelopathy. Continuous EEG monitoring 02/16/2024 and 02/17/2024 revealed LPD's arising from the mid and posterior temporal and parietal temporal region of the left hemisphere. It was felt patient has multiple reasons for seizures including substance abuse, alcohol withdrawal, however the left focal temporal sharps are concerning for underlying epileptic focus of undetermined etiology. Patient was admitted to [facility] in January 2020 for after being found down by her roommate and intubated for airway protection. EEG at that time showed LPD's over the left side suggestive of nonconvulsive status epilepticus. She was started on K eppra and Depakote at that time. CSF was normal. Patient was alert and oriented x 1 prior to DC to subacute rehab. Due to decline in speech 02/21/2025, repeated long-term monitoring showed left temporal sharps seen on previous EEG but no seizures or epileptiform abnormalities. Low likelihood of HSV, stopped acyclovir. They recommended to continue Keppra 2 g twice a day and Vimpat 200 mg twice a day. Epilepsy follow- up requested. Recommended to continue Lipitor 40 mg, aspirin 81 mg. They believe there was no clinical indication to resume Plavix. On examination patient was markedly encephalopathic with nonsensical speech, some echolalia, no focal neurologic deficit. Depakote was discontinued and the patient was continued on Keppra 2 g twice a day and Vimpat 200 mg twice a day. Patient was recommended to follow-up with Dr. Hubbard in epilepsy clinic on 03/30/2024. She was discharged on Vimpat 200 mg twice daily and Keppra [address] cervical spine at OSH showed atlantoaxial joint subluxation that may be chronic/degenerative. Review of Systems All pertinent positive and negative review of systems mentioned in the HPI. Otherwise unremarkable. Past Medical History Past Medical History: Asthma, CVA/TIA, GERD/Reflux, Liver Disease, Osteoarthritis (OA) Additional Past Medical History / Comment(s): ELEVATED LIVER ENZYMES., HX OF PERFORATED STOMACH ULCER., sister states patient has HEPATITIS C, epigastric pain, recent admission for taking too much tylenol pm per pt. Etoh withdrawal seizures History of Any Multi-Drug Resistant Organisms: None Reported Past Surgical History: Hernia Repair, Tubal Ligation Additional Past Surgical History / Comment(s): PLASTIC SURGERY TO FOREHEAD, PERFORATED STOMACH ULCER. laser surgery to right leg for varicose veins Past Anesthesia/Blood Transfusion Reactions: No Reported Reaction Past Psychological History: ADD/ADHD, Anxiety, Depression Smoking Status: Current every day smoker Past Alcohol Use History: Daily, Heavy Past Drug Use History: Marijuana, Methamphetamine, Prescription Drug Abuse - Past Family History Mother Family Medical History: Cancer Additional Family Medical History / Comment(s): OVARIAN CA Father History Unknown: Yes Additional Family Medical History / Comment(s): father when patient was very young (2 year old), he of a gunshot wound outside of a bar at the age of 23 Medications and Allergies Home Medications Medication Instructions Recorded Confirmed Type Atorvastatin [Lipitor] 40 mg PO HS 08/24/21 07/05/24 History Clopidogrel [Plavix] 75 mg PO DAILY 08/24/21 07/05/24 History Escitalopram [Lexapro] 20 mg PO DAILY 08/24/21 07/05/24 History QUEtiapine [SEROquel] 25 mg PO HS 08/24/21 07/05/24 History rOPINIRole HCL [Requip] 1 mg PO BID 08/24/21 07/05/24 History Ergocalciferol [Vitamin D2 (1250 1,250 mcg PO WEEKLY 06/14/24 07/05/24 History Mcg = 88419 Iu)] lisinopriL [Zestril] 10 mg PO DAILY 06/14/24 07/05/24 History Metoprolol Succinate (ER) [Toprol 12.5 mg PO DAILY #30 tab 06/22/24 07/05/24 Rx XL] levETIRAcetam [Keppra] 1,500 mg PO BID #120 tab 06/22/24 07/05/24 Rx Lactulose [Cephulac] 30 gm PO DAILY #7 ml 06/26/24 07/05/24 Rx Phenytoin Sodium Extended 200 mg PO BID #60 capsule 06/26/24 07/05/24 Rx [Dilantin] Folic Acid 1 mg PO DIRECTED 07/05/24 07/05/24 History Lacosamide [Vimpat] 200 mg PO DIRECTED 07/05/24 07/05/24 History Thiamine [Vitamin B-1] 100 mg PO DIRECTED 07/05/24 07/05/24 History Allergies Allergy/AdvReac Type Severity Reaction Status Date / Time No Known Allergies Allergy Verified 07/05/24 09:35 Physical Examination - Vital Signs Vital Signs: Vital Signs Temp Pulse Resp BP Pulse Ox 07/05/24 07:04 68 16 134/74 96 07/05/24 06:00 70 16 126/65 98 07/05/24 05:45 75 18 122/82 98 07/05/24 04:47 88 22 145/81 100 07/05/24 04:05 98.0 F 85 18 134/74 100 Intake and Output 07/04/24 07/05/24 07/05/24 22:59 06:59 14:59 Other: Weight 68.039 kg Patient is an elderly female, in no acute distress. Patient is alert awake. Patient knows that she is in [place] in [place], states it is August, but then said was July and the year is , could not come up with 2024. Patient able to name objects like glasses, knuckles, earlobe pen but could not repeat sentences. She sometimes have paraphasic errors. Sometimes she slurs. Attention, concentration decreased and fund of knowledge is quite limited. On cranial nerve examination, pupils are equal, round and reacting to light, visual biswas are full on confrontation, although she neglects right side on double simultaneous stimulation. Extraocular muscles are intact with no nystagmus. Patient is having difficulty keeping her eyes open. Face is s ymmetric, tongue protrudes to the midline. Palatal elevation and sensation normal, hearing and shoulder shrug normal, facial sensation normal. On muscle strength testing, there is no pronator drift and the strength is normal in arms and legs distally and proximally. Deep tendon reflexes are symmetric but hypoactive and plantars are flat. Sensory to touch is equal with no neglect on double simultaneous stimulation. Cerebellar function showed no ataxia for [id number] testing. No dysdia dochokinesia. No ataxia for [id number] testing on either side. Tone and bulk of muscles normal. Gait deferred.. On general examination, there is no carotid bruit or murmur, S1-S2 audible. Chest is clear on consultation. Abdomen is soft nontender. No organomegaly, bowel sounds present. Peripheral pulses are present. No peripheral edema. Results - Laboratory Findings CBC and BMP: 07/05/24 04:28 07/05/24 04:28 Abnormal Lab Findings: Abnormal Labs 07/05/24 07/05/24 07/05/24 04:28 04:28 06:10 RBC 3.29 L Hgb 10.0 L Hct 29.6 L Eosinophils # 0.01 L Potassium 3.3 L Carbon Dioxide 19 L AST 61 H Creatine Kinase 166 H Urine Appearance Cloudy H Urine Blood Trace H Urine Nitrite Positive H Ur Leukocyte Esterase Moderate H Urine WBC 32 H Urine Bacteria Occasional H Hyaline Casts 4 H Urine Yeast (Budding) Rare H Ur Oxycodone Screen Detected H Ur Barbiturates Screen Detected H U Benzodiazepines Scrn Detected H U Marijuana (THC) Screen Detected H Assessment and Plan Assessment: * Altered mental status, probable metabolic encephalopathy. Rule out UTI. * Recent history of abnormal EEG with LPDs involving left hemispheric region * History of alcoholism, blood alcohol level borderline negative on this admission. * History of polysubstance abuse * Chronic tobacco use * History of seizure disorder * Mild hypokalemia * History of recurrent falls * History of L1 vertebral body compression fracture 25% height loss * Atrial fibrillation with rapid ventricular rate * Possible hepatic cirrhosis noted on CT abdomen Plan: * Patient admitted for abdominal pain. We will defer to IM. * Regarding mental confusion, altered mental status, we will check EEG, rule out LPD's. * Continue Keppra 1500 mg twice daily, Vimpat 200 mg twice daily and Dilantin 200 mg twice daily. * Check Dilantin and Keppra levels. * CTA of head and neck showed no acute findings of the arteries in the head/brain. * 2-D echo 06/19/2024 revealed normal LV EF 60-65%. Mild concentric LVH. No obvious regional wall motion abnormality. Moderate left atrial dilation. * Continue aspirin 81 mg, Plavix 75 mg and Lipitor 40 mg. * Lipid panel * Patient has abnormal UA, but the temperature and white cells are normal. * Her previous B12 836, folate 6.10, TSH normal 0.524. Continue folic acid 1 mg daily. * Neurology will follow. Thank you for the consult.
[2024-07-06] MEDS: POTASSIUM CHLORIDE ER 20 MEQ TAB.ER PO STA (14:35)
[2024-07-06] MEDS: FOLIC ACID 1 MG TAB PO SCH (14:41)
--- NOTE | 2024-07-06 22:38 | EEG ---
ELECTROENCEPHALOGRAM REPORT PREAMBLE: This is a 68-year-old female with altered mental status. The patient had previous multiple abnormal EEGs. CURRENT MEDICATIONS: 1. Aspirin. 2. Lipitor. 3. Vimpat. 4. Keppra. 5. Dilantin. EEG FINDINGS: This is a 21-channel digital EEG recorded with the video component, utilizing 10/20 international system with referential and bipolar montage. The background consists of moderately developed, not very well regulated, mixed frequencies of 5 to 6 Hz theta, intermixed with some alpha and some fast frequency beta activity seen in bihemispheric region. Background is posterior dominant and seems to be very slightly reactive to eye opening and closing. Photic driving response was not clearly seen. Left hemisphere, sharp appearing waves were seen. Unfortunately, EKG channel was not available to compare to make sure it was not an EKG artifact; however, with given her history of previous EEG, this may represent the sharp waves/LPDs that were seen in the previous EEGs; however, they appear much less aggressive and less frequent as well. Different stages of sleep were not clearly seen. IMPRESSION: This is an abnormal EEG due to: 1. Background slowing of moderate degree, suggestive of generalized cerebral dysfunction as can be seen with toxic metabolic encephalopathy or related to diffuse structural brain abnormality. Clinical correlation is recommended. 2. Presence of left hemispheric sharply-contoured waves, which were still present, but not as aggressive and frequent as compared to the previous studies. Suggest underlying cortical irritability. Clinical correlation is recommended. MMARPITL / IJN: [id number] / LAM
--- NOTE | 2024-07-07 09:14 | P.PN ---
Subjective Progress Note Date: 07/06/24 Patient was seen for a follow-up. Patient is sitting by the window, fully dressed, waiting for the ride. Patient states that once in a great while she smokes marijuana. She denies use of any opiates or pain pills, however her urine was positive for opiates. Urine was also positive for marijuana, jayda turate and benzodiazepines. Her home medications does not list about opiates. Patient has not received any opiates in the hospital. Objective - Vital Signs Vital signs: Vital Signs Temp 98.4 F 07/06/24 11:43 Pulse 68 07/06/24 11:43 Resp 16 07/06/24 11:43 BP 123/62 07/06/24 11:43 Pulse Ox 97 07/06/24 11:43 FiO2 Intake & Output 07/05/24 07/06/24 07/06/24 18:59 06:59 18:59 Intake Total 750 352 Balance 750 352 Weight 68.2 kg Intake: IV 10 10 Invasive Line 2 10 10 Oral 740 342 Other: Voiding Method Toilet Toilet # Voids 1 2 # Bowel Movements 1 1 - Exam Patient is sitting comfortably. Her speech is mostly fine, but still some word finding difficulties at times. Still has difficulty with repetition. However she is fully interactive. - Labs CBC & Chem 7: 07/05/24 04:28 07/05/24 04:28 Labs: Abnormal Lab Results - Last 24 Hours (Table) 07/05/24 Range/Units 10:26 Free Phenytoin <0.8 L (0.8-2.0) ug/mL Assessment and Plan Assessment: * Altered mental status, probable metabolic encephalopathy. Rule out UTI. * Recent history of abnormal EEG with LPDs involving left hemispheric region * History of alcoholism, blood alcohol level negative on this admission. * History of polysubstance abuse * Chronic tobacco use * History of seizure disorder * Mild hypokalemia * History of recurrent falls * History of L1 vertebral body compression fracture 25% height loss * Atrial fibrillation with rapid ventricular rate * Possible hepatic cirrhosis noted on CT abdomen Plan: * Patient admitted for abdominal pain. We will defer to IM. * EEG was performed which was abnormal due to background slowing of moderate to severe degree, suggestive of generalized cerebral dysfunction as can be seen with toxic metabolic encephalopathy, or related to diffuse structural brain abnormality. Clinical correlation is recommended. Presence of left hemispheric sharply contoured waves, which were still present but not as aggressive and frequent as compared to previous studies. Clinical correlation is recommended. * Continue Keppra 1500 mg twice daily, Vimpat 200 mg twice daily and Dilantin 200 mg twice daily. * Dilantin 4.2 and Keppra 34.2 (3-60). The [facility] neurointensivist had recommended to wean off Dilantin. Therefore we will not give extra boluses of Dilantin. She is on appropriate dose of Keppra and Vimpat. * CTA of head and neck showed no acute findings of the arteries in the head/brain. * 2-D echo 06/19/2024 revealed normal LV EF 60-65%. Mild concentric LVH. No obvious regional wall motion abnormality. Moderate left atrial dilation. * Continue aspirin 81 mg, Plavix 75 mg and Lipitor 40 mg. * Lipid panel cholesterol 137, LDL 69, HDL 53 and triglycerides 72. Lipids well-controlled on Lipitor 40 mg daily. * Patient had history of atrial fibrillation during last admission. Patient currently on Plavix 75 mg. Cardiology, Dr. Johnston has seen patient on last admission (note from 06/21/2024), and felt patient was not a candidate for anticoagulation due to frequent falls and altered mental status. * Patient has abnormal UA, but the temperature and white cells are normal. * Her previous B12 836, folate 6.10, TSH normal 0.524. Continue folic acid 1 mg daily. * Patient's urine drug screen positive for oxycodone, barbiturate, benzodiazepine and marijuana. Patient not prescribed oxycodone/opiate. Recommend abstinence from polysubstance abuse. Recommend complete abstinence from marijuana.
--- NOTE | 2024-07-11 23:06 | P.DS ---
Providers Date of admission: 07/05/24 06:41 Expected date of discharge: 07/06/24 Attending physician: Rachael Zuniga Consults: 07/05/24 06:42 Consult Physician Routine Consulting Provider: Aston Dubois Consult Reason/Comments: Expressive aphasia. Altered mental status. Possible stroke versus TIA Do you want consulting provider notified?: Yes Primary care physician: Stated None Hospital Course: Final diagnosis -Altered mental status secondary to her medications leading to toxic encephalopathy along with drugs. 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 - Depression - Hyperlipidemia GI prophylaxis DVT prophylaxis: Lovenox Full code Discharge disposition Patient is being discharged in a stable condition with guarded prognosis to home. Patient will follow-up with Dr. Juan Zuniga to establish in the outpatient setting upon discharge. Patient is to continue with current medications and outpatient follow-up to establish as scheduled. Total time taken is greater than 35 minutes. Hospital course This is a 68-year-old female who was recently admitted with increased altered mental status likely secondary to polysubstance use although patient reports she does not use illicit drugs. Patient is a poor historian and continues with intermittent confusion although is at baseline at this time. Patient reports is going home. Patient instructed to refrain from all alcohol and drug use other than prescribed by providers. Patient to follow-up with orthopedics and is to continue with conservative measures at this time. Patient is keen on going home and reports she is fine to go home today. Patient has been cleared by consultations. Please refer to consultation notes for further HPI. Currently no reports of chest pain, shortness of breath, or palpitations. Patient is afebrile. No reports of nausea or vomiting and patient is tolerating diet. Patient will be discharged home today. Patient is extremely high risk for readmissions and has had multiple visits secondary to noncompliance and continued drug use. Physical exam: Gen: This is a 68-year-old female who is awake, alert and oriented x 2-3, baseline, well-developed, appears elderly HEENT: Head is atraumatic, normocephalic. Pupils equal, round. Sclerae is anicteric. NECK: Supple. No JVD. No lymphadenopathy. No thyromegaly. LUNGS: Diminished breath sounds bilaterally otherwise clear to auscultation. No wheezes or rhonchi. No intercostal retractions. HEART: S1, S2 are muffled ABDOMEN: Soft. Bowel sounds are present. No masses. No tenderness. EXTREMITIES: No pedal edema. No calf tenderness. NEUROLOGICAL: Patient is awake, alert and oriented x3. Cranial nerves 2 through 12 are grossly intact. Please refer to medication reconciliation sheet for a list of medications. The impression and plan of care has been dictated by Aria Ndiaye, Nurse Practitioner as directed. Dr. Izabella MD I have performed a history and examination and MDM of this patient, discussed the same with the dictator, and agree with the dictator's assessment and plan as written ,documented as a scribe. Based on total visit time, I have performed more than 50% of the visit. Patient Condition at Discharge: Fair Plan - Discharge Summary Discharge Rx Participant: Yes New Discharge Prescriptions: New Famotidine [Pepcid] 20 mg PO BID #60 tab Docusate [Colace] 100 mg PO BID #60 cap Continue QUEtiapine [SEROquel] 25 mg PO HS Clopidogrel [Plavix] 75 mg PO DAILY Atorvastatin [Lipitor] 40 mg PO HS Lactulose [Cephulac] 30 gm PO DAILY #7 ml Folic Acid 1 mg PO DIRECTED Thiamine [Vitamin B-1] 100 mg PO DIRECTED Lacosamide [Vimpat] 200 mg PO BID #0 rOPINIRole HCL [Requip] 1 mg PO BID Escitalopram [Lexapro] 20 mg PO DAILY lisinopriL [Zestril] 10 mg PO DAILY Ergocalciferol [Vitamin D2 (1250 Mcg = 12085 Iu)] 1,250 mcg PO WEEKLY levETIRAcetam [Keppra] 1,500 mg PO BID #120 tab Metoprolol Succinate (ER) [Toprol XL] 12.5 mg PO DAILY #30 tab Phenytoin Sodium Extended [Dilantin] 200 mg PO BID #60 capsule Discharge Medication List Atorvastatin [Lipitor] 40 mg PO HS 08/24/21 [History] Clopidogrel [Plavix] 75 mg PO DAILY 08/24/21 [History] Escitalopram [Lexapro] 20 mg PO DAILY 08/24/21 [History] QUEtiapine [SEROquel] 25 mg PO HS 08/24/21 [History] rOPINIRole HCL [Requip] 1 mg PO BID 08/24/21 [History] Ergocalciferol [Vitamin D2 (1250 Mcg = 49563 Iu)] 1,250 mcg PO WEEKLY 06/14/24 [History] lisinopriL [Zestril] 10 mg PO DAILY 06/14/24 [History] Metoprolol Succinate (ER) [Toprol XL] 12.5 mg PO DAILY #30 tab 06/22/24 [Rx] levETIRAcetam [Keppra] 1,500 mg PO BID #120 tab 06/22/24 [Rx] Lactulose [Cephulac] 30 gm PO DAILY #7 ml 06/26/24 [Rx] Phenytoin Sodium Extended [Dilantin] 200 mg PO BID #60 capsule 06/26/24 [Rx] Folic Acid 1 mg PO DIRECTED 07/05/24 [History] Thiamine [Vitamin B-1] 100 mg PO DIRECTED 07/05/24 [History] Docusate [Colace] 100 mg PO BID #60 cap 07/06/24 [Rx] Famotidine [Pepcid] 20 mg PO BID #60 tab 07/06/24 [Rx] Lacosamide [Vimpat] 200 mg PO BID #0 07/06/24 [Rx] Follow up Appointment(s)/Referral(s): Kalie Bonner MD [STAFF PHYSICIAN] - 1 Week Patient Instructions/Handouts: Hepatic Encephalopathy (DC), Encephalopathy (DC) Activity/Diet/Wound Care/Special Instructions: Activity limited until follow-up Follow-up and establish with primary care provider Follow-up with neurology outpatient Continue taking medications as prescribed Avoid alcohol and drug use Discharge/Stand Alone Forms: AA Meetings Cookie Garcia Pamphlet, Who Do I Call?, Community Resources, Outpatient Counseling, Inp Substance Abuse Facilities, Personal Diamond Setter Discharge Disposition: HOME WITH HOME HEALTH SERVICES
== END 2024-07-06 21:07 | disposition home health service (06) ==
LOC: EC 04:02 → 3SCARD 06:41 → INTOOBSV 06:41 → 3SCARD 16:56
PROVIDERS: ADMIT Hospitalist; ATTEND Hospitalist
DX: G92.8 Other toxic encephalopathy (principal); G93.49 Other encephalopathy; R94.01 Abnormal electroencephalogram [EEG]; E87.6 Hypokalemia; R53.1 Weakness; R29.6 Repeated falls; I48.0 Paroxysmal atrial fibrillation; F10.21 Alcohol dependence, in remission; F19.11 Other psychoactive substance abuse, in remission; E78.5 Hyperlipidemia, unspecified; F17.200 Nicotine dependence, unspecified, uncomplicated; F32.A Depression, unspecified; F41.9 Anxiety disorder, unspecified; G40.909 Epilepsy, unspecified, not intractable, without status epilepticus; K21.9 Gastro-esophageal reflux disease without esophagitis; Z79.02 Long term (current) use of antithrombotics/antiplatelets; Z79.899 Other long term (current) drug therapy; Z86.73 Personal history of transient ischemic attack (TIA), and cerebral infarction without residual deficits
CPT/HCPCS: 96372 ×2; 96374; 99291; 36415; 95816; 93005; 97161; 97165; 92523; 80186; 80061; 80053; 80177; 82550; 80185; 84484; 85025; 85610; 85730; 81001; 80306; 80320; 71045; 70496; 70450; 70498; G0378 ×2; J2060; J3411; J1650 ×2; Q9967; 99285

== ENCOUNTER 2024-08-14 22:59 | Emergency (ER) | payer MEDICARE, OTHER ==
[2024-08-14 23:10] VITALS: RESP 18
--- NOTE | 2024-08-15 00:52 | CT ---
EXAM: CT Head Without Intravenous Contrast CLINICAL HISTORY: ITS.REASON CT Reason: headache s/p fall TECHNIQUE: Axial computed tomography images of the head/brain without intravenous contrast. CTDI is 45.3 mGy and DLP is 1078.4 mGy-cm. This CT exam was performed using one or more of the following dose reduction techniques: automated exposure control, adjustment of the mA and/or kV according to patient size, and/or use of iterative reconstruction technique. COMPARISON: No relevant prior studies available. FINDINGS: No acute intracranial hemorrhage. No midline shift or mass effect. The territorial mccartney-white matter differentiation is maintained throughout. Age-related cerebral volume loss. Periventricular and subcortical white matter hypoattenuation, consistent with chronic microangiopathy. The visualized orbits appear grossly unremarkable. The calvarium is intact. Left facial soft tissue swelling. The visualized paranasal sinuses and mastoid air cells are grossly clear. IMPRESSION: 1. No acute intracranial hemorrhage, midline shift, or mass effect. 2. Left facial soft tissue swelling. EXAM: CT Cervical Spine Without Intravenous Contrast CLINICAL HISTORY: ITS.REASON CT Reason: headache s/p fall TECHNIQUE: Axial computed tomography images of the cervical spine without intravenous contrast. CTDI is 8.7 mGy and DLP is 195.8 mGy-cm. This CT exam was performed using one or more of the following dose reduction techniques: automated exposure control, adjustment of the mA and/or kV according to patient size, and/or use of iterative reconstruction technique. COMPARISON: No relevant prior studies available. FINDINGS: The vertebral body heights are maintained. The craniocervical junction is intact. The atlanto-dens interval is maintained. The dens is intact. There is no spondylolisthesis. Multilevel cervical spondylosis and degenerative disc disease. Straightening of the cervical lordosis. IMPRESSION: No acute fracture or subluxation of the cervical spine.
--- NOTE | 2024-08-15 01:11 | ED ---
General Adult HPI - General Chief complaint: Fall Stated complaint: Fall Time Seen by Provider: 08/15/24 01:00 Source: patient, EMS Mode of arrival: EMS Limitations: no limitations - History of Present Illness Initial comments: Patient is a 68 y/o female presenting today for facial swelling after ground level fall. Pt states that 2 days ago she went to get up from the toilet and lost her balance, causing her to fall forward and hit strike her face. She does endorse "blacking out for a few seconds". She was able to ambulate after the fall. She came in today due to persistent left facial pain. Pt states she is on a blood thinner but unsure which one. No pain medications at home trialed for pain. Pt endorses headache focused along left side of her head and left sided neck discomfort. She denies changes in vision, dizziness, numbness, focal weakness, chest pain, abdominal pain, back pain, fevers or confusion. Of note, pt states that she does have some difficulty with speech however this is from an old stroke and has been ongoing since then. - Related Data Home Medications Medication Instructions Recorded Confirmed Atorvastatin [Lipitor] 40 mg PO HS 08/24/21 07/05/24 Clopidogrel [Plavix] 75 mg PO DAILY 08/24/21 07/05/24 Escitalopram [Lexapro] 20 mg PO DAILY 08/24/21 07/05/24 QUEtiapine [SEROquel] 25 mg PO HS 08/24/21 07/05/24 rOPINIRole HCL [Requip] 1 mg PO BID 08/24/21 07/05/24 Ergocalciferol [Vitamin D2 (1250 1,250 mcg PO WEEKLY 06/14/24 07/05/24 Mcg = 58430 Iu)] lisinopriL [Zestril] 10 mg PO DAILY 06/14/24 07/05/24 Folic Acid 1 mg PO DIRECTED 07/05/24 07/05/24 Thiamine [Vitamin B-1] 100 mg PO DIRECTED 07/05/24 07/05/24 Previous Rx's Medication Instructions Recorded Metoprolol Succinate (ER) [Toprol 12.5 mg PO DAILY #30 tab 06/22/24 XL] levETIRAcetam [Keppra] 1,500 mg PO BID #120 tab 06/22/24 Lactulose [Cephulac] 30 gm PO DAILY #7 ml 06/26/24 Phenytoin Sodium Extended 200 mg PO BID #60 capsule 06/26/24 [Dilantin] Docusate [Colace] 100 mg PO BID #60 cap 07/06/24 Famotidine [Pepcid] 20 mg PO BID #60 tab 07/06/24 Lacosamide [Vimpat] 200 mg PO BID #0 07/06/24 Allergies Allergy/AdvReac Type Severity Reaction Status Date / Time No Known Allergies Allergy Verified 08/15/24 14:03 Review of Systems ROS Statement: Those systems with pertinent positive or pertinent negative responses have been documented in the HPI. ROS Other: All systems not noted in ROS Statement are negative. Past Medical History Past Medical History: Asthma, CVA/TIA, GERD/Reflux, Liver Disease, Osteoarthritis (OA) Additional Past Medical History / Comment(s): ELEVATED LIVER ENZYMES., HX OF PERFORATED STOMACH ULCER., sister states patient has HEPATITIS C, epigastric pain, recent admission for taking too much tylenol pm per pt. Etoh withdrawal seizures History of Any Multi-Drug Resistant Organisms: None Reported Past Surgical History: Hernia Repair, Tubal Ligation Additional Past Surgical History / Comment(s): PLASTIC SURGERY TO FOREHEAD, PERFORATED STOMACH ULCER. laser surgery to right leg for varicose veins Past Anesthesia/Blood Transfusion Reactions: No Reported Reaction Past Psychological History: ADD/ADHD, Anxiety, Depression Smoking Status: Current every day smoker Past Alcohol Use History: Daily, Heavy Past Drug Use History: Marijuana, Methamphetamine, Prescription Drug Abuse - Past Family History Mother Family Medical History: Cancer Additional Family Medical History / Comment(s): OVARIAN CA Father History Unknown: Yes Additional Family Medical History / Comment(s): father when patient was very young (2 year old), he of a gunshot wound outside of a bar at the age of 23 General Exam - General Exam Comments Initial Comments: PE: CONSTITUTIONAL: No apparent distress, well appearing SKIN: Warm, dry, no jaundice, hives or petechiae. Greenpurple contusion to the left cheek surrounding the left eye EYES: Pupils are equally round, extraocular movements intact without nystagmus, mildly erythematous conjunctiva of the left eye, non-icteric sclera, extraocular movements are intact without pain or nystagmus HENT: Normocephalic, contusion to left cheekbone as noted above, remainder of head is atraumatic without palpable contusions, moist mucus membranes, oropharynx clear without exudates NECK: , C-collar in place on my assessment, no midline spinal tenderness palpation PULMONARY: Clear to auscultation without wheezes, rhonchi, or rales, normal excursion, no accessory muscle use and no stridor CARDIOVASCULAR: Regular rate, rhythm, normal S1 and S2. No appreciated murmurs, rubs or gallops. Strong radial pulses with intact distal perfusion. No lower extremity edema GASTROINTESTINAL: Soft, active bowel sounds throughout, non-tender, non- distended, no palpable masses, no rebound or guarding. No hepatosplenomegaly MUSCULOSKELETAL: Extremities have no gross deformity or signs of injury, she is able to move all 4 extremities to full range of motion and ambulate independently NEUROLOGIC:_a/o x 3, GCS 15, normal mentation and speech. Moves all extremities x 4 without motor or sensory deficit PSYCHIATRIC:_normal mood and affect, thought process is clear and linear Limitations: no limitations Course Vital Signs 08/14/24 08/15/24 23:07 01:29 Temperature 98.0 F 97.8 F Pulse Rate 86 88 Respiratory 18 18 Rate Blood Pressure 147/72 122/64 O2 Sat by Pulse 99 99 Oximetry Medical Decision Making - Medical Decision Making Was pt. sent in by a medical professional or institution (, PA, PRESS WRITER, urgent care, hospital, or care home...) When possible be specific @ -No Did you speak to anyone other than the patient for history (EMS, parent, family, police, friend...)? What history was obtained from this source @ -No Did you review nursing and triage notes (agree or disagree)? Why? @ -I reviewed nursing and triage notes-disagree with triage note, patient denies dizziness Differential Diagnosis (chest pain, altered mental status, abdominal pain women, abdominal pain men, vaginal bleeding, weakness, fever, dyspnea, syncope, headache, dizziness, GI bleed, back pain, seizure, CVA, palpatations, mental health, musculoskeletal)? @ -Differential diagnosis main broad however top considerations include fracture, contusion, concussion, traumatic intracranial hemorrhage, C-spine fracture or ligamentous injury this is not all-inclusive list EKG interpreted by me (3pts min.). @ -As above X-rays interpreted by me (1pt min.). @ -None done CT interpreted by me (1pt min.). @ -Personally reviewed CT brain, I see no evidence of intracranial hemorrhage, no evidence of skull fracture, CT brain was able to obtain views through nasal bones and orbits I see no evidence of fracture, on review of CT C-spine I see no evidence of fracture or malalignment I agree with radiologist interpretation U/S interpreted by me (1pt. min.). @ -None done What testing was considered but not performed or refused? (CT, X-rays, U/S, labs)? Why? @ -None What meds were considered but not given or refused? Why? @ -None Did you discuss the management of the patient with other professionals (professionals i.e. , PA, PRESS WRITER, lab, RT, psych nurse, social service director, armature varnisher, teacher, security officer, major case detective)? Give summary @ -No Was smoking cessation discussed for >3mins.? @ -No Was critical care preformed (if so, how long)? @ -No Were there social determinants of health that impacted care today? How? (Homelessness, low income, unemployed, alcoholism, drug addiction, transportation, low edu. Level, literacy, decrease access to med. care, detention, rehab)? @ -No Was there de-escalation of care discussed even if they declined (Discuss DNR or withdrawal of care, Hospice)? @ -No What co-morbidities impacted this encounter? (DM, HTN, Smoking, COPD, CAD, Cancer, CVA, ARF, Chemo, Hep., AIDS, mental health diagnosis, sleep apnea, morbid obesity)? @ -Prior CVA Was patient admitted / discharged? Hospital course, mention meds given and route, prescriptions, significant lab abnormalities, going to OR and other pertinent info. @Discharged-is a pleasant 68-year-old female presenting today for left facial pain 2 days after a ground-level fall at home. Of note patient was seen and examined in the waiting room due to ED at overflow capacity due to multiple boarding patients in the emergency department. On my evaluation I obtained patient's permission to evaluate her and discuss her care in the waiting room. Exam is significant for a contusion that appeared to be of about 2 days and age, along the left cheekbone and left orbit, patient had all extraocular movements intact without pain or difficulty. No gross facial deformities were noted. No additional palpable contusions to scalp, neck is nontender. Of note patient had already been seen by triage provider and CT brain and C-spine have been ordered and completed. These were negative for acute process. After reviewing patient's imaging I updated patient to imaging findings and cleared their C- Spine. There is no midline cervical neck tenderness or step-offs. The patient denies any numbess, tingling, or weakness of the extremities when moving neck through full ROM. The patient is able to range their neck completely without midline cervical pain, numbness, tingling or weakness. Discussed with patient reassuring findings on imaging and plan for discharge. Discussed with her the importance of applying ice to areas of swelling and using Tylenol for pain control. We discussed signs and symptoms warranting return to the ER as well as plan for discharge. Patient agreeable with plan of care. In my medical judgment there is currently no evidence of an immediate life- threatening or surgical condition. Discharge is therefore indicated at this time. Discharge treatment instructions, follow up instructions, and appropriate emergency department return precautions were discussed with the patient and/or medical decision maker. Patient and/or medical decision maker expressed understanding of and agreed with the treatment plan, follow up instructions, and emergency department return precaution. All patient's and/or medical decision maker's questions were answered. The patient was advised that a small risk still exists that a serious condition could develop and was therefore instructed to return to the ED for any changes in symptoms, persistent symptoms, inability to obtain proper follow-up or for any further concerns. Patient received verbal and written instructions for this condition. Undiagnosed new problem with uncertain prognosis? @ -No Drug Therapy requiring intensive monitoring for toxicity (Heparin, Nitro, Insulin, Cardizem)? @ -No Were any procedures done? @ -No Diagnosis/symptom? @ facial contusion, fall Acute, or Chronic, or Acute on Chronic? acute Uncomplicated (without systemic symptoms) or Complicated (systemic symptoms)? @uncomplicated Side effects of treatment? @ -No Exacerbation, Progression, or Severe Exacerbation? @ -No Poses a threat to life or bodily function? How? (Chest pain, [place], DC, pneumonia, PE, COPD, DKA, ARF, appy, cholecystitis, CVA, Diverticulitis, Homicidal, Suicidal, threat to staff... and all critical care pts) @ -No Disposition Clinical Impression: Fall, Facial contusion Disposition: HOME SELF-CARE Condition: Good Instructions (If sedation given, give patient instructions): Contusion in Adults (ED), Fall Prevention (ED) Additional Instructions: Every disease is a spectrum and a small chance still exists that a serious condition could develop, for this reason, please monitor yourself closely for new, changing or worsening symptoms, symptoms that persist beyond 48 hours, confusion, changes in vision, uncontrollable pain, numbness, weakness, slurred speech fever, inability to tolerate/keep down fluids or your medications, inability to follow up with outpatient providers as instructed and should you experience these symptoms or should you have any further concerns for your wellbeing please return to the ED or call 911 immediately. PLEASE call your primary care physician as soon as possible to arrange / discuss plan for followup appointment. Appointment in the next 1-3 days is strongly encouraged if possible. PLEASE let us know here before you leave if there is anything further we can do to be of any assistance. Take care and feel Better! Is patient prescribed a controlled substance at d/c from ED?: No Referrals: Nonstaff,Physician [Primary Care Provider] - 1-2 days
[2024-08-15] MEDS: ACETAMINOPHEN TAB 500 MG TAB PO STA (01:20)
[2024-08-15] MEDS: ONDANSETRON ODT 4 MG TAB PO STA (01:20)
[2024-08-15 01:31] VITALS: BP 122/64; PULSE 88; TEMP 97.8
== END 2024-08-15 01:30 | disposition home or self-care (01) ==
LOC: EC 22:59
DX: S00.83XA Contusion of other part of head, initial encounter (principal); F17.200 Nicotine dependence, unspecified, uncomplicated; Z86.73 Personal history of transient ischemic attack (TIA), and cerebral infarction without residual deficits; W18.30XA Fall on same level, unspecified, initial encounter
CPT/HCPCS: 70450; 72125; 99284

== ENCOUNTER 2024-08-15 13:53 | Observation (INO) | payer MEDICARE, OTHER ==
--- NOTE | 2024-08-15 14:25 | ED ---
General Adult HPI - General Chief complaint: Headache Stated complaint: Confusion/weakness Time Seen by Provider: 08/15/24 14:00 Source: patient, EMS, RN notes reviewed, old records reviewed Mode of arrival: EMS - History of Present Illness Initial comments: This is a 68-year-old female who presents to the emergency department after having gone to court today patient was there and his legs were weak bilaterally and she also stated that she has a significant headache. Patient was here yesterday for a fall and she had a CAT scan of the head but her headache is worsened yesterday. Patient also is complaining of dysuria and urinary frequency. Patient states both of her legs are so weak she could barely stand at the court house. Patient denies any fever chills. Patient [place] any chest pain difficulty breathing or shortness of breath. Patient has any palpitation. Patient has abdominal pain patient has nausea vomiting diarrhea. - Related Data Home Medications Medication Instructions Recorded Confirmed Atorvastatin [Lipitor] 40 mg PO HS 08/24/21 07/05/24 Clopidogrel [Plavix] 75 mg PO DAILY 08/24/21 07/05/24 Escitalopram [Lexapro] 20 mg PO DAILY 08/24/21 07/05/24 QUEtiapine [SEROquel] 25 mg PO HS 08/24/21 07/05/24 rOPINIRole HCL [Requip] 1 mg PO BID 08/24/21 07/05/24 Ergocalciferol [Vitamin D2 (1250 1,250 mcg PO WEEKLY 06/14/24 07/05/24 Mcg = 94811 Iu)] lisinopriL [Zestril] 10 mg PO DAILY 06/14/24 07/05/24 Folic Acid 1 mg PO DIRECTED 07/05/24 07/05/24 Thiamine [Vitamin B-1] 100 mg PO DIRECTED 07/05/24 07/05/24 Previous Rx's Medication Instructions Recorded Metoprolol Succinate (ER) [Toprol 12.5 mg PO DAILY #30 tab 06/22/24 XL] levETIRAcetam [Keppra] 1,500 mg PO BID #120 tab 06/22/24 Lactulose [Cephulac] 30 gm PO DAILY #7 ml 06/26/24 Phenytoin Sodium Extended 200 mg PO BID #60 capsule 06/26/24 [Dilantin] Docusate [Colace] 100 mg PO BID #60 cap 07/06/24 Famotidine [Pepcid] 20 mg PO BID #60 tab 07/06/24 Lacosamide [Vimpat] 200 mg PO BID #0 07/06/24 Allergies Allergy/AdvReac Type Severity Reaction Status Date / Time No Known Allergies Allergy Verified 08/15/24 14:03 Review of Systems ROS Statement: Those systems with pertinent positive or pertinent negative responses have been documented in the HPI. ROS Other: All systems not noted in ROS Statement are negative. Past Medical History Past Medical History: Asthma, CVA/TIA, GERD/Reflux, Liver Disease, Osteoarthritis (OA) Additional Past Medical History / Comment(s): ELEVATED LIVER ENZYMES., HX OF PERFORATED STOMACH ULCER., sister states patient has HEPATITIS C, epigastric pain, recent admission for taking too much tylenol pm per pt. Etoh withdrawal seizures History of Any Multi-Drug Resistant Organisms: None Reported Past Surgical History: Hernia Repair, Tubal Ligation Additional Past Surgical History / Comment(s): PLASTIC SURGERY TO FOREHEAD, PERFORATED STOMACH ULCER. laser surgery to right leg for varicose veins Past Anesthesia/Blood Transfusion Reactions: No Reported Reaction Past Psychological History: ADD/ADHD, Anxiety, Depression Smoking Status: Current every day smoker Past Alcohol Use History: Daily, Heavy Past Drug Use History: Marijuana, Methamphetamine, Prescription Drug Abuse - Past Family History Mother Family Medical History: Cancer Additional Family Medical History / Comment(s): OVARIAN CA Father History Unknown: Yes Additional Family Medical History / Comment(s): father when patient was very young (2 year old), he of a gunshot wound outside of a bar at the age of 24 General Exam - General Exam Comments Initial Comments: GENERAL: Patient is well-developed and well-nourished. Patient is nontoxic and well- hydrated and is in mild distress. ENT: Neck is soft and supple. No significant lymphadenopathy is noted. Oropharynx is clear. Moist mucous membranes. Neck has full range of motion without eliciting any pain. EYES: The sclera were anicteric and conjunctiva were pink and moist. Extraocular movements were intact and pupils were equal round and reactive to light. Eyelids were unremarkable. Patient has contusions around the left orbit. PULMONARY: Unlabored respirations. Good breath sounds bilaterally. No audible rales rhonchi or wheezing was noted. CARDIOVASCULAR: There is a regular rate and rhythm without any murmurs gallops or rubs. ABDOMEN: Soft and nontender with normal bowel sounds. SKIN: Skin is clear with no lesions or rashes and otherwise unremarkable. NEUROLOGIC: Patient is alert and oriented x 2 Patient does seem to have some confusion as to what was going on today but according to the paramedics the patient's baseline is mild dementia. Cranial nerves II through XII are grossly intact. Motor and sensory are also intact. Normal speech, volume and content. Symmetrical smile. MUSCULOSKELETAL: Normal extremities with adequate strength and full range of motion. No lower extremity swelling or edema. No calf tenderness. LYMPHATICS: No significant lymphadenopathy is noted PSYCHIATRIC: Normal psychiatric evaluation. Course Vital Signs 08/15/24 08/15/24 08/15/24 13:57 15:37 17:13 Temperature 98.5 F Pulse Rate 88 86 93 Respiratory 20 16 18 Rate Blood Pressure 112/70 110/66 115/68 O2 Sat by Pulse 96 99 99 Oximetry 08/15/24 18:29 Temperature Pulse Rate 90 Respiratory 18 Rate Blood Pressure 113/66 O2 Sat by Pulse 98 Oximetry Medical Decision Making - Medical Decision Making EKG is interpreted by myself. EKG shows sinus rhythm at 89 bpm ID interval is 156 QRS is 96 QT interval 377 QTc is 423. Patient's EKG shows no ST segment elevation. Was pt. sent in by a medical professional or institution ([facility], [facility], urgent care, hospital, or assisted...) When possible be specific @ -No Did you speak to anyone other than the patient for history (EMS, parent, family, police, friend...)? What history was obtained from this source @ -No Did you review nursing and triage notes (agree or disagree)? Why? @ -I reviewed and agree with nursing and triage notes Were old charts reviewed (outside hosp., previous admission, EMS record, old EKG, old radiological studies, urgent care reports/EKG's, assisted records)? Report findings @ -No old charts were reviewed Differential Diagnosis? @ -Differential Altered Mental Status: Hypoglycemia, DKA, hypercapnia, ETOH, overdose, CO poisoning, trauma, myxedema coma, HTN encephalopathy, infection, encephalitis, psychosis, intercranial hemorrhage, hepatic encephalopathy, meningitis, CVA, this is not meant to be an all-inclusive list EKG interpreted by me (3pts min.). @ -As above X-rays interpreted by me (1pt min.). @ -Chest x-ray shows no acute abnormality CT interpreted by me (1pt min.). @ -CT of the brain shows no acute abnormality U/S interpreted by me (1pt. min.). @ -None done What testing was considered but not performed or refused? (CT, X-rays, U/S, labs)? Why? @ -None What meds were considered but not given or refused? Why? @ -None Did you discuss the management of the patient with other professionals (professionals i.e. , PA, H[facility] STR[facility], lab, RT, psych nurse, licensed clinical social worker, salvage grinder, t eacher, correctional program officer, counter caser)? Give summary @ [facility]. Was smoking cessation discussed for >3mins.? @ -No Was critical care preformed (if so, how long)? @ -No Were there social determinants of health that impacted care today? How? (Homelessness, low income, unemployed, alcoholism, drug addiction, transportation, low edu. Level, literacy, decrease access to med. care, [facility], rehab)? @ -No Was there de-escalation of care discussed even if they declined (Discuss DNR or withdrawal of care, Hospice)? DNR status @ -No What co-morbidities impacted this encounter? (DM, HTN, Smoking, COPD, CAD, Cancer, CVA, ARF, Chemo, Hep., AIDS, mental health diagnosis, sleep apnea, morbid obesity)? @ -None Was patient admitted / discharged? Hospital course, mention meds given and route, prescriptions, significant lab abnormalities, going to OR and other pertinent info. @ -Patient has urinary tract infection. Patient is still altered and I do not have anyone to verify baseline though I did speak with Adult Protective Services and they are trying to go to court and get a guardian for the patient because she seems to be unable to take care of her self and she has multiple situations where she is fallen and possibly drinking heavily Undiagnosed new problem with uncertain prognosis? @ -No Drug Therapy requiring intensive monitoring for toxicity (Heparin, Nitro, Insulin, Cardizem)? @ -No Were any procedures done? @ -No Diagnosis/symptom? @ -Altered mental Acute, or Chronic, or Acute on Chronic? @ -acute Uncomplicated (without systemic symptoms) or Complicated (systemic symptoms)? @ -Complicated Side effects of treatment? @ -No Exacerbation, Progression, or Severe Exacerbation? @ -No Poses a threat to life or bodily function? How? (Chest pain, USA, CO, pneumonia, PE, COPD, DKA, ARF, appy, cholecystitis, CVA, Diverticulitis, Homicidal, Suicidal, threat to staff... and all critical care pts) @ -No Diagnosis/symptom? @ -Urinary tract infection Acute, or Chronic, or Acute on Chronic? @ -Acute Uncomplicated (without systemic symptoms) or Complicated (systemic symptoms)? @ -Complicated Side effects of treatment? @ -None Exacerbation, Progression, or Severe Exacerbation] @ -No Poses a threat to life or bodily function? @ -Yes this could lead to sepsis and endorgan dysfunction Diagnosis/symptom? @ -Alcohol abuse Acute, or Chronic, or Acute on Chronic? @ -Acute Uncomplicated (without systemic symptoms) or Complicated (systemic symptoms)? @ -Complicated Side effects of treatment? @ -None Exacerbation, Progression, or Severe Exacerbation] @ -No Poses a threat to life or bodily function? @ -No - Lab Data Result diagrams: 08/15/24 14:23 08/15/24 14:23 Lab Results 08/15/24 08/15/24 08/15/24 Range/Units 14:23 14:23 14:23 WBC 4.11 L (4.50-10.00) 10*3/uL RBC 3.61 L (4.10-5.20) 10*6/uL Hgb 11.0 L (12.0-15.0) g/dL Hct 32.9 L (37.2-46.3) % MCV 91.1 (80.0-97.0) fL MCH 30.5 (27.0-32.0) pg MCHC 33.4 (32.0-37.0) g/dL Plt Count 82 L D (140-440) 10*3/uL MPV 10.5 (9.5-12.2) fL Immature Gran % (Auto) 0.2 % Neutrophils % 69.5 % Lymphocytes % 22.6 % Monocytes % 6.8 % Eosinophils % 0.7 % Basophils % 0.2 % Immature Gran # 0.01 (0.00-0.04) 10*3/uL Neutrophils # 2.85 (1.80-7.70) 10*3/uL Lymphocytes # 0.93 (0.90-5.00) 10*3/uL Monocytes # 0.28 (0.20-1.00) 10*3/uL Eosinophils # 0.03 L (0.04-0.35) 10*3/uL Basophils # 0.01 (0.00-0.10) 10*3/uL Manual Slide Review Performed Large Platelets Present PT 11.0 (10.0-12.5) sec INR 1.0 (<1.2) APTT 23.5 (22.0-30.0) sec Sodium 133 L (137-145) mmol/L Potassium 4.2 (3.5-5.1) mmol/L Chloride 100 (98-107) mmol/L Carbon Dioxide 27 (22-30) mmol/L Anion Gap 6 mmol/L BUN 11 (7-17) mg/dL Creatinine 0.67 (0.52-1.04) mg/dL Est GFR (CKD-EPI)AfAm >90 (>60 ml/min/1.73 sqM) Est GFR (CKD-EPI)NonAf >90 (>60 ml/min/1.73 sqM) Glucose 106 H (74-99) mg/dL Plasma Lactic Acid Al (0.7-2.0) mmol/L Calcium 9.4 (8.4-10.2) mg/dL Magnesium 1.3 L (1.6-2.3) mg/dL Total Bilirubin 1.1 (0.2-1.3) mg/dL AST 40 H (14-36) U/L ALT 18 (4-34) U/L Alkaline Phosphatase 118 (38-126) U/L Troponin I (0.000-0.034) ng/mL Total Protein 7.2 (6.3-8.2) g/dL Albumin 4.0 (3.5-5.0) g/dL Urine Color Urine Appearance (Clear) Urine pH (5.0-8.0) Ur Specific [place] (1.001-1.035) Urine Protein (Negative) Urine Glucose (UA) (Negative) Urine Ketones (Negative) Urine Blood (Negative) Urine Nitrite (Negative) Urine Bilirubin (Negative) Urine Urobilinogen (<2.0) mg/dL Ur Leukocyte Esterase (Negative) Urine RBC (0-5) /hpf Urine WBC (0-5) /hpf Urine WBC Clumps (None) /hpf Ur Squamous Epith Cells (0-4) /hpf Urine Bacteria (None) /hpf Urine Mucus (None) /hpf 08/15/24 08/15/24 08/15/24 Range/Units 14:23 14:23 18:00 WBC (4.50-10.00) 10*3/uL RBC (4.10-5.20) 10*6/uL Hgb (12.0-15.0) g/dL Hct (37.2-46.3) % MCV (80.0-97.0) fL MCH (27.0-32.0) pg MCHC (32.0-37.0) g/dL Plt Count (140-440) 10*3/uL MPV (9.5-12.2) fL Immature Gran % (Auto) % Neutrophils % % Lymphocytes % % Monocytes % % Eosinophils % % Basophils % % Immature Gran # (0.00-0.04) 10*3/uL Neutrophils # (1.80-7.70) 10*3/uL Lymphocytes # (0.90-5.00) 10*3/uL Monocytes # (0.20-1.00) 10*3/uL Eosinophils # (0.04-0.35) 10*3/uL Basophils # (0.00-0.10) 10*3/uL Manual Slide Review Large Platelets PT (10.0-12.5) sec INR (<1.2) APTT (22.0-30.0) sec Sodium (137-145) mmol/L Potassium (3.5-5.1) mmol/L Chloride (98-107) mmol/L Carbon Dioxide (22-30) mmol/L Anion Gap mmol/L BUN (7-17) mg/dL Creatinine (0.52-1.04) mg/dL Est GFR (CKD-EPI)AfAm (>60 ml/min/1.73 sqM) Est GFR (CKD-EPI)NonAf (>60 ml/min/1.73 sqM) Glucose (74-99) mg/dL Plasma Lactic Acid Al 1.8 (0.7-2.0) mmol/L Calcium (8.4-10.2) mg/dL Magnesium (1.6-2.3) mg/dL Total Bilirubin (0.2-1.3) mg/dL AST (14-36) U/L ALT (4-34) U/L Alkaline Phosphatase (38-126) U/L Troponin I <0.012 (0.000-0.034) ng/mL Total Protein (6.3-8.2) g/dL Albumin (3.5-5.0) g/dL Urine Color Yellow Urine Appearance Turbid H (Clear) Urine pH 6.0 (5.0-8.0) Ur Specific [place] 1.021 (1.001-1.035) Urine Protein 1+ H (Negative) Urine Glucose (UA) Negative (Negative) Urine Ketones Negative (Negative) Urine Blood Moderate H (Negative) Urine Nitrite Negative (Negative) Urine Bilirubin Negative (Negative) Urine Urobilinogen 12.0 (<2.0) mg/dL Ur Leukocyte Esterase Large H (Negative) Urine RBC 26 H (0-5) /hpf Urine WBC >182 H (0-5) /hpf Urine WBC Clumps Many H (None) /hpf Ur Squamous Epith Cells 5 H (0-4) /hpf Urine Bacteria Occasional H (None) /hpf Urine Mucus Rare H (None) /hpf Disposition Clinical Impression: Alcohol abuse, Altered mental status, Urinary tract infection Disposition: ADMITTED IP TO THIS [facility] Referrals: Nonstaff,Physician [Primary Care Provider] - 1-2 days Time of Disposition: 19:50
[2024-08-15 14:47] LABS: Basophils # (A) 0.01 10*3/uL (0.00-0.10); Basophils % (A) 0.2 %; Eosinophils # (A) 0.03 10*3/uL (0.04-0.35); Eosinophils % (A) 0.7 %; HCT 32.9 % (37.2-46.3); Lymphocytes # (A) 0.93 10*3/uL (0.90-5.00); Lymphocytes % (A) 22.6 %; MCH 30.5 pg (27.0-32.0); MCHC 33.4 g/dL (32.0-37.0); MCV 91.1 fL (80.0-97.0); Mean Platelet Volume 10.5 fL (9.5-12.2); Monocytes # (A) 0.28 10*3/uL (0.20-1.00); Monocytes % (A) 6.8 %; Neutrophils # (A) 2.85 10*3/uL (1.80-7.70); Neutrophils % (A) 69.5 %; RBC 3.61 10*6/uL (4.10-5.20); RDW 13.6 % (11.5-14.5); WBC 4.11 10*3/uL (4.50-10.00)
[2024-08-15 15:09] LABS: ALT 18 U/L (4-34); AST 40 U/L (14-36); African American GFR (CKD) >90 (>60 ml/min/1.73 sqM); Alkaline Phosphatase 118 U/L (38-126); Anion Gap 6 mmol/L; Blood Urea Nitrogen 11 mg/dL (7-17); Calcium 9.4 mg/dL (8.4-10.2); Carbon Dioxide 27 mmol/L (22-30); Chloride 100 mmol/L (98-107); Glucose 106 mg/dL (74-99); Magnesium 1.3 mg/dL (1.6-2.3); Non-African American GFR(CKD) >90 (>60 ml/min/1.73 sqM); Potassium 4.2 mmol/L (3.5-5.1); Sodium 133 mmol/L (137-145); Total Bilirubin 1.1 mg/dL (0.2-1.3); Total Protein 7.2 g/dL (6.3-8.2)
[2024-08-15 15:19] LABS: Partial Thromboplastin Time 23.5 sec (22.0-30.0)
[2024-08-15 15:36] LABS: Large Platelets Present; Platelet Count 82 10*3/uL (140-440)
--- NOTE | 2024-08-15 16:26 | XR ---
EXAMINATION TYPE: XR chest 2V DATE OF EXAM: 08/15/2024 4:09 PM COMPARISON: Chest radiographs from 07/05/2024 CLINICAL INDICATION: Female, 68 years old with history of Weakness; [facility] TECHNIQUE: XR chest 2V Frontal and lateral views of the chest. FINDINGS: Lungs/Pleura: There is no evidence of pleural effusion, focal consolidation, or pneumothorax. Pulmonary vascularity: Unremarkable. Heart/mediastinum: Cardiomediastinal silhouette is unremarkable. Musculoskeletal: No acute osseous pathology. Other findings: None IMPRESSION: No acute cardiopulmonary disease/process. [facility], , 08/15/2024 4:24 PM
--- NOTE | 2024-08-15 16:36 | CT ---
EXAMINATION TYPE: CT brain wo con DATE OF EXAM: 08/15/2024 COMPARISON: 08/14/2024 CLINICAL INDICATION: Female, 68 years old with history of Trauma, headache, weakness; PHH, Trauma, he adache weakness CT DLP: 1135.4 mGycm Automated exposure control for dose reduction was used. Findings: The ventricles, basal cisterns and sulci over the convexities are within normal limits for the patien t's age and there is no mass effect or shift of midline structures. No abnormal density is seen throughout the brain parenchyma and there is no acute intra or extra-axia l hemorrhage. The posterior fossa including the brainstem, fourth ventricle and cerebellar pontine angles appear no rmal. Intraorbital contents appear normal and symmetric. Visualized paranasal sinuses and mastoid air cells are well aerated. The calvarium is intact. IMPRESSION: No acute bleed or mass effect. [facility], , 08/15/2024 4:34 PM
[2024-08-15 18:29] LABS: Appearance,Urine Turbid (Clear); Bilirubin,Urine Negative (Negative); Blood,Urine Moderate (Negative); Color,Urine Yellow; Glucose,Urine (UA) Negative (Negative); Ketones,Urine Negative (Negative); Leukocyte Esterase,Urine Large (Negative); Nitrite,Urine Negative (Negative); Protein,Urine 1+ (Negative); Specific Gravity,Urine 1.021 (1.001-1.035)
[2024-08-15 18:30] LABS: Bacteria,Urine Occasional /hpf; Mucus,Urine Rare /hpf; RBC,Urine 26 /hpf (0-5); Squamous Epithelial Cell,Urine 5 /hpf (0-4); WBC,Urine >182 /hpf (0-5)
[2024-08-15] MEDS ORDERED: LORazepam 1 MG TAB PO PRN (19:52)
[2024-08-15] MEDS ORDERED: LORazepam 0.5 MG TAB PO PRN (19:52)
[2024-08-15] MEDS ORDERED: LORazepam 1 MG/0.5 ML VIAL IV PRN ×2 (19:52)
[2024-08-15] MEDS: cefTRIAXone IN SWFI 1,000 MG/10 ML SYRINGE IVP STA ×2 (19:54→19:57)
[2024-08-15] MEDS: LORazepam 1 MG/0.5 ML VIAL IV STA (20:00)
[2024-08-15] MEDS: MAGNESIUM SULFATE-D5W PMX 1 GM in DEXTROSE/WATER 1 100ML.BAG IVPB SCH (20:02)
[2024-08-15] MEDS: SODIUM CHLORIDE 0.9% 1,000 ML IV ONE (20:24)
[2024-08-16] MEDS ORDERED: MAGNESIUM SULFATE-D5W PMX 1 GM in DEXTROSE/WATER 1 100ML.BAG IVPB SCH (08:30)
[2024-08-16] MEDS: MAGNESIUM SULFATE-D5W PMX 1 GM in DEXTROSE/WATER 1 100ML.BAG IVPB SCH (11:23)
[2024-08-16] MEDS ORDERED: NON FORMULARY DRUG (Levetiracetam [Keppra] 1,000 MG Tablet) PO SCH (12:00)
[2024-08-16] MEDS: THIAMINE 100 MG TAB PO SCH (13:04)
[2024-08-16] MEDS: PHENYTOIN SODIUM EXTENDED 100 MG CAP PO SCH (13:04)
[2024-08-16] MEDS: chlordiazePOXIDE 25 MG CAP PO SCH (14:04)
--- NOTE | 2024-08-16 16:53 | P.HPIM ---
History of Present Illness H&P Date: 08/16/24 patient is a 78-year-old female with asthma, history of CVA/TIA (speech deficit residual), osteoarthritis, anxiety, depression, ADD, heavy alcohol dependence (history of withdrawal seizures) here for evaluation. Patient reported that he experienced headache in the around her head like a band, pulsating, 10/10 intensity with eye tearing and tinnitus, with associated lower extremity numbness and aching, dysuria and urinary frequency. Had nausea and nonprojectile nonbloody nonbilious vomiting x3. She denied fever, chills, or shortness of breath, chest pain, palpitations, abdominal pain. Yesterday, patient was admitted to the ED for a fall and had a headache then but reported that today the headache is worse. CT scan of the brain and C-spine at the time was negative for any acute process. On evaluation, patient says she can't remember a lot of what happened to her. On admission: Vitals: Temperature 98.5 F, pulse rate 80, RR 20, BP 112/70, O2 saturation 96% on room air Labs: WBC 4.1, hemoglobin 11, MCV 91.1, platelet count 92,000, sodium 133, potassium 4.2, bicarb 27, BUN 11, creatinine 0.67, glucose 106, lactic acid 1.8, calcium 9.4, magnesium 1.3, AST 40, ALT 18, alk phos 18, albumin 4. Troponin negative at less than 0.0 12. Urinalysis showed turbid appearance, +1 protein, negative glucose, negative ketones, moderate blood, negative nitrate, large leukocyte esterase, RBC 26, WBC greater than 192, occasional bacteria. Imaging: Brain CT on this admission showed no acute bleed or mass effect. Chest x-ray showed no acute cardiopulmonary process. EKG showed sinus rhythm with a rate of 89 bpm, left axis deviation, no ST-T changes, QTc 423 MS. ED documentation reviewed. Review of systems: Pertinent positives and negatives as discussed in HPI, a complete review of systems was performed and all other systems are negative. Social history: Tobacco: Active smoker. Active for 50 years. Smokes 12-15 sticks a day Alcohol: Current daily alcohol intake. up to 6 regular beer cans. For about 50 years Recreational drugs: occasional marijuana smoker, former polysubstance use Travel: No recent prolonged travel Physical examination: Vital signs reviewed General: non toxic, no distress, appears older than stated age, on room air Derm: no unusual rashes/lesions, warm, bruise on left side of face patches of green and purple throughout the bruise Head: atraumatic, normocephalic, symmetric Eyes: EOMI, anicteric sclera, pupils equal round reactive to light ENT: Nose and ears atraumatic Neck: No cervical lymphadenopathy, trachea midline, supple Mouth: no lip lesion, mucus membranes moist Cardiovascular: S1S2 reg, no murmur Lungs: CTA bilateral, no rhonchi, no rales, no accessory muscle use Abdominal: soft, nondistended, nontender to palpation, no guarding Ext: muscle strength 5 out of 5 in all 4 extremities grossly, no gross muscle a trophy, no contractures, positive dorsalis pedis pulse bilateral, no edema Neuro: CN II-XI grossly intact, no gross focal neuro deficits Psych: Alert and oriented x 3, appropriate affect and mood Assessment/Plan: The patient is admitted with an anticipated greater than 2 midnight stay for evaluation of UTI and alcohol intoxication with impending withdrawal Active: #. Alcohol intoxication with impending withdrawal #. Pancytopenia, likley from malnutrition #. Alcohol dependence Check B12 and folate Ativan per [facility] protocol Thiamine and Folic acid p.o supplementation Fall precautions Seizure precautions Consult PT OT #. Cystitis -BUN 11, Creatinine 0.67 -Patient afebrile and WBC -UA showed large leukocyte esterace but high in squamous epithelial cells. Consider obtaining another urine sample -Monitor UO -Avoid nephrotoxic agents -IVF given in the ED. continue with 0.9 normal saline 75 cc/h -Ceftriaxone IV given in the ED. Continue with IV Cetriaxone -Blood and urine cultures ordered #. Hypomagnesemia Mag 1.4 today Replete Mag 4gm IV Check Mag in the AM Chronic Conditions: #. Asthma #. GERD #. Anxiety #. Depression #. ADD/ADHD #. Osteoarthritis #. History of CVA/TIA Resume home atorvastatin 40 mg, clopidogrel 75 mg p.o., duloxetine 30 mg p.o., lacosamide 200 mg p.o. twice daily, levetiracetam 1500 mg p.o. twice daily, phenytoin 200 mg p.o. twice daily, Seroquel 25 mg p.o., ropinirole 1 mg p.o. twice daily DVT ppx: Lovenox 40 mg subcu daily CODE STATUS: Full Discussed with: patient Anticipated discharge place: home Aria Edwards MD PGY-1 Internal Medicine Dictation was produced using [employer] dictation software. please excuse any grammatical, word or spelling errors. Attestation: I have seen and examined this patient with my resident, assessment and plan discussed with the resident, agree with assessment and plan as written above. Dr. Parekh Past Medical History Past Medical History: Asthma, CVA/TIA, GERD/Reflux, Liver Disease, Osteoarthritis (OA) Additional Past Medical History / Comment(s): ELEVATED LIVER ENZYMES., HX OF PERFORATED STOMACH ULCER., sister states patient has HEPATITIS C, epigastric pain, recent admission for taking too much tylenol pm per pt. Etoh withdrawal seizures History of Any Multi-Drug Resistant Organisms: None Reported Past Surgical History: Hernia Repair, Tubal Ligation Additional Past Surgical History / Comment(s): PLASTIC SURGERY TO FOREHEAD, PERFORATED STOMACH ULCER. laser surgery to right leg for varicose veins Past Anesthesia/Blood Transfusion Reactions: No Reported Reaction Past Psychological History: ADD/ADHD, Anxiety, Depression Smoking Status: Current every day smoker Past Alcohol Use History: Daily, Heavy Past Drug Use History: Marijuana, Methamphetamine, Prescription Drug Abuse - Past Family History Mother Family Medical History: Cancer Additional Family Medical History / Comment(s): OVARIAN CA Father History Unknown: Yes Additional Family Medical History / Comment(s): father when patient was very young (2 year old), he of a gunshot wound outside of a bar at the age of 23 Medications and Allergies Home Medications Medication Instructions Recorded Confirmed Type Atorvastatin [Lipitor] 40 mg PO HS 08/24/21 08/16/24 History Clopidogrel [Plavix] 75 mg PO DAILY 08/24/21 08/16/24 History QUEtiapine [SEROquel] 25 mg PO HS 08/24/21 08/16/24 History rOPINIRole HCL [Requip] 1 mg PO BID 08/24/21 08/16/24 History Ergocalciferol [Vitamin D2 (1250 1,250 mcg PO WEEKLY 06/14/24 08/16/24 History Mcg = 30857 Iu)] Metoprolol Succinate (ER) [Toprol 12.5 mg PO DAILY #30 tab 06/22/24 08/16/24 Rx XL] Lactulose [Cephulac] 30 gm PO DAILY #7 ml 06/26/24 08/16/24 Rx Phenytoin Sodium Extended 200 mg PO BID #60 capsule 06/26/24 08/16/24 Rx [Dilantin] Folic Acid 1 mg PO DAILY 07/05/24 08/16/24 History Thiamine [Vitamin B-1] 100 mg PO DAILY 07/05/24 08/16/24 History Lacosamide [Vimpat] 200 mg PO BID #0 07/06/24 08/16/24 Rx DULoxetine HCL [Cymbalta] 30 mg PO DAILY 08/16/24 08/16/24 History Diclofenac Sodium [Voltaren 4 gm TOPICAL QID PRN 08/16/24 08/16/24 History Arthritis Pain 1% Gel] levETIRAcetam [Keppra] 1,500 mg PO BID 08/16/24 08/16/24 History lisinopriL [Zestril] 20 mg PO DAILY 08/16/24 08/16/24 History Allergies Allergy/AdvReac Type Severity Reaction Status Date / Time No Known Allergies Allergy Verified 08/16/24 11:36 Physical Exam Vitals: Vital Signs Temp Pulse Resp BP Pulse Ox 08/16/24 06:00 97.9 F 81 18 115/73 98 08/16/24 03:59 74 18 110/60 98 08/16/24 02:10 80 18 99/63 97 08/16/24 00:10 82 18 107/69 97 08/15/24 18:29 90 18 113/66 98 08/15/24 17:13 93 18 115/68 99 08/15/24 15:37 86 16 110/66 99 08/15/24 13:57 98.5 F 88 20 112/70 96 Results CBC & Chem 7: 08/15/24 14:23 08/15/24 14:23 Labs: Abnormal Lab Results - Last 24 Hours (Table) 08/15/24 08/15/24 08/15/24 Range/Units 14:23 14:23 18:00 WBC 4.11 L (4.50-10.00) 10*3/uL RBC 3.61 L (4.10-5.20) 10*6/uL Hgb 11.0 L (12.0-15.0) g/dL Hct 32.9 L (37.2-46.3) % Plt Count 82 L D (140-440) 10*3/uL Eosinophils # 0.03 L (0.04-0.35) 10*3/uL Sodium 133 L (137-145) mmol/L Glucose 106 H (74-99) mg/dL Magnesium 1.3 L (1.6-2.3) mg/dL AST 40 H (14-36) U/L Urine Appearance Turbid H (Clear) Urine Protein 1+ H (Negative) Urine Blood Moderate H (Negative) Ur Leukocyte Esterase Large H (Negative) Urine RBC 26 H (0-5) /hpf Urine WBC >182 H (0-5) /hpf Urine WBC Clumps Many H (None) /hpf Ur Squamous Epith Cells 5 H (0-4) /hpf Urine Bacteria Occasional H (None) /hpf Urine Mucus Rare H (None) /hpf
[2024-08-16] MEDS: HYDROmorphone 0.5 MG/0.5 ML SYRINGE IVP PRN (17:38)
--- NOTE | 2024-08-16 18:20 | CT ---
EXAMINATION TYPE: CT abdomen pelvis wo con DATE OF EXAM: 08/16/2024 6:02 PM COMPARISON: 06/18/2024 CLINICAL INDICATION: Female, 68 years old with history of pain; pain TECHNIQUE: Axial CT abdomen pelvis wo con;Sagittal and coronal reformats were created on a separate workstation. Contrast used: mL of , (none if empty) Oral contrast used: without Oral Contrast (none if empty) CT DLP: 413.1 mGycm, Automated exposure control for dose reduction was used. FINDINGS: LOWER CHEST: Unremarkable ABDOMEN LIVER: Nodular contour to the liver with caudate lobe hypertrophy and trunk in appearance. Evaluation for masses limited without contrast. GALLBLADDER AND BILE DUCTS: Unremarkable. PANCREAS: Unremarkable. SPLEEN: Unremarkable. ADRENAL GLANDS: Unremarkable. KIDNEYS AND URETERS: No evidence of hydronephrosis or obstructing renal calculus. The ureters are unr emarkable. Nonobstructing 4 mm renal calculi bilaterally. PELVIS BLADDER: No evidence for wall thickening or mass given limitations of exam. REPRODUCTIVE: Unremarkable. ABDOMEN & PELVIS STOMACH AND BOWEL: No evidence of bowel obstruction. PERITONEUM/RETROPERITONEUM: No evidence of pneumoperitoneum or free fluid. VASCULATURE: Moderate atherosclerotic calcifications are present throughout the abdominal aorta and i ts branches. No evidence of aortic aneurysm. Severe atherosclerotic plaque near the common femoral ar teries. MUSCULOSKELETAL: L1 vertebral body compression fracture with 25% loss anteriorly. No significant retr opulsion. T10 vertebral body compression fracture 25% loss. LYMPH NODES: No gross evidence for lymphadenopathy. SOFT TISSUE/ABDOMINAL WALL: Unremarkable IMPRESSION: 1. No evidence for acute abdominal process. 2. Hepatic cirrhosis. 3. L1 and T10 vertebral body compression fractures with 25% loss. Correlate with back pain for acute fracture. 4. Bilateral nonobstructing renal calculi. [facility], , 08/16/2024 6:17 PM
[2024-08-16] MEDS ORDERED: NON FORMULARY DRUG (Lacosamide [Vimpat] 200 MG Tablet) PO SCH (21:00)
[2024-08-16] MEDS: ATORVASTATIN 40 MG TAB PO SCH (22:42)
[2024-08-16] MEDS: LACOSAMIDE 50 MG TABLET PO SCH (22:43)
[2024-08-16] MEDS: QUEtiapine 25 MG TAB PO SCH (22:44)
[2024-08-16] MEDS: LORazepam 1 MG/0.5 ML VIAL IV PRN (23:34)
[2024-08-17 03:17] LABS: Basophils # (A) 0.02 10*3/uL (0.00-0.10); Basophils % (A) 0.6 %; Eosinophils # (A) 0.05 10*3/uL (0.04-0.35); Eosinophils % (A) 1.6 %; HCT 31.8 % (37.2-46.3); HGB 10.5 g/dL (12.0-15.0); Lymphocytes # (A) 1.05 10*3/uL (0.90-5.00); Lymphocytes % (A) 33.4 %; MCH 30.1 pg (27.0-32.0); MCV 91.1 fL (80.0-97.0); Mean Platelet Volume 10.5 fL (9.5-12.2); Monocytes # (A) 0.27 10*3/uL (0.20-1.00); Monocytes % (A) 8.6 %; Neutrophils # (A) 1.74 10*3/uL (1.80-7.70); Neutrophils % (A) 55.5 %; RBC 3.49 10*6/uL (4.10-5.20); RDW 13.8 % (11.5-14.5); WBC 3.14 10*3/uL (4.50-10.00)
[2024-08-17 03:28] LABS: Platelet Count 84 10*3/uL (140-440)
[2024-08-17 03:51] LABS: African American GFR (CKD) >90 (>60 ml/min/1.73 sqM); Anion Gap 4 mmol/L; Blood Urea Nitrogen 8 mg/dL (7-17); Calcium 8.5 mg/dL (8.4-10.2); Carbon Dioxide 26 mmol/L (22-30); Chloride 105 mmol/L (98-107); Glucose 109 mg/dL (74-99); Non-African American GFR(CKD) >90 (>60 ml/min/1.73 sqM); Potassium 3.3 mmol/L (3.5-5.1); Sodium 135 mmol/L (137-145)
[2024-08-17 07:20] VITALS: RESP 16
[2024-08-17] MEDS: DULoxetine HCL 30 MG CAPSULE.DR PO SCH (09:14)
[2024-08-17] MEDS: CLOPIDOGREL 75 MG TAB PO SCH (09:14)
[2024-08-17] MEDS: HYDROcodone/APAP 5-325MG 1 EACH TAB PO PRN (09:17)
[2024-08-17] MEDS: POTASSIUM CHLORIDE ER 20 MEQ TAB.ER PO STA (13:30)
[2024-08-17 14:29] VITALS: BP 109/69; PULSE 78; TEMP 99
--- NOTE | 2024-08-17 17:35 | P.DS ---
Providers Date of admission: 08/15/24 19:53 Attending physician: Rachael Zuniga Consults: 08/16/24 17:28 Consult Physician Stat Consulting Provider: Michi Liz Consult Reason/Comments: abd pain Do you want consulting provider notified?: Yes Primary care physician: Physician Nonstaff Hospital Course: Hospital Course: Patient is a 78-year-old female with asthma, history of CVA/TIA (speech deficit residual), osteoarthritis, anxiety, depression, ADD, heavy alcohol dependence (history of withdrawal seizures) here for evaluation. Patient reported that he experienced headache in the around her head like a band, pulsating, 10/10 intensity with eye tearing and tinnitus, with associated lower extremity numbness and aching, dysuria and urinary frequency. Had nausea and nonprojectile nonbloody nonbilious vomiting x3. She denied fever, chills, or shortness of breath, chest pain, palpitations, abdominal pain. Yesterday, patient was admitted to the ED for a fall and had a headache then but reported that today the headache is worse. CT scan of the brain and C-spine at the time was negative for any acute process. On evaluation, patient says she can't remember a lot of what happened to her. On admission: Vitals: Temperature 98.5 F, pulse rate 80, RR 20, BP 112/70, O2 saturation 96% on room air Labs: WBC 4.1, hemoglobin 11, MCV 91.1, platelet count 92,000, sodium 133, potassium 4.2, bicarb 27, BUN 11, creatinine 0.67, glucose 106, lactic acid 1.8, calcium 9.4, magnesium 1.3, AST 40, ALT 18, alk phos 18, albumin 4. Troponin negative at less than 0.0 12. Urinalysis showed turbid appearance, +1 protein, negative glucose, negative ketones, moderate blood, negative nitrate, large leukocyte esterase, RBC 26, WBC greater than 192, occasional bacteria. Imaging: Brain CT on this admission showed no acute bleed or mass effect. Chest x-ray showed no acute cardiopulmonary process. EKG showed sinus rhythm with a rate of 89 bpm, left axis deviation, no ST-T changes, QTc 423 MS. Patient was evaluated for alcohol intoxication and cystitis. IV fluids, IV antibiotics, thiamine and folic acid supplementation, Librium and Ativan per [facility] protocol ordered. PT OT consulted. B12 and Folate were within normal limits. Patient developed low magnesium and potassium on admission and following electrolytes were repleted. Patient urine cultures and blood culture were negative and patient did become febrile or have an elevated white count throughout her stay. PT OT recommended rehab but patient declined and would prefer to go home. Patient symptoms improved throughout hospital stay. And no new complications occurred. Patient is clear for discharge today on Ceftin 500 mg p.o. twice daily for 3 more days and Librium taper for 4 days. She has vies to follow-up with her PCP on home outpatient basis. Final Diagnosis: #. Alcohol intoxication with impending withdrawal, improved #. Pancytopenia, likley from malnutrition #. Alcohol dependence #. Cystitis #. Hypokalemia, resolved #. Hypomagnesemia, resolved #. Asthma #. GERD #. Anxiety #. Depression #. ADD/ADHD #. Osteoarthritis #. History of CVA/TIA Physical examination: Vital signs reviewed General: non toxic, no distress, appears older than stated age, on room air Derm: no unusual rashes/lesions, warm, bruise on left side of face patches of green and purple throughout the bruise Head: atraumatic, normocephalic, symmetric Eyes: EOMI, anicteric sclera, pupils equal round reactive to light ENT: Nose and ears atraumatic Neck: No cervical lymphadenopathy, trachea midline, supple Mouth: no lip lesion, mucus membranes moist Cardiovascular: S1S2 reg, no murmur Lungs: CTA bilateral, no rhonchi, no rales, no accessory muscle use Abdominal: soft, nondistended, nontender to palpation, no guarding Ext: muscle strength 5 out of 5 in all 4 extremities grossly, no gross muscle atrophy, no contractures, positive dorsalis pedis pulse bilateral, no edema Neuro: CN II-XI grossly intact, no gross focal neuro deficits Psych: Alert and oriented x 3, appropriate affect and mood Attestation: I have seen and examined this patient with my resident, assessment and plan discussed with the resident, agree with assessment and plan as written above. Dr. Parekh Patient Condition at Discharge: Stable Plan - Discharge Summary Discharge Rx Participant: No New Discharge Prescriptions: New cefuroxime axetiL [Ceftin] 500 mg PO BID #6 tab chlordiazePOXIDE HCl [Librium] See Taper PO DAILY 4 Days #6 capsule Continue QUEtiapine [SEROquel] 25 mg PO HS Clopidogrel [Plavix] 75 mg PO DAILY Atorvastatin [Lipitor] 40 mg PO HS Lactulose [Cephulac] 30 gm PO DAILY #7 ml Folic Acid 1 mg PO DAILY Thiamine [Vitamin B-1] 100 mg PO DAILY Lacosamide [Vimpat] 200 mg PO BID #0 lisinopriL [Zestril] 20 mg PO DAILY levETIRAcetam [Keppra] 1,500 mg PO BID Diclofenac Sodium [Voltaren Arthritis Pain 1% Gel] 4 gm TOPICAL QID PRN PRN Reason: Pain rOPINIRole HCL [Requip] 1 mg PO BID Ergocalciferol [Vitamin D2 (1250 Mcg = 99595 Iu)] 1,250 mcg PO WEEKLY Metoprolol Succinate (ER) [Toprol XL] 12.5 mg PO DAILY #30 tab Phenytoin Sodium Extended [Dilantin] 200 mg PO BID #60 capsule DULoxetine HCL [Cymbalta] 30 mg PO DAILY Discharge Medication List Atorvastatin [Lipitor] 40 mg PO HS 08/24/21 [History] Clopidogrel [Plavix] 75 mg PO DAILY 08/24/21 [History] QUEtiapine [SEROquel] 25 mg PO HS 08/24/21 [History] rOPINIRole HCL [Requip] 1 mg PO BID 08/24/21 [History] Ergocalciferol [Vitamin D2 (1250 Mcg = 13104 Iu)] 1,250 mcg PO WEEKLY 06/14/24 [History] Metoprolol Succinate (ER) [Toprol XL] 12.5 mg PO DAILY #30 tab 06/22/24 [Rx] Lactulose [Cephulac] 30 gm PO DAILY #7 ml 06/26/24 [Rx] Phenytoin Sodium Extended [Dilantin] 200 mg PO BID #60 capsule 06/26/24 [Rx] Folic Acid 1 mg PO DAILY 07/05/24 [History] Thiamine [Vitamin B-1] 100 mg PO DAILY 07/05/24 [History] Lacosamide [Vimpat] 200 mg PO BID #0 07/06/24 [Rx] DULoxetine HCL [Cymbalta] 30 mg PO DAILY 08/16/24 [History] Diclofenac Sodium [Voltaren Arthritis Pain 1% Gel] 4 gm TOPICAL QID PRN 08/16/24 [History] levETIRAcetam [Keppra] 1,500 mg PO BID 08/16/24 [History] lisinopriL [Zestril] 20 mg PO DAILY 08/16/24 [History] cefuroxime axetiL [Ceftin] 500 mg PO BID #6 tab 08/17/24 [Rx] chlordiazePOXIDE HCl [Librium] See Taper PO DAILY 4 Days #6 capsule 08/17/24 [Rx] Follow up Appointment(s)/Referral(s): [facility] [NON-STAFF] - 1 Week Nonstaff,Physician [Primary Care Provider] - 1-2 days Discharge Disposition: HOME SELF-CARE
--- NOTE | 2024-08-18 18:44 | P.CONS ---
History of Present Illness - Reason for Consult Consult date: 08/17/24 Abdominal pain Requesting physician: Rachael Zuniga - Chief Complaint Weakness urinary burning x few days - History of Present Illness Patient is a 68-year-old female with a past medical history significant for CVA TIA reflux osteoarthritis asthma history of perforated stomach ulcer patient was brought into the hospital complaining of weakness legs giving out and also having a headache and apparently the patient did have a fall patient denies having any focal weakness patient denies having any urinary symptoms no chest pain shortness of breath or cough no nausea vomiting no abdominal pain or diarrhea she has been complaining of dysuria and urinary frequency on presentation to the hospital patient was afebrile and no fever have been called subsequently patient was nontachycardic hypotensive or hypoxic no need for supplemental oxygen patient did have a white count of 4.11 creatinine 0.67, electrolytes are normal liver enzymes are normal, UA has been positive cultures currently pending patient did have chest x-ray no acute cardiopulmonary disease process abdominal pelvis CT did not show any acute abdominal process bilateral nonobstructing renal calculi, patient was started on Rocephin infectious was consulted regarding UTI/abdominal pain Review of Systems Positive point and negatives has been mentioned in the HPI, complete review of systems was performed and all other systems are negative Past Medical History Past Medical History: Asthma, CVA/TIA, GERD/Reflux, Liver Disease, Osteoarthritis (OA) Additional Past Medical History / Comment(s): ELEVATED LIVER ENZYMES., HX OF PERFORATED STOMACH ULCER., sister states patient has HEPATITIS C, epigastric pain, recent admission for taking too much tylenol pm per pt. Etoh withdrawal seizures History of Any Multi-Drug Resistant Organisms: None Reported Past Surgical History: Hernia Repair, Tubal Ligation Additional Past Surgical History / Comment(s): PLASTIC SURGERY TO FOREHEAD, PERFORATED STOMACH ULCER. laser surgery to right leg for varicose veins Past Anesthesia/Blood Transfusion Reactions: No Reported Reaction Past Psychological History: ADD/ADHD, Anxiety, Depression Additional Psychological History / Comment(s): per sister has been very depr essed for years, but has never taken medication for depression. Smoking Status: Current every day smoker Past Alcohol Use History: Daily, Heavy Additional Past Alcohol Use History / Comment(s): STARTED SMOKING AT AGE 13 per sister, SMOKING NOW 1/2 PPD at least, is a heavy smoker and chain smokes when able. SMOKING FOR 48 YEARS. Past Drug Use History: Marijuana, Methamphetamine, Prescription Drug Abuse Additional Drug Use History / Comment(s): patient used to use cocaine and meth in her 20's. Also known to smoke crack in November 2016. Copied over from prev admission - Past Family History Mother Family Medical History: Cancer Additional Family Medical History / Comment(s): OVARIAN CA Father History Unknown: Yes Additional Family Medical History / Comment(s): father when patient was very young (2 year old), he of a gunshot wound outside of a bar at the age of 23 Medications and Allergies Home Medications Medication Instructions Recorded Confirmed Type Atorvastatin [Lipitor] 40 mg PO HS 08/24/21 08/16/24 History Clopidogrel [Plavix] 75 mg PO DAILY 08/24/21 08/16/24 History QUEtiapine [SEROquel] 25 mg PO HS 08/24/21 08/16/24 History rOPINIRole HCL [Requip] 1 mg PO BID 08/24/21 08/16/24 History Ergocalciferol [Vitamin D2 (1250 1,250 mcg PO WEEKLY 06/14/24 08/16/24 History Mcg = 93123 Iu)] Metoprolol Succinate (ER) [Toprol 12.5 mg PO DAILY #30 tab 06/22/24 08/16/24 Rx XL] Lactulose [Cephulac] 30 gm PO DAILY #7 ml 06/26/24 08/16/24 Rx Phenytoin Sodium Extended 200 mg PO BID #60 capsule 06/26/24 08/16/24 Rx [Dilantin] Folic Acid 1 mg PO DAILY 07/05/24 08/16/24 History Thiamine [Vitamin B-1] 100 mg PO DAILY 07/05/24 08/16/24 History Lacosamide [Vimpat] 200 mg PO BID #0 07/06/24 08/16/24 Rx DULoxetine HCL [Cymbalta] 30 mg PO DAILY 08/16/24 08/16/24 History Diclofenac Sodium [Voltaren 4 gm TOPICAL QID PRN 08/16/24 08/16/24 History Arthritis Pain 1% Gel] levETIRAcetam [Keppra] 1,500 mg PO BID 08/16/24 08/16/24 History lisinopriL [Zestril] 20 mg PO DAILY 08/16/24 08/16/24 History cefuroxime axetiL [Ceftin] 500 mg PO BID #6 tab 08/17/24 Rx chlordiazePOXIDE HCl [Librium] See Taper PO DAILY 4 Days #6 08/17/24 Rx capsule Allergies Allergy/AdvReac Type Severity Reaction Status Date / Time No Known Allergies Allergy Verified 08/16/24 11:36 Physical Exam Vitals: Vital Signs Temp Pulse Pulse Pulse Resp BP BP 08/17/24 14:00 99.0 F 78 16 109/69 08/17/24 07:19 97.2 F L 76 16 122/69 08/17/24 01:40 98.5 F 75 17 109/62 08/16/24 22:41 98.4 F 73 16 121/70 08/16/24 21:05 98 20 123/76 08/16/24 19:35 78 18 106/74 08/16/24 17:40 79 18 113/73 Pulse Ox 08/17/24 14:00 97 08/17/24 07:19 96 08/17/24 01:40 95 08/16/24 22:41 99 08/16/24 21:05 94 L 08/16/24 19:35 95 08/16/24 17:40 99 Intake and Output 08/17/24 08/17/24 08/17/24 06:59 14:59 22:59 Other: Voiding Method Toilet Bedside Commode # Voids 0 GENERAL DESCRIPTION: Elderly female lying in bed, no distress. No tachypnea or accessory muscle of respiration use. HEENT: Shows Pallor , no scleral icterus. Oral mucous membrane is dry. NECK: Trachea central, no thyromegaly. LUNGS: Unlabored breathing. Clear to auscultation anteriorly. No wheeze or crackle. HEART: S1, S2, regular rate and rhythm. No loud murmur ABDOMEN: Soft, no tenderness , EXTREMITIES: No edema of feet. SKIN: No rash, no masses palpable. NEUROLOGICAL: The patient is awake, alert, oriented x3, mood and affect normal. Results CBC & Chem 7: 08/17/24 02:54 08/17/24 14:11 Labs: Abnormal Lab Results - Last 24 Hours (Table) 08/17/24 08/17/24 Range/Units 02:54 02:54 WBC 3.14 L (4.50-10.00) 10*3/uL RBC 3.49 L (4.10-5.20) 10*6/uL Hgb 10.5 L (12.0-15.0) g/dL Hct 31.8 L (37.2-46.3) % Plt Count 84 L (140-440) 10*3/uL Neutrophils # 1.74 L (1.80-7.70) 10*3/uL Sodium 135 L (137-145) mmol/L Potassium 3.3 L (3.5-5.1) mmol/L Glucose 109 H (74-99) mg/dL Microbiology - Last 24 Hours (Table) 08/16/24 02:20 Urine Culture - Final Urine,Clean Catch 08/15/24 19:40 Blood Culture - Preliminary Blood Assessment and Plan (1) Urinary tract infection Status: Acute Code(s): N39.0 - URINARY TRACT INFECTION, SITE NOT SPECIFIED SNOMED Code(s): 79155130 Plan: 1patient presents with generalized weakness in this patient also have urinary burning and frequency concerning for symptomatic UTI likely from enteric gram- negative pathogen she did complain of some abdominal pain possible cystitis no evidence of any tenderness was noted CT abdominal pelvis did not show any acute abnormality some bilateral calculi but no obstruction 2-we will treat the patient with Rocephin while waiting for the culture to finalize Question concern answered We will follow on clinical condition and cultures to further adjust medication if needed Thank you for this consultation we will follow the patient along with you Dictation was produced using [employer] dictation software. please excuse any grammatical, word or spelling errors.
== END 2024-08-17 18:33 | disposition home or self-care (01) ==
LOC: EC 13:53 → INTOOBSV 19:53 → 4SSUR 19:53
PROVIDERS: ADMIT Hospitalist; ATTEND Hospitalist
DX: F10.229 Alcohol dependence with intoxication, unspecified (principal); D61.818 Other pancytopenia; N30.90 Cystitis, unspecified without hematuria; E83.42 Hypomagnesemia; E87.6 Hypokalemia; K21.9 Gastro-esophageal reflux disease without esophagitis; F41.9 Anxiety disorder, unspecified; F32.A Depression, unspecified; F90.9 Attention-deficit hyperactivity disorder, unspecified type; M19.90 Unspecified osteoarthritis, unspecified site; F17.200 Nicotine dependence, unspecified, uncomplicated; Z86.73 Personal history of transient ischemic attack (TIA), and cerebral infarction without residual deficits; Z79.02 Long term (current) use of antithrombotics/antiplatelets; Z79.899 Other long term (current) drug therapy
CPT/HCPCS: 96376; 96366 ×2; 96361 ×2; 96365; 96367; 96375 ×2; 99285; 51702; 36415; 93005; 97162; 97166; 82747; 80053; 80048; 82607; 83605; 83735 ×3; 84132; 84484; 85025 ×2; 85610; 85730; 81001; 87040; 87086; 71046; 70450; 74176; G0378 ×3; J2060 ×2; J0696 ×3; J3475 ×2; J1171

== ENCOUNTER 2024-09-25 22:41 | Emergency (ER) | payer MEDICARE, OTHER ==
--- NOTE | 2024-09-25 23:01 | ED ---
General Adult HPI - General Chief complaint: Fall Stated complaint: Fall Time Seen by Provider: 09/25/24 22:45 Source: patient Mode of arrival: EMS Limitations: altered mental status - History of Present Illness Initial comments: This patient is a 68-year-old woman who arrives by ambulance to have evaluation after ground-level fall. The patient does admit to having had some alcohol earlier. She states that she tripped and fell. Patient denies significant headache. Denies neurologic symptoms. She is uncertain when her last tetanus shot had been administered -: minutes(s) Location: head, face Radiation: non-radiation Quality: dull Consistency: constant Improves with: none Worsens with: none Associated Symptoms: denies other symptoms Treatments Prior to Arrival: none - Related Data Home Medications Medication Instructions Recorded Confirmed Atorvastatin [Lipitor] 40 mg PO HS 08/24/21 08/16/24 Clopidogrel [Plavix] 75 mg PO DAILY 08/24/21 08/16/24 QUEtiapine [SEROquel] 25 mg PO HS 08/24/21 08/16/24 rOPINIRole HCL [Requip] 1 mg PO BID 08/24/21 08/16/24 Ergocalciferol [Vitamin D2 (1250 1,250 mcg PO WEEKLY 06/14/24 08/16/24 Mcg = 47499 Iu)] Folic Acid 1 mg PO DAILY 07/05/24 08/16/24 Thiamine [Vitamin B-1] 100 mg PO DAILY 07/05/24 08/16/24 DULoxetine HCL [Cymbalta] 30 mg PO DAILY 08/16/24 08/16/24 Diclofenac Sodium [Voltaren 4 gm TOPICAL QID PRN 08/16/24 08/16/24 Arthritis Pain 1% Gel] levETIRAcetam [Keppra] 1,500 mg PO BID 08/16/24 08/16/24 lisinopriL [Zestril] 20 mg PO DAILY 08/16/24 08/16/24 Previous Rx's Medication Instructions Recorded Metoprolol Succinate (ER) [Toprol 12.5 mg PO DAILY #30 tab 06/22/24 XL] Lactulose [Cephulac] 30 gm PO DAILY #7 ml 06/26/24 Phenytoin Sodium Extended 200 mg PO BID #60 capsule 06/26/24 [Dilantin] Lacosamide [Vimpat] 200 mg PO BID #0 07/06/24 cefuroxime axetiL [Ceftin] 500 mg PO BID #6 tab 08/17/24 chlordiazePOXIDE HCl [Librium] See Taper PO DAILY 4 Days #6 08/17/24 capsule Allergies Allergy/AdvReac Type Severity Reaction Status Date / Time No Known Allergies Allergy Verified 08/16/24 11:36 Review of Systems ROS Statement: Those systems with pertinent positive or pertinent negative responses have been documented in the HPI. ROS Other: All systems not noted in ROS Statement are negative. Constitutional: Denies: fever, chills, weakness Eyes: Denies: vision change ENT: Denies: ear pain, hearing loss Respiratory: Denies: cough, dyspnea Cardiovascular: Denies: chest pain, palpitations, edema, syncope Gastrointestinal: Denies: abdominal pain, nausea, vomiting Genitourinary: Denies: dysuria, hematuria Musculoskeletal: Denies: back pain Skin: Denies: rash Neurological: Reports: as per HPI, confusion. Denies: headache, weakness, numbness Hematological/Lymphatic: Reports: easy bleeding Past Medical History Past Medical History: Asthma, CVA/TIA, GERD/Reflux, Liver Disease, Osteoarthritis (OA) Additional Past Medical History / Comment(s): ELEVATED LIVER ENZYMES., HX OF PERFORATED STOMACH ULCER., sister states patient has HEPATITIS C, epigastric pain, recent admission for taking too much tylenol pm per pt. Etoh withdrawal seizures History of Any Multi-Drug Resistant Organisms: None Reported Past Surgical History: Hernia Repair, Tubal Ligation Additional Past Surgical History / Comment(s): PLASTIC SURGERY TO FOREHEAD, PERFORATED STOMACH ULCER. laser surgery to right leg for varicose veins Past Anesthesia/Blood Transfusion Reactions: No Reported Reaction Past Psychological History: ADD/ADHD, Anxiety, Depression Smoking Status: Current every day smoker Past Alcohol Use History: Daily, Heavy Past Drug Use History: Marijuana, Methamphetamine, Prescription Drug Abuse - Past Family History Mother Family Medical History: Cancer Additional Family Medical History / Comment(s): OVARIAN CA Father History Unknown: Yes Additional Family Medical History / Comment(s): father when patient was very young (2 year old), he of a gunshot wound outside of a bar at the age of 24 General Exam Limitations: altered mental status General appearance: alert, appears intoxicated Head exam: Present: atraumatic, normocephalic Eye exam: Present: normal appearance, PERRL, EOMI, nystagmus. Absent: scleral icterus, conjunctival injection ENT exam: Present: normal oropharynx, TM's normal bilaterally, other (There is abrasion to the bridge of the nose) Neck exam: Present: normal inspection. Absent: tenderness Respiratory exam: Present: normal lung sounds bilaterally. Absent: respiratory distress, wheezes, rales, rhonchi, stridor, accessory muscle use Cardiovascular Exam: Present: regular rate, normal rhythm, normal heart sounds. Absent: systolic murmur, diastolic murmur, rubs, gallop GI/Abdominal exam: Present: soft. Absent: distended, tenderness, guarding, rebound, rigid, mass Extremities exam: Present: normal inspection, normal capillary refill. Absent: pedal edema, calf tenderness Back exam: Present: normal inspection. Absent: CVA tenderness (R), CVA tenderness (L) Neurological exam: Present: alert. Absent: oriented X3, motor sensory deficit Skin exam: Present: warm, dry, normal color, abrasion. Absent: rash Course Vital Signs 09/25/24 09/25/24 22:42 23:53 Temperature 97.8 F 97.6 F Pulse Rate 72 74 Respiratory 19 17 Rate Blood Pressure 135/92 127/98 O2 Sat by Pulse 100 98 Oximetry EKG Findings - EKG Results: EKG: interpreted by YON, sinus rhythm (Rate 71 bpm), normal QRS, normal ST/T - Blocks, Dawn, Hypertrophy, ST Abn: QRS axis and voltage: left axis deviation (-30 to -90) Medical Decision Making - Medical Decision Making The patient had CT scan of the brain due to the use of blood thinners and the fact that she is an unreliable examination due to the alcohol intoxication I interpreted the CT as negative for acute intracranial hemorrhage, mass effect, midline shift. Was pt. sent in by a medical professional or institution (, PA, AIRCRAFT LOAD CONTROLLER, urgent care, hospital, or halfway...) When possible be specific @ -[No] Did you speak to anyone other than the patient for history (EMS, parent, family, police, friend...)? What history was obtained from this source @ -[No] Did you review nursing and triage notes (agree or disagree)? Why? @ -[I reviewed and agree with nursing and triage notes] Were old charts reviewed (outside hosp., previous admission, EMS record, old EKG, old radiological studies, urgent care reports/EKG's, halfway records)? Report findings @ -[No old charts were reviewed] Differential Diagnosis (chest pain, altered mental status, abdominal pain women, abdominal pain men, vaginal bleeding, weakness, fever, dyspnea, syncope, headache, dizziness, GI bleed, back pain, seizure, CVA, palpatations, mental health, musculoskeletal)? @ -[Differential Musculoskeletal Muscular strain, contusion, ligament sprain, fracture, arthritis, septic arthritis, bursitis, cellulitis, muscle spasm, nerve compression, DVT, arterial occlusion, herpes zoster, electrolyte abnormality, tumor.... This is not meant to be in all inclusive list EKG interpreted by me (3pts min.). @ -[As above] X-rays interpreted by me (1pt min.). @ -[None done] CT interpreted by me (1pt min.). @ -[I interpreted as above U/S interpreted by me (1pt. min.). @ -[None done] What testing was considered but not performed or refused? (CT, X-rays, U/S, labs)? Why? @ -[None] What meds were considered but not given or refused? Why? @ -[None] Did you discuss the management of the patient with other professionals (professionals i.e. , PA, AIRCRAFT LOAD CONTROLLER, lab, RT, psych nurse, neonatal social worker, german professor, teacher, control officer manager, medical case manager)? Give summary @ -[No] Was smoking cessation discussed for >3mins.? @ -[No] Was critical care preformed (if so, how long)? @ -[No] Were there social determinants of health that impacted care today? How? (Homelessness, low income, unemployed, alcoholism, drug addiction, transportation, low edu. Level, literacy, decrease access to med. care, long-term, rehab)? @ -[No] Was there de-escalation of care discussed even if they declined (Discuss DNR or withdrawal of care, Hospice)? DNR status @ -[No] What co-morbidities impacted this encounter? (DM, HTN, Smoking, COPD, CAD, Cancer, CVA, ARF, Chemo, Hep., AIDS, mental health diagnosis, sleep apnea, morbid obesity)? @ -[Anticoagulant therapy Was patient admitted / discharged? Hospital course, mention meds given and route, prescriptions, significant lab abnormalities, going to OR and other pertinent info. @ -[Patient is 68-year-old woman here to have evaluation after fall. Due to the use of anticoagulant therapy and her being intoxicated limiting the mental status exam, patient had CT scan. Following that the patient is cleared to be discharged to home. Undiagnosed new problem with uncertain prognosis? @ -[No] Drug Therapy requiring intensive monitoring for toxicity (Heparin, Nitro, Insulin, Cardizem)? @ -[No] Were any procedures done? @ -[No] Diagnosis/symptom? @ -[Acute fall injury Closed head injury Acute alcohol intoxication Abrasion to the nose Acute, or Chronic, or Acute on Chronic? @ -[Acute Uncomplicated (without systemic symptoms) or Complicated (systemic symptoms)? @ -Uncomplicated Side effects of treatment? @ -[No] Exacerbation, Progression, or Severe Exacerbation? @ -[No] Poses a threat to life or bodily function? How? (Chest pain, [place], [place], pneumonia, PE, COPD, DKA, ARF, appy, cholecystitis, CVA, Diverticulitis, Homicidal, Suicidal, threat to staff... and all critical care pts) @ -[No] All treatments are based on ideal body weight as in ED triage Disposition Clinical Impression: Fall, Alcoholic intoxication, Nasal bone fractures Disposition: HOME SELF-CARE Condition: Good Instructions (If sedation given, give patient instructions): Nasal Fracture (ED), Fall Prevention for Older Adults (ED) Is patient prescribed a controlled substance at d/c from ED?: No Referrals: Nonstaff,Physician [Primary Care Provider] - 1-2 days
--- NOTE | 2024-09-25 23:24 | CT ---
EXAM: CT Head Without Intravenous Contrast CLINICAL HISTORY: ITS.REASON CT Reason: fall TECHNIQUE: Axial computed tomography images of the head/brain without intravenous contrast. CTDI is 45.3 mGy and DLP is 1053 mGy-cm. This CT exam was performed using one or more of the following dose reduction techniques: automated exposure control, adjustment of the mA and/or kV according to patient size, and/or use of iterative reconstruction technique. COMPARISON: Prior head CT from February 13, 2024. FINDINGS: Brain: Unremarkable. No hemorrhage. No significant white matter disease. No edema. Ventricles: Unremarkable. No ventriculomegaly. Bones/joints: Bilateral nasal bone fractures.. Soft tissues: Mild soft tissue swelling over the forehead with small hematoma. Moderate soft tissue swelling around the nose. Sinuses: Chronic right ethmoid sinusitis. No acute sinusitis. Mastoid air cells: Unremarkable as visualized. No mastoid effusion. IMPRESSION: No evidence of acute intracranial pathology. Bilateral nasal bone fractures. EXAM: CT Cervical Spine Without Intravenous Contrast CLINICAL HISTORY: ITS.REASON CT Reason: fall TECHNIQUE: Axial computed tomography images of the cervical spine without intravenous contrast. CTDI is 8.6 mGy and DLP is 200.2 mGy-cm. This CT exam was performed using one or more of the following dose reduction techniques: automated exposure control, adjustment of the mA and/or kV according to patient size, and/or use of iterative reconstruction technique. COMPARISON: No relevant prior studies available. 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 Discs/spinal canal/neural foramina: No acute findings. Critical spinal canal stenosis at C4-5 and C6-7. Soft tissues: Bilateral calcified thyroid nodules. IMPRESSION: No evidence of acute cervical spine pathology. Critical spinal canal stenosis at C4-5 and C6-7. Recommend MRI of the cervical spine to evaluate for myelopathy.
[2024-09-25] MEDS: DIPH,PERTUS(ACELL)TETVAC-LF 0.5 ML VIAL IM ONE (23:51)
[2024-09-26 00:11] VITALS: BP 127/98; PULSE 74; RESP 17; TEMP 97.6
== END 2024-09-26 00:05 | disposition home or self-care (01) ==
LOC: EC 22:41
DX: S02.2XXA Fracture of nasal bones, initial encounter for closed fracture (principal); F10.129 Alcohol abuse with intoxication, unspecified; F17.200 Nicotine dependence, unspecified, uncomplicated; Z23 Encounter for immunization; W01.0XXA Fall on same level from slipping, tripping and stumbling without subsequent striking against object, initial encounter; Y90.9 Presence of alcohol in blood, level not specified
CPT/HCPCS: 70450; 72125; 90471; 90715; 99284